=== PATIENT | female | born 1945 | race Caucasian/White ===

== ENCOUNTER 2019-07-17 17:29 | Inpatient (IN) | payer MEDICARE, MEDICAID, SELFPAY ==
[2019-07-17 17:30] VITALS: BP 137/50; PULSE 121; RESP 26; TEMP 37.4; O2SAT 92; BMI 42.9
--- NOTE | 2019-07-17 17:38 | W.ED.NAVMDI ---
Documented by User: Alex Ball DO 07/19/19 06:46 HPI - Nausea/Vomiting/Diarrhea General: Chief complaint: Abdominal Pain Stated complaint: n/v Time Seen by Provider: 07/17/19 17:33 History of Present Illness: HPI Narrative: 74-year-old female presents emergency room with complaints of nausea vomiting had a couple episodes of diarrhea yesterday denies hematochezia melena hematemesis or coffee-ground emesis. She has had recurrent UTIs in the past. She reports a low-grade fever and feeling very dry. MD elicited complaint: nausea, vomiting, diarrhea and abdominal pain (Mild diffuse) Onset (ago): day(s) (2-3) Associated nausea: Yes Associated symtoms: Reports anxiety, fatigue, malaise and nausea; Denies bloating, chest pain or dysuria Review of Systems Const: Reports: fever, chills, body aches, change in appetite, fatigue and malaise ENMT: Denies: throat pain, ear pain, nasal discharge or nasal congestion Card: Reports: shortness of breath on exertion (Chronic); Denies: chest pain, edema or shortness of breath when lying down Resp: Denies: shortness of breath, productive cough or non-productive cough GI: Reports: abdominal pain (Diffuse mild), nausea, vomiting and diarrhea (1-2 episodes yesterday); Denies: vomiting blood, coffee grounds in vomit, constipation, bloating, blood in stool or black tarry stool : Denies: flank pain, difficulty urinating, painful urination, urinary frequency or urinary urgency Musc: Reports: back pain (Chronic) Skin/Breast: Denies: rash or itching Psych: Reports: anxiety Ramsey/Lymph: Reports: easy bruising PFSH ED PFSH: Statuses (acute, chronic, etc) shown below reflect problem list status as previously entered and may not be historically accurate Medical History (Updated 07/19/19 @ 06:45 by Alex Ball DO) C. difficile colitis (Acute) Chronic atrial fibrillation (Acute) COPD (chronic obstructive pulmonary disease) (Acute) Coronary artery disease (Acute) Diabetes mellitus (Acute) Gastroesophageal reflux disease (Acute) History of ESBL E. coli infection (Acute) History of MRSA infection (Acute) History of small bowel obstruction (Acute) Medically managed to date HTN (hypertension), malignant (Acute) Hyperlipidemia (Acute) Morbid obesity (Acute) Surgical History History of appendectomy (Acute) History of bladder suspension procedure (Acute) History of cholecystectomy (Acute) History of orthopedic surgery (Acute) Wrist and left leg History of tubal ligation (Acute) Family History Other CAD (coronary artery disease) Cancer Social History Smoking and tobacco status: former smoker Alcohol intake: never Substance/Drug Use: never Caregiver/support person: Yes (Son as well as some home health) Physical Exam Const: COMMON NORMALS: no apparent distress GENERAL APPEARANCE: cooperative and comfortable ORIENTATION/CONSCIOUSNESS: Yes awake, Yes oriented to person, Yes oriented to place and Yes oriented to time HENMT: COMMON NORMALS: normocephalic, head/scalp atraumatic, hearing grossly normal bilaterally, external ears normal, EAC's normal, TM's normal bilaterally, nasal mucous membranes and turbinates normal, moist oral mucous membranes and oropharynx normal HEAD & SCALP: normocephalic and atraumatic NOSE: nasal mucous membranes and turbinates normal EXTERNAL EAR: Yes external ears normal EXTERNAL AUDITORY CANAL: EAC's normal TYMPANIC MEMBRANE: TM's normal bilaterally Eye: COMMON NORMALS: PERRL, EOMs intact bilaterally, conjunctivae normal and no scleral icterus CONJUNCTIVA: Yes conjunctivae normal PUPIL: Yes PERRL Neck/C-Spine: COMMON NORMALS: full ROM, no lymphadenopathy, supple and no JVD Lymph: LYMPHATIC: no lymphadenopathy noted and no lymphedema noted Resp: COMMON NORMALS: normal respiratory effort, no retractions, no use of accessory muscles and clear to auscultation bilaterally AUSCULTATION: clear to auscultation bilaterally Cardio: COMMON NORMALS: no JVD, regular rate, regular rhythm and no murmurs RATE: regular rate RHYTHM: regular rhythm GI: COMMON NORMALS: soft to palpation AUSCULTATION: Yes normoactive bowel sounds PALPATION: Yes soft, Yes tender (Mild diffuse), No guarding and No rigid Extremity: COMMON NORMALS: normal to inspection, normal capillary refill, no clubbing, cyanosis or edema, no calf tenderness and no pedal edema Neuro: SENSORIUM/ORIENTATION: Yes oriented to person, Yes oriented to place and Yes oriented to time Skin: COMMON NORMALS: no rashes or lesions noted GENERAL SKIN EXAM: no rashes or lesions noted Course ED course: Patient initially seen by myself and chart chart signed off to Dr. Nielsen. I had examined patient and ordered initial labs. Vital Signs: Vital signs: Vital Signs Temperature 98.7 F 07/19/19 03:26 Pulse Rate 91 07/19/19 06:00 Respiratory Rate 22 H 07/19/19 06:00 Blood Pressure 105/69 07/19/19 06:00 Pulse Oximetry 97 07/19/19 06:00 MDM - Nausea/Vomiting/Diarrhea Lab Data: Labs: Lab Results 07/17/19 07/17/19 07/17/19 Range/Units 17:58 17:58 17:58 WBC 22.9 H (4.0-10.0) 10^3/ uL RBC 5.35 H (4.1-5.3) 10^6/u L Hgb 15.4 H (11.5-15.3) g/dL Hct 49.3 H (37.0-47.0) % MCV 92.1 (81-99) fL MCH 28.8 (28.0-34.0) pg MCHC 31.2 (30.0-36.0) g/dL RDW 14.2 (12.1-15.1) % Plt Count 253 (130-400) 10^3/c mm MPV 12.4 H (7.4-10.4) fL Neut % (Auto) 85.3 % Lymph % (Auto) 3.8 % [place] % (Auto) 9.8 % Eos % (Auto) 0.0 % Baso % (Auto) 0.4 % Neut # (Auto) 19.6 H (1.8-7.7) 10^3/u L Lymph # (Auto) 0.9 (0.8-4.8) 10^3/u L [place] # (Auto) 2.2 H (0.2-0.9) 10^3/u L Eos # (Auto) 0.0 (0.0-0.8) 10^3/u L Baso # (Auto) 0.1 (0.0-0.1) 10^3/u L Nucleated RBC % (a uto) 0 % Nucleated RBCs # 0.0 /100WBC PT (10.5-13.3) SECO NDS INR (0.8-1.2) Sodium 129 L (136-145) mmol/L Potassium 3.8 (3.5-5.1) mmol/L Chloride 84 L (98-107) mmol/L Carbon Dioxide 30 H (22-29) mmol/L Anion Gap 18.8 (5-19) BUN 30 H (8-23) mg/dL Creatinine 1.1 H (0.5-0.9) mg/dL Glucose 605 H* (74-106) mg/dL Lactic Acid (0.5-2.2) mmol/L Lactate 2.9 H (0.5-2.2) mmol/L Calcium 10.1 (8.8-10.2) mg/Dl Total Bilirubin 0.5 (0.15-1.2) mg/dL AST 15 (0-32) U/L ALT 18 (0-33) U/L Alkaline Phosphata se 158 H (35-105) IU/L Total Protein 7.1 (6.6-8.7) g/dL Albumin 3.6 (3.5-5.2) g/dL Globulin 3.5 (1.3-4.6) g/dL 07/17/19 07/17/19 Range/Units 17:58 21:44 WBC (4.0-10.0) 10^3/ uL RBC (4.1-5.3) 10^6/u L Hgb (11.5-15.3) g/dL Hct (37.0-47.0) % MCV (81-99) fL MCH (28.0-34.0) pg MCHC (30.0-36.0) g/dL RDW (12.1-15.1) % Plt Count (130-400) 10^3/c mm MPV (7.4-10.4) fL Neut % (Auto) % Lymph % (Auto) % [place] % (Auto) % Eos % (Auto) % Baso % (Auto) % Neut # (Auto) (1.8-7.7) 10^3/u L Lymph # (Auto) (0.8-4.8) 10^3/u L [place] # (Auto) (0.2-0.9) 10^3/u L Eos # (Auto) (0.0-0.8) 10^3/u L Baso # (Auto) (0.0-0.1) 10^3/u L Nucleated RBC % (a uto) % Nucleated RBCs # /100WBC PT 15.50 H (10.5-13.3) SECO NDS INR 1.19 (0.8-1.2) Sodium (136-145) mmol/L Potassium (3.5-5.1) mmol/L Chloride (98-107) mmol/L Carbon Dioxide (22-29) mmol/L Anion Gap (5-19) BUN (8-23) mg/dL Creatinine (0.5-0.9) mg/dL Glucose (74-106) mg/dL Lactic Acid 4.6 H* (0.5-2.2) mmol/L Lactate (0.5-2.2) mmol/L Calcium (8.8-10.2) mg/Dl Total Bilirubin (0.15-1.2) mg/dL AST (0-32) U/L ALT (0-33) U/L Alkaline Phosphata se (35-105) IU/L Total Protein (6.6-8.7) g/dL Albumin (3.5-5.2) g/dL Globulin (1.3-4.6) g/dL Discharge Plan Discharge Patient Disposition: Admitted As Inpatient Admit Provider: Kerry Cruz Clinical Impression: Small bowel obstruction, Diabetes mellitus, Acute kidney injury, Chronic atrial fibrillation, Dehydration, Severe sepsis Condition: Stable Interventions: ED Discharge Assessment Last Done: 07/18/19 00:14 Discharge Date/Time: 07/18/19 00:16 Coding Level of Care Code ED Applications Engineer for [place] Fwd Exam Problem Focused Documented by User: Luna Nielsen MD 07/18/19 00:05 HPI - Nausea/Vomiting/Diarrhea General: Chief complaint: Abdominal Pain Stated complaint: n/v Time Seen by Provider: 07/17/19 17:33 PFSH ED PFSH: Statuses (acute, chronic, etc) shown below reflect problem list status as previously entered and may not be historically accurate Medical History (Updated 07/19/19 @ 06:45 by Alex Ball DO) C. difficile colitis (Acute) Chronic atrial fibrillation (Acute) COPD (chronic obstructive pulmonary disease) (Acute) Coronary artery disease (Acute) Diabetes mellitus (Acute) Gastroesophageal reflux disease (Acute) History of ESBL E. coli infection (Acute) History of MRSA infection (Acute) History of small bowel obstruction (Acute) Medically managed to date HTN (hypertension), malignant (Acute) Hyperlipidemia (Acute) Morbid obesity (Acute) Surgical History History of appendectomy (Acute) History of bladder suspension procedure (Acute) History of cholecystectomy (Acute) History of orthopedic surgery (Acute) Wrist and left leg History of tubal ligation (Acute) Family History Other CAD (coronary artery disease) Cancer Social History Smoking and tobacco status: former smoker Alcohol intake: never Substance/Drug Use: never Caregiver/support person: Yes (Son as well as some home health) Course Vital Signs: Vital signs: Vital Signs Temperature 98.7 F 07/19/19 03:26 Pulse Rate 91 07/19/19 06:00 Respiratory Rate 22 H 07/19/19 06:00 Blood Pressure 105/69 07/19/19 06:00 Pulse Oximetry 97 07/19/19 06:00 MDM - Nausea/Vomiting/Diarrhea MDM Narrative: Medical decision making narrative: Patient presents here with fever does have a white count and slightly elevated lactic acid. Patient likely has a UTI also has a small bowel obstruction likely causing her vomiting. Patient given IV antibiotics here and fluids and I spoke to hospitalist and will admit to the ICU. Patient has been stable while here with a normal blood pressure. Lab Data: Labs: Lab Results 07/17/19 07/17/19 07/17/19 Range/Units 17:58 17:58 17:58 WBC 22.9 H (4.0-10.0) 10^3/ uL RBC 5.35 H (4.1-5.3) 10^6/u L Hgb 15.4 H (11.5-15.3) g/dL Hct 49.3 H (37.0-47.0) % MCV 92.1 (81-99) fL MCH 28.8 (28.0-34.0) pg MCHC 31.2 (30.0-36.0) g/dL RDW 14.2 (12.1-15.1) % Plt Count 253 (130-400) 10^3/c mm MPV 12.4 H (7.4-10.4) fL Neut % (Auto) 85.3 % Lymph % (Auto) 3.8 % [place] % (Auto) 9.8 % Eos % (Auto) 0.0 % Baso % (Auto) 0.4 % Neut # (Auto) 19.6 H (1.8-7.7) 10^3/u L Lymph # (Auto) 0.9 (0.8-4.8) 10^3/u L [place] # (Auto) 2.2 H (0.2-0.9) 10^3/u L Eos # (Auto) 0.0 (0.0-0.8) 10^3/u L Baso # (Auto) 0.1 (0.0-0.1) 10^3/u L Nucleated RBC % (a uto) 0 % Nucleated RBCs # 0.0 /100WBC PT (10.5-13.3) SECO NDS INR (0.8-1.2) Sodium 129 L (136-145) mmol/L Potassium 3.8 (3.5-5.1) mmol/L Chloride 84 L (98-107) mmol/L Carbon Dioxide 30 H (22-29) mmol/L Anion Gap 18.8 (5-19) BUN 30 H (8-23) mg/dL Creatinine 1.1 H (0.5-0.9) mg/dL Glucose 605 H* (74-106) mg/dL Lactic Acid (0.5-2.2) mmol/L Lactate 2.9 H (0.5-2.2) mmol/L Calcium 10.1 (8.8-10.2) mg/Dl Total Bilirubin 0.5 (0.15-1.2) mg/dL AST 15 (0-32) U/L ALT 18 (0-33) U/L Alkaline Phosphata se 158 H (35-105) IU/L Total Protein 7.1 (6.6-8.7) g/dL Albumin 3.6 (3.5-5.2) g/dL Globulin 3.5 (1.3-4.6) g/dL 07/17/19 07/17/19 Range/Units 17:58 21:44 WBC (4.0-10.0) 10^3/ uL RBC (4.1-5.3) 10^6/u L Hgb (11.5-15.3) g/dL Hct (37.0-47.0) % MCV (81-99) fL MCH (28.0-34.0) pg MCHC (30.0-36.0) g/dL RDW (12.1-15.1) % Plt Count (130-400) 10^3/c mm MPV (7.4-10.4) fL Neut % (Auto) % Lymph % (Auto) % [place] % (Auto) % Eos % (Auto) % Baso % (Auto) % Neut # (Auto) (1.8-7.7) 10^3/u L Lymph # (Auto) (0.8-4.8) 10^3/u L [place] # (Auto) (0.2-0.9) 10^3/u L Eos # (Auto) (0.0-0.8) 10^3/u L Baso # (Auto) (0.0-0.1) 10^3/u L Nucleated RBC % (a uto) % Nucleated RBCs # /100WBC PT 15.50 H (10.5-13.3) SECO NDS INR 1.19 (0.8-1.2) Sodium (136-145) mmol/L Potassium (3.5-5.1) mmol/L Chloride (98-107) mmol/L Carbon Dioxide (22-29) mmol/L Anion Gap (5-19) BUN (8-23) mg/dL Creatinine (0.5-0.9) mg/dL Glucose (74-106) mg/dL Lactic Acid 4.6 H* (0.5-2.2) mmol/L Lactate (0.5-2.2) mmol/L Calcium (8.8-10.2) mg/Dl Total Bilirubin (0.15-1.2) mg/dL AST (0-32) U/L ALT (0-33) U/L Alkaline Phosphata se (35-105) IU/L Total Protein (6.6-8.7) g/dL Albumin (3.5-5.2) g/dL Globulin (1.3-4.6) g/dL Imaging Data^: CXR: My impression: no acute abnormality Discharge Plan Discharge Patient Disposition: Admitted As Inpatient Admit Provider: Kerry Cruz Clinical Impression: Small bowel obstruction, Diabetes mellitus, Acute kidney injury, Chronic atrial fibrillation, Dehydration, Severe sepsis Condition: Stable Interventions: ED Discharge Assessment Last Done: 07/18/19 00:14 Discharge Date/Time: 07/18/19 00:16 Coding Level of Care Code ED Applications Engineer for [place] Fwd Exam Problem Focused
--- NOTE | 2019-07-17 17:43 | XR_ITS ---
WS: [id number] Portable AP upright chest, 07/17/2019, 1755 hours Clinical Data: Dyspnea Comparison: Portable chest, 05/20/2019. Findings: No nodules, masses or effusions are seen. The heart is normal. The pulmonary vascularity is not increased. No pneumonia or pneumothorax is seen. There is atelectasis and/or effusion at the lef t costophrenic angle. The aortic arch and descending aorta show calcification and tortuosity. There i s a slight dextroscoliosis. XR/XR chest 1V portable [id number] Impression: 1. Minimal atelectasis and/or effusion at left costophrenic angle. 2. Atherosclerosis.
[2019-07-17 18:04] LABS: Basophils # 0.1 10^3/uL (0.0-0.1); Basophils % 0.4 %; Hematocrit 49.3 % (37.0-47.0); Hemoglobin 15.4 g/dL (11.5-15.3); Lymphocytes # 0.9 10^3/uL (0.8-4.8); Lymphocytes % 3.8 %; Mean Corpuscular HGB Conc 31.2 g/dL (30.0-36.0); Mean Corpuscular Hemoglobin 28.8 pg (28.0-34.0); Mean Corpuscular Volume 92.1 fL (81-99); Mean Platelet Volume 12.4 fL (7.4-10.4); Monocytes # 2.2 10^3/uL (0.2-0.9); Monocytes % 9.8 %; Neutrophils # 19.6 10^3/uL (1.8-7.7); Neutrophils % 85.3 %; Nucleated Red Blood Cells % 0 %; Platelet Count 253 10^3/cmm (130-400); Red Blood Count 5.35 10^6/uL (4.1-5.3); Red Cell Distribution Width 14.2 % (12.1-15.1); White Blood Count 22.9 10^3/uL (4.0-10.0)
--- NOTE | 2019-07-17 18:16 | CTR_ITS ---
PROCEDURE INFORMATION: Exam: CT Abdomen And Pelvis With Contrast Exam date and time: 07/17/2019 6:32 PM Age: 74 years old Clinical indication: Nausea and vomiting; Abdominal pain; Prior surgery; Surgery type: Left femur, hyst, gb, appy; Additional info: Abd pain TECHNIQUE: Imaging protocol: Computed tomography of the abdomen and pelvis with intravenous contrast. Total DLP: 1810.75 mGy-cm Radiation optimization: All CT scans at this facility use at least one of these dose optimization techniques: automated exposure control; mA and/or kV adjustment per patient size (includes targeted exams where dose is matched to clinical indication); or iterative reconstruction. Contrast material: VISI 320; Contrast volume: 95 ml; Contrast route: IV; COMPARISON: CT abdomen pelvis w con* [id number] 02/01/2018 3:00 PM FINDINGS: Liver: There is no focal abnormality within the liver. Gallbladder and bile ducts: There has been a cholecystectomy. Pancreas: The pancreas is normal. Spleen: The spleen is normal. Adrenals: The adrenal glands are normal. Kidneys and ureters: Normal. No hydronephrosis. Stomach and bowel: Mild diverticulosis is present in the distal colon. There is no evidence of colitis/diverticulitis. There are dilated proximal small bowel loops and nondilated distal small bowel loops and colon. There is point of transition in the mid pelvis, likely representing adhesions. Appendix: Not identified Intraperitoneal space: Unremarkable. No free air. No significant fluid collection. Vasculature: The aorta demonstrates moderate atherosclerotic calcification. Lymph nodes: Unremarkable. No enlarged lymph nodes. Bladder: Unremarkable as visualized. Reproductive: There has been a hysterectomy. Bones/joints: Degenerative changes in the thoracic and lumbar spine are stable including severe compression deformity of L1. Soft tissues: Small periumbilical hernia containing fat is again identified. CT/CT abdomen pelvis w con* [id number] IMPRESSION: Small bowel obstruction Radiation Dose CTDIVOL = (mGy): DLP = 1810.75 (mGy-cm)
[2019-07-17 18:23] LABS: Alanine Aminotransferase 18 U/L (0-33); Albumin Level 3.6 g/dL (3.5-5.2); Alkaline Phosphatase 158 IU/L (35-105); Anion Gap 18.8 (5-19); Aspartate Amino Transferase 15 U/L (0-32); Blood Urea Nitrogen 30 mg/dL (8-23); Calcium 10.1 mg/Dl (8.8-10.2); Carbon Dioxide 30 mmol/L (22-29); Chloride 84 mmol/L (98-107); Globulin 3.5 g/dL (1.3-4.6); Potassium 3.8 mmol/L (3.5-5.1); Sodium 129 mmol/L (136-145); Total Bilirubin 0.5 mg/dL (0.15-1.2); Total Protein 7.1 g/dL (6.6-8.7)
[2019-07-17 18:30] LABS: Glucose 605 mg/dL (74-106)
[2019-07-17 18:32] LABS: Lactate (Lactic Acid level) 2.9 mmol/L (0.5-2.2)
[2019-07-17 18:37] VITALS: PULSE 119; RESP 17; O2SAT 91
--- NOTE | 2019-07-17 19:55 | PC.NURSE ---
linen change and hygiene clean completed. pt tolerated well. pt placed in gown and given blanket. pt placed on vital sign monitor, no further needs stated at this time.
[2019-07-17 19:56] VITALS: BP 91/68; O2SAT 97
--- NOTE | 2019-07-17 19:56 | PC.NURSE ---
RN and ED physician notified of blood pressure.
[2019-07-17] MEDS: insulin regular-human 100 units/1 mL 10 UNIT IVP (20:05)
[2019-07-17] MEDS: iodixanol 320 mg/mL 100mL Btl 95 ML IV (20:13)
[2019-07-17] MEDS: sodium chloride 0.9% 1,000 ML 999 ML IV ×2 (20:21→23:08)
[2019-07-17 20:22] VITALS: BP 100/81; PULSE 131; RESP 22; O2SAT 92
--- NOTE | 2019-07-17 20:54 | PC.NURSE ---
This nurse attempted multiple times to place moses catheter, patient's diana area excoriated, with patches of white clumpy discharge. After multiple attempts, MD was notified concerning failed attempts. Provider instructed that urine sample was needed and to place her on a bedpan to obtain sample.
[2019-07-17] MEDS: acetaminophen 325 mg Tablet 650 MG PO (20:56)
--- NOTE | 2019-07-17 21:45 | ECG_ITS ---
Measurements Intervals [place] Rate: 112 P: VT: 0 QRS: -7 QRSD: 73 T: 20 QT: 298 QTc: 408 Sinus tachycardia with significant baseline artifact LOW QRS VOLTAGE IN PRECORDIAL LEADS [QRS DEFLECTION < 1.0 mV IN CHEST LEADS] POSSIBLE ANTERIOR MYOCARDIAL INFARCTION [30 ms Q WAVE IN V3/V4, OR R < 0.2 mV IN V4], PROBABLY OLD POSSIBLE INFERIOR MYOCARDIAL INFARCTION [30 ms Q WAVE IN II/aVF], PROBABLY OLD ABNORMAL RHYTHM ECG Compared to ECG 05/20/2019 14:30:22 Myocardial infarct finding still present Electronically Signed On 07-18-2019 14:43:51 ARCHITECTURAL EXAMINER by Emerson Mcdermott M.D. [email or web address]
[2019-07-17] MEDS: aztreonam 2,000 MG in sodium chloride 0.9% (plus) 100 ML 200 MG IV (21:52)
[2019-07-17 22:21] LABS: Lactic Acid 4.6 mmol/L (0.5-2.2)
[2019-07-17 22:22] LABS: INR 1.19 (0.8-1.2)
[2019-07-17 22:34] LABS: ABG PCO2 44.3 mmHg (35-45); ABG PH Result 7.44 (7.35-7.45); Base Excess ABG 4.7 mmol/L (-2.0-2.0); Blood Gas Allen Test Pos; Blood Gas Sample Site Radial, right; Blood Gas Sample Type Arterial; HCO3 ABG 29.7 mmol/L (22-26); PO2 ABG 60.4 mmHg (80.0-100.0)
[2019-07-17 22:42] VITALS: BP 138/89; PULSE 115; RESP 26; O2SAT 91
[2019-07-17 23:00] VITALS: BP 111/85; PULSE 120; RESP 23; O2SAT 96
--- NOTE | 2019-07-17 23:10 | XR_ITS ---
WS: [id number] Portable AP upright chest, 07/17/2019, 2349 hours. Clinical Data: post NG tube Comparison: Portable chest, yesterday, 1755 hours. Findings: There is a nasogastric tube which appears to end in the stomach. The minimal atelectasis an d/or small effusion in the left costophrenic angle remains unchanged. No nodules, masses or effusions are seen. No pneumonia or pneumothorax is present. The aortic arch and descending aorta show minimal calcification and tortuosity. There is a minimal dextroscoliosis. XR/XR chest 1V portable [id number] Impression: 1. Nasogastric tube in good position. 2. No change in atelectasis and/or small left pleural effusion.
[2019-07-17 23:36] LABS: Glucose Point of Care 470 mg/dL (70-110)
[2019-07-18] VITALS (23 sets, daily range): BP systolic 80–169; BP diastolic 47–88; PULSE 87–120; RESP 12–26; TEMP 36.6–37.6; O2SAT 90–99; BMI 37.8
--- NOTE | 2019-07-18 00:12 | P.HP_ITS ---
Providers/Chief Complaint Admitting Physician: Kerry Cruz MD Primary Care Provider: Elaine Topete Chief Complaint: n/v History of Present Illness Purvi Sparks is a 74 year old female who presented to the emergency room with nausea and vomiting today. She had some loose bowel movements 2 days ago but has not had a bowel movement since then. She is had some mild abdominal discomfort primarily in the lower and central quadrant area. Emesis has been bilious in nature with no blood noted. There have been reports of some low- grade fevers. She has had some incontinence of urine but denies any other urinary changes. She has had a little bit of a cough and some shortness of breath but denied any chest pain. Escalation in her symptoms led to the ED visit today. In the emergency room a CT of the abdomen was done and showed evidence of dilated proximal small bowel with a transition point consistent with small bowel obstruction. NG tube was placed. She is being admitted for further evaluation and treatment. She has multiple laboratory study abnormalities. She has not been hypotensive but has been quite tachycardic. Thus far she is received 2 L of fluid. She also received some vancomycin and Azactam in the ER. Blood cultures have been collected. Her sugars were greater than 600 and she received some regular insulin. Review of Systems Const: Reports: fever, chills, body aches, fatigue, malaise and daytime sleepiness Eyes: Reports: change in vision ENMT: Reports: dry mouth and nasal congestion Card: Reports: chest pain and lightheadedness; Denies: edema Resp: Reports: shortness of breath, productive cough and non-productive cough GI: Reports: abdominal pain, nausea, vomiting, diarrhea, cramping and change in bowel habits; Denies: vomiting blood, belching, excessive passing of gas, blood in stool or black tarry stool : Reports: urinary incontinence; Denies: blood in urine Musc: Reports: extremity pain, muscle cramps and muscle weakness Skin/Breast: Reports: rash (groin, recently given some nystatin powder) Neuro: Reports: weakness in extremities (general) and difficulty walking Psych: Reports: anxiety and sleeping more Medications/Allergies Home Medications Medication Instructions Recorded Confirmed Last Taken Type apixaban [Eliquis] 5 mg PO BID 07/18/19 07/18/19 Unknown History diltiazem HCl 60 mg PO TID 07/18/19 07/18/19 Unknown History fluoxetine [Prozac] 20 mg PO DAILY 07/18/19 07/18/19 Unknown History furosemide [Lasix] 40 mg PO DAILY 07/18/19 07/18/19 Unknown History hydrocodone-acetaminophen [[place]] 1 tab PO Q6H PRN 07/18/19 07/18/19 Unknown History lisinopril 5 mg PO DAILY 07/18/19 07/18/19 Unknown History ondansetron HCl [Zofran] 4 mg PO Q6H PRN 07/18/19 07/18/19 Unknown History oxybutynin chloride 5 mg PO BID 07/18/19 07/18/19 Unknown History ropinirole 1 mg PO DAILY 07/18/19 07/18/19 Unknown History rosuvastatin 10 mg PO DAILY 07/18/19 07/18/19 Unknown History Allergies Allergy/AdvReac Type Severity Reaction Status Date / Time morphine Allergy ALGY-Rash Verified 07/17/19 17:47 quinine Allergy ALGY-Rash Verified 07/17/19 17:47 Sulfa (Sulfonamide Allergy ALGY-Rash Verified 07/17/19 17:47 Antibiotics) Penicillins AdvReac ALGY-Rash Verified 07/17/19 17:47 PFSH Acute PFSH: Statuses (acute, chronic, etc) shown below reflect problem list status as previously entered and may not be historically accurate Medical History Chronic atrial fibrillation (Acute) COPD (chronic obstructive pulmonary disease) (Acute) Coronary artery disease (Acute) Diabetes mellitus (Acute) Gastroesophageal reflux disease (Acute) History of ESBL E. coli infection (Acute) History of MRSA infection (Acute) History of small bowel obstruction (Acute) Medically managed to date HTN (hypertension), malignant (Acute) Hyperlipidemia (Acute) Morbid obesity (Acute) Surgical History History of appendectomy (Acute) History of bladder suspension procedure (Acute) History of cholecystectomy (Acute) History of orthopedic surgery (Acute) Wrist and left leg History of tubal ligation (Acute) Family History Other CAD (coronary artery disease) Cancer Social History Smoking and tobacco status: former smoker Alcohol intake: never Substance/Drug Use: never Caregiver/support person: Yes (Son as well as some home health) Vitals/I&O/Wt Last Vital Signs Temp 99.4 F 07/17/19 17:30 Pulse 120 H 07/17/19 23:00 Resp 23 H 07/17/19 23:00 BP 111/85 07/17/19 23:00 Pulse Ox 96 07/17/19 23:00 07/17/19 07/17/19 07/18/19 14:59 22:59 06:59 Intake Total 1100 / 1100 Balance 1100 / 1100 Weight last 48 hrs Weight 113.398 kg Physical Exam Const: COMMON NORMALS: alert GENERAL APPEARANCE: frail appearing and other (ill appearing) NUTRITIONAL APPEARANCE: obese HENMT: COMMON NORMALS: normocephalic MOUTH: other (dry) Eye: COMMON NORMALS: EOMs intact bilaterally and no scleral icterus Neck/C-Spine: COMMON NORMALS: supple and no meningeal signs Resp: COMMON NORMALS: no retractions and clear to auscultation bilaterally EFFORT & INSPECTION: Yes tachypneic AUSCULTATION: diminished lung sounds bilateral in the lower lung guadalupe Cardio: COMMON NORMALS: peripheral pulses 2+ throughout RATE: tachycardic RHYTHM: regular rhythm PERIPHERAL PULSES: other (brisk cap refill) GI: COMMON NORMALS: soft to palpation AUSCULTATION: Yes hypoactive bowel sounds PALPATION: No firm, Yes tender Details: LLQ (mild, no rebound or gaurding), No guarding, No rigid and No rebound tenderness present : BLADDER/KIDNEY EXAM: Yes catheter in place Catheter type (Female): urethral Extremity: COMMON NORMALS: no pedal edema NARRATIVE EXTREMITY EXAM: some deformity left foot with dorsiflexion Skin: GENERAL SKIN EXAM: dry skin, no mottling and turgor decreased RASHES: rashes noted (erythema, some sores groin area, odorous) Urinary Catheter Management^: Curry: Cath Placed During This Visit: no Urethral Indwelling: Yes Reason for Continuing Indwelling Catheter: Accurate Measurement of Urinary Output in Critically Ill Patients Sepsis: Is patient septic: Yes Focused sepsis exam performed: Yes Date exam was performed: 07/17/19 Time exam was performed: 10:15 Data Micro: Micro: Microbiology 07/17/19 20:00 Blood Culture - Pr eliminary Blood SPE[facility]IMEN [facility] 07/17/19 17:58 Blood Culture - Pr eliminary Blood SPECIMEN [facility] Other Data: Other data: 07/17/19 Range/Units 17:58 Sodium 129 L (136-145) mmol/L Potassium 3.8 (3.5-5.1) mmol/L Chloride 84 L (98-107) mmol/L Carbon Dioxide 30 H (22-29) mmol/L BUN 30 H (8-23) mg/dL Creatinine 1.1 H (0.5-0.9) mg/dL Glucose 605 H* (74-106) mg/dL Calcium 10.1 (8.8-10.2) mg/Dl AST 15 (0-32) U/L ALT 18 (0-33) U/L Alkaline Phosphata se 158 H (35-105) IU/L Total Protein 7.1 (6.6-8.7) g/dL Albumin 3.6 (3.5-5.2) g/dL 07/17/19 07/17/19 07/17/19 Range/Units 17:58 17:58 17:58 WBC 22.9 H (4.0-10.0) 10^3/ uL Hgb 15.4 H (11.5-15.3) g/dL Hct 49.3 H (37.0-47.0) % Plt Count 253 (130-400) 10^3/c mm PT 15.50 H (10.5-13.3) SECO NDS INR 1.19 (0.8-1.2) Lactic Acid (0.5-2.2) mmol/L Lactate 2.9 H (0.5-2.2) mmol/L 07/17/19 Range/Units 21:44 WBC (4.0-10.0) 10^3/ uL Hgb (11.5-15.3) g/dL Hct (37.0-47.0) % Plt Count (130-400) 10^3/c mm PT (10.5-13.3) SECO NDS INR (0.8-1.2) Lactic Acid 4.6 H* (0.5-2.2) mmol/L Lactate (0.5-2.2) mmol/L A&P Assessment and plan (1) Small bowel obstruction: Last bowel movement was a couple of days ago and was liquid in nature. She has had previous bowel obstructions that have been medically managed. Transition point is noted. Case has been discussed with Dr. Marina to make him aware of the situation but not demonstrating clinical findings of surgical abdomen at the moment. Status: Acute Code(s): K56.609 - Unspecified intestinal obstruction, unspecified as to partial versus complete obstruction (2) Severe sepsis: As evidenced by leukocytosis, tachycardia, suspected infection, acute kidney injury, lactic acidosis. Specific foci is not fully clear at this point in time. Abdomen is certainly a possibility however her physical exam does not go along with this being the source of such a significant infection. I still do not have any urine. No obvious pneumonia. She has some skin findings in the groin. Thus far her blood pressure is remaining stable fortunately. Status: Acute Code(s): A41.9 - Sepsis, unspecified organism; R65.20 - Severe sepsis without septic shock (3) Acute kidney injury: In May BUN and creatinine were 14/0.6 Status: Acute Code(s): N17.9 - Acute kidney failure, unspecified (4) Diabetes mellitus: Not controlled at all currently. I suspect some degree of chronic hyperglycemia exacerbated by the acute issues. 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 Marina, I have discussed with him Hold Eliquis secondary to potential need for surgical intervention SCDs for DVT prophylaxis presently Reattempt Curry catheter placement and get urinalysis, need to be able to watch urine output closely Subcutaneous insulin, monitor for need to initiate insulin drip Medications will be held presently Monitor closely for clinical decline Supportive care otherwise Full code I had an opportunity discussed with patient and son as well as with her earlier and get both an opportunity to ask questions. Attestations Medical Necessity Statement*: Anticipated stay greater than 2 midnights in a patient with small bowel obstruction and evidence of sepsis. Going to the ICU for critical care management. Other issues as noted. Coding Level of Care Code Acute Law Firm Partner for [facility] Fwd Diagnoses Small bowel obstruction K56.609 Severe sepsis A41.9; R65.20 Acute kidney injury N17.9 Diabetes mellitus E11.65; Z79.4 Diabetes mellitus type: type 2 Diabetes mellitus long term care pharmacist insulin use: with long term care pharmacist use Diabetes mellitus complication status: with hyperglycemia On apixaban therapy Z79.01 Chronic atrial fibrillation I48.20
--- NOTE | 2019-07-18 00:24 | XR_ITS ---
WS: [id number] Portable AP upright chest, 07/18/2019, 0300 hours. Clinical Data: cough Comparison: Portable chest, 07/17/2019, 2349 hours. Findings: The nasogastric tube remains in good position. There is minimal blunting of the left costop hrenic angle unchanged. The heart remains the same. The pulmonary vascularity is not increased. No pn eumonia or pneumothorax is seen. No nodules, masses or large effusions are seen. The aortic arch and descending aorta show calcification and tortuosity. There is a dextroscoliosis. Monitor leads are on the chest wall. XR/XR chest 1V portable [id number] Impression: 1. No change in nasogastric tube in minimal atelectasis and/or effusion in left costophrenic angle. 2. Negative for acute cardiovascular abnormalities.
[2019-07-18 00:29] LABS: Protein Urine Neg (Negative); Urine Appearance Cloudy (CLEAR); Urine Color Dark Yellow (Yellow); pH Urine 5 (5-7)
[2019-07-18 00:30] LABS: Add Urine Microscopic? YES; Bilirubin Urine 1+ (NEGATIVE); Blood Urine Neg (Negative); Glucose Urine UA 4+ (Normal); Ketones Urine Negative (Negative); Leukocyte Esterase Urine 1+ (Negative); Nitrate Urine Negative (Negative); Urobilinogen Urine Norm (Negative)
[2019-07-18 00:35] LABS: Add Urine Culture? No; Bacteria Urine 2+; RBC Urine 0-4 /hpf (0-2); Squamous Epithelial Cell Urine 15-25 (0-5)
--- NOTE | 2019-07-18 01:15 | PC.PHAR ---
Creatinine clearance is 77.6. Vancomycin is dosed at 2000mg IVPB every 24 hours to produce a predicted trough level of 18.74 (population based pharmacokinetic analysis). A trough level has been ordered from the lab to be obtained before the third dose to confirm and adjust if needed.
[2019-07-18] MEDS: metroNIDAZOLE IV 500 MG/100 ML PREMIX 100 MG IV ×2 (01:33→09:31)
[2019-07-18] MEDS: sodium chloride 0.9% 1,000 ML 150 ML IV ×2 (01:33→09:32)
[2019-07-18] MEDS: sodium chloride 0.9% 1,000 ML 999 ML IV (01:33)
[2019-07-18 01:52] LABS: Glucose Point of Care 456 mg/dL (70-110)
--- NOTE | 2019-07-18 01:53 | PC.NURSE ---
DR SHAWN ABDULLAHI WANTED NURSE TO CHECK BLOOD SUGAR. IT WAS 456. GAVE ORDER FOR 15 UNITS OF NOVOLOG.
[2019-07-18 03:07] LABS: Alanine Aminotransferase 17 U/L (0-33); Albumin Level 3.2 g/dL (3.5-5.2); Alkaline Phosphatase 119 IU/L (35-105); Anion Gap 13.7 (5-19); Aspartate Amino Transferase 17 U/L (0-32); Blood Urea Nitrogen 31 mg/dL (8-23); Calcium 9.1 mg/Dl (8.8-10.2); Carbon Dioxide 30 mmol/L (22-29); Chloride 89 mmol/L (98-107); Globulin 2.6 g/dL (1.3-4.6); Glucose 496 mg/dL (74-106); Magnesium 1.7 mg/dL (1.7-2.3); Phosphorus 2.6 mg/dL (2.5-4.5); Potassium 3.7 mmol/L (3.5-5.1); Sodium 129 mmol/L (136-145); Total Bilirubin 0.6 mg/dL (0.15-1.2); Total Protein 5.8 g/dL (6.6-8.7)
[2019-07-18 03:24] LABS: Basophils # 0.1 10^3/uL (0.0-0.1); Basophils % 0.6 %; Eosinophils % 0.1 %; Hematocrit 43.6 % (37.0-47.0); Hemoglobin 13.9 g/dL (11.5-15.3); Lymphocytes # 1.1 10^3/uL (0.8-4.8); Lymphocytes % 7.1 %; Mean Corpuscular HGB Conc 31.9 g/dL (30.0-36.0); Mean Corpuscular Volume 90.8 fL (81-99); Monocytes # 1.7 10^3/uL (0.2-0.9); Monocytes % 11.3 %; Neutrophils % 80.4 %; Nucleated Red Blood Cells % 0 %; Platelet Count 206 10^3/cmm (130-400); Red Cell Distribution Width 14.3 % (12.1-15.1); White Blood Count 14.9 10^3/uL (4.0-10.0)
[2019-07-18] MEDS: ondansetron 2 mg/ML SDV 2 mL 4 MG IVP (05:05)
--- NOTE | 2019-07-18 06:28 | PC.NURSE ---
SHIFT SUMMARY PT HAS BEEN ALERT AND SEEMS ORIENTATED. PT HAS BEEN TURNED Q2H. NO BREAKDOWN NOTED, SOME REDNESS UNDER BELLY FOLDS. NYSTATIN ORDERED. BOTTOM IS BLANCHING. PT IV REMAINS PATENT. PT STATES SHE DOES NOT WALK AT ALL. PT LUNGS REMAIN CLEAR, A FEW WHEEZES HAVE BEEN HEARD AT TIMES. NG TUBE IS ON LIS PER DR ABDULLAHI. SCDS APPLIED. PT COMPLAINED OF NAUSEA ONCE AND WAS GIVEN ZOFRAN TO PT.
[2019-07-18 07:01] LABS: Lactic Acid 2.5 mmol/L (0.5-2.2)
--- NOTE | 2019-07-18 07:37 | P.CONIM_ITS ---
Providers/Reason For Consult Consulting Physican/Specialty*: Reason for Consult*: Small bowel obstruction Attending Physician: Kerry Cruz MD Primary Care Provider: Elaine Topete History of Present Illness History of Present Illness Chief complaint : Nausea and vomiting HPI Purvi Sparks is a pleasant 74 year old female , presented to the emergency department with history of nausea and vomiting, patient has been having concomitant loose stools for the past couple of days or so but that after she did not have a bowel movement, yet she passed gas yesterday, recalls that she has some abdominal pain mostly in the lower part of the abdomen in addition patient does have some cough and shortness of breath, she presented to the emergency department a CT scan of the abdomen and pelvis showed small bowel obstruction, general surgery was consulted for further evaluation and potential management. NG tube was inserted in the ER not much came out Review of Systems Const: Reports: fever, chills, malaise, daytime sleepiness and other (Fatigue); Denies: body aches Eyes: Reports: change in vision ENMT: Reports: dry mouth Card: Reports: chest pain and lightheadedness Resp: Reports: shortness of breath GI: Reports: abdominal pain, nausea, vomiting and diarrhea; Denies: difficulty swallowing, constipation or blood in stool : Reports: urinary incontinence Neuro: Denies: headache Psych: Denies: anxiety or depression Meds/Allergies Home Medications and Allergies Home Medications Medication Instructions Recorded Confirmed Type apixaban [Eliquis] 5 mg PO BID 07/18/19 07/18/19 History diltiazem HCl 60 mg PO TID 07/18/19 07/18/19 History fluoxetine [Prozac] 20 mg PO DAILY 07/18/19 07/18/19 History furosemide [Lasix] 40 mg PO DAILY 07/18/19 07/18/19 History hydrocodone-acetaminophen [[place]] 1 tab PO Q6H PRN 07/18/19 07/18/19 History lisinopril 5 mg PO DAILY 07/18/19 07/18/19 History ondansetron HCl [Zofran] 4 mg PO Q6H PRN 07/18/19 07/18/19 History oxybutynin chloride 5 mg PO BID 07/18/19 07/18/19 History ropinirole 1 mg PO DAILY 07/18/19 07/18/19 History rosuvastatin 10 mg PO DAILY 07/18/19 07/18/19 History Allergies Allergy/AdvReac Type Severity Reaction Status Date / Time morphine Allergy ALGY-Rash Verified 07/17/19 17:47 quinine Allergy ALGY-Rash Verified 07/17/19 17:47 Sulfa (Sulfonamide Allergy ALGY-Rash Verified 07/17/19 17:47 Antibiotics) Penicillins AdvReac ALGY-Rash Verified 07/17/19 17:47 Current Medications Current Medications Generic Name Dose Route Start Last Admin Trade Name Freq PRN Reason Stop Dose Admin Sodium Chloride 1,000 mls @ 150 mls/hr 07/18/19 00:24 07/18/19 01:33 Sodium Chloride 0.9% IV 150 mls/hr .Q6H40M LATRICIA Administration Metronidazole 500 mg in 100 mls @ 100 mls/hr 07/18/19 00:24 07/18/19 02:35 Flagyl Iv IV Infused Q8H LATRICIA Infusion Protocol Ondansetron HCl 4 mg 07/18/19 00:24 07/18/19 05:05 Zofran IVP 4 mg Q8H PRN Administration vomiting, or N/V if npo PFSH Acute PFSH: Statuses (acute, chronic, etc) shown below reflect problem list status as previously entered and may not be historically accurate Medical History Chronic atrial fibrillation (Acute) COPD (chronic obstructive pulmonary disease) (Acute) Coronary artery disease (Acute) Diabetes mellitus (Acute) Gastroesophageal reflux disease (Acute) History of ESBL E. coli infection (Acute) History of MRSA infection (Acute) History of small bowel obstruction (Acute) Medically managed to date HTN (hypertension), malignant (Acute) Hyperlipidemia (Acute) Morbid obesity (Acute) Surgical History History of appendectomy (Acute) History of bladder suspension procedure (Acute) History of cholecystectomy (Acute) History of orthopedic surgery (Acute) Wrist and left leg History of tubal ligation (Acute) Family History Other CAD (coronary artery disease) Cancer Social History Smoking and tobacco status: former smoker Alcohol intake: never Substance/Drug Use: never Caregiver/support person: Yes (Son as well as some home health) Vitals/I&O/Wt Last Vital Signs Temp 97.9 F 07/18/19 06:14 Pulse 100 07/18/19 06:14 Resp 18 07/18/19 06:14 BP 99/55 07/18/19 06:39 Pulse Ox 96 07/18/19 06:14 07/17/19 07/18/19 07/18/19 22:59 06:59 14:59 Intake Total 1100 / 1100 100 / 1200 Output Total 1050 / 1050 Balance 1100 / 1100 -950 / 150 Weight last 48 hrs Weight 220 lb 9 oz Weight 250 lb Physical Exam Const: COMMON NORMALS: no apparent distress and oriented x3 GENERAL APPEARANCE: cooperative ORIENTATION/CONSCIOUSNESS: Yes awake, Yes oriented to person, Yes oriented to place and Yes oriented to time HENMT: COMMON NORMALS: normocephalic HEAD & SCALP: normocephalic Eye: COMMON NORMALS: PERRL and no scleral icterus PUPIL: Yes PERRL Neck/C-Spine: GENERAL: Yes other (NG in place) Lymph: LYMPHATIC: no lymphadenopathy noted Chest: COMMONS NORMALS: inspection of chest normal Resp: COMMON NORMALS: normal respiratory effort and clear to auscultation bilaterally AUSCULTATION: clear to auscultation bilaterally Cardio: COMMON NORMALS: S1 normal heart sound and S2 normal heart sound; negative for no murmurs HEART SOUNDS: S1 normal and S2 normal GI: COMMON NORMALS: soft to palpation; negative for no hepatosplenomegaly INSPECTION: Yes normal to inspection PALPATION: Yes soft, No firm, No tender, No guarding, No rigid, No no hepatosplenomegaly and Yes other (Right subcostal scar as well as lower midline scar from previous surgeries/obese) Neuro: COMMON NORMALS: oriented x3 SENSORIUM/ORIENTATION: Yes oriented to person, Yes oriented to place and Yes oriented to time Psych: COMMON NORMALS: mental status grossly normal Skin: COMMON NORMALS: no rashes or lesions noted GENERAL SKIN EXAM: no rashes or lesions noted Urinary Catheter Management^: Curry: Cath Placed During This Visit: no Data Micro: Micro: Microbiology 07/17/19 20:00 Blood Culture - Pr eliminary Blood SPECIMEN [facility] 07/17/19 17:58 Blood Culture - Pr eliminary Blood SPECIMEN [facility] A&P Assessment and plan (1) Severe sepsis: After thorough history physical examination and reviewing the chart and images with my personal interpretation, I do believe that the patient's picture likely due to underlying UTI and an incidental finding of bowel obstruction on images, yet the patient last time passed gas yesterday and she had a loose bowel movements couple of days ago, from surgical standpoint of view there is no acute surgical intervention with that regard I would highly recommend to continue NG to low intermittent wall suction. Pharmacologic DVT prophylaxis PPI therapy Repeated physical examination Treatment of UTI per hospitalist service Strict I's and O's We will follow on a.m. 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
[2019-07-18 08:10] LABS: Glucose Point of Care 171 mg/dL (70-110)
[2019-07-18] MEDS: nystatin powder 15 gm Btl 1 APPLIC TOPICAL ×2 (09:30→18:41)
[2019-07-18 11:26] LABS: Glucose Point of Care 160 mg/dL (70-110)
[2019-07-18] MEDS: aztreonam 1,000 MG in sodium chloride 0.9% (plus) 50 ML 100 MG IV ×2 (11:27→21:51)
[2019-07-18 14:22] LABS: Alanine Aminotransferase 16 U/L (0-33); Albumin Level 2.7 g/dL (3.5-5.2); Alkaline Phosphatase 93 IU/L (35-105); Aspartate Amino Transferase 17 U/L (0-32); Blood Urea Nitrogen 23 mg/dL (8-23); Calcium 8.5 mg/Dl (8.8-10.2); Carbon Dioxide 30 mmol/L (22-29); Chloride 101 mmol/L (98-107); Globulin 2.3 g/dL (1.3-4.6); Glucose 158 mg/dL (74-106); Sodium 139 mmol/L (136-145); Total Bilirubin 0.3 mg/dL (0.15-1.2)
[2019-07-18 15:19] LABS: Oxygen Device NC
[2019-07-18] MEDS: acetaminophen 325 mg Tablet 650 MG PO ×2 (15:43→21:52)
--- NOTE | 2019-07-18 16:02 | PM.PN ---
Subjective Subjective: Interval history: Admitted overnight. H&P and labs noted. Patient admitted and possible severe sepsis. As per the patient and her son bedside patient has been having multiple episodes of diarrhea for last 5 days and took 5 tablets of Imodium 2 days ago after which she has not been having any bowel movements and since then started to have nausea and vomiting. On review of home medications for months ago patient was given p.o. vancomycin by her PCP for C. difficile. Patient overnight found to have SBO on CT scan and was started on NG tube placement and surgery were consulted. At present patient states that she has been having some flatus but denies of having any bowel movements. Denies of having abdominal pain. NG tube continues to remain on intermittent suction. Patient has remained hemodynamically stable, afebrile. Medications: Reviewed: Yes Medication Review Details: Patient was on p.o. vancomycin last 4 months for C. difficile. Vitals/I&O/Wt Last Vital Signs Temp 97.9 F 07/18/19 08:00 Pulse 105 H 07/18/19 12:00 Resp 22 H 07/18/19 12:00 BP 103/47 07/18/19 12:00 Pulse Ox 96 07/18/19 12:00 07/18/19 07/18/19 07/18/19 06:59 14:59 22:59 Intake Total 100 / 1200 1150 / 1150 Output Total 1050 / 1050 400 / 400 Balance -950 / 150 750 / 750 Weight last 48 hrs Weight 100.045 kg Weight 113.398 kg Physical Exam Narrative: EXAM NARRATIVE: General: AO x3, lethargic, no acute distress, dehydrated HEENT: PERRLA, pupils bilaterally equal and reactive Chest: Normal vesicular breath sounds, no added sounds, equal good air entry bilaterally CVS: S1-S2 regular, heart rate more than 100, no murmurs, no tachycardia, no gallops, no rubs Abdomen: Soft, nontender, no organomegaly, bowel sounds sluggish, obese Neuro: No focal deficits, no facial deformity, AO x3, power 5/5 in all limbs Urinary Catheter Management^: Curry: Cath Placed During This Visit: no Data Micro: Micro: Microbiology 07/17/19 20:00 Blood Culture - Pr eliminary Blood SPECIMEN [facility] 07/17/19 17:58 Blood Culture - Pr eliminary Blood SPECIMEN [facility] A&P Assessment and plan (1) Severe sepsis: Status: Acute Code(s): A41.9 - Sepsis, unspecified organism; R65.20 - Severe sepsis without septic shock (2) Dehydration: Status: Acute Code(s): E86.0 - Dehydration (3) Uncontrolled blood glucose: Status: Acute Code(s): R73.09 - Other abnormal glucose (4) Acute kidney injury: Status: Acute Code(s): N17.9 - Acute kidney failure, unspecified (5) Diabetes mellitus: Status: Acute Qualifiers: Diabetes mellitus type: type 2 Diabetes mellitus assisted insulin use: with buttermaker continuous churn use Diabetes mellitus complication status: with hyperglycemia Qualified Code(s): E11.65 - Type 2 diabetes mellitus with hyperglycemia; Z79.4 - residential (current) use of insulin Code(s): E11.9 - Type 2 diabetes mellitus without complications (6) Small bowel obstruction: Status: Acute Code(s): K56.609 - Unspecified intestinal obstruction, unspecified as to partial versus complete obstruction (7) Hyponatremia: Status: Acute Code(s): E87.1 - Hypo-osmolality and hyponatremia (8) Chronic atrial fibrillation: Status: Acute Code(s): I48.20 - Chronic atrial fibrillation, unspecified (9) On apixaban therapy: Status: Acute Code(s): Z79.01 - residential (current) use of anticoagulants Additional A&P Information Additional A&P Information: Severe sepsis on admission: Positive for leukocytosis, tachycardia, lactic acidosis and acute kidney injury. No infiltrate on chest x-ray. Urinalysis positive for leuk esterase but negative for nitrite with squamous epithelial cell so most likely a contaminated sample. We will repeat a UA. No evidence of colitis on CT scan. Patient has remained afebrile. Patient does have history of C. difficile in the past 4 months. Patient had multiple episodes of diarrhea before she took Imodium and last 1 week. Patient already started on broad-spectrum antibiotic with vancomycin and aztreonam. We will continue antibiotics for next 24 hours. Patient remains afebrile we will start de-escalating. Follow-up blood culture already sent from admission. MRSA swab. Flu swab. Recheck UA. Uncontrolled blood sugars: Diabetes mellitus. Check HbA1c. Most likely patient on presentation had HHS. No osmolality on admission so difficult to confirm. This morning blood sugars a lot better controlled. Continue with IV hydration. Continue with insulin sliding scale every 6 hours as patient is n.p.o. Hyponatremia: Most likely pseudo-hyponatremia because of elevated blood sugars. Last BMP done at 1 AM. Recheck BMP stat. If patient continues to have hyponatremia we will check urine lites, urine osmolality and serum osmolality on sample from admission. For now continue on normal saline at 100 cc/h. Small bowel obstruction: Surgical recommendations appreciated. Continue n.p.o. Continue with NG tube and intermittent suction as per surgical recommendations. Most likely due to uncontrolled blood sugars and hyponatremia. On CT scan no evidence of colitis. Acute kidney injury: Most likely from elevated blood sugars and dehydration in setting of EDGAR inhibitor's and diuretics. Check BMP stat. Continue IV hydration. Medical reconciliation done for nephrotoxic drugs. Atrial fibrillation: At home patient is on Cardizem and Eliquis. We will start patient on IV Lopressor 5 mg every 6 hours as needed for heart rate more than 110 with systolic blood pressure more than 120 mmHg. We will start patient on full dose Lovenox as cannot give Eliquis because of n.p.o. status. SBO to be treated conservatively as per surgical recommendations. Monitor for fluid overload. Full code N.p.o. because of SBO. Lovenox for DVT prophylaxis Attestations Medical Necessity Statement*: Needs continued hospitalization for management of severe sepsis, acute kidney injury, hyponatremia, uncontrolled blood sugars and SBO. Time Spent in Patient Care: Greater than 35 minutes Coding Level of Care Code Acute Laundry Aid for [facility] Diagnoses Severe sepsis A41.9; R65.20 Dehydration E86.0 Uncontrolled blood glucose R73.09 Acute kidney injury N17.9 Diabetes mellitus E11.65; Z79.4 Diabetes mellitus type: type 2 Diabetes mellitus assisted insulin use: with buttermaker continuous churn use Diabetes mellitus complication status: with hyperglycemia Small bowel obstruction K56.609 Hyponatremia E87.1 Chronic atrial fibrillation I48.20 On apixaban therapy Z79.01
[2019-07-18 16:59] LABS: Procalcitonin 0.76 ng/mL (0-0.8)
[2019-07-18 17:20] LABS: Add Urine Microscopic? YES; Bilirubin Urine Neg (NEGATIVE); Blood Urine 2+ (Negative); Glucose Urine UA Norm (Normal); Ketones Urine Negative (Negative); Leukocyte Esterase Urine Trace (Negative); Nitrate Urine Negative (Negative); Protein Urine Neg (Negative); Specific Gravity, Urine 1.015 (1.005-1.030); Urine Appearance Clear (CLEAR); Urine Color Yellow (Yellow); Urobilinogen Urine Norm (Negative); pH Urine 5 (5-7)
[2019-07-18 17:22] LABS: Bacteria Urine 1+; Mucus Urine TRACE; Transitional Epi Cells Urine 0-4 /hpf; WBC Urine 15-25 /hpf (0-5)
[2019-07-18 17:23] LABS: Add Urine Culture? Yes; Coarse Granular Casts Urine 0-4 /lpf; Hyaline Casts Urine 0-4
[2019-07-18 17:28] LABS: Glucose Point of Care 178 mg/dL (70-110)
[2019-07-18] MEDS: enoxaparin 100 mg/mL Syringe SUBCUT (18:41)
[2019-07-18 21:25] LABS: Hemoglobin 13.3 g/dL (11.5-15.3)
[2019-07-18 22:02] LABS: Glucose Point of Care 166 mg/dL (70-110)
[2019-07-18 22:40] LABS: Amphetamines Screen Urine Negative (Negative); Barbiturates Screen Urine Negative (Negative); Benzodiazepines Screen Urine Negative (Negative); Cocaine Screen Urine Negative (Negative); Opiate Screen Urine Negative (Negative); PCP Screen Urine Negative (Negative); THC Screen Urine Negative (Negative)
[2019-07-18 23:26] LABS: Influenza A by IFA Negative (Negative); Influenza B by IFA Negative (Negative)
[2019-07-19] VITALS (11 sets, daily range): BP systolic 92–118; BP diastolic 54–87; PULSE 75–91; RESP 16–22; TEMP 36.5–37.1; O2SAT 94–100
[2019-07-19] MEDS: enoxaparin 100 mg/mL Syringe SUBCUT ×2 (05:22→17:19)
[2019-07-19 05:33] LABS: Glucose Point of Care 163 mg/dL (70-110)
--- NOTE | 2019-07-19 06:38 | PC.NURSE ---
SHIFT SUMMARY PT HAS BEEN ALERT AND ORIENTATED. PT HAS BEEN TURNED PERIODICALLY. PT HAS HAD ADEQUATE URINE OUTPUT. NG TUBE REMAINS IN AND DRAINING. PT IVS REMAIN PATENT. PT COMPLAINED OF HEADACHE AND TYLENOL WAS GIVEN.
--- NOTE | 2019-07-19 09:06 | P.PN_ITS ---
Subjective Subjective: Interval history: Patient overall feels better and continues to pass gas Vitals/I&O/Wt Last Vital Signs Temp 98.7 F 07/19/19 03:26 Pulse 80 07/19/19 07:59 Resp 22 H 07/19/19 06:00 BP 105/69 07/19/19 06:00 Pulse Ox 100 07/19/19 07:59 07/18/19 07/19/19 07/19/19 22:59 06:59 14:59 Intake Total 1100 / 2250 1240 / 3490 Output Total 350 / 750 780 / 1530 Balance 750 / 1500 460 / 1960 Weight last 48 hrs Weight 222 lb 9.6 oz Weight 220 lb 9 oz Weight 250 lb Physical Exam Const: COMMON NORMALS: no apparent distress and oriented x3 GENERAL APPEARANCE: cooperative ORIENTATION/CONSCIOUSNESS: Yes awake, Yes oriented to person, Yes oriented to place and Yes oriented to time HENMT: COMMON NORMALS: normocephalic HEAD & SCALP: normocephalic Eye: COMMON NORMALS: PERRL and no scleral icterus PUPIL: Yes PERRL Neck/C-Spine: GENERAL: Yes other (NGt in place) Lymph: LYMPHATIC: no lymphadenopathy noted Chest: COMMONS NORMALS: inspection of chest normal Resp: COMMON NORMALS: normal respiratory effort Cardio: COMMON NORMALS: no murmurs GI: COMMON NORMALS: soft to palpation; negative for no hepatosplenomegaly INSPECTION: Yes normal to inspection PALPATION: Yes soft, No firm, No tender, No guarding, No rigid and No no hepatosplenomegaly Neuro: COMMON NORMALS: oriented x3 SENSORIUM/ORIENTATION: Yes oriented to person, Yes oriented to place and Yes oriented to time Psych: COMMON NORMALS: mental status grossly normal Skin: COMMON NORMALS: no rashes or lesions noted GENERAL SKIN EXAM: no r ashes or lesions noted Urinary Catheter Management^: Curry: Cath Placed During This Visit: no Data 2 Micro: Micro: Microbiology 07/17/19 20:00 Blood Culture - Pr eliminary Blood Gram positive c occi 07/17/19 17:58 Blood Culture - Pr eliminary Blood NEGATIVE TO BLAISE E A&P Assessment and plan (1) Small bowel obstruction: From surgical standpoint of view as patient continues to pass gas, we will plan to clamp NG tube for 2-hour and then will check residuals if less than 200 and and will plan to DC NG tube. Patient can go to the floor form surgical stand point of view. Thank you for consulting general surgery to participate taking care Status: Acute Code(s): K56.609 - Unspecified intestinal obstruction, unspecified as to partial versus complete obstruction Attestations Medical Necessity Statement*: Medical necessity care is expected to cross 2 midnights Time Spent in Patient Care: less than 15 minutes Coding Level of Care Code Acute Varnish Cooker for Chg Fwd Exam Problem Focused Diagnoses Small bowel obstruction K56.609
[2019-07-19 10:44] LABS: Basophils # 0.1 10^3/uL (0.0-0.1); Basophils % 0.6 %; Eosinophils # 0.1 10^3/uL (0.0-0.8); Hematocrit 40.4 % (37.0-47.0); Hemoglobin 12.5 g/dL (11.5-15.3); Lymphocytes # 2.4 10^3/uL (0.8-4.8); Lymphocytes % 24.7 %; Mean Corpuscular HGB Conc 30.9 g/dL (30.0-36.0); Mean Corpuscular Hemoglobin 30.1 pg (28.0-34.0); Mean Corpuscular Volume 97.3 fL (81-99); Mean Platelet Volume 12.4 fL (7.4-10.4); Monocytes # 0.9 10^3/uL (0.2-0.9); Monocytes % 9.6 %; Neutrophils # 6.1 10^3/uL (1.8-7.7); Neutrophils % 63.6 %; Nucleated Red Blood Cells % 0 %; Platelet Count 156 10^3/cmm (130-400); Red Blood Count 4.15 10^6/uL (4.1-5.3); Red Cell Distribution Width 14.1 % (12.1-15.1); White Blood Count 9.7 10^3/uL (4.0-10.0)
[2019-07-19 10:54] LABS: Alanine Aminotransferase 12 U/L (0-33); Albumin Level 2.5 g/dL (3.5-5.2); Alkaline Phosphatase 82 IU/L (35-105); Aspartate Amino Transferase 13 U/L (0-32); Blood Urea Nitrogen 11 mg/dL (8-23); Calcium 8.7 mg/Dl (8.8-10.2); Carbon Dioxide 26 mmol/L (22-29); Chloride 100 mmol/L (98-107); Globulin 2.1 g/dL (1.3-4.6); Glucose 165 mg/dL (74-106); Sodium 136 mmol/L (136-145); Total Bilirubin 0.3 mg/dL (0.15-1.2); Total Protein 4.6 g/dL (6.6-8.7)
--- NOTE | 2019-07-19 11:00 | PC.NURSE ---
3 mL residual out of NG tube. NG tube removed per doctor's orders. NG tube intact, patient tolerated procedure well. Curry catheter removed per doctor's orders. 7 mL removed from balloon. Curry catheter intact. Patient tolerated procedure well.
[2019-07-19 11:20] LABS: Estmated Average Glucose 372; Hemoglobin A1C 14.6 % (4.0-6.0)
[2019-07-19 13:09] LABS: Glucose Point of Care 186 mg/dL (70-110)
[2019-07-19] MEDS: famotidine 20 mg/2 mL INJ IVP (13:11)
[2019-07-19] MEDS: aztreonam 1,000 MG in sodium chloride 0.9% (plus) 50 ML 100 MG IV (13:11)
--- NOTE | 2019-07-19 15:34 | PM.PN ---
Subjective Subjective: Interval history: No acute events overnight. This morning on evaluation patient is lying comfortably in bed. She states she is passing flatus but has not had a bowel movement. Denies of having any abdominal pain, nausea, headache, dizziness. She states she is feeling a lot better, hungry and states probably she should be out of ICU now. Medications: Reviewed: Yes Vitals/I&O/Wt Last Vital Signs Temp 97.7 F 07/19/19 13:24 Pulse 75 07/19/19 13:24 Resp 17 07/19/19 13:24 BP 110/57 07/19/19 13:24 Pulse Ox 99 07/19/19 13:24 07/19/19 07/19/19 07/19/19 06:59 14:59 22:59 Intake Total 1240 / 3490 1000 / 1000 Output Total 780 / 1530 300 / 300 Balance 460 / 1960 -300 / -300 1000 / 700 Weight last 48 hrs Weight 100.97 kg Weight 100.045 kg Weight 113.398 kg Physical Exam Narrative: EXAM NARRATIVE: General: No acute distress, AO x3, dehydrated HEENT: PERRLA, pupils bilaterally equal and reactive Chest: Normal vesicular breath sounds, no added sounds, equal good air entry bilaterally CVS: S1-S2 regular, no murmurs, no tachycardia, no gallops, no rubs Abdomen: Soft, nontender, no organomegaly, bowel sounds sluggish, obese, mild tenderness in right lower quadrant, NG tube to suction present Neuro: No focal deficits, no facial deformity, AO x3, power 5/5 in all limbs Urinary Catheter Management^: Curry: Cath Placed During This Visit: Yes. Data Micro: Micro: Microbiology 07/18/19 20:15 MRSA Culture - Fin al Nose 07/17/19 20:00 Blood Culture - Pr eliminary Blood Gram positive c occi 07/17/19 17:58 Blood Culture - Pr eliminary Blood NEGATIVE TO BLAISE E A&P Assessment and plan (1) Severe sepsis: Status: Acute Code(s): A41.9 - Sepsis, unspecified organism; R65.20 - Severe sepsis without septic shock (2) Dehydration: Status: Acute Code(s): E86.0 - Dehydration (3) Acute kidney injury: Status: Acute Code(s): N17.9 - Acute kidney failure, unspecified (4) Small bowel obstruction: Status: Acute Code(s): K56.609 - Unspecified intestinal obstruction, unspecified as to partial versus complete obstruction (5) Uncontrolled blood glucose: Status: Acute Code(s): R73.09 - Other abnormal glucose (6) Chronic atrial fibrillation: Status: Acute Code(s): I48.20 - Chronic atrial fibrillation, unspecified (7) On apixaban therapy: Status: Acute Code(s): 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 No infiltrate on chest x-ray. Urinalysis positive for leukesterase but negative for nitrite. No evidence of colitis on CT scan. Patient has remained afebrile. Patient does have history of C. difficile in the past 4 months. Patient had multiple episodes of diarrhea before she took Imodium and last 1 week. Patient already started on broad-spectrum antibiotic with vancomycin and aztreonam. Follow-up blood culture already sent from admission shows 1 out of 4 bottles positive for GPC. We will send stat blood cultures. We will have to continue antibiotics till have blood cultures negative for now. Follow-up urine culture. If negative can discontinue aztreonam. MRSA swab negative. Flu swab negative. Uncontrolled blood sugars: Diabetes mellitus. Check HbA1c. Most likely patient on presentation had HHS. No osmolality on admission so difficult to confirm. Blood sugars better controlled. Continue with IV hydration. Check blood sugars every 6 hourly. Patient is n.p.o. Hyponatremia: Most likely pseudo-hyponatremia because of elevated blood sugars. Sodium this morning 136. Fluid was changed to half NS yesterday afternoon after repeat sodium level was 139 after normal blood sugar. Small bowel obstruction: Resolving Surgical recommendations appreciated. Continue n.p.o. Plan to clamp the NG tube for 2 hours and then look for residuals. If residuals less than 200 and no nausea will discontinue NG tube and advance patient on clear liquid diet. Most likely due to uncontrolled blood sugars and hyponatremia. On CT scan no evidence of colitis. Acute kidney injury: Resolved. Most likely from elevated blood sugars and dehydration in setting of EDGAR inhibitor's and diuretics. Check BMP stat. Continue IV hydration. Medical reconciliation done for nephrotoxic drugs. Atrial fibrillation: At home patient is on Cardizem and Eliquis. We will start patient on IV Lopressor 5 mg every 6 hours as needed for heart rate more than 110 with systolic blood pressure more than 120 mmHg. We will start patient on full dose Lovenox as cannot give Eliquis because of n.p.o. status. SBO to be treated conservatively as per surgical recommendations. Monitor for fluid overload. After switching the diet to liquid diet will wait for 24 more hours before changing the medications orally. Transfer to floors. Full code N.p.o. because of SBO. NG clamping trial for now. 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
[2019-07-19 17:03] LABS: Glucose Point of Care 150 mg/dL (70-110)
[2019-07-19] MEDS: nystatin powder 15 gm Btl 1 APPLIC TOPICAL (17:18)
[2019-07-19 19:37] LABS: Glucose Point of Care 276 mg/dL (70-110)
[2019-07-19] MEDS: acetaminophen 325 mg Tablet 650 MG PO (22:50)
[2019-07-20 00:55] LABS: Glucose Point of Care 201 mg/dL (70-110)
[2019-07-20 01:00] VITALS: BP 102/68; PULSE 84; RESP 18; TEMP 36.9; O2SAT 93
[2019-07-20] MEDS: aztreonam 1,000 MG in sodium chloride 0.9% (plus) 50 ML 50 MG IV ×2 (01:09→12:17)
[2019-07-20] MEDS: famotidine 20 mg/2 mL INJ IVP ×2 (01:09→12:17)
[2019-07-20 05:00] VITALS: BP 108/72; PULSE 85; RESP 18; TEMP 37; O2SAT 94
[2019-07-20 06:21] LABS: Glucose Point of Care 221 mg/dL (70-110)
[2019-07-20 06:25] LABS: Basophils # 0.1 10^3/uL (0.0-0.1); Basophils % 0.7 %; Eosinophils # 0.1 10^3/uL (0.0-0.8); Eosinophils % 0.7 %; Hematocrit 38.8 % (37.0-47.0); Lymphocytes # 2.3 10^3/uL (0.8-4.8); Lymphocytes % 31.1 %; Mean Corpuscular HGB Conc 30.9 g/dL (30.0-36.0); Mean Corpuscular Volume 93.7 fL (81-99); Mean Platelet Volume 12.5 fL (7.4-10.4); Monocytes # 0.7 10^3/uL (0.2-0.9); Neutrophils # 4.2 10^3/uL (1.8-7.7); Neutrophils % 56.8 %; Nucleated Red Blood Cells % 0 %; Platelet Count 144 10^3/cmm (130-400); Red Blood Count 4.14 10^6/uL (4.1-5.3); Red Cell Distribution Width 13.6 % (12.1-15.1); White Blood Count 7.4 10^3/uL (4.0-10.0)
[2019-07-20] MEDS: enoxaparin 100 mg/mL Syringe SUBCUT ×2 (06:29→17:54)
[2019-07-20 06:56] LABS: Alanine Aminotransferase 12 U/L (0-33); Albumin Level 2.7 g/dL (3.5-5.2); Alkaline Phosphatase 90 IU/L (35-105); Anion Gap 11.9 (5-19); Aspartate Amino Transferase 11 U/L (0-32); Blood Urea Nitrogen 6 mg/dL (8-23); Calcium 8.8 mg/Dl (8.8-10.2); Carbon Dioxide 27 mmol/L (22-29); Chloride 98 mmol/L (98-107); Globulin 2.2 g/dL (1.3-4.6); Glucose 235 mg/dL (74-106); Potassium 2.9 mmol/L (3.5-5.1); Sodium 134 mmol/L (136-145); Total Bilirubin 0.3 mg/dL (0.15-1.2); Total Protein 4.9 g/dL (6.6-8.7)
--- NOTE | 2019-07-20 08:15 | PM.PN ---
Subjective Subjective: Interval history: Patient overall feels better and continues to pass gas and having bowel movement, tolerating well p.o. intake Medications: Reviewed: Yes Medication Review Details: Patient was on p.o. vancomycin last 4 months for C. difficile. Vitals/I&O/Wt Last Vital Signs Temp 98.6 F 07/20/19 05:00 Pulse 85 07/20/19 05:00 Resp 18 07/20/19 05:00 BP 108/72 07/20/19 05:00 Pulse Ox 94 07/20/19 05:00 07/19/19 07/20/19 07/20/19 22:59 06:59 14:59 Intake Total 1360 / 1360 50 / 1410 260 / 260 Balance 1360 / 1060 50 / 1110 260 / 260 Weight last 48 hrs Weight 223 lb 11.2 oz Weight 222 lb 9.6 oz Physical Exam Const: COMMON NORMALS: no apparent distress and oriented x3 GENERAL APPEARANCE: cooperative ORIENTATION/CONSCIOUSNESS: Yes awake, Yes oriented to person, Yes oriented to place and Yes oriented to time HENMT: COMMON NORMALS: normocephalic HEAD & SCALP: normocephalic Eye: COMMON NORMALS: PERRL and no scleral icterus PUPIL: Yes PERRL Neck/C-Spine: GENERAL: Yes other (NGt in place) Lymph: LYMPHATIC: no lymphadenopathy noted Chest: COMMONS NORMALS: inspection of chest normal Resp: COMMON NORMALS: normal respiratory effort Cardio: COMMON NORMALS: no murmurs GI: COMMON NORMALS: soft to palpation; negative for no hepatosplenomegaly INSPECTION: Yes normal to inspection PALPATION: Yes soft, No firm, No tender, No guarding, No rigid, No no hepatosplenomegaly and Yes other (Right subcostal scar as well as lower midline scar from previous surgeries/obese) Neuro: COMMON NORMALS: oriented x3 SENSORIUM/ORIENTATION: Yes oriented to person, Yes oriented to place and Yes oriented to time Psych: COMMON NORMALS: mental status grossly normal Skin: COMMON NORMALS: no rashes or lesions noted GENERAL SKIN EXAM: no rashes or lesions noted Urinary Catheter Management^: Curry: Cath Placed During This Visit: no Data Micro: Micro: Microbiology 07/19/19 16:35 Blood Culture - Pr eliminary Blood SPECIMEN [facility] 07/19/19 16:20 Blood Culture - Pr eliminary Blood SPECIMEN [facility] 07/18/19 20:15 MRSA Culture - Fin al Nose A&P Assessment and plan (1) Small bowel obstruction: Advance to soft GI diet Once patient tolerates well she can be discharged from surgical standpoint of view Will defer to hospitalist service for further medical management Thank you for consulting general surgery to participate taking care Status: Acute Code(s): K56.609 - Unspecified intestinal obstruction, unspecified as to partial versus complete obstruction Attestations Medical Necessity Statement*: Per hospitalist's service Time Spent in Patient Care: less than 15 minutes Coding Level of Care Code Acute Youth Corrections Officer for Chg Fwd Exam Problem Focused Diagnoses Small bowel obstruction K56.609
[2019-07-20 08:52] VITALS: BP 128/73; PULSE 75; RESP 18; TEMP 36.6; O2SAT 97
[2019-07-20] MEDS: nystatin powder 15 gm Btl 1 APPLIC TOPICAL ×2 (09:05→17:54)
[2019-07-20] MEDS: potassium chloride premix 40 MEQ/100 ML PREMIX 25 MEQ IV ×2 (10:53→14:28)
[2019-07-20] MEDS: lidocaine 1% INJ 20 mL 5 ML IV ×2 (10:53→14:28)
[2019-07-20 11:07] LABS: Glucose Point of Care 248 mg/dL (70-110)
[2019-07-20 13:00] VITALS: BP 136/85; PULSE 89; RESP 18; TEMP 37
--- NOTE | 2019-07-20 13:59 | PC.SOCIAL ---
Pg 2 of IMM was explained and signed by patient, copy was provided, and form placed in chart. She verbalized understanding and had no questions.
[2019-07-20] MEDS: HYDROcodone-acetaminophen 10-325 mg Tablet 1 TAB PO ×2 (14:33→22:41)
--- NOTE | 2019-07-20 15:07 | PM.PN ---
Subjective Subjective: Interval history: No acute events overnight. Transferred to floors yesterday. Today morning diet advanced to soft as per Sx recs. Had mild nausea but no voiting after eating. States she did well with food but had trouble with milk. This morning on evaluation patient is lying comfortably in bed. She states she is passing flatus but has not had a bowel movement. Denies of having any abdominal pain, nausea, headache, dizziness. Medications: Reviewed: Yes Medication Review Details: Patient was on p.o. vancomycin last 4 months for C. difficile. Vitals/I&O/Wt Last Vital Signs Temp 97.9 F 07/20/19 08:52 Pulse 75 07/20/19 08:52 Resp 18 07/20/19 08:52 BP 128/73 07/20/19 08:52 Pulse Ox 97 07/20/19 08:52 07/20/19 07/20/19 07/20/19 06:59 14:59 22:59 Intake Total 100 / 1460 949.583 / 949.583 Balance 100 / 1160 949.583 / 949.583 Weight last 48 hrs Weight 101.469 kg Weight 100.97 kg Physical Exam Narrative: EXAM NARRATIVE: General: No acute distress, AO x3, dehydrated HEENT: PERRLA, pupils bilaterally equal and reactive Chest: Normal vesicular breath sounds, no added sounds, equal good air entry bilaterally CVS: S1-S2 regular, no murmurs, no tachycardia, no gallops, no rubs Abdomen: Soft, nontender, no organomegaly, bowel sounds sluggish but better, obese. Neuro: No focal deficits, no facial deformity, AO x3, power 5/5 in all limbs Urinary Catheter Management^: Curry: Cath Placed During This Visit: no Data Micro: Micro: Microbiology 07/17/19 20:00 Blood Culture - Pr eliminary Blood Coagulase negat iv staphylococc 07/18/19 14:05 Urine Culture - Pr eliminary Urine,Clean Catch Yeast species 07/19/19 16:35 Blood Culture - Pr eliminary Blood SPECIMEN [facility] 07/19/19 16:20 Blood Culture - Pr eliminary Blood SPECIMEN [facility] 07/18/19 20:15 MRSA Culture - Fin al Nose A&P Assessment and plan (1) Severe sepsis: Status: Acute Code(s): A41.9 - Sepsis, unspecified organism; R65.20 - Severe sepsis without septic shock (2) Dehydration: Status: Acute Code(s): E86.0 - Dehydration (3) Acute kidney injury: In May BUN and creatinine were 14/0.6 Status: Acute Code(s): N17.9 - Acute kidney failure, unspecified (4) Small bowel obstruction: Status: Acute Code(s): K56.609 - Unspecified intestinal obstruction, unspecified as to partial versus complete obstruction (5) Uncontrolled blood glucose: Status: Acute Code(s): R73.09 - Other abnormal glucose (6) Chronic atrial fibrillation: Status: Acute Code(s): I48.20 - Chronic atrial fibrillation, unspecified (7) On apixaban therapy: Near as I can tell it is due to Status: Acute Code(s): Z79.01 - long-term (current) use of anticoagulants Additional A&P Information Additional A&P Information: Severe sepsis on admission: Positive for leukocytosis, tachycardia, lactic acidosis and acute kidney injury. No infiltrate on chest x-ray. Urinalysis positive for leukesterase but negative for nitrite. No evidence of colitis on CT scan. Patient has remained afebrile. Patient does have history of C. difficile in the past 4 months. Patient had multiple episodes of diarrhea before she took Imodium and last 1 week. No more diarrhea now. Patient already started on broad-spectrum antibiotic with vancomycin and aztreonam. Follow-up blood culture already sent from admission shows 1 out of 4 bottles positive for GPC. Will follow Bcx. As per conversation with micro lab most likely contaminant as coag negative staph and only in 1 out of 3 bottles. Ucx only has yeast. Most likely contaminant from fungal groin infection. Will d/c Aztreonam. Day 3 today. MRSA swab negative. Flu swab negative. Uncontrolled blood sugars: Diabetes mellitus. Check HbA1c. Most likely patient on presentation had HHS. No osmolality on admission so difficult to confirm. Blood sugars better controlled. Euvoluemic now. D/c fluids. Will not start home dose of lasix for now. Check blood sugars every 6 hourly. Advancing diet right now. Hyponatremia: Most likely pseudo-hyponatremia because of elevated blood sugars. Sodium this morning stable. Hypokalemia: Potassium 2.9 today. Will give supplementation. Recheck in evening around 5 pm. Small bowel obstruction: Resolving. Most likely due to uncontrolled blood sugars and hyponatremia. Surgical recommendations appreciated. Diet advanced to GI soft. Had mild nausea. Most likely due to fast consumption. Explained patient to eat slowly in small meals.Will retry in lunch if not tolerating will cut back to full liquid. On CT scan no evidence of colitis. Acute kidney injury: Resolved. Most likely from elevated blood sugars and dehydration in setting of EDGAR inhibitor's and diuretics. Check BMP stat. Continue IV hydration. Medical reconciliation done for nephrotoxic drugs. Atrial fibrillation: At home patient is on Cardizem and Eliquis. We will start patient on IV Lopressor 5 mg every 6 hours as needed for heart rate more than 110 with systolic blood pressure more than 120 mmHg. We will start patient on full dose Lovenox as cannot give Eliquis because of advancing diet status. SBO to be treated conservatively as per surgical recommendations. Monitor for fluid overload. Switch orally tomorrow if tolerating well. If continues to do well can d/c tomorrow with home services already arranged. Full code Diet advancement slowly. Lovenox for therapeutic dose Attestations Medical Necessity Statement*: management of SBO. Time Spent in Patient Care: Greater than 35 minutes Coding Level of Care Code Acute Adult Protective Caseworker for jeniffer Hatfield Diagnoses Severe sepsis A41.9; R65.20 Dehydration E86.0 Acute kidney injury N17.9 Small bowel obstruction K56.609 Uncontrolled blood glucose R73.09 Chronic atrial fibrillation I48.20 On apixaban therapy Z79.01
[2019-07-20 15:43] VITALS: BP 136/85; PULSE 89; RESP 18; TEMP 37; O2SAT 93
[2019-07-20 17:01] LABS: Glucose Point of Care 293 mg/dL (70-110)
[2019-07-20 21:00] VITALS: BP 134/65; PULSE 88; RESP 20; TEMP 36.7; O2SAT 97
[2019-07-20 21:22] LABS: Glucose Point of Care 267 mg/dL (70-110)
[2019-07-21] MEDS: famotidine 20 mg/2 mL INJ IVP (00:01)
[2019-07-21] MEDS: aztreonam 1,000 MG in sodium chloride 0.9% (plus) 50 ML 100 MG IV (00:03)
[2019-07-21 01:00] VITALS: BP 119/75; PULSE 70; RESP 18; TEMP 36.7; O2SAT 97
[2019-07-21 01:17] LABS: Glucose Point of Care 239 mg/dL (70-110)
[2019-07-21 05:00] VITALS: BP 115/68; PULSE 72; RESP 18; TEMP 36.4; O2SAT 97
[2019-07-21] MEDS: enoxaparin 100 mg/mL Syringe SUBCUT (05:01)
[2019-07-21 06:19] LABS: Basophils % 0.8 %; Eosinophils # 0.1 10^3/uL (0.0-0.8); Eosinophils % 1.2 %; Hematocrit 39.9 % (37.0-47.0); Hemoglobin 12.2 g/dL (11.5-15.3); Mean Corpuscular HGB Conc 30.6 g/dL (30.0-36.0); Mean Corpuscular Hemoglobin 29.1 pg (28.0-34.0); Mean Corpuscular Volume 95.2 fL (81-99); Mean Platelet Volume 12.7 fL (7.4-10.4); Monocytes # 0.6 10^3/uL (0.2-0.9); Monocytes % 11.4 %; Neutrophils # 2.3 10^3/uL (1.8-7.7); Nucleated Red Blood Cells % 0 %; Platelet Count 143 10^3/cmm (130-400); Red Blood Count 4.19 10^6/uL (4.1-5.3); Red Cell Distribution Width 13.7 % (12.1-15.1)
[2019-07-21 06:33] LABS: Glucose Point of Care 244 mg/dL (70-110)
[2019-07-21 06:41] LABS: Alanine Aminotransferase 20 U/L (0-33); Albumin Level 2.6 g/dL (3.5-5.2); Alkaline Phosphatase 126 IU/L (35-105); Anion Gap 13.6 (5-19); Aspartate Amino Transferase 39 U/L (0-32); Blood Urea Nitrogen 6 mg/dL (8-23); Calcium 8.9 mg/Dl (8.8-10.2); Carbon Dioxide 27 mmol/L (22-29); Chloride 101 mmol/L (98-107); Globulin 2.3 g/dL (1.3-4.6); Glucose 210 mg/dL (74-106); Potassium 3.6 mmol/L (3.5-5.1); Sodium 138 mmol/L (136-145); Total Bilirubin 0.3 mg/dL (0.15-1.2); Total Protein 4.9 g/dL (6.6-8.7)
[2019-07-21 08:01] VITALS: BP 104/70; PULSE 90; RESP 18; TEMP 37.1; O2SAT 97
[2019-07-21 11:03] VITALS: BP 110/60; PULSE 82; RESP 18; TEMP 37.1; O2SAT 93
[2019-07-21] MEDS: nystatin powder 15 gm Btl 1 APPLIC TOPICAL (11:27)
--- NOTE | 2019-07-21 11:52 | P.DS_ITS ---
Discharge Providers Date of Admission: 07/17/19 21:56 Date of Discharge: 07/31/19 Attending Provider at Admission: Kerry Cruz MD Attending Provider at Discharge: Javy Saba MD Primary Care Provider: Elaine Topete Diagnoses at Discharge Discharge Diagnosis (1) Severe sepsis: Status: Acute (2) Dehydration: Status: Acute (3) Acute kidney injury: Status: Acute (4) Small bowel obstruction: Status: Acute (5) Uncontrolled blood glucose: Status: Acute (6) Chronic atrial fibrillation: Status: Acute (7) On apixaban therapy: Status: Acute Reason for Visit Reason for Visit: Reason For Visit: n/v Hospital Course Discharge Summary: 74-year-old female with past medical history of chronic A. fib on Eliquis, COPD, CAD, diabetes mellitus with uncontrolled blood sugars on insulin, GERD, history of ESBL and MRSA infections, recently been on p.o. vancomycin for C. difficile infection 4 months ago presented to the ER on July 18 after having nausea and vomiting for 1 day. Patient on admission was also having low-grade fevers. On admission patient's CT abdomen was suggestive of early SBO and was mildly somnolent with blood sugars more than 600 with pseudohyponatremia, elevated lactate so was admitted to the ICU and was started on empiric broad-spectrum IV antibiotics and was pancultured. Patient on admission was severely dehydrated so was started on IV fluids, was kept n.p.o. because of SBO and was started on NG tube. While being on IV fluids patient's dyselectrolimia, elevated blood sugars and mentation improved. Once the mentation had improved on interview patient stated that patient had diarrhea for 5 days because of it she was feeling sick little weak so she took 4 tablets of Imodium before her constipation started. Patient's SBO was most likely due to elevated blood sugars, hyponatremia, Imodium tablets. Patient eventually had bowel functions so NG tube was removed and was advanced slowly to GI soft which patient has been tolerating well for last 24 hours. Patient during the whole admission remained hemodynamically stable, afebrile with normal white counts. Her blood cultures from admission had 1 out of 4 bottles positive for coagulase- negative staph which was deemed a contaminant. Repeat set of blood cultures was also sent which has been negative up to date. Patient is been discharged in hemodynamically stable condition off antibiotics, back to her baseline mentation and oxygen requirements and has been consulted and educated about diabetic diet, insulin regimen and has been taught how to give insulin to self properly. Patient prior to the admission had in-home and home health services which have been continued. Physical Exam Narrative: EXAM NARRATIVE: General: No acute distress, AO x3, HEENT: PERRLA, pupils bilaterally equal and reactive Chest: Normal vesicular breath sounds, no added sounds, equal good air entry bilaterally CVS: S1-S2 regular, no murmurs, no tachycardia, no gallops, no rubs Abdomen: Soft, nontender, no organomegaly, bowel sounds sluggish but better, obese. Neuro: No focal deficits, no facial deformity, AO x3, power 5/5 in all limbs Urinary Catheter Management^: Curry: Cath Placed During This Visit: no Discharge Data Data Completed and Pending: Completed Studies During Hospitalization Category Date Time Status CT abdomen pelvis w con* [id number] Urge nt Cat Scan 07/17/19 18:16 Completed XR chest 1V jennifer ble [id number] Routine Exams 07/17/19 23:10 Completed XR chest 1V jennifer ble [id number] Routine Exams 07/18/19 00:24 Completed XR chest 1V jennifer ble [id number] Urgent Exams 07/17/19 17:43 Completed Pending at discharge Category Date Time Status Blood Culture Sta t Lab 07/17/19 20:00 Results Blood Culture Sta t Lab 07/19/19 16:35 Results Urine Culture Rou valerie Lab 07/18/19 14:05 Results Labs from last 24 hours 07/21/19 07/21/19 07/21/19 06:26 05:21 05:21 WBC 5.0 RBC 4.19 Hgb 12.2 Hct 39.9 MCV 95.2 MCH 29.1 MCHC 30.6 RDW 13.7 Plt Count 143 MPV 12.7 H Neut % (Auto) 46.0 Lymph % (Auto) 40.0 [place] % (Auto) 11.4 Eos % (Auto) 1.2 Baso % (Auto) 0.8 Neut # (Auto) 2.3 Lymph # (Auto) 2.0 [place] # (Auto) 0.6 Eos # (Auto) 0.1 Baso # (Auto) 0.0 Nucleated RBC % (a uto) 0 Nucleated RBCs # 0.0 Sodium 138 Potassium 3.6 Chloride 101 Carbon Dioxide 27 Anion Gap 13.6 BUN 6 L Creatinine 0.5 Glucose 210 H POC Glucose 244 Calcium 8.9 Total Bilirubin 0.3 AST 39 H ALT 20 Alkaline Phosphata se 126 H Total Protein 4.9 L Albumin 2.6 L Globulin 2.3 07/21/19 07/20/19 07/20/19 01:04 21:14 16:56 WBC RBC Hgb Hct MCV MCH MCHC RDW Plt Count MPV Neut % (Auto) Lymph % (Auto) [place] % (Auto) Eos % (Auto) Baso % (Auto) Neut # (Auto) Lymph # (Auto) [place] # (Auto) Eos # (Auto) Baso # (Auto) Nucleated RBC % (a uto) Nucleated RBCs # Sodium Potassium Chloride Carbon Dioxide Anion Gap BUN Creatinine Glucose POC Glucose 239 267 293 Calcium Total Bilirubin AST ALT Alkaline Phosphata se Total Protein Albumin Globulin Vitals: Last Vital Signs Temp 98.8 F 07/21/19 11:03 Pulse 82 07/21/19 11:03 Resp 18 07/21/19 11:03 BP 110/60 07/21/19 11:03 Pulse Ox 93 07/21/19 11:03 Discharge Plan Discharge Patient Disposition: Home Health Service Condition: Stable Prescriptions: [facility] 100,000 unit/gram Powder 1 applic topical BID 14 Days Qty: 50 RF: 0 Cardizem CD 120 mg capsule,extended release 24hr 120 mg PO DAILY Qty: 60 RF: 0 Lasix 20 mg tablet 20 mg PO DAILY Qty: 30 RF: 0 Continued ropinirole 1 mg Tablet 1 mg PO DAILY RF: 0 Zofran 4 mg Tablet 4 mg PO Q6H PRN (Reason: Nausea) RF: 0 lisinopril 5 mg Tablet 5 mg PO DAILY RF: 0 oxybutynin chloride 5 mg Tablet 5 mg PO BID RF: 0 Prozac 20 mg Capsule 20 mg PO DAILY RF: 0 rosuvastatin 10 mg Tablet 10 mg PO DAILY RF: 0 Eliquis 5 mg Tablet 5 mg PO BID RF: 0 Changed [place] 10-325 mg tablet 1 tab PO Q8H PRN (Reason: Pain) Qty: 0 RF: 0 Discontinued furosemide [Lasix] 40 mg Tablet 40 mg PO DAILY RF: 0 diltiazem HCl 60 mg Tablet 60 mg PO TID RF: 0 Discharge Orders: Discharge Order (Routine); Ordered 07/21/19 Ordered By: Javy Saba Referrals: Stephen Garcia MD [Physician] - 08/20/19 1:30 pm (PLEASE FOLLOW UP WITH DR. GARCIA ON AUGUST 20 2019 AT 1:30PM) Elaine Topete PA [Primary Care Provider] - 07/30/19 11:00 am Patient Instructions: Atrial Fibrillation, Diltiazem (By mouth), Furosemide (By mouth), Nystatin (On the skin), Hyponatremia (GEN), Chronic Obstructive Pulmonary Disease (GEN), COPD Stoplight Activity Restrictions/Additional Instructions: Patient was instructed and taught how to give insulin properly. Patient at present is on GI soft and has been advised to advance to regular diet eventually within next 2 weeks. Patient is advised to follow-up with Dr. Garcia for possible colonoscopy as an outpatient in next 1 month. Discharge Date/Time: 07/21/19 16:00 Discharge Attestations Time Spent in Discharge Care*: greater than 30 min Specific Discharge Activities: Specific discharge activities: educating patient and evaluating patient/reviewing data Status at Discharge: Cognitive status at discharge: cognitively intact , Behavioral status at discharge: cooperative , Functional status at discharge: wheelchair bound Overall status at discharge: patient is back to baseline Quality Metrics Clinical Quality Measures During this hospital stay, did patient experience: None Coding Level of Care Code Acute Jewel Hole Finish Opener for Chg Fwd Diagnoses Severe sepsis A41.9; R65.20 Dehydration E86.0 Acute kidney injury N17.9 Small bowel obstruction K56.609 Uncontrolled blood glucose R73.09 Chronic atrial fibrillation I48.20 On apixaban therapy Z79.01
[2019-07-21 12:19] VITALS: BP 169/80; PULSE 80; RESP 18; TEMP 37.1; O2SAT 93
[2019-07-21 12:32] LABS: Glucose Point of Care 324 mg/dL (70-110)
[2019-07-21 16:13] VITALS: BP 169/80; PULSE 80; RESP 18; TEMP 37.1; O2SAT 93
== END 2019-07-21 16:00 | disposition home health service (06) | DRG 872 ==
LOC: ER 18:58 → ICU 22:14 → MEDSURG 07-19 14:58
PROVIDERS: Family Medicine; Admitting Provider Hospitalist; Emergency Provider Emergency Medicine; PCP Physician Assistant; Visit Provider Student in an Organized Health Care Education/Training Program
DX: A41.9 Sepsis, unspecified organism (principal); K56.609 Unspecified intestinal obstruction, unspecified as to partial versus complete obstruction; N17.9 Acute kidney failure, unspecified; I48.20 Chronic atrial fibrillation, unspecified; R65.20 Severe sepsis without septic shock; I25.10 Atherosclerotic heart disease of native coronary artery without angina pectoris; F17.210 Nicotine dependence, cigarettes, uncomplicated; K21.9 Gastro-esophageal reflux disease without esophagitis; Z86.14 Personal history of Methicillin resistant Staphylococcus aureus infection; E78.5 Hyperlipidemia, unspecified; I10 Essential (primary) hypertension; G25.81 Restless legs syndrome; E66.01 Morbid (severe) obesity due to excess calories; Z68.38 Body mass index [BMI] 38.0-38.9, adult; E86.0 Dehydration; Z79.891 Long term (current) use of opiate analgesic; Z79.01 Long term (current) use of anticoagulants; J44.9 Chronic obstructive pulmonary disease, unspecified; E11.65 Type 2 diabetes mellitus with hyperglycemia; Z79.4 Long term (current) use of insulin
CPT/HCPCS: 12345; 36415; 36416; 36600; 51702; 71045; 74177; 80053; 80307; 81003; 82803; 82962; 83036; 83605; 83735; 83930; 84100; 84145; 85014; 85018; 85025; 85610; 87040; 87086; 87106; 87205; 87641; 87804; 93005; 96360; 96365; 96372; 96374; 96375; 99283; J1650; J1815; J2001; J2405; J3370; J3480; J3490; J7030; J7040; J7050; Q9967; S0030

== ENCOUNTER → 2019-08-05 09:59 | Outpatient (BNVA) | payer MEDICARE, MEDICAID, SELFPAY | PROVIDERS: PCP Physician Assistant; Visit Provider Anesthesiology | DX: M48.061 Spinal stenosis, lumbar region without neurogenic claudication (principal); G25.81 Restless legs syndrome; F17.210 Nicotine dependence, cigarettes, uncomplicated; Z79.891 Long term (current) use of opiate analgesic | CPT/HCPCS: 99214 ==

== ENCOUNTER → 2019-10-01 08:20 | Outpatient (BNVA) | payer MEDICARE, MEDICAID, SELFPAY | PROVIDERS: PCP Physician Assistant; Visit Provider Nurse Practitioner | DX: Z76.89 Persons encountering health services in other specified circumstances (principal) | CPT/HCPCS: 99212 ==

== ENCOUNTER 2020-01-06 13:03 | Emergency (ER) | payer MEDICARE, MEDICAID, SELFPAY ==
[2020-01-06 13:04] VITALS: BP 147/86; PULSE 89; RESP 20; TEMP 36.4; O2SAT 97; BMI 42.0
--- NOTE | 2020-01-06 13:58 | CTR_ITS ---
PROCEDURE INFORMATION: Exam: CT Abdomen And Pelvis With Contrast Exam date and time: 01/06/2020 2:50 PM Age: 74 years old Clinical indication: Abdominal pain; Prior surgery; Surgery type: Appy. Gb. ; Patient HX: Epigastric pain TECHNIQUE: Imaging protocol: Computed tomography of the abdomen and pelvis with intravenous contrast. Radiation optimization: All CT scans at this facility use at least one of these dose optimization techniques: automated exposure control; mA and/or kV adjustment per patient size (includes targeted exams where dose is matched to clinical indication); or iterative reconstruction. Contrast material: OMNI 300; Contrast volume: 95 ml; Contrast route: INTRAVENOUS (IV); COMPARISON: CT abdomen pelvis w con* [id number] 07/17/2019 8:25 PM RADIATION DOSE METRICS: Total DLP (mGy-cm): 1745.12 FINDINGS: Liver: No mass. Gallbladder and bile ducts: Cholecystectomy. Pancreas: No acute findings. No ductal dilation. Spleen: Normal. No splenomegaly. Adrenals: Normal. No mass. Kidneys and ureters: Normal. No hydronephrosis. Stomach and bowel: No acute findings. No obstruction. No mucosal thickening. Colonic diverticulosis. Appendix: Appendectomy. Intraperitoneal space: Unremarkable. No free air. No significant fluid collection. Vasculature: No abdominal aortic aneurysm. Lymph nodes: No significant adenopathy. Bladder: Unremarkable as visualized. Reproductive: Unremarkable as visualized. Bones/joints: Scoliosis, degenerative change. Old lumbar compression fracture. Thoracic hyperostosis. Left femoral internal fixation device partially seen. Soft tissues: No acute findings. CT/CT abdomen pelvis w con* [id number] IMPRESSION: No acute findings. Radiation Dose CTDIVOL = (mGy): DLP = 1745.12 (mGy-cm)
--- NOTE | 2020-01-06 13:58 | XRR_ITS ---
PROCEDURE INFORMATION: Exam: XR Chest, 1 View Exam date and time: 01/06/2020 2:19 PM Age: 74 years old Clinical indication: Type not specified; Patient HX: Lower chest pain for one week TECHNIQUE: Imaging protocol: XR of the chest Views: 1 view. COMPARISON: CR XR chest 1V portable [id number] 07/18/2019 2:59 AM FINDINGS: Lungs: No consolidation. Suboptimal evaluation of the left lung base, limited by rotation. Pleural space: No pleural effusion. No pneumothorax. Heart/Mediastinum: Unremarkable. No cardiomegaly. Bones/joints: No acute findings. XR/XR chest 1V portable [id number] IMPRESSION: No acute findings. A follow up PA and lateral examination is recommended for more complete evaluation when clinically feasible.
--- NOTE | 2020-01-06 14:00 | ECG_ITS ---
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 Measurements Intervals [place] Rate: 84 P: 85 HI: 221 QRS: 17 QRSD: 69 T: 29 QT: 348 QTc: 412 Interpretive Statements SINUS RHYTHM WITH FIRST DEGREE AV BLOCK LOW QRS VOLTAGE IN PRECORDIAL LEADS [QRS DEFLECTION < 1.0 mV IN CHEST LEADS] Compared to ECG 07/17/2019 21:54:32 First degree AV block now present Sinus tachycardia no longer present Myocardial infarct finding no longer present Electronically Signed On 01-06-2020 19:33:29 CDT by Jacob Taylor M.D. [email or web address]
[2020-01-06] MEDS: fentaNYL 50 mcg/mL INJ 2mL IVP (14:14)
[2020-01-06 14:15] LABS: Basophils # 0.1 10^3/uL (0.0-0.1); Basophils % 1.3 %; Eosinophils % 0.5 %; Hematocrit 45.2 % (37.0-47.0); Hemoglobin 13.6 g/dL (11.5-15.3); Lymphocytes # 2.1 10^3/uL (0.8-4.8); Lymphocytes % 24.9 %; Mean Corpuscular HGB Conc 30.1 g/dL (30.0-36.0); Mean Corpuscular Hemoglobin 28.9 pg (28.0-34.0); Mean Corpuscular Volume 96.2 fL (81-99); Monocytes # 0.8 10^3/uL (0.2-0.9); Monocytes % 9.6 %; Neutrophils # 5.4 10^3/uL (1.8-7.7); Neutrophils % 63.1 %; Nucleated Red Blood Cells % 0 %; Platelet Count 208 10^3/cmm (130-400); Red Cell Distribution Width 14.9 % (12.1-15.1); White Blood Count 8.6 10^3/uL (4.0-10.0)
[2020-01-06 14:36] LABS: Alanine Aminotransferase 32 U/L (0-33); Albumin Level 3.3 g/dL (3.5-5.2); Alkaline Phosphatase 139 IU/L (35-105); Aspartate Amino Transferase 23 U/L (0-32); Blood Urea Nitrogen 9 mg/dL (8-23); C Reactive Protein 8.2 mg/L (0.0-4.9); Calcium 9.3 mg/dL (8.5-10.5); Carbon Dioxide 31 mmol/L (22-29); Chloride 97 mmol/L (98-107); Globulin 3.5 g/dL (1.3-4.6); Glucose 241 mg/dL (65-115); Lactate (Lactic Acid level) 1.4 mmol/L (0.5-2.2); Lipase 10 U/L (13-60); Osmolality Calculated 292 mOsm/kg (285-295); Sodium 139 mmol/L (136-145); Total Bilirubin 0.3 mg/dL (0.15-1.2); Total Protein 6.8 g/dL (6.6-8.7)
[2020-01-06 14:37] LABS: Troponin(5th) Baseline 14 ng/L (0-10)
[2020-01-06 15:02] LABS: Add Urine Microscopic? YES; Bilirubin Urine Neg (NEGATIVE); Blood Urine Neg (Negative); Glucose Urine UA 2+ (Normal); Ketones Urine Negative (Negative); Leukocyte Esterase Urine 2+ (Negative); Nitrate Urine Positive (Negative); Protein Urine Neg (Negative); Specific Gravity, Urine 1.015 (1.005-1.030); Urine Appearance Cloudy (CLEAR); Urine Color Yellow (Yellow); Urobilinogen Urine 1 mg/dL (Negative); pH Urine 7 (5-7)
[2020-01-06 15:03] LABS: Add Urine Culture? Yes; Bacteria Urine 4+; Squamous Epithelial Cell Urine 0-4 (0-5); WBC Urine 25-40 /hpf (0-5)
[2020-01-06] MEDS: iohexol 300 mg/mL 100 mL Btl IV (15:15)
[2020-01-06] MEDS: levofloxacin-dextrose 5 % 750 MG/150 ML PREMIX 100 MG IV (15:43)
--- NOTE | 2020-01-06 16:00 | ECG_ITS ---
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 Measurements Intervals [place] Rate: 89 P: 71 IL: 234 QRS: 20 QRSD: 68 T: 26 QT: 350 QTc: 428 Interpretive Statements SINUS RHYTHM WITH FIRST DEGREE AV BLOCK LOW QRS VOLTAGE IN PRECORDIAL LEADS [QRS DEFLECTION < 1.0 mV IN CHEST LEADS] Compared to ECG 01/06/2020 14:38:04 No significant changes Electronically Signed On 01-06-2020 19:34:16 CDT by Jacob Taylor M.D. [email or web address]
[2020-01-06 16:35] LABS: Troponin 5 2HR 15.38 ng/L (0-10); Troponin 5 2HR Delta 1.38 ABS# (0-10)
--- NOTE | 2020-01-06 16:59 | W.ED.ABDPA2 ---
HPI - Abdominal Pain General: Chief Complaint: Abdominal Pain Stated Complaint: epigastric pain Time Seen by Provider: 01/06/20 13:16 Source: patient Mode of arrival: ambulatory Limitations: no limitations History of Present Illness: HPI narrative: 74-year-old female patient presents with epigastric pain that has been home for about a week. The pain radiates to her chest. She denies nausea or vomiting. Denies constipation or diarrhea. Has had a cholecystectomy. No known aggravating or relieving factors. She denies fever. She denies urinary symptoms. MD elicited complaint: abdominal pain Pertinent past history: none Associated Symptoms: Denies chills, dysuria, fever(s), nausea and vomiting Review of Systems General: Reports: 10 or more systems reviewed and unremarkable except in HPI and below Const: Denies: fever(s), chills or body aches Eyes: Denies: change in vision or blurry vision ENMT: Denies: throat pain, enlarged tonsils, odynophagia, hoarseness, mouth pain or swelling of lips/tongue Card: Reports: chest pain; Denies: palpitations, irregular heart rhythm, edema or swelling of feet/ankles Resp: Denies: dyspnea, productive cough or non-productive cough GI: Reports: abdominal pain; Denies: nausea or vomiting : Denies: flank pain, difficulty voiding, dysuria, urinary frequency, urinary urgency or urinary hesitancy Musc: Denies: neck pain, back pain or extremity swelling Skin/Breast: Denies: rash, pruritus or erythema Neuro: Denies: headache(s), numbness in extremities or weakness in extremities Endo: Denies: polyuria, polydipsia or tired all the time FOR[facility] ED PFSH: Medical History C. difficile colitis Chronic atrial fibrillation COPD (chronic obstructive pulmonary disease) Coronary artery disease Current every day smoker Degenerative lumbar spinal stenosis Diabetes mellitus Gastroesophageal reflux disease History of ESBL E. coli infection History of MRSA infection History of small bowel obstruction Medically managed to date HTN (hypertension), malignant Hyperlipidemia Morbid obesity Opioid contract exists Restless leg syndrome Surgical History History of appendectomy History of bladder suspension procedure History of cholecystectomy History of colonoscopy (~2013) History of orthopedic surgery Wrist and left leg History of tubal ligation Family History Other CAD (coronary artery disease) Cancer Social History Smoking and tobacco status: current every day smoker cigarettes Packs smoked per day: 0.5 Alcohol intake: never Caregiver/support person: Yes (Son as well as some home health) Physical Exam Const: COMMON NORMALS: no acute distress, average body habitus, patient oriented x3, no limitations, healthy appearing, alert and well nourished HENMT: COMMON NORMALS: normocephalic, atraumatic and moist oral mucous membranes HEAD & SCALP: normocephalic and atraumatic Eye: COMMON NORMALS: Equal, round and reactive pupils present, EOMs intact bilaterally, conjunctivae normal and no scleral icterus CONJUNCTIVA: Yes conjunctivae normal PUPIL: Yes Equal, round and reactive pupils present Neck/C-Spine: COMMON NORMALS: full ROM, supple, no meningeal signs, no JVD and No carotid bruits Chest: COMMONS NORMALS: normal inspection of the chest and normal palpation of entire chest wall Resp: COMMON NORMALS: normal respiratory effort, No retractions, No use of accessory muscles, clear to auscultation bilaterally and percussion normal AUSCULTATION: clear to auscultation bilaterally PERCUSSION: percussion normal Cardio: COMMON NORMALS: no JVD, regular rate, regular rhythm, S1 normal heart sound present, S2 normal heart sound present, No gallops present (Cardio), No clicks present (Cardio), No murmurs present (Cardio), No rub (Cardio) and Peripheral pulses 2+ throughout RATE: regular rate RHYTHM: regular rhythm HEART SOUNDS: S1 normal heart sound present and S2 normal heart sound present PERIPHERAL PULSES: Peripheral pulses 2+ throughout GI: COMMON NORMALS: Normal to inspection, nondistended, normoactive bowel sounds present, Soft to palpation, non-tender, No hepatosplenomegaly present, no masses and no bruits PALPATION: Yes Soft to palpation and Yes No hepatosplenomegaly present : COMMON NORMALS: Yes no CVA tenderness BLADDER/KIDNEY EXAM: Yes no CVA tenderness Back/Pelvis: COMMON NORMALS: no CVA tenderness Extremity: COMMON NORMALS: normal to inspection, full ROM, capillary refill normal, no calf tenderness and no pedal edema Neuro: COMMON NORMALS: patient oriented x3 SENSORIUM/ORIENTATION: Yes alert MENINGEAL SIGNS: Yes no meningeal signs Skin: COMMON NORMALS: no rashes or lesions noted, no wounds, turgor normal, no jaundice, no petechiae and no mottling GENERAL SKIN EXAM: no rashes or lesions noted and turgor normal Course Reevaluation(s): Reevaluation #1: Discussed her lab and imaging findings with her. Imaging findings negative for acute findings. Labs unremarkable other than UA suggestive of UTI. We will discharge her home on oral antibiotics. She voiced understanding and is in agreement with the plan. Time: 16:59 Vital Signs: Vital signs: Vital Signs Temperature 97.5 F L 01/06/20 13:04 Pulse Rate 72 01/06/20 18:13 Respiratory Rate 18 01/06/20 18:13 Blood Pressure 139/81 01/06/20 18:13 Pulse Oximetry 93 01/06/20 18:13 MDM - Abdominal Pain MDM Narrative: Medical decision making narrative: 74-year-old female patient who presents with abdominal pain. Pain radiates into her chest. Evaluation in the ED was unremarkable other than likely UTI. 2-hour troponin delta was flat. She is discharged home to follow-up with her primary care provider. She is discharged home on oral antibiotics. Medical Records: Attestation: I reviewed the patient's medical records. Lab Data: Attestation: I reviewed the patient's lab results. Labs: Lab Results 01/06/20 01/06/20 01/06/20 Range/Units 14:09 14:09 14:09 WBC 8.6 (4.0-10.0) 10^3/ uL RBC 4.70 (4.1-5.3) 10^6/u L Hgb 13.6 (11.5-15.3) g/dL Hct 45.2 (37.0-47.0) % MCV 96.2 (81-99) fL MCH 28.9 (28.0-34.0) pg MCHC 30.1 (30.0-36.0) g/dL RDW 14.9 (12.1-15.1) % Plt Count 208 (130-400) 10^3/c mm MPV 12.0 H (7.4-10.4) fL Neut % (Auto) 63.1 % Lymph % (Auto) 24.9 % Hendricks % (Auto) 9.6 % Eos % (Auto) 0.5 % Baso % (Auto) 1.3 % Neut # (Auto) 5.4 (1.8-7.7) 10^3/u L Lymph # (Auto) 2.1 (0.8-4.8) 10^3/u L Hendricks # (Auto) 0.8 (0.2-0.9) 10^3/u L Eos # (Auto) 0.0 (0.0-0.8) 10^3/u L Baso # (Auto) 0.1 (0.0-0.1) 10^3/u L Nucleated RBC % (a uto) 0 % Nucleated RBCs # 0.0 /100WBC Sodium 139 (136-145) mmol/L Potassium 4.0 (3.5-5.1) mmol/L Chloride 97 L (98-107) mmol/L Carbon Dioxide 31 H (22-29) mmol/L Anion Gap 15.0 (5-19) BUN 9 (8-23) mg/dL Creatinine 0.4 L (0.5-0.9) mg/dL Glucose 241 H (65-115) mg/dL Calculated Osmolal ity 292 (285-295) mOsm/k g Lactate 1.4 (0.5-2.2) mmol/L Calcium 9.3 (8.5-10.5) mg/dL Total Bilirubin 0.3 (0.15-1.2) mg/dL AST 23 (0-32) U/L ALT 32 (0-33) U/L Alkaline Phosphata se 139 H (35-105) IU/L Troponin T Baselin e (0-10) ng/L Troponin T 120 Min cap[place] (0-10) ng/L Delta Troponin T (0-10) ABS# C-Reactive Protein 8.2 H (0.0-4.9) mg/L Total Protein 6.8 (6.6-8.7) g/dL Albumin 3.3 L (3.5-5.2) g/dL Globulin 3.5 (1.3-4.6) g/dL Lipase 10 L (13-60) U/L Urine Color (Yellow) Urine Appearance (CLEAR) Urine pH (5-7) Ur Specific Gravit y (1.005-1.030) Urine Protein (Negative) Urine Glucose (UA) (Normal) Urine Ketones (Negative) Urine Blood (Negative) Urine Nitrate (Negative) Urine Bilirubin (NEGATIVE) Urine Urobilinogen (Negative) mg/dL Ur Leukocyte Dora ase (Negative) Urine RBC (0-2) /hpf Urine WBC (0-5) /hpf Ur Squamous Epith Cells (0-5) Amorphous Sediment Urine Bacteria (NONE) 01/06/20 01/06/20 01/06/20 Range/Units 14:09 14:38 16:07 WBC (4.0-10.0) 10^3/ uL RBC (4.1-5.3) 10^6/u L Hgb (11.5-15.3) g/dL Hct (37.0-47.0) % MCV (81-99) fL MCH (28.0-34.0) pg MCHC (30.0-36.0) g/dL RDW (12.1-15.1) % Plt Count (130-400) 10^3/c mm MPV (7.4-10.4) fL Neut % (Auto) % Lymph % (Auto) % Hendricks % (Auto) % Eos % (Auto) % Baso % (Auto) % Neut # (Auto) (1.8-7.7) 10^3/u L Lymph # (Auto) (0.8-4.8) 10^3/u L Hendricks # (Auto) (0.2-0.9) 10^3/u L Eos # (Auto) (0.0-0.8) 10^3/u L Baso # (Auto) (0.0-0.1) 10^3/u L Nucleated RBC % (a uto) % Nucleated RBCs # /100WBC Sodium (136-145) mmol/L Potassium (3.5-5.1) mmol/L Chloride (98-107) mmol/L Carbon Dioxide (22-29) mmol/L Anion Gap (5-19) BUN (8-23) mg/dL Creatinine (0.5-0.9) mg/dL Glucose (65-115) mg/dL Calculated Osmolal ity (285-295) mOsm/k g Lactate (0.5-2.2) mmol/L Calcium (8.5-10.5) mg/dL Total Bilirubin (0.15-1.2) mg/dL AST (0-32) U/L ALT (0-33) U/L Alkaline Phosphata se (35-105) IU/L Troponin T Baselin e 14 H (0-10) ng/L Troponin T 120 Min cap[place] 15.38 H (0-10) ng/L Delta Troponin T 1.38 (0-10) ABS# C-Reactive Protein (0.0-4.9) mg/L Total Protein (6.6-8.7) g/dL Albumin (3.5-5.2) g/dL Globulin (1.3-4.6) g/dL Lipase (13-60) U/L Urine Color Yellow (Yellow) Urine Appearance Cloudy (CLEAR) Urine pH 7 (5-7) Ur Specific Gravit y 1.015 (1.005-1.030) Urine Protein Neg (Negative) Urine Glucose (UA) 2+ (Normal) Urine Ketones Negative (Negative) Urine Blood Neg (Negative) Urine Nitrate Positive H (Negative) Urine Bilirubin Neg (NEGATIVE) Urine Urobilinogen 1 H (Negative) mg/dL Ur Leukocyte Dora ase 2+ H (Negative) Urine RBC None (0-2) /hpf Urine WBC 25-40 H (0-5) /hpf Ur Squamous Epith Cells 0-4 H (0-5) Amorphous Sediment Not Reportable Urine Bacteria 4+ H (NONE) Imaging Data ^: CXR: Radiologist's impression: [address] [address] XRay Report Signed Patient: Purvi Sparks #: [id number] : 3Acct#:[id number] Age/Sex: 74 / FADM Date: 01/06/20 Loc: ERRoom/Bed: Attending Dr: Ordering Provider/Ordering MD: Jov[place] [facility] [place] Service: 01/06/20 Procedure(s): XR chest 1V portable [id number] Accession Number(s): [id number] Report Number: [id number] PROCEDURE INFORMATION: Exam: XR Chest, 1 View Exam date and time: 01/06/2020 2:19 PM Age: 74 years old Clinical indication: Type not specified; Patient HX: Lower chest pain for one week TECHNIQUE: Imaging protocol: XR of the chest Views: 1 view. COMPARISON: CR XR chest 1V portable [id number] 07/18/2019 2:59 AM FINDINGS: Lungs: No consolidation. Suboptimal evaluation of the left lung base, limited by rotation. Pleural space: No pleural effusion. No pneumothorax. Heart/Mediastinum: Unremarkable. No cardiomegaly. Bones/joints: No acute findings. XR/XR chest 1V portable [id number] IMPRESSION: No acute findings. A follow up PA and lateral examination is recommended for more complete evaluation when clinically feasible. Dictated By:Fletcher Mckeon MD Signed By:Fletcher Mckeon MDSigned Date/Time:01/06/20 144 DD/ 144 CT Abd/Pel: Radiologist's impression: [place] [address] CT Scan Report Signed Patient: Purvi Sparks #: [id number] : 3Acct#:[id number] Age/Sex: 74 / FADM Date: 01/06/20 Loc: ERRoom/Bed: Attending Dr: Ordering Provider/Ordering MD: Jovita Mcgrath [place], [facility] [place] of Service: 01/06/20 Procedure(s): CT abdomen pelvis w con* [id number] Accession Number(s): [id number] Report Number: [id number] PROCEDURE INFORMATION: Exam: CT Abdomen And Pelvis With Contrast Exam date and time: 01/06/2020 2:50 PM Age: 74 years old Clinical indication: Abdominal pain; Prior surgery; Surgery type: Appy. Gb. ; Patient HX: Epigastric pain TECHNIQUE: Imaging protocol: Computed tomography of the abdomen and pelvis with intravenous contrast. Radiation optimization: All CT scans at this facility use at least one of these dose optimization techniques: automated exposure control; mA and/or kV adjustment per patient size (includes targeted exams where dose is matched to clinical indication); or iterative reconstruction. Contrast material: OMNI 300; Contrast volume: 95 ml; Contrast route: INTRAVENOUS (IV); COMPARISON: CT abdomen pelvis w con* [id number] 07/17/2019 8:25 PM RADIATION DOSE METRICS: Total DLP (mGy-cm): 1745.12 FINDINGS: Liver: No mass. Gallbladder and bile ducts: Cholecystectomy. Pancreas: No acute findings. No ductal dilation. Spleen: Normal. No splenomegaly. Adrenals: Normal. No mass. Kidneys and ureters: Normal. No hydronephrosis. Stomach and bowel: No acute findings. No obstruction. No mucosal thickening. Colonic diverticulosis. Appendix: Appendectomy. Intraperitoneal space: Unremarkable. No free air. No significant fluid collection. Vasculature: No abdominal aortic aneurysm. Lymph nodes: No significant adenopathy. Bladder: Unremarkable as visualized. Reproductive: Unremarkable as visualized. Bones/joints: Scoliosis, degenerative change. Old lumbar compression fracture. Thoracic hyperostosis. Left femoral internal fixation device partially seen. Soft tissues: No acute findings. CT/CT abdomen pelvis w con* [id number] IMPRESSION: No acute findings. Radiation Dose CTDIVOL = (mGy): DLP = 1745.12 (mGy-cm) Dictated By:Fletchre Mckeon MD Signed By:Fletcher Mckeonigned Date/Time:01/06/201528 DD/ EKG Data ^: EKG 1: Attestation: I personally reviewed and interpreted this EKG as follows: EKG interpretation date: 01/06/20 EKG interpretation time: 14:38 Prior EKG tracings: not available for review Interpretation: Normal sinus rhythm with a first-degree AV block. Heart rate [address] changes. Normal axis. EKG 2: Attestation: I personally reviewed and interpreted this EKG as follows: EKG interpretation date: 01/06/20 EKG interpretation time: 15:52 Prior EKG tracings: available for review Interpretation: Sinus rhythm with first-degree AV block. Heart rate [address] changes. Normal axis. Unchanged from earlier today. Discharge Plan Discharge Patient Disposition: Home, Self-Care Clinical Impression: Acute cystitis Qualifiers: Hematuria presence: without hematuria Qualified Code(s): N30.00 - Acute cystitis without hematuria Condition: Stable Prescriptions: New nitrofurantoin macrocrystal 100 mg capsule 100 mg PO BID 7 Days Qty: 14 RF: 0 Continued diltiazem HCl [Cartia XT] 120 mg capsule,extended release 24hr 120 mg PO QDAY RF: 0 hydrocodone-acetaminophen 10-325 mg tablet 1 tab PO TID PRN (Reason: pain) 30 Days Qty: 90 RF: 0 Hold Instructions: Home Medication placed on hold at Doctor's office ropinirole 1 mg Tablet 1 mg PO DAILY RF: 0 ondansetron HCl [Zofran] 4 mg Tablet 4 mg PO Q6H PRN (Reason: Nausea) RF: 0 lisinopril 5 mg Tablet 5 mg PO DAILY RF: 0 oxybutynin chloride 5 mg Tablet 5 mg PO BID RF: 0 fluoxetine [Prozac] 20 mg Capsule 20 mg PO DAILY RF: 0 rosuvastatin 10 mg Tablet 10 mg PO DAILY RF: 0 Eliquis 5 mg Tablet 5 mg PO BID RF: 0 furosemide [Lasix] 20 mg tablet 20 mg PO DAILY Qty: 30 RF: 0 acetaminophen 500 mg Tablet 500 mg PO Q6H PRN (Reason: Pain) RF: 0 potassium chloride 20 mEq tablet,ER particles/crystals 20 meq PO BID RF: 0 nystatin 100,000 unit/gram cream See Rx Instructions .ROUTE .COMPLEX RF: 0 Stool Softener 100 mg Tablet 100 mg PO DAILY RF: 0 Humalog KwikPen Insulin 100 unit/mL insulin pen See Rx Instructions .ROUTE .COMPLEX RF: 0 Symbicort 160-4.5 mcg/actuation HFA aerosol inhaler See Rx Instructions .ROUTE .COMPLEX RF: 0 Tresiba FlexTouch U-200 200 unit/mL (3 mL) insulin pen See Rx Instructions .ROUTE .COMPLEX RF: 0 Discharge Orders: Discharge Order (Routine); Ordered 01/06/20 Ordered By: Jovita Mcgrath Referrals: Elaine Topete PA [Primary Care Provider] - 4-7 days Patient Instructions: Urinary Tract Infection - Women Activity Restrictions/Additional Instructions: Return for any new or worsening symptoms. Follow-up with your primary care provider within 1 week. Take the medication as prescribed. Discharge Date/Time: 01/06/20 19:26 Coding Level of Care Code ED Mechanical Engineering Advisor for Gema Hatfield
[2020-01-06 18:13] VITALS: BP 139/81; PULSE 72; RESP 18; O2SAT 93
--- NOTE | 2020-01-09 18:39 | PC.NURSE ---
Pt called and notified of urine culture results being positive for E.Coli ESBL. Pt requested prescription called into [facility] pharmacy. Prescription for Bactrim 1 tab PO BID for 10 days was called into [facility]. Pt called and notified and instructed to have BMP drawn in 5 days by PCP.
== END 2020-01-06 19:26 | disposition home or self-care (01) ==
PROVIDERS: Emergency Provider Family Medicine; PCP Physician Assistant
DX: N30.00 Acute cystitis without hematuria (principal); Z79.01 Long term (current) use of anticoagulants; Z79.4 Long term (current) use of insulin; I48.20 Chronic atrial fibrillation, unspecified; J44.9 Chronic obstructive pulmonary disease, unspecified; I25.10 Atherosclerotic heart disease of native coronary artery without angina pectoris; E11.9 Type 2 diabetes mellitus without complications; I10 Essential (primary) hypertension; E78.5 Hyperlipidemia, unspecified; F17.210 Nicotine dependence, cigarettes, uncomplicated
CPT/HCPCS: 12345; 36415; 71045; 74177; 80053; 81001; 83605; 83690; 84484; 85025; 86140; 87077; 87086; 87186; 93005; 96365; 96375; 99282; 99284; J1956; J3010; Q9967

== ENCOUNTER → 2020-01-13 10:46 | Outpatient (BNVA) | payer MEDICARE, MEDICAID, SELFPAY | PROVIDERS: PCP Physician Assistant; Visit Provider Anesthesiology | DX: M48.061 Spinal stenosis, lumbar region without neurogenic claudication (principal); G25.81 Restless legs syndrome; F17.210 Nicotine dependence, cigarettes, uncomplicated; Z79.891 Long term (current) use of opiate analgesic; Z71.6 Tobacco abuse counseling | CPT/HCPCS: 99214 ==

== ENCOUNTER → 2020-04-29 10:18 | Outpatient (BNVA) | payer MEDICARE, MEDICAID, SELFPAY | PROVIDERS: PCP Physician Assistant; Visit Provider Anesthesiology | DX: M48.061 Spinal stenosis, lumbar region without neurogenic claudication (principal); F17.210 Nicotine dependence, cigarettes, uncomplicated; Z79.891 Long term (current) use of opiate analgesic; Z71.6 Tobacco abuse counseling | CPT/HCPCS: 99213; 99214 ==

== ENCOUNTER → 2020-06-22 10:00 | Outpatient (BNVA) | payer MEDICARE, MEDICAID, SELFPAY | PROVIDERS: PCP Physician Assistant; Visit Provider Nurse Practitioner | DX: M54.5 Low back pain (principal); M48.061 Spinal stenosis, lumbar region without neurogenic claudication; F17.210 Nicotine dependence, cigarettes, uncomplicated; Z79.891 Long term (current) use of opiate analgesic | CPT/HCPCS: 99213 ==

== ENCOUNTER 2020-07-20 17:08 | Emergency (ER) | payer MEDICARE, MEDICAID, SELFPAY ==
[2020-07-20 17:14] VITALS: BP 103/70; PULSE 111; RESP 16; TEMP 36.4; O2SAT 99; BMI 42.9
--- NOTE | 2020-07-20 17:31 | PC.NURSE ---
Read and agree with triage assessment.
--- NOTE | 2020-07-20 17:35 | ECG_ITS ---
[facility] Test Date: 2020-07-20 Pat Name: Purvi Sparks Department: Room: Gender: Female Haul Driver: : 1945 Requested By: Alex Trinidad Order Number: [id number] Nia MD: Leonel Rodriguez M.D. Measurements Intervals [place] Rate: 110 P: 5 OR: 187 QRS: 22 QRSD: 76 T: 41 QT: 318 QTc: 431 Interpretive Statements SINUS TACHYCARDIA LOW QRS VOLTAGE IN PRECORDIAL LEADS [QRS DEFLECTION < 1.0 mV IN CHEST LEADS] ABNORMAL RHYTHM ECG Compared to ECG 01/06/2020 15:52:29 Sinus rhythm no longer present First degree AV block no longer present Electronically Signed On 07-20-2020 21:38:36 ARCHEOLOGY FACULTY MEMBER by Leonel Rodriguez M.D. [id number]
--- NOTE | 2020-07-20 17:35 | XR_ITS ---
WS: [id number] Portable AP upright chest, 07/20/2020 Clinical Data: chest pain Comparison: Portable chest, 01/06/2020. Findings: No nodules, masses or effusions are seen. The heart is normal. The pulmonary vascularity is not increased. No pneumonia or pneumothorax is seen. The aortic arch and descending aorta show minim al calcification and tortuosity. XR/XR chest 1V portable [id number] Impression: Atherosclerosis.
--- NOTE | 2020-07-20 17:46 | W.ED.CHESTPA ---
Documented by User: Alex Ball DO 07/21/20 09:31 HPI - Chest Pain General: Chief Complaint: Chest Pain Stated Complaint: CHEST PAIN Time Seen by Provider: 07/20/20 17:09 History of Present Illness: HPI narrative: 75-year-old female presents emergency room complaining of chest pain that began earlier today while she was at rest. She lives at home she is pretty much sedentary when she does get up and get around it is always in a wheelchair with the assist for transfers. She is morbidly obese but actually has lost August the last few months. Chest pain has resolved surgery did not her left shoulder earlier. MD complaint: chest pain Onset (ago): hour(s) Timing of current episode: episodic Prior episodes: Yes Onset: during rest Pain location: left chest Pain radiation: left shoulder Severity: mild Quality: tightness and heaviness Relieving factors: nothing Exacerbating factors: nothing Associated symptoms: Deny abdominal pain, diaphoresis, dyspnea, fever(s), leg edema, nausea, palpitations, sense of impending doom, syncope or vomiting Treatment prior to arrival: none Review of Systems Const: Denies: fever(s) or diaphoresis ENMT: Denies: throat pain, ear or mastoid pain, nasal discharge or nasal congestion Card: Denies: palpitations or syncope Resp: Denies: dyspnea GI: Denies: abdominal pain, nausea or vomiting : Denies: flank pain, difficulty voiding, dysuria, urinary frequency or urinary urgency Skin/Breast: Denies: rash or pruritus PFSH ED PFSH: Medical History C. difficile colitis Chronic atrial fibrillation COPD (chronic obstructive pulmonary disease) Coronary artery disease Current every day smoker Degenerative lumbar spinal stenosis Diabetes mellitus Gastroesophageal reflux disease History of ESBL E. coli infection History of MRSA infection History of small bowel obstruction Medically managed to date HTN (hypertension), malignant Hyperlipidemia Morbid obesity Opioid contract exists Restless leg syndrome Surgical History History of appendectomy History of bladder suspension procedure History of cholecystectomy History of colonoscopy (~2013) History of orthopedic surgery Wrist and left leg History of tubal ligation Family History Other CAD (coronary artery disease) Cancer Social History Smoking and tobacco status: current every day smoker cigarettes Packs smoked per day: 0.5 Alcohol intake: never Caregiver/support person: Yes (Son as well as some home health) History of recent travel: No Physical Exam Const: COMMON NORMALS: no acute distress GENERAL APPEARANCE: cooperative and comfortable ORIENTATION/CONSCIOUSNESS: Yes awake, Yes oriented to person, Yes oriented to place and Yes oriented to time HENMT: COMMON NORMALS: normocephalic, atraumatic and hearing grossly normal bilaterally HEAD & SCALP: normocephalic and atraumatic Neck/C-Spine: COMMON NORMALS: no JVD Resp: COMMON NORMALS: normal respiratory effort, No retractions, No use of accessory muscles and clear to auscultation bilaterally AUSCULTATION: clear to auscultation bilaterally Cardio: COMMON NORMALS: no JVD, regular rate, regular rhythm and No murmurs present (Cardio) RATE: regular rate RHYTHM: regular rhythm GI: COMMON NORMALS: Soft to palpation and No hepatosplenomegaly present AUSCULTATION: Yes normoactive bowel sounds PALPATION: Yes Soft to palpation, No Tenderness to palpation present (GI), No Guarding due to palpation present (GI) and Yes No hepatosplenomegaly present Extremity: COMMON NORMALS: normal to inspection, capillary refill normal, no clubbing, cyanosis or edema, no calf tenderness and no pedal edema Neuro: SENSORIUM/ORIENTATION: Yes oriented to person, Yes oriented to place and Yes oriented to time Skin: COMMON NORMALS: no rashes or lesions noted GENERAL SKIN EXAM: no rashes or lesions noted Course Vital Signs: Vital signs: Vital Signs Temperature 97.6 F 07/20/20 17:14 Pulse Rate 78 07/20/20 20:14 Respiratory Rate 16 07/20/20 22:55 Blood Pressure 137/62 07/20/20 22:55 Pulse Oximetry 99 07/20/20 22:55 MDM - Chest Pain MDM Narrative: Medical decision making narrative: Care turned over to Dr. Nielsen at change of shift, see his notes for diagnosis and disposition. Lab Data: Labs: Lab Results 07/20/20 07/20/20 07/20/20 Range/Units 16:53 16:53 16:53 WBC 14.9 H (4.0-10.0) 10^3/ uL RBC 4.62 (4.1-5.3) 10^6/u L Hgb 14.5 (11.5-15.3) g/dL Hct 45.2 (37.0-47.0) % MCV 97.8 (81-99) fL MCH 31.4 (28.0-34.0) pg MCHC 32.1 (30.0-36.0) g/dL RDW 12.9 (12.1-15.1) % Plt Count 249 (130-400) 10^3/c mm MPV 13.1 H (7.4-10.4) fL Neut % (Auto) 63.7 % Lymph % (Auto) 26.4 % [place] % (Auto) 7.9 % Eos % (Auto) 0.3 % Baso % (Auto) 0.8 % Neut # (Auto) 9.46 H (1.8-7.7) 10^3/u L Lymph # (Auto) 3.9 (0.8-4.8) 10^3/u L [place] # (Auto) 1.2 H (0.2-0.9) 10^3/u L Eos # (Auto) 0.1 (0.0-0.8) 10^3/u L Baso # (Auto) 0.1 (0.0-0.1) 10^3/u L Nucleated RBC % (a uto) 0 % Nucleated RBCs # 0.0 /100WBC D-Dimer 0.40 (0-0.59) ug/mIFE U Sodium 128 L (136-145) mmol/L Potassium 4.9 (3.5-5.1) mmol/L Chloride 89 L (98-107) mmol/L Carbon Dioxide 29 (22-29) mmol/L Anion Gap 14.9 (5-19) BUN 17 (8-23) mg/dL Creatinine 0.6 (0.5-0.9) mg/dL GFR Calculation Not Reportable Glucose 492 H (65-115) mg/dL Calculated Osmolal ity 289 (285-295) mOsm/k g Lactate (0.5-2.2) mmol/L Calcium 9.9 (8.5-10.5) mg/dL Total Bilirubin 0.4 (0.15-1.2) mg/dL AST 14 (0-32) U/L ALT 14 (0-33) U/L Alkaline Phosphata se 164 H (35-105) IU/L Troponin T Baselin e (0-10) ng/L Troponin T 120 Min [place] (0-10) ng/L Delta Troponin T (0-10) ABS# Total Protein 6.9 (6.6-8.7) g/dL Albumin 3.8 (3.5-5.2) g/dL Globulin 3.1 (1.3-4.6) g/dL 07/20/20 07/20/20 07/20/20 Range/Units 16:53 19:16 19:16 WBC (4.0-10.0) 10^3/ uL RBC (4.1-5.3) 10^6/u L Hgb (11.5-15.3) g/dL Hct (37.0-47.0) % MCV (81-99) fL MCH (28.0-34.0) pg MCHC (30.0-36.0) g/dL RDW (12.1-15.1) % Plt Count (130-400) 10^3/c mm MPV (7.4-10.4) fL Neut % (Auto) % Lymph % (Auto) % [place] % (Auto) % Eos % (Auto) % Baso % (Auto) % Neut # (Auto) (1.8-7.7) 10^3/u L Lymph # (Auto) (0.8-4.8) 10^3/u L [place] # (Auto) (0.2-0.9) 10^3/u L Eos # (Auto) (0.0-0.8) 10^3/u L Baso # (Auto) (0.0-0.1) 10^3/u L Nucleated RBC % (a uto) % Nucleated RBCs # /100WBC D-Dimer (0-0.59) ug/mIFE U Sodium (136-145) mmol/L Potassium (3.5-5.1) mmol/L Chloride (98-107) mmol/L Carbon Dioxide (22-29) mmol/L Anion Gap (5-19) BUN (8-23) mg/dL Creatinine (0.5-0.9) mg/dL GFR Calculation Glucose (65-115) mg/dL Calculated Osmolal ity (285-295) mOsm/k g Lactate 2.4 H (0.5-2.2) mmol/L Calcium (8.5-10.5) mg/dL Total Bilirubin (0.15-1.2) mg/dL AST (0-32) U/L ALT (0-33) U/L Alkaline Phosphata se (35-105) IU/L Troponin T Baselin e 22 H (0-10) ng/L Troponin T 120 Min [place] 20.72 H (0-10) ng/L Delta Troponin T -1.28 L (0-10) ABS# Total Protein (6.6-8.7) g/dL Albumin (3.5-5.2) g/dL Globulin (1.3-4.6) g/dL Discharge Plan Discharge Patient Disposition: Home Clinical Impression: Chest pain Qualifiers: Chest pain type: unspecified Qualified Code(s): R07.9 - Chest pain, unspecified Condition: Stable Prescriptions: No Action diltiazem HCl [Cartia XT] 120 mg capsule,extended release 24hr 120 mg PO DAILY RF: 0 hydrocodone-acetaminophen 10-325 mg tablet 1 tab PO TID PRN (Reason: pain) 30 Days Qty: 90 RF: 0 Hold Instructions: Home Medication placed on hold at Doctor's office ropinirole 1 mg Tablet 1 mg PO DAILY RF: 0 ondansetron HCl [Zofran] 4 mg Tablet 4 mg PO Q6H PRN (Reason: Nausea) RF: 0 lisinopril 5 mg Tablet 5 mg PO DAILY RF: 0 oxybutynin chloride 5 mg Tablet 5 mg PO BID RF: 0 fluoxetine [Prozac] 20 mg Capsule 20 mg PO DAILY RF: 0 rosuvastatin 10 mg Tablet 10 mg PO DAILY RF: 0 Eliquis 5 mg Tablet 5 mg PO BID RF: 0 furosemide [Lasix] 20 mg tablet 20 mg PO DAILY Qty: 30 RF: 0 acetaminophen 500 mg Tablet 500 mg PO Q6H PRN (Reason: Pain) RF: 0 potassium chloride 20 mEq tablet,ER particles/crystals 20 meq PO BID RF: 0 nystatin 100,000 unit/gram cream See Rx Instructions .ROUTE .COMPLEX RF: 0 docusate sodium [Stool Softener] 100 mg Tablet 100 mg PO DAILY RF: 0 insulin lispro [Humalog KwikPen Insulin] 100 unit/mL insulin pen See Rx Instructions .ROUTE .COMPLEX RF: 0 budesonide-formoterol [Symbicort] 160-4.5 mcg/actuation HFA aerosol inhaler See Rx Instructions .ROUTE .COMPLEX RF: 0 Tresiba FlexTouch U-200 200 unit/mL (3 mL) insulin pen See Rx Instructions .ROUTE .COMPLEX RF: 0 Discharge Orders: Discharge ED (Routine); Ordered 07/20/20 Ordered By: Luna Nielsen Referrals: Elaine Topete PA [Primary Care Provider] - Discharge Diet: Advance as tolerated Discharge Activity: Resume usual activity Patient Instructions: Chest Pain (ED) Coding Level of Care Code ED Bulb Packer for Chg Fwd Exam Comprehensive Documented by User: Luna Nielsen MD 07/20/20 22:02 HPI - Chest Pain General: Chief Complaint: Chest Pain Stated Complaint: CHEST PAIN Time Seen by Provider: 07/20/20 17:09 [facility] ED PFSH: Medical History C. difficile colitis Chronic atrial fibrillation COPD (chronic obstructive pulmonary disease) Coronary artery disease Current every day smoker Degenerative lumbar spinal stenosis Diabetes mellitus Gastroesophageal reflux disease History of ESBL E. coli infection History of MRSA infection History of small bowel obstruction Medically managed to date HTN (hypertension), malignant Hyperlipidemia Morbid obesity Opioid contract exists Restless leg syndrome Surgical History History of appendectomy History of bladder suspension procedure History of cholecystectomy History of colonoscopy (~2013) History of orthopedic surgery Wrist and left leg History of tubal ligation Family History Other CAD (coronary artery disease) Cancer Social History Smoking and tobacco status: current every day smoker cigarettes Packs smoked per day: 0.5 Alcohol intake: never Caregiver/support person: Yes (Son as well as some home health) History of recent travel: No Course Vital Signs: Vital signs: Vital Signs Temperature 97.6 F 07/20/20 17:14 Pulse Rate 78 07/20/20 20:14 Respiratory Rate 16 07/20/20 22:55 Blood Pressure 137/62 07/20/20 22:55 Pulse Oximetry 99 07/20/20 22:55 MDM - Chest Pain MDM Narrative: Medical decision making narrative: Patient presents here with chest pain that is atypical in nature. Patient's D-dimer and second troponin here negative. She is requesting discharge she states she feels much improved would like to go home. Patient is well-appearing here and is stable for discharge. She is to follow-up with PCP in 2 to 4 days return to the ER if worsening. Lab Data: Labs: Lab Results 07/20/20 07/20/20 07/20/20 Range/Units 16:53 16:53 16:53 WBC 14.9 H (4.0-10.0) 10^3/ uL RBC 4.62 (4.1-5.3) 10^6/u L Hgb 14.5 (11.5-15.3) g/dL Hct 45.2 (37.0-47.0) % MCV 97.8 (81-99) fL MCH 31.4 (28.0-34.0) pg MCHC 32.1 (30.0-36.0) g/dL RDW 12.9 (12.1-15.1) % Plt Count 249 (130-400) 10^3/c mm MPV 13.1 H (7.4-10.4) fL Neut % (Auto) 63.7 % Lymph % (Auto) 26.4 % [place] % (Auto) 7.9 % Eos % (Auto) 0.3 % Baso % (Auto) 0.8 % Neut # (Auto) 9.46 H (1.8-7.7) 10^3/u L Lymph # (Auto) 3.9 (0.8-4.8) 10^3/u L [place] # (Auto) 1.2 H (0.2-0.9) 10^3/u L Eos # (Auto) 0.1 (0.0-0.8) 10^3/u L Baso # (Auto) 0.1 (0.0-0.1) 10^3/u L Nucleated RBC % (a uto) 0 % Nucleated RBCs # 0.0 /100WBC D-Dimer 0.40 (0-0.59) ug/mIFE U Sodium 128 L (136-145) mmol/L Potassium 4.9 (3.5-5.1) mmol/L Chloride 89 L (98-107) mmol/L Carbon Dioxide 29 (22-29) mmol/L Anion Gap 14.9 (5-19) BUN 17 (8-23) mg/dL Creatinine 0.6 (0.5-0.9) mg/dL GFR Calculation Not Reportable Glucose 492 H (65-115) mg/dL Calculated Osmolal ity 289 (285-295) mOsm/k g Lactate (0.5-2.2) mmol/L Calcium 9.9 (8.5-10.5) mg/dL Total Bilirubin 0.4 (0.15-1.2) mg/dL AST 14 (0-32) U/L ALT 14 (0-33) U/L Alkaline Phosphata se 164 H (35-105) IU/L Troponin T Baselin e (0-10) ng/L Troponin T 120 Min [place] (0-10) ng/L Delta Troponin T (0-10) ABS# Total Protein 6.9 (6.6-8.7) g/dL Albumin 3.8 (3.5-5.2) g/dL Globulin 3.1 (1.3-4.6) g/dL 07/20/20 07/20/20 07/20/20 Range/Units 16:53 19:16 19:16 WBC (4.0-10.0) 10^3/ uL RBC (4.1-5.3) 10^6/u L Hgb (11.5-15.3) g/dL Hct (37.0-47.0) % MCV (81-99) fL MCH (28.0-34.0) pg MCHC (30.0-36.0) g/dL RDW (12.1-15.1) % Plt Count (130-400) 10^3/c mm MPV (7.4-10.4) fL Neut % (Auto) % Lymph % (Auto) % [place] % (Auto) % Eos % (Auto) % Baso % (Auto) % Neut # (Auto) (1.8-7.7) 10^3/u L Lymph # (Auto) (0.8-4.8) 10^3/u L [place] # (Auto) (0.2-0.9) 10^3/u L Eos # (Auto) (0.0-0.8) 10^3/u L Baso # (Auto) (0.0-0.1) 10^3/u L Nucleated RBC % (a uto) % Nucleated RBCs # /100WBC D-Dimer (0-0.59) ug/mIFE U Sodium (136-145) mmol/L Potassium (3.5-5.1) mmol/L Chloride (98-107) mmol/L Carbon Dioxide (22-29) mmol/L Anion Gap (5-19) BUN (8-23) mg/dL Creatinine (0.5-0.9) mg/dL GFR Calculation Glucose (65-115) mg/dL Calculated Osmolal ity (285-295) mOsm/k g Lactate 2.4 H (0.5-2.2) mmol/L Calcium (8.5-10.5) mg/dL Total Bilirubin (0.15-1.2) mg/dL AST (0-32) U/L ALT (0-33) U/L Alkaline Phosphata se (35-105) IU/L Troponin T Baselin e 22 H (0-10) ng/L Troponin T 120 Min [place] 20.72 H (0-10) ng/L Delta Troponin T -1.28 L (0-10) ABS# Total Protein (6.6-8.7) g/dL Albumin (3.5-5.2) g/dL Globulin (1.3-4.6) g/dL EKG Data^: EKG 1: Attestation: I personally reviewed and interpreted this EKG as follows: EKG interpretation date: 07/20/20 EKG interpretation time: 18:29 Interpretation: sinus tach hr [address] or t wave abnormalities qrs 78 qtc 391 Discharge Plan Discharge Patient Disposition: Home Clinical Impression: Chest pain Qualifiers: Chest pain type: unspecified Qualified Code(s): R07.9 - Chest pain, unspecified Condition: Stable Prescriptions: No Action diltiazem HCl [Cartia XT] 120 mg capsule,extended release 24hr 120 mg PO DAILY RF: 0 hydrocodone-acetaminophen 10-325 mg tablet 1 tab PO TID PRN (Reason: pain) 30 Days Qty: 90 RF: 0 Hold Instructions: Home Medication placed on hold at Doctor's office ropinirole 1 mg Tablet 1 mg PO DAILY RF: 0 ondansetron HCl [Zofran] 4 mg Tablet 4 mg PO Q6H PRN (Reason: Nausea) RF: 0 lisinopril 5 mg Tablet 5 mg PO DAILY RF: 0 oxybutynin chloride 5 mg Tablet 5 mg PO BID RF: 0 fluoxetine [Prozac] 20 mg Capsule 20 mg PO DAILY RF: 0 rosuvastatin 10 mg Tablet 10 mg PO DAILY RF: 0 Eliquis 5 mg Tablet 5 mg PO BID RF: 0 furosemide [Lasix] 20 mg tablet 20 mg PO DAILY Qty: 30 RF: 0 acetaminophen 500 mg Tablet 500 mg PO Q6H PRN (Reason: Pain) RF: 0 potassium chloride 20 mEq tablet,ER particles/crystals 20 meq PO BID RF: 0 nystatin 100,000 unit/gram cream See Rx Instructions .ROUTE .COMPLEX RF: 0 docusate sodium [Stool Softener] 100 mg Tablet 100 mg PO DAILY RF: 0 insulin lispro [Humalog KwikPen Insulin] 100 unit/mL insulin pen See Rx Instructions .ROUTE .COMPLEX RF: 0 budesonide-formoterol [Symbicort] 160-4.5 mcg/actuation HFA aerosol inhaler See Rx Instructions .ROUTE .COMPLEX RF: 0 Tresiba FlexTouch U-200 200 unit/mL (3 mL) insulin pen See Rx Instructions .ROUTE .COMPLEX RF: 0 Discharge Orders: Discharge ED (Routine); Ordered 07/20/20 Ordered By: Luna Nielsen Referrals: Elaine Topete PA [Primary Care Provider] - Discharge Diet: Advance as tolerated Discharge Activity: Resume usual activity Patient Instructions: Chest Pain (ED) Coding Level of Care Code ED Bulb Packer for Chg Fwd Exam Comprehensive
--- NOTE | 2020-07-20 17:51 | PC.NURSE ---
Read and agree with assessment
--- NOTE | 2020-07-20 17:54 | PC.PHAR ---
PT STATES SHE HAS A NURSE THAT MANAGES HER MEDICATIONS BUT IS UNSURE OF THE NURSES NAME OR WHAT COMPANY NURSE WORKS FOR. PT FILLS MEDICATIONS AT [email or web address]. OBTAINED MED LIST FROM PHARMACY.
[2020-07-20 18:15] LABS: Basophils # 0.1 10^3/uL (0.0-0.1); Basophils % 0.8 %; Eosinophils # 0.1 10^3/uL (0.0-0.8); Eosinophils % 0.3 %; Hematocrit 45.2 % (37.0-47.0); Hemoglobin 14.5 g/dL (11.5-15.3); Lymphocytes # 3.9 10^3/uL (0.8-4.8); Lymphocytes % 26.4 %; Mean Corpuscular HGB Conc 32.1 g/dL (30.0-36.0); Mean Corpuscular Hemoglobin 31.4 pg (28.0-34.0); Mean Corpuscular Volume 97.8 fL (81-99); Mean Platelet Volume 13.1 fL (7.4-10.4); Monocytes # 1.2 10^3/uL (0.2-0.9); Monocytes % 7.9 %; Neutrophils # 9.46 10^3/uL (1.8-7.7); Neutrophils % 63.7 %; Nucleated Red Blood Cells % 0 %; Platelet Count 249 10^3/cmm (130-400); Red Blood Count 4.62 10^6/uL (4.1-5.3); Red Cell Distribution Width 12.9 % (12.1-15.1); White Blood Count 14.9 10^3/uL (4.0-10.0)
[2020-07-20 18:27] LABS: Alanine Aminotransferase 14 U/L (0-33); Albumin Level 3.8 g/dL (3.5-5.2); Alkaline Phosphatase 164 IU/L (35-105); Blood Urea Nitrogen 17 mg/dL (8-23); Calcium 9.9 mg/dL (8.5-10.5); Carbon Dioxide 29 mmol/L (22-29); Chloride 89 mmol/L (98-107); Creatinine Clr Calc Pharmacy 72.6822; Globulin 3.1 g/dL (1.3-4.6); Glucose 492 mg/dL (65-115); Osmolality Calculated 289 mOsm/kg (285-295); Sodium 128 mmol/L (136-145); Total Bilirubin 0.4 mg/dL (0.15-1.2); Total Protein 6.9 g/dL (6.6-8.7)
[2020-07-20 18:29] LABS: Troponin(5th) Baseline 22 ng/L (0-10)
[2020-07-20 18:40] LABS: Anion Gap 14.9 (5-19); Aspartate Amino Transferase 14 U/L (0-32); Potassium 4.9 mmol/L (3.5-5.1)
[2020-07-20] MEDS: sodium chloride 0.9% 500 ML 999 ML IV (18:48)
[2020-07-20 18:59] VITALS: BP 188/125; PULSE 104; RESP 18; O2SAT 100
[2020-07-20 19:01] LABS: Slide Review Slide Review Perform
[2020-07-20 19:16] VITALS: RESP 18; O2SAT 97
[2020-07-20] MEDS: HYDROmorphone 1 mg/mL INJ 1 mL 0.5 MG IVP (19:16)
--- NOTE | 2020-07-20 19:35 | ECG_ITS ---
[facility] Test Date: 2020-07-20 Pat Name: Purvi Sparks Department: Room: Gender: Female Brand Manager: : [id number] Requested By: Alex Trinidad Order Number: [id number] Nia MD: Leonel Rodriguez M.D. Measurements Intervals [place] Rate: 109 P: 12 NV: 204 QRS: 2 QRSD: 78 T: 38 QT: 327 QTc: 442 Interpretive Statements SINUS TACHYCARDIA WITH OCCASIONAL SUPRAVENTRICULAR PREMATURE COMPLEXES LOW QRS VOLTAGE IN PRECORDIAL LEADS [QRS DEFLECTION < 1.0 mV IN CHEST LEADS] POSSIBLE INFERIOR MYOCARDIAL INFARCTION , PROBABLY OLD [30 ms Q WAVE IN II/aVF] ABNORMAL RHYTHM ECG Compared to ECG 07/20/2020 17:17:08 Myocardial infarct finding now present Electronically Signed On 07-20-2020 21:50:47 EPIC BEACON ANALYST by Leonel Rodriguez M.D. [id number]
[2020-07-20 19:45] LABS: Lactate (Lactic Acid level) 2.4 mmol/L (0.5-2.2)
[2020-07-20 19:47] LABS: Troponin 5 2HR 20.72 ng/L (0-10)
[2020-07-20 19:48] LABS: Troponin 5 2HR Delta -1.28 ABS# (0-10)
[2020-07-20 20:14] VITALS: BP 117/59; PULSE 78; RESP 16; O2SAT 98
[2020-07-20 22:55] VITALS: BP 137/62; RESP 16; O2SAT 99
== END 2020-07-20 22:57 | disposition home or self-care (01) ==
PROVIDERS: Family Medicine; Emergency Provider Emergency Medicine; PCP Physician Assistant
DX: R07.9 Chest pain, unspecified (principal); Z79.01 Long term (current) use of anticoagulants; Z79.4 Long term (current) use of insulin; I48.20 Chronic atrial fibrillation, unspecified; J44.9 Chronic obstructive pulmonary disease, unspecified; I25.10 Atherosclerotic heart disease of native coronary artery without angina pectoris; E11.9 Type 2 diabetes mellitus without complications; I10 Essential (primary) hypertension; E78.5 Hyperlipidemia, unspecified; F17.210 Nicotine dependence, cigarettes, uncomplicated
CPT/HCPCS: 12345; 36415; 71045; 80053; 83605; 84484; 85025; 85378; 93005; 96374; 99283; 99284; J1170; J7040

== ENCOUNTER 2020-08-11 01:58 | Observation (INO) | payer MEDICARE, MEDICAID, SELFPAY ==
[2020-08-11] VITALS (12 sets, daily range): BP systolic 100–122; BP diastolic 59–81; PULSE 75–108; RESP 17–20; TEMP 36.4–36.9; O2SAT 89–99; BMI 38.2
--- NOTE | 2020-08-11 01:58 | CTR_ITS ---
PROCEDURE INFORMATION: Exam: CT Angiography Head With Contrast Exam date and time: 08/11/2020 2:09 AM Age: 75 years old Clinical indication: Speech disturbance; Dysphasia; Patient HX: Sudden onset of garbled speech. Last known well time @ approx. 2345. ; Additional info: CVA TECHNIQUE: Imaging protocol: Computed tomography angiography of the head with intravenous contrast. 3D rendering (Not supervised by radiologist): MIP and/or 3D reconstructed images were created by the technologist. Radiation optimization: All CT scans at this facility use at least one of these dose optimization techniques: automated exposure control; mA and/or kV adjustment per patient size (includes targeted exams where dose is matched to clinical indication); or iterative reconstruction. Contrast material: VISI 320; Contrast volume: 95 ml; Contrast route: INTRAVENOUS (IV); COMPARISON: CT head wo con* [id number] 08/11/2020 1:47 AM RADIATION DOSE METRICS: Total DLP (mGy-cm): 1546.76 FINDINGS: ANTERIOR CIRCULATION: Right internal carotid artery: Mild atheromatous change right internal carotid artery. Right middle cerebral artery: Unremarkable. No occlusion or significant stenosis. No aneurysm. Right anterior cerebral artery: Unremarkable. No occlusion or significant stenosis. No aneurysm. Left internal carotid artery: Mild atheromatous change left internal carotid artery. Left middle cerebral artery: Unremarkable. No occlusion or significant stenosis. No aneurysm. Left anterior cerebral artery: Unremarkable. No occlusion or significant stenosis. No aneurysm. POSTERIOR CIRCULATION: Right vertebral artery: Unremarkable. No occlusion or significant stenosis. No aneurysm. Left vertebral artery: Unremarkable. No occlusion or significant stenosis. No aneurysm. Basilar artery: Unremarkable. No occlusion or significant stenosis. No aneurysm. Right posterior cerebral artery: Unremarkable. No occlusion or significant stenosis. No aneurysm. Left posterior cerebral artery: Unremarkable. No occlusion or significant stenosis. No aneurysm. Brain: No definite mass, mass effect, or midline shift. Cerebral ventricles: No ventriculomegaly. Bones/joints: No acute findings. Soft tissues: Unremarkable. IMPRESSION: No large vessel stenosis or occlusion. PROCEDURE INFORMATION: Exam: CT Angiography Neck With Contrast Exam date and time: 08/11/2020 2:09 AM Age: 75 years old Clinical indication: Speech disturbance; Dysphasia; Patient HX: Sudden onset of garbled speech. Last known well time @ approx. 0198. ; Additional info: CVA TECHNIQUE: Imaging protocol: Computed tomography angiography of the neck with intravenous contrast. 3D rendering (Not supervised by radiologist): MIP and/or 3D reconstructed images were created by the technologist. Radiation optimization: All CT scans at this facility use at least one of these dose optimization techniques: automated exposure control; mA and/or kV adjustment per patient size (includes targeted exams where dose is matched to clinical indication); or iterative reconstruction. Contrast material: VISI 320; Contrast volume: 95 ml; Contrast route: INTRAVENOUS (IV); COMPARISON: CT head wo con* [id number] 08/11/2020 1:47 AM RADIATION DOSE METRICS: Total DLP (mGy-cm): 1546.76 FINDINGS: Right common carotid artery: No stenosis. No dissection or occlusion. Right internal carotid artery: Mild atheromatous change proximal right internal carotid artery. Right external carotid artery: Mild atheromatous change proximal right external carotid artery. Right vertebral artery: No stenosis. No dissection or occlusion. Left common carotid artery: No stenosis. No dissection or occlusion. Left internal carotid artery: Mild atheromatous change proximal left internal carotid artery. Left external carotid artery: Mild atheromatous change proximal left external carotid artery. Left vertebral artery: No stenosis. No dissection or occlusion. Paranasal sinuses: Retention cyst left maxillary sinus. Bones/joints: No acute fracture. Soft tissues: Normal. No significant soft tissue swelling. CT/CT angio headneck* [id number] IMPRESSION: No stenosis or occlusion. REFERENCES: NASCET CRITERIA. The degree of internal carotid artery stenosis is based on NASCET criteria. Normal is no stenosis. Mild is less than 50% stenosis. Moderate is 50-69% stenosis. Severe is 70% to 99% stenosis. Total occlusion is no detectable patent lumen. Radiation Dose CTDIVOL = (mGy): DLP = 1546.76~1546.76 (mGy-cm)
--- NOTE | 2020-08-11 01:59 | ECG_ITS ---
[facility] Test Date: 2020-08-11 Pat Name: Purvi Sparks Department: Room: 258 Gender: Female Rn Emergency Room: : 1945 Requested By: Luna Nielsen Order Number: [id number] Nia MD: Leonel Rodriguez M.D. Measurements Intervals [place] Rate: 91 P: WI: QRS: 4 QRSD: 78 T: 37 QT: 327 QTc: 404 Interpretive Statements Sinus rhythm with a borderline first-degree AV block LOW QRS VOLTAGE IN PRECORDIAL LEADS [QRS DEFLECTION < 1.0 mV IN CHEST LEADS] POSSIBLE INFERIOR MYOCARDIAL INFARCTION , PROBABLY OLD [30 ms Q WAVE IN II/aVF] ABNORMAL RHYTHM ECG Compared to ECG 07/20/2020 18:29:52 Supraventricular rhythm now present Sinus tachycardia no longer present Myocardial infarct finding still present Electronically Signed On 08-11-2020 20:02:38 BOTTOM LINER by Leonel Rodriguez M.D. [id number]
--- NOTE | 2020-08-11 01:59 | CTR_ITS ---
PROCEDURE INFORMATION: Exam: CT Head Without Contrast Exam date and time: 08/11/2020 2:09 AM Age: 75 years old Clinical indication: Speech disturbance; Dysphasia; Patient HX: Sudden onset of garbled speech. Last known well time @ approx. 2345. ; Additional info: Symptoms of acute stroke TECHNIQUE: Imaging protocol: Computed tomography of the head without contrast. Radiation optimization: All CT scans at this facility use at least one of these dose optimization techniques: automated exposure control; mA and/or kV adjustment per patient size (includes targeted exams where dose is matched to clinical indication); or iterative reconstruction. Other technique: STROKE PROTOCOL was implemented. 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 No findings of intracranial hemorrhage. Cerebral ventricles: No ventriculomegaly. Bones/joints: No acute findings. Paranasal sinuses: Mild ethmoid air cell mucosal thickening. Mastoid air cells: Visualized mastoid air cells are well aerated. Soft tissues: Unremarkable. Nasal cavity: Pneumatized left middle nasal turbinate. CT/CT head wo con* [id number] IMPRESSION: No acute intracranial abnormality. ASSESSMENT: ASPECTS ([place] Stroke Program Early CT Score) is 10. Radiation Dose CTDIVOL = (mGy): DLP = 690.97 (mGy-cm)
[2020-08-11] MEDS: iodixanol 320 mg/mL 100mL Btl IV (02:10)
--- NOTE | 2020-08-11 02:30 | ECG_ITS ---
[facility] Test Date: 2020-08-11 Pat Name: Purvi Sparks Department: Room: 258 Gender: Female Mill Laborer: : 1945 Requested By: Luna Nielsen Order Number: [id number] Nia MD: Leonel Rodriguez M.D. Measurements Intervals [place] Rate: 96 P: 11 TX: 214 QRS: 15 QRSD: 95 T: 44 QT: 335 QTc: 424 Interpretive Statements SINUS RHYTHM WITH FIRST DEGREE AV BLOCK LOW QRS VOLTAGE IN PRECORDIAL LEADS [QRS DEFLECTION < 1.0 mV IN CHEST LEADS] PROBABLE INFERIOR MYOCARDIAL INFARCTION , PROBABLY OLD [35 ms Q WAVE IN II/aVF] Compared to ECG 07/20/2020 18:29:52 First degree AV block now present Sinus tachycardia no longer present Myocardial infarct finding still present Electronically Signed On 08-11-2020 20:17:29 PHOTO FINISHER by Leonel Rodriguez M.D. [id number]
--- NOTE | 2020-08-11 02:31 | W.ED.NEUROSD ---
HPI - Neuro Symptoms/Deficit General: Chief Complaint: Neuro Symptoms/Deficit Stated Complaint: STROKE Time Seen by Provider: 08/11/20 01:58 Source: patient and EMS Mode of arrival: EMS Limitations: no limitations History of Present Illness: HPI Narrative: 75-year-old female is brought in by EMS for slurred speech. Patient's family last saw her normal 1135 when to check on her 1 and states that she was severely slurring her words. Patient states she has had a sore throat and took NyQuil. Patient's symptoms have improved but she still does have some slurred speech each but not near as severe her family. I am able to understand her.. She denies any other symptoms. She had no weakness. Patient is on Eliquis. Denies any fevers. Associated symptoms: Deny chest pain, headache(s), nausea or vomiting Review of Systems Const: Denies: fever(s), chills, body aches or change in appetite Eyes: Denies: blurry vision or eye discomfort ENMT: Denies: throat pain or dental pain Card: Denies: chest pain Resp: Denies: dyspnea GI: Denies: abdominal pain, nausea, vomiting or diarrhea : Denies: dysuria Musc: Denies: neck pain or back pain Skin/Breast: Denies: rash Neuro: Reports: Slurred speech present; Denies: headache(s) Psych: Denies: depression Ramsey/Lymph: Denies: easy bruising All/Imm: Denies: urticaria PFSH ED PFSH: Medical History (Updated 08/11/20 @ 03:54 by Luna Nielsen MD) C. difficile colitis Chronic atrial fibrillation COPD (chronic obstructive pulmonary disease) Coronary artery disease Current every day smoker Degenerative lumbar spinal stenosis Diabetes mellitus Gastroesophageal reflux disease History of ESBL E. coli infection History of MRSA infection History of small bowel obstruction Medically managed to date HTN (hypertension), malignant Hyperlipidemia Morbid obesity Opioid contract exists Restless leg syndrome Surgical History History of appendectomy History of bladder suspension procedure History of cholecystectomy History of colonoscopy (~2013) History of orthopedic surgery Wrist and left leg History of tubal ligation Family History Other CAD (coronary artery disease) Cancer Social History Smoking and tobacco status: current every day smoker cigarettes Packs smoked per day: 0.5 Alcohol intake: never Caregiver/support person: Yes (Son as well as some home health) History of recent travel: No NIH stroke score NIHSS: Level Of Consciousness - 1a: 0 Level Of Consciousness Questions - 1b: Both Correct Level Of Consciousness Commands - 1c: Both Correct Best Gaze - 2: Normal Visual Rea - 3: No Visual Loss Facial Palsy - 4: Normal Motor Arm Right - 5: No Drift Motor Arm Left - 5: No Drift Motor Leg Right - 6: No Drift Motor Leg Left - 6: No Drift Limb Ataxia - 7: Absent Sensory - 8: Normal Best Language - 9: Mild/Moderate Aphasia Dysarthia - 10: Mild/Moderate Dysarthia Extinction And Inattention - 11: 0 Score: Total Score: 2 Physical Exam Const: COMMON NORMALS: no acute distress, patient oriented x3 and healthy appearing HENMT: COMMON NORMALS: normocephalic and atraumatic HEAD & SCALP: normocephalic and atraumatic Eye: COMMON NORMALS: Equal, round and reactive pupils present and EOMs intact bilaterally PUPIL: Yes Equal, round and reactive pupils present Neck/C-Spine: COMMON NORMALS: full ROM and supple Chest: COMMONS NORMALS: normal inspection of the chest and normal palpation of entire chest wall Resp: COMMON NORMALS: normal respiratory effort, No retractions, No use of accessory muscles and clear to auscultation bilaterally AUSCULTATION: clear to auscultation bilaterally Cardio: COMMON NORMALS: regular rate, regular rhythm and No murmurs present (Cardio) RATE: regular rate RHYTHM: regular rhythm GI: COMMON NORMALS: Normal to inspection, nondistended, normoactive bowel sounds present, Soft to palpation, non-tender and no masses PALPATION: Yes Soft to palpation Extremity: COMMON NORMALS: normal to inspection and full ROM Neuro: COMMON NORMALS: patient oriented x3, moves all extremities and no focal motor deficits CRANIAL NERVES: Yes CN normal except as noted COORDINATION/BALANCE: kflchr-lz-[id number] test normal SPEECH: abnormal speech (slightly slurred) GAIT: Yes Unable to assess gait (bed bound) MOTOR EXAM: Pronator motor function not present COORDINATION: giofrq-fj-qrdu test normal Psych: COMMON NORMALS: mental status grossly normal, Normal thought process present and cooperative THOUGHT PROCESS: Normal thought process present Skin: COMMON NORMALS: no rashes or lesions noted and no wounds GENERAL SKIN EXAM: no rashes or lesions noted Course Vital Signs: Vital signs: Vital Signs Temperature 97.5 F L 08/11/20 02:00 Pulse Rate 94 08/11/20 04:15 Respiratory Rate 18 08/11/20 04:08 Blood Pressure 100/59 08/11/20 03:36 Pulse Oximetry 94 08/11/20 04:08 MDM - Neuro Symptoms/Deficit MDM Narrative: Medical decision making narrative: Patient presents here with a possible CVA. Patient slurred speech here is improved and she is not a TPA candidate as she is on Eliquis. Her CT here is normal. I spoke to hospitalist and will admit. Patient is been stable while in the ER. Lab Data: Labs: Lab Results 08/11/20 08/11/20 08/11/20 Range/Units 02:20 02:34 02:34 WBC 11.8 H (4.0-10.0) 10^3/ uL RBC 4.57 (4.1-5.3) 10^6/u L Hgb 14.5 (11.5-15.3) g/dL Hct 44.5 (37.0-47.0) % MCV 97.4 (81-99) fL MCH 31.7 (28.0-34.0) pg MCHC 32.6 (30.0-36.0) g/dL RDW 13.3 (12.1-15.1) % Plt Count 219 (130-400) 10^3/c mm MPV 12.8 H (7.4-10.4) fL Neut % (Auto) 54.7 % Lymph % (Auto) 31.6 % [place] % (Auto) 10.7 % Eos % (Auto) 0.5 % Baso % (Auto) 0.8 % Neut # (Auto) 6.46 (1.8-7.7) 10^3/u L Lymph # (Auto) 3.7 (0.8-4.8) 10^3/u L [place] # (Auto) 1.3 H (0.2-0.9) 10^3/u L Eos # (Auto) 0.1 (0.0-0.8) 10^3/u L Baso # (Auto) 0.1 (0.0-0.1) 10^3/u L Nucleated RBC % (a uto) 0 % Nucleated RBCs # 0.0 /100WBC PT 16.00 H (12.1-14.9) SECO NDS INR 1.24 H (0.8-1.2) APTT 32.7 (23.9-36.7) SECO NDS Sodium (136-145) mmol/L Potassium (3.5-5.1) mmol/L Chloride (98-107) mmol/L Carbon Dioxide (22-29) mmol/L Anion Gap (5-19) BUN (8-23) mg/dL Creatinine (0.5-0.9) mg/dL GFR Calculation Glucose (65-115) mg/dL POC Glucose 355 H (70-110) mg/dL Calculated Osmolal ity (285-295) mOsm/k g Calcium (8.5-10.5) mg/dL Total Bilirubin (0.15-1.2) mg/dL AST (0-32) U/L ALT (0-33) U/L Alkaline Phosphata se (35-105) IU/L Total Protein (6.6-8.7) g/dL Albumin (3.5-5.2) g/dL Globulin (1.3-4.6) g/dL 02// Range/Units 02:34 WBC (4.0-10.0) 10^3/ uL RBC (4.1-5.3) 10^6/u L Hgb (11.5-15.3) g/dL Hct (37.0-47.0) % MCV (81-99) fL MCH (28.0-34.0) pg MCHC (30.0-36.0) g/dL RDW (12.1-15.1) % Plt Count (130-400) 10^3/c mm MPV (7.4-10.4) fL Neut % (Auto) % Lymph % (Auto) % [place] % (Auto) % Eos % (Auto) % Baso % (Auto) % Neut # (Auto) (1.8-7.7) 10^3/u L Lymph # (Auto) (0.8-4.8) 10^3/u L [place] # (Auto) (0.2-0.9) 10^3/u L Eos # (Auto) (0.0-0.8) 10^3/u L Baso # (Auto) (0.0-0.1) 10^3/u L Nucleated RBC % (a uto) % Nucleated RBCs # /100WBC PT (12.1-14.9) SECO NDS INR (0.8-1.2) APTT (23.9-36.7) SECO NDS Sodium 127 L (136-145) mmol/L Potassium 5.3 H (3.5-5.1) mmol/L Chloride 89 L (98-107) mmol/L Carbon Dioxide 26 (22-29) mmol/L Anion Gap 17.3 (5-19) BUN 31 H (8-23) mg/dL Creatinine 0.7 (0.5-0.9) mg/dL GFR Calculation Not Reportable Glucose 342 H (65-115) mg/dL POC Glucose (70-110) mg/dL Calculated Osmolal ity 284 L (285-295) mOsm/k g Calcium 10.0 (8.5-10.5) mg/dL Total Bilirubin 0.2 (0.15-1.2) mg/dL AST 16 (0-32) U/L ALT 15 (0-33) U/L Alkaline Phosphata se 177 H (35-105) IU/L Total Protein 7.1 (6.6-8.7) g/dL Albumin 3.5 (3.5-5.2) g/dL Globulin 3.6 (1.3-4.6) g/dL Imaging Data^: CT Head: My impression: [facility] [address] [place] [address] CT Scan Report Signed Patient: Purvi Sparks Unit #: [id number] : 1945 Age/Sex: 75 / F ADM Date: 08/11/20 Loc: ER Room/Bed: Attending Dr: Ordering Provider/Ordering MD: Luna Nielsen MD Date of Service: 08/11/20 Procedure(s): CT head wo con* [id number] Accession Number(s): [id number] Report Number: [id number] PROCEDURE INFORMATION: Exam: CT Head Without Contrast Exam date and time: 08/11/2020 2:09 AM Age: 75 years old Clinical indication: Speech disturbance; Dysphasia; Patient HX: Sudden onset of garbled speech. Last known well time @ approx. 2345. ; Additional info: Symptoms of acute stroke TECHNIQUE: Imaging protocol: Computed tomography of the head without contrast. Radiation optimization: All CT scans at this facility use at least one of these dose optimization techniques: automated exposure control; mA and/or kV adjustment per patient size (includes targeted exams where dose is matched to clinical indication); or iterative reconstruction. Other technique: STROKE PROTOCOL was implemented. COMPARISON: CT head wo con* [id number] 12/15/2017 1:36 PM RADIATION DOSE METRICS: Total DLP (mGy-cm): 690.97 FINDINGS: Brain: White matter encephalomalacia again noted at deep left frontal region. No findings of intracranial hemorrhage. Cerebral ventricles: No ventriculomegaly. Bones/joints: No acute findings. Paranasal sinuses: Mild ethmoid air cell mucosal thickening. Mastoid air cells: Visualized mastoid air cells are well aerated. Soft tissues: Unremarkable. Nasal cavity: Pneumatized left middle nasal turbinate. CT/CT head wo con* [id number] IMPRESSION: No acute intracranial abnormality. Other CT: Radiologist's impression: [place] [address] CT Scan Report Signed Patient: Purvi Sparks Unit #: [id number] : 1945 Age/Sex: 75 / F ADM Date: 08/11/20 Loc: ER Room/Bed: Attending Dr: Ordering Provider/Ordering MD: Luna Nielsen MD Date of Service: 08/11/20 Procedure(s): CT angio headneck* [id number] Accession Number(s): [id number] Report Number: [id number] PROCEDURE INFORMATION: Exam: CT Angiography Head With Contrast Exam date and time: 08/11/2020 2:09 AM Age: 75 years old Clinical indication: Speech disturbance; Dysphasia; Patient HX: Sudden onset of garbled speech. Last known well time @ approx. 2345. ; Additional info: CVA TECHNIQUE: Imaging protocol: Computed tomography angiography of the head with intravenous contrast. 3D rendering (Not supervised by radiologist): MIP and/or 3D reconstructed images were created by the technologist. Radiation optimization: All CT scans at this facility use at least one of these dose optimization techniques: automated exposure control; mA and/or kV adjustment per patient size (includes targeted exams where dose is matched to clinical indication); or iterative reconstruction. Contrast material: VISI 320; Contrast volume: 95 ml; Contrast route: INTRAVENOUS (IV); COMPARISON: CT head wo con* [id number] 08/11/2020 1:47 AM RADIATION DOSE METRICS: Total DLP (mGy-cm): 1546.76 FINDINGS: ANTERIOR CIRCULATION: Right internal carotid artery: Mild atheromatous change right internal carotid artery. Right middle cerebral artery: Unremarkable. No occlusion or significant stenosis. No aneurysm. Right anterior cerebral artery: Unremarkable. No occlusion or significant stenosis. No aneurysm. Left internal carotid artery: Mild atheromatous change left internal carotid artery. Left middle cerebral artery: Unremarkable. No occlusion or significant stenosis. No aneurysm. Left anterior cerebral artery: Unremarkable. No occlusion or significant stenosis. No aneurysm. POSTERIOR CIRCULATION: Right vertebral artery: Unremarkable. No occlusion or significant stenosis. No aneurysm. Left vertebral artery: Unremarkable. No occlusion or significant stenosis. No aneurysm. Basilar artery: Unremarkable. No occlusion or significant stenosis. No aneurysm. Right posterior cerebral artery: Unremarkable. No occlusion or significant stenosis. No aneurysm. Left posterior cerebral artery: Unremarkable. No occlusion or significant stenosis. No aneurysm. Brain: No definite mass, mass effect, or midline shift. Cerebral ventricles: No ventriculomegaly. Bones/joints: No acute findings. Soft tissues: Unremarkable. IMPRESSION: No large vessel stenosis or occlusion. PROCEDURE INFORMATION: Exam: CT Angiography Neck With Contrast Exam date and time: 08/11/2020 2:09 AM Age: 75 years old Clinical indication: Speech disturbance; Dysphasia; Patient HX: Sudden onset of garbled speech. Last known well time @ approx. 2345. ; Additional info: CVA TECHNIQUE: Imaging protocol: Computed tomography angiography of the neck with intravenous contrast. 3D rendering (Not supervised by radiologist): MIP and/or 3D reconstructed images were created by the technologist. Radiation optimization: All CT scans at this facility use at least one of these dose optimization techniques: automated exposure control; mA and/or kV adjustment per patient size (includes targeted exams where dose is matched to clinical indication); or iterative reconstruction. Contrast material: VISI 320; Contrast volume: 95 ml; Contrast route: INTRAVENOUS (IV); COMPARISON: CT head wo con* [id number] 08/11/2020 1:47 AM RADIATION DOSE METRICS: Total DLP (mGy-cm): 1546.76 FINDINGS: Right common carotid artery: No stenosis. No dissection or occlusion. Right internal carotid artery: Mild atheromatous change proximal right internal carotid artery. Right external carotid artery: Mild atheromatous change proximal right external carotid artery. Right vertebral artery: No stenosis. No dissection or occlusion. Left common carotid artery: No stenosis. No dissection or occlusion. Left internal carotid artery: Mild atheromatous change proximal left internal carotid artery. Left external carotid artery: Mild atheromatous change proximal left external carotid artery. Left vertebral artery: No stenosis. No dissection or occlusion. Paranasal sinuses: Retention cyst left maxillary sinus. Bones/joints: No acute fracture. Soft tissues: Normal. No significant soft tissue swelling. CT/CT angio headneck* [id number] IMPRESSION: No stenosis or occlusion. REFERENCES: NASCET CRITERIA. The degree of internal carotid artery stenosis is based on NASCET criteria. Normal is no stenosis. Mild is less than 50% stenosis. Moderate is 50-69% stenosis. Severe is 70% to 99% stenosis. Total occlusion is no detectable patent lumen. CXR: Attestation: I personally reviewed and interpreted this imaging study as follows: My impression: no acute abnormalities EKG Data^: EKG 1: Attestation: I personally reviewed and interpreted this EKG as follows: EKG interpretation date: 08/11/20 EKG interpretation time: 02:26 Interpretation: nsr hr [address] or t wave abnormalities qrs 95 qtc 389 Discharge Plan Discharge Patient Disposition: Placed in Observation Admit Provider: Jacoby Angeles Clinical Impression: Hyperglycemia Cerebrovascular accident Qualifiers: CVA mechanism: unspecified Qualified Code(s): I63.9 - Cerebral infarction, unspecified Coding Level of Care Code ED Traffic Monitor Specialist for Chg Fwd Exam Comprehensive
--- NOTE | 2020-08-11 02:35 | XR_ITS ---
WS: [id number] Portable AP upright chest, 08/11/2020 Clinical Data: cough Comparison: Portable chest, 07/20/2020. Findings: No nodules, masses or effusions are seen. The heart is normal. The pulmonary vascularity is not increased. No pneumonia or pneumothorax is seen. The aortic arch and descending aorta show minim al calcification and tortuosity. The left diaphragm is mildly elevated. XR/XR chest 1V portable [id number] Impression: Atherosclerosis.
[2020-08-11 02:42] LABS: Glucose Point of Care 355 mg/dL (70-110)
[2020-08-11 03:03] LABS: Basophils # 0.1 10^3/uL (0.0-0.1); Basophils % 0.8 %; Eosinophils # 0.1 10^3/uL (0.0-0.8); Eosinophils % 0.5 %; Hematocrit 44.5 % (37.0-47.0); Hemoglobin 14.5 g/dL (11.5-15.3); Lymphocytes # 3.7 10^3/uL (0.8-4.8); Lymphocytes % 31.6 %; Mean Corpuscular HGB Conc 32.6 g/dL (30.0-36.0); Mean Corpuscular Hemoglobin 31.7 pg (28.0-34.0); Mean Corpuscular Volume 97.4 fL (81-99); Mean Platelet Volume 12.8 fL (7.4-10.4); Monocytes # 1.3 10^3/uL (0.2-0.9); Monocytes % 10.7 %; Neutrophils # 6.46 10^3/uL (1.8-7.7); Neutrophils % 54.7 %; Nucleated Red Blood Cells % 0 %; Platelet Count 219 10^3/cmm (130-400); Red Blood Count 4.57 10^6/uL (4.1-5.3); Red Cell Distribution Width 13.3 % (12.1-15.1); White Blood Count 11.8 10^3/uL (4.0-10.0)
[2020-08-11 03:15] LABS: INR 1.24 (0.8-1.2)
[2020-08-11 03:17] LABS: Partial Thromboplastin Time 32.7 SECONDS (23.9-36.7)
[2020-08-11 03:26] LABS: Alanine Aminotransferase 15 U/L (0-33); Albumin Level 3.5 g/dL (3.5-5.2); Alkaline Phosphatase 177 IU/L (35-105); Anion Gap 17.3 (5-19); Aspartate Amino Transferase 16 U/L (0-32); Blood Urea Nitrogen 31 mg/dL (8-23); Carbon Dioxide 26 mmol/L (22-29); Chloride 89 mmol/L (98-107); Globulin 3.6 g/dL (1.3-4.6); Glucose 342 mg/dL (65-115); Osmolality Calculated 284 mOsm/kg (285-295); Potassium 5.3 mmol/L (3.5-5.1); Sodium 127 mmol/L (136-145); Total Bilirubin 0.2 mg/dL (0.15-1.2); Total Protein 7.1 g/dL (6.6-8.7)
[2020-08-11] MEDS: sodium chloride 0.9% 1,000 ML 999 ML IV (03:36)
--- NOTE | 2020-08-11 05:30 | PM.HP ---
Providers/Chief Complaint Admitting Physician: Jacoby Angeles Primary Care Provider: Elaine Topete Chief Complaint: STROKE History of Present Illness Purvi Sparks is a 75 year old female with a history of COPD, coronary artery disease, hypertension was brought to the emergency department because family noted patient was having difficulty finding words and her speech was slurred. Patient is on Eliquis for chronic atrial fibrillation and considered not a candidate for TPA administration. CT head done in the emergency department did not show any acute infarct or hemorrhage. EKG unremarkable. Patient's speech improved while in the ED. She still has some slurred speech and mild left facial droop. Patient is hospitalized for further evaluation and management. Review of Systems Narrative: She denied any headache, she denied any cough or shortness of breath, she denied any fever, she denied any abdominal pain, she denied any dysuria or urinary frequency. Except as documented, all other systems reviewed and negative. Medications/Allergies Home Medications Medication Instructions Recorded Confirmed Last Taken Type Eliquis 5 mg PO BID 07/18/19 07/20/20 01/06/20 History fluoxetine [Prozac] 20 mg PO DAILY 07/18/19 07/20/20 Unknown History lisinopril 5 mg PO DAILY 07/18/19 07/20/20 Unknown History ondansetron HCl [Zofran] 4 mg PO Q6H PRN 07/18/19 07/20/20 Unknown History oxybutynin chloride 5 mg PO BID 07/18/19 07/20/20 01/06/20 History ropinirole 1 mg PO DAILY 07/18/19 07/20/20 01/06/20 History rosuvastatin 10 mg PO DAILY 07/18/19 07/20/20 01/06/20 History furosemide [Lasix] 20 mg PO DAILY #30 tab 07/21/19 07/20/20 Unknown Rx diltiazem HCl 120 mg 120 mg PO DAILY 08/05/19 07/20/20 01/06/20 History capsule,extended release 24 hr Tresiba FlexTouch U-200 See Rx Instructions .ROUTE .COMPLEX 01/06/20 07/20/20 01/06/20 History acetaminophen 500 mg PO Q6H PRN 01/06/20 07/20/20 Unknown History budesonide-formoterol [Symbicort] See Rx Instructions .ROUTE .COMPLEX 01/06/20 07/20/20 01/06/20 History docusate sodium [Stool Softener] 100 mg PO DAILY 01/06/20 07/20/20 01/06/20 History insulin lispro [Humalog KwikPen See Rx Instructions .ROUTE .COMPLEX 01/06/20 07/20/20 01/06/20 History Insulin] nystatin See Rx Instructions .ROUTE .COMPLEX 01/06/20 07/20/20 Unknown History potassium chloride 20 meq PO BID 01/06/20 07/20/20 01/06/20 History hydrocodone 10 mg-acetaminophen 1 tab PO TID PRN 30 Days #90 tab 04/29/20 07/20/20 Unknown Rx 325 mg tablet Allergies Allergy/AdvReac Type Severity Reaction Status Date / Time morphine Allergy ALGY-Rash Verified 08/11/20 02:42 quinine Allergy ALGY-Rash Verified 08/11/20 02:42 Sulfa (Sulfonamide Allergy ALGY-Rash Verified 08/11/20 02:42 Antibiotics) Penicillins AdvReac ALGY-Rash Verified 08/11/20 02:42 PFSH Acute PFSH: Medical History (Updated 08/11/20 @ 03:54 by Luna Nielsen MD) C. difficile colitis Chronic atrial fibrillation COPD (chronic obstructive pulmonary disease) Coronary artery disease Current every day smoker Degenerative lumbar spinal stenosis Diabetes mellitus Gastroesophageal reflux disease History of ESBL E. coli infection History of MRSA infection History of small bowel obstruction Medically managed to date HTN (hypertension), malignant Hyperlipidemia Morbid obesity Opioid contract exists Restless leg syndrome Surgical History History of appendectomy History of bladder suspension procedure History of cholecystectomy History of colonoscopy (~2013) History of orthopedic surgery Wrist and left leg History of tubal ligation Family History Other CAD (coronary artery disease) Cancer Social History Smoking and tobacco status: current every day smoker cigarettes Packs smoked per day: 0.5 Alcohol intake: never Caregiver/support person: Yes (Son as well as some home health) History of recent travel: No Vitals/I&O/Wt Last Vital Signs Temp 97.5 F L 08/11/20 02:00 Pulse 101 H 08/11/20 04:33 Resp 18 08/11/20 04:33 BP 109/60 08/11/20 04:33 Pulse Ox 96 08/11/20 04:33 Weight last 48 hrs Weight 100.97 kg Physical Exam Const: COMMON NORMALS: no acute distress and patient oriented x3 NUTRITIONAL APPEARANCE: obese HENMT: COMMON NORMALS: normocephalic and atraumatic FACE & SINUS: Flattened naso-labial fold present Left MOUTH: Normal oral and palatal mucosa present and tongue normal Eye: COMMON NORMALS: Equal, round and reactive pupils present, EOMs intact bilaterally, conjunctivae normal and no scleral icterus Neck/C-Spine: COMMON NORMALS: full ROM, no lymphadenopathy and no JVD Lymph: LYMPHATIC: no lymphadenopathy noted Resp: COMMON NORMALS: normal respiratory effort, No use of accessory muscles and clear to auscultation bilaterally Cardio: COMMON NORMALS: no JVD RHYTHM: abnormal rhythm irregularly irregular HEART SOUNDS: S1 normal heart sound present and S2 normal heart sound present GI: COMMON NORMALS: Normal to inspection, nondistended, normoactive bowel sounds present, Soft to palpation, non-tender, No hepatosplenomegaly present and no masses : COMMON NORMALS: Yes no CVA tenderness Back/Pelvis: COMMON NORMALS: thoraco-lumbar ROM normal Extremity: COMMON NORMALS: normal to inspection, full ROM, no clubbing, cyanosis or edema and no pedal edema Neuro: COMMON NORMALS: patient oriented x3 and no focal motor deficits (Mild left facial droop) SPEECH: abnormal speech Details: slurred Psych: COMMON NORMALS: mental status grossly normal, Normal thought process present, cooperative and normal affect Skin: GENERAL SKIN EXAM: no rashes or lesions noted and turgor normal Data : 08/11/20 02:34 08/11/20 02:34 A&P Assessment and plan (1) Cerebrovascular accident: Status: Acute Qualifiers: CVA mechanism: unspecified Qualified Code(s): I63.9 - Cerebral infarction, unspecified (2) Low back pain of over 3 months duration: Status: Acute (3) Chronic atrial fibrillation: Status: Acute (4) On apixaban therapy: Status: Acute (5) Diabetes mellitus: Status: Acute (6) Hyperlipidemia: Status: Acute Qualifiers: Hyperlipidemia type: mixed hyperlipidemia Qualified Code(s): E78.2 - Mixed hyperlipidemia (7) HTN (hypertension), malignant: Status: Acute (8) Morbid obesity: Status: Acute (9) Long-term current use of opiate analgesic: Status: Acute Additional A&P Information Place patient under observation. Neurochecks. Permissive hypertension Speech and swallow evaluation Obtain MRI of the brain, carotid Doppler and echocardiogram as part of CVA work-up. Check lipid profile Patient started on Lipitor, aspirin 162 mg daily. Continue Eliquis. Continue A. fib with controlled medications. Insulin sliding scale for glucose management. PT to evaluate Screen for COVID-19 given complaint of sore throat. Attestations Medical Necessity Statement*: Patient presenting with slurred speech and difficulty finding words. She will need to be hospitalized for further evaluation for acute CVA. She is expected to spend less than 2 midnights. Time Spent in Patient Care: Time spent: 66 minutes Coding Level of Care Code Acute Stores Despatch Hand for [facility] Fwd Exam Comprehensive Diagnoses Cerebrovascular accident I63.9 CVA mechanism: unspecified Low back pain of over 3 months duration M54.5 Chronic atrial fibrillation I48.20 On apixaban therapy Z79.01 Diabetes mellitus E11.9 Hyperlipidemia E78.2 Hyperlipidemia type: mixed hyperlipidemia HTN (hypertension), malignant I10 Morbid obesity E66.01 Long-term current use of opiate analgesic Z79.891
[2020-08-11] MEDS: enoxaparin 40 mg/0.4 mL Syringe SUBCUT (06:11)
[2020-08-11 06:29] LABS: Glucose Point of Care 247 mg/dL (70-110)
[2020-08-11 07:20] LABS: SARS Covid-2 Antigen Negative (Negative)
[2020-08-11] MEDS: aspirin 81 mg EC Tablet 162 MG PO (08:10)
--- NOTE | 2020-08-11 09:16 | MR_ITS ---
WS: [id number] MRI BRAIN WITHOUT CONTRAST HISTORY: cva COMPARISON: 08/11/2020 TECHNIQUE: Diffusion imaging, multiplanar T1, T2 and FLAIR imaging obtained. No evidence for acute infarct or hemorrhage. Villarreal-white matter differentiation is normal. Moderate atrophy and moderate chronic microvascular ischemic changes in the white matter. Slightly gr eater on the LEFT than the RIGHT ischemic changes. No prior infarct. Ventricles and extra-axial spaces are normal. No inferior displacement of cerebellar tonsils. The sella turcica and pituitary gland are unremarkabl e. Posterior fossa is also unremarkable. Dural venous sinuses and [place] demonstrate no abnormality on this unenhanced studies. Paranasal sinuses: Mucous retention cyst in the floor the LEFT maxillary sinus. No air-fluid levels. Mastoid air cells: Normal. Calvarium and scalp: Intact. MR/MR head wo con* [id number] IMPRESSION: 1. No acute infarct or midline shift. 2. Moderate chronic microvascular ischemic changes, slightly greater on the LE FT than the RIGHT. 3. Moderate cerebral atrophy.
--- NOTE | 2020-08-11 09:32 | PC.CHAP ---
Pastoral Care Encounter/Spiritual Assessment Type of Contact [] Declined welding tester visit [] Patient/Family/Request visit [] Outpatient visit [] Follow-up visit [] Physician referral [] Code/Alert [x] Routine visit [] Staff referral [] Actively dying [] Patient sleeping [] Family support [] [] Out of room [] Palliative care [] [] Receiving care in room [] Pre-surgical visit [] Trauma [] Long length of stay [] ICU visit [] Other: Relational/Emotional Strength [x] Patient feels connected with others/family/visitors/staff [] Distress [] Loneliness/isolation [] Abandonment Spirituality of Patient [x] Person of Chiqui [] Attends Sabianism of their Chiqui [] Believes in Prayer [] Reads Bible or Hoahaoism materials [] There are Spiritual issues to be addressed [employer] Mechanic Interventions [x] Prayer [x] Active listening [] Non-anxious presence [] Spiritual/emotional support [] Crisis/trauma care [] Spiritual counseling [] Bereavement support [] Provided bereavement packet [] Provided Bible/devotional materials [] Provided toy/stuffed animal, coloring book to patient or family member [] Provided Communion [] Anointing/[place] [] Salvation [x] Completed spiritual assessment [] Other: Impact on Illness or Injury [] Angry [] Fearful [] Anxious [] Often cries [] Exhaustion [] Unable to work [] Unable to attend jew [] Unable to walk/stand [] Unable to read [] Unable to drive [] Unable to eat/drink [] Unable to sleep [] Unable to be with family [] Patient intubated [] Other: Summary patient feeling better but still waiting to find out what wrong Time spent with patient
--- NOTE | 2020-08-11 09:41 | PC.NURSE ---
No diet order.
--- NOTE | 2020-08-11 11:02 | PC.NURSE ---
pt back from MRI
--- NOTE | 2020-08-11 11:22 | PC.OT ---
OT EVALUATION ORDERS RECEIVED. OT SCREEN COMPLETED. PATIENT REPORTS THAT SHE LIVES WITH HER SON. HAS A HH AIDE 7 DAYS/WEEK. THEY PROVIDE BED BATH AND ASSISTANCE WITH ADLS. BATHING: AIDE DOES ALL; TOTAL ASSISTANCE DRESSING: MODERATE ASSISTANCE LB DRESSING/ SET-UP UB DRESSING TOILETING: DEPENDENT; USES BED BYRD REPORTS A PREVIOUS BROKEN LEG THAT RESULTED IN A LENGTH DISCREPANCY AND SHE IS UNABLE TO WALK. DME: HOSPITAL BED, W/C-MANUAL AND PWC, AVE [facility] USES THIS TO GET PATIENT OOB. PATIENT REPORTS THAT SHE IS AT PLOF. NO FURTHER SKILLED OT REQUIRED AT THIS TIME.
[2020-08-11 11:38] LABS: Glucose Point of Care 189 mg/dL (70-110)
--- NOTE | 2020-08-11 13:09 | P.DS_ITS ---
Discharge Providers Date of Admission: 08/11/20 03:48 Date of Discharge: August 11, 2020 Attending Provider at Admission: Jacoby Angeles Attending Provider at Discharge: Morris Bolivar Primary Care Provider: Elaine Topete Diagnoses at Discharge Discharge Diagnosis (1) Cerebrovascular accident: Status: Acute Permanent problem details: TIA Qualifiers: CVA mechanism: unspecified Qualified Code(s): I63.9 - Cerebral infarction, unspecified (2) Low back pain of over 3 months duration: Status: Acute (3) Chronic atrial fibrillation: Status: Acute (4) On apixaban therapy: Status: Acute (5) Diabetes mellitus: Status: Acute (6) Hyperlipidemia: Status: Acute Qualifiers: Hyperlipidemia type: mixed hyperlipidemia Qualified Code(s): E78.2 - Mixed hyperlipidemia (7) HTN (hypertension), malignant: Status: Acute (8) Morbid obesity: Status: Acute (9) Long-term current use of opiate analgesic: Status: Acute (10) Hyperkalemia: Status: Acute (11) Hyponatremia: Status: Acute Reason for Visit Reason for Visit: STROKE Hospital Course Hospital Course Pleasant 75-year-old lady with history of COPD, on chronic 4 L of oxygen by nasal cannula, CAD, HTN, diabetes, atrial fibrillation on chronic anticoagulation with Eliquis, chronic nonambulatory status, chronic back pain, was admitted versus management of strokelike symptoms with word finding difficulty and slurred speech, mild left facial droop. CT of the head showed no hemorrhage. There was no hypoglycemia. She was not a candidate for TPA. Her symptoms resolved shortly after presentation. She underwent MRI brain which did not show new CVA, showed chronic microvascular changes, atrophy. CTA head and neck did not reveal any significant stenosis. She was continued on Eliquis for atrial fibrillation. She was started on aspirin. She is already on statin, but on discharge dose is increased to high intensity at 20 mg rosuvastatin. 81 mg aspirin was also added to Eliquis after discussion of increased risk of bleeding with her and her son. We also extensively discussed her symptoms and additional risk factors for TIA or CVA recurrence of which she is at risk going forward. She understands that she needs to quit smoking and states that she will be attempting to do so. She also has history of poorly controlled diabetes, A1c was 14 last year. A1c is requested during this hospitalization as well, and the results are still pending. Please follow-up. Her blood pressures remained at target during the hospitalization, although value as high as 180/125 was noted in the past, and episodic hypertension may be also contributing factor. She is instructed to continue to monitor her blood pressures. Due to noted mild hyperkalemia 5.3 for now potassium supplements are discontinued, and she is instructed to hold lisinopril. She is instead started for now on amlodipine. Please reassess blood pressures, potassium level, and resume lisinopril when safe. She is noted to have mild-moderate hyponatremia 127. She is asked not to restrict sodium in her diet. Lasix for now is changed to as needed. Please follow-up level. She is feeling much better today. She is somewhat bothered by chronic back pain, but otherwise denies any additional neurologic symptoms. Has been no recurrence of word finding difficulty, she has no slurred speech. No new focal neurological release noted today. She is referred also for follow-up with neurology in office. Please see full results of work-up, and notes from hospitalization for details. Do not hesitate to reach out with questions. Physical Exam Const: COMMON NORMALS: no acute distress, patient oriented x3 and alert GENERAL APPEARANCE: cooperative NUTRITIONAL APPEARANCE: obese ORIENTATION/CONSCIOUSNESS: Yes awake HENMT: COMMON NORMALS: oropharynx normal Neck/C-Spine: COMMON NORMALS: no meningeal signs and no JVD Resp: COMMON NORMALS: normal respiratory effort and clear to auscultation bilaterally AUSCULTATION: clear to auscultation bilaterally Cardio: COMMON NORMALS: no JVD, regular rhythm, S1 normal heart sound present, S2 normal heart sound present and No murmurs present (Cardio) RHYTHM: regular rhythm HEART SOUNDS: S1 normal heart sound present and S2 normal heart sound present GI: COMMON NORMALS: Normal to inspection, nondistended, normoactive bowel sounds present, Soft to palpation and non-tender PALPATION: Yes Soft to palpation Extremity: COMMON NORMALS: no joint enlargement and no pedal edema Neuro: COMMON NORMALS: patient oriented x3 and moves all extremities SENSORIUM/ORIENTATION: Yes alert MENINGEAL SIGNS: Yes no meningeal signs COORDINATION/BALANCE: [id number] test normal SPEECH: speech normal SENSORY EXAM: Yes Abnormal double simultaneous stimulation for sensation; No sensory level loss detected MOTOR EXAM: Other motor observations present (3+-4/5 power throughout) COORDINATION: [id number] test normal OTHER: Tracking well. No nystagmus. Visual guadalupe full to confrontation. No facial droop. Skin: COMMON NORMALS: no rashes or lesions noted GENERAL SKIN EXAM: no rashes or lesions noted Discharge Data Data Completed and Pending: Completed Studies During Hospitalization Category Date Time Status CT angio headneck * [id number] Stat Cat Scan 08/11/20 01:[address] head wo con* [id number] Stat Cat Scan 08/11/20 01:59 Completed XR chest 1V jennifer ble [id number] Stat Exams 08/11/20 02:35 Completed MR head wo con* [id number] Routine MRI 08/11/20 09:16 Completed Pending at discharge Category Date Time Status Hemoglobin A1C AM LABS Lab 08/12/20 04:00 Ordered Hemoglobin A1C Ro utine Lab 08/11/20 02:34 Received Lipid Panel AM LA BS Lab 08/12/20 04:00 Ordered CV carotid duplex BI* [id number] Routine Ultrasound 08/12/20 06:00 Ordered CV echo complete* [id number] Routine Ultrasound 08/12/20 06:00 Ordered Labs from last 24 hours 08/11/20 08/11/20 08/11/20 11:34 06:19 06:15 WBC RBC Hgb Hct MCV MCH MCHC RDW Plt Count MPV Neut % (Auto) Lymph % (Auto) [place] % (Auto) Eos % (Auto) Baso % (Auto) Neut # (Auto) Lymph # (Auto) [place] # (Auto) Eos # (Auto) Baso # (Auto) Nucleated RBC % (a uto) Nucleated RBCs # PT INR APTT Sodium Potassium Chloride Carbon Dioxide Anion Gap BUN Creatinine GFR Calculation Glucose POC Glucose 189 H 247 H Estimat Average Gl ucose Hemoglobin A1c Calculated Osmolal ity Calcium Total Bilirubin AST ALT Alkaline Phosphata se Total Protein Albumin Globulin SARS-CoV-2 Ag (Rap id) Negative 08/11/20 08/11/20 08/11/20 02:34 02:34 02:34 WBC RBC Hgb Hct MCV MCH MCHC RDW Plt Count MPV Neut % (Auto) Lymph % (Auto) [place] % (Auto) Eos % (Auto) Baso % (Auto) Neut # (Auto) Lymph # (Auto) [place] # (Auto) Eos # (Auto) Baso # (Auto) Nucleated RBC % (a uto) Nucleated RBCs # PT 16.00 H INR 1.24 H APTT 32.7 Sodium 127 L Potassium 5.3 H Chloride 89 L Carbon Dioxide 26 Anion Gap 17.3 BUN 31 H Creatinine 0.7 GFR Calculation Not Reportable Glucose 342 H POC Glucose Estimat Average Gl ucose Pending Hemoglobin A1c Pending Calculated Osmolal ity 284 L Calcium 10.0 Total Bilirubin 0.2 AST 16 ALT 15 Alkaline Phosphata se 177 H Total Protein 7.1 Albumin 3.5 Globulin 3.6 SARS-CoV-2 Ag (Rap id) 08/11/20 08/11/20 02:34 02:20 WBC 11.8 H RBC 4.57 Hgb 14.5 Hct 44.5 MCV 97.4 MCH 31.7 MCHC 32.6 RDW 13.3 Plt Count 219 MPV 12.8 H Neut % (Auto) 54.7 Lymph % (Auto) 31.6 [place] % (Auto) 10.7 Eos % (Auto) 0.5 Baso % (Auto) 0.8 Neut # (Auto) 6.46 Lymph # (Auto) 3.7 [place] # (Auto) 1.3 H Eos # (Auto) 0.1 Baso # (Auto) 0.1 Nucleated RBC % (a uto) 0 Nucleated RBCs # 0.0 PT INR APTT Sodium Potassium Chloride Carbon Dioxide Anion Gap BUN Creatinine GFR Calculation Glucose POC Glucose 355 H Estimat Average Gl ucose Hemoglobin A1c Calculated Osmolal ity Calcium Total Bilirubin AST ALT Alkaline Phosphata se Total Protein Albumin Globulin SARS-CoV-2 Ag (Rap id) Vitals: Last Vital Signs Temp 98.4 F 08/11/20 12:07 Pulse 75 08/11/20 12:07 Resp 19 H 08/11/20 12:07 BP 112/81 08/11/20 12:07 Pulse Ox 97 08/11/20 12:07 Discharge Plan Discharge Patient Disposition: Home Condition: Stable Prescriptions: New Adult Aspirin Regimen 81 mg tablet,delayed release (DR/EC) 81 mg PO DAILY Qty: 30 RF: 0 amlodipine 2.5 mg tablet 2.5 mg PO DAILY Qty: 7 RF: 0 Continued diltiazem HCl [Cartia XT] 120 mg capsule,extended release 24hr 120 mg PO DAILY RF: 0 hydrocodone-acetaminophen 10-325 mg tablet 1 tab PO TID PRN (Reason: pain) 30 Days Qty: 90 RF: 0 Hold Instructions: Home Medication placed on hold at Doctor's office ropinirole 1 mg Tablet 1 mg PO DAILY RF: 0 ondansetron HCl [Zofran] 4 mg Tablet 4 mg PO Q6H PRN (Reason: Nausea) RF: 0 oxybutynin chloride 5 mg Tablet 5 mg PO BID RF: 0 fluoxetine [Prozac] 20 mg Capsule 20 mg PO DAILY RF: 0 Eliquis 5 mg Tablet 5 mg PO BID RF: 0 acetaminophen 500 mg Tablet 500 mg PO Q6H PRN (Reason: Pain) RF: 0 nystatin 100,000 unit/gram cream See Rx Instructions .ROUTE .COMPLEX RF: 0 docusate sodium [Stool Softener] 100 mg Tablet 100 mg PO DAILY RF: 0 insulin lispro [Humalog KwikPen Insulin] 100 unit/mL insulin pen See Rx Instructions .ROUTE .COMPLEX RF: 0 budesonide-formoterol [Symbicort] 160-4.5 mcg/actuation HFA aerosol inhaler See Rx Instructions .ROUTE .COMPLEX RF: 0 Tresiba FlexTouch U-200 200 unit/mL (3 mL) insulin pen See Rx Instructions .ROUTE .COMPLEX RF: 0 Changed Lasix 20 mg tablet 20 mg PO DAILY PRN (Reason: Edema) Qty: 30 RF: 0 rosuvastatin 10 mg Tablet 20 mg PO DAILY Qty: 0 RF: 0 Held lisinopril 5 mg Tablet 5 mg PO DAILY RF: 0 Hold Instructions: Resume on 08/18/20. Discontinued potassium chloride 20 mEq tablet,ER particles/crystals 20 meq PO BID RF: 0 Discharge Orders: Discharge Order (Routine); Ordered 08/11/20 Ordered By: Morris Bolivar Referrals: Rosalba Kerr MD [Physician] - 1 week (TIA) Elaine Topete PA [Primary Care Provider] - 08/17/20 1:30 pm Discharge Diet: As Directed Discharge Activity: Increase activity as tolerated and Oxygen as instructed Patient Instructions: Diabetes and Diet, Aspirin (By mouth), Rosuvastatin (By mouth), Apixaban (By mouth), How to Stop Smoking (GEN), Hyponatremia (GEN), Cigarette Smoking and Your Health (GEN), Diabetes Mellitus Type 2 in Adults (GEN), Basic Carbohydrate Counting (GEN), Hyperkalemia (GEN), Quitting Smoking, TIA Activity Restrictions/Additional Instructions: Please stop smoking to reduce risk of stroke, and other risks that may be associated with it. Please continue to work with your primary care doctor to optimize control of diabetes as well as any other risk factors for stroke, please monitor your blood pressure 3 times daily and write down values. There is concern for possible short episodes of very elevated blood pressure that may be contributing to your symptoms. In addition to your blood thinner Eliquis, you are also started on a small dose of aspirin to reduce risk of stroke. Please be aware of increased risk of bleeding, and exercise caution to avoid any injury. Please maintain low potassium diet. Your potassium level was found mildly elevated at 5.3. Due to this potassium supplements for now are discontinued. Please hold lisinopril also until you see your primary care doctor in office. Please have them recheck your potassium level, renal function, and sodium level in office to make sure they are normalizing. Do not limit intake of sodium on purpose. 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
[2020-08-11 13:21] LABS: Estmated Average Glucose 344; Hemoglobin A1C 13.6 % (4.0-6.0)
--- NOTE | 2020-08-11 15:43 | PC.NURSE ---
pt ivs taken out and intact. pt discharge instructions explained and questions answered.
--- NOTE | 2020-08-11 17:01 | PC.RESP ---
Smoking Cessation and Pulmonary Rehab information sent to patient.
== END 2020-08-11 15:46 | disposition home or self-care (01) ==
LOC: ER 03:54 → MEDSURG 04:04
PROVIDERS: Admitting Provider Internal Medicine; Emergency Provider Emergency Medicine; PCP Physician Assistant; Visit Provider Internal Medicine
DX: I63.9 Cerebral infarction, unspecified (principal); M54.5 Low back pain; I48.20 Chronic atrial fibrillation, unspecified; Z79.01 Long term (current) use of anticoagulants; E11.9 Type 2 diabetes mellitus without complications; E78.2 Mixed hyperlipidemia; I10 Essential (primary) hypertension; E66.01 Morbid (severe) obesity due to excess calories; Z68.38 Body mass index [BMI] 38.0-38.9, adult; Z79.891 Long term (current) use of opiate analgesic; E87.1 Hypo-osmolality and hyponatremia; E87.5 Hyperkalemia; Z79.4 Long term (current) use of insulin; I25.10 Atherosclerotic heart disease of native coronary artery without angina pectoris; F17.210 Nicotine dependence, cigarettes, uncomplicated; K21.9 Gastro-esophageal reflux disease without esophagitis
CPT/HCPCS: 12345; 36416; 70450; 70496; 70498; 70551; 71045; 80053; 82962; 83036; 85025; 85610; 85730; 87426; 92523; 92610; 93005; 96360; 96361; 96372; 99283; 99285; G0378; J1650; J1815; J7030; Q9967

== ENCOUNTER → 2020-09-15 09:50 | Outpatient (BNVA) | payer MEDICARE, MEDICAID, SELFPAY | PROVIDERS: PCP Physician Assistant; Referring Provider Internal Medicine; Visit Provider Nurse Practitioner | DX: I99.8 Other disorder of circulatory system (principal); F17.210 Nicotine dependence, cigarettes, uncomplicated | CPT/HCPCS: 99204 ==

== ENCOUNTER 2023-01-23 23:41 | Inpatient (IN) | payer MEDICARE, MEDICAID, SELFPAY ==
--- NOTE | 2023-01-23 23:44 | XRR_ITS ---
PROCEDURE INFORMATION: Exam: XR Chest Exam date and time: 01/24/2023 12:48 AM Age: 77 years old Clinical indication: Other: AMS TECHNIQUE: Imaging protocol: Radiologic exam of the chest. Views: 1 view. COMPARISON: CR XR chest 1V portable [id number] 08/11/2020 2:35 AM FINDINGS: Lungs: No CHF/pulmonary edema. Mild to moderate left lower lung opacities, suspicious for pneumonia. Please correlate clinically. There are some limitations in evaluation due to patient rotation. Visible lungs otherwise appear essentially clear. Pleural spaces: No visible pneumothorax. No definite pleural fluid. Heart/Mediastinum: Heart size appears upper normal. Bones/joints: No significant acute finding. XR/XR chest 1V portable [id number] IMPRESSION: 1. Left lower lung opacities, see above discussion. 2. Other findings discussed above.
--- NOTE | 2023-01-23 23:44 | CTR_ITS ---
PROCEDURE INFORMATION: Exam: CT Head Without Contrast Exam date and time: 01/24/2023 12:43 AM Age: 77 years old Clinical indication: Altered mental status/memory loss; Age related cognitive decline; Additional info: AMS TECHNIQUE: Imaging protocol: Computed tomography of the head without contrast. Radiation optimization: All CT scans at this facility use at least one of these dose optimization techniques: automated exposure control; mA and/or kV adjustment per patient size (includes targeted exams where dose is matched to clinical indication); or iterative reconstruction. REPORTING DATA: Count of CT and Cardiac NM exams in prior 12 months: This patient has received 0 known CTs and 0 known cardiac nuclear medicine studies in the 12 months prior to the current study. COMPARISON: CT head wo con 08/11/2020 1:47 AM RADIATION DOSE METRICS: Total DLP (mGy-cm): 1060.18 FINDINGS: Brain: No acute intracranial hemorrhage or mass effect. There is decreased attenuation in the periventricular white matter, likely from microvascular disease. Old white matter infarct in the left frontal/parietal region, similar to the prior exam. No definite acute infarct by CT. MRI would be more sensitive/specific for detection, as clinically directed. Cerebral ventricles: Ventricle size is normal for age. Paranasal sinuses: 12 mm retention cyst or polyp in the inferior left maxillary sinus. Included paranasal sinuses otherwise appear essentially clear. Mastoid air cells: No significant acute finding. Bones/joints: No definite acute skull fracture. Soft tissues: No significant acute finding. Vasculature: Vascular calcifications in the internal carotid and vertebral basilar systems. CT/CT head wo con* [id number] IMPRESSION: 1. No acute intracranial hemorrhage or mass effect. 2. 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 3. No definite acute infarct by CT, see above. 4. Other findings discussed above.
--- NOTE | 2023-01-23 23:45 | ECG_ITS ---
[facility] Test Date: 2023-01-24 Pat Name: Purvi Sparks Department: Room: Gender: Female High Tension Tester: : 1945 Requested By: Luna Nielsen Order Number: [id number] Reading MD: Measurements Intervals [place] Rate: 108 P: 0 AK: 0 QRS: 12 QRSD: 73 T: 58 QT: 392 QTc: 528 Interpretive Statements SUPRAVENTRICULAR TACHYCARDIA LOW QRS VOLTAGE IN PRECORDIAL LEADS [QRS DEFLECTION < 1.0 mV IN CHEST LEADS] ABNORMAL RHYTHM ECG Compared to ECG 08/11/2020 04:03:12 Myocardial infarct finding no longer present [email or web address]
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
[2023-01-24] VITALS (9 sets, daily range): BP systolic 106–163; BP diastolic 56–106; PULSE 91–111; RESP 14–20; TEMP 36.3–37.1; O2SAT 14–100
[2023-01-24 00:31] LABS: Arterial Blood Gas Hematocrit 35.7 % (37-47); Base Excess ABG 11.4 mmol/L (-2.0-2.0); Blood Gas Operator Identificat Anonymous
[2023-01-24 00:40] LABS: ABG PCO2 55.6 mmHg (35-45); ABG PH Result 7.43 (7.35-7.45); HCO3 ABG 35.7 mmol/L (22-26); PO2 ABG 65.3 mmHg (80.0-100.0)
[2023-01-24 00:40] LABS: Basophils # 0.1 10^3/uL (0.0-0.1); Basophils % 0.6 %; Eosinophils # 0.1 10^3/uL (0.0-0.8); Eosinophils % 0.8 %; Hematocrit 40.5 % (37.0-47.0); Hemoglobin 11.9 g/dL (11.5-15.3); Lymphocytes # 3.6 10^3/uL (0.8-4.8); Lymphocytes % 28.3 %; Mean Corpuscular HGB Conc 29.4 g/dL (30.0-36.0); Mean Corpuscular Hemoglobin 29.9 pg (28.0-34.0); Mean Corpuscular Volume 101.8 fl (81-99); Mean Platelet Volume 11.2 fL (7.4-10.4); Monocytes # 1.2 10^3/uL (0.2-0.9); Monocytes % 9.7 %; Neutrophils # 7.57 10^3/uL (1.8-7.7); Neutrophils % 59.5 %; Nucleated Red Blood Cells % 0 %; Platelet Count 281 10^3/cmm (130-400); Red Blood Count 3.98 10^6/uL (4.1-5.3); Red Cell Distribution Width 16.2 % (12.1-15.1); White Blood Count 12.7 10^3/uL (4.0-10.0)
[2023-01-24 00:41] LABS: Blood Gas LPM 3.5 %
[2023-01-24 00:42] LABS: Blood Gas Sample Type ARTERIAL; Oxygen Device NC
[2023-01-24 00:43] LABS: Blood Gas Sample Site LEFT BRACHIAL
[2023-01-24 00:43] LABS: Glucose Point of Care 245 mg/dL (70-110)
[2023-01-24 01:45] LABS: INR 1.18 (0.8-1.2)
[2023-01-24 01:48] LABS: Ammonia 37 umol/L (11-51)
[2023-01-24 01:49] LABS: Alanine Aminotransferase 20 U/L (0-33); Albumin Level 3.3 g/dL (3.5-5.2); Alkaline Phosphatase 93 U/L (35-105); Anion Gap 12.3 (5-19); Aspartate Amino Transferase 19 U/L (0-32); Blood Urea Nitrogen 4 mg/dL (8-23); Calcium 8.4 mg/dL (8.5-10.5); Carbon Dioxide 36 mmol/L (22-29); Chloride 92 mmol/L (98-107); Creatine Phosphokinase 38 U/L (26-192); Globulin 3.6 g/dL (1.3-4.6); Glucose 208 mg/dL (65-115); Magnesium 1.3 mg/dL (1.7-2.3); Osmolality Calculated 287 mOsm/kg (285-295); Potassium 3.3 mmol/L (3.5-5.1); Sodium 137 mmol/L (136-145); Total Bilirubin 0.4 mg/dL (0.15-1.2); Total Protein 6.9 g/dL (6.6-8.7)
[2023-01-24 01:55] LABS: NT Pro B Type Natriuretic Pept 469 pg/mL (0-450)
[2023-01-24] MEDS: sodium chloride 0.9% 1,000 ML 999 ML IV (02:17)
[2023-01-24] MEDS: magnesium sulfate premix 2 GM/50 ML PIGGYBACK IV (02:31)
[2023-01-24 02:33] LABS: Thyroid Stimulating Hormone 2.14 uIU/mL (0.27-4.20); Vitamin B12 924 pg/mL (232-1245)
[2023-01-24 02:35] LABS: Folate Level 6.1 ng/mL (4.8-37.3)
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
[2023-01-24] MEDS: potassium chloride ER 20 mEq Tablet 40 MEQ PO (04:23)
[2023-01-24] MEDS: cefTRIAXone 1,000 MG in sodium chloride 0.9% (plus) 50 ML 100 MG IV (04:24)
[2023-01-24] MEDS: azithromycin 500 MG in sodium chloride 0.9% 250 ML 250 MG IV (04:49)
[2023-01-24 05:52] LABS: Adenovirus Not Detected (NOT DETECT); Chlamydia Pneumoniae Not Detected (NOT DETECT); Coronavirus 229E,HKU1,NL63,OC4 Not Detected (NOT DETECT); Human Metapneumovirus Not Detected (NOT DETECT); Human Rhinovirus/Enterovirus Not Detected (NOT DETECT); Influenza A Not Detected (NOT DETECT); Influenza A H1 Not Detected (NOT DETECT); Influenza A H1-2009 Not Detected (NOT DETECT); Influenza A H3 Not Detected (NOT DETECT); Influenza B Not Detected (NOT DETECT); Mycoplasma Pneumoniae Not Detected (NOT DETECT); Parainfluenza Virus Type 1 Not Detected (NOT DETECT); Parainfluenza Virus Type 2 Not Detected (NOT DETECT); Parainfluenza Virus Type 3 Not Detected (NOT DETECT); Parainfluenza Virus Type 4 Not Detected (NOT DETECT); Respiratory Syncytial Virus A Not Detected (NOT DETECT); Respiratory Syncytial Virus B Not Detected (NOT DETECT); SARS-COV-2 Not Detected (NOT DETECT)
[2023-01-24 06:45] LABS: Glucose Point of Care 200 mg/dL (70-110)
[2023-01-24] MEDS: ipratropium-albuterol 3 mL Neb INHALATION ×2 (09:08→20:05)
[2023-01-24] MEDS: budesonide 0.5 mg/2 mL Neb INHALATION ×2 (09:08→20:05)
[2023-01-24] MEDS: atorvastatin 40 mg Tablet 80 MG PO (09:33)
[2023-01-24] MEDS: apixaban 5 mg Tablet PO ×2 (09:33→17:41)
[2023-01-24] MEDS: lisinopril 5 mg Tablet PO (09:33)
[2023-01-24] MEDS: fluoxetine 20 mg Capsule PO (09:33)
[2023-01-24] MEDS: aspirin 81 mg EC Tablet PO (09:33)
[2023-01-24] MEDS: dilTIAZem ER (24HR) 120 mg Capsule PO (09:33)
[2023-01-24 10:51] LABS: Glucose Point of Care 298 mg/dL (70-110)
--- NOTE | 2023-01-24 10:53 | PC.PHAR ---
PT UNABLE TO VERIFY DUE TO AMS. PT STATES SON TAKES CARE OF MEDICATIONS. HAVE ATTEMPTED TO CALL SON MULTIPLE TIME WITH NO RESPONSE. DAUGHTER STATES PT TAKES CARE OF OWN MEDS. UNABLE TO COPLETE MED REC. AT THIS TIME. ATTEMPTING TO OBTAIN MORE INFORMATION FROM PHARMACIES AND PATIENT'S SON.
--- NOTE | 2023-01-24 15:10 | P.PN_ITS ---
Subjective Subjective: She does tell me that she is in the hospital. Tells me the year, her, beyond that cannot tell me anything about her medical conditions or why she is in the hospital. Starts crying, I want to go home . At home she states she lives with her son Aron, thanks for second but does not name anyone else. States she has no concerns regarding her current living at home. Vitals/I&O/Wt Last Vital Signs Temp 97.4 F L 01/24/23 11:18 Pulse 101 H 01/24/23 11:18 Resp 19 H 01/24/23 11:18 BP 109/68 01/24/23 11:18 Pulse Ox 93 01/24/23 11:18 O2 Del Method Nasal Cannula 01/24/23 11:18 O2 Flow Rate 5 01/24/23 03:00 01/24/23 01/24/23 01/24/23 06:59 14:59 22:59 Intake Total 1470 / 1470 240 / 240 Balance 1470 / 1470 240 / 240 Physical Exam Const: GENERAL APPEARANCE: cooperative and disheveled ORIENTATION/CONSCIOUSNESS: Yes awake OTHER: Labile affect. Intermittently starts crying I want to go home, I want to go home . HENMT: COMMON NORMALS: oropharynx normal Neck/C-Spine: COMMON NORMALS: no JVD Resp: COMMON NORMALS: clear to auscultation bilaterally AUSCULTATION: clear to auscultation bilaterally OTHER: NC Cardio: COMMON NORMALS: no JVD, regular rhythm, S1 normal heart sound present, S2 normal heart sound present and No murmurs present (Cardio) RHYTHM: regular rhythm HEART SOUNDS: S1 normal heart sound present and S2 normal heart sound present GI: COMMON NORMALS: Normal to inspection, nondistended, normoactive bowel sounds present, Soft to palpation and non-tender PALPATION: Yes Soft to palpation Extremity: COMMON NORMALS: no joint enlargement and no pedal edema Neuro: COMMON NORMALS: moves all extremities Skin: OTHER: Irregularly-shaped wound on upper abdomen with eschar. No surrounding erythema or drainage. Small irregularly shaped wound on the lower abdomen, unclear if pressure ulcer from a belt buckle or other. Diffuse area of erythematous moisture injury on the buttocks, upper thighs Data 01/24/23 00:34 01/24/23 00:34 Micro: Microbiology 01/24/23 02:36 Blood Culture - Preliminary Blood SPECIMEN COLLECTED 01/24/23 02:30 Blood Culture - Preliminary Blood SPECIMEN COLLECTED A&P Assessment and plan (1) Acute metabolic encephalopathy: The confusion does not appear to be significantly better. She is oriented to being going into media, however, with rather labile affect, starts crying, saying she wants to go home. Cannot tell me why she is here or anything about her medical conditions. Takes her little time to recall that she lives with her son. Continue treatment of pneumonia. COVID-19 noted negative. Urine sample so far not available. Received magnesium supplementation. We will recheck magnesium. TSH noted WNL. B12 and folate levels normal. Noted hyperglycemia, glucose up t o 298. Did not eat lunch. Refused insulin. Sodium 137. (2) Pneumonia: Continue ceftriaxone, azithromycin. Nasal cannula oxygen support. Blood culture noted no Gram stain available yet (3) Hypoxia: Continue oxygen support. Wean down as tolerated. Patient requiring more oxygen than typical. This appears to be secondary to pneumonia Wean oxygen as tolerated DuoNeb every 6 hours, budesonide twice daily (4) Diarrhea: So far no stool. C. difficile is requested, not collected. Family gives recent history of diarrhea Patient has past history of C. difficile (5) Hypomagnesemia: Repeat magnesium level. (6) Hypokalemia: Received replacement. Follow-up chemistry. (7) Tobacco dependency: Encourage abstinence Nicotine patch. Lozenges as needed. (8) Chronic atrial fibrillation: Continue Eliquis, home medications for rate control consisting of diltiazem Cardiac monitoring (9) Macrocytosis: Follow-up CBC. Noted normal TSH, B12 and folate Plan Diabetes mellitus. Insulin sliding scale. Consistent carbohydrate diet. Moisture damage on buttocks, upper thighs, lower vaginal candidiasis. Zinc oxide moisture barrier. Nystatin to skin folds, labia. We will give a dose of Diflucan. Wounds on the abdomen: Triple antibiotic ointment. Multiple other medical problems as outlined in past medical history Concern of poor social environment. Discussed with discharge planning. Hotlined in ER. Eliquis will suffice for DVT prophylaxis Full code currently Attestations Medical Necessity Statement*: Continue admission for assessment management of acute encephalopathy, pneumonia, electrolyte deficiency Diagnoses Acute metabolic encephalopathy G93.41 Pneumonia J18.9 Hypoxia R09.02 Diarrhea R19.7 Hypomagnesemia E83.42 Hypokalemia E87.6 Tobacco dependency F17.200 Chronic atrial fibrillation I48.20 Macrocytosis D75.89
[2023-01-24 16:49] LABS: Glucose Point of Care 249 mg/dL (70-110)
[2023-01-24] MEDS: nicotine 21 mg Patch 1 PATCH TRANSDERMA (17:39)
[2023-01-24] MEDS: fluconazole 100 mg Tablet 150 MG PO (17:40)
[2023-01-24] MEDS: neomycin-poly-bacitracin oint 28 gm 1 APPLIC TOPICAL (20:10)
[2023-01-24] MEDS: nystatin cream 30 gm 1 APPLIC TOPICAL (20:10)
[2023-01-24] MEDS: zinc oxide oint 30 gm 1 APPLIC TOPICAL (20:10)
[2023-01-25] VITALS (9 sets, daily range): BP systolic 113–173; BP diastolic 65–103; PULSE 74–103; RESP 13–18; TEMP 36.3–37.1; O2SAT 92–100
[2023-01-25] MEDS: ipratropium-albuterol 3 mL Neb INHALATION ×3 (02:33→20:26)
[2023-01-25] MEDS: cefTRIAXone 1,000 MG in sodium chloride 0.9% (plus) 50 ML 100 MG IV (04:31)
[2023-01-25] MEDS: azithromycin 500 MG in sodium chloride 0.9% 250 ML 250 MG IV (05:01)
[2023-01-25 05:35] LABS: Basophils % 0.4 %; Eosinophils # 0.1 10^3/uL (0.0-0.8); Eosinophils % 1.3 %; Hematocrit 33.6 % (37.0-47.0); Hemoglobin 10.5 g/dL (11.5-15.3); Lymphocytes # 2.9 10^3/uL (0.8-4.8); Lymphocytes % 31.3 %; Mean Corpuscular HGB Conc 31.3 g/dL (30.0-36.0); Mean Corpuscular Hemoglobin 31.8 pg (28.0-34.0); Mean Corpuscular Volume 101.8 fl (81-99); Mean Platelet Volume 13.2 fL (7.4-10.4); Monocytes # 0.8 10^3/uL (0.2-0.9); Monocytes % 8.5 %; Neutrophils # 5.25 10^3/uL (1.8-7.7); Neutrophils % 57.5 %; Nucleated Red Blood Cells % 0 %; Platelet Count 400 10^3/cmm (130-400); Red Cell Distribution Width 16.5 % (12.1-15.1); White Blood Count 9.1 10^3/uL (4.0-10.0)
[2023-01-25 06:57] LABS: Glucose Point of Care 192 mg/dL (70-110)
[2023-01-25 06:57] LABS: Glucose Point of Care 239 mg/dL (70-110)
[2023-01-25 07:21] LABS: Add Urine Microscopic? YES; Bilirubin Urine Neg (Negative); Blood Urine Neg (Negative); Glucose Urine UA Norm (Normal); Ketones Urine Negative (Negative); Leukocyte Esterase Urine 2+ (Negative); Nitrate Urine Negative (Negative); Protein Urine Neg (Negative); Specific Gravity, Urine 1.015 (1.005-1.030); Urine Appearance Cloudy (CLEAR); Urine Color Yellow (Yellow); Urobilinogen Urine Norm (Negative); pH Urine 7 (5-7)
[2023-01-25 07:45] LABS: RBC Urine 0-4 /hpf (0-2); WBC Urine 15-25 /hpf (0-5)
[2023-01-25 07:46] LABS: Add Urine Culture? Yes; Bacteria Urine 2+ /hpf; Hyaline Casts Urine RARE /lpf; Mucus Urine 1+ /hpf; Squamous Epithelial Cell Urine 0-4 /hpf (0-5)
[2023-01-25 09:09] LABS: Alanine Aminotransferase 17 U/L (0-33); Albumin Level 2.2 g/dL (3.5-5.2); Alkaline Phosphatase 66 U/L (35-105); Blood Urea Nitrogen 4 mg/dL (8-23); Calcium 7.8 mg/dL (8.5-10.5); Carbon Dioxide 31 mmol/L (22-29); Chloride 97 mmol/L (98-107); Globulin 3.3 g/dL (1.3-4.6); Glucose 191 mg/dL (65-115); Magnesium 1.4 mg/dL (1.7-2.3); Osmolality Calculated 286 mOsm/kg (285-295); Sodium 137 mmol/L (136-145); Total Bilirubin 0.4 mg/dL (0.15-1.2); Total Protein 5.5 g/dL (6.6-8.7)
[2023-01-25 09:11] LABS: Anion Gap 13.2 (5-19); Aspartate Amino Transferase 15 U/L (0-32); Potassium 4.2 mmol/L (3.5-5.1)
--- NOTE | 2023-01-25 09:15 | PC.PHAR ---
UNABLE TO VERIFY 01/24/23. MEDICATION BOTTLES IN ROOM TODAY. VERIFIED WITH [facility] TO MATCH PATIENTS CURRENT MED LIST 01/25/23. NO INSULINS, PROZAC, AMLODIPINE, ASA, TYLENOL, INHALERS, OR LASIX
[2023-01-25] MEDS: neomycin-poly-bacitracin oint 28 gm 1 APPLIC TOPICAL ×2 (09:43→17:41)
[2023-01-25] MEDS: apixaban 5 mg Tablet PO ×2 (09:44→17:38)
[2023-01-25] MEDS: dilTIAZem ER (24HR) 120 mg Capsule PO (09:44)
[2023-01-25] MEDS: atorvastatin 40 mg Tablet 80 MG PO (09:44)
[2023-01-25] MEDS: lisinopril 5 mg Tablet PO (09:44)
[2023-01-25] MEDS: insulin lispro 100 unit/1 mL SUBCUT ×4 (09:44→21:11)
[2023-01-25] MEDS: aspirin 81 mg EC Tablet PO (09:44)
[2023-01-25] MEDS: zinc oxide oint 30 gm 1 APPLIC TOPICAL ×2 (09:44→17:40)
[2023-01-25] MEDS: nystatin cream 30 gm 1 APPLIC TOPICAL ×2 (09:44→17:40)
[2023-01-25] MEDS: fluoxetine 20 mg Capsule PO (09:44)
[2023-01-25] MEDS: nicotine 21 mg Patch 1 PATCH TRANSDERMA (09:45)
--- NOTE | 2023-01-25 10:12 | PC.CHAP ---
Pastoral Care Encounter/Spiritual Assessment Type of Contact [] Declined cell biology scientist visit [] Patient/Family/Request visit [] Outpatient visit [x] Follow-up visit [] Physician referral [] Code/Alert [] Routine visit [] Staff referral [] Actively dying [] Patient sleeping [] Family support [] [] Out of room [] Palliative care [] [] Receiving care in room [] Pre-surgical visit [] Trauma [] Long length of stay [] ICU visit [] Other: Relational/Emotional Strength [] Patient feels connected with others/family/visitors/staff [] Distress [] Loneliness/isolation [] Abandonment Spirituality of Patient [] Person of Chiqui [] Attends Church of their Chiqui [] Believes in Prayer [] Reads Bible or Episcopal materials [] There are Spiritual issues to be addressed Window Trimmer Interventions [] Prayer [] Active listening [] Non-anxious presence [] Spiritual/emotional support [] Crisis/trauma care [] Spiritual counseling [] Bereavement support [] Provided bereavement packet [] Provided Bible/devotional materials [] Provided toy/stuffed animal, coloring book to patient or family member [] Provided Communion [] Anointing/[place] [] Salvation [] Completed spiritual assessment [] Other: Impact on Illness or Injury [] Angry [] Fearful [] Anxious [] Often cries [] Exhaustion [] Unable to work [] Unable to attend rastafarian [] Unable to walk/stand [] Unable to read [] Unable to drive [] Unable to eat/drink [] Unable to sleep [] Unable to be with family [] Patient intubated [] Other: Summary Follow-up visit Time spent with patient 5 mins
[2023-01-25 11:01] LABS: Glucose Point of Care 201 mg/dL (70-110)
[2023-01-25 17:15] LABS: Glucose Point of Care 247 mg/dL (70-110)
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
[2023-01-25] MEDS: budesonide 0.5 mg/2 mL Neb INHALATION (20:26)
[2023-01-25 21:03] LABS: Glucose Point of Care 209 mg/dL (70-110)
[2023-01-25] MEDS: magnesium sulfate premix 4 GM/100 ML PREMIX IV (21:12)
[2023-01-26] VITALS (11 sets, daily range): BP systolic 116–154; BP diastolic 60–86; PULSE 69–98; RESP 15–19; TEMP 36.6–37; O2SAT 91–97
[2023-01-26] MEDS: cefTRIAXone 1,000 MG in sodium chloride 0.9% (plus) 50 ML 100 MG IV (04:15)
[2023-01-26] MEDS: azithromycin 500 MG in sodium chloride 0.9% 250 ML 250 MG IV (05:04)
--- NOTE | 2023-01-26 06:00 | XR_ITS ---
WS: [id number] Exam: XR chest 1V portable [id number] Date/Time of Exam: 01/26/2023 6:00 AM Reason For Exam: Hypoxia Comparison 01/24/2023. There is infiltrate in the left lower lobe showing little change. Remaining lung guadalupe are clear. No pneumothorax. Heart size is normal. The mediastinum is normal in contour. There is rotation of the c hest. Degenerative changes of both shoulders. XR/XR chest 1V portable [id number] IMPRESSION: 1. Left lower lobe infiltrate unchanged. No new significant finding.
[2023-01-26 06:54] LABS: Glucose Point of Care 196 mg/dL (70-110)
[2023-01-26 07:25] LABS: Basophils # 0.1 10^3/uL (0.0-0.1); Basophils % 0.5 %; Eosinophils # 0.1 10^3/uL (0.0-0.8); Eosinophils % 1.4 %; Hematocrit 34.3 % (37.0-47.0); Hemoglobin 10.1 g/dL (11.5-15.3); Lymphocytes # 2.5 10^3/uL (0.8-4.8); Lymphocytes % 24.9 %; Mean Corpuscular HGB Conc 29.4 g/dL (30.0-36.0); Mean Corpuscular Hemoglobin 29.7 pg (28.0-34.0); Mean Corpuscular Volume 100.9 fl (81-99); Mean Platelet Volume 11.3 fL (7.4-10.4); Monocytes # 1.1 10^3/uL (0.2-0.9); Monocytes % 10.6 %; Neutrophils # 6.12 10^3/uL (1.8-7.7); Neutrophils % 61.9 %; Nucleated Red Blood Cells % 0 %; Platelet Count 227 10^3/cmm (130-400); Red Cell Distribution Width 15.9 % (12.1-15.1); White Blood Count 9.9 10^3/uL (4.0-10.0)
[2023-01-26 08:01] LABS: Alanine Aminotransferase 14 U/L (0-33); Albumin Level 2.6 g/dL (3.5-5.2); Alkaline Phosphatase 72 U/L (35-105); Anion Gap 9.9 (5-19); Aspartate Amino Transferase 11 U/L (0-32); Blood Urea Nitrogen 5 mg/dL (8-23); Calcium 8.3 mg/dL (8.5-10.5); Carbon Dioxide 36 mmol/L (22-29); Chloride 97 mmol/L (98-107); Globulin 2.7 g/dL (1.3-4.6); Glucose 179 mg/dL (65-115); Magnesium 1.8 mg/dL (1.7-2.3); Osmolality Calculated 290 mOsm/kg (285-295); Potassium 3.9 mmol/L (3.5-5.1); Sodium 139 mmol/L (136-145); Total Bilirubin 0.4 mg/dL (0.15-1.2); Total Protein 5.3 g/dL (6.6-8.7)
[2023-01-26] MEDS: ipratropium-albuterol 3 mL Neb INHALATION ×3 (09:19→20:38)
[2023-01-26] MEDS: dilTIAZem ER (24HR) 120 mg Capsule PO (10:19)
[2023-01-26] MEDS: nicotine 21 mg Patch 1 PATCH TRANSDERMA (10:19)
[2023-01-26] MEDS: atorvastatin 40 mg Tablet 80 MG PO (10:19)
[2023-01-26] MEDS: apixaban 5 mg Tablet PO ×2 (10:20→18:01)
[2023-01-26] MEDS: aspirin 81 mg EC Tablet PO (10:20)
[2023-01-26] MEDS: fluoxetine 20 mg Capsule PO (10:20)
[2023-01-26] MEDS: lisinopril 5 mg Tablet PO (10:20)
[2023-01-26 11:32] LABS: Glucose Point of Care 233 mg/dL (70-110)
[2023-01-26] MEDS: meropenem 1,000 MG in sodium chloride 0.9% (plus) 50 ML 100 MG IV (12:10)
[2023-01-26] MEDS: insulin lispro 100 unit/1 mL SUBCUT ×3 (12:11→21:57)
[2023-01-26] MEDS: zinc oxide oint 30 gm 1 APPLIC TOPICAL ×2 (16:31→21:59)
[2023-01-26] MEDS: neomycin-poly-bacitracin oint 28 gm 1 APPLIC TOPICAL ×2 (16:31→21:58)
[2023-01-26] MEDS: nystatin cream 30 gm 1 APPLIC TOPICAL ×2 (16:31→21:58)
[2023-01-26 17:10] LABS: Glucose Point of Care 276 mg/dL (70-110)
--- NOTE | 2023-01-26 19:56 | P.PN_ITS ---
Subjective Subjective: She knows she is in the hospital. She can tell me the year, does not remember the month. Cannot tell me any of her underlying illnesses (spreads her arms) nor why she had come into the hospital. Does not remember about having wounds on her abdomen. Starts crying stating she wants to go home. Unable to discuss concerns regarding her illness. Later during second visit daughter at bedside, daughter states that her mother may frequently have episodes where she cries to try to get her way. Daughter discusses with her to need to stay in the hospital and continue treatment. States that mother otherwise is still confused. Vitals/I&O/Wt Last Vital Signs Temp 98.5 F 01/26/23 19:24 Pulse 91 01/26/23 19:24 Resp 15 01/26/23 19:24 BP 117/70 01/26/23 19:24 Pulse Ox 92 01/26/23 19:24 O2 Del Method Nasal Cannula 01/26/23 19:24 O2 Flow Rate 5 01/26/23 19:24 01/26/23 01/26/23 01/26/23 06:59 14:59 22:59 Intake Total 400 / 880 410 / 410 240 / 650 Balance 400 / 880 410 / 410 240 / 650 Physical Exam Const: GENERAL APPEARANCE: cooperative and disheveled ORIENTATION/CONSCIOUSNESS: Yes awake OTHER: After initial assessment states that she is ready to go home . When discussing her conditions and need for further treatment, starts inconsolably repeating I want to go home I want to go home . Unable to tell me any of her medical conditions or medical problems treated here in the hospital despite discussing them yesterday. HENMT: COMMON NORMALS: oropharynx normal Neck/C-Spine: COMMON NORMALS: no JVD Resp: COMMON NORMALS: normal respiratory effort and clear to auscultation bilaterally AUSCULTATION: clear to auscultation bilaterally OTHER: NC Cardio: COMMON NORMALS: no JVD, regular rhythm, S1 normal heart sound present, S2 normal heart sound present and No murmurs present (Cardio) RHYTHM: regular rhythm HEART SOUNDS: S1 normal heart sound present and S2 normal heart sound present GI: COMMON NORMALS: Normal to inspection, nondistended, normoactive bowel sounds present, Soft to palpation and non-tender PALPATION: Yes Soft to palpation Extremity: COMMON NORMALS: no joint enlargement and no pedal edema Neuro: COMMON NORMALS: moves all extremities Skin: COMMON NORMALS: no rashes or lesions noted GENERAL SKIN EXAM: no rashes or lesions noted OTHER: Irregularly-shaped wound on upper abdomen with eschar. No surrounding erythema or drainage. Small irregularly shaped wound on the lower abdomen, unclear if pressure ulcer from a belt buckle or other. Diffuse area of erythematous moisture injury on the buttocks, upper thighs Data 01/26/23 07:16 01/26/23 07:16 Micro: Microbiology 01/25/23 06:50 Urine Culture - Preliminary Urine,Clean Catch Gram Negative Rods A&P Assessment and plan (1) Acute metabolic encephalopathy: Persistent encephalopathy, poor safety awareness, no understanding of her condition. Daughter confirms persistent encephalopathy. Continue treatment of urinary tract infection. Discussed with her daughter prior ESBL organism UTI. Antibiotic changed to meropenem. Currently gram- negative mile on Gram stain and urine. Continue treatment of pneumonia. Follow-up urine culture. Blood culture preliminary negative to date. COVID-19 noted negative. Additional magnesium given with noted 1.8. Recheck magnesium. TSH noted WNL. B12 and folate levels normal. Sodium WNL Discussed with case management. (2) Pneumonia: Still requiring oxygen requirement. Left lower lobe infiltrate unchanged. Antibiotic changed to Primaxin, continue azithromycin. Nasal cannula oxygen support. Wean down as tolerating. Noted afebrile. Leukocytosis resolved. Sputum culture requested, uncollected. Blood culture noted negative to date (3) Hypoxia: As above. Continue oxygen support. Wean down as tolerated. Patient requiring more oxygen than typical. This appears to be secondary to pneumonia DuoNeb every 6 hours, budesonide twice daily (4) Diarrhea: Resolved. So far no stool. C. difficile is requested, not collected. No abdominal pain. No vomiting. Family gives recent history of diarrhea Patient has past history of C. difficile (5) Hypomagnesemia: Magnesium 1.8, additional magnesium given. Follow-up level. (6) Hypokalemia: Noted replaced. Follow-up chemistry. (7) Tobacco dependency: Encourage abstinence Nicotine patch. Lozenges as needed. (8) Chronic atrial fibrillation: Continue Eliquis, home medications for rate control consisting of diltiazem Cardiac monitoring (9) Macrocytosis: Follow-up CBC. normal TSH, B12 and folate Plan Diabetes mellitus. Insulin sliding scale. Consistent carbohydrate diet. Moisture damage on buttocks, upper thighs, lower vaginal candidiasis. Zinc oxide moisture barrier. Nystatin to skin folds, labia. We will give a dose of Diflucan. Wounds on the abdomen: Triple antibiotic ointment. Multiple other medical problems as outlined in past medical history Concern of poor social environment. Discussed with discharge planning. Ho tlined in ER. Eliquis will suffice for DVT prophylaxis Full code currently Attestations Medical Necessity Statement*: Continue admission for assessment management of acute encephalopathy IV replacement of persistent magnesium deficiency, treatment of pneumonia, suspected complicated UTI with MDRO. Diagnoses Acute metabolic encephalopathy G93.41 Pneumonia J18.9 Hypoxia R09.02 Diarrhea R19.7 Hypomagnesemia E83.42 Hypokalemia E87.6 Tobacco dependency F17.200 Chronic atrial fibrillation I48.20 Macrocytosis D75.89
[2023-01-26] MEDS: budesonide 0.5 mg/2 mL Neb INHALATION (20:37)
[2023-01-26 21:21] LABS: Glucose Point of Care 230 mg/dL (70-110)
[2023-01-27] VITALS (11 sets, daily range): BP systolic 98–144; BP diastolic 54–85; PULSE 89–118; RESP 16–18; TEMP 36.6–36.9; O2SAT 91–100
[2023-01-27] MEDS: azithromycin 500 MG in sodium chloride 0.9% 250 ML 250 MG IV (03:52)
[2023-01-27 04:50] LABS: Basophils # 0.1 10^3/uL (0.0-0.1); Basophils % 0.5 %; Eosinophils # 0.2 10^3/uL (0.0-0.8); Eosinophils % 2.2 %; Hematocrit 34.7 % (37.0-47.0); Hemoglobin 10.3 g/dL (11.5-15.3); Lymphocytes # 2.5 10^3/uL (0.8-4.8); Mean Corpuscular HGB Conc 29.7 g/dL (30.0-36.0); Mean Corpuscular Volume 101.2 fl (81-99); Mean Platelet Volume 11.5 fL (7.4-10.4); Monocytes # 0.9 10^3/uL (0.2-0.9); Monocytes % 9.5 %; Neutrophils # 5.58 10^3/uL (1.8-7.7); Neutrophils % 59.7 %; Nucleated Red Blood Cells % 0 %; Platelet Count 237 10^3/cmm (130-400); Red Blood Count 3.43 10^6/uL (4.1-5.3); Red Cell Distribution Width 15.7 % (12.1-15.1); White Blood Count 9.4 10^3/uL (4.0-10.0)
[2023-01-27 05:07] LABS: Alanine Aminotransferase 14 U/L (0-33); Albumin Level 2.6 g/dL (3.5-5.2); Alkaline Phosphatase 67 U/L (35-105); Anion Gap 9.3 (5-19); Aspartate Amino Transferase 10 U/L (0-32); Blood Urea Nitrogen 4 mg/dL (8-23); Calcium 8.6 mg/dL (8.5-10.5); Carbon Dioxide 36 mmol/L (22-29); Chloride 92 mmol/L (98-107); Globulin 3.3 g/dL (1.3-4.6); Glucose 159 mg/dL (65-115); Osmolality Calculated 276 mOsm/kg (285-295); Potassium 4.3 mmol/L (3.5-5.1); Sodium 133 mmol/L (136-145); Total Bilirubin 0.5 mg/dL (0.15-1.2); Total Protein 5.9 g/dL (6.6-8.7)
[2023-01-27 05:20] LABS: Magnesium 1.4 mg/dL (1.7-2.3)
[2023-01-27 07:03] LABS: Glucose Point of Care 167 mg/dL (70-110)
[2023-01-27] MEDS: budesonide 0.5 mg/2 mL Neb INHALATION ×2 (09:33→20:08)
[2023-01-27] MEDS: ipratropium-albuterol 3 mL Neb INHALATION ×3 (09:34→20:08)
[2023-01-27 11:23] LABS: Glucose Point of Care 222 mg/dL (70-110)
--- NOTE | 2023-01-27 11:57 | PC.SOCIAL ---
Imm update Imm updated with patient daughter, Belen, as patient was unable to provide her name. Copy of page 2 provided, Belen verbalized understanding. Copy in chart initialed, dated and timed.
[2023-01-27] MEDS: magnesium sulfate premix 4 GM/100 ML PREMIX IV (12:55)
[2023-01-27] MEDS: meropenem 1,000 MG in sodium chloride 0.9% (plus) 50 ML 100 MG IV (12:55)
[2023-01-27 16:57] LABS: Glucose Point of Care 284 mg/dL (70-110)
[2023-01-27] MEDS: apixaban 5 mg Tablet PO (17:02)
[2023-01-27] MEDS: insulin lispro 100 unit/1 mL SUBCUT ×2 (17:02→22:34)
[2023-01-27] MEDS: neomycin-poly-bacitracin oint 28 gm 1 APPLIC TOPICAL (17:03)
[2023-01-27] MEDS: zinc oxide oint 30 gm 1 APPLIC TOPICAL (17:03)
[2023-01-27] MEDS: nystatin cream 30 gm 1 APPLIC TOPICAL (17:03)
--- NOTE | 2023-01-27 20:25 | PM.PN ---
Subjective Subjective: This morning initially she seems more alert, more appropriate responses, knows she is in the hospital, cannot tell me the year and the month correctly. Does not remember any of her medical conditions. Discussed with her again regarding pneumonia, urinary tract infection, wounds on her skin, which she states does not remember how she may have sustained them either. Vitals/I&O/Wt Last Vital Signs Temp 98 F 01/27/23 16:00 Pulse 97 01/27/23 20:08 Resp 16 01/27/23 20:08 BP 104/54 01/27/23 16:00 Pulse Ox 95 01/27/23 20:08 O2 Del Method Nasal Cannula 01/27/23 20:08 O2 Flow Rate 4 01/27/23 20:08 01/27/23 01/27/23 01/27/23 06:59 14:59 22:59 Intake Total 490 / 1380 360 / 360 390 / 750 Balance 490 / 1380 360 / 360 390 / 750 Physical Exam Const: GENERAL APPEARANCE: cooperative and disheveled ORIENTATION/CONSCIOUSNESS: Yes awake HENMT: COMMON NORMALS: oropharynx normal Neck/C-Spine: COMMON NORMALS: no JVD Resp: COMMON NORMALS: normal respiratory effort and clear to auscultation bilaterally AUSCULTATION: clear to auscultation bilaterally OTHER: NC Cardio: COMMON NORMALS: no JVD, regular rhythm, S1 normal heart sound present, S2 normal heart sound present and No murmurs present (Cardio) RHYTHM: regular rhythm HEART SOUNDS: S1 normal heart sound present and S2 normal heart sound present GI: COMMON NORMALS: Normal to inspection, nondistended, normoactive bowel sounds present, Soft to palpation and non-tender PALPATION: Yes Soft to palpation Extremity: COMMON NORMALS: no joint enlargement and no pedal edema Neuro: COMMON NORMALS: moves all extremities Data 01/27/23 04:38 01/27/23 04:38 Micro: Microbiology 01/25/23 06:50 Urine Culture - Final Urine,Clean Catch Escherichia coli esbl A&P Assessment and plan (1) Acute metabolic encephalopathy: Today appears slightly more appropriate, better oriented history is able to tell me where she is as well as the year and the month. Still does not able to tell me any of her medical problems. Appears may be showing some mild improvement. Persistent encephalopathy, poor safety awareness, no understanding of her condition. Daughter confirms persistent encephalopathy. Continue treatment of urinary tract infection. Prior ESBL organism UTI. Antibiotic changed to meropenem. Currently gram-negative mile on Gram stain and urine. Continue treatment of pneumonia. Follow-up urine culture. Blood culture preliminary negative to date. COVID-19 noted negative. Again hypomagnesemia, 1.4. Given 4 g magnesium. Recheck magnesium. TSH noted WNL. B12 and folate levels normal. Sodium mildly low 133 Discussed with case management in rounds. They are working with her daughter who is power of deputy attorney general with regards to post discharge planning and consideration of SNF. (2) Pneumonia: Still requiring oxygen. Left lower lobe infiltrate unchanged. Nasal cannula oxygen support. Wean down as tolerating. Continue Primaxin and azithromycin. Noted afebrile. Leukocytosis resolved. Sputum culture requested, uncollected. Blood culture noted negative to date (3) Hypoxia: As above. Continue oxygen support. Wean down as tolerated. Patient requiring more oxygen than typical. This appears to be secondary to pneumonia DuoNeb every 6 hours, budesonide twice daily (4) Diarrhea: Resolved. So far no stool. C. difficile is requested, not collected. No abdominal pain. No vomiting. Family gives recent history of diarrhea Patient has past history of C. difficile (5) Hypomagnesemia: Magnesium 1.4, additional magnesium given. Follow-up level. (6) Hypokalemia: Potassium 4.3. Follow-up chemistry. (7) Tobacco dependency: Encourage abstinence Nicotine patch. Lozenges as needed. (8) Chronic atrial fibrillation: Continue Eliquis, home medications for rate control consisting of diltiazem Cardiac monitoring (9) Macrocytosis: Hemoglobin staying around 10. Follow-up CBC. normal TSH, B12 and folate Plan Diabetes mellitus. Insulin sliding scale. Consistent carbohydrate diet. Moisture damage on buttocks, upper thighs, lower vaginal candidiasis. Zinc oxide moisture barrier. Nystatin to skin folds, labia. Given dose of Diflucan. Wounds on the abdomen: Triple antibiotic ointment. Irregularly-shaped wound on upper left abdomen with eschar appears to be healing. No surrounding erythema or drainage. Small irregularly shaped wound on the lower abdomen, unclear if pressure ulcer from a belt buckle or other. Diffuse area of erythematous moisture injury on the buttocks, upper thighs Multiple other medical problems as outlined in past medical history Eliquis will suffice for DVT prophylaxis Full code currently Attestations Medical Necessity Statement*: Continue admission for assessment of acute encephalopathy, complicated/MDRO UTI, pneumonia, post discharge planning and arrangements. Diagnoses Acute metabolic encephalopathy G93.41 Pneumonia J18.9 Hypoxia R09.02 Diarrhea R19.7 Hypomagnesemia E83.42 Hypokalemia E87.6 Tobacco dependency F17.200 Chronic atrial fibrillation I48.20 Macrocytosis D75.89
[2023-01-27 21:40] LABS: Glucose Point of Care 206 mg/dL (70-110)
[2023-01-28] VITALS (11 sets, daily range): BP systolic 125–152; BP diastolic 65–91; PULSE 74–102; RESP 16–20; TEMP 36.3–37.7; O2SAT 92–98
[2023-01-28 04:10] LABS: Basophils # 0.1 10^3/uL (0.0-0.1); Basophils % 0.9 %; Eosinophils # 0.2 10^3/uL (0.0-0.8); Eosinophils % 2.8 %; Hematocrit 34.5 % (37.0-47.0); Hemoglobin 10.2 g/dL (11.5-15.3); Lymphocytes # 2.5 10^3/uL (0.8-4.8); Lymphocytes % 30.9 %; Mean Corpuscular HGB Conc 29.6 g/dL (30.0-36.0); Mean Corpuscular Hemoglobin 29.7 pg (28.0-34.0); Mean Corpuscular Volume 100.3 fl (81-99); Monocytes # 0.8 10^3/uL (0.2-0.9); Monocytes % 9.9 %; Neutrophils # 4.35 10^3/uL (1.8-7.7); Neutrophils % 54.6 %; Nucleated Red Blood Cells % 0 %; Platelet Count 223 10^3/cmm (130-400); Red Blood Count 3.44 10^6/uL (4.1-5.3); Red Cell Distribution Width 15.5 % (12.1-15.1)
[2023-01-28] MEDS: azithromycin 500 MG in sodium chloride 0.9% 250 ML 250 MG IV (04:14)
[2023-01-28 04:37] LABS: Magnesium 1.7 mg/dL (1.7-2.3)
[2023-01-28 04:40] LABS: Alanine Aminotransferase 13 U/L (0-33); Albumin Level 2.9 g/dL (3.5-5.2); Alkaline Phosphatase 76 U/L (35-105); Anion Gap 11.9 (5-19); Aspartate Amino Transferase 10 U/L (0-32); Blood Urea Nitrogen 6 mg/dL (8-23); Calcium 8.6 mg/dL (8.5-10.5); Carbon Dioxide 35 mmol/L (22-29); Chloride 95 mmol/L (98-107); Globulin 2.6 g/dL (1.3-4.6); Glucose 180 mg/dL (65-115); Osmolality Calculated 286 mOsm/kg (285-295); Potassium 4.9 mmol/L (3.5-5.1); Sodium 137 mmol/L (136-145); Total Bilirubin 0.3 mg/dL (0.15-1.2); Total Protein 5.5 g/dL (6.6-8.7)
[2023-01-28 06:44] LABS: Glucose Point of Care 176 mg/dL (70-110)
[2023-01-28] MEDS: nicotine 21 mg Patch 1 PATCH TRANSDERMA (08:27)
[2023-01-28] MEDS: dilTIAZem ER (24HR) 120 mg Capsule PO (08:27)
[2023-01-28] MEDS: fluoxetine 20 mg Capsule PO (08:27)
[2023-01-28] MEDS: apixaban 5 mg Tablet PO ×2 (08:27→18:07)
[2023-01-28] MEDS: aspirin 81 mg EC Tablet PO (08:27)
[2023-01-28] MEDS: lisinopril 5 mg Tablet PO (08:27)
[2023-01-28] MEDS: atorvastatin 40 mg Tablet 80 MG PO (08:27)
[2023-01-28] MEDS: insulin lispro 100 unit/1 mL SUBCUT ×4 (08:28→21:37)
[2023-01-28] MEDS: budesonide 0.5 mg/2 mL Neb INHALATION ×2 (08:54→19:45)
[2023-01-28] MEDS: ipratropium-albuterol 3 mL Neb INHALATION ×3 (08:54→19:45)
[2023-01-28] MEDS: nystatin cream 30 gm 1 APPLIC TOPICAL ×2 (11:27→18:08)
[2023-01-28] MEDS: neomycin-poly-bacitracin oint 28 gm 1 APPLIC TOPICAL ×2 (11:28→18:08)
[2023-01-28 11:56] LABS: Glucose Point of Care 221 mg/dL (70-110)
[2023-01-28] MEDS: meropenem 1,000 MG in sodium chloride 0.9% (plus) 50 ML 100 MG IV (12:40)
[2023-01-28 17:13] LABS: Glucose Point of Care 247 mg/dL (70-110)
[2023-01-28 20:44] LABS: Glucose Point of Care 175 mg/dL (70-110)
--- NOTE | 2023-01-28 21:05 | PM.PN ---
Subjective Subjective: Daughter at bedside. She remembers being in the hospital, can tell me the year and month. Cannot tell me what brought her to the hospital. Cannot tell me any of her medical problems. Adamantly declines that she will go anywhere but home. Vitals/I&O/Wt Last Vital Signs Temp 97.9 F 01/28/23 19:19 Pulse 89 01/28/23 19:45 Resp 18 01/28/23 19:45 BP 125/65 01/28/23 19:19 Pulse Ox 94 01/28/23 19:45 O2 Del Method Nasal Cannula 01/28/23 19:45 O2 Flow Rate 4 01/28/23 19:45 01/28/23 01/28/23 01/28/23 06:59 14:59 22:59 Intake Total 370 / 1120 890 / 890 240 / 1130 Balance 370 / 1120 890 / 890 240 / 1130 Physical Exam Const: GENERAL APPEARANCE: cooperative and disheveled ORIENTATION/CONSCIOUSNESS: Yes awake HENMT: COMMON NORMALS: oropharynx normal Neck/C-Spine: COMMON NORMALS: no JVD Resp: COMMON NORMALS: normal respiratory effort and clear to auscultation bilaterally AUSCULTATION: clear to auscultation bilaterally OTHER: NC Cardio: COMMON NORMALS: no JVD, regular rhythm, S1 normal heart sound present, S2 normal heart sound present and No murmurs present (Cardio) RHYTHM: regular rhythm HEART SOUNDS: S1 normal heart sound present and S2 normal heart sound present GI: COMMON NORMALS: Normal to inspection, nondistended, normoactive bowel sounds present, Soft to palpation and non-tender PALPATION: Yes Soft to palpation Extremity: COMMON NORMALS: no joint enlargement and no pedal edema Neuro: COMMON NORMALS: moves all extremities Skin: COMMON NORMALS: no rashes or lesions noted GENERAL SKIN EXAM: no rashes or lesions noted OTHER: Irregularly-shaped wound on upper abdomen with eschar. No surrounding erythema or drainage. Small irregularly shaped wound on the lower abdomen, unclear if pressure ulcer from a belt buckle or other. Diffuse area of erythematous moisture injury on the buttocks, upper thighs Data 01/28/23 02:55 01/28/23 02:55 A&P Assessment and plan (1) Acute metabolic encephalopathy: Persistent encephalopathy. Continue treatment of ESBL E. coli UTI with meropenem, today is day 3. Continue to reassess mental status. Continue discharge planning. Discussed discharge planning with her daughter earlier in the day. Later tonight on discussion with case management I am told nursing facility placement plans are being canceled. Noted ESBL E. coli in urine. Continue treatment of pneumonia. Blood culture preliminary negative to date. COVID-19 noted negative. Again hypomagnesemia, 1.7. Given 1 g magnesium. Recheck magnesium. TSH noted WNL. B12 and folate levels normal. Sodium back to normal Discussed with case management in rounds. They are working with her daughter who is power of state's attorney with regards to post discharge planning and consideration of SNF. (2) Pneumonia: Still requiring oxygen. However, appears to reach her baseline oxygenation. Left lower lobe infiltrate unchanged. Nasal cannula oxygen support. Wean down as tolerating. Continue Primaxin and azithromycin. Noted afebrile. Leukocytosis resolved. Sputum culture requested, uncollected. Blood culture noted negative to date (3) Hypoxia: As above. Continue oxygen support. Wean down as tolerated. Patient requiring more oxygen than typical. This appears to be secondary to pneumonia DuoNeb every 6 hours, budesonide twice daily (4) Diarrhea: Resolved. So far no stool. C. difficile is requested, not collected. Not likely C. difficile. No abdominal pain. No vomiting. Family gives recent history of diarrhea, but none here Patient has past history of C. difficile (5) Hypomagnesemia: Noted again lower magnesium. Given additional replacement. Follow-up level. (6) Hypokalemia: Potassium 4.9. Follow-up chemistry. (7) Tobacco dependency: Encourage abstinence Nicotine patch. Lozenges as needed. (8) Chronic atrial fibrillation: Continue Eliquis, home medications for rate control consisting of diltiazem Cardiac monitoring (9) Macrocytosis: Hemoglobin staying around 10. Follow-up CBC. normal TSH, B12 and folate Plan Diabetes mellitus. Insulin sliding scale. Consistent carbohydrate diet. Moisture damage on buttocks, upper thighs, lower vaginal candidiasis. Zinc oxide moisture barrier. Nystatin to skin folds, labia. Given dose of Diflucan. Wounds on the abdomen: Triple antibiotic ointment. Irregularly-shaped wound on upper left abdomen with eschar appears to be healing. No surrounding erythema or drainage. Small irregularly shaped wound on the lower abdomen, unclear if pressure ulcer from a belt buckle or other. Diffuse area of erythematous moisture injury on the buttocks, upper thighs Multiple other medical problems as outlined in past medical history Eliquis will suffice for DVT prophylaxis Full code currently Attestations Medical Necessity Statement*: Continue admission for assessment of acute encephalopathy, complicated/MDRO UTI, pneumonia, post discharge planning and arrangements. Diagnoses Acute metabolic encephalopathy G93.41 Pneumonia J18.9 Hypoxia R09.02 Diarrhea R19.7 Hypomagnesemia E83.42 Hypokalemia E87.6 Tobacco dependency F17.200 Chronic atrial fibrillation I48.20 Macrocytosis D75.89
[2023-01-29] VITALS (12 sets, daily range): BP systolic 110–133; BP diastolic 68–88; PULSE 91–111; RESP 17–20; TEMP 36.1–36.7; O2SAT 90–97
[2023-01-29] MEDS: ipratropium-albuterol 3 mL Neb INHALATION ×3 (03:08→13:28)
[2023-01-29] MEDS: azithromycin 500 MG in sodium chloride 0.9% 250 ML 250 MG IV (04:12)
[2023-01-29 06:17] LABS: Basophils # 0.1 10^3/uL (0.0-0.1); Basophils % 1.3 %; Eosinophils # 0.3 10^3/uL (0.0-0.8); Eosinophils % 2.9 %; Hematocrit 36.6 % (37.0-47.0); Hemoglobin 10.8 g/dL (11.5-15.3); Lymphocytes # 3.1 10^3/uL (0.8-4.8); Lymphocytes % 35.7 %; Mean Corpuscular HGB Conc 29.5 g/dL (30.0-36.0); Mean Corpuscular Hemoglobin 29.8 pg (28.0-34.0); Mean Corpuscular Volume 101.1 fl (81-99); Mean Platelet Volume 11.8 fL (7.4-10.4); Monocytes % 10.9 %; Neutrophils % 48.3 %; Nucleated Red Blood Cells % 0 %; Platelet Count 220 10^3/cmm (130-400); Red Blood Count 3.62 10^6/uL (4.1-5.3); Red Cell Distribution Width 15.3 % (12.1-15.1); White Blood Count 8.7 10^3/uL (4.0-10.0)
[2023-01-29 06:50] LABS: Glucose Point of Care 166 mg/dL (70-110)
[2023-01-29 06:54] LABS: Alanine Aminotransferase 13 U/L (0-33); Albumin Level 3.1 g/dL (3.5-5.2); Alkaline Phosphatase 72 U/L (35-105); Aspartate Amino Transferase 13 U/L (0-32); Blood Urea Nitrogen 7 mg/dL (8-23); Carbon Dioxide 32 mmol/L (22-29); Chloride 94 mmol/L (98-107); Globulin 2.8 g/dL (1.3-4.6); Glucose 159 mg/dL (65-115); Magnesium 1.6 mg/dL (1.7-2.3); Osmolality Calculated 279 mOsm/kg (285-295); Sodium 134 mmol/L (136-145); Total Bilirubin 0.5 mg/dL (0.15-1.2); Total Protein 5.9 g/dL (6.6-8.7)
[2023-01-29] MEDS: lisinopril 5 mg Tablet PO (08:20)
[2023-01-29] MEDS: nicotine 21 mg Patch 1 PATCH TRANSDERMA (08:20)
[2023-01-29] MEDS: aspirin 81 mg EC Tablet PO (08:21)
[2023-01-29] MEDS: atorvastatin 40 mg Tablet 80 MG PO (08:21)
[2023-01-29] MEDS: fluoxetine 20 mg Capsule PO (08:21)
[2023-01-29] MEDS: apixaban 5 mg Tablet PO ×2 (08:25→17:06)
[2023-01-29] MEDS: dilTIAZem ER (24HR) 120 mg Capsule PO (08:25)
[2023-01-29] MEDS: neomycin-poly-bacitracin oint 28 gm 1 APPLIC TOPICAL ×2 (08:26→17:07)
[2023-01-29] MEDS: zinc oxide oint 30 gm 1 APPLIC TOPICAL ×2 (08:26→17:07)
[2023-01-29] MEDS: nystatin cream 30 gm 1 APPLIC TOPICAL ×2 (08:26→17:06)
[2023-01-29] MEDS: insulin lispro 100 unit/1 mL SUBCUT ×4 (08:27→22:05)
[2023-01-29] MEDS: budesonide 0.5 mg/2 mL Neb INHALATION (08:28)
[2023-01-29] MEDS: meropenem 1,000 MG in sodium chloride 0.9% (plus) 50 ML 100 MG IV (11:06)
[2023-01-29 11:36] LABS: Glucose Point of Care 183 mg/dL (70-110)
--- NOTE | 2023-01-29 12:38 | PM.PN ---
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 Patient does not want to go to any rehab She is adamant that she would like to go home Vitals/I&O/Wt Last Vital Signs Temp 97.1 F L 01/29/23 11:46 Pulse 96 01/29/23 11:46 Resp 18 01/29/23 11:46 BP 130/78 01/29/23 11:46 Pulse Ox 96 01/29/23 11:46 O2 Del Method Nasal Cannula 01/29/23 11:46 O2 Flow Rate 4 01/29/23 08:29 01/28/23 01/29/23 01/29/23 22:59 06:59 14:59 Intake Total 292 / 1182 420 / 420 Balance 292 / 1182 420 / 420 Physical Exam Narrative: She is laying supine Currently on room air Awake and alert GCS 15 Nonfocal neuro exam No audible stridor or wheezing S1, S2 Hemodynamically stable Data 01/29/23 04:50 01/29/23 04:50 Micro: Microbiology 01/24/23 02:36 Blood Culture - Final Blood NO GROWTH AFTER 5 DAYS 01/24/23 02:30 Blood Culture - Final Blood NO GROWTH AFTER 5 DAYS A&P Assessment and plan (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 coli ESBL we will request ertapenem 1 g daily for next 10 days she has already received 5 days of IV antibiotics in the hospital Patient does not want to go to rehab She is adamant that she would like to go home, as per the MDR home health/in-home services in place Repeat labs tomorrow I am hoping to discharge her by tomorrow after getting midline placed today Cultures negative, afebrile She is full code Replenish magnesium No active diarrhea today Attestations Medical Necessity Statement*: Discharge tomorrow Diagnoses ESBL E. coli carrier Z22.39 Urinary tract infection due to ESBL Klebsiella N39.0; B96.89 Macrocytosis D75.89 Chronic atrial fibrillation I48.20 Diarrhea R19.7 Acute metabolic encephalopathy G93.41 Pneumonia J18.9 Hypoxia R09.02
--- NOTE | 2023-01-29 13:18 | PC.SOCIAL ---
IMM Updated Updated pt' s family on IMM. No questions voiced. Provided pt a copy. Initialed, dated, & timed copy in chart.
--- NOTE | 2023-01-29 13:30 | PC.NURSE ---
Midline placed to right basilic vein. Pt able to state name and date of . Verbalized understanding of need for midline for 10 days of antibiotics. Informed consent obtained and risks and benefits discussed with patient. Right basilic vein assessed, noted to be 4.5 mm, straight, and apparent best choice for placement. Using MST and sterile technique, basilic vein accessed, but guide wire did not thread. Second attempt made with guide wire advancing successfully. Mid-arm circumference measured 10 cm from right AC 41 cm. Trimmed cath length 10 cm with 0 cm external length noted. Stat-lock used to secure line. Insertion site covered with Biopatch and TSM. Report given to bedside nurse, Tamara. Pt daughter arrived following procedure. Procedure explained along with risks and benefits. Daughter verbalized understanding.
[2023-01-29 16:48] LABS: Glucose Point of Care 209 mg/dL (70-110)
[2023-01-29] MEDS: magnesium oxide 400 mg tablet PO (17:06)
[2023-01-29 21:43] LABS: Glucose Point of Care 195 mg/dL (70-110)
[2023-01-30] VITALS (9 sets, daily range): BP systolic 107–120; BP diastolic 67–79; PULSE 92–107; RESP 16–20; TEMP 36.5–36.8; O2SAT 91–99
[2023-01-30] MEDS: ipratropium-albuterol 3 mL Neb INHALATION ×3 (01:58→13:46)
[2023-01-30 05:29] LABS: Basophils # 0.1 10^3/uL (0.0-0.1); Basophils % 1.6 %; Eosinophils # 0.3 10^3/uL (0.0-0.8); Hematocrit 34.2 % (37.0-47.0); Hemoglobin 10.3 g/dL (11.5-15.3); Lymphocytes # 3.3 10^3/uL (0.8-4.8); Mean Corpuscular HGB Conc 30.1 g/dL (30.0-36.0); Mean Corpuscular Hemoglobin 30.7 pg (28.0-34.0); Mean Corpuscular Volume 102.1 fl (81-99); Mean Platelet Volume 11.9 fL (7.4-10.4); Monocytes # 1.2 10^3/uL (0.2-0.9); Neutrophils # 3.29 10^3/uL (1.8-7.7); Neutrophils % 40.2 %; Nucleated Red Blood Cells % 0 %; Platelet Count 199 10^3/cmm (130-400); Red Blood Count 3.35 10^6/uL (4.1-5.3); Red Cell Distribution Width 15.4 % (12.1-15.1); White Blood Count 8.2 10^3/uL (4.0-10.0)
[2023-01-30 05:59] LABS: Alanine Aminotransferase 11 U/L (0-33); Albumin Level 2.9 g/dL (3.5-5.2); Alkaline Phosphatase 64 U/L (35-105); Anion Gap 13.5 (5-19); Aspartate Amino Transferase 12 U/L (0-32); Blood Urea Nitrogen 6 mg/dL (8-23); Calcium 8.8 mg/dL (8.5-10.5); Carbon Dioxide 30 mmol/L (22-29); Chloride 97 mmol/L (98-107); Globulin 2.5 g/dL (1.3-4.6); Glucose 155 mg/dL (65-115); Osmolality Calculated 283 mOsm/kg (285-295); Potassium 4.5 mmol/L (3.5-5.1); Sodium 136 mmol/L (136-145); Total Bilirubin 0.4 mg/dL (0.15-1.2); Total Protein 5.4 g/dL (6.6-8.7)
[2023-01-30 06:29] LABS: Glucose Point of Care 170 mg/dL (70-110)
[2023-01-30] MEDS: budesonide 0.5 mg/2 mL Neb INHALATION (08:24)
[2023-01-30] MEDS: insulin lispro 100 unit/1 mL SUBCUT ×4 (08:41→22:20)
[2023-01-30] MEDS: nicotine 21 mg Patch 1 PATCH TRANSDERMA (08:42)
[2023-01-30] MEDS: lisinopril 5 mg Tablet PO (08:43)
[2023-01-30] MEDS: dilTIAZem ER (24HR) 120 mg Capsule PO (08:43)
[2023-01-30] MEDS: atorvastatin 40 mg Tablet 80 MG PO (08:43)
[2023-01-30] MEDS: fluoxetine 20 mg Capsule PO (08:43)
[2023-01-30] MEDS: aspirin 81 mg EC Tablet PO (08:43)
[2023-01-30] MEDS: apixaban 5 mg Tablet PO ×2 (08:43→18:08)
[2023-01-30] MEDS: magnesium oxide 400 mg tablet PO ×2 (08:43→18:08)
[2023-01-30] MEDS: zinc oxide oint 30 gm 1 APPLIC TOPICAL ×2 (08:44→18:08)
[2023-01-30] MEDS: neomycin-poly-bacitracin oint 28 gm 1 APPLIC TOPICAL ×2 (08:44→18:09)
[2023-01-30] MEDS: nystatin cream 30 gm 1 APPLIC TOPICAL ×2 (08:44→18:09)
[2023-01-30 11:34] LABS: Glucose Point of Care 150 mg/dL (70-110)
[2023-01-30] MEDS: meropenem 1,000 MG in sodium chloride 0.9% (plus) 50 ML 100 MG IV (12:31)
--- NOTE | 2023-01-30 12:52 | P.PN_ITS ---
Subjective Subjective: PICC line has been placed in right arm on 01/29 Patient will qualify for alf Family is agreeable, I was told by the patient case coordinator that we are looking into alf placement now stridor prior Auth today She is afebrile with no leukocytosis Vitals/I&O/Wt Last Vital Signs Temp 98 F 01/30/23 11:01 Pulse 107 H 01/30/23 11:01 Resp 18 01/30/23 11:01 BP 107/74 01/30/23 11:01 Pulse Ox 93 01/30/23 11:01 O2 Del Method Room Air 01/30/23 11:01 O2 Flow Rate 4 01/30/23 08:24 01/29/23 01/30/23 01/30/23 22:59 06:59 14:59 Intake Total 360 / 1260 480 / 480 Balance 360 / 1260 480 / 480 Physical Exam Narrative: Patient was slightly confused when she woke up this morning However able to answer simple questions Nonfocal neuro exam Fatigued and lethargic Currently on room air Hemodynamically stable Abdomen soft Lower extremity nonpitting edema Data 01/30/23 04:55 01/30/23 04:55 A&P Assessment and plan (1) ESBL E. coli carrier: (2) Macrocytosis: (3) Chronic atrial fibrillation: (4) Hypokalemia: (5) Hypomagnesemia: (6) Acute metabolic encephalopathy: (7) Wound, open, abdominal wall, lateral: Plan Metabolic encephalopathy related to UTI: Resolving ESBL E. coli will require 9 more days of IV antibiotics Will require SNF placement Midline Placed 01/29 Electrolyte imbalance: Resolved Started patient on p.o. magnesium tablet Abdominal wound: No acute exacerbation Continue topical antibiotics Type 2 diabetes continue sliding scale, euglycemic Nicotine dependence, nicotine patch to help with the cravings Full code For DVT prophylaxis continue Eliquis that is her home dose for anticoagulating agent considering history of A-fib Attestations Medical Necessity Statement*: Continue medical management Diagnoses ESBL E. coli carrier Z22.39 Macrocytosis D75.89 Chronic atrial fibrillation I48.20 Hypokalemia E87.6 Hypomagnesemia E83.42 Acute metabolic encephalopathy G93.41 Wound, open, abdominal wall, lateral S31.109A
[2023-01-30 17:07] LABS: Glucose Point of Care 198 mg/dL (70-110)
[2023-01-30 20:56] LABS: Glucose Point of Care 190 mg/dL (70-110)
[2023-01-31] VITALS (7 sets, daily range): BP systolic 104–151; BP diastolic 63–84; PULSE 84–101; RESP 16–18; TEMP 36.4–36.8; O2SAT 93–98
[2023-01-31 05:13] LABS: Basophils # 0.2 10^3/uL (0.0-0.1); Basophils % 1.4 %; Eosinophils # 0.2 10^3/uL (0.0-0.8); Eosinophils % 2.1 %; Hematocrit 34.8 % (37.0-47.0); Hemoglobin 10.6 g/dL (11.5-15.3); Lymphocytes # 3.4 10^3/uL (0.8-4.8); Lymphocytes % 30.5 %; Mean Corpuscular HGB Conc 30.5 g/dL (30.0-36.0); Mean Corpuscular Hemoglobin 30.4 pg (28.0-34.0); Mean Corpuscular Volume 99.7 fl (81-99); Mean Platelet Volume 11.7 fL (7.4-10.4); Monocytes # 1.3 10^3/uL (0.2-0.9); Monocytes % 11.9 %; Neutrophils % 53.1 %; Nucleated Red Blood Cells % 0 %; Platelet Count 198 10^3/cmm (130-400); Red Blood Count 3.49 10^6/uL (4.1-5.3); Red Cell Distribution Width 15.3 % (12.1-15.1); White Blood Count 11.1 10^3/uL (4.0-10.0)
[2023-01-31 05:40] LABS: Alanine Aminotransferase 12 U/L (0-33); Alkaline Phosphatase 72 U/L (35-105); Anion Gap 12.6 (5-19); Aspartate Amino Transferase 16 U/L (0-32); Blood Urea Nitrogen 8 mg/dL (8-23); Calcium 9.1 mg/dL (8.5-10.5); Carbon Dioxide 33 mmol/L (22-29); Chloride 94 mmol/L (98-107); Globulin 2.8 g/dL (1.3-4.6); Glucose 149 mg/dL (65-115); Osmolality Calculated 281 mOsm/kg (285-295); Potassium 4.6 mmol/L (3.5-5.1); Sodium 135 mmol/L (136-145); Total Bilirubin 0.4 mg/dL (0.15-1.2); Total Protein 5.8 g/dL (6.6-8.7)
[2023-01-31 06:29] LABS: Glucose Point of Care 148 mg/dL (70-110)
[2023-01-31 07:27] LABS: Glucose Point of Care 164 mg/dL (70-110)
[2023-01-31] MEDS: insulin lispro 100 unit/1 mL SUBCUT ×4 (07:36→21:36)
[2023-01-31] MEDS: dilTIAZem ER (24HR) 120 mg Capsule PO (09:09)
[2023-01-31] MEDS: apixaban 5 mg Tablet PO ×2 (09:12→17:56)
[2023-01-31] MEDS: fluoxetine 20 mg Capsule PO (09:13)
[2023-01-31] MEDS: atorvastatin 40 mg Tablet 80 MG PO (09:13)
[2023-01-31] MEDS: magnesium oxide 400 mg tablet PO ×2 (09:13→17:56)
[2023-01-31] MEDS: zinc oxide oint 30 gm 1 APPLIC TOPICAL ×2 (09:14→17:57)
[2023-01-31] MEDS: nicotine 21 mg Patch 1 PATCH TRANSDERMA (09:14)
[2023-01-31] MEDS: nystatin cream 30 gm 1 APPLIC TOPICAL ×2 (09:16→17:57)
[2023-01-31] MEDS: neomycin-poly-bacitracin oint 28 gm 1 APPLIC TOPICAL ×2 (09:17→17:57)
[2023-01-31] MEDS: lisinopril 5 mg Tablet PO (09:18)
[2023-01-31] MEDS: meropenem 1,000 MG in sodium chloride 0.9% (plus) 50 ML 100 MG IV (10:44)
--- NOTE | 2023-01-31 11:09 | PM.PN ---
Subjective Subjective: Patient is awaiting placement No fever Leukocytosis 11,000 No overnight events Patient does not endorse new complaints She is getting skin care by the nursing staff Vitals/I&O/Wt Last Vital Signs Temp 98.1 F 01/31/23 07:42 Pulse 97 01/31/23 07:42 Resp 18 01/31/23 07:42 BP 104/63 01/31/23 07:42 Pulse Ox 94 01/31/23 07:42 O2 Del Method Room Air 01/31/23 07:42 O2 Flow Rate 4 01/31/23 04:00 01/30/23 01/31/23 01/31/23 22:59 06:59 14:59 Intake Total 530 / 1490 240 / 240 Balance 530 / 1490 240 / 240 Physical Exam Narrative: She is laying supine Currently on room air Abdominal wound seems to be healing Sacral area and upper medial thigh area ulcer covered with zinc oxide and barrier cream Nonpitting edema of legs Abdomen soft Nonfocal neuro exam S1, S2 Data 01/31/23 04:34 01/31/23 04:34 A&P Assessment and plan (1) Wound, open, abdominal wall, lateral: (2) ESBL E. coli carrier: (3) Macrocytosis: (4) Chronic atrial fibrillation: (5) Tobacco dependency: (6) Pneumonia: (7) Hypoxia: (8) Skin rash: (9) Diarrhea: (10) Hypomagnesemia: (11) Hypokalemia: Plan Left lower lobe pneumonia: Improving Hypoxia: Patient is stating that she uses 3 to 4 L of oxygen at home but at this point she is on room air doing well Diarrhea: Resolved C. difficile panel pending Afebrile E. coli ESBL patient will get prolonged IV antibiotics Plan is to send her to skilled nursing Full code Skin rash continue zinc with barrier cream Abdominal wound seems to be healing Nicotine dependence Noncompliant Consistent carb diet Continue Eliquis Attestations Medical Necessity Statement*: Awaiting placement Diagnoses Wound, open, abdominal wall, lateral S31.109A ESBL E. coli carrier Z22.39 Macrocytosis D75.89 Chronic atrial fibrillation I48.20 Tobacco dependency F17.200 Pneumonia J18.9 Hypoxia R09.02 Skin rash R21 Diarrhea R19.7 Hypomagnesemia E83.42 Hypokalemia E87.6
[2023-01-31 11:12] LABS: Glucose Point of Care 306 mg/dL (70-110)
[2023-01-31] MEDS: acetaminophen 325 mg Tablet 650 MG PO (11:19)
--- NOTE | 2023-01-31 14:19 | PC.SOCIAL ---
IMM Updated Updated pt & pt' s family on IMM. No questions voiced. Provided pt a copy. Initialed, dated, & timed copy in chart.
[2023-01-31] MEDS: ipratropium-albuterol 3 mL Neb INHALATION (14:52)
[2023-01-31 16:57] LABS: Glucose Point of Care 187 mg/dL (70-110)
[2023-01-31 21:00] LABS: Glucose Point of Care 213 mg/dL (70-110)
[2023-02-01] VITALS (11 sets, daily range): BP systolic 99–135; BP diastolic 66–81; PULSE 86–105; RESP 16–19; TEMP 35.9–37.1; O2SAT 91–96
[2023-02-01] MEDS: acetaminophen 325 mg Tablet 650 MG PO (03:47)
[2023-02-01 07:03] LABS: Glucose Point of Care 172 mg/dL (70-110)
[2023-02-01] MEDS: ipratropium-albuterol 3 mL Neb INHALATION ×3 (07:45→20:20)
[2023-02-01] MEDS: budesonide 0.5 mg/2 mL Neb INHALATION ×2 (07:45→20:20)
[2023-02-01] MEDS: magnesium oxide 400 mg tablet PO ×2 (08:26→18:08)
[2023-02-01] MEDS: insulin lispro 100 unit/1 mL SUBCUT ×4 (08:26→21:46)
[2023-02-01] MEDS: dilTIAZem ER (24HR) 120 mg Capsule PO (08:27)
[2023-02-01] MEDS: fluoxetine 20 mg Capsule PO (08:27)
[2023-02-01] MEDS: nicotine 21 mg Patch 1 PATCH TRANSDERMA (08:27)
[2023-02-01] MEDS: lisinopril 5 mg Tablet PO (08:27)
[2023-02-01] MEDS: atorvastatin 40 mg Tablet 80 MG PO (08:27)
[2023-02-01] MEDS: apixaban 5 mg Tablet PO ×2 (08:27→18:08)
[2023-02-01] MEDS: nystatin cream 30 gm 1 APPLIC TOPICAL ×2 (08:28→18:11)
[2023-02-01] MEDS: neomycin-poly-bacitracin oint 28 gm 1 APPLIC TOPICAL ×2 (08:28→18:11)
[2023-02-01] MEDS: zinc oxide oint 30 gm 1 APPLIC TOPICAL ×2 (08:28→18:11)
--- NOTE | 2023-02-01 11:03 | P.PN_ITS ---
Subjective Subjective: C. difficile negative Patient is agreeable to go to [facility] Son is at the bedside No new complaints Patient does look fatigued Able to tell me her name name of her son she does suffer from word finding difficulty history of stroke in the past, vascular dementia? Vitals/I&O/Wt Last Vital Signs Temp 98.7 F 02/01/23 08:00 Pulse 99 02/01/23 08:00 Resp 16 02/01/23 08:00 BP 129/72 02/01/23 08:00 Pulse Ox 93 02/01/23 08:00 O2 Del Method Nasal Cannula 02/01/23 07:45 O2 Flow Rate 3 02/01/23 07:45 01/31/23 02/01/23 02/01/23 22:59 06:59 14:59 Intake Total 50 / 530 360 / 360 Balance 50 / 530 360 / 360 Physical Exam Narrative: Patient laying supine Rash seems to be getting better abdominal umbilical area and medial thigh and back area covered with zinc oxide, macerated skin seems to be getting better S1, S2 Currently on 3 L nasal cannula Son at the bedside No new focal deficit Word finding difficulty Patient is awake and alert oriented to time place and person Abdomen soft Data 01/31/23 04:34 01/31/23 04:34 Micro: Microbiology 01/31/23 02:24 C.difficile Toxin B Gene (PCR) - Final Stool A&P Assessment and plan (1) Skin rash: (2) Wound, open, abdominal wall, lateral: (3) ESBL E. coli carrier: (4) Macrocytosis: (5) Chronic atrial fibrillation: (6) Tobacco dependency: (7) Hypokalemia: (8) Hypomagnesemia: (9) Diarrhea: (10) Hypoxia: (11) Pneumonia: (12) Acute metabolic encephalopathy: Plan Left lower lobe pneumonia Patient at baseline oxygen requirement of 3 L which not worsened Hypoxia has not worsened Diarrhea resolved C. difficile ruled out Patient is afebrile Patient will need 7 more days of IV antibiotics at the [facility] Son is at the bedside Concern for vascular dementia, patient does have word finding difficulty I do not appreciate any focal deficit Awake alert oriented x3 GCS 15 Skin rash: Continue zinc oxide and barrier cream with antibiotics Consistent carb diet Continue Eliquis which she takes for A-fib Full code Attestations Medical Necessity Statement*: Awaiting placement Diagnoses Skin rash R21 Wound, open, abdominal wall, lateral S31.109A ESBL E. coli carrier Z22.39 Macrocytosis D75.89 Chronic atrial fibrillation I48.20 Tobacco dependency F17.200 Hypokalemia E87.6 Hypomagnesemia E83.42 Diarrhea R19.7 Hypoxia R09.02 Pneumonia J18.9 Acute metabolic encephalopathy G93.41
[2023-02-01 12:09] LABS: Glucose Point of Care 245 mg/dL (70-110)
[2023-02-01] MEDS: meropenem 1,000 MG in sodium chloride 0.9% (plus) 50 ML 100 MG IV ×2 (16:18→21:45)
[2023-02-01 18:02] LABS: Glucose Point of Care 325 mg/dL (70-110)
[2023-02-01 21:12] LABS: Glucose Point of Care 209 mg/dL (70-110)
[2023-02-01] MEDS: insulin glargine 100 units/1 mL 20 UNIT SUBCUT (21:46)
[2023-02-02] VITALS (10 sets, daily range): BP systolic 97–115; BP diastolic 54–63; PULSE 68–110; RESP 14–18; TEMP 36.3–36.9; O2SAT 92–96
[2023-02-02] MEDS: ipratropium-albuterol 3 mL Neb INHALATION ×3 (02:39→13:37)
[2023-02-02] MEDS: acetaminophen 325 mg Tablet 650 MG PO ×2 (03:06→13:31)
[2023-02-02] MEDS: meropenem 1,000 MG in sodium chloride 0.9% (plus) 50 ML 100 MG IV ×2 (04:22→13:28)
[2023-02-02 06:44] LABS: Glucose Point of Care 142 mg/dL (70-110)
[2023-02-02] MEDS: budesonide 0.5 mg/2 mL Neb INHALATION (08:26)
[2023-02-02] MEDS: fluoxetine 20 mg Capsule PO (09:30)
[2023-02-02] MEDS: magnesium oxide 400 mg tablet PO ×2 (09:30→17:04)
[2023-02-02] MEDS: apixaban 5 mg Tablet PO ×2 (09:30→17:04)
[2023-02-02] MEDS: lisinopril 5 mg Tablet PO (09:30)
[2023-02-02] MEDS: atorvastatin 40 mg Tablet 80 MG PO (09:30)
[2023-02-02] MEDS: dilTIAZem ER (24HR) 120 mg Capsule PO (09:30)
[2023-02-02] MEDS: nicotine 21 mg Patch 1 PATCH TRANSDERMA (09:31)
[2023-02-02] MEDS: insulin lispro 100 unit/1 mL SUBCUT ×3 (09:31→17:04)
[2023-02-02] MEDS: nystatin cream 30 gm 1 APPLIC TOPICAL ×2 (09:32→17:06)
[2023-02-02] MEDS: zinc oxide oint 30 gm 1 APPLIC TOPICAL ×2 (09:37→17:06)
[2023-02-02] MEDS: neomycin-poly-bacitracin oint 28 gm 1 APPLIC TOPICAL ×2 (09:37→17:05)
--- NOTE | 2023-02-02 10:57 | PM.DCS ---
Discharge Providers Date of Admission: 01/24/23 01:50 Date of Discharge: February 02, 2023 Attending Provider at Admission: Trent Gustafson MD Attending Provider at Discharge: Jacob Garza MD Primary Care Provider: Elaine Topete Diagnoses at Discharge Discharge Diagnosis (1) Skin rash: Status: Acute (2) Wound, open, abdominal wall, lateral: Status: Acute (3) ESBL E. coli carrier: Status: Acute (4) Macrocytosis: Status: Acute (5) Chronic atrial fibrillation: Status: Acute (6) Tobacco dependency: Status: Acute (7) Hypokalemia: Status: Acute (8) Hypomagnesemia: Status: Acute (9) Diarrhea: Status: Acute (10) Hypoxia: Status: Acute (11) Pneumonia: Status: Acute (12) Acute metabolic encephalopathy: Status: Acute Reason for Visit Reason for Visit: [facility] Hospital Course Hospital Course Purvi Sparks is a 77 year old female with diabetes, atrial fibrillation, hypertension, history of TIA whose family called EMS secondary to confusion. Patient was diagnosed with acute metabolic encephalopathy related to UTI, cultures positive for ESBL, patient was put on meropenem in the hospital and to finish 14 days of IV carbapenem she was given ertapenem at the time of discharge, midline was placed in her right arm Patient seems to be very withdrawn, initially was refusing to go to SNF/rehab however with placement of midline she agreed to go to the rehab/SNF for the duration of antibiotic She remained afebrile no significant leukocytosis, she has macrocytosis with normal B12 folate and TSH. She has chronic A-fib for which she takes Eliquis, electrolytes were replenished, C. difficile was ruled out. At baseline she uses 3 to 4 L of oxygen. She was given antibiotics for left lower lobe pneumonia as well She seems to be suffering from vascular dementia with word finding difficulty however no new focal deficit noted during hospitalization CODE STATUS: Full code Physical Exam Narrative: Patient is awake and alert Withdrawn Son is at the bedside No new focal deficit Word finding difficulty Sacral medial thigh area rash seems to be getting better Umbilical site wound healing Currently on 3 L Discharge Data Studies Completed and Pending Completed Studies During Hospitalization Category Date Time Status CT head wo con* [id number] Stat Cat Scan 01/23/23 23:44 Completed XR chest 1V portable [id number] Routine Exams 01/26/23 06:00 Completed XR chest 1V portable [id number] Stat Exams 01/23/23 23:44 Completed Pending at discharge Category Date Time Status Sputum Culture and Gram Stain Routine Lab 01/24/23 01:56 Uncollected Radiology Impressions Head CT 01/23/23 23:44 IMPRESSION: 1. No acute intracranial hemorrhage or mass effect. 2. 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 3. No definite acute infarct by CT, see above. 4. Other findings discussed above. Chest X-Ray 01/26/23 06:00 IMPRESSION: 1. Left lower lobe infiltrate unchanged. No new significant finding. Laboratory Results WBC 11.1 10^3/uL (4.0-10.0) H 01/31/23 04:34 RBC 3.49 10^6/uL (4.1-5.3) L 01/31/23 04:34 Hgb 10.6 g/dL (11.5-15.3) L 01/31/23 04:34 Hct 34.8 % (37.0-47.0) L 01/31/23 04:34 MCV 99.7 fl (81-99) H 01/31/23 04:34 MCH 30.4 pg (28.0-34.0) 01/31/23 04:34 MCHC 30.5 g/dL (30.0-36.0) 01/31/23 04:34 RDW 15.3 % (12.1-15.1) H 01/31/23 04:34 Plt Count 198 10^3/cmm (130-400) 01/31/23 04:34 MPV 11.7 fL (7.4-10.4) H 01/31/23 04:34 Neut % (Auto) 53.1 % 01/31/23 04:34 Lymph % (Auto) 30.5 % 01/31/23 04:34 [place] % (Auto) 11.9 % 01/31/23 04:34 Eos % (Auto) 2.1 % 01/31/23 04:34 Baso % (Auto) 1.4 % 01/31/23 04:34 Neut # (Auto) 5.90 10^3/uL (1.8-7.7) 01/31/23 04:34 Lymph # (Auto) 3.4 10^3/uL (0.8-4.8) 01/31/23 04:34 [place] # (Auto) 1.3 10^3/uL (0.2-0.9) H 01/31/23 04:34 Eos # (Auto) 0.2 10^3/uL (0.0-0.8) 01/31/23 04:34 Baso # (Auto) 0.2 10^3/uL (0.0-0.1) H 01/31/23 04:34 Nucleated RBC % (auto) 0 % 01/31/23 04:34 Nucleated RBCs # 0.0 /100WBC 01/31/23 04:34 PT 15.40 SECONDS (12.1-14.9) H 01/24/23 00:34 INR 1.18 (0.8-1.2) 01/24/23 00:34 Specimen Type Arterial 01/23/23 00:30 Sample Site Left brachial 01/23/23 00:30 O2 Sat Pulse Oximetry 92.4 % 01/23/23 00:30 ABG pH 7.43 (7.35-7.45) 01/23/23 00:30 ABG pCO2 55.6 mmHg (35-45) H 01/23/23 00:30 ABG pO2 65.3 mmHg (80.0-100.0) L 01/23/23 00:30 ABG HCO3 35.7 mmol/L (22-26) H 01/23/23 00:30 ABG Base Excess 11.4 mmol/L (-2.0-2.0) H 01/23/23 00:30 Monico Test Na 01/23/23 00:30 Hematocrit 35.7 % (37-47) L 01/23/23 00:30 O2 Delivery Device Nc 01/23/23 00:30 O2 Liters/Min 3.5 % 01/23/23 00:30 Specimen Drawn By [email or web address] 01/23/23 00:30 [employer] ID Anonymous 01/23/23 00:30 Sodium 135 mmol/L (136-145) L 01/31/23 04:34 Potassium 4.6 mmol/L (3.5-5.1) 01/31/23 04:34 Chloride 94 mmol/L (98-107) L 01/31/23 04:34 Carbon Dioxide 33 mmol/L (22-29) H 01/31/23 04:34 Anion Gap 12.6 (5-19) 01/31/23 04:34 BUN 8 mg/dL (8-23) 01/31/23 04:34 Creatinine 0.3 mg/dL (0.5-0.9) L 01/31/23 04:34 GFR Calculation Not Reportable 01/31/23 04:34 Glucose 149 mg/dL (65-115) H 01/31/23 04:34 POC Glucose 142 mg/dL (70-110) H 02/02/23 06:34 Calculated Osmolality 281 mOsm/kg (285-295) L 01/31/23 04:34 Calcium 9.1 mg/dL (8.5-10.5) 01/31/23 04:34 Magnesium 1.6 mg/dL (1.7-2.3) L 01/29/23 04:50 Total Bilirubin 0.4 mg/dL (0.15-1.2) 01/31/23 04:34 AST 16 U/L (0-32) 01/31/23 04:34 ALT 12 U/L (0-33) 01/31/23 04:34 Alkaline Phosphatase 72 U/L (35-105) 01/31/23 04:34 Ammonia 37 umol/L (11-51) 01/24/23 00:34 Creatine Kinase 38 U/L (26-192) 01/24/23 00:34 NT-Pro-B Natriuret Pep 469 pg/mL (0-450) H 01/24/23 00:34 Total Protein 5.8 g/dL (6.6-8.7) L 01/31/23 04:34 Albumin 3.0 g/dL (3.5-5.2) L 01/31/23 04:34 Globulin 2.8 g/dL (1.3-4.6) 01/31/23 04:34 Vitamin B12 924 pg/mL (232-1245) 01/24/23 00:34 Folate 6.1 ng/mL (4.8-37.3) 01/24/23 00:34 TSH 2.14 uIU/mL (0.27-4.20) 01/24/23 00:34 Urine Color Yellow (Yellow) 01/25/23 06:50 Urine Appearance Cloudy (CLEAR) A 01/25/23 06:50 Urine pH 7 (5-7) 01/25/23 06:50 Ur Specific Roy 1.015 (1.005-1.030) 01/25/23 06:50 Urine Protein Neg (Negative) 01/25/23 06:50 Urine Glucose (UA) Norm (Normal) 01/25/23 06:50 Urine Ketones Negative (Negative) 01/25/23 06:50 Urine Blood Neg (Negative) 01/25/23 06:50 Urine Nitrate Negative (Negative) 01/25/23 06:50 Urine Bilirubin Neg (Negative) 01/25/23 06:50 Prot Sulfosalicylic Acd Cancelled 01/24/23 00:30 Urine Urobilinogen Norm mg/dL (Negative) 01/25/23 06:50 Ur Leukocyte Esterase 2+ (Negative) H 01/25/23 06:50 Urine RBC 0-4 /hpf (0-2) H 01/25/23 06:50 Urine WBC 15-25 /hpf (0-5) H 01/25/23 06:50 Ur Squamous Epith Cells 0-4 /hpf (0-5) H 01/25/23 06:50 Amorphous Sediment Not Reportable 01/25/23 06:50 Urine Bacteria 2+ /hpf (NONE) H 01/25/23 06:50 Hyaline Casts Rare /lpf 01/25/23 06:50 Urine Mucus 1+ /hpf 01/25/23 06:50 Coronavirus 229E (PCR) Not detected (NOT DETECT) 01/24/23 04:02 SARS-CoV-2 (PCR) Not detected (NOT DETECT) 01/24/23 04:02 Vitals Last Vital Signs Temp 98 F 02/02/23 07:04 Pulse 96 02/02/23 08:38 Resp 18 02/02/23 08:00 BP 110/55 02/02/23 07:04 Pulse Ox 96 02/02/23 08:00 O2 Del Method Nasal Cannula 02/02/23 08:00 O2 Flow Rate 3 02/02/23 08:00 Discharge Plan Discharge Patient Disposition: Xfer SNF Condition: Stable Prescriptions: New lisinopril 5 mg Tablet 5 mg PO DAILY Qty: 30 0RF Triple Antibiotic 3.5mg-400 unit- 5,000 unit/gram Ointment 1 applic topical BID Qty: 14 0RF magnesium oxide 400 mg (241.3 mg magnesium) Tablet 400 mg PO BID Qty: 6 0RF ertapenem 1 gram recon soln 1 g IV DAILY 7 Days Qty: 10 0RF Trelegy Ellipta 100-62.5-25 mcg blister with device 1 inh inhalation DAILY Qty: 60 0RF zinc oxide 20 % Ointment 1 applic topical BID Qty: 28 0RF Continued diltiazem HCl [Cartia XT] 120 mg capsule,extended release 24hr 120 mg PO DAILY ropinirole 1 mg Tablet 1 mg PO DAILY Eliquis 5 mg Tablet 5 mg PO BID docusate sodium [Stool Softener] 100 mg Tablet 100 mg PO DAILY rosuvastatin 10 mg Tablet 20 mg PO DAILY Qty: 0 0RF ondansetron HCl 4 mg Tablet 4 mg PO Q6H PRN (Reason: Nausea) Discontinued lisinopril 20 mg Tablet 20 mg PO DAILY Discharge Orders: Discharge Order (Routine); Ordered 02/02/23 Ordered By: Jacob Garza Referrals: [facility] [place] [Outside] Elaine Topete PA [Primary Care Provider] - Patient Instructions: Hyponatremia (ED), Benzodiazepine Use Disorder (ED), Dementia (ED), Non-diabetic Hypoglycemia (ED), Hypoglycemia in a Person with Diabetes (ED), Concussion (ED), Alcohol Intoxication (ED), Subarachnoid Hemorrhage (GEN), Altered Mental Status (ED), Opioid Safety Discharge Attestations Time Spent in Discharge Care*: greater than 30 min Status at Discharge: Cognitive status at discharge: cognitively intact, Behavioral status at discharge: cooperative, Quality Metrics Clinical Quality Measures [ No reported AMI, CVA or VTE this stay] Coding Level of Care Code Acute Code for Chg Fwd Diagnoses Skin rash R21 Wound, open, abdominal wall, lateral S31.109A ESBL E. coli carrier Z22.39 Macrocytosis D75.89 Chronic atrial fibrillation I48.20 Tobacco dependency F17.200 Hypokalemia E87.6 Hypomagnesemia E83.42 Diarrhea R19.7 Hypoxia R09.02 Pneumonia J18.9 Acute metabolic encephalopathy G93.41
--- NOTE | 2023-02-02 11:03 | PM.PN ---
Subjective Subjective: Awaiting placement No overnight events Son at the bedside Sacral medial thigh and umbilical site wounds healing Patient was examined in front of a nurse Vitals/I&O/Wt Last Vital Signs Temp 98 F 02/02/23 07:04 Pulse 96 02/02/23 08:38 Resp 18 02/02/23 08:00 BP 110/55 02/02/23 07:04 Pulse Ox 96 02/02/23 08:00 O2 Del Method Nasal Cannula 02/02/23 08:00 O2 Flow Rate 3 02/02/23 08:00 02/01/23 02/02/23 02/02/23 22:59 06:59 14:59 Intake Total 290 / 890 100 / 990 360 / 360 Balance 290 / 890 100 / 990 360 / 360 Physical Exam Narrative: Awake and alert GCS 15 Nonfocal neuro exam Abdomen soft Sacral medial thigh area ulcer seem to be well-healing Abdominal wound healing as well Abdomen soft No new focal deficit Currently on 3 L No acute respiratory distress S1, S2 variable Data 01/31/23 04:34 01/31/23 04:34 A&P Assessment and plan (1) Skin rash: (2) Wound, open, abdominal wall, lateral: (3) ESBL E. coli carrier: (4) Macrocytosis: (5) Chronic atrial fibrillation: (6) Tobacco dependency: (7) Hypokalemia: (8) Hypomagnesemia: (9) Diarrhea: (10) Hypoxia: (11) Pneumonia: (12) Acute metabolic encephalopathy: Plan Medically cleared to be discharged once accepted She will get IV ertapenem dose at the correction She does have word finding difficulty considered related to her dementia No new stroke related changes She has a right arm midline Chronic hypoxia 3 L no acute worsening No need to repeat lab, blood cultures negative Her wounds are healing well continue zinc oxide, no active signs of infection Attestations Medical Necessity Statement*: Awaiting placement Diagnoses Skin rash R21 Wound, open, abdominal wall, lateral S31.109A ESBL E. coli carrier Z22.39 Macrocytosis D75.89 Chronic atrial fibrillation I48.20 Tobacco dependency F17.200 Hypokalemia E87.6 Hypomagnesemia E83.42 Diarrhea R19.7 Hypoxia R09.02 Pneumonia J18.9 Acute metabolic encephalopathy G93.41
--- NOTE | 2023-02-02 11:25 | PC.SOCIAL ---
IMM Update pg 2 of IMM updated and reviewed w/ patient and her son. Copy provided and copy dated, initialed and placed in chart.
[2023-02-02 11:34] LABS: Glucose Point of Care 178 mg/dL (70-110)
[2023-02-02 14:18] LABS: SARS Covid-2 Antigen negative (Negative)
[2023-02-02 16:45] LABS: Glucose Point of Care 146 mg/dL (70-110)
== END 2023-02-02 17:30 | disposition skilled nursing facility (03) | DRG 190 ==
LOC: ER 23:56 → MEDSURG 01-24 02:28
PROVIDERS: Internal Medicine; Admitting Provider Internal Medicine; Emergency Provider Emergency Medicine; PCP Physician Assistant; Visit Provider Internal Medicine
DX: J44.0 Chronic obstructive pulmonary disease with (acute) lower respiratory infection (principal); G93.41 Metabolic encephalopathy; J18.9 Pneumonia, unspecified organism; I48.20 Chronic atrial fibrillation, unspecified; Z16.12 Extended spectrum beta lactamase (ESBL) resistance; N39.0 Urinary tract infection, site not specified; Z75.1 Person awaiting admission to adequate facility elsewhere; E87.6 Hypokalemia; E83.42 Hypomagnesemia; E11.9 Type 2 diabetes mellitus without complications; I10 Essential (primary) hypertension; Z86.73 Personal history of transient ischemic attack (TIA), and cerebral infarction without residual deficits; B96.20 Unspecified Escherichia coli [E. coli] as the cause of diseases classified elsewhere; D75.89 Other specified diseases of blood and blood-forming organs; Z99.81 Dependence on supplemental oxygen; F01.50 Vascular dementia, unspecified severity, without behavioral disturbance, psychotic disturbance, mood disturbance, and anxiety; Z79.01 Long term (current) use of anticoagulants; B37.31 Acute candidiasis of vulva and vagina; R19.7 Diarrhea, unspecified; G25.81 Restless legs syndrome; E66.01 Morbid (severe) obesity due to excess calories; Z86.14 Personal history of Methicillin resistant Staphylococcus aureus infection; K21.9 Gastro-esophageal reflux disease without esophagitis; M48.061 Spinal stenosis, lumbar region without neurogenic claudication; F17.210 Nicotine dependence, cigarettes, uncomplicated; I25.10 Atherosclerotic heart disease of native coronary artery without angina pectoris; Z87.440 Personal history of urinary (tract) infections; T21.22XA Burn of second degree of abdominal wall, initial encounter; X08.8XXA Exposure to other specified smoke, fire and flames, initial encounter
CPT/HCPCS: 36415; 36416; 36573; 36600; 51702; 70450; 71045; 80053; 81001; 82140; 82550; 82607; 82746; 82803; 82962; 83735; 83880; 84443; 85025; 85610; 87040; 87077; 87086; 87186; 87426; 87493; 87635; 93005; 94640; 96365; 96372; 97161; 97165; 97530; 99285; C1751; J0456; J0696; J1815; J2185; J3475; J7030; J7050; J7626

== ENCOUNTER 2023-08-03 14:37 | Outpatient (CLI) | payer MEDICARE, MEDICAID, SELFPAY ==
--- NOTE | 2023-08-03 14:47 | CT_ITS ---
WS: [id number] NONCONTRAST CT RIGHT LOWER EXTREMITY. TECHNIQUE: Noncontrast CT RIGHT lower extremity with coronal and sagittal reformatted images. CLINICAL INFORMATION: ?TIBIAL FX COMPARISON: None. DLP: 1311.[address] scans at [facility] use at least one of these dose optimization techniques: automated e xposure control; mA and/or kV adjustment per patient size (includes targeted exams where dose is matc hed to clinical indication); or iterative reconstruction. FINDINGS: No prior comparisons. Marked osteopenia. Dense vascular calcification. Advanced tricompartmental arthritis RIGHT knee with hypertrophic changes along the joint line. Joint space narrowing worse in the medial joint compartmen t with [id number] articulation. Chronic appearing fracture involving the distal femur with extensiv e surrounding callus formation. Impaction with slight anterior angulation of the femoral shaft in rel ation to the distal fragment. Persistent lucency and widening at the fracture site. Additional superi mposed oblique fracture involving the distal femoral diametaphysis appears acute. No displacement in this area. Chronic healed fracture of the proximal fibula shaft with callus formation. No definite visualized ti bial plateau fractures. Hypertrophic patella. Small suprapatellar effusion. Chronic well-corticated a vulsion fracture about the medial malleolus. Dorsal and plantar calcaneal spurring. Advanced joint ar thritis involving the ankle mortise. Talar dome appears intact. Advanced demineralization involving t he foot. Limited evaluation of the foot. Soft tissue edema lower leg and dorsal foot soft tissues. IMPRESSION: 1. Advanced osteoporosis limits sensitivity for fracture detection. 2. Chronic appearing ununited fracture involving the distal femoral shaft with abundant surrounding callus formation with persistent lucency at the fracture site. 3. Additional superimposed hairline oblique fracture involving the RIGHT femoral diametaphysis which has a more recent acute appearance. 4. Small suprapatellar effusion. 5. Chronic appearing fracture about the proximal fibula shaft with callus formation. 6. No definite visualized tibia fractures. 7. Limited evaluation of the foot due to positioning and [id number]. This could be further evalua bhaskar with dedicated foot CT if specific concern
== END 2023-08-03 14:38 | disposition home or self-care (01) ==
LOC: RAD 14:40
PROVIDERS: PCP Physician Assistant; Visit Provider Family Medicine
DX: M80.051K Age-related osteoporosis with current pathological fracture, right femur, subsequent encounter for fracture with nonunion (principal); M80.051A Age-related osteoporosis with current pathological fracture, right femur, initial encounter for fracture; M25.461 Effusion, right knee; Z87.310 Personal history of (healed) osteoporosis fracture
CPT/HCPCS: 73700

== ENCOUNTER 2023-08-14 15:54 | Inpatient (IN) | payer MEDICARE, MEDICAID, SELFPAY ==
[2023-08-14] VITALS (18 sets, daily range): BP systolic 114–168; BP diastolic 59–107; PULSE 96–115; RESP 16–19; TEMP 35.7–36.9; O2SAT 94–100; BMI 42.9
--- NOTE | 2023-08-14 16:09 | ED_ITS ---
HPI - Recheck/Abnormal Lab/Rx 2 General: Chief Complaint: ER Hold Stated Complaint: Low HGB Time Seen by Provider: 08/14/23 15:55 Source: patient Mode of arrival: EMS History of Present Illness: 78-year-old female who presents to the e mergency room with complaints of abnormal labs. Patient states she is feeling fine they told her labs were abnormal liver done earlier in the day and she was brought to the emergency room she denies chest pain or abdominal pain. She is morbidly obese is a history of COPD CHF chronic atrial fibrillation for which she is on oral anticoagulation. She denies recent fever sweats chills nausea vomiting diarrhea no hematochezia melena hematemesis or coffee-ground emesis. 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 difficile colitis Gastroesophageal reflux disease Hyperlipidemia On apixaban therapy History of ESBL E. coli infection History of MRSA infection History of small bowel obstruction Medically managed to date Diabetes mellitus Coronary artery disease HTN (hypertension), malignant COPD (chronic obstructive pulmonary disease) Morbid obesity Surgical History History of colonoscopy (~2013) History of bladder suspension procedure History of orthopedic surgery Wrist and left leg History of cholecystectomy History of tubal ligation History of appendectomy Family History Other CAD (coronary artery disease) Cancer Social History (Reviewed 08/16/23 @ 06:30 by ROSA Ardon Smoking and tobacco/nicotine status: current every day tobacco/nicotine user cigarettes Packs smoked per day: 0.5 Alcohol intake: never Substance/Drug Use: unknown Caregiver/support person: Yes (Son as well as some home health) Housing: Snf Physical Exam 2 Const: GENERAL APPEARANCE: cooperative and comfortable NUTRITIONAL APPEARANCE: obese morbidly obese ORIENTATION/CONSCIOUSNESS: Yes awake, Yes oriented to person, Yes oriented to place and Yes oriented to time HENMT: COMMON NORMALS: normocephalic, atraumatic and hearing grossly normal bilaterally HEAD & SCALP: normocephalic and atraumatic Resp: COMMON NORMALS: normal respiratory effort, No retractions, No use of accessory muscles and clear to auscultation bilaterally AUSCULTATION: clear to auscultation bilaterally Cardio: COMMON NORMALS: regular rate and No murmurs present (Cardio) RATE: regular rate RHYTHM: abnormal rhythm irregularly irregular GI: COMMON NORMALS: Soft to palpation and No hepatosplenomegaly present A USCULTATION: Yes normoactive bowel sounds PALPATION: Yes Soft to palpation, No Tenderness to palpation present (GI), No Guarding due to palpation present (GI) and Yes No hepatosplenomegaly present Extremity: COMMON NORMALS: normal to inspection, capillary refill normal, no clubbing, cyanosis or edema, no calf tenderness and no pedal edema Neuro: SENSORIUM/ORIENTATION: Yes oriented to person, Yes oriented to place and Yes oriented to time Skin: COMMON NORMALS: no rashes or lesions noted GENERAL SKIN EXAM: no rashes or lesions noted Course 2 Vital Signs: Vital signs: Vital Signs Temperature 98.6 F 08/16/23 04:34 Pulse Rate 100 08/16/23 04:34 Respiratory Rate 18 08/16/23 04:34 Blood Pressure 122/75 08/16/23 04:34 Pulse Oximetry 94 08/16/23 04:34 Oxygen Delivery Me thod Nasal Cannula 08/15/23 16:00 Oxygen Flow Rate 3 08/15/23 20:00 MDM - Recheck/Abnormal Lab/Rx Medical Decision Making Patient anemic with mild hyponatremia and hyperkalemia. She is mildly fluid overloaded given her overall health she will probably need to be monitored for blood transfusion. May also require little bit of diuresis discussed with hospitalist and family place patient in observation Medical Records I reviewed the patient's medical records. Lab Data I reviewed the patient's lab results. 08/16/23 04:23 08/16/23 04:23 Laboratory Results WBC 16.99 10^3/uL (3.29-11.43) H 08/14/23 16:14 RBC 3.63 10^6/uL (3.85-5.65) L 08/14/23 16:14 Hgb 7.10 g/dL (11.27-16.99) L 08/14/23 16:14 Hct 26.3 % (36-47) L 08/14/23 16:14 MCV 72.5 fl (85-98) L 08/14/23 16:14 MCH 19.6 pg (27-33) L 08/14/23 16:14 MCHC 27.0 g/dL (30-55) L 08/14/23 16:14 RDW 18.6 % (12.1-15.1) H 08/14/23 16:14 Plt Count 418 10^3/cmm (157-399) H 08/14/23 16:14 MPV 9.7 fL (7.4-10.4) 08/14/23 16:14 Neut % (Auto) 62.2 % 08/14/23 16:14 Lymph % (Auto) 21.7 % 08/14/23 16:14 [place] % (Auto) 10.2 % 08/14/23 16:14 Eos % (Auto) 1.2 % 08/14/23 16:14 Baso % (Auto) 1.0 % 08/14/23 16:14 Reticulocyte % (Auto) 3.1 % (0.5-2.0) H 08/14/23 16:14 Neut # (Auto) 10.55 10^3/uL (1.8-7.7) H 08/14/23 16:14 Lymph # (Auto) 3.7 10^3/uL (0.8-4.8) 08/14/23 16:14 [place] # (Auto) 1.7 10^3/uL (0.2-0.9) H 08/14/23 16:14 Eos # (Auto) 0.2 10^3/uL (0.0-0.8) 08/14/23 16:14 Baso # (Auto) 0.2 10^3/uL (0.0-0.1) H 08/14/23 16:14 Nucleated RBC % (auto) 0.5 % 08/14/23 16:14 Nucleated RBCs # 0.1 /100WBC 08/14/23 16:14 PT 16.40 SECONDS (12.1-14.9) H 08/14/23 16:14 INR 1.28 (0.8-1.2) H 08/14/23 16:14 APTT 32.7 SECONDS (23.9-36.7) 08/14/23 16:14 Sodium 129 mmol/L (136-145) L 08/14/23 16:14 Potassium 5.1 mmol/L (3.5-5.1) 08/14/23 16:14 Chloride 94 mmol/L (98-107) L 08/14/23 16:14 Carbon Dioxide 27 mmol/L (22-29) 08/14/23 16:14 Anion Gap 13.1 (5-19) 08/14/23 16:14 BUN 14 mg/dL (8-23) 08/14/23 16:14 Creatinine 0.8 mg/dL (0.5-0.9) 08/14/23 16:14 GFR Calculation Not Reportable 08/14/23 16:14 Glucose 296 mg/dL (65-115) H 08/14/23 16:14 Calculated Osmolality 279 mOsm/kg (285-295) L 08/14/23 16:14 Calcium 8.5 mg/dL (8.5-10.5) 08/14/23 16:14 Iron 14 ug/dL (37-145) L 08/14/23 16:14 TIBC 382 mcg/dl 08/14/23 16:14 % Saturation 3.6 % (20-50) L 08/14/23 16:14 Unsat Iron Binding 368 ug/dL (112-347) H 08/14/23 16:14 Total Bilirubin 0.2 mg/dL (0.15-1.2) 08/14/23 16:14 AST 10 U/L (0-32) 08/14/23 16:14 ALT 8 U/L (0-33) 08/14/23 16:14 Alkaline Phosphatase 202 U/L (35-105) H 08/14/23 16:14 Lactate Dehydrogenase 240 U/L (135-214) H 08/14/23 16:14 NT-Pro-B Natriuret Pep 1577 pg/mL (0-450) H 08/14/23 16:14 Total Protein 6.8 g/dL (6.6-8.7) 08/14/23 16:14 Albumin 3.3 g/dL (3.5-5.2) L 08/14/23 16:14 Globulin 3.5 g/dL (1.3-4.6) 08/14/23 16:14 Vitamin B12 399 pg/mL (232-1245) 08/14/23 16:14 TSH 1.44 uIU/mL (0.27-4.20) 08/14/23 16:14 Blood Type O Positive 08/14/23 16:14 Rho(D) Type Rh positive 08/14/23 16:14 Antibody Screen Negative 08/14/23 16:14 Crossmatch See Detail 08/14/23 16:14 All radiology interpretation(s) finalized by discharge Discharge Plan Discharge Patient Disposition: Admitted As Inpatient Admit Provider: Javy Saba Clinical Impression: Anemia, Leukocytosis, Hyperkalemia, Hyponatremia, Chronic atrial fibrillation, On apixaban therapy, Fluid overload Condition: Stable Coding Level of Care Code ED Switch Cleaner for Gema Hatfield
[2023-08-14 16:27] LABS: Basophils # 0.2 10^3/uL (0.0-0.1); Eosinophils # 0.2 10^3/uL (0.0-0.8); Eosinophils % 1.2 %; Hematocrit 26.3 % (36-47); Lymphocytes # 3.7 10^3/uL (0.8-4.8); Lymphocytes % 21.7 %; Mean Corpuscular Hemoglobin 19.6 pg (27-33); Mean Corpuscular Volume 72.5 fl (85-98); Mean Platelet Volume 9.7 fL (7.4-10.4); Monocytes # 1.7 10^3/uL (0.2-0.9); Monocytes % 10.2 %; Neutrophils # 10.55 10^3/uL (1.8-7.7); Neutrophils % 62.2 %; Nucleated Red Blood Cells # 0.1 /100WBC; Nucleated Red Blood Cells % 0.5 %; Platelet Count 418 10^3/cmm (157-399); Red Blood Count 3.63 10^6/uL (3.85-5.65); Red Cell Distribution Width 18.6 % (12.1-15.1); White Blood Count 16.99 10^3/uL (3.29-11.43)
[2023-08-14 16:49] LABS: INR 1.28 (0.8-1.2)
[2023-08-14 16:50] LABS: Partial Thromboplastin Time 32.7 SECONDS (23.9-36.7)
[2023-08-14 16:54] LABS: Alanine Aminotransferase 8 U/L (0-33); Albumin Level 3.3 g/dL (3.5-5.2); Alkaline Phosphatase 202 U/L (35-105); Anion Gap 13.1 (5-19); Aspartate Amino Transferase 10 U/L (0-32); Blood Urea Nitrogen 14 mg/dL (8-23); Calcium 8.5 mg/dL (8.5-10.5); Carbon Dioxide 27 mmol/L (22-29); Chloride 94 mmol/L (98-107); Globulin 3.5 g/dL (1.3-4.6); Glucose 296 mg/dL (65-115); Osmolality Calculated 279 mOsm/kg (285-295); Potassium 5.1 mmol/L (3.5-5.1); Sodium 129 mmol/L (136-145); Total Bilirubin 0.2 mg/dL (0.15-1.2); Total Protein 6.8 g/dL (6.6-8.7)
--- NOTE | 2023-08-14 17:22 | PC.NURSE ---
attempted to get in and out cath urine x2 unsuccessfully. notified. daughter at bedside reports pt hasnt been able to have any type of cath due to a possible stricture from chronic cath placement in the past.
--- NOTE | 2023-08-14 17:45 | PM.HP ---
Providers/Chief Complaint Primary Care Provider: Elaine Topete Chief Complaint: Low HGB History of Present Illness Purvi Sparks is a 78 year old female who is a [facility] resident with past history of A-fib, multiple stroke in the past on chronic Eliquis, COPD, hypertension, morbidly obese when she was found to have significant anemia on her regular labs. Hemoglobin was found to be 6.8 at the [facility]. Patient herself denies any nausea vomiting, headache, abdominal pain, difficulty in breathing, chest pain, diarrhea. Seen with daughter at bedside. Patient is awake and alert and wants to go back to [facility] as soon as possible and is reluctant to stay which is making her distressed though was agreeable to stay after speaking with the daughter. As per the patient and daughter she did have a colonoscopy a few years ago which was reported normal. Declines of having any endoscopy in the past. Review of Systems General: Reports: 10 or more systems reviewed and unremarkable except in HPI and below Const: Denies: fever(s), chills, body aches, change in appetite, change in weight, malaise, night sweats, diaphoresis, change in sleep pattern, daytime sleepiness or snoring Eyes: Denies: change in vision, blurry vision, photophobia, eye discomfort or eye discharge ENMT: Denies: throat pain, enlarged tonsils, hoarseness, mouth pain, oral sores, dry mouth, tinnitus, nasal congestion or post nasal drip Card: Denies: chest pain, palpitations, irregular heart rhythm, edema, swelling of feet/ankles, lightheadedness, syncope, pre-syncope, dyspnea on exertion, orthopnea, leg pain with exertion or acrocyanosis Resp: Denies: dyspnea, productive cough, non-productive cough, wheezing, stridor, pain on inspiration, change in phlegm color, hemoptysis or chest congestion GI: Denies: abdominal pain, nausea, vomiting, hematemesis, coffee ground emesis, dysphagia, heartburn, diarrhea, constipation, bloating, GI cramping, change in bowel habits, pain on defecation, hematochezia or melena : Denies: flank pain, dysuria, urinary frequency, urinary urgency, urinary hesitancy, nocturia or hematuria Musc: Denies: neck pain, back pain, extremity pain, joint pain, joint swelling, joint redness, joint stiffness or limited range of motion Neuro: Denies: headache(s), numbness in extremities, weakness in extremities, sensory changes, lack of coordination, difficulty walking, frequent falls, dizziness, vertigo, confusion, Slurred speech present, difficulty communicating thoughts or seizure-like activity Psych: Denies: anxiety, depression, mood swings, panic attacks, hopelessness or irritability Endo: Denies: polyuria, polydipsia, tired all the time, cold intolerance, excessive sweating, flushing or heat intolerance Ramsey/Lymph: Denies: easy bruising or easy bleeding All/Imm: Denies: tongue swelling, facial swelling or acute wheezing Medications/Allergies Home Medications Medication Instructions Recorded Confirmed Last Taken Type apixaban 5 mg tablet (Eliquis) 5 mg PO BID 07/18/19 01/25/23 01/06/20 History ropinirole 1 mg tablet 1 mg PO DAILY 07/18/19 01/25/23 01/06/20 History diltiazem HCl 120 mg 120 mg PO DAILY 08/05/19 01/25/23 01/06/20 History capsule,extended release 24 hr (Cartia XT) docusate sodium 100 mg tablet 100 mg PO DAILY 01/06/20 01/25/23 01/06/20 History (Stool Softener) rosuvastatin 10 mg tablet 20 mg (2 x 10 mg) PO DAILY #0 tabs 08/11/20 01/25/23 01/06/20 Rx ondansetron HCl 4 mg tablet 4 mg PO Q6H PRN Nausea 01/25/23 01/25/23 Unknown History albuterol sulfate 90 mcg/actuation 1 inh inhalation Q6H PRN shortness 02/02/23 Unknown Rx aerosol inhaler of breath or wheezing #8.5 grams fluticasone fur. 100 mcg-umeclid 1 inh inhalation DAILY #60 ea 02/02/23 Unknown Rx 62.5 mcg-vilant 25 mcg inhalat.powder (Trelegy Ellipta) lisinopril 5 mg tablet 5 mg PO DAILY #30 tabs 02/02/23 Unknown Rx magnesium oxide 400 mg (241.3 mg 400 mg PO BID #6 tabs 02/02/23 Unknown Rx magnesium) tablet neomycin-bacitracn Zn-polymyx 3.5 1 applic topical BID #14 grams 02/02/23 Unknown Rx mg-400 unit-5,000 unit/gram top oint (Triple Antibiotic) zinc oxide 20 % topical ointment 1 applic topical BID #28 grams 02/02/23 Unknown Rx Allergies Allergy/AdvReac Type Severity Reaction Status Date / Time morphine Allergy ALGY-Rash Verified 01/24/23 00:09 quinine Allergy ALGY-Rash Verified 01/24/23 00:09 Sulfa (Sulfonamide Allergy ALGY-Rash Verified 01/24/23 00:09 Antibiotics) Penicillins AdvReac ALGY-Rash Verified 01/24/23 00:09 PFSH Acute PFSH: Medical History (Updated 08/14/23 @ 21:08 by Javy Saba MD) Cerebrovascular accident TIA Chronic atrial fibrillation Skin rash Wound, open, abdominal wall, lateral ESBL 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 difficile colitis Gastroesophageal reflux disease Hyperlipidemia On apixaban therapy History of ESBL E. coli infection History of MRSA infection History of small bowel obstruction Medically managed to date Diabetes mellitus Coronary artery disease HTN (hypertension), malignant COPD (chronic obstructive pulmonary disease) Morbid obesity Surgical History History of colonoscopy (~2013) History of bladder suspension procedure History of orthopedic surgery Wrist and left leg History of cholecystectomy History of tubal ligation History of appendectomy Family History Other CAD (coronary artery disease) Cancer Social History (Updated 08/14/23 @ 21:06 by Javy Saba MD) Smoking and tobacco/nicotine status: current every day tobacco/nicotine user cigarettes Packs smoked per day: 0.5 Alcohol intake: never Substance/Drug Use: unknown Caregiver/support person: Yes (Son as well as some home health) Housing: Group Home Vitals/I&O/Wt Last Vital Signs Temp 98.2 F 08/14/23 15:57 Pulse 101 H 08/14/23 17:41 Resp 17 08/14/23 17:41 BP 145/65 08/14/23 17:41 Pulse Ox 98 08/14/23 17:41 O2 Del Method Nasal Cannula 08/14/23 15:57 O2 Flow Rate 2 08/14/23 15:57 Weight last 48 hrs Weight 113.398 kg Physical Exam Narrative: General: No acute distress, AO x3, morbidly obese, pallor present, distressed and occasionally crying on the thought of staying in hospital HEENT: PERRLA, pupils bilaterally equal and reactive Chest: Normal vesicular breath sounds, no added sounds, equal good air entry bilaterally CVS: S1-S2 irregularly irregular, no murmurs, no tachycardia, no gallops, no rubs Abdomen: Soft, nontender, no organomegaly, bowel sounds present Neuro: No focal deficits, no facial deformity, AO x3, Data 08/14/23 16:14 08/14/23 16:14 A&P Assessment and plan (1) Anemia: Most likely in setting of chronic slow bleed but cannot rule out in setting of chronic disease anemia. Check iron panel, vitamin B12, folate level, reticulocyte count, LDH. Transfused 2 unit of PRBC with target of more than 8. Check stool for occult blood. Protonix 40 mg IV twice daily along with Carafate ACHS. Discussed with patient and daughter regarding further treatment options with need for being off Eliquis for next few weeks. We did discuss being off Eliquis she will be at higher risk of stroke. Daughter verbalized understanding and is agreeable to hold Eliquis for now. Plan will be to hold Eliquis for next 2 weeks and restart afterwards. Recheck hemoglobin in a week after his restarting Eliquis. Meanwhile she will be on Protonix twice daily along with Carafate ACHS. (2) Hyponatremia: Most likely in setting of mild fluid overload. IV Lasix 40 mg one-time along with repeat dose between 2 units. Monitor BMP daily. Check urine lites, urine creatinine. Check lipid panel, A1c. (3) Diabetes mellitus: Past history of uncontrolled hyperglycemia. Insulin sliding scale at mild dose protocol. (4) Fluid overload: Most likely in setting of diastolic heart failure though no echocardiogram present in the system. Check proBNP. Strict input output charting. Lasix as above. (5) Chronic atrial fibrillation: Rate controlled Continue with home dose of Cardizem. Hold Eliquis. (6) Coronary artery disease: (7) On apixaban therapy: (8) Leukocytosis: Unknown etiology. No active signs of infection though patient has history of MRSA infection in the past, ESBL E. coli UTI, C. difficile. Check blood culture, urinalysis, urine culture, procalcitonin. Hold off on antibiotics for now. Plan CODE STATUS: Discussed in detail with patient and daughter at bedside. Daughter will be DPOA. Full code. N.p.o. except ice chips and medications Protonix for PUD prophylaxis SCDs for DVT prophylaxis. Attestations Medical Necessity Statement*: Admission for more than 2 midnights for further evaluation and management of acute anemia in a patient on chronic Eliquis, hyponatremia Diagnoses Anemia D64.9 Hyponatremia E87.1 Type 2 diabetes mellitus with hyperglycemia, with long-term current use of insulin E11.9 Fluid overload E87.70 Chronic atrial fibrillation I48.20 Coronary artery disease I25.10 On apixaban therapy Z79.01 Leukocytosis D72.829
[2023-08-14] MEDS: FUROsemide 10 mg/mL SDV 4mL 40 MG IVP ×2 (18:36→22:15)
[2023-08-14] MEDS: pantoprazole 40 mg SDV IVP (18:36)
[2023-08-14 20:25] LABS: Iron 14 ug/dL (37-145); Percent Saturation 3.6 % (20-50); Thyroid Stimulating Hormone 1.44 uIU/mL (0.27-4.20); Total Iron Binding Capacity 382 mcg/dl; Unsaturated Iron Binding 368 ug/dL (112-347); Vitamin B12 399 pg/mL (232-1245)
[2023-08-14] MEDS: sucralfate 1 gm/10 mL Oral Liq UDC PO (21:29)
[2023-08-14 22:20] LABS: Glucose Point of Care 235 mg/dL (70-110)
[2023-08-14] MEDS: insulin lispro 100 unit/1 mL SUBCUT (22:24)
[2023-08-14 22:36] LABS: Reticulocyte % 3.1 % (0.5-2.0)
[2023-08-14 23:06] LABS: Lactate Dehydrogenase 240 U/L (135-214); NT Pro B Type Natriuretic Pept 1577 pg/mL (0-450)
[2023-08-14] MEDS: acetaminophen 325 mg Tablet 650 MG PO (23:38)
[2023-08-15] VITALS (9 sets, daily range): BP systolic 111–128; BP diastolic 65–91; PULSE 88–106; RESP 16–21; TEMP 36.4–37; O2SAT 94–97
[2023-08-15] MEDS: diphenhydrAMINE 25 mg Capsule PO (00:58)
[2023-08-15 01:37] LABS: Basophils # 0.2 10^3/uL (0.0-0.1); Eosinophils # 0.2 10^3/uL (0.0-0.8); Eosinophils % 1.3 %; Hematocrit 35.1 % (36-47); Lymphocytes # 2.7 10^3/uL (0.8-4.8); Lymphocytes % 15.5 %; Mean Corpuscular HGB Conc 28.8 g/dL (30-55); Mean Corpuscular Hemoglobin 21.4 pg (27-33); Mean Corpuscular Volume 74.4 fl (85-98); Mean Platelet Volume 9.4 fL (7.4-10.4); Monocytes # 1.8 10^3/uL (0.2-0.9); Neutrophils # 11.93 10^3/uL (1.8-7.7); Neutrophils % 68.5 %; Nucleated Red Blood Cells # 0.1 /100WBC; Nucleated Red Blood Cells % 0.6 %; Platelet Count 386 10^3/cmm (157-399); Red Blood Count 4.72 10^6/uL (3.85-5.65); Red Cell Distribution Width 19.5 % (12.1-15.1); White Blood Count 17.43 10^3/uL (3.29-11.43)
[2023-08-15 01:57] LABS: Estmated Average Glucose 169; Hemoglobin A1C 7.5 % (4.0-6.0)
[2023-08-15 02:00] LABS: Chol HDL Ratio 1.96 mg/dL (0.0-4.40); Cholesterol 110 mg/dL (0-200); HDL Cholesterol 56 mg/dL (60-100); LDL Cholesterol Calculated 35 mg/dL (50-129); LDL HDL Ratio 0.63 RATIO (0.00-3.22); Triglycerides 94 mg/dL (0-150)
[2023-08-15 02:14] LABS: Folate Level 6.6 ng/mL (4.8-37.3)
[2023-08-15 03:22] LABS: Alanine Aminotransferase 8 U/L (0-33); Albumin Level 3.4 g/dL (3.5-5.2); Alkaline Phosphatase 186 U/L (35-105); Anion Gap 15.7 (5-19); Aspartate Amino Transferase 9 U/L (0-32); Blood Urea Nitrogen 16 mg/dL (8-23); Calcium 8.8 mg/dL (8.5-10.5); Carbon Dioxide 27 mmol/L (22-29); Chloride 91 mmol/L (98-107); Globulin 3.9 g/dL (1.3-4.6); Glucose 172 mg/dL (65-115); Magnesium 1.8 mg/dL (1.7-2.3); Osmolality Calculated 273 mOsm/kg (285-295); Potassium 4.7 mmol/L (3.5-5.1); Sodium 129 mmol/L (136-145); Total Bilirubin 0.5 mg/dL (0.15-1.2); Total Protein 7.3 g/dL (6.6-8.7)
[2023-08-15 03:58] LABS: Glucose Point of Care 185 mg/dL (70-110)
[2023-08-15] MEDS: insulin lispro 100 unit/1 mL SUBCUT ×3 (04:00→22:06)
[2023-08-15] MEDS: pantoprazole 40 mg SDV IVP ×2 (05:47→17:33)
[2023-08-15] MEDS: duloxetine 60 mg Capsule PO (08:48)
[2023-08-15] MEDS: dilTIAZem ER (24HR) 120 mg Capsule PO (08:48)
[2023-08-15] MEDS: atorvastatin 40 mg Tablet 80 MG PO (08:48)
[2023-08-15] MEDS: ropinirole 1 mg Tablet PO (08:48)
[2023-08-15] MEDS: sucralfate 1 gm/10 mL Oral Liq UDC PO ×3 (08:48→21:22)
[2023-08-15] MEDS: FUROsemide 10 mg/mL SDV 4mL 40 MG IVP (08:49)
[2023-08-15 10:09] LABS: Glucose Point of Care 183 mg/dL (70-110)
--- NOTE | 2023-08-15 11:45 | PC.NURSE ---
Patient arrived to the floor at this time.
--- NOTE | 2023-08-15 11:57 | PC.NURSE ---
Patient states that she did have a bowel movement in the emergency room.
[2023-08-15 12:26] LABS: Glucose Point of Care 156 mg/dL (70-110)
--- NOTE | 2023-08-15 14:12 | P.PN_ITS ---
Subjective 2 Subjective: No acute events overnight. Patient has remained in the ER overnight as she was awaiting bed. Seen with daughter at bedside. Did receive blood transfusion overnight. Patient herself denies any new complaints. Still asking when she can go back home. Denies any nausea, vomiting, headache. Denies any abdominal pain. Has remained hemodynamically stable and afebrile though slightly tachycardic. Vitals/I&O/Wt Last Vital Signs Temp 97.5 F L 08/14/23 22:20 Pulse 103 H 08/15/23 11:04 Resp 21 H 08/15/23 11:04 BP 124/65 08/15/23 08:54 Pulse Ox 96 08/15/23 11:04 O2 Del Method Nasal Cannula 08/15/23 08:54 O2 Flow Rate 2 08/15/23 08:54 08/14/23 08/15/23 08/15/23 22:59 06:59 14:59 Intake Total 800 / 800 350 / 1150 Balance 800 / 800 350 / 1150 Weight last 48 hrs Weight 113.398 kg Physical Exam 2 Narrative: General: No acute distress, AO x3, morbidly obese, pallor present, distressed and occasionally crying on the thought of staying in hospital HEENT: PERRLA, pupils bilaterally equal and reactive Chest: Normal vesicular breath sounds, no added sounds, equal good air entry bilaterally CVS: S1-S2 irregularly irregular, no murmurs, no tachycardia, no gallops, no rubs Abdomen: Soft, nontender, no organomegaly, bowel sounds present Neuro: No focal deficits, no facial deformity, AO x3, Data 08/15/23 01:25 08/15/23 01:25 Micro: Microbiology 08/14/23 01:28 Blood Culture - Preliminary Blood SPECIMEN COLLECTED 08/14/23 01:25 Blood Culture - Preliminary Blood SPECIMEN COLLECTED A&P Assessment and plan (1) Anemia: Most likely in setting of chronic slow bleed but cannot rule out in setting of chronic disease anemia. Appreciate iron panel, vitamin B12, folate level, reticulocyte count, LDH. Will start patient on oral iron supplementation. Post 2 unit of PRBC with target of more than 8. Check stool for occult blood. Still pending. Continue with Protonix 40 mg IV twice daily along with Carafate ACHS. Discussed with patient and daughter regarding further treatment options with need for being off Eliquis for next few weeks. We did discuss being off Eliquis she will be at higher risk of stroke. Daughter verbalized understanding and is agreeable to hold Eliquis for now. Plan will be to hold Eliquis for next 2 weeks and restart afterwards. Recheck hemoglobin in a week after his restarting Eliquis. Meanwhile she will be on Protonix twice daily along with Carafate ACHS. (2) Hyponatremia: Most likely in setting of mild fluid overload. Repeat IV Lasix 40 mg. Remember remains in 129. Still not able to get a urine sample given history of urinary stricture. Hopefully we will get urine sample for urinalysis, urine lites and creatinine. Appreciate A1c and lipid panel. A1c seems to be improving down to 7.5. Repeat sodium level in evening. If needed will start patient on oral salt supplements. (3) Diabetes mellitus: Past history of uncontrolled hyperglycemia. A1c down to 7.5 now. Insulin sliding scale at mild dose protocol. Restart Lantus at 30 units twice daily for now. Patient takes 45 units twice daily and 10 units of Humalog 3 times daily. (4) Fluid overload: Fluid restriction of up to 1800 cc. (5) Chronic atrial fibrillation: Close mild tachycardia. For now continue with home dose of Cardizem. Will plan to increase Cardizem to 180 mg on discharge. Hold Eliquis. (6) Coronary artery disease: (7) On apixaban therapy: (8) Leukocytosis: Unknown etiology. Could be in setting of acute anemia. No active signs of infection though patient has history of MRSA infection in the past, ESBL E. coli UTI, C. difficile. Check blood culture, urinalysis, urine culture, procalcitonin. Hold off on antibiotics for now. Plan CODE STATUS: Discussed in detail with patient and daughter at bedside. Daughter will be DPOA. Full code. Start on full liquid diet carb consistent. Protonix for PUD prophylaxis SCDs for DVT prophylaxis. Discharge plan: Plan to discharge back to SNF if hemoglobin remained stable and sodium level shows improvement in the next 24 hours Attestations 2 Medical Necessity Statement*: Requires further hospitalization for management of acute anemia with concerns for slow GI bleed, hyponatremia in setting of fluid overload in a patient who is on chronic Eliquis, alf resident Diagnoses Anemia D64.9 Hyponatremia E87.1 Type 2 diabetes mellitus with hyperglycemia, with long-term current use of insulin E11.9 Fluid overload E87.70 Chronic atrial fibrillation I48.20 Coronary artery disease I25.10 On apixaban therapy Z79.01 Leukocytosis D72.829
[2023-08-15 16:46] LABS: Glucose Point of Care 171 mg/dL (70-110)
[2023-08-15] MEDS: insulin glargine 100 units/1 mL 30 UNIT SUBCUT (17:33)
[2023-08-15 19:21] LABS: Bacillus cereus group Not Detected (NOT DETECT); Bacillus subtillis group Not Detected (NOT DETECT); Corynebacterium Not Detected (NOT DETECT); Cutibacterium acnes (P.acnes) Not Detected (NOT DETECT); Enterococcus Not Detected (NOT DETECT); Enterococcus faecalis Not Detected (NOT DETECT); Enterococcus faecium Not Detected (NOT DETECT); Lactobacillus species Not Detected (NOT DETECT); Listeria Not Detected (NOT DETECT); Listeria monocytogenes Not Detected (NOT DETECT); Micrococcus Not Detected (NOT DETECT); Pan Candida Not Detected (NOT DETECT); Pan Gram-Negative Not Detected (NOT DETECT); Staphylococcus epidermidis Not Detected (NOT DETECT); Staphylococcus lugdunensis Not Detected (NOT DETECT); Staphylococcus species Detected (NOT DETECT); Streptococcus agalactiae Not Detected (NOT DETECT); Streptococcus anginosus group Not Detected (NOT DETECT); Streptococcus pneumoniae Not Detected (NOT DETECT); Streptococcus pyogenes Not Detected (NOT DETECT); Streptococcus species Not Detected (NOT DETECT); mecA Detected (NOT DETECT); mecC Not Detected (NOT DETECT)
[2023-08-15 19:45] LABS: Anion Gap 14.3 (5-19); Blood Urea Nitrogen 15 mg/dL (8-23); Calcium 8.6 mg/dL (8.5-10.5); Carbon Dioxide 27 mmol/L (22-29); Chloride 90 mmol/L (98-107); Glucose 179 mg/dL (65-115); Osmolality Calculated 269 mOsm/kg (285-295); Potassium 4.3 mmol/L (3.5-5.1); Sodium 127 mmol/L (136-145)
[2023-08-15 21:53] LABS: Glucose Point of Care 185 mg/dL (70-110)
[2023-08-15 21:59] LABS: Procalcitonin 0.08 ng/mL (0-0.5)
[2023-08-15] MEDS: meropenem 1,000 MG in sodium chloride 0.9% (plus) 50 ML 100 MG IV (22:06)
[2023-08-15] MEDS: vancomycin 1,250 MG/250 ML PIGGYBACK 250 MG IV (22:39)
--- NOTE | 2023-08-15 22:54 | PC.NURSE ---
pt was incontinent of urine and was unable to measure her urine output
[2023-08-15 23:44] LABS: Bilirubin Urine Neg (Negative); Blood Urine Neg (Negative); Glucose Urine UA Norm (Normal); Ketones Urine Negative (Negative); Nitrate Urine Negative (Negative); Protein Urine Neg (Negative); Specific Gravity, Urine 1.005 (1.005-1.030); Urine Appearance Hazy (CLEAR); Urine Color Light yellow (Yellow); Urobilinogen Urine Norm (Negative); pH Urine 7 (5-7)
[2023-08-15 23:45] LABS: Add Urine Culture? Yes; Add Urine Microscopic? YES; Bacteria Urine 1+ /hpf; Leukocyte Esterase Urine 2+ (Negative); RBC Urine 0-4 /hpf (0-2); Squamous Epithelial Cell Urine 0-4 /hpf (0-5); WBC Urine 55-80 /hpf (0-5)
[2023-08-15 23:52] LABS: Potassium, Radom Urine 15 mmol/L; Urine Creatinine 15 mg/dL (28-217); Urine Random Chloride 20 mmol/L; Urine Random Sodium 38 mmol/L
[2023-08-16 04:34] VITALS: BP 122/75; PULSE 100; RESP 18; TEMP 37; O2SAT 94
[2023-08-16 04:48] LABS: Glucose Point of Care 127 mg/dL (70-110)
[2023-08-16 05:05] LABS: Basophils # 0.2 10^3/uL (0.0-0.1); Eosinophils # 0.4 10^3/uL (0.0-0.8); Eosinophils % 2.3 %; Hematocrit 32.5 % (36-47); Lymphocytes # 2.8 10^3/uL (0.8-4.8); Lymphocytes % 18.3 %; Mean Corpuscular HGB Conc 28.9 g/dL (30-55); Mean Corpuscular Hemoglobin 21.6 pg (27-33); Mean Corpuscular Volume 74.7 fl (85-98); Mean Platelet Volume 9.9 fL (7.4-10.4); Monocytes # 1.6 10^3/uL (0.2-0.9); Monocytes % 10.6 %; Neutrophils # 10.09 10^3/uL (1.8-7.7); Neutrophils % 64.9 %; Nucleated Red Blood Cells % 0.2 %; Platelet Count 381 10^3/cmm (157-399); Red Blood Count 4.35 10^6/uL (3.85-5.65); Red Cell Distribution Width 20.5 % (12.1-15.1); White Blood Count 15.52 10^3/uL (3.29-11.43)
[2023-08-16 05:33] LABS: Alanine Aminotransferase 8 U/L (0-33); Albumin Level 3.2 g/dL (3.5-5.2); Alkaline Phosphatase 165 U/L (35-105); Anion Gap 15.4 (5-19); Aspartate Amino Transferase 10 U/L (0-32); Blood Urea Nitrogen 13 mg/dL (8-23); Calcium 8.4 mg/dL (8.5-10.5); Carbon Dioxide 28 mmol/L (22-29); Chloride 97 mmol/L (98-107); Creatinine Clr Calc Pharmacy 68.0967; Globulin 3.4 g/dL (1.3-4.6); Glucose 124 mg/dL (65-115); Osmolality Calculated 284 mOsm/kg (285-295); Potassium 4.4 mmol/L (3.5-5.1); Sodium 136 mmol/L (136-145); Total Bilirubin 0.4 mg/dL (0.15-1.2); Total Protein 6.6 g/dL (6.6-8.7)
[2023-08-16] MEDS: sucralfate 1 gm/10 mL Oral Liq UDC PO ×4 (06:04→21:51)
[2023-08-16] MEDS: pantoprazole 40 mg SDV IVP ×2 (06:04→18:10)
[2023-08-16] MEDS: meropenem 1,000 MG in sodium chloride 0.9% (plus) 50 ML 100 MG IV ×3 (06:05→21:51)
[2023-08-16 07:31] VITALS: BP 136/79; PULSE 107; RESP 15; TEMP 36.8; O2SAT 94
--- NOTE | 2023-08-16 08:52 | P.DS_ITS ---
Discharge Providers Date of Admission: 08/14/23 20:51 Date of Discharge: August 16, 2023 Attending Provider at Admission: Javy Saba MD Attending Provider at Discharge: Javy Saba MD Primary Care Provider: Elaine Topete Diagnoses at Discharge Discharge Diagnosis (1) Anemia: Status: Acute (2) Hyponatremia: Status: Acute (3) Diabetes mellitus: Status: Acute (4) Fluid overload: Status: Acute (5) Chronic atrial fibrillation: Status: Acute (6) Coronary artery disease: Status: Acute (7) On apixaban therapy: Status: Acute (8) Leukocytosis: Status: Acute Reason for Visit Reason for Visit: Low HGB Discharge Data Studies Completed and Pending Pending at discharge Category Date Time Status Bacterial Antigen Routine Lab 08/15/23 23:25 Received Blood Culture Stat Lab 08/14/23 01:28 Results Blood Culture Stat Lab 08/15/23 21:49 Results Immunochemical Fecal OCB Stat Lab 08/14/23 16:32 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] Routine Lab 08/15/23 23:25 Received Urine Culture Stat Lab 08/15/23 23:25 Received Laboratory Results WBC 15.52 10^3/uL (3.29-11.43) H 08/16/23 04:23 RBC 4.35 10^6/uL (3.85-5.65) 08/16/23 04:23 Hgb 9.40 g/dL (11.27-16.99) L 08/16/23 04:23 Hct 32.5 % (36-47) L 08/16/23 04:23 MCV 74.7 fl (85-98) L 08/16/23 04:23 MCH 21.6 pg (27-33) L 08/16/23 04:23 MCHC 28.9 g/dL (30-55) L 08/16/23 04:23 RDW 20.5 % (12.1-15.1) H 08/16/23 04:23 Plt Count 381 10^3/cmm (157-399) 08/16/23 04:23 MPV 9.9 fL (7.4-10.4) 08/16/23 04:23 Neut % (Auto) 64.9 % 08/16/23 04:23 Lymph % (Auto) 18.3 % 08/16/23 04:23 [place]inkler % (Auto) 10.6 % 08/16/23 04:23 Eos % (Auto) 2.3 % 08/16/23 04:23 Baso % (Auto) 1.0 % 08/16/23 04:23 Reticulocyte % (Auto) 3.1 % (0.5-2.0) H 08/14/23 16:14 Neut # (Auto) 10.09 10^3/uL (1.8-7.7) H 08/16/23 04:23 Lymph # (Auto) 2.8 10^3/uL (0.8-4.8) 08/16/23 04:23 [place]inkler # (Auto) 1.6 10^3/uL (0.2-0.9) H 08/16/23 04:23 Eos # (Auto) 0.4 10^3/uL (0.0-0.8) 08/16/23 04:23 Baso # (Auto) 0.2 10^3/uL (0.0-0.1) H 08/16/23 04:23 Nucleated RBC % (auto) 0.2 % 08/16/23 04:23 Nucleated RBCs # 0.0 /100WBC 08/16/23 04:23 PT 16.40 SECONDS (12.1-14.9) H 08/14/23 16:14 INR 1.28 (0.8-1.2) H 08/14/23 16:14 APTT 32.7 SECONDS (23.9-36.7) 08/14/23 16:14 Sodium 136 mmol/L (136-145) 08/16/23 04:23 Potassium 4.4 mmol/L (3.5-5.1) 08/16/23 04:23 Chloride 97 mmol/L (98-107) L 08/16/23 04:23 Carbon Dioxide 28 mmol/L (22-29) 08/16/23 04:23 Anion Gap 15.4 (5-19) 08/16/23 04:23 BUN 13 mg/dL (8-23) 08/16/23 04:23 Creatinine 0.5 mg/dL (0.5-0.9) 08/16/23 04:23 GFR Calculation Not Reportable 08/16/23 04:23 Glucose 124 mg/dL (65-115) H 08/16/23 04:23 POC Glucose 127 mg/dL (70-110) H 08/16/23 03:59 Estimat Average Glucose 169 08/15/23 01:25 Hemoglobin A1c 7.5 % (4.0-6.0) H 08/15/23 01:25 Calculated Osmolality 284 mOsm/kg (285-295) L 08/16/23 04:23 Calcium 8.4 mg/dL (8.5-10.5) L 08/16/23 04:23 Phosphorus 3.0 mg/dL (2.5-4.5) 08/15/23 01:25 Magnesium 1.8 mg/dL (1.7-2.3) 08/15/23 01:25 Iron 14 ug/dL (37-145) L 08/14/23 16:14 TIBC 382 mcg/dl 08/14/23 16:14 % Saturation 3.6 % (20-50) L 08/14/23 16:14 Unsat Iron Binding 368 ug/dL (112-347) H 08/14/23 16:14 Total Bilirubin 0.4 mg/dL (0.15-1.2) 08/16/23 04:23 AST 10 U/L (0-32) 08/16/23 04:23 ALT 8 U/L (0-33) 08/16/23 04:23 Alkaline Phosphatase 165 U/L (35-105) H 08/16/23 04:23 Lactate Dehydrogenase 240 U/L (135-214) H 08/14/23 16:14 NT-Pro-B Natriuret Pep 1577 pg/mL (0-450) H 08/14/23 16:14 Total Protein 6.6 g/dL (6.6-8.7) 08/16/23 04:23 Albumin 3.2 g/dL (3.5-5.2) L 08/16/23 04:23 Globulin 3.4 g/dL (1.3-4.6) 08/16/23 04:23 Triglycerides 94 mg/dL (0-150) 08/15/23 01:25 Cholesterol 110 mg/dL (0-200) 08/15/23 01:25 LDL Cholesterol, Calc 35 mg/dL (50-129) L 08/15/23 01:25 HDL Cholesterol 56 mg/dL (60-100) L 08/15/23 01:25 LDL/HDL Ratio 0.63 RATIO (0.00-3.22) 08/15/23 01: Cholesterol/HDL Ratio 1.96 mg/dL (0.0-4.40) 08/15/23 01:25 Vitamin B12 399 pg/mL (232-1245) 08/14/23 16:14 Folate 6.6 ng/mL (4.8-37.3) 08/15/23 01:25 Procalcitonin 0.08 ng/mL (0-0.5) 08/15/23 19:07 TSH 1.44 uIU/mL (0.27-4.20) 08/14/23 16:14 Urine Color Light yellow (Yellow) 08/15/23 23:25 Urine Appearance Hazy (CLEAR) A 08/15/23 23: Urine pH 7 (5-7) 08/15/23 23:25 Ur Specific [place] 1.005 (1.005-1.030) 08/15/23 23:25 Urine Protein Neg (Negative) 08/15/23 23:25 Urine Glucose (UA) Norm (Normal) 08/15/23 23:25 Urine Ketones Negative (Negative) 08/15/23 23:25 Urine Blood Neg (Negative) 08/15/23 23:25 Urine Nitrate Negative (Negative) 08/15/23 23:25 Urine Bilirubin Neg (Negative) 08/15/23 23:25 Urine Urobilinogen Norm mg/dL (Negative) 08/15/23 23:25 Ur Leukocyte Esterase 2+ (Negative) H 08/15/23 23:25 Urine RBC 0-4 /hpf (0-2) H 08/15/23 23:25 Urine WBC 55-80 /hpf (0-5) H 08/15/23 23:25 Ur Squamous Epith Cells 0-4 /hpf (0-5) H 08/15/23 23:25 Amorphous Sediment Not Reportable 08/15/23 23:25 Urine Bacteria 1+ /hpf (NONE) H 08/15/23 23:25 Ur Random Sodium 38 mmol/L 08/15/23 23:25 Ur Random Potassium 15 mmol/L 08/15/23 23:25 Ur Random Chloride 20 mmol/L 08/15/23 23:25 Urine Creatinine 15 mg/dL (28-217) L 08/15/23 23:25 Blood Type O Positive 08/14/23 16:14 Rho(D) Type Rh positive 08/14/23 16:14 Antibody Screen Negative 08/14/23 16:14 Crossmatch See Detail 08/14/23 16:14 Vitals Last Vital Signs Temp 98.3 F 08/16/23 07:31 Pulse 107 H 08/16/23 07:31 Resp 15 08/16/23 07:31 BP 136/79 08/16/23 07:31 Pulse Ox 94 08/16/23 07:31 O2 Del Method Nasal Cannula 08/16/23 07:31 O2 Flow Rate 3 08/15/23 20:00 Discharge Plan Discharge Patient Disposition: Home Condition: Stable Prescriptions: New sucralfate 100 mg/mL Suspension 1 g PO AC&BEDTIME 30 Days Qty: 1000 0RF diltiazem HCl [Cardizem CD] 180 mg capsule,extended release 24hr 180 mg PO DAILY Qty: 30 0RF furosemide [Lasix] 20 mg tablet 20 mg PO QAM Qty: 30 0RF pantoprazole [Protonix] 40 mg tablet,delayed release (DR/EC) 40 mg PO BID 30 Days Qty: 60 0RF Rx Instructions: Twice daily for next 1 month after that once daily Continued ropinirole 1 mg Tablet 1 mg PO DAILY docusate sodium [Stool Softener] 100 mg Tablet 100 mg PO BID ondansetron HCl 4 mg Tablet 4 mg PO Q6H PRN (Reason: Nausea) magnesium oxide 400 mg (241.3 mg magnesium) Tablet 400 mg PO BID Qty: 6 0RF Trelegy Ellipta 100-62.5-25 mcg blister with device 1 inh inhalation DAILY Qty: 60 0RF albuterol sulfate 90 mcg/actuation HFA aerosol inhaler 1 inh inhalation Q6H PRN (Reason: shortness of breath or wheezing) Qty: 8.5 0RF acetaminophen 325 mg Tablet 650 mg PO Q4H PRN (Reason: Pain) hydrocodone-acetaminophen 5-325 mg tablet 1 tab PO Q4H PRN (Reason: Pain) alprazolam 0.25 mg tablet See Rx Instructions .ROUTE .COMPLEX Rx Instructions: Take 1 tablet by mouth every 24 hours as needed for anxiety for 3 months. Milk of Magnesia 400 mg/5 mL Suspension 30 ml PO DAILY PRN (Reason: Constipation) Dulcolax (bisacodyl) 10 mg Suppository 10 mg OR DAILY PRN (Reason: Constipation) Fleet Enema 19-7 gram/118 mL Enema 118 ml OR DAILY PRN (Reason: Constipation) rosuvastatin 20 mg tablet 20 mg PO DAILY duloxetine 60 mg capsule,delayed release(DR/EC) 60 mg PO DAILY Artificial Tears (cmc) 1 % Drops 1 drp OPHTHALMIC (EYE) PRN Humalog KwikPen Insulin 100 unit/mL insulin pen 10 unit SUBCUT TID Rx Instructions: Take 10 units by subcutaneous injection 3 times daily plus sliding scale: bs 150-200=0 units, 201-250=2 units, 251-300=4 units, 301-350-6 units, 351- 400=8 units. Lantus Solostar U-100 Insulin 100 unit/mL (3 mL) insulin pen 45 unit SUBCUT BID Held Eliquis 5 mg Tablet 5 mg PO BID Hold Instructions: Resume on 08/30/23. Discontinued diltiazem HCl [Cartia XT] 120 mg capsule,extended release 24hr 120 mg PO DAILY lisinopril 5 mg Tablet 5 mg PO DAILY Qty: 30 0RF Discharge Orders: Discharge Order (Routine); Ordered 08/16/23 Ordered By: Javy Saba Referrals: Elaine Topete PA [Primary Care Provider] - Discharge Diet: Cardiac Discharge Activity: Resume usual activity and Increase activity as tolerated Patient Instructions: Opioid Safety Activity Restrictions/Additional Instructions: Restrict fluid intake to less than 1500. Dose of Cardizem has been increased to 180 mg daily. Take Lasix 20 mg daily. Do not take Eliquis for next 2 weeks. Take Protonix twice daily for next 1 month followed by once daily. Take Carafate 3 times a day for next 1 month. After initiating Eliquis in 2 weeks you should check your hemoglobin in a week. If hemoglobin is trending down you should follow-up with surgery for endoscopy and colonoscopy. Discharge Attestations Status at Discharge: Cognitive status at discharge: cognitively intact , Behavioral status at discharge: cooperative , Coding Level of Care Code Acute Code for [facility] Fwd Diagnoses Anemia D64.9 Hyponatremia E87.1 Type 2 diabetes mellitus with hyperglycemia, with long-term current use of insulin E11.9 Fluid overload E87.70 Chronic atrial fibrillation I48.20 Coronary artery disease I25.10 On apixaban therapy Z79.01 Leukocytosis D72.829
[2023-08-16] MEDS: duloxetine 60 mg Capsule PO (08:57)
[2023-08-16] MEDS: ropinirole 1 mg Tablet PO (08:57)
[2023-08-16] MEDS: dilTIAZem ER (24HR) 120 mg Capsule PO (08:57)
[2023-08-16] MEDS: atorvastatin 40 mg Tablet 80 MG PO (08:57)
[2023-08-16] MEDS: insulin glargine 100 units/1 mL 30 UNIT SUBCUT ×2 (08:57→18:10)
[2023-08-16 09:02] VITALS: PULSE 107; RESP 16; O2SAT 94
--- NOTE | 2023-08-16 09:39 | CTR_ITS ---
PROCEDURE INFORMATION: Exam: CT Thoracic Spine With Contrast Exam date and time: 08/16/2023 3:45 PM Age: 78 years old Clinical indication: Other: Discitis, staph bacteremia TECHNIQUE: Imaging protocol: Computed tomography of the thoracic spine with contrast. Radiation optimization: All CT scans at this facility use at least one of these dose optimization techniques: automated exposure control; mA and/or kV adjustment per patient size (includes targeted exams where dose is matched to clinical indication); or iterative reconstruction. Contrast material: OMNI 350; Contrast volume: 100 ml; Contrast route: INTRAVENOUS (IV); COMPARISON: CT abdomen pelvis wo con [id number] 08/16/2023 3:45 PM RADIATION DOSE METRICS: Total DLP (mGy-cm): 987 FINDINGS: Bones/joints: Diffuse degenerative disc disease with bulky bridging osteophytes throughout lower thoracic and upper lumbar region consistent with DISH. No bony canal stenosis. No evidence for acute fracture. No bony destructive lesion. Soft tissues: Unremarkable. Lungs: No definite infiltrate. Heart: Mild cardiomegaly. Pulmonary venous hypertension. CT/CT thoracic spine w con [id number] IMPRESSION: No acute bony abnormality. If there is clinical concern for disc space or vertebral infection, MRI with and without contrast would be the appropriate examination.
--- NOTE | 2023-08-16 09:39 | CTR_ITS ---
PROCEDURE INFORMATION: Exam: CT Abdomen And Pelvis Without Contrast Exam date and time: 08/16/2023 3:45 PM Age: 78 years old Clinical indication: Other: Marc, collection TECHNIQUE: Imaging protocol: Computed tomography of the abdomen and pelvis without contrast. Radiation optimization: All CT scans at this facility use at least one of these dose optimization techniques: automated exposure control; mA and/or kV adjustment per patient size (includes targeted exams where dose is matched to clinical indication); or iterative reconstruction. COMPARISON: CT abdomen pelvis w con* [id number] 01/06/2020 2:58 PM RADIATION DOSE METRICS: Total DLP (mGy-cm): 1209 FINDINGS: Lungs: Minor subsegmental atelectasis in the left base. Liver: Normal. No mass. Gallbladder and bile ducts: Normal. No calcified stones. No ductal dilation. Pancreas: Normal. No ductal dilation. Spleen: Calcified granulomata in the spleen. Adrenal glands: Normal. No mass. Kidneys and ureters: Mild bilateral perinephric stranding. No evidence for renal obstruction or calcification. Stomach and bowel: Unremarkable. No obstruction. No mucosal thickening. Appendix: No evidence of appendicitis. Intraperitoneal space: Unremarkable. No free air. No significant fluid collection. Vasculature: Unremarkable. No abdominal aortic aneurysm. Lymph nodes: Unremarkable. No enlarged lymph nodes. Urinary bladder: Unremarkable as visualized. Reproductive: Unremarkable as visualized. Bones/joints: IM mile in left femur. Unchanged diffuse degenerative disc disease and facet arthropathy in the lower thoracic and throughout lumbar spine. Soft tissues: Focal soft tissue thickening in right gluteal/lateral thigh region. CT/CT abdomen pelvis wo con [id number] IMPRESSION: No acute intra-abdominal process. Focal soft tissue thickening in right gluteal/lateral thigh region. The appearance is nonspecific but could indicate hematoma, focal edema, or soft tissue infection.
--- NOTE | 2023-08-16 09:39 | CTR_ITS ---
PROCEDURE INFORMATION: Exam: CT Lumbar Spine With Contrast Exam date and time: 08/16/2023 3:45 PM Age: 78 years old Clinical indication: Low back pain; Patient HX: Marc, discitis, staph bacteremia TECHNIQUE: Imaging protocol: Computed tomography of the lumbar spine with contrast. Radiation optimization: All CT scans at this facility use at least one of these dose optimization techniques: automated exposure control; mA and/or kV adjustment per patient size (includes targeted exams where dose is matched to clinical indication); or iterative reconstruction. Contrast material: OMNI 350; Contrast volume: 50 ml; Contrast route: INTRAVENOUS (IV); COMPARISON: MR lumbar spine wo con* [id number] 03/02/2017 11:21 AM RADIATION DOSE METRICS: Total DLP (mGy-cm): 3211.31 FINDINGS: Bones/joints: There is transitional anatomy with sacralization of L5. Severe compression fracture L1 which is a longstanding finding. Slight anterolisthesis T12-L1, unchanged. Diffuse bony demineralization. Diffuse facet arthropathy. Canal stenosis at L2-L3, L3-L4, L4-L5. No fracture or bony destructive lesion. Bilateral SI joint degenerative change. Mild apex leftward mid lumbar curvature. Soft tissues: Unremarkable. CT/CT lumbar spine w con [id number] IMPRESSION: No acute findings. If there is clinical suspicion for disc space or bony infection, MRI with and without contrast is recommended.
--- NOTE | 2023-08-16 09:39 | USCV_ITS ---
Purvi Sparks Age: 78 Gender: F : 1945 Exam Date: 08/16/2023 18:12 Ordering Phys: Javy Saba MD Technologist: PAM Exam Location: [facility] [place] Indication: possible infective endocarditis history of COPD, CHF, chronic atrial fibrillation. No history of cardiac intervention per patient. BP: 141 / 81 HR: 95 Rhythm: Sinus Technical Quality: Adequate MEASUREMENTS (Male / Female) Normal Values 2D ECHO LV Diastolic Diameter PLAX 4.8 cm 4.2 - 5.9 / 3.9 - 5.3 cm LV Systolic Diameter PLAX 3.1 cm IVS Diastolic Thickness 0.9 cm 0.6 - 1.0 / 0.6 - 0.9 cm IVS Systolic Thickness 1.3 cm LVPW Diastolic Thickness 0.9 cm 0.6 - 1.0 / 0.6 - 0.9 cm LVPW Systolic Thickness 1.4 cm LVOT Diameter 1.7 cm LV Ejection Fraction 2D Teich 66.0 % LV Ejection Fraction MOD 2C 61.2 % LV Ejection Fraction 2C AL 60.5 % LA Diameter 4.5 cm LA Width 3.5 cm LA Height 5.0 cm RA Width 2.6 cm RA Height 3.8 cm Aorta at Sinotubular Diameter 2.8 cm IVC Diameter 0.9 cm M-MODE Aortic Annulus Diameter 3.1 cm LA Ao Ratio MM 1.6 MV E Point Septal Separation 0.3 cm DOPPLER AV Peak Velocity 181.0 cm/s LVOT Peak Velocity 116.0 cm/s AV Area Cont Eq vti 1.6 cm squared AV Area Cont Eq pk 1.5 cm squared MV Peak Velocity 158.0 cm/s MV Area PHT 3.9 cm squared Mitral E to A Ratio 0.8 MV E' Velocity 70.5 cm/s Mitral E to MV E' Ratio 14.4 Mitral E to LV E' Lateral Ratio 12.6 Mitral E to LV E' Septal Ratio 16.9 TV Peak E Velocity 50.0 cm/s PV Peak Velocity 124.0 cm/s RV Acceleration Time 0.0 s RV Ejection Time 0.3 s RV AcT/ET 0.2 FINDINGS Left Ventricle Technically limited quality echocardiogram because of poor ultrasonic windows. LV systolic function is grossly normal. Regional wall motion abnormalities cannot accurately be assessed because of limited visualization. Grade 1 diastolic dysfunction. Right Ventricle Normal in size and function Right Atrium Normal in size Left Atrium Dilated Mitral Valve Grossly normal. Mild mitral regurgitation. Aortic Valve Aortic valve is thickened. No significant stenosis or regurgitation. Tricuspid Valve Mild tricuspid regurgitation. Insufficient TR jet to collect RVSP. Pulmonic Valve Not well visualized Pericardium Normal Aorta Normal in size IVC Normal in size CONCLUSIONS Technically limited quality echocardiogram because of poor ultrasonic windows. LV systolic function is grossly normal. Grade 1 diastolic dysfunction Left atrial dilation Mild mitral regurgitation Mild tricuspid regurgitation No comparison studies are available. López Romero MD (Electronically Signed) Final Date: 17 August 2023 12:33 S
[2023-08-16] MEDS: vancomycin 1,250 MG/250 ML PIGGYBACK 250 MG IV ×2 (09:55→22:27)
--- NOTE | 2023-08-16 10:17 | P.PN_ITS ---
Subjective 2 Subjective: No acute events overnight. Patient has remained hemodynamically stable and afebrile. Seen with daughter at bedside. Patient states she is doing better. Plan was for discharge today but blood cultures came back positive for Staph aureus. Vitals/I&O/Wt Last Vital Signs Temp 98.3 F 08/16/23 07:31 Pulse 107 H 08/16/23 09:02 Resp 16 08/16/23 09:02 BP 136/79 08/16/23 07:31 Pulse Ox 94 08/16/23 09:02 O2 Del Method Nasal Cannula 08/16/23 09:02 O2 Flow Rate 4 08/16/23 09:02 08/15/23 08/16/23 08/16/23 22:59 06:59 14:59 Intake Total 410 / 410 250 / 660 50 / 50 Output Total 100 / 100 Balance 410 / 410 150 / 560 50 / 50 Weight last 48 hrs Weight 110.223 kg Weight 113.398 kg Physical Exam 2 Narrative: General: No acute distress, AO x3, morbidly obese, pallor present, distressed and occasionally crying on the thought of staying in hospital HEENT: PERRLA, pupils bilaterally equal and reactive Chest: Normal vesicular breath sounds, no added sounds, equal good air entry bilaterally CVS: S1-S2 irregularly irregular, no murmurs, no tachycardia, no gallops, no rubs Abdomen: Soft, nontender, no organomegaly, bowel sounds present Neuro: No focal deficits, no facial deformity, AO x3, Skin: OTHER: Data 08/16/23 04:23 08/16/23 04:23 Micro: Microbiology 08/14/23 01:25 Blood Culture - Preliminary Blood Staphylococcus aureus 08/14/23 01:28 Blood Culture - Preliminary Blood NEGATIVE TO DATE 08/15/23 21:49 Blood Culture - Preliminary Blood SPECIMEN COLLECTED 08/15/23 21:49 Blood Culture - Preliminary Blood SPECIMEN COLLECTED A&P Assessment and plan (1) Staphylococcus aureus bacteremia: Blood cultures from admission 2 bottles positive for Staph aureus with concerns for MRSA. No active source of infection. Patient does have a small skin tear on the right hip as above. Denies back pain. Denies any hardware. For now we will do further workup. Check CT thoracolumbar with and without contrast to rule out discitis, echocardiogram to rule out infective endocarditis, CT abdomen pelvis. Repeat blood cultures sent on 08/15 though might have been too soon because patient received first dose of IV antibiotics also on 08/15. For now continue with IV vancomycin and meropenem. Patient is allergic to penicillin. Will plan for PICC line placement once blood cultures are negative. Patient will most likely need 4 weeks of IV antibiotics as an outpatient. (2) Anemia: Hemoglobin stable. Post 2 unit of blood transfusion. Appreciate iron panel. Start on IV iron supplementation. Appreciate vitamin B12, folate and reticulocyte count. Continue with Protonix 40 mg IV twice daily along with Carafate ACHS. Discussed with patient and daughter regarding further treatment options with need for being off Eliquis for next few weeks. We did discuss being off Eliquis she will be at higher risk of stroke. Daughter verbalized understanding and is agreeable to hold Eliquis for now. Plan will be to hold Eliquis for next 2 weeks and restart afterwards. Recheck hemoglobin in a week after his restarting Eliquis. Meanwhile she will be on Protonix twice daily along with Carafate ACHS. (3) Hyponatremia: Most likely in setting of mild fluid overload. Currently resolved. Up to 136 today. Monitor BMP daily for now. Continue with fluid restriction up to 1500 cc. Will redose Lasix as needed. Patient would benefit to discharge on oral Lasix 20 mg daily at home. If needed will start on oral salt supplementation. (4) Diabetes mellitus: Past history of uncontrolled hyperglycemia. A1c down to 7.5 now. Insulin sliding scale at mild dose protocol. Continue with Lantus at 30 units twice daily for now. Patient takes 45 units twice daily and 10 units of Humalog 3 times daily. (5) Fluid overload: Fluid restriction of up to 1500 cc. (6) Chronic atrial fibrillation: Close mild tachycardia. Increase dose of Cardizem to 180 mg daily. Hold Eliquis as above. (7) Coronary artery disease: (8) On apixaban therapy: (9) Leukocytosis: Unknown etiology. Blood cultures positive as above. Further workup as above. Will continue to monitor. Plan CODE STATUS: Discussed in detail with patient and daughter at bedside. Daughter will be DPOA. Full code. Start on full liquid diet carb consistent. Protonix for PUD prophylaxis SCDs for DVT prophylaxis. Discharge plan: Plan to discharge back to SNF on IV antibiotics for overall 4 weeks after first negative blood cultures and PICC line placement. Attestations 2 Medical Necessity Statement*: Requires further hospitalization for management of Staphylococcus bacteremia while further workup and repeat negative blood cultures are awaited Diagnoses Staphylococcus aureus bacteremia R78.81; B95.61 Anemia D64.9 Hyponatremia E87.1 Type 2 diabetes mellitus with hyperglycemia, with long-term current use of insulin E11.9 Fluid overload E87.70 Chronic atrial fibrillation I48.20 Coronary artery disease I25.10 On apixaban therapy Z79.01 Leukocytosis D72.829
[2023-08-16 11:16] LABS: Glucose Point of Care 155 mg/dL (70-110)
[2023-08-16 11:24] VITALS: BP 117/69; PULSE 106; RESP 15; TEMP 36.7; O2SAT 93
[2023-08-16] MEDS: iohexol 350 mg/mL 500 mL Btl (per mL) IV (15:47)
[2023-08-16 16:00] VITALS: BP 141/81; PULSE 107; RESP 16; TEMP 36.4; O2SAT 94
[2023-08-16] MEDS: iron sucrose 200 MG in sodium chloride 0.9% (100 ml) 100 ML 220 MG IV (16:13)
[2023-08-16 16:56] LABS: Glucose Point of Care 165 mg/dL (70-110)
[2023-08-16] MEDS: insulin lispro 100 unit/1 mL SUBCUT ×2 (18:11→22:26)
[2023-08-16 20:00] VITALS: BP 119/77; PULSE 99; RESP 18; TEMP 36.8; O2SAT 94
[2023-08-16 21:45] LABS: Glucose Point of Care 141 mg/dL (70-110)
[2023-08-17] VITALS (7 sets, daily range): BP systolic 106–148; BP diastolic 68–80; PULSE 86–108; RESP 15–22; TEMP 36.3–36.8; O2SAT 92–98; BMI 41.1
[2023-08-17 04:37] LABS: Basophils # 0.2 10^3/uL (0.0-0.1); Basophils % 1.1 %; Eosinophils # 0.4 10^3/uL (0.0-0.8); Eosinophils % 2.4 %; Hematocrit 32.1 % (36-47); Lymphocytes # 2.4 10^3/uL (0.8-4.8); Lymphocytes % 15.5 %; Mean Corpuscular HGB Conc 28.3 g/dL (30-55); Mean Corpuscular Hemoglobin 21.8 pg (27-33); Mean Corpuscular Volume 76.8 fl (85-98); Mean Platelet Volume 9.9 fL (7.4-10.4); Monocytes # 1.7 10^3/uL (0.2-0.9); Monocytes % 10.8 %; Neutrophils # 10.51 10^3/uL (1.8-7.7); Neutrophils % 67.8 %; Nucleated Red Blood Cells % 0.1 %; Platelet Count 360 10^3/cmm (157-399); Red Blood Count 4.18 10^6/uL (3.85-5.65); Red Cell Distribution Width 21.6 % (12.1-15.1); White Blood Count 15.52 10^3/uL (3.29-11.43)
[2023-08-17 04:59] LABS: Alanine Aminotransferase 8 U/L (0-33); Albumin Level 3.1 g/dL (3.5-5.2); Alkaline Phosphatase 170 U/L (35-105); Anion Gap 13.2 (5-19); Aspartate Amino Transferase 9 U/L (0-32); Blood Urea Nitrogen 17 mg/dL (8-23); Calcium 8.1 mg/dL (8.5-10.5); Carbon Dioxide 27 mmol/L (22-29); Chloride 98 mmol/L (98-107); Globulin 3.3 g/dL (1.3-4.6); Glucose 142 mg/dL (65-115); Osmolality Calculated 282 mOsm/kg (285-295); Potassium 4.2 mmol/L (3.5-5.1); Sodium 134 mmol/L (136-145); Total Bilirubin 0.3 mg/dL (0.15-1.2); Total Protein 6.4 g/dL (6.6-8.7)
[2023-08-17] MEDS: meropenem 1,000 MG in sodium chloride 0.9% (plus) 50 ML 100 MG IV ×3 (06:20→20:32)
[2023-08-17] MEDS: sucralfate 1 gm/10 mL Oral Liq UDC PO ×4 (06:20→20:32)
[2023-08-17] MEDS: pantoprazole 40 mg SDV IVP ×2 (06:20→17:20)
[2023-08-17 07:27] LABS: Glucose Point of Care 154 mg/dL (70-110)
[2023-08-17] MEDS: duloxetine 60 mg Capsule PO (08:35)
[2023-08-17] MEDS: dilTIAZem ER (24HR) 180 mg Capsule PO (08:35)
[2023-08-17] MEDS: ropinirole 1 mg Tablet PO (08:35)
[2023-08-17] MEDS: insulin lispro 100 unit/1 mL SUBCUT ×4 (08:35→21:05)
[2023-08-17] MEDS: atorvastatin 40 mg Tablet 80 MG PO (08:35)
[2023-08-17] MEDS: insulin glargine 100 units/1 mL 30 UNIT SUBCUT ×2 (08:36→17:21)
[2023-08-17 10:46] LABS: Vancomycin Trough 18.4 ug/mL (10-15)
[2023-08-17] MEDS: HYDROcodone-acetaminophen 5-325 mg Tablet 1 TAB PO (11:16)
[2023-08-17] MEDS: vancomycin 1,250 MG/250 ML PIGGYBACK 250 MG IV ×2 (11:16→21:06)
--- NOTE | 2023-08-17 11:22 | PC.SOCIAL ---
IMM Update pg 2 of IMM updated and reviewed w/ patients daughter Belen who is @ bedside. Copy provided and copy dated, initialed and placed in chart.
[2023-08-17 11:30] LABS: Glucose Point of Care 174 mg/dL (70-110)
[2023-08-17 12:28] LABS: Methicillin-Resist S.aureu PCR DETECTED (NOT DETECTED)
--- NOTE | 2023-08-17 13:18 | P.PN_ITS ---
Subjective 2 Subjective: No acute events overnight. Seen with daughter at bedside. IV line being replaced. Complaining of mild headache. Denies any nausea, vomiting, headache. Has remained hemodynamically stable and afebrile. Vitals/I&O/Wt Last Vital Signs Temp 97.6 F 08/17/23 11:35 Pulse 91 08/17/23 11:35 Resp 16 08/17/23 11:35 BP 120/73 08/17/23 11:35 Pulse Ox 96 08/17/23 11:35 O2 Del Method Nasal Cannula 08/17/23 11:35 O2 Flow Rate 3 08/17/23 10:18 08/16/23 08/17/23 08/17/23 22:59 06:59 14:59 Intake Total 210 / 510 1150 / 1660 240 / 240 Balance 210 / 510 1150 / 1660 240 / 240 Weight last 48 hrs Weight 108.59 kg Weight 101.877 kg Weight 110.223 kg Physical Exam 2 Narrative: General: No acute distress, AO x3, morbidly obese, pallor present, distressed and occasionally crying on the thought of staying in hospital HEENT: PERRLA, pupils bilaterally equal and reactive Chest: Normal vesicular breath sounds, no added sounds, equal good air entry bilaterally CVS: S1-S2 irregularly irregular, no murmurs, no tachycardia, no gallops, no rubs Abdomen: Soft, nontender, no organomegaly, bowel sounds present Neuro: No focal deficits, no facial deformity, AO x3, Skin: OTHER: Data 08/17/23 04:20 08/17/23 04:20 Micro: Microbiology 08/15/23 21:49 Blood Culture - Preliminary Blood NEGATIVE TO DATE 08/15/23 21:49 Blood Culture - Preliminary Blood NEGATIVE TO DATE 08/16/23 13:11 Occult Blood (FIT) - Final Stool - Stool Aspirate 08/14/23 01:25 Blood Culture - Preliminary Blood Staphylococcus aureus 08/15/23 23:25 Bacterial Antigens - Final Urine,Clean Catch A&P Assessment and plan (1) Staphylococcus aureus bacteremia: Blood cultures from admission 3 bottles positive for Staph aureus with concerns for MRSA. No active source of infection. Patient does have a small skin tear on the right hip as above. Denies back pain. Denies any hardware. Appreciate CT thoracolumbar and CT abdomen pelvis without any active source of infection. Echocardiogram results appreciated for a poor echo windows with normal p.o. systolic function, grade 1 diastolic dysfunction with mild LA dilatation and mild MR. Repeat blood cultures so far negative. Will continue to monitor. For now continue with IV vancomycin and meropenem. Patient is allergic to penicillin. Will plan for PICC line placement once blood cultures are negative. Patient will most likely need 6 weeks of IV antibiotics as an outpatient. Patient does have a poor IV access. If needed will plan for midline placement first till we have a negative blood culture. (2) Anemia: Hemoglobin stable. Post 2 unit of blood transfusion. Appreciate iron panel. Continue on IV iron supplementation. Will finish overall 1 g of dose. Appreciate vitamin B12, folate and reticulocyte count. Continue with Protonix 40 mg IV twice daily along with Carafate ACHS. Discussed with patient and daughter regarding further treatment options with need for being off Eliquis for next few weeks. We did discuss being off Eliquis she will be at higher risk of stroke. Daughter verbalized understanding and is agreeable to hold Eliquis for now. Plan will be to hold Eliquis for next 2 weeks and restart afterwards. Recheck hemoglobin in a week after his restarting Eliquis. Meanwhile she will be on Protonix twice daily along with Carafate ACHS. (3) Hyponatremia: Most likely in setting of mild fluid overload. Currently resolved. Monitor BMP daily for now. Continue with fluid restriction up to 1500 cc. Will redose Lasix as needed. Patient would benefit to discharge on oral Lasix 20 mg daily at home. If needed will start on oral salt supplementation. (4) Diabetes mellitus: Past history of uncontrolled hyperglycemia. A1c down to 7.5 now. Insulin sliding scale at mild dose protocol. Continue with Lantus at 30 units twice daily for now. Patient takes 45 units twice daily and 10 units of Humalog 3 times daily. (5) Fluid overload: Fluid restriction of up to 1500 cc. (6) Chronic atrial fibrillation: Close mild tachycardia. Increase dose of Cardizem to 180 mg daily. Hold Eliquis as above. (7) Coronary artery disease: (8) On apixaban therapy: (9) Leukocytosis: Unknown etiology. Blood cultures positive as above. Further workup as above. Will continue to monitor. Plan CODE STATUS: Discussed in detail with patient and daughter at bedside. Daughter will be DPOA. Full code. Start on full liquid diet carb consistent. Protonix for PUD prophylaxis SCDs for DVT prophylaxis. Discharge plan: Plan to discharge back to SNF on IV antibiotics for overall 4 weeks after first negative blood cultures and PICC line placement. Care discussed in detail with patient's daughter at bedside. All the questions were answered. Attestations 2 Medical Necessity Statement*: Requires further hospitalization for management of MRSA bacteremia with unknown source while negative blood cultures are awaited in patient admitted for acute anemia and hyponatremia Diagnoses Staphylococcus aureus bacteremia R78.81; B95.61 Anemia D64.9 Hyponatremia E87.1 Type 2 diabetes mellitus with hyperglycemia, with long-term current use of insulin E11.9 Fluid overload E87.70 Chronic atrial fibrillation I48.20 Coronary artery disease I25.10 On apixaban therapy Z79.01 Leukocytosis D72.829
[2023-08-17] MEDS: iron sucrose 200 MG in sodium chloride 0.9% (100 ml) 100 ML 220 MG IV (15:06)
[2023-08-17 17:05] LABS: Glucose Point of Care 165 mg/dL (70-110)
--- NOTE | 2023-08-17 18:54 | PC.NURSE ---
Patient was ready for discharge awhile ago but his daughter for got his oxygen that he gets from the [facility] He lives in [place]. Daughter went home to get his oxygen and will be back to pick him up as soon as she can.
[2023-08-17 20:44] LABS: Glucose Point of Care 211 mg/dL (70-110)
[2023-08-18] VITALS (8 sets, daily range): BP systolic 94–133; BP diastolic 58–77; PULSE 86–99; RESP 18–19; TEMP 36.1–37; O2SAT 90–95; BMI 41.9
[2023-08-18 04:24] LABS: Basophils # 0.1 10^3/uL (0.0-0.1); Basophils % 1.2 %; Eosinophils # 0.4 10^3/uL (0.0-0.8); Lymphocytes # 1.9 10^3/uL (0.8-4.8); Lymphocytes % 15.7 %; Mean Corpuscular HGB Conc 27.3 g/dL (30-55); Mean Corpuscular Hemoglobin 21.7 pg (27-33); Mean Corpuscular Volume 79.5 fl (85-98); Mean Platelet Volume 10.6 fL (7.4-10.4); Monocytes # 1.3 10^3/uL (0.2-0.9); Monocytes % 10.5 %; Neutrophils # 8.21 10^3/uL (1.8-7.7); Neutrophils % 67.4 %; Nucleated Red Blood Cells % 0.2 %; Platelet Count 362 10^3/cmm (157-399); Red Blood Count 4.15 10^6/uL (3.85-5.65); Red Cell Distribution Width 22.5 % (12.1-15.1); White Blood Count 12.17 10^3/uL (3.29-11.43)
[2023-08-18 04:49] LABS: Alanine Aminotransferase 9 U/L (0-33); Albumin Level 3.1 g/dL (3.5-5.2); Alkaline Phosphatase 169 U/L (35-105); Anion Gap 14.9 (5-19); Aspartate Amino Transferase 10 U/L (0-32); Blood Urea Nitrogen 14 mg/dL (8-23); Calcium 8.7 mg/dL (8.5-10.5); Carbon Dioxide 26 mmol/L (22-29); Chloride 100 mmol/L (98-107); Globulin 3.6 g/dL (1.3-4.6); Glucose 154 mg/dL (65-115); Osmolality Calculated 286 mOsm/kg (285-295); Potassium 4.9 mmol/L (3.5-5.1); Sodium 136 mmol/L (136-145); Total Bilirubin 0.2 mg/dL (0.15-1.2); Total Protein 6.7 g/dL (6.6-8.7)
[2023-08-18] MEDS: pantoprazole 40 mg SDV IVP ×2 (05:58→18:24)
[2023-08-18] MEDS: meropenem 1,000 MG in sodium chloride 0.9% (plus) 50 ML 100 MG IV ×2 (05:58→13:45)
[2023-08-18] MEDS: HYDROcodone-acetaminophen 5-325 mg Tablet 1 TAB PO ×3 (05:59→20:22)
[2023-08-18] MEDS: sucralfate 1 gm/10 mL Oral Liq UDC PO ×4 (05:59→20:23)
[2023-08-18 06:26] LABS: Glucose Point of Care 161 mg/dL (70-110)
[2023-08-18] MEDS: insulin glargine 100 units/1 mL 30 UNIT SUBCUT ×2 (08:27→18:25)
[2023-08-18] MEDS: atorvastatin 40 mg Tablet 80 MG PO (08:27)
[2023-08-18] MEDS: ropinirole 1 mg Tablet PO (08:27)
[2023-08-18] MEDS: insulin lispro 100 unit/1 mL SUBCUT ×4 (08:27→22:28)
[2023-08-18] MEDS: duloxetine 60 mg Capsule PO (08:27)
[2023-08-18] MEDS: dilTIAZem ER (24HR) 180 mg Capsule PO (08:27)
[2023-08-18] MEDS: vancomycin 1,250 MG/250 ML PIGGYBACK 250 MG IV (10:50)
[2023-08-18 11:34] LABS: Glucose Point of Care 200 mg/dL (70-110)
[2023-08-18] MEDS: iron sucrose 200 MG in sodium chloride 0.9% (100 ml) 100 ML 220 MG IV (14:35)
--- NOTE | 2023-08-18 15:48 | P.PN_ITS ---
Subjective 2 Subjective: No acute events overnight. Today morning patient seen laying comfortably in bed. States she has no new complaints. Seen with family at bedside. Denies nausea, vomiting, headache. Vitals/I&O/Wt Last Vital Signs Temp 97.9 F 08/18/23 12:15 Pulse 91 08/18/23 12:15 Resp 18 08/18/23 08:52 BP 94/58 08/18/23 07:51 Pulse Ox 92 08/18/23 08:54 O2 Del Method Nasal Cannula 08/18/23 08:54 O2 Flow Rate 3 08/18/23 08:54 08/18/23 08/18/23 08/18/23 06:59 14:59 22:59 Intake Total 50 / 1600 250 / 250 Balance 50 / 1600 250 / 250 Weight last 48 hrs Weight 110.767 kg Weight 108.59 kg Physical Exam 2 Narrative: General: No acute distress, AO x3, morbidly obese, pallor present, distressed and occasionally crying on the thought of staying in hospital HEENT: PERRLA, pupils bilaterally equal and reactive Chest: Normal vesicular breath sounds, no added sounds, equal good air entry bilaterally CVS: S1-S2 irregularly irregular, no murmurs, no tachycardia, no gallops, no rubs Abdomen: Soft, nontender, no organomegaly, bowel sounds present Neuro: No focal deficits, no facial deformity, AO x3, Skin: OTHER: Data 08/18/23 03:04 08/18/23 03:04 Micro: Microbiology 08/15/23 23:25 Urine Culture - Final Urine,Clean Catch 08/14/23 01:25 Blood Culture - Preliminary Blood Methicillin Resis Staph Aureus A&P Assessment and plan (1) Staphylococcus aureus bacteremia: Blood cultures from admission 3 bottles positive for Staph aureus with concerns for MRSA. No active source of infection. Patient does have a small skin tear on the right hip as above. Denies back pain. Denies any hardware. Appreciate CT thoracolumbar and CT abdomen pelvis without any active source of infection. Echocardiogram results appreciated for a poor echo windows with normal p.o. systolic function, grade 1 diastolic dysfunction with mild LA dilatation and mild MR. Repeat blood cultures so far negative. Will continue to monitor. For now continue with IV vancomycin and meropenem. Patient is allergic to penicillin. Will plan for PICC line placement once blood cultures are negative. Patient will most likely need 6 weeks of IV antibiotics as an outpatient. Patient does have a poor IV access. If needed will plan for midline placement first till we have a negative blood culture. (2) Anemia: Hemoglobin stable. Post 2 unit of blood transfusion. Appreciate iron panel. Continue on IV iron supplementation. Will finish overall 1 g of dose. Appreciate vitamin B12, folate and reticulocyte count. Continue with Protonix 40 mg IV twice daily along with Carafate ACHS. Discussed with patient and daughter regarding further treatment options with need for being off Eliquis for next few weeks. We did discuss being off Eliquis she will be at higher risk of stroke. Daughter verbalized understanding and is agreeable to hold Eliquis for now. Plan will be to hold Eliquis for next 2 weeks and restart afterwards. Recheck hemoglobin in a week after his restarting Eliquis. Meanwhile she will be on Protonix twice daily along with Carafate ACHS. (3) Hyponatremia: Most likely in setting of mild fluid overload. Currently resolved. Monitor BMP daily for now. Continue with fluid restriction up to 1500 cc. Will redose Lasix as needed. Patient would benefit to discharge on oral Lasix 20 mg daily at home. If needed will start on oral salt supplementation. (4) Diabetes mellitus: Past history of uncontrolled hyperglycemia. A1c down to 7.5 now. Insulin sliding scale at mild dose protocol. Continue with Lantus at 30 units twice daily for now. Patient takes 45 units twice daily and 10 units of Humalog 3 times daily. (5) Fluid overload: Fluid restriction of up to 1500 cc. (6) Chronic atrial fibrillation: Close mild tachycardia. Increase dose of Cardizem to 180 mg daily. Hold Eliquis as above. (7) Coronary artery disease: (8) On apixaban therapy: (9) Leukocytosis: Unknown etiology. Blood cultures positive as above. Further workup as above. Will continue to monitor. Plan CODE STATUS: Discussed in detail with patient and daughter at bedside. Daughter will be DPOA. Full code. Start on full liquid diet carb consistent. Protonix for PUD prophylaxis SCDs for DVT prophylaxis. Discharge plan: Plan to discharge back to SNF on IV antibiotics for overall 4 weeks after first negative blood cultures and PICC line placement. Plan for the day: Leukocytosis resolving. Hemoglobin has remained stable. Sodium levels are normal now. Follow-up blood cultures. For now repeat blood cultures sent from 08/15 negative. Blood cultures from 08/14 3 out of 4 bottles shows MRSA. Appreciate vancomycin trough levels. Continue vancomycin 1.25 mg every 12 hourly. Discontinue meropenem. Continue with IV iron supplementation to finish a 5-day course. Last dose on 08/20. Heart rate better controlled. Continue with increased dose of Cardizem at 180 mg oral daily. Attestations 2 Medical Necessity Statement*: Requires further hospitalization for management of MRSA bacteremia while negative blood cultures are awaited, outpatient antibiotics are set up Diagnoses Staphylococcus aureus bacteremia R78.81; B95.61 Anemia D64.9 Hyponatremia E87.1 Type 2 diabetes mellitus with hyperglycemia, with long-term current use of insulin E11.9 Fluid overload E87.70 Chronic atrial fibrillation I48.20 Coronary artery disease I25.10 On apixaban therapy Z79.01 Leukocytosis D72.829
[2023-08-18 16:37] LABS: Glucose Point of Care 214 mg/dL (70-110)
[2023-08-18 21:22] LABS: Vancomycin Trough 22.3 ug/mL (10-15)
[2023-08-18 21:32] LABS: Glucose Point of Care 287 mg/dL (70-110)
[2023-08-19] VITALS (9 sets, daily range): BP systolic 98–130; BP diastolic 54–78; PULSE 80–93; RESP 17–20; TEMP 36.4–36.7; O2SAT 91–95; BMI 42.9
[2023-08-19] MEDS: HYDROcodone-acetaminophen 5-325 mg Tablet 1 TAB PO ×4 (01:24→21:57)
[2023-08-19] MEDS: vancomycin 1,000 MG in sodium chloride 0.9% 250 ML 250 MG IV ×2 (01:25→14:45)
[2023-08-19 03:55] LABS: Basophils # 0.1 10^3/uL (0.0-0.1); Basophils % 1.1 %; Eosinophils # 0.3 10^3/uL (0.0-0.8); Eosinophils % 2.5 %; Hematocrit 34.3 % (36-47); Lymphocytes # 3.2 10^3/uL (0.8-4.8); Lymphocytes % 23.8 %; Mean Corpuscular HGB Conc 27.4 g/dL (30-55); Mean Corpuscular Hemoglobin 21.5 pg (27-33); Mean Corpuscular Volume 78.3 fl (85-98); Mean Platelet Volume 10.1 fL (7.4-10.4); Monocytes # 1.6 10^3/uL (0.2-0.9); Neutrophils % 58.6 %; Nucleated Red Blood Cells % 0 %; Platelet Count 376 10^3/cmm (157-399); Red Blood Count 4.38 10^6/uL (3.85-5.65); Red Cell Distribution Width 22.6 % (12.1-15.1)
[2023-08-19 04:17] LABS: Alanine Aminotransferase 8 U/L (0-33); Albumin Level 3.2 g/dL (3.5-5.2); Alkaline Phosphatase 173 U/L (35-105); Blood Urea Nitrogen 13 mg/dL (8-23); Calcium 8.5 mg/dL (8.5-10.5); Carbon Dioxide 27 mmol/L (22-29); Chloride 99 mmol/L (98-107); Globulin 3.5 g/dL (1.3-4.6); Glucose 65 mg/dL (65-115); Osmolality Calculated 278 mOsm/kg (285-295); Sodium 135 mmol/L (136-145); Total Bilirubin 0.2 mg/dL (0.15-1.2); Total Protein 6.7 g/dL (6.6-8.7)
[2023-08-19 04:18] LABS: Anion Gap 13.3 (5-19); Aspartate Amino Transferase 13 U/L (0-32); Potassium 4.3 mmol/L (3.5-5.1)
[2023-08-19] MEDS: pantoprazole 40 mg SDV IVP ×2 (06:31→17:00)
[2023-08-19] MEDS: sucralfate 1 gm/10 mL Oral Liq UDC PO ×4 (06:31→21:57)
[2023-08-19 06:49] LABS: Glucose Point of Care 91 mg/dL (70-110)
[2023-08-19] MEDS: insulin glargine 100 units/1 mL 30 UNIT SUBCUT ×2 (08:25→17:00)
[2023-08-19] MEDS: dilTIAZem ER (24HR) 180 mg Capsule PO (08:25)
[2023-08-19] MEDS: duloxetine 60 mg Capsule PO (08:25)
[2023-08-19] MEDS: atorvastatin 40 mg Tablet 80 MG PO (08:25)
[2023-08-19] MEDS: ropinirole 1 mg Tablet PO (08:25)
[2023-08-19 11:47] LABS: Glucose Point of Care 167 mg/dL (70-110)
[2023-08-19] MEDS: insulin lispro 100 unit/1 mL SUBCUT ×2 (12:04→17:06)
--- NOTE | 2023-08-19 13:12 | P.PN_ITS ---
Subjective 2 Subjective: No acute vents overnight. Patient has been hemodynamically stable and afebrile. Resting comfortably in bed today. Denies any nausea, vomiting, headache. Blood glucose level elevated morning found to be 65. Vitals/I&O/Wt Last Vital Signs Temp 97.5 F L 08/19/23 11:49 Pulse 93 08/19/23 11:49 Resp 20 H 08/19/23 11:49 BP 121/78 08/19/23 11:49 Pulse Ox 91 08/19/23 11:49 O2 Del Method Nasal Cannula 08/19/23 11:49 O2 Flow Rate 3 08/19/23 07:39 08/18/23 08/19/23 08/19/23 22:59 06:59 14:59 Intake Total 160 / 410 250 / 660 Balance 160 / 410 250 / 660 Weight last 48 hrs Weight 113.489 kg Weight 110.767 kg Physical Exam 2 Narrative: General: No acute distress, AO x3, morbidly obese, pallor present, distressed and occasionally crying on the thought of staying in hospital HEENT: PERRLA, pupils bilaterally equal and reactive Chest: Normal vesicular breath sounds, no added sounds, equal good air entry bilaterally CVS: S1-S2 irregularly irregular, no murmurs, no tachycardia, no gallops, no rubs Abdomen: Soft, nontender, no organomegaly, bowel sounds present Neuro: No focal deficits, no facial deformity, AO x3, Skin: OTHER: Data 08/19/23 03:00 08/19/23 03:00 Micro: Microbiology 08/15/23 23:25 Urine Culture - Final Urine,Clean Catch A&P Assessment and plan (1) Staphylococcus aureus bacteremia: Blood cultures from admission 3 bottles positive for Staph aureus with concerns for MRSA. No active source of infection. Patient does have a small skin tear on the right hip as above. Denies back pain. Denies any hardware. Appreciate CT thoracolumbar and CT abdomen pelvis without any active source of infection. Echocardiogram results appreciated for a poor echo windows with normal p.o. systolic function, grade 1 diastolic dysfunction with mild LA dilatation and mild MR. Repeat blood cultures so far negative. Will continue to monitor. For now continue with IV vancomycin and meropenem. Patient is allergic to penicillin. Will plan for PICC line placement once blood cultures are negative. Patient will most likely need 6 weeks of IV antibiotics as an outpatient. Patient does have a poor IV access. If needed will plan for midline placement first till we have a negative blood culture. (2) Anemia: Hemoglobin stable. Post 2 unit of blood transfusion. Appreciate iron panel. Continue on IV iron supplementation. Will finish overall 1 g of dose. Appreciate vitamin B12, folate and reticulocyte count. Continue with Protonix 40 mg IV twice daily along with Carafate ACHS. Discussed with patient and daughter regarding further treatment options with need for being off Eliquis for next few weeks. We did discuss being off Eliquis she will be at higher risk of stroke. Daughter verbalized understanding and is agreeable to hold Eliquis for now. Plan will be to hold Eliquis for next 2 weeks and restart afterwards. Recheck hemoglobin in a week after his restarting Eliquis. Meanwhile she will be on Protonix twice daily along with Carafate ACHS. (3) Hyponatremia: Most likely in setting of mild fluid overload. Currently resolved. Monitor BMP daily for now. Continue with fluid restriction up to 1500 cc. Will redose Lasix as needed. Patient would benefit to discharge on oral Lasix 20 mg daily at home. If needed will start on oral salt supplementation. (4) Diabetes mellitus: Past history of uncontrolled hyperglycemia. A1c down to 7.5 now. Insulin sliding scale at mild dose protocol. Continue with Lantus at 30 units twice daily for now. Patient takes 45 units twice daily and 10 units of Humalog 3 times daily. (5) Fluid overload: Fluid restriction of up to 1500 cc. (6) Chronic atrial fibrillation: Close mild tachycardia. Increase dose of Cardizem to 180 mg daily. Hold Eliquis as above. (7) Coronary artery disease: (8) On apixaban therapy: (9) Leukocytosis: Unknown etiology. Blood cultures positive as above. Further workup as above. Will continue to monitor. Plan CODE STATUS: Discussed in detail with patient and daughter at bedside. Daughter will be DPOA. Full code. Start on full liquid diet carb consistent. Protonix for PUD prophylaxis SCDs for DVT prophylaxis. Discharge plan: Plan to discharge back to SNF on IV antibiotics for overall 4 weeks after first negative blood cultures and PICC line placement. Plan for the day: Hemoglobin and sodium levels have remained stable. Pearson trough level sufficient. Continue with vancomycin 1.25 mg every 12 hourly. Blood cultures taken from 08/15 so far not updated after 08/16. So we will hold off on PICC line for now. ID consultation for further recommendations and management. Continue with IV iron supplementation. Continue with Cardizem 180 mg oral daily. Blood glucose level earlier today morning 65. First time blood sugars have been low. Hypoglycemia protocol. Continue with current management of 30 units of Lantus twice daily and sliding scale before meals and at bedtime at low-dose protocol. Attestations 2 Medical Necessity Statement*: Requires further hospitalization for management of MRSA bacteremia while outpatient antibiotics and repeat negative blood cultures are awaited in a patient was admitted for acute anemia and hyponatremia Diagnoses Staphylococcus aureus bacteremia R78.81; B95.61 Anemia D64.9 Hyponatremia E87.1 Type 2 diabetes mellitus with hyperglycemia, with long-term current use of insulin E11.9 Fluid overload E87.70 Chronic atrial fibrillation I48.20 Coronary artery disease I25.10 On apixaban therapy Z79.01 Leukocytosis D72.829
--- NOTE | 2023-08-19 13:42 | XRR_ITS ---
PROCEDURE INFORMATION: Exam: XR Chest Exam date and time: 08/19/2023 2:27 PM Age: 78 years old Clinical indication: Device placement; Patient HX: Picc placement; Additional info: Post picc insertion, lydia placing on ms room 254. Will call when ready TECHNIQUE: Imaging protocol: Radiologic exam of the chest. Views: 1 view. Total images: [id number] COMPARISON: CR XR chest 1V portable [id number] 01/26/2023 7:00 AM FINDINGS: Tubes, catheters and devices: Right PICC line is noted with the tip at the caval atrial junction. Lungs: Nonspecific mild left lung base opacity favors atelectasis or pneumonia. Pleural spaces: Unremarkable. No pleural effusion. No pneumothorax. Heart/Mediastinum: Mild cardiomegaly stable. Bones/joints: Osseous structures are unchanged from the prior exam. XR/XR chest 1V portable [id number] IMPRESSION: 1. Right PICC line is noted with the tip at the caval atrial junction. 2. Mild cardiomegaly stable. 3. Nonspecific mild left lung base opacity favors atelectasis or pneumonia.
--- NOTE | 2023-08-19 14:20 | PC.NURSE ---
Single lumen PICC placed to right basilic vein. Referred to vascular access nurse for PICC placement for 6 weeks IV antibiotics. Risks and benefits discussed and informed consent obtained from patient. Right arm assessed with right basilic vein measuring 6.0 mm, straight, and apparent best choice for placement. Using sterile technique and MST, right basilc vein accessed x 1 stick. Mid-arm circumference measured 10 cm from right AC 48 cm. Trimmed cath 42 cm with 1 cm external length noted. CXR appears to show tip in distal SVC, awaiting radiologist to read report. Line secured with stat-lock. Insertion site covered with Biopatch and TSM. Report given to bedside nurseNikki.
[2023-08-19 16:50] LABS: Glucose Point of Care 186 mg/dL (70-110)
[2023-08-19] MEDS: iron sucrose 200 MG in sodium chloride 0.9% (100 ml) 100 ML 220 MG IV (16:52)
[2023-08-19 21:19] LABS: Glucose Point of Care 129 mg/dL (70-110)
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
[2023-08-20] VITALS (10 sets, daily range): BP systolic 103–139; BP diastolic 65–82; PULSE 84–96; RESP 18–19; TEMP 36.4–36.8; O2SAT 90–98; BMI 41.5
[2023-08-20] MEDS: vancomycin 1,000 MG in sodium chloride 0.9% 250 ML 250 MG IV ×2 (01:07→18:23)
[2023-08-20 03:02] LABS: Basophils # 0.1 10^3/uL (0.0-0.1); Basophils % 1.2 %; Eosinophils # 0.4 10^3/uL (0.0-0.8); Eosinophils % 3.2 %; Hematocrit 29.8 % (36-47); Lymphocytes # 2.2 10^3/uL (0.8-4.8); Lymphocytes % 20.3 %; Mean Corpuscular HGB Conc 27.9 g/dL (30-55); Mean Corpuscular Volume 78.8 fl (85-98); Monocytes # 1.3 10^3/uL (0.2-0.9); Monocytes % 11.7 %; Neutrophils # 6.75 10^3/uL (1.8-7.7); Neutrophils % 62.1 %; Nucleated Red Blood Cells % 0 %; Platelet Count 290 10^3/cmm (157-399); Red Blood Count 3.78 10^6/uL (3.85-5.65); White Blood Count 10.86 10^3/uL (3.29-11.43)
[2023-08-20 03:24] LABS: Alanine Aminotransferase 9 U/L (0-33); Albumin Level 2.8 g/dL (3.5-5.2); Alkaline Phosphatase 159 U/L (35-105); Aspartate Amino Transferase 14 U/L (0-32); Blood Urea Nitrogen 12 mg/dL (8-23); Calcium 8.3 mg/dL (8.5-10.5); Carbon Dioxide 29 mmol/L (22-29); Chloride 101 mmol/L (98-107); Globulin 3.2 g/dL (1.3-4.6); Glucose 115 mg/dL (65-115); Osmolality Calculated 279 mOsm/kg (285-295); Sodium 134 mmol/L (136-145); Total Bilirubin 0.2 mg/dL (0.15-1.2)
[2023-08-20 03:27] LABS: Anion Gap 7.9 (5-19); Potassium 3.9 mmol/L (3.5-5.1)
[2023-08-20 07:00] LABS: Glucose Point of Care 89 mg/dL (70-110)
[2023-08-20] MEDS: sucralfate 1 gm/10 mL Oral Liq UDC PO ×4 (07:29→20:27)
[2023-08-20] MEDS: pantoprazole 40 mg SDV IVP ×2 (07:30→17:13)
[2023-08-20] MEDS: ropinirole 1 mg Tablet PO (08:23)
[2023-08-20] MEDS: insulin glargine 100 units/1 mL 30 UNIT SUBCUT ×2 (08:23→17:13)
[2023-08-20] MEDS: atorvastatin 40 mg Tablet 80 MG PO (08:23)
[2023-08-20] MEDS: duloxetine 60 mg Capsule PO (08:23)
[2023-08-20] MEDS: dilTIAZem ER (24HR) 180 mg Capsule PO (08:23)
[2023-08-20 11:02] LABS: Glucose Point of Care 182 mg/dL (70-110)
[2023-08-20] MEDS: insulin lispro 100 unit/1 mL SUBCUT ×2 (11:22→20:28)
[2023-08-20 12:19] LABS: Vancomycin Trough 26.5 ug/mL (10-15)
--- NOTE | 2023-08-20 12:27 | PC.PHAR ---
Vancomycin Pharmacy to Dose for high trough of 26.5 Changed from 1 gm q12h to 1 gm q18h Use this page to adjust dose, Tinf, or tau when only a TROUGH is taken. VANCOMYCIN or AMINOGLYCOSIDE: VANCO mg/kg Last Name Sparks Dose(mg) 1000 13.04 First Name Purvi Tinf (hrs) 1 hrs : 43 Tau=freq (hrs) 12 hrs Location: 254-2 Cmax (calculated) 43.0 mcg/ml Cpeak (calculated) 41.2 mcg/ml Sex (M/F) F Cmin (trough): 26.5 mcg/ml AGE (yrs) 78 Calculated Vd: 57.5 liters Ht (inches) 64.0 Calculated Ke: 0.042 hrs-1 ABW (Kg) 109.6 Calculated T1/2: 16.48 hrs IBW (Kg) 54.7 mg/kg DW (Kg) 76.7 NEW Dose (mg) 1000 13.04 NEW Tinf (hrs) 1 NEW Tau (hrs) 18 VANCO GENT TARGETS Expected Cmax: 32.1 Targets Standard Dosing High Dose Expected Cpeak: 30.8 25 to 40 6 - 12 mcg/ml 20 - 24 mcg/ml Expected Cmin: 15.7 10 to 20 0.5 - 2 mcg/ml < 1 mcg/ml WHEN DO I GIVE THE NEXT DOSE? When will the Blood Conc. Be Equal to my New Expected Cmin? If Dose was HELD If Dose was GIVEN Give Next Dose In: (From time trough drawn) 12 hrs 24 hrs [address] will the Conc. Be if I wait : 12.4 mcg/ml 20.6 mcg/ml 18 hrs
--- NOTE | 2023-08-20 13:46 | PC.OT ---
OT EVALUATION ATTEMPTED THIS P.M. PATIENT IS SLEEPING SOUNDLY AND UNABLE TO AWAKEN TO VOICE WHEN NAME CALLED TWICE. WILL ATTEMPT AGAIN TOMORROW.
--- NOTE | 2023-08-20 15:18 | P.PN_ITS ---
Subjective 2 Subjective: Seen this morning. No acute events overnight. Patient afebrile. Blood cultures pending. Hemoglobin 8.30/stable. Vanco trough 26.5. Vitals/I&O/Wt Last Vital Signs Temp 97.5 F L 08/20/23 12:18 Pulse 94 08/20/23 14:00 Resp 18 08/20/23 12:18 BP 133/81 08/20/23 12:18 Pulse Ox 94 08/20/23 12:18 O2 Del Method Nasal Cannula 08/20/23 12:18 O2 Flow Rate 3 08/20/23 08:16 08/20/23 08/20/23 08/20/23 06:59 14:59 22:59 Intake Total 250 / 1610 840 / 840 Balance 250 / 1610 840 / 840 Weight last 48 hrs Weight 109.633 kg Weight 109.633 kg Weight 109.633 kg Weight 113.489 kg Physical Exam 2 Narrative: General: No acute distress, AO x3 HEENT: PERRLA, pupils bilaterally equal and reactive, pallors not present Chest: Normal vesicular breath sounds, no added sounds, equal good air entry bilaterally CVS: S1-S2 regular, no murmurs, no tachycardia, no gallops, no rubs Abdomen: Soft, nontender, no organomegaly, bowel sounds present Neuro: No focal deficits, no facial deformity, AO x3, Data 08/20/23 02:32 08/20/23 02:32 Micro: Microbiology 08/19/23 19:10 Blood Culture - Preliminary Blood SPECIMEN COLLECTED 08/19/23 19:05 Blood Culture - Preliminary Blood SPECIMEN COLLECTED 08/14/23 01:28 Blood Culture - Final Blood Methicillin Resis Staph Aureus 08/14/23 01:25 Blood Culture - Final Blood Methicillin Resis Staph Aureus A&P Assessment and plan (1) Staphylococcus aureus bacteremia: Blood cultures from admission 3 bottles positive for Staph aureus with concerns for MRSA. No active source of infection. Patient does have a small skin tear on the right hip as above. Denies back pain. Denies any hardware. Appreciate CT thoracolumbar and CT abdomen pelvis without any active source of infection. Echocardiogram results appreciated for a poor echo windows with normal p.o. systolic function, grade 1 diastolic dysfunction with mild LA dilatation and mild MR. Repeat blood cultures so far negative. Will continue to monitor. For now continue with IV vancomycin and meropenem. Patient is allergic to penicillin. Will plan for PICC line placement once blood cultures are negative. Patient will most likely need 6 weeks of IV antibiotics as an outpatient. Patient does have a poor IV access. If needed will plan for midline placement first till we have a negative blood culture. (2) Anemia: Hemoglobin stable. Post 2 unit of blood transfusion. Appreciate iron panel. Continue on IV iron supplementation. Will finish overall 1 g of dose. Appreciate vitamin B12, folate and reticulocyte count. Continue with Protonix 40 mg IV twice daily along with Carafate ACHS. Discussed with patient and daughter regarding further treatment options with need for being off Eliquis for next few weeks. We did discuss being off Eliquis she will be at higher risk of stroke. Daughter verbalized understanding and is agreeable to hold Eliquis for now. Plan will be to hold Eliquis for next 2 weeks and restart afterwards. Recheck hemoglobin in a week after his restarting Eliquis. Meanwhile she will be on Protonix twice daily along with Carafate ACHS. (3) Hyponatremia: Most likely in setting of mild fluid overload. Currently resolved. Monitor BMP daily for now. Continue with fluid restriction up to 1500 cc. Will redose Lasix as needed. Patient would benefit to discharge on oral Lasix 20 mg daily at home. If needed will start on oral salt supplementation. (4) Diabetes mellitus: Past history of uncontrolled hyperglycemia. A1c down to 7.5 now. Insulin sliding scale at mild dose protocol. Continue with Lantus at 30 units twice daily for now. Patient takes 45 units twice daily and 10 units of Humalog 3 times daily. (5) Fluid overload: Fluid restriction of up to 1500 cc. (6) Chronic atrial fibrillation: Close mild tachycardia. Increase dose of Cardizem to 180 mg daily. Hold Eliquis as above. (7) Coronary artery disease: (8) On apixaban therapy: (9) Leukocytosis: Unknown etiology. Blood cultures positive as above. Further workup as above. Will continue to monitor. Plan CODE STATUS: Discussed in detail with patient and daughter at bedside. Daughter will be DPOA. Full code. Start on full liquid diet carb consistent. Protonix for PUD prophylaxis SCDs for DVT prophylaxis. Discharge plan: Plan to discharge back to SNF on IV antibiotics for overall 4 weeks after first negative blood cultures and PICC line placement. Plan for the day: Hemoglobin and sodium levels have remained stable. Pearson trough level 26.5. Continue with vancomycin 1.25 mg every 12 hourly. Will adjust dose per pharmacy. Blood cultures taken from 08/15 so far not updated after 08/16. ID consultation for further recommendations and management. Continue with IV iron supplementation. Continue with Cardizem 180 mg oral daily. Continue with Lantus 30 units of Lantus twice daily and sliding scale before meals and at bedtime at low-dose protocol. Do not have a fasting glucose today. Blood glucose level at 2:30 AM was 115. Attestations 2 Medical Necessity Statement*: Await finalization of blood culture. Plan to discharge with 6 weeks of IV antibiotics. Awaiting completion of ID consult. Diagnoses Staphylococcus aureus bacteremia R78.81; B95.61 Anemia D64.9 Hyponatremia E87.1 Type 2 diabetes mellitus with hyperglycemia, with long-term current use of insulin E11.9 Fluid overload E87.70 Chronic atrial fibrillation I48.20 Coronary artery disease I25.10 On apixaban therapy Z79.01 Leukocytosis D72.829
[2023-08-20 16:12] LABS: Glucose Point of Care 130 mg/dL (70-110)
[2023-08-20] MEDS: iron sucrose 200 MG in sodium chloride 0.9% (100 ml) 100 ML 220 MG IV (17:33)
[2023-08-20] MEDS: HYDROcodone-acetaminophen 5-325 mg Tablet 1 TAB PO (18:23)
[2023-08-20 20:22] LABS: Glucose Point of Care 149 mg/dL (70-110)
[2023-08-21] VITALS (8 sets, daily range): BP systolic 119–134; BP diastolic 72–84; PULSE 85–96; RESP 16–18; TEMP 36.4–36.9; O2SAT 92–96
[2023-08-21] MEDS: HYDROcodone-acetaminophen 5-325 mg Tablet 1 TAB PO ×2 (04:06→12:08)
[2023-08-21 04:28] LABS: Basophils # 0.1 10^3/uL (0.0-0.1); Basophils % 1.1 %; Eosinophils # 0.4 10^3/uL (0.0-0.8); Eosinophils % 3.3 %; Hematocrit 31.6 % (36-47); Lymphocytes # 2.1 10^3/uL (0.8-4.8); Lymphocytes % 20.1 %; Mean Corpuscular HGB Conc 27.8 g/dL (30-55); Mean Corpuscular Hemoglobin 21.9 pg (27-33); Mean Corpuscular Volume 78.8 fl (85-98); Mean Platelet Volume 10.4 fL (7.4-10.4); Monocytes # 1.1 10^3/uL (0.2-0.9); Monocytes % 10.5 %; Neutrophils # 6.82 10^3/uL (1.8-7.7); Neutrophils % 64.2 %; Nucleated Red Blood Cells % 0 %; Platelet Count 314 10^3/cmm (157-399); Red Blood Count 4.01 10^6/uL (3.85-5.65); Red Cell Distribution Width 23.7 % (12.1-15.1); White Blood Count 10.64 10^3/uL (3.29-11.43)
[2023-08-21 04:43] LABS: Anion Gap 9.7 (5-19); Blood Urea Nitrogen 11 mg/dL (8-23); Calcium 8.4 mg/dL (8.5-10.5); Carbon Dioxide 31 mmol/L (22-29); Chloride 101 mmol/L (98-107); Glucose 109 mg/dL (65-115); Magnesium 1.4 mg/dL (1.7-2.3); Osmolality Calculated 286 mOsm/kg (285-295); Potassium 3.7 mmol/L (3.5-5.1); Sodium 138 mmol/L (136-145)
[2023-08-21] MEDS: sucralfate 1 gm/10 mL Oral Liq UDC PO ×4 (06:16→21:25)
[2023-08-21] MEDS: pantoprazole 40 mg SDV IVP ×2 (06:17→17:15)
[2023-08-21 06:29] LABS: Glucose Point of Care 92 mg/dL (70-110)
[2023-08-21] MEDS: dilTIAZem ER (24HR) 180 mg Capsule PO (08:03)
[2023-08-21] MEDS: ropinirole 1 mg Tablet PO (08:03)
[2023-08-21] MEDS: duloxetine 60 mg Capsule PO (08:04)
[2023-08-21] MEDS: atorvastatin 40 mg Tablet 80 MG PO (08:04)
[2023-08-21] MEDS: insulin glargine 100 units/1 mL 30 UNIT SUBCUT (08:04)
[2023-08-21] MEDS: magnesium sulfate premix 4 GM/100 ML PREMIX IV (09:27)
[2023-08-21 11:28] LABS: Glucose Point of Care 145 mg/dL (70-110)
[2023-08-21] MEDS: insulin lispro 100 unit/1 mL SUBCUT (11:41)
--- NOTE | 2023-08-21 13:41 | P.PN_ITS ---
Subjective 2 Subjective: Seen this morning. No acute events overnight. ID chart reviewed. Patient awaiting insurance authorization Vitals/I&O/Wt Last Vital Signs Temp 98.4 F 08/21/23 11:24 Pulse 94 08/21/23 11:24 Resp 16 08/21/23 09:20 BP 133/80 08/21/23 11:24 Pulse Ox 94 08/21/23 11:24 O2 Del Method Nasal Cannula 08/21/23 11:24 O2 Flow Rate 3 08/21/23 10:59 08/20/23 08/21/23 08/21/23 22:59 06:59 14:59 Intake Total 840 / 1680 580 / 580 Balance 840 / 1680 580 / 580 Weight last 48 hrs Weight 113.126 kg Weight 109.633 kg Weight 109.633 kg Weight 109.633 kg Physical Exam 2 Narrative: General: No acute distress, AO x3 HEENT: PERRLA, pupils bilaterally equal and reactive, pallors not present Chest: Normal vesicular breath sounds, no added sounds, equal good air entry bilaterally CVS: S1-S2 regular, no murmurs, no tachycardia, no gallops, no rubs Abdomen: Soft, nontender, no organomegaly, bowel sounds present Neuro: No focal deficits, no facial deformity, AO x3, Data 08/21/23 04:15 08/21/23 04:15 Micro: Microbiology 08/15/23 21:49 Blood Culture - Final Blood NO GROWTH AFTER 5 DAYS 08/15/23 21:49 Blood Culture - Final Blood NO GROWTH AFTER 5 DAYS 08/19/23 19:10 Blood Culture - Preliminary Blood NEGATIVE TO DATE 08/19/23 19:05 Blood Culture - Preliminary Blood NEGATIVE TO DATE A&P Assessment and plan (1) Staphylococcus aureus bacteremia: Blood cultures from admission 3 bottles positive for Staph aureus with concerns for MRSA. No active source of infection. Patient does have a small skin tear on the right hip as above. Denies back pain. Denies any hardware. Appreciate CT thoracolumbar and CT abdomen pelvis without any active source of infection. Echocardiogram results appreciated for a poor echo windows with normal p.o. systolic function, grade 1 diastolic dysfunction with mild LA dilatation and mild MR. Repeat blood cultures so far negative. Will continue to monitor. For now continue with IV vancomycin and meropenem. Patient is allergic to penicillin. Will plan for PICC line placement once blood cultures are negative. Patient will most likely need 6 weeks of IV antibiotics as an outpatient. Patient does have a poor IV access. If needed will plan for midline placement first till we have a negative blood culture. (2) Anemia: Hemoglobin stable. Post 2 unit of blood transfusion. Appreciate iron panel. Continue on IV iron supplementation. Will finish overall 1 g of dose. Appreciate vitamin B12, folate and reticulocyte count. Continue with Protonix 40 mg IV twice daily along with Carafate ACHS. Discussed with patient and daughter regarding further treatment options with need for being off Eliquis for next few weeks. We did discuss being off Eliquis she will be at higher risk of stroke. Daughter verbalized understanding and is agreeable to hold Eliquis for now. Plan will be to hold Eliquis for next 2 weeks and restart afterwards. Recheck hemoglobin in a week after his restarting Eliquis. Meanwhile she will be on Protonix twice daily along with Carafate ACHS. (3) Hyponatremia: Most likely in setting of mild fluid overload. Currently resolved. Monitor BMP daily for now. Continue with fluid restriction up to 1500 cc. Will redose Lasix as needed. Patient would benefit to discharge on oral Lasix 20 mg daily at home. If needed will start on oral salt supplementation. (4) Diabetes mellitus: Past history of uncontrolled hyperglycemia. A1c down to 7.5 now. Insulin sliding scale at mild dose protocol. Continue with Lantus at 30 units twice daily for now. Patient takes 45 units twice daily and 10 units of Humalog 3 times daily. (5) Fluid overload: Fluid restriction of up to 1500 cc. (6) Chronic atrial fibrillation: Close mild tachycardia. Increase dose of Cardizem to 180 mg daily. Hold Eliquis as above. (7) Coronary artery disease: (8) On apixaban therapy: (9) Leukocytosis: Unknown etiology. Blood cultures positive as above. Further workup as above. Will continue to monitor. Plan CODE STATUS: Discussed in detail with patient and daughter at bedside. Daughter will be DPOA. Full code. Start on full liquid diet carb consistent. Protonix for PUD prophylaxis SCDs for DVT prophylaxis. Discharge plan: Plan to discharge back to SNF on IV antibiotics for overall 4 weeks after first negative blood cultures and PICC line placement. Plan for the day: Hemoglobin and sodium levels have remained stable. Pearson trough level 26.5 08/20. Continue with vancomycin 1.25 mg every 12 hourly. Will adjust dose per pharmacy. Blood cultures taken from 08/15 so far not updated after 08/16. ID consultation for further recommendations and management. Continue with IV iron supplementation. Continue with Cardizem 180 mg oral daily. Continue with Lantus 25 units of Lantus twice daily and sliding scale before meals and at bedtime at low-dose protocol. Make above adjustments. Pt awaiting insurance authorization. Attestations 2 Medical Necessity Statement*: awaiting insurance authorization to go to [place] Diagnoses Staphylococcus aureus bacteremia R78.81; B95.61 Anemia D64.9 Hyponatremia E87.1 Type 2 diabetes mellitus with hyperglycemia, with long-term current use of insulin E11.9 Fluid overload E87.70 Chronic atrial fibrillation I48.20 Coronary artery disease I25.10 On apixaban therapy Z79.01 Leukocytosis D72.829
[2023-08-21] MEDS: vancomycin 1,000 MG in sodium chloride 0.9% 250 ML 250 MG IV (14:20)
[2023-08-21 16:32] LABS: Glucose Point of Care 93 mg/dL (70-110)
[2023-08-21] MEDS: insulin glargine 100 units/1 mL 25 UNIT SUBCUT (17:16)
[2023-08-21 21:17] LABS: Glucose Point of Care 96 mg/dL (70-110)
[2023-08-22] VITALS (7 sets, daily range): BP systolic 104–142; BP diastolic 62–82; PULSE 83–91; RESP 14–18; TEMP 36.4–36.8; O2SAT 93–95
[2023-08-22] MEDS: pantoprazole 40 mg SDV IVP ×2 (06:03→17:08)
[2023-08-22] MEDS: sucralfate 1 gm/10 mL Oral Liq UDC PO ×4 (06:04→21:19)
[2023-08-22 06:38] LABS: Glucose Point of Care 89 mg/dL (70-110)
[2023-08-22] MEDS: vancomycin 1,000 MG in sodium chloride 0.9% 250 ML 250 MG IV (09:02)
[2023-08-22] MEDS: ropinirole 1 mg Tablet PO (09:03)
[2023-08-22] MEDS: dilTIAZem ER (24HR) 180 mg Capsule PO (09:03)
[2023-08-22] MEDS: duloxetine 60 mg Capsule PO (09:04)
[2023-08-22] MEDS: atorvastatin 40 mg Tablet 80 MG PO (09:04)
[2023-08-22] MEDS: insulin glargine 100 units/1 mL 25 UNIT SUBCUT (09:26)
[2023-08-22] MEDS: insulin lispro 100 unit/1 mL SUBCUT ×2 (11:23→21:19)
[2023-08-22 11:30] LABS: Glucose Point of Care 166 mg/dL (70-110)
--- NOTE | 2023-08-22 12:23 | P.DS_ITS ---
Discharge Providers Date of Admission: 08/14/23 20:51 Date of Discharge: August 22, 2023 Attending Provider at Admission: Javy Saba MD Attending Provider at Discharge: Latoya Vega MD Primary Care Provider: Elaine Topete Diagnoses at Discharge Discharge Diagnosis (1) Staphylococcus aureus bacteremia: Status: Acute (2) Anemia: Status: Acute (3) Hyponatremia: Status: Acute (4) Diabetes mellitus: Status: Acute (5) Fluid overload: Status: Resolved (6) Chronic atrial fibrillation: Status: Acute (7) Coronary artery disease: Status: Acute (8) On apixaban therapy: Status: Acute (9) Leukocytosis: Status: Acute Reason for Visit Reason for Visit: Low HGB Hospital Course Hospital Course 78-year-old chronic prison resident with history of A-fib, stroke in past on chronic Eliquis was sent for concerns of low hemoglobin and hyponatremia. Eliquis was held and patient required 2 units of blood transfusion after which her hemoglobin has remained stable around 9. Sodium level also improved with fluid restriction. Patient found to have significant leukocytosis without active signs of infection therefore blood cultures were obtained and there were found to be positive for MRSA. No known source. It was decided to send patient with PICC line for 6 weeks of IV antibiotics. Eliquis to stay off for next few weeks. Patient send on Protonix, Carafate. Hemoglobin did remain stable. [facility]. Curry was removed prior to discharge. Patient to go on IV vancomycin with last date 09/25. She is to have weekly labs done. Updated patient's son over the phone at bedside. Discharge Data Studies Completed and Pending Completed Studies During Hospitalization Category Date Time Status CT abdomen pelvis wo con [id number] Routine Cat Scan 08/16/23 09:[address] lumbar spine w con [id number] Routine Cat Scan 08/16/23 09:[address] thoracic spine w con [id number] Routine Cat Scan 08/16/23 09:39 Completed CXRP [XR chest 1V portable [id number]] Routine Exams 08/19/23 13:42 Completed CV. echo complete* [id number] Routine Ultrasound 08/16/23 09:39 Completed Pending at discharge Category Date Time Status Blood Culture Stat Lab 08/19/23 19:10 Results Vancomycin Trough Timed Lab 08/23/23 01:00 Ordered Radiology Impressions Abdomen/Pelvis CT 08/16/23 09:39 IMPRESSION: No acute intra-abdominal process. Focal soft tissue thickening in right gluteal/lateral thigh region. The appearance is nonspecific but could indicate hematoma, focal edema, or soft tissue infection. Lumbar Spine CT 08/16/23 09:39 IMPRESSION: No acute findings. If there is clinical suspicion for disc space or bony infection, MRI with and without contrast is recommended. Thoracic Spine CT 08/16/23 09:39 IMPRESSION: No acute bony abnormality. If there is clinical concern for disc space or vertebral infection, MRI with and without contrast would be the appropriate examination. Chest X-Ray 08/19/23 13:42 IMPRESSION: 1. Right PICC line is noted with the tip at the caval atrial junction. 2. Mild cardiomegaly stable. 3. Nonspecific mild left lung base opacity favors atelectasis or pneumonia. Laboratory Results WBC 10.64 10^3/uL (3.29-11.43) 08/21/23 04:15 RBC 4.01 10^6/uL (3.85-5.65) 08/21/23 04:15 Hgb 8.80 g/dL (11.27-16.99) L 08/21/23 04:15 Hct 31.6 % (36-47) L 08/21/23 04:15 MCV 78.8 fl (85-98) L 08/21/23 04:15 MCH 21.9 pg (27-33) L 08/21/23 04:15 MCHC 27.8 g/dL (30-55) L 08/21/23 04:15 RDW 23.7 % (12.1-15.1) H 08/21/23 04:15 Plt Count 314 10^3/cmm (157-399) 08/21/23 04:15 MPV 10.4 fL (7.4-10.4) 08/21/23 04:15 Neut % (Auto) 64.2 % 08/21/23 04:15 Lymph % (Auto) 20.1 % 08/21/23 04:15 Thayer % (Auto) 10.5 % 08/21/23 04:15 Eos % (Auto) 3.3 % 08/21/23 04:15 Baso % (Auto) 1.1 % 08/21/23 04:15 Reticulocyte % (Auto) 3.1 % (0.5-2.0) H 08/14/23 16:14 Neut # (Auto) 6.82 10^3/uL (1.8-7.7) 08/21/23 04:15 Lymph # (Auto) 2.1 10^3/uL (0.8-4.8) 08/21/23 04:15 Thayer # (Auto) 1.1 10^3/uL (0.2-0.9) H 08/21/23 04:15 Eos # (Auto) 0.4 10^3/uL (0.0-0.8) 08/21/23 04:15 Baso # (Auto) 0.1 10^3/uL (0.0-0.1) 08/21/23 04:15 Nucleated RBC % (auto) 0 % 08/21/23 04:15 Nucleated RBCs # 0.0 /100WBC 08/21/23 04:15 PT 16.40 SECONDS (12.1-14.9) H 08/14/23 16:14 INR 1.28 (0.8-1.2) H 08/14/23 16:14 APTT 32.7 SECONDS (23.9-36.7) 08/14/23 16:14 Sodium 138 mmol/L (136-145) 08/21/23 04:15 Potassium 3.7 mmol/L (3.5-5.1) 08/21/23 04:15 Chloride 101 mmol/L (98-107) 08/21/23 04:15 Carbon Dioxide 31 mmol/L (22-29) H 08/21/23 04:15 Anion Gap 9.7 (5-19) 08/21/23 04:15 BUN 11 mg/dL (8-23) 08/21/23 04:15 Creatinine 0.5 mg/dL (0.5-0.9) 08/21/23 04:15 GFR Calculation Not Reportable 08/21/23 04:15 Glucose 109 mg/dL (65-115) 08/21/23 04:15 POC Glucose 166 mg/dL (70-110) H 08/22/23 11:10 Estimat Average Glucose 169 08/15/23 01:25 Hemoglobin A1c 7.5 % (4.0-6.0) H 08/15/23 01:25 Calculated Osmolality 286 mOsm/kg (285-295) 08/21/23 04:15 Calcium 8.4 mg/dL (8.5-10.5) L 08/21/23 04:15 Phosphorus 3.0 mg/dL (2.5-4.5) 08/15/23 01:25 Magnesium 1.4 mg/dL (1.7-2.3) L 08/21/23 04:15 Iron 14 ug/dL (37-145) L 08/14/23 16:14 TIBC 382 mcg/dl 08/14/23 16:14 % Saturation 3.6 % (20-50) L 08/14/23 16:14 Unsat Iron Binding 368 ug/dL (112-347) H 08/14/23 16:14 Total Bilirubin 0.2 mg/dL (0.15-1.2) 08/20/23 02:32 AST 14 U/L (0-32) 08/20/23 02:32 ALT 9 U/L (0-33) 08/20/23 02:32 Alkaline Phosphatase 159 U/L (35-105) H 08/20/23 02:32 Lactate Dehydrogenase 240 U/L (135-214) H 08/14/23 16:14 NT-Pro-B Natriuret Pep 1577 pg/mL (0-450) H 08/14/23 16:14 Total Protein 6.0 g/dL (6.6-8.7) L 08/20/23 02:32 Albumin 2.8 g/dL (3.5-5.2) L 08/20/23 02:32 Globulin 3.2 g/dL (1.3-4.6) 08/20/23 02:32 Triglycerides 94 mg/dL (0-150) 08/15/23 01:25 Cholesterol 110 mg/dL (0-200) 08/15/23 01:25 LDL Cholesterol, Calc 35 mg/dL (50-129) L 08/15/23 01:25 HDL Cholesterol 56 mg/dL (60-100) L 08/15/23 01:25 LDL/HDL Ratio 0.63 RATIO (0.00-3.22) 08/15/23 01:25 Cholesterol/HDL Ratio 1.96 mg/dL (0.0-4.40) 08/15/23 01:25 Vitamin B12 399 pg/mL (232-1245) 08/14/23 16:14 Folate 6.6 ng/mL (4.8-37.3) 08/15/23 01:25 Procalcitonin 0.08 ng/mL (0-0.5) 08/15/23 19:07 TSH 1.44 uIU/mL (0.27-4.20) 08/14/23 16:14 Urine Color Light yellow (Yellow) 08/15/23 23:25 Urine Appearance Hazy (CLEAR) A 08/15/23 23:25 Urine pH 7 (5-7) 08/15/23 23:25 Ur Specific [place] 1.005 (1.005-1.030) 08/15/23 23:25 Urine Protein Neg (Negative) 08/15/23 23:25 Urine Glucose (UA) Norm (Normal) 08/15/23 23:25 Urine Ketones Negative (Negative) 08/15/23 23:25 Urine Blood Neg (Negative) 08/15/23 23:25 Urine Nitrate Negative (Negative) 08/15/23 23:25 Urine Bilirubin Neg (Negative) 08/15/23 23:25 Urine Urobilinogen Norm mg/dL (Negative) 08/15/23 23:25 Ur Leukocyte Esterase 2+ (Negative) H 08/15/23 23:25 Urine RBC 0-4 /hpf (0-2) H 08/15/23 23:25 Urine WBC 55-80 /hpf (0-5) H 08/15/23 23:25 Ur Squamous Epith Cells 0-4 /hpf (0-5) H 08/15/23 23:25 Amorphous Sediment Not Reportable 08/15/23 23:25 Urine Bacteria 1+ /hpf (NONE) H 08/15/23 23:25 Ur Random Sodium 38 mmol/L 08/15/23 23:25 Ur Random Potassium 15 mmol/L 08/15/23 23:25 Ur Random Chloride 20 mmol/L 08/15/23 23:25 Urine Creatinine 15 mg/dL (28-217) L 08/15/23 23:25 Vancomycin Trough 26.5 ug/mL (10-15) H* 08/20/23 11:46 MRSA (PCR) Detected (NOT DETECTED) A 08/15/23 23:25 Blood Type O Positive 08/14/23 16:14 Rho(D) Type Rh positive 08/14/23 16:14 Antibody Screen Negative 08/14/23 16:14 Crossmatch See Detail 08/14/23 16:14 Vitals Last Vital Signs Temp 98.3 F 08/22/23 11:53 Pulse 91 08/22/23 11:53 Resp 14 08/22/23 11:53 BP 142/82 08/22/23 11:53 Pulse Ox 94 08/22/23 11:53 O2 Del Method Nasal Cannula 08/22/23 11:53 O2 Flow Rate 3 08/22/23 11:53 Discharge Plan Discharge Patient Disposition: Xfer SNF Condition: Stable Prescriptions: New sucralfate 100 mg/mL Suspension 1 g PO AC&BEDTIME 30 Days Qty: 1000 0RF Cardizem CD 180 mg capsule,extended release 24hr 180 mg PO DAILY Qty: 30 0RF Protonix 40 mg tablet,delayed release (DR/EC) 40 mg PO BID 30 Days Qty: 60 0RF Rx Instructions: Twice daily for next 1 month after that once daily Lasix 20 mg tablet 20 mg PO QAM Qty: 30 0RF Continued ropinirole 1 mg Tablet 1 mg PO DAILY docusate sodium [Stool Softener] 100 mg Tablet 100 mg PO BID ondansetron HCl 4 mg Tablet 4 mg PO Q6H PRN (Reason: Nausea) magnesium oxide 400 mg (241.3 mg magnesium) Tablet 400 mg PO BID Qty: 6 0RF Trelegy Ellipta 100-62.5-25 mcg blister with device 1 inh inhalation DAILY Qty: 60 0RF albuterol sulfate 90 mcg/actuation HFA aerosol inhaler 1 inh inhalation Q6H PRN (Reason: shortness of breath or wheezing) Qty: 8.5 0RF acetaminophen 325 mg Tablet 650 mg PO Q4H PRN (Reason: Pain) hydrocodone-acetaminophen 5-325 mg tablet 1 tab PO Q4H PRN (Reason: Pain) alprazolam 0.25 mg tablet See Rx Instructions .ROUTE .COMPLEX Rx Instructions: Take 1 tablet by mouth every 24 hours as needed for anxiety for 3 months. Milk of Magnesia 400 mg/5 mL Suspension 30 ml PO DAILY PRN (Reason: Constipation) Dulcolax (bisacodyl) 10 mg Suppository 10 mg IA DAILY PRN (Reason: Constipation) Fleet Enema 19-7 gram/118 mL Enema 118 ml IA DAILY PRN (Reason: Constipation) rosuvastatin 20 mg tablet 20 mg PO DAILY duloxetine 60 mg capsule,delayed release(DR/EC) 60 mg PO DAILY Artificial Tears (cmc) 1 % Drops 1 drp OPHTHALMIC (EYE) PRN Humalog KwikPen Insulin 100 unit/mL insulin pen 10 unit SUBCUT TID Rx Instructions: Take 10 units by subcutaneous injection 3 times daily plus sliding scale: bs 150-200=0 units, 201-250=2 units, 251-300=4 units, 301-350-6 units, 351- 400=8 units. Lantus Solostar U-100 Insulin 100 unit/mL (3 mL) insulin pen 45 unit SUBCUT BID Held Eliquis 5 mg Tablet 5 mg PO BID Hold Instructions: Resume on 08/30/23. Discontinued diltiazem HCl [Cartia XT] 120 mg capsule,extended release 24hr 120 mg PO DAILY lisinopril 5 mg Tablet 5 mg PO DAILY Qty: 30 0RF Discharge Orders: Discharge Order (Routine); Ordered 08/22/23 Ordered By: Latoya Vega Other Ambulatory Orders: Complete Blood Count w/Auto (Q7D) Timeframe: 20231004 Location: Determined by Patient Ordered By: Latoya Silvia Complete Blood Count w/Auto (Q7D) Timeframe: 20230830 Location: Determined by Patient Ordered By: Latoya Silvia Comprehensive Metabolic Panel (Q7D) Timeframe: 20230830 Facility: [facility] - Location: Lab - Main Lab Ordered By: Latoya Silvia Comprehensive Metabolic Panel (Q7D) Timeframe: 20230906 Facility: [facility] - Location: Lab - Main Lab Ordered By: Latoya Silvia Comprehensive Metabolic Panel (Q7D) Timeframe: 20230913 Facility: [facility] - Location: Lab - Main Lab Ordered By: Latoya Silvia Comprehensive Metabolic Panel (Q7D) Timeframe: 20230920 Facility: [facility] - Location: Lab - Main Lab Ordered By: Latoya Silvia Comprehensive Metabolic Panel (Q7D) Timeframe: 20230927 Facility: [facility] - Location: Lab - Main Lab Ordered By: Latoya Silvia Comprehensive Metabolic Panel (Q7D) Timeframe: 20231004 Facility: [facility] - Location: Lab - Main Lab Ordered By: Latoya Vega Referrals: [facility] [Provider Group] - 09/18/23 10:00 am [facility] [Outside] Elaine Topete PA [Primary Care Provider] - Discharge Diet: Cardiac Discharge Activity: Resume usual activity and Increase activity as tolerated Patient Instructions: Diltiazem (By mouth), Furosemide (By mouth), Sucralfate (By mouth), Pantoprazole (By mouth), Opioid Safety Activity Restrictions/Additional Instructions: Restrict fluid intake to less than 1500. Dose of Cardizem has been increased to 180 mg daily. Take Lasix 20 mg daily. Do not take Eliquis for next 2 weeks. Take Protonix twice daily for next 1 month followed by once daily. Take Carafate 3 times a day for next 1 month. After initiating Eliquis in 2 weeks you should check your hemoglobin in a week. If hemoglobin is trending down you should follow-up with surgery for endoscopy and colonoscopy. Discharge Attestations Time Spent in Discharge Care*: less than 30 min Status at Discharge: Cognitive status at discharge: cognitively intact , Behavioral status at discharge: cooperative , Quality Metrics Clinical Quality Measures [ No reported AMI, CVA or VTE this stay] Coding Level of Care Code Acute Code for Chg Fwd Diagnoses Staphylococcus aureus bacteremia R78.81; B95.61 Anemia D64.9 Hyponatremia E87.1 Type 2 diabetes mellitus with hyperglycemia, with long-term current use of insulin E11.9 Fluid overload E87.70 Chronic atrial fibrillation I48.20 Coronary artery disease I25.10 On apixaban therapy Z79.01 Leukocytosis D72.829
[2023-08-22] MEDS: HYDROcodone-acetaminophen 5-325 mg Tablet 1 TAB PO (12:46)
[2023-08-22 13:02] LABS: SARS Covid-2 Antigen negative (Negative)
[2023-08-22 16:50] LABS: Glucose Point of Care 114 mg/dL (70-110)
[2023-08-22 21:14] LABS: Glucose Point of Care 187 mg/dL (70-110)
--- NOTE | 2023-08-22 22:12 | PC.NURSE ---
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
== END 2023-08-22 22:15 | disposition skilled nursing facility (03) | DRG 641 ==
LOC: ER 17:48 → ER IP 20:57 → MEDSURG 08-16 06:29
PROVIDERS: Internal Medicine; Admitting Provider Student in an Organized Health Care Education/Training Program; Emergency Provider Family Medicine; PCP Physician Assistant; Visit Provider Internal Medicine
DX: E87.1 Hypo-osmolality and hyponatremia (principal); R78.81 Bacteremia; Z68.41 Body mass index [BMI] 40.0-44.9, adult; I48.20 Chronic atrial fibrillation, unspecified; D64.9 Anemia, unspecified; E87.5 Hyperkalemia; Z88.0 Allergy status to penicillin; F17.210 Nicotine dependence, cigarettes, uncomplicated; B95.62 Methicillin resistant Staphylococcus aureus infection as the cause of diseases classified elsewhere; E66.01 Morbid (severe) obesity due to excess calories; I25.10 Atherosclerotic heart disease of native coronary artery without angina pectoris; Z86.14 Personal history of Methicillin resistant Staphylococcus aureus infection; E78.5 Hyperlipidemia, unspecified; K21.9 Gastro-esophageal reflux disease without esophagitis; G25.81 Restless legs syndrome; Z86.73 Personal history of transient ischemic attack (TIA), and cerebral infarction without residual deficits; Z79.01 Long term (current) use of anticoagulants; J44.9 Chronic obstructive pulmonary disease, unspecified
CPT/HCPCS: 36415; 36416; 36573; 51702; 71045; 72129; 72132; 74176; 80048; 80053; 80061; 80202; 81001; 82274; 82436; 82570; 82607; 82746; 82962; 83036; 83540; 83550; 83615; 83735; 83880; 84100; 84133; 84145; 84300; 84443; 85025; 85045; 85610; 85730; 86403; 86850; 86900; 86920; 87040; 87077; 87086; 87150; 87186; 87205; 87426; 87641; 93306; 94664; 96372; 96374; 96375; 97165; 99285; C9113; J1756; J1815; J1940; J2185; J3370; J3475; J7050; P9016; Q9967

== ENCOUNTER 2023-09-05 23:16 | Emergency (ER) | payer MEDICARE, MEDICAID, SELFPAY ==
[2023-09-05 23:17] VITALS: BP 154/86; PULSE 102; RESP 18; TEMP 36.4; O2SAT 95; BMI 41.7
--- NOTE | 2023-09-05 23:26 | ED_ITS ---
HPI - General Adult 2 General: Chief complaint: Recheck/Abnormal Lab/Rx Stated complaint: high potassium Time Seen by Provider: 09/05/23 23:18 History of Present Illness: 78-year-old female resident of the [facility]. Comes in today for evaluation of elevated potassium. Labs done earlier today came back with elevated potassium of 6.9. Patient has a history of atrial fibrillation, nicotine dependence, morbid obesity, hypomagnesia, hypokalemia, constipation, GERD, diabetes mellitus, hypertension, ASHD, and multiple other diagnoses. Patient is on vancomycin at this time for MRSA infection. Patient has a intellectual disability and poor historian. 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 difficile colitis Gastroesophageal reflux disease Hyperlipidemia On apixaban therapy History of ESBL E. coli infection History of MRSA infection History of small bowel obstruction Medically managed to date Diabetes mellitus Coronary artery disease HTN (hypertension), malignant COPD (chronic obstructive pulmonary disease) Morbid obesity Surgical History History of colonoscopy (~2013) History of bladder suspension procedure History of orthopedic surgery Wrist and left leg History of cholecystectomy History of tubal ligation History of appendectomy Family History Other CAD (coronary artery disease) Cancer Social History Smoking and tobacco/nicotine status: current every day tobacco/nicotine user cigarettes Packs smoked per day: 0.5 Alcohol intake: never Substance/Drug Use: unknown Caregiver/support person: Yes (Son as well as some home health) Housing: Care Home Physical Exam 2 Const: COMMON NORMALS: alert HENMT: COMMON NORMALS: normocephalic HEAD & SCALP: normocephalic Neck/C-Spine: COMMON NORMALS: full ROM Resp: COMMON NORMALS: normal respiratory effort Cardio: COMMON NORMALS: regular rate RATE: regular rate GI: COMMON NORMALS: non-tender Back/Pelvis: COMMON NORMALS: thoracic and lumbar spine normal to inspection Extremity: OTHER: Knee immobilizer to the right lower leg. Neuro: SENSORIUM/ORIENTATION: Yes alert Skin: COMMON NORMALS: turgor normal GENERAL SKIN EXAM: turgor normal Course 2 Vital Signs: Vital signs: Vital Signs Temperature 97.6 F 09/05/23 23:17 Pulse Rate 99 09/06/23 00:00 Respiratory Rate 18 09/06/23 00:00 Blood Pressure 154/86 09/06/23 00:00 Pulse Oximetry 93 09/06/23 00:00 Oxygen Delivery Me thod Nasal Cannula 09/06/23 00:00 Oxygen Flow Rate 2.5 09/06/23 00:00 MDM - General Adult Medical Decision Making Patient was brought over from the [facility] for concerns of a abnormal lab value of a potassium at 6.9. Patient appears nontoxic. Patient appears in no acute distress. Respirations are even lungs are clear to auscultation. Differential diagnosis includes not limited to hemolyzed blood draw, hyperkalemia, dehydration. CBC continues to have some leukocytosis. CMP noted a potassium of 3.9 and a glucose of 391. Patient was given 8 units of subcu insulin due to elevated glucose. Patient was discharged back to the [facility] with recommendations of continuation of care as potassium was within normal limits. Lab Data 09/05/23 23:36 09/06/23 00:10 Laboratory Results WBC 15.17 10^3/uL (3.29-11.43) H 09/05/23 23:36 RBC 4.20 10^6/uL (3.85-5.65) 09/05/23 23:36 Hgb 10.10 g/dL (11.27-16.99) L 09/05/23 23:36 Hct 36.7 % (36-47) 09/05/23 23:36 MCV 87.4 fl (85-98) 09/05/23 23:36 MCH 24.0 pg (27-33) L 09/05/23 23:36 MCHC 27.5 g/dL (30-55) L 09/05/23 23:36 RDW 28.6 % (12.1-15.1) H 09/05/23 23:36 Plt Count 290 10^3/cmm (157-399) 09/05/23 23:36 MPV 10.4 fL (7.4-10.4) 09/05/23 23:36 Neut % (Auto) 69.6 % 09/05/23 23:36 Lymph % (Auto) 16.5 % 09/05/23 23:36 [place] % (Auto) 9.1 % 09/05/23 23:36 Eos % (Auto) 2.3 % 09/05/23 23:36 Baso % (Auto) 0.1 % 09/05/23 23:36 Neut # (Auto) 10.57 10^3/uL (1.8-7.7) H 09/05/23 23:36 Lymph # (Auto) 2.5 10^3/uL (0.8-4.8) 09/05/23 23:36 [place] # (Auto) 1.4 10^3/uL (0.2-0.9) H 09/05/23 23:36 Eos # (Auto) 0.4 10^3/uL (0.0-0.8) 09/05/23 23:36 Baso # (Auto) 0.0 10^3/uL (0.0-0.1) 09/05/23 23:36 Nucleated RBC % (auto) 0.2 % 09/05/23 23:36 Nucleated RBCs # 0.0 /100WBC 09/05/23 23:36 Sodium 134 mmol/L (136-145) L 09/06/23 00:10 Potassium 4.9 mmol/L (3.5-5.1) 09/06/23 00:10 Chloride 95 mmol/L (98-107) L 09/06/23 00:10 Carbon Dioxide 30 mmol/L (22-29) H 09/06/23 00:10 Anion Gap 13.9 (5-19) 09/06/23 00:10 BUN 18 mg/dL (8-23) 09/06/23 00:10 Creatinine 0.6 mg/dL (0.5-0.9) 09/06/23 00:10 GFR Calculation Not Reportable 09/06/23 00:10 Glucose 391 mg/dL (65-115) H 09/06/23 00:10 Calculated Osmolality 296 mOsm/kg (285-295) H 09/06/23 00:10 Calcium 8.3 mg/dL (8.5-10.5) L 09/06/23 00:10 Magnesium 1.8 mg/dL (1.7-2.3) 09/06/23 00:10 Total Bilirubin 0.3 mg/dL (0.15-1.2) 09/06/23 00:10 AST 15 U/L (0-32) 09/06/23 00:10 ALT 10 U/L (0-33) 09/06/23 00:10 Alkaline Phosphatase 211 U/L (35-105) H 09/06/23 00:10 Total Protein 6.8 g/dL (6.6-8.7) 09/06/23 00:10 Albumin 2.9 g/dL (3.5-5.2) L 09/06/23 00:10 Globulin 3.9 g/dL (1.3-4.6) 09/06/23 00:10 No radiology studies performed this visit Discharge Plan Discharge Patient Disposition: Home Clinical Impression: Abnormal laboratory test Condition: Stable Prescriptions: No Action ropinirole 1 mg Tablet 1 mg PO DAILY Eliquis 5 mg Tablet 5 mg PO BID Hold Instructions: Resume on 08/30/23. docusate sodium [Stool Softener] 100 mg Tablet 100 mg PO BID ondansetron HCl 4 mg Tablet 4 mg PO Q6H PRN (Reason: Nausea) magnesium oxide 400 mg (241.3 mg magnesium) Tablet 400 mg PO BID Qty: 6 0RF Trelegy Ellipta 100-62.5-25 mcg blister with device 1 inh inhalation DAILY Qty: 60 0RF albuterol sulfate 90 mcg/actuation HFA aerosol inhaler 1 inh inhalation Q6H PRN (Reason: shortness of breath or wheezing) Qty: 8.5 0RF acetaminophen 325 mg Tablet 650 mg PO Q4H PRN (Reason: Pain) hydrocodone-acetaminophen 5-325 mg tablet 1 tab PO Q4H PRN (Reason: Pain) alprazolam 0.25 mg tablet See Rx Instructions .ROUTE .COMPLEX Rx Instructions: Take 1 tablet by mouth every 24 hours as needed for anxiety for 3 months. Milk of Magnesia 400 mg/5 mL Suspension 30 ml PO DAILY PRN (Reason: Constipation) Dulcolax (bisacodyl) 10 mg Suppository [address] DAILY PRN (Reason: Constipation) Fleet Enema 19-7 gram/118 mL Enema [address] DAILY PRN (Reason: Constipation) rosuvastatin 20 mg tablet 20 mg PO DAILY duloxetine 60 mg capsule,delayed release(DR/EC) 60 mg PO DAILY Artificial Tears (cmc) 1 % Drops 1 drp OPHTHALMIC (EYE) PRN Humalog KwikPen Insulin 100 unit/mL insulin pen 10 unit SUBCUT TID Rx Instructions: Take 10 units by subcutaneous injection 3 times daily plus sliding scale: bs 150-200=0 units, 201-250=2 units, 251-300=4 units, 301-350-6 units, 351- 400=8 units. Lantus Solostar U-100 Insulin 100 unit/mL (3 mL) insulin pen 45 unit SUBCUT BID sucralfate 100 mg/mL Suspension 1 g PO AC&BEDTIME 30 Days Qty: 1000 0RF Cardizem CD 180 mg capsule,extended release 24hr 180 mg PO DAILY Qty: 30 0RF Protonix 40 mg tablet,delayed release (DR/EC) 40 mg PO BID 30 Days Qty: 60 0RF Rx Instructions: Twice daily for next 1 month after that once daily Lasix 20 mg tablet 20 mg PO QAM Qty: 30 0RF Discharge Orders: Discharge ED (Routine); Ordered 09/06/23 Ordered By: John Lagos Referrals: Elaine Topete PA [Primary Care Provider] - Activity Restrictions/Additional Instructions: Continue with routine care Coding Level of Care Code ED Videotape Sales Representative for Chg Liu
--- NOTE | 2023-09-05 23:36 | PC.NURSE ---
lctab. a-fib on monitor. heart sounds s1s2. no leg swelling. abd soft/nontender. bowel sounds present. denies pain.
[2023-09-05 23:43] LABS: Basophils % 0.1 %; Eosinophils # 0.4 10^3/uL (0.0-0.8); Eosinophils % 2.3 %; Hematocrit 36.7 % (36-47); Lymphocytes # 2.5 10^3/uL (0.8-4.8); Lymphocytes % 16.5 %; Mean Corpuscular HGB Conc 27.5 g/dL (30-55); Mean Corpuscular Volume 87.4 fl (85-98); Mean Platelet Volume 10.4 fL (7.4-10.4); Monocytes # 1.4 10^3/uL (0.2-0.9); Monocytes % 9.1 %; Neutrophils # 10.57 10^3/uL (1.8-7.7); Neutrophils % 69.6 %; Nucleated Red Blood Cells % 0.2 %; Platelet Count 290 10^3/cmm (157-399); Red Cell Distribution Width 28.6 % (12.1-15.1); White Blood Count 15.17 10^3/uL (3.29-11.43)
--- NOTE | 2023-09-05 23:59 | PC.NURSE ---
in and out cath ua attempted by myself and yari camarena rn. sample not enough per lab. jaqueline sage made aware.
[2023-09-06] VITALS: BP 154/86; PULSE 99; RESP 18; O2SAT 93
[2023-09-06 00:03] LABS: Slide Review Slide Review Perform
[2023-09-06 00:41] LABS: Alanine Aminotransferase 10 U/L (0-33); Albumin Level 2.9 g/dL (3.5-5.2); Alkaline Phosphatase 211 U/L (35-105); Blood Urea Nitrogen 18 mg/dL (8-23); Calcium 8.3 mg/dL (8.5-10.5); Carbon Dioxide 30 mmol/L (22-29); Chloride 95 mmol/L (98-107); Creatinine Clr Calc Pharmacy 68.0967; Globulin 3.9 g/dL (1.3-4.6); Glucose 391 mg/dL (65-115); Magnesium 1.8 mg/dL (1.7-2.3); Osmolality Calculated 296 mOsm/kg (285-295); Sodium 134 mmol/L (136-145); Total Bilirubin 0.3 mg/dL (0.15-1.2); Total Protein 6.8 g/dL (6.6-8.7)
[2023-09-06 00:42] LABS: Anion Gap 13.9 (5-19); Aspartate Amino Transferase 15 U/L (0-32); Potassium 4.9 mmol/L (3.5-5.1)
[2023-09-06 01:03] LABS: Glucose Point of Care 361 mg/dL (70-110)
[2023-09-06] MEDS: insulin regular-human 100 units/1 mL 8 UNIT SUBCUT (01:06)
[2023-09-06 01:40] VITALS: BP 150/97; PULSE 99; RESP 17; O2SAT 97
[2023-09-06 02:04] LABS: Glucose Point of Care 329 mg/dL (70-110)
== END 2023-09-06 02:10 | disposition home or self-care (01) ==
PROVIDERS: Emergency Provider Nurse Practitioner Family; PCP Physician Assistant
DX: Z00.00 Encounter for general adult medical examination without abnormal findings (principal); Z79.01 Long term (current) use of anticoagulants; Z79.4 Long term (current) use of insulin; F17.210 Nicotine dependence, cigarettes, uncomplicated; Z86.73 Personal history of transient ischemic attack (TIA), and cerebral infarction without residual deficits; E78.5 Hyperlipidemia, unspecified; E11.9 Type 2 diabetes mellitus without complications; I25.10 Atherosclerotic heart disease of native coronary artery without angina pectoris; I10 Essential (primary) hypertension; J44.9 Chronic obstructive pulmonary disease, unspecified
CPT/HCPCS: 36416; 80053; 82962; 83735; 85025; 96372; 99284; J1815

== ENCOUNTER 2023-09-26 13:41 | Outpatient (CLI) | payer MEDICARE, MEDICAID, SELFPAY ==
--- NOTE | 2023-09-26 13:46 | XR_ITS ---
WS: [id number] SCREENING DEXA SCAN [employer] CLINICAL INFORMATION: POST MENOPAUSAL COMPARISON: None. FINDINGS: The L1-L4 bone mineral density measures 1.206 g/cm2. This corresponds to a T score score of 0.2 and Z score of 0.9. Right femoral neck bone mineral density measures 0.478. This corresponds to a T score of -4.2 and Z s core of -3.0. IMPRESSION: Normal bone mineralization lumbar spine. Osteoporosis RIGHT femoral neck. Patient's FRAX calculated 10 year probability for major osteoporotic fracture is 45.0% and osteoporot ic hip fracture is 22.9%.
== END 2023-09-26 13:42 | disposition home or self-care (01) ==
LOC: RAD 13:42
PROVIDERS: PCP Physician Assistant; Visit Provider Physician Assistant
DX: M81.0 Age-related osteoporosis without current pathological fracture (principal)
CPT/HCPCS: 77080

== ENCOUNTER → 2023-10-16 11:14 | Outpatient (BNVA) | payer MEDICARE, MEDICAID, SELFPAY | PROVIDERS: PCP Physician Assistant; Visit Provider Student in an Organized Health Care Education/Training Program | DX: R78.81 Bacteremia (principal); B95.61 Methicillin susceptible Staphylococcus aureus infection as the cause of diseases classified elsewhere | CPT/HCPCS: 99203 ==

== ENCOUNTER 2024-01-15 09:19 | Inpatient (IN) | payer MEDICARE, MEDICAID, SELFPAY ==
[2024-01-15] VITALS (10 sets, daily range): BP systolic 112–155; BP diastolic 59–95; PULSE 94–104; RESP 13–20; TEMP 36.7–36.8; O2SAT 90–100; BMI 46.3; BMI 46.7
--- NOTE | 2024-01-15 09:25 | XRR_ITS ---
PROCEDURE INFORMATION: Exam: XR Chest Exam date and time: 01/15/2024 9:34 AM Age: 78 years old Clinical indication: Cough and dyspnea; Patient HX: Low o2; Additional info: Dyspnea/cough TECHNIQUE: Imaging protocol: Radiologic exam of the chest. Views: 1 view. COMPARISON: CR XR chest 1V portable [id number] 08/19/2023 2:27 PM FINDINGS: Lungs: Unremarkable. No consolidation. Pleural spaces: Unremarkable. No pleural effusion. No pneumothorax. Heart/Mediastinum: Unremarkable. No cardiomegaly. Bones/joints: Unremarkable. XR/XR chest 1V portable [id number] IMPRESSION: No acute findings.
--- NOTE | 2024-01-15 09:34 | W.ED.SOB ---
HPI - SOB/Dyspnea General: Chief Complaint: Shortness of Breath/Dyspnea Stated Complaint: Resp Distress Time Seen by Provider: 01/15/24 09:23 Source: patient Mode of arrival: EMS History of Present Illness: HPI Narrative: 78-year-old female presents emergency room complaining of shortness of breath normally she wears 4 L she has a history of COPD diabetes and congestive heart failure. She has noticed increasing orthopnea and just generally not feeling well nonproductive cough. Chronic urinary tract symptoms as well. No chest pain or tightness. 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 difficile colitis Gastroesophageal reflux disease Hyperlipidemia On apixaban therapy History of ESBL E. coli infection History of MRSA infection History of small bowel obstruction Medically managed to date Diabetes mellitus Coronary artery disease HTN (hypertension), malignant COPD (chronic obstructive pulmonary disease) Morbid obesity Surgical History History of colonoscopy (~2013) History of bladder suspension procedure History of orthopedic surgery Wrist and left leg History of cholecystectomy History of tubal ligation History of appendectomy Family History Other CAD (coronary artery disease) Cancer Social History (Updated 01/15/24 @ 14:38 by Kerry Cruz MD) Smoking and tobacco/nicotine status: former use of tobacco/nicotine Quit status (tobacco/nicotine): has quit using Alcohol intake: never Substance/Drug Use: never Caregiver/support person: Yes (Son ) Housing: Long Term Course Vital Signs: Vital signs: Vital Signs Temperature 98.1 F 01/15/24 09:20 Pulse Rate 95 01/15/24 14:00 Respiratory Rate 13 01/15/24 13:00 Blood Pressure 136/95 01/15/24 14:00 Pulse Oximetry 94 01/15/24 14:00 Oxygen Delivery Me thod Nasal Cannula 01/15/24 12:16 Oxygen Flow Rate 4 01/15/24 09:20 MDM - SOB/Dyspnea Medical Decision Making Acute exacerbation CHF. Cystitis possible underlying pneumonia. Patient has a leukocytosis slightly elevated lactic acid blood pressure has been fine. Cultures done started on ceftriaxone and Zithromax. Discussed with hospitalist orders written Medical Records I reviewed the patient's medical records. Lab Data I reviewed the patient's lab results. 01/15/24 09:14 01/15/24 10:14 Labs/Radiology: Radiology Impressions Chest X-Ray 01/15/24 09:25 IMPRESSION: No acute findings. Laboratory Results WBC 16.34 10^3/uL (3.29-11.43) H 01/15/24 09:14 RBC 3.87 10^6/uL (3.85-5.65) 01/15/24 09:14 Hgb 10.90 g/dL (11.27-16.99) L 01/15/24 09:14 Hct 37.4 % (36-47) 01/15/24 09:14 MCV 96.6 fl (85-98) 01/15/24 09:14 MCH 28.2 pg (27-33) 01/15/24 09:14 MCHC 29.1 g/dL (30-55) L 01/15/24 09:14 RDW 15.9 % (12.1-15.1) H 01/15/24 09:14 Plt Count 305 10^3/cmm (157-399) 01/15/24 09:14 MPV 11.6 fL (7.4-10.4) H 01/15/24 09:14 Neut % (Auto) 67.9 % 01/15/24 09:14 Lymph % (Auto) 20.8 % 01/15/24 09:14 [place] % (Auto) 7.2 % 01/15/24 09:14 Eos % (Auto) 1.5 % 01/15/24 09:14 Baso % (Auto) 0.9 % 01/15/24 09:14 Neut # (Auto) 11.11 10^3/uL (1.8-7.7) H 01/15/24 09:14 Lymph # (Auto) 3.4 10^3/uL (0.8-4.8) 01/15/24 09:14 [place] # (Auto) 1.2 10^3/uL (0.2-0.9) H 01/15/24 09:14 Eos # (Auto) 0.2 10^3/uL (0.0-0.8) 01/15/24 09:14 Baso # (Auto) 0.1 10^3/uL (0.0-0.1) 01/15/24 09:14 Nucleated RBC % (auto) 0.4 % 01/15/24 09:14 Nucleated RBCs # 0.1 /100WBC 01/15/24 09:14 Specimen Type Arterial 01/15/24 09:29 Sample Site Radial, right 01/15/24 09:29 ABG pH 7.44 (7.35-7.45) 01/15/24 09:29 ABG pCO2 51.2 mmHg (35-45) H 01/15/24 09:29 ABG pO2 57.7 mmHg (80.0-100.0) L 01/15/24 09:29 ABG HCO3 34.8 mmol/L (22-26) H 01/15/24 09:29 ABG O2 Saturation 89.2 01/15/24 09:29 ABG Base Excess 9.4 mmol/L (-2.0-2.0) H 01/15/24 09:29 [place] Test Pos 01/15/24 09:29 A-a O2 Gradient 3.7 mmHg (5-10) L 01/15/24 09:29 Hematocrit 31.1 % (37-47) L 01/15/24 09:29 Hgb O2 Saturation 87.6 % (95-100) L 01/15/24 09:29 Carboxyhemoglobin 1.8 %THgb (0.4-20.1) 01/15/24 09:29 Methemoglobin 0.1 % (0.4-1.5) L 01/15/24 09:29 Total Hemoglobin 10.1 g/dL (12-16) L 01/15/24 09:29 Sodium 137.0 mmol/L (131-143) 01/15/24 09:29 Potassium 4.2 mmol/L (3.5-5.0) 01/15/24 09:29 Glucose 177.0 mg/dL (70-115) H 01/15/24 09:29 Ionized Calcium 1.2 mmol/L (1.1-1.4) 01/15/24 09:29 O2 Delivery Device Nc 01/15/24 09:29 O2 Liters/Min 4.0 % 01/15/24 09:29 Cigarette Making Machine Catcher ID [place] 01/15/24 09:29 Sodium 137 mmol/L (136-145) 01/15/24 10:14 Potassium 4.3 mmol/L (3.5-5.1) 01/15/24 10:14 Chloride 94 mmol/L (98-107) L 01/15/24 10:14 Carbon Dioxide 31 mmol/L (22-29) H 01/15/24 10:14 Anion Gap 16.3 (5-19) 01/15/24 10:14 BUN 21 mg/dL (8-23) 01/15/24 10:14 Creatinine 0.8 mg/dL (0.5-0.9) 01/15/24 10:14 GFR Calculation Not Reportable 01/15/24 10:14 Glucose 194 mg/dL (65-115) H 01/15/24 10:14 Calculated Osmolality 292 mOsm/kg (285-295) 01/15/24 10:14 Lactic Acid (Sepsis) 1.9 mmol/L (0.5-2.2) 01/15/24 13:21 Lactate 2.5 mmol/L (0.5-2.2) H 01/15/24 10:14 Calcium 9.2 mg/dL (8.5-10.5) 01/15/24 10:14 Total Bilirubin 0.2 mg/dL (0.15-1.2) 01/15/24 10:14 AST 23 U/L (0-32) 01/15/24 10:14 ALT 20 U/L (0-33) 01/15/24 10:14 Alkaline Phosphatase 119 U/L (35-105) H 01/15/24 10:14 Troponin T Baseline 39 ng/L (0-10) H 01/15/24 10:14 Troponin T 120 Minute 40.66 ng/L (0-10) H 01/15/24 12:39 Delta Troponin T 1.66 ABS# (0-10) 01/15/24 12:39 NT-Pro-B Natriuret Pep 1107 pg/mL (0-450) H 01/15/24 10:14 Total Protein 6.8 g/dL (6.6-8.7) 01/15/24 10:14 Albumin 3.3 g/dL (3.5-5.2) L 01/15/24 10:14 Globulin 3.5 g/dL (1.3-4.6) 01/15/24 10:14 Urine Color Yellow (Yellow) 01/15/24 11:03 Urine Appearance Slightly cloudy (CLEAR) 01/15/24 11:03 Urine pH 8 (5-7) H 01/15/24 11:03 Ur Specific [place] 1.010 (1.005-1.030) 01/15/24 11:03 Urine Protein Trace (Negative) 01/15/24 11:03 Urine Glucose (UA) Norm (Normal) 01/15/24 11:03 Urine Ketones 1+ (Negative) H 01/15/24 11:03 Urine Blood 2+ (Negative) H 01/15/24 11:03 Urine Nitrate Negative (Negative) 01/15/24 11:03 Urine Bilirubin Neg (Negative) 01/15/24 11:03 Urine Urobilinogen Norm mg/dL (Negative) 01/15/24 11:03 Ur Leukocyte Esterase 2+ (Negative) H 01/15/24 11:03 Urine RBC None /hpf (0-2) 01/15/24 11:03 Urine WBC 15-25 /hpf (0-5) H 01/15/24 11:03 Ur Squamous Epith Cells 0-4 /hpf (0-5) H 01/15/24 11:03 Amorphous Sediment Not Reportable 01/15/24 11:03 Urine Bacteria 3+ /hpf (NONE) H 01/15/24 11:03 Urine Mucus None /hpf 01/15/24 11:03 All radiology interpretation(s) finalized by discharge Discharge Plan Discharge Patient Disposition: Admitted As Inpatient Clinical Impression: CHF (congestive heart failure), On apixaban therapy, Chronic atrial fibrillation, ESBL E. coli carrier, Coronary artery disease, Diabetes mellitus, Cystitis Condition: Stable Coding Level of Care Code ED Reed Cleaner for Gema Hatfield
[2024-01-15 09:37] LABS: Basophils # 0.1 10^3/uL (0.0-0.1); Basophils % 0.9 %; Eosinophils # 0.2 10^3/uL (0.0-0.8); Eosinophils % 1.5 %; Hematocrit 37.4 % (36-47); Lymphocytes # 3.4 10^3/uL (0.8-4.8); Lymphocytes % 20.8 %; Mean Corpuscular HGB Conc 29.1 g/dL (30-55); Mean Corpuscular Hemoglobin 28.2 pg (27-33); Mean Corpuscular Volume 96.6 fl (85-98); Mean Platelet Volume 11.6 fL (7.4-10.4); Monocytes # 1.2 10^3/uL (0.2-0.9); Monocytes % 7.2 %; Neutrophils # 11.11 10^3/uL (1.8-7.7); Neutrophils % 67.9 %; Nucleated Red Blood Cells # 0.1 /100WBC; Nucleated Red Blood Cells % 0.4 %; Platelet Count 305 10^3/cmm (157-399); Red Blood Count 3.87 10^6/uL (3.85-5.65); Red Cell Distribution Width 15.9 % (12.1-15.1); White Blood Count 16.34 10^3/uL (3.29-11.43)
[2024-01-15 09:40] LABS: ABG PCO2 51.2 mmHg (35-45); ABG PH Result 7.44 (7.35-7.45); Alveolar-Arterial Oxygen Gradi 3.7 mmHg (5-10); Arterial Blood Gas Hematocrit 31.1 % (37-47); Base Excess ABG 9.4 mmol/L (-2.0-2.0); Blood Gas Allen Test Pos; Blood Gas Operator Identificat WALCI; Blood Gas Sample Site Radial, right; Blood Gas Sample Type Arterial; Carboxyhemoglobin 1.8 %THgb (0.4-20.1); HCO3 ABG 34.8 mmol/L (22-26); HGB O2 Sat 87.6 % (95-100); Ionized Calcium Level - ABG 1.2 mmol/L (1.1-1.4); Methemoglobin 0.1 % (0.4-1.5); Oxygen Device NC; Oxygen Saturation ABG 89.2; PO2 ABG 57.7 mmHg (80.0-100.0); Potassium Level - ABG 4.2 mmol/L (3.5-5.0); Total Hemoglobin 10.1 g/dL (12-16)
[2024-01-15 10:42] LABS: Lactate (Lactic Acid level) 2.5 mmol/L (0.5-2.2)
[2024-01-15 10:44] LABS: Troponin(5th) Baseline 39 ng/L (0-10)
[2024-01-15 10:51] LABS: Alanine Aminotransferase 20 U/L (0-33); Albumin Level 3.3 g/dL (3.5-5.2); Alkaline Phosphatase 119 U/L (35-105); Anion Gap 16.3 (5-19); Aspartate Amino Transferase 23 U/L (0-32); Blood Urea Nitrogen 21 mg/dL (8-23); Calcium 9.2 mg/dL (8.5-10.5); Carbon Dioxide 31 mmol/L (22-29); Chloride 94 mmol/L (98-107); Creatinine Clr Calc Pharmacy 72.4342; Globulin 3.5 g/dL (1.3-4.6); Glucose 194 mg/dL (65-115); NT Pro B Type Natriuretic Pept 1107 pg/mL (0-450); Osmolality Calculated 292 mOsm/kg (285-295); Potassium 4.3 mmol/L (3.5-5.1); Sodium 137 mmol/L (136-145); Total Bilirubin 0.2 mg/dL (0.15-1.2); Total Protein 6.8 g/dL (6.6-8.7)
--- NOTE | 2024-01-15 11:09 | PC.PHAR ---
PT IS FROM [facility] [place]
[2024-01-15] MEDS: cefTRIAXone 1,000 MG in sodium chloride 0.9% (plus) 50 ML 100 MG IV (11:20)
--- NOTE | 2024-01-15 11:25 | ECG_ITS ---
[facility] Test Date: 2024-01-15 Pat Name: Purvi Sparks Department: Room: Gender: Female Fitness/Wellness Director: : 1945 Requested By: Alex Trinidad Order Number: [id number] Nia MD: Leonel Rodriguez M.D. Measurements Intervals [place] Rate: 99 P: -61 CA: 196 QRS: -29 QRSD: 72 T: 74 QT: 332 QTc: 426 Interpretive Statements SINUS RHYTHM LOW QRS VOLTAGE IN PRECORDIAL LEADS [QRS DEFLECTION < 1.0 mV IN CHEST LEADS] POSSIBLE ANTERIOR MYOCARDIAL INFARCTION , PROBABLY OLD [30 ms Q WAVE IN V3/V4, OR R < 0.2 mV IN V4] Compared to ECG 01/15/2024 09:30:53 Sinus tachycardia no longer present Myocardial infarct finding still present Electronically Signed On 01-15-2024 23:45:43 CDT by Leonel Rodriguez M.D. [email or web address]
[2024-01-15 11:28] LABS: Add Urine Microscopic? YES; Bilirubin Urine Neg (Negative); Blood Urine 2+ (Negative); Glucose Urine UA Norm (Normal); Ketones Urine 1+ (Negative); Leukocyte Esterase Urine 2+ (Negative); Nitrate Urine Negative (Negative); Protein Urine Trace (Negative); Urine Appearance Slightly Cloudy (CLEAR); Urine Color Yellow (Yellow); Urobilinogen Urine Norm (Negative); pH Urine 8 (5-7)
[2024-01-15 11:42] LABS: Bacteria Urine 3+ /hpf; Squamous Epithelial Cell Urine 0-4 /hpf (0-5)
[2024-01-15 11:43] LABS: Add Urine Culture? Yes; WBC Urine 15-25 /hpf (0-5)
[2024-01-15] MEDS: azithromycin 500 MG in sodium chloride 0.9% 250 ML 250 MG IV (12:06)
[2024-01-15 12:08] LABS: Reflex Lactate Order REFLEX LACTIC ORDERD
--- NOTE | 2024-01-15 12:54 | P.HP_ITS ---
Providers/Chief Complaint 2 Admitting Physician: Kerry Cruz MD Primary Care Provider: Elaine Topete Chief Complaint: Resp Distress History of Present Illness Purvi Sparks is a 78 year old female who presented to the emergency room with chief complaint of difficulty breathing. She resides at [facility]. Per EMS oxygen saturations were 74% on 7 L by nasal cannula when they arrived. She was given a DuoNeb and route and on arrival here her oxygen saturations were in the low 90s. ABG showed 7.44/51/57 on her usual 4 L by nasal cannula short time later. She has known COPD related to former tobacco use. BMI is 46. Additionally she has a history of heart failure with preserved ejection fraction. No recent changes in medications that she or her son are aware of. She does take diuretics. She indicates that it just became more difficult to get in a good deep breath. No specific complaints of runny nose, cough, sore throat or chest congestion. Her increased difficulty breathing started last night. She does not really recall specific wheezes or cough. She has had some edema in her feet but not really worse than her baseline. She is essentially bedridden, requiring assistance with all activities of daily living. Her last admissions to the hospital were in August of this year when she had significant anemia requiring transfusion and MRSA bacteremia of unclear source. Last May and June she had 2 admissions with volume overload related to CHF. In talking with her she has not had any nausea, vomiting or abdominal pain. She has had generalized aches and pains all over and is currently uncomfortable in the ER bed. Previous wounds are almost completely healed including those in her sacral area. No recent issues with diarrhea or focused complaints about urination. No reports of any chest pain. She was covered empirically in the emergency room with Rocephin and azithromycin for potential pulmonary infection. Chest x-ray did not show any infiltrates or definitive pulmonary edema. She was found however to have elevated white count, initial elevation and lactic acid along with initial elevation in heart rate. Urinalysis was found to be abnormal as were some other labs and request was made for admission. History is obtained from patient and supplemented by her son. Her hurting all over is in part because she has not had her usual pain medication today. Review of Systems 2 General: Reports: Other (ROS as per HPI or as otherwise noted here) Medications/Allergies Home Medications Medication Instructions Recorded Confirmed Last Taken Type apixaban 5 mg tablet (Eliquis) 5 mg PO BID 07/18/19 01/15/24 01/15/24 History ropinirole 1 mg tablet 1 mg PO DAILY 07/18/19 01/15/24 01/14/24 History docusate sodium 100 mg tablet 100 mg PO BID 01/06/20 01/15/24 01/15/24 History (Stool Softener) ondansetron HCl 4 mg tablet 4 mg PO Q6H PRN Nausea 01/25/23 01/15/24 Unknown History albuterol sulfate 90 mcg/actuation 1 inh inhalation Q6H PRN shortness 02/02/23 01/15/24 01/14/24 Rx aerosol inhaler of breath or wheezing #8.5 grams fluticasone fur. 100 mcg-umeclid 1 inh inhalation DAILY #60 ea 02/02/23 01/15/24 01/15/24 Rx 62.5 mcg-vilant 25 mcg inhalat.powder (Trelegy Ellipta) magnesium oxide 400 mg (241.3 mg 400 mg PO BID #6 tabs 02/02/23 01/15/24 01/15/24 Rx magnesium) tablet acetaminophen 325 mg tablet 650 mg PO Q4H PRN Pain OR FEVER 08/15/23 01/15/24 01/11/24 History bisacodyl 10 mg rectal suppository 10 mg MA DAILY PRN Constipation 08/15/23 01/15/24 Unknown History (Dulcolax (bisacodyl)) carboxymethylcellulose sodium 1 % 1 drp ophthalmic (eye) PRN DRY EYES 08/15/23 01/15/24 Unknown History eye drops (Artificial Tears (carboxymethylcellulose)) duloxetine 60 mg capsule,delayed 60 mg PO DAILY 08/15/23 01/15/24 01/15/24 History release hydrocodone 5 mg-acetaminophen 325 1 tab PO Q4H PRN Pain 08/15/23 01/15/24 01/11/24 History mg tablet insulin glargine 100 unit/mL (3 70 unit SUBCUT BID 08/15/23 01/15/24 01/15/24 History mL) subcutaneous pen (Lantus Solostar U-100 Insulin) magnesium hydroxide 400 mg/5 mL 30 ml PO DAILY PRN Constipation 08/15/23 01/15/24 Unknown History oral suspension (Milk of Magnesia) rosuvastatin 20 mg tablet 20 mg PO DAILY 08/15/23 01/15/24 01/14/24 History sodium phosphates 19 gram-7 118 ml MA DAILY PRN Constipation 08/15/23 01/15/24 Unknown History gram/118 mL enema (Fleet Enema) diltiazem HCl 180 mg 180 mg PO DAILY #30 caps 08/16/23 01/15/24 01/15/24 Rx capsule,extended release 24 hr (Cardizem CD) furosemide 20 mg tablet (Lasix) 20 mg PO QAM #30 tabs 08/16/23 01/15/24 01/15/24 Rx chlorhexidine gluconate 4 % See Rx Instructions .Route .COMPLEX 01/15/24 01/15/24 01/10/24 History topical liquid (Hibiclens) cholecalciferol (vitamin D3) 1,250 1 mcg PO Q7D 01/15/24 01/15/24 01/10/24 History mcg (50,000 unit) capsule diclofenac sodium 1 % topical gel See Rx Instructions .Route .COMPLEX 01/15/24 01/15/24 Unknown History ferrous sulfate 325 mg (65 mg 325 mg PO DAILY 01/15/24 01/15/24 01/15/24 History iron) tablet insulin lispro 100 unit/mL See Rx Instructions .Route .COMPLEX 01/15/24 01/15/24 01/15/24 History subcutaneous pen (Humalog KwikPen (U-100) Insulin) mupirocin 2 % topical ointment 1 applic topical BID 01/15/24 01/15/24 Unknown History nystatin 100,000 unit/gram topical 1 applic topical BID PRN SKIN 01/15/24 01/15/24 Unknown History powder REDNESS pantoprazole 40 mg tablet,delayed 40 mg PO DAILY 01/15/24 01/15/24 01/15/24 History release Allergies Allergy/AdvReac Type Severity Reaction Status Date / Time morphine Allergy ALGY-Rash Verified 01/15/24 09:30 quinine Allergy ALGY-Rash Verified 01/15/24 09:30 Sulfa (Sulfonamide Allergy ALGY-Rash Verified 01/15/24 09:30 Antibiotics) Penicillins AdvReac ALGY-Rash Verified 01/15/24 09:30 PFSH Acute 2 PFSH: Medical History (Updated 01/15/24 @ 15:13 by Kerry Cruz MD) Heart failure with preserved left ventricular function History of echocardiogram 08/2023 technically difficult study due to poor ultrasonic windows, grossly normal LV systolic function, grade 1 diastolic dysfunction, mild MR, mild TR, left atrial dilitation Osteoporosis DEXA 09/2023 Right femoral neck T score -4.2 and Z score -0.3; L spine T score 0.2, Z score 0.9, fracture risk 10 yr probability 45%, hip fracture 22.9% ESBL 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 difficile colitis Gastroesophageal reflux disease Hyperlipidemia On apixaban therapy History of ESBL E. coli infection History of MRSA infection History of small bowel obstruction Medically managed to date Diabetes mellitus Coronary artery disease HTN (hypertension), malignant COPD (chronic obstructive pulmonary disease) Morbid obesity Surgical History History of colonoscopy (~2013) History of bladder suspension procedure History of orthopedic surgery Wrist and left leg History of cholecystectomy History of tubal ligation History of appendectomy Family History Other CAD (coronary artery disease) Cancer Social History (Updated 01/15/24 @ 14:38 by Kerry Cruz MD) Smoking and tobacco/nicotine status: former use of tobacco/nicotine Quit status (tobacco/nicotine): has quit using Alcohol intake: never Substance/Drug Use: never Caregiver/support person: Yes (Son ) Housing: Retirement Vitals/I&O/Wt Last Vital Signs Temp 98.1 F 01/15/24 09:20 Pulse 95 01/15/24 12:16 Resp 13 01/15/24 12:16 BP 139/73 01/15/24 12:16 Pulse Ox 97 01/15/24 12:16 O2 Del Method Nasal Cannula 01/15/24 12:16 O2 Flow Rate 4 01/15/24 09:20 Weight last 48 hrs Weight 122.47 kg Physical Exam 2 Narrative: Patient is awake and alert. Able to provide her own history. Looks both acutely and chronically ill. Normocephalic. Extraocular movements are intact. Mucosal membranes are dry. Neck is supple. Lungs are remarkable for 1 area of wheezing in the right apices that subsequently cleared. Pursed lip breathing. No rhonchi. Breath sounds are decreased at both bases. Cardiovascular exam reveals a regular rhythm though heart sounds are distant. Abdomen is soft, nontender. There is some erythema under the pannus left side more so than right. In the groin region normal external genitalia with erythema most notable in the left groin and to a lesser extent in the right groin. No current catheter. Lower extremities are puffy but not really demonstrating pitting edema right now. No calf tenderness. Capillary refill is brisk at the toes. Attempts to evaluate sacral area deferred at this time due to patient's complaints of pain since she has not had her usual pain medication dosing. Per nursing staff hide approximately centimeter area of erythema in the sacral area that appeared to be healing, at least stage I, may be stage II with 1 small broken area. Patient moves all extremities and has clear speech but is generally weak. Data 01/15/24 09:14 01/15/24 10:14 Other Labs: Radiology Impressions Chest X-Ray 01/15/24 09:25 IMPRESSION: No acute findings. Laboratory Results WBC 16.34 10^3/uL (3.29-11.43) H 01/15/24 09:14 RBC 3.87 10^6/uL (3.85-5.65) 01/15/24 09:14 Hgb 10.90 g/dL (11.27-16.99) L 01/15/24 09:14 Hct 37.4 % (36-47) 01/15/24 09:14 MCV 96.6 fl (85-98) 01/15/24 09:14 MCH 28.2 pg (27-33) 01/15/24 09:14 MCHC 29.1 g/dL (30-55) L 01/15/24 09:14 RDW 15.9 % (12.1-15.1) H 01/15/24 09:14 Plt Count 305 10^3/cmm (157-399) 01/15/24 09:14 MPV 11.6 fL (7.4-10.4) H 01/15/24 09:14 Neut % (Auto) 67.9 % 01/15/24 09:14 Lymph % (Auto) 20.8 % 01/15/24 09:14 [place] % (Auto) 7.2 % 01/15/24 09:14 Eos % (Auto) 1.5 % 01/15/24 09:14 Baso % (Auto) 0.9 % 01/15/24 09:14 Neut # (Auto) 11.11 10^3/uL (1.8-7.7) H 01/15/24 09:14 Lymph # (Auto) 3.4 10^3/uL (0.8-4.8) 01/15/24 09:14 [place] # (Auto) 1.2 10^3/uL (0.2-0.9) H 01/15/24 09:14 Eos # (Auto) 0.2 10^3/uL (0.0-0.8) 01/15/24 09:14 Baso # (Auto) 0.1 10^3/uL (0.0-0.1) 01/15/24 09:14 Nucleated RBC % (auto) 0.4 % 01/15/24 09:14 Nucleated RBCs # 0.1 /100WBC 01/15/24 09:14 Specimen Type Arterial 01/15/24 09:29 Sample Site Radial, right 01/15/24 09:29 ABG pH 7.44 (7.35-7.45) 01/15/24 09:29 ABG pCO2 51.2 mmHg (35-45) H 01/15/24 09:29 ABG pO2 57.7 mmHg (80.0-100.0) L 01/15/24 09:29 ABG HCO3 34.8 mmol/L (22-26) H 01/15/24 09:29 ABG O2 Saturation 89.2 01/15/24 09:29 ABG Base Excess 9.4 mmol/L (-2.0-2.0) H 01/15/24 09:29 [place] Test Pos 01/15/24 09:29 A-a O2 Gradient 3.7 mmHg (5-10) L 01/15/24 09:29 Hematocrit 31.1 % (37-47) L 01/15/24 09:29 Hgb O2 Saturation 87.6 % (95-100) L 01/15/24 09:29 Carboxyhemoglobin 1.8 %THgb (0.4-20.1) 01/15/24 09:29 Methemoglobin 0.1 % (0.4-1.5) L 01/15/24 09:29 Total Hemoglobin 10.1 g/dL (12-16) L 01/15/24 09:29 Sodium 137.0 mmol/L (131-143) 01/15/24 09:29 Potassium 4.2 mmol/L (3.5-5.0) 01/15/24 09:29 Glucose 177.0 mg/dL (70-115) H 01/15/24 09:29 Ionized Calcium 1.2 mmol/L (1.1-1.4) 01/15/24 09:29 O2 Delivery Device Nc 01/15/24 09:29 O2 Liters/Min 4.0 % 01/15/24 09:29 Dry Paste Supervisor ID [place] 01/15/24 09:29 Sodium 137 mmol/L (136-145) 01/15/24 10:14 Potassium 4.3 mmol/L (3.5-5.1) 01/15/24 10:14 Chloride 94 mmol/L (98-107) L 01/15/24 10:14 Carbon Dioxide 31 mmol/L (22-29) H 01/15/24 10:14 Anion Gap 16.3 (5-19) 01/15/24 10:14 BUN 21 mg/dL (8-23) 01/15/24 10:14 Creatinine 0.8 mg/dL (0.5-0.9) 01/15/24 10:14 GFR Calculation Not Reportable 01/15/24 10:14 Glucose 194 mg/dL (65-115) H 01/15/24 10:14 Calculated Osmolality 292 mOsm/kg (285-295) 01/15/24 10:14 Lactate 2.5 mmol/L (0.5-2.2) H 01/15/24 10:14 Calcium 9.2 mg/dL (8.5-10.5) 01/15/24 10:14 Total Bilirubin 0.2 mg/dL (0.15-1.2) 01/15/24 10:14 AST 23 U/L (0-32) 01/15/24 10:14 ALT 20 U/L (0-33) 01/15/24 10:14 Alkaline Phosphatase 119 U/L (35-105) H 01/15/24 10:14 Troponin T Baseline 39 ng/L (0-10) H 01/15/24 10:14 NT-Pro-B Natriuret Pep 1107 pg/mL (0-450) H 01/15/24 10:14 Total Protein 6.8 g/dL (6.6-8.7) 01/15/24 10:14 Albumin 3.3 g/dL (3.5-5.2) L 01/15/24 10:14 Globulin 3.5 g/dL (1.3-4.6) 01/15/24 10:14 Urine Color Yellow (Yellow) 01/15/24 11:03 Urine Appearance Slightly cloudy (CLEAR) 01/15/24 11:03 Urine pH 8 (5-7) H 01/15/24 11:03 Ur Specific [place] 1.010 (1.005-1.030) 01/15/24 11:03 Urine Protein Trace (Negative) 01/15/24 11:03 Urine Glucose (UA) Norm (Normal) 01/15/24 11:03 Urine Ketones 1+ (Negative) H 01/15/24 11:03 Urine Blood 2+ (Negative) H 01/15/24 11:03 Urine Nitrate Negative (Negative) 01/15/24 11:03 Urine Bilirubin Neg (Negative) 01/15/24 11:03 Urine Urobilinogen Norm mg/dL (Negative) 01/15/24 11:03 Ur Leukocyte Esterase 2+ (Negative) H 01/15/24 11:03 Urine RBC None /hpf (0-2) 01/15/24 11:03 Urine WBC 15-25 /hpf (0-5) H 01/15/24 11:03 Ur Squamous Epith Cells 0-4 /hpf (0-5) H 01/15/24 11:03 Amorphous Sediment Not Reportable 01/15/24 11:03 Urine Bacteria 3+ /hpf (NONE) H 01/15/24 11:03 Urine Mucus None /hpf 01/15/24 11:03 Micro: Microbiology 01/15/24 10:14 Blood Culture - Preliminary Blood SPECIMEN COLLECTED 01/15/24 10:16 Blood Culture - Preliminary Blood SPECIMEN COLLECTED A&P Assessment and plan (1) Shortness of breath: Presenting complaint for EMS cough. Oxygen saturations were reported at 74% on 7 L by nasal cannula. Chronically on 4 L by nasal cannula. Received a breathing treatment with DuoNeb and route and was improved once here. ABG at presentation showed 7.44/51/57. No described URI symptoms. Has not had notable wheezing. No pleuritic chest pain. Is on chronic anticoagulation with Eliquis. Has not been experiencing increased edema that she can recall. Initial heart rates in the low 100s which could suggest A-fib with RVR but not unexpected in the setting of EMS transport and hypoxemia. Differential primarily includes acute on chronic COPD exacerbation versus acute on chronic heart failure with preserved ejection fraction plus or minus a component of obesity hypoventilation. Acute viral infection also within differential though not describing classical presentation of such presently. Dyspnea could also be secondary to infection elsewhere. (2) COPD (chronic obstructive pulmonary disease): Chronic COPD, with acute exacerbation. Audible wheezing not present at the time of my examination nor by patient description, however she clinically improved however with DuoNeb administered and route to the ER with decrease in oxygen need to baseline levels and improved heart rate. Former smoker who quit once she started residing in the skilled facility regularly. Chronically on Trelegy Ellipta and albuterol as needed. She has chronic hypoxic and hypercapnic respiratory failure. (3) Obesity hypoventilation syndrome: Suspect contribution to presentation particularly with limited physical activity/exercise/movement tolerance (4) UTI (urinary tract infection): Acute cystitis without hematuria present on admission in a patient with a history of longstanding issues with recurrent UTIs. In the past has had a Curry catheter but developed significant urethral dilatation and no longer has a chronic indwelling catheter. Does not describe acute urinary symptoms but has leukocytosis with a bit of a left shift, mild tachycardia at presentation and slight elevation in inital lactic acid. At this time patient meets criteria for systemic inflammatory response syndrome with elevation in white blood count; not meeting severe sepsis criteria. Clinically feel the mild tachycardia and lactic acid elevation are secondary to acute dyspnea and hypoxemia present prior to presentation in ED. Reported sats at outside facility 74% on 7L bnc per EMS, improved after breathing treatment in route to ED. Does not report any recent antibiotic treatment at skilled facility for UTI symptoms. (5) History of ESBL E. 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 Gets chlorhexidine gluconate baths for 6 days once a month along with mupirocin nasal for 6 days once a month with plan for 6 months of management. (7) Heart failure with preserved left ventricular function: Echocardiogram in August 2023 showed grossly normal left ventricular systolic function with grade 1 diastolic dysfunction. Was a technically difficult study due to poor ultrasonic windows. She is chronically on low-dose Lasix. BNP is elevated but lower than values prior stay. Chest x-ray and clinical exam without obvious pulmonary edema. Presently appears to be chronic, not acute though acute on chronic CHF remains in the differential for presentation. (8) Chronic atrial fibrillation: Initially with transient A-fib with RVR, now rate controlled. Chronically on diltiazem. (9) On apixaban therapy: Chronic anticoagulation secondary to history of chronic atrial fibrillation. (10) Hypertension: Has a history of malignant hypertension in the past. Currently appears better controlled, essential hypertension with furosemide and diltiazem. (11) Hyperlipidemia: Chronically on rosuvastatin (12) Diabetes mellitus: Type II, insulin requiring, with hyperglycemia. Managed with twice daily long- acting insulin and sliding scale. (13) Sacral pressure sore: Stage I-II, present on admission. Unable to personally visualize but per nursing staff looks to be a healing wound which is consistent with prior documentation. She does not walk and has limited functional status. (14) Anemia: History of iron deficiency anemia. Earlier this year she had significant anemia with a hemoglobin of 6.8. She is on iron replacement and Eliquis was ultimately resumed and she has been tolerating it. Hemoglobin currently stable. (15) Gastroesophageal reflux disease: Chronically on PPI (16) Restless leg syndrome: Chronically on ropinirole (17) Long-term current use of opiate analgesic: Chronically on hydrocodone as needed (18) History of Clostridioides difficile colitis: Plan Tinea corporis involving groin and pannus worse on the left side in both areas then on the right, present on admission Chronically on vitamin D replacement Chronically on duloxetine Inpatient admission Received Rocephin and azithromycin in the emergency room for empiric pulmonary coverage Given abnormal urinalysis and history of both ESBL E. coli UTIs frequently in the past along with MRSA bacteremia this year of unclear source, will change antibiotics to vancomycin and meropenem Patient has a known penicillin allergy but she tolerated meropenem earlier this year; reviewed this with patient in the presence of her son, agreeable to management plan Follow-up pending blood and urine cultures DuoNebs, monitor need to add additional coverage for COPD; have not instituted steroids secondary to significant hyperglycemia noted in the past and this known diabetic though we may have to consider Continue home dosing of Lasix Monitor strict I's and O's and daily weights Has a 1500 mL fluid restriction outpatient, I have ordered for 2 L fluid restriction here presently Continue home diltiazem Continue home apixaban Monitor hemoglobin periodically as well as for signs of bleeding Monitor blood pressures for need to adjust management Continue statin therapy Continue long-acting insulin at a slightly lower dose along with sliding scale Frequent turn and wound management as needed Continue home iron Continue home PPI Continue home ropinirole Continue home hydrocodone dosing Home Voltaren currently held as nonformulary Continue home nystatin powder Continue home duloxetine Continuing home magnesium, holding home vitamin D Have continued scheduled docusate and 1 as needed constipation medication; other PRNs presently held VTE prophylaxis: Chronically on Eliquis GI Prophylaxis: PPI Antibiotics: Received 1 dose of Rocephin and azithromycin in the ED on 01/14; vancomycin and meropenem started on 01/14 due to history of ESBL E. 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 Line(s): peripheral IVs Disposition plan: Return to [facility] anticipated, possibly with antibiotic therapy depending on clinical course Code Status: Full Code per facility records Supportive care otherwise Findings, concerns and plans were discussed with patient and they were given an opportunity to ask questions Attestations 2 Medical Necessity Statement*: Anticipated stay greater than two midnights in this 78-year-old presenting with dyspnea and increased oxygen requirement. Clinically COPD exacerbation though there may be a component of CHF as well as a component of obesity hypoventilation. She has chronic respiratory failure but symptoms were more pronounced today. In addition she has and a history of recurrent abnormal urinalysis urine infections with ESBL E. coli. Earlier this year she had MRSA bacteremia of unclear source. With current leukocytosis and systemic inflammatory response signs and symptoms at high risk of progression to sepsis without appropriate management. Currently receiving broad-spectrum IV antibiotics and close monitoring. Coding Level of Care Code 34266 High Time for a total of 75 minutes, includes reviewing past or interval history, examining/interviewing patient, placing orders, updating patient/family/other support and documenting encounter Diagnoses Shortness of breath R06.02 COPD (chronic obstructive pulmonary disease) J44.9 Obesity hypoventilation syndrome E66.2 UTI (urinary tract infection) N39.0 History of ESBL E. coli infection Z86.19 History of MRSA infection Z86.14 Heart failure with preserved left ventricular function I50.30 Chronic atrial fibrillation I48.20 On apixaban therapy Z79.01 Hypertension I10 Hyperlipidemia E78.5 Type 2 diabetes mellitus with hyperglycemia, with long-term current use of insulin E11.9 Sacral pressure sore L89.159 Anemia D64.9 Gastroesophageal reflux disease K21.9 Restless leg syndrome G25.81 Long-term current use of opiate analgesic Z79.891 History of Clostridioides difficile colitis Z86.19
[2024-01-15 13:07] LABS: Troponin 5 2HR 40.66 ng/L (0-10); Troponin 5 2HR Delta 1.66 ABS# (0-10)
[2024-01-15 14:11] LABS: Lactic Acid level (Lactate) 1.9 mmol/L (0.5-2.2)
[2024-01-15] MEDS: HYDROcodone-acetaminophen 5-325 mg Tablet 1 TAB PO (15:05)
[2024-01-15] MEDS: meropenem 1,000 mg SDV 1000 MG IVP ×2 (15:05→22:49)
--- NOTE | 2024-01-15 15:25 | ECG_ITS ---
[facility] Test Date: 2024-01-15 Pat Name: Purvi Sparks Department: Room: Gender: Female Leader Assembler: : 1945 Requested By: Alex Trinidad Order Number: [id number] Nia MD: Leonel Rodriguez M.D. Measurements Intervals [place] Rate: 108 P: -28 PA: 205 QRS: -21 QRSD: 68 T: 72 QT: 309 QTc: 415 Interpretive Statements SINUS TACHYCARDIA, first-degree AV block LOW QRS VOLTAGE IN PRECORDIAL LEADS [QRS DEFLECTION < 1.0 mV IN CHEST LEADS] POSSIBLE ANTERIOR MYOCARDIAL INFARCTION , PROBABLY OLD [30 ms Q WAVE IN V3/V4, OR R < 0.2 mV IN V4] INFERIOR MYOCARDIAL INFARCTION , PROBABLY OLD [40+ ms Q WAVE AND/OR ST/T ABNORMALITY IN II/aVF] Compared to ECG 01/24/2023 00:28:00 Myocardial infarct finding now present Electronically Signed On 01-15-2024 23:45:01 CDT by Leonel Rodriguez M.D. [email or web address]
--- NOTE | 2024-01-15 15:47 | ECG_ITS ---
[facility] Test Date: 2024-01-15 Pat Name: Purvi Sparks Department: Room: Gender: Female [employer]: : 1945 Requested By: Alex Trinidad Order Number: [id number] Nia MD: Leonel Rodriguez M.D. Measurements Intervals [place] Rate: 93 P: 43 HI: 223 QRS: -21 QRSD: 74 T: 69 QT: 348 QTc: 435 Interpretive Statements SINUS RHYTHM WITH FIRST DEGREE AV BLOCK LOW QRS VOLTAGE IN PRECORDIAL LEADS [QRS DEFLECTION < 1.0 mV IN CHEST LEADS] POSSIBLE ANTERIOR MYOCARDIAL INFARCTION , PROBABLY OLD [30 ms Q WAVE IN V3/V4, OR R < 0.2 mV IN V4] Compared to ECG 01/15/2024 11:09:33 First degree AV block now present Myocardial infarct finding still present Electronically Signed On 01-15-2024 23:41:58 CDT by Leonel Rodriguez M.D. [id number]
[2024-01-15] MEDS: vancomycin 1,500 MG/300 ML PIGGYBACK 200 MG IV (16:01)
[2024-01-15 16:02] LABS: Adenovirus Not Detected (NOT DETECT); Chlamydia Pneumoniae Not Detected (NOT DETECT); Coronavirus 229E,HKU1,NL63,OC4 Not Detected (NOT DETECT); Human Metapneumovirus Not Detected (NOT DETECT); Human Rhinovirus/Enterovirus Not Detected (NOT DETECT); Influenza A Not Detected (NOT DETECT); Influenza A H1 Not Detected (NOT DETECT); Influenza A H1-2009 Not Detected (NOT DETECT); Influenza A H3 Not Detected (NOT DETECT); Influenza B Not Detected (NOT DETECT); Mycoplasma Pneumoniae Not Detected (NOT DETECT); Parainfluenza Virus Type 1 Not Detected (NOT DETECT); Parainfluenza Virus Type 2 Not Detected (NOT DETECT); Parainfluenza Virus Type 3 Not Detected (NOT DETECT); Parainfluenza Virus Type 4 Not Detected (NOT DETECT); Respiratory Syncytial Virus A Not Detected (NOT DETECT); Respiratory Syncytial Virus B Not Detected (NOT DETECT); SARS-COV-2 Not Detected (NOT DETECT)
[2024-01-15 16:26] LABS: Troponin 5 6HR 38.59 ng/L (0-10)
[2024-01-15 16:27] LABS: Troponin 5 6HR Delta -0.41 ng/L (0-12)
[2024-01-15] MEDS: mupirocin oint 22 gm 1 APPLIC TOPICAL (17:49)
[2024-01-15] MEDS: nystatin powder 15 gm Btl 1 APPLIC TOPICAL (17:50)
[2024-01-15] MEDS: magnesium oxide 400 mg tablet PO (17:50)
[2024-01-15] MEDS: docusate sodium 100 mg Capsule PO (17:50)
[2024-01-15] MEDS: lactobacillus 1 Tablet 1 TAB PO (17:50)
[2024-01-15 21:00] LABS: Glucose Point of Care 171 mg/dL (70-110)
[2024-01-15] MEDS: insulin glargine 100 units/1 mL 50 UNIT SUBCUT (21:00)
[2024-01-15] MEDS: apixaban 5 mg Tablet PO (21:00)
[2024-01-15] MEDS: insulin lispro 100 unit/1 mL SUBCUT (21:00)
[2024-01-15] MEDS: water for injection-sterile SDV 10 mL 20 ML IVP (22:49)
[2024-01-16] VITALS (9 sets, daily range): BP systolic 111–162; BP diastolic 72–80; PULSE 86–104; RESP 18–20; TEMP 36.3–36.8; O2SAT 92–99; BMI 46.7
[2024-01-16] MEDS: vancomycin 1,500 MG/300 ML PIGGYBACK 200 MG IV ×2 (02:40→21:16)
[2024-01-16 05:03] LABS: Basophils # 0.2 10^3/uL (0.0-0.1); Basophils % 0.9 %; Eosinophils # 0.3 10^3/uL (0.0-0.8); Lymphocytes # 2.9 10^3/uL (0.8-4.8); Lymphocytes % 18.4 %; Mean Corpuscular HGB Conc 28.9 g/dL (30-55); Mean Corpuscular Hemoglobin 28.4 pg (27-33); Mean Corpuscular Volume 98.3 fl (85-98); Mean Platelet Volume 11.4 fL (7.4-10.4); Monocytes # 1.4 10^3/uL (0.2-0.9); Neutrophils # 10.76 10^3/uL (1.8-7.7); Neutrophils % 68.1 %; Nucleated Red Blood Cells % 0.3 %; Platelet Count 281 10^3/cmm (157-399); Red Blood Count 3.56 10^6/uL (3.85-5.65); Red Cell Distribution Width 15.8 % (12.1-15.1); White Blood Count 15.84 10^3/uL (3.29-11.43)
[2024-01-16 05:21] LABS: Anion Gap 16.3 (5-19); Blood Urea Nitrogen 23 mg/dL (8-23); Calcium 9.1 mg/dL (8.5-10.5); Carbon Dioxide 34 mmol/L (22-29); Chloride 95 mmol/L (98-107); Creatinine Clr Calc Pharmacy 72.7554; Glucose 137 mg/dL (65-115); Magnesium 1.9 mg/dL (1.7-2.3); Osmolality Calculated 298 mOsm/kg (285-295); Potassium 4.3 mmol/L (3.5-5.1); Sodium 141 mmol/L (136-145)
[2024-01-16] MEDS: water for injection-sterile SDV 10 mL 20 ML IVP ×2 (05:53→22:57)
[2024-01-16] MEDS: meropenem 1,000 mg SDV 1000 MG IVP ×3 (05:53→22:56)
[2024-01-16] MEDS: FUROsemide 20 mg Tablet PO (05:53)
[2024-01-16 06:09] LABS: Glucose Point of Care 147 mg/dL (70-110)
[2024-01-16] MEDS: ferrous sulfate EC 325 mg Tablet PO (08:07)
[2024-01-16] MEDS: duloxetine 60 mg Capsule PO (08:07)
[2024-01-16] MEDS: insulin lispro 100 unit/1 mL SUBCUT ×4 (08:08→21:16)
[2024-01-16] MEDS: ropinirole 1 mg Tablet PO (08:08)
[2024-01-16] MEDS: lactobacillus 1 Tablet 1 TAB PO ×2 (08:08→16:56)
[2024-01-16] MEDS: docusate sodium 100 mg Capsule PO ×2 (08:08→16:56)
[2024-01-16] MEDS: atorvastatin 40 mg Tablet 80 MG PO (08:08)
[2024-01-16] MEDS: pantoprazole DR 40 mg Tablet PO (08:08)
[2024-01-16] MEDS: magnesium oxide 400 mg tablet PO ×2 (08:08→16:56)
[2024-01-16] MEDS: apixaban 5 mg Tablet PO ×2 (08:08→21:16)
[2024-01-16] MEDS: dilTIAZem ER (24HR) 180 mg Capsule PO (08:08)
[2024-01-16] MEDS: insulin glargine 100 units/1 mL 50 UNIT SUBCUT ×2 (09:07→21:15)
[2024-01-16] MEDS: nystatin powder 15 gm Btl 1 APPLIC TOPICAL ×2 (09:10→16:57)
[2024-01-16] MEDS: mupirocin oint 22 gm 1 APPLIC TOPICAL ×2 (09:10→16:56)
[2024-01-16 11:20] LABS: Glucose Point of Care 272 mg/dL (70-110)
[2024-01-16 14:49] LABS: Vancomycin Trough 20.1 ug/mL (10-15)
[2024-01-16] MEDS: water for injection-sterile 20 ML (15:28)
[2024-01-16 16:01] LABS: Glucose Point of Care 144 mg/dL (70-110)
--- NOTE | 2024-01-16 17:13 | P.PN_ITS ---
Subjective 2 Subjective: Patient was seen this morning, she is alert to person, to place, not to time, she follows commands, does report cough, shortness of breath, she tells me that she uses 4 L at the assisted, currently on 4 L here, I also spoke to her daughter over the phone, while patient was in the room, Vitals/I&O/Wt Last Vital Signs Temp 97.7 F 01/16/24 16:00 Pulse 86 01/16/24 16:00 Resp 20 H 01/16/24 16:00 BP 126/76 01/16/24 16:00 Pulse Ox 93 01/16/24 16:00 O2 Del Method Nasal Cannula 01/16/24 16:00 O2 Flow Rate 4 01/16/24 08:25 01/16/24 01/16/24 01/16/24 06:59 14:59 22:59 Intake Total 540 / 1260 480 / 480 20 / 500 Balance 540 / 1260 480 / 480 20 / 500 Weight last 48 hrs Weight 123.377 kg Weight 123.377 kg Weight 123.604 kg Weight 122.47 kg Physical Exam 2 Const: COMMON NORMALS: no acute distress and patient oriented x3 Resp: COMMON NORMALS: normal respiratory effort, No retractions and No use of accessory muscles Cardio: COMMON NORMALS: regular rate, regular rhythm, S1 normal heart sound present and S2 normal heart sound present RATE: regular rate RHYTHM: r egular rhythm HEART SOUNDS: S1 normal heart sound present and S2 normal heart sound present GI: COMMON NORMALS: Normal to inspection, nondistended, normoactive bowel sounds present and non-tender Extremity: COMMON NORMALS: no calf tenderness NARRATIVE EXTREMITY EXAM: 1 Plus edema Neuro: COMMON NORMALS: patient oriented x3 Psych: COMMON NORMALS: mental status grossly normal Data 01/16/24 04:16 01/16/24 04:16 Micro: Microbiology 01/15/24 10:16 Blood Culture - Preliminary Blood NEGATIVE TO DATE 01/15/24 10:14 Blood Culture - Preliminary Blood NEGATIVE TO DATE A&P Assessment and plan (1) Shortness of breath: -Possible fluid overload, 1 dose IV Lasix today ? Also concerns for possible aspiration, speech therapy eval, continue meropenem (2) COPD (chronic obstructive pulmonary disease): -Does not seem to be in exacerbation monitor. 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 Gets chlorhexidine gluconate baths for 6 days once a month along with mupirocin nasal for 6 days once a month with plan for 6 months of management. (7) Heart failure with preserved left ventricular function: Echocardiogram in August 2023 showed grossly normal left ventricular systolic function with grade 1 diastolic dysfunction. -1 dose IV Lasix (8) Chronic atrial fibrillation: Initially with transient A-fib with RVR, now rate controlled. Chronically on diltiazem. (9) On apixaban therapy: Chronic anticoagulation secondary to history of chronic atrial fibrillation. (10) Hypertension: Has a history of malignant hypertension in the past. Currently appears better controlled, essential hypertension with furosemide and diltiazem. (11) Hyperlipidemia: Chronically on rosuvastatin (12) Diabetes mellitus: Type II, insulin requiring, with hyperglycemia. Managed with twice daily long- acting insulin and sliding scale. (13) Sacral pressure sore: Stage I-II, present on admission. Unable to personally visualize but per nursing staff looks to be a healing wound which is consistent with prior documentation. She does not walk and has limited functional status. (14) Anemia: History of iron deficiency anemia. Earlier this year she had significant anemia with a hemoglobin of 6.8. She is on iron replacement and Eliquis was ultimately resumed and she has been tolerating it. Hemoglobin currently stable. (15) Gastroesophageal reflux disease: Chronically on PPI (16) Restless leg syndrome: Chronically on ropinirole (17) Long-term current use of opiate analgesic: Chronically on hydrocodone as needed (18) History of Clostridioides difficile colitis: Plan VTE prophylaxis: Chronically on Eliquis GI Prophylaxis: PPI Antibiotics: Received 1 dose of Rocephin and azithromycin in the ED on 01/14; vancomycin and meropenem started on 01/14 due to history of ESBL E. 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 Line(s): peripheral IVs Disposition plan: Return to [facility] [place], possibly with antibiotic therapy depending on clinical course Code Status: Full Code per facility records Supportive care otherwise Findings, concerns and plans were discussed with patient and they were given an opportunity to ask questions Plan for today continue vancomycin, meropenem speech therapy eval, aspiration precautions, IV diuresis hold off on steroids Attestations 2 Medical Necessity Statement*: Patient requires hospitalization for fluid overload, acute hypoxia, concerns for aspiration, Diagnoses Shortness of breath R06.02 COPD (chronic obstructive pulmonary disease) J44.9 Obesity hypoventilation syndrome E66.2 UTI (urinary tract infection) N39.0 History of ESBL E. coli infection Z86.19 History of MRSA infection Z86.14 Heart failure with preserved left ventricular function I50.30 Chronic atrial fibrillation I48.20 On apixaban therapy Z79.01 Hypertension I10 Hyperlipidemia E78.5 Type 2 diabetes mellitus with hyperglycemia, with long-term current use of insulin E11.9 Sacral pressure sore L89.159 Anemia D64.9 Gastroesophageal reflux disease K21.9 Restless leg syndrome G25.81 Long-term current use of opiate analgesic Z79.891 History of Clostridioides difficile colitis Z86.19
[2024-01-16] MEDS: FUROsemide 10 mg/mL SDV 4mL 40 MG IVP (18:01)
[2024-01-16 20:30] LABS: Glucose Point of Care 240 mg/dL (70-110)
[2024-01-16] MEDS: HYDROcodone-acetaminophen 5-325 mg Tablet 1 TAB PO (23:27)
--- NOTE | 2024-01-16 23:31 | PC.NURSE ---
pt moses was leaking and pt had to be change x2
[2024-01-17] VITALS (9 sets, daily range): BP systolic 117–147; BP diastolic 68–84; PULSE 68–95; RESP 16–18; TEMP 36.4–36.8; O2SAT 95–98
[2024-01-17 05:27] LABS: Basophils # 0.1 10^3/uL (0.0-0.1); Basophils % 0.9 %; Eosinophils # 0.3 10^3/uL (0.0-0.8); Eosinophils % 2.2 %; Hematocrit 31.8 % (36-47); Lymphocytes # 2.4 10^3/uL (0.8-4.8); Lymphocytes % 18.8 %; Mean Corpuscular HGB Conc 28.6 g/dL (30-55); Mean Corpuscular Hemoglobin 27.5 pg (27-33); Mean Corpuscular Volume 96.1 fl (85-98); Mean Platelet Volume 11.3 fL (7.4-10.4); Monocytes # 1.1 10^3/uL (0.2-0.9); Monocytes % 8.8 %; Neutrophils % 67.9 %; Nucleated Red Blood Cells % 0 %; Platelet Count 262 10^3/cmm (157-399); Red Blood Count 3.31 10^6/uL (3.85-5.65); Red Cell Distribution Width 15.7 % (12.1-15.1)
[2024-01-17] MEDS: water for injection-sterile SDV 10 mL 20 ML IVP ×2 (05:50→22:26)
[2024-01-17] MEDS: meropenem 1,000 mg SDV 1000 MG IVP ×3 (05:50→22:26)
[2024-01-17 05:55] LABS: Anion Gap 12.6 (5-19); Blood Urea Nitrogen 23 mg/dL (8-23); Calcium 8.6 mg/dL (8.5-10.5); Carbon Dioxide 35 mmol/L (22-29); Chloride 96 mmol/L (98-107); Creatinine Clr Calc Pharmacy 73.5586; Glucose 175 mg/dL (65-115); NT Pro B Type Natriuretic Pept 768 pg/mL (0-450); Osmolality Calculated 298 mOsm/kg (285-295); Potassium 3.6 mmol/L (3.5-5.1); Sodium 140 mmol/L (136-145)
[2024-01-17 06:43] LABS: Glucose Point of Care 175 mg/dL (70-110)
[2024-01-17] MEDS: insulin lispro 100 unit/1 mL SUBCUT ×3 (07:47→20:42)
[2024-01-17] MEDS: nystatin powder 15 gm Btl 1 APPLIC TOPICAL ×2 (07:47→17:12)
[2024-01-17] MEDS: insulin glargine 100 units/1 mL 50 UNIT SUBCUT ×2 (07:47→20:42)
[2024-01-17] MEDS: duloxetine 60 mg Capsule PO (07:48)
[2024-01-17] MEDS: dilTIAZem ER (24HR) 180 mg Capsule PO (07:48)
[2024-01-17] MEDS: pantoprazole DR 40 mg Tablet PO (07:48)
[2024-01-17] MEDS: magnesium oxide 400 mg tablet PO ×2 (07:48→17:12)
[2024-01-17] MEDS: ferrous sulfate EC 325 mg Tablet PO (07:48)
[2024-01-17] MEDS: mupirocin oint 22 gm 1 APPLIC TOPICAL ×2 (07:48→17:11)
[2024-01-17] MEDS: atorvastatin 40 mg Tablet 80 MG PO (07:48)
[2024-01-17] MEDS: lactobacillus 1 Tablet 1 TAB PO ×2 (07:48→17:13)
[2024-01-17] MEDS: docusate sodium 100 mg Capsule PO ×2 (07:49→17:13)
[2024-01-17] MEDS: ropinirole 1 mg Tablet PO (07:49)
[2024-01-17] MEDS: apixaban 5 mg Tablet PO ×2 (07:49→20:42)
--- NOTE | 2024-01-17 11:48 | P.PN_ITS ---
Subjective 2 Subjective: Patient was seen this morning, she is alert oriented x 3, following all commands, shortness of breath is improving, she is a bit frustrated about getting pancake syrup with her pancakes, she tells me that she did not like it, Vitals/I&O/Wt Last Vital Signs Temp 97.5 F L 01/17/24 07:19 Pulse 95 01/17/24 09:52 Resp 17 01/17/24 09:52 BP 128/74 01/17/24 07:19 Pulse Ox 98 01/17/24 09:52 O2 Del Method Nasal Cannula 01/17/24 09:52 O2 Flow Rate 4 01/17/24 09:52 01/16/24 01/17/24 01/17/24 22:59 06:59 14:59 Intake Total 260 / 740 420 / 1160 118 / 118 Output Total 800 / 800 Balance 260 / 740 -380 / 360 118 / 118 Weight last 48 hrs Weight 125.645 kg Weight 123.377 kg Weight 123.377 kg Weight 123.604 kg Physical Exam 2 Const: COMMON NORMALS: no acute distress and patient oriented x3 Resp: COMMON NORMALS: normal respiratory effort, No retractions, No use of accessory muscles and clear to auscultation bilaterally AUSCULTATION: clear to auscultation bilaterally Cardio: COMMON NORMALS: regular rate, regular rhythm, S1 normal heart sound present and S2 normal heart sound present RATE: regular rate RHYTHM: r egular rhythm HEART SOUNDS: S1 normal heart sound present and S2 normal heart sound present GI: COMMON NORMALS: Normal to inspection, nondistended, normoactive bowel sounds present and non-tender Extremity: COMMON NORMALS: no pedal edema Neuro: COMMON NORMALS: patient oriented x3 Psych: COMMON NORMALS: mental status grossly normal Urinary Catheter Management: Curry: Cath Placed During This Visit: yes Reason for Continuing Indwelling Catheter: Assist Healing of Perineal & Sacral Wounds- Incontinent Patients Urinary Catheter Date of Insertion: 01/16/24 Urinary Catheter Time of Insertion: 18:28 Data 01/17/24 04:25 01/17/24 04:25 Micro: Microbiology 01/15/24 11:03 Urine Culture - Preliminary Urine,Clean Catch Gram Negative Rods 01/15/24 10:16 Blood Culture - Preliminary Blood NEGATIVE TO DATE 01/15/24 10:14 Blood Culture - Preliminary Blood NEGATIVE TO DATE A&P Assessment and plan (1) Shortness of breath: -Possible fluid overload, 1 dose IV Lasix today ? Also concerns for possible aspiration, speech therapy eval, continue meropenem (2) COPD (chronic obstructive pulmonary disease): -Does not seem to be in exacerbation monitor. 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 Gets chlorhexidine gluconate baths for 6 days once a month along with mupirocin nasal for 6 days once a month with plan for 6 months of management. (7) Heart failure with preserved left ventricular function: Echocardiogram in August 2023 showed grossly normal left ventricular systolic function with grade 1 diastolic dysfunction. -1 dose IV Lasix (8) Chronic atrial fibrillation: Initially with transient A-fib with RVR, now rate controlled. Chronically on diltiazem. (9) On apixaban therapy: Chronic anticoagulation secondary to history of chronic atrial fibrillation. (10) Hypertension: Has a history of malignant hypertension in the past. Currently appears better controlled, essential hypertension with furosemide and diltiazem. (11) Hyperlipidemia: Chronically on rosuvastatin (12) Diabetes mellitus: Type II, insulin requiring, with hyperglycemia. Managed with twice daily long- acting insulin and sliding scale. (13) Sacral pressure sore: Stage I-II, present on admission. Unable to personally visualize but per nursing staff looks to be a healing wound which is consistent with prior documentation. She does not walk and has limited functional status. (14) Anemia: History of iron deficiency anemia. Earlier this year she had significant anemia with a hemoglobin of 6.8. She is on iron replacement and Eliquis was ultimately resumed and she has been tolerating it. Hemoglobin currently stable. (15) Gastroesophageal reflux disease: Chronically on PPI (16) Restless leg syndrome: Chronically on ropinirole (17) Long-term current use of opiate analgesic: Chronically on hydrocodone as needed (18) History of Clostridioides difficile colitis: Plan VTE prophylaxis: Chronically on Eliquis GI Prophylaxis: PPI Antibiotics: Received 1 dose of Rocephin and azithromycin in the ED on 01/14; vancomycin and meropenem started on 01/14 due to history of ESBL E. 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 [place] therapy depending on clinical course Code Status: Full Code per facility records Supportive care otherwise Findings, concerns and plans were discussed with patient and they were given an opportunity to ask questions Plan for today continue vancomycin, meropenem speech therapy eval, aspiration precautions, BNP 768 1 dose IV Lasix Attestations 2 Medical Necessity Statement*: Patient requires hospitalization for fluid overload, requiring IV diuresis, UTI requiring antibiotics, Diagnoses Shortness of breath R06.02 COPD (chronic obstructive pulmonary disease) J44.9 Obesity hypoventilation syndrome E66.2 UTI (urinary tract infection) N39.0 History of ESBL E. coli infection Z86.19 History of MRSA infection Z86.14 Heart failure with preserved left ventricular function I50.30 Chronic atrial fibrillation I48.20 On apixaban therapy Z79.01 Hypertension I10 Hyperlipidemia E78.5 Type 2 diabetes mellitus with hyperglycemia, with long-term current use of insulin E11.9 Sacral pressure sore L89.159 Anemia D64.9 Gastroesophageal reflux disease K21.9 Restless leg syndrome G25.81 Long-term current use of opiate analgesic Z79.891 History of Clostridioides difficile colitis Z86.19
[2024-01-17 12:38] LABS: Glucose Point of Care 180 mg/dL (70-110)
[2024-01-17] MEDS: FUROsemide 10 mg/mL SDV 4mL 40 MG IVP (12:41)
[2024-01-17] MEDS: water for injection-sterile 20 ML (14:52)
[2024-01-17] MEDS: vancomycin 1,500 MG/300 ML PIGGYBACK 200 MG IV (14:53)
[2024-01-17 16:53] LABS: Glucose Point of Care 140 mg/dL (70-110)
[2024-01-17 20:38] LABS: Glucose Point of Care 168 mg/dL (70-110)
[2024-01-18] VITALS (9 sets, daily range): BP systolic 108–141; BP diastolic 65–78; PULSE 79–111; RESP 16–18; TEMP 36.6–37; O2SAT 91–100
[2024-01-18] MEDS: water for injection-sterile SDV 10 mL 20 ML IVP (05:37)
[2024-01-18] MEDS: meropenem 1,000 mg SDV 1000 MG IVP (05:37)
[2024-01-18 06:17] LABS: Basophils # 0.1 10^3/uL (0.0-0.1); Basophils % 0.7 %; Eosinophils # 0.3 10^3/uL (0.0-0.8); Eosinophils % 2.1 %; Hematocrit 32.6 % (36-47); Lymphocytes # 2.3 10^3/uL (0.8-4.8); Lymphocytes % 17.2 %; Mean Corpuscular HGB Conc 28.8 g/dL (30-55); Mean Corpuscular Hemoglobin 27.9 pg (27-33); Mean Corpuscular Volume 96.7 fl (85-98); Mean Platelet Volume 10.9 fL (7.4-10.4); Monocytes # 1.3 10^3/uL (0.2-0.9); Neutrophils # 9.05 10^3/uL (1.8-7.7); Neutrophils % 68.9 %; Nucleated Red Blood Cells % 0 %; Platelet Count 278 10^3/cmm (157-399); Red Blood Count 3.37 10^6/uL (3.85-5.65); Red Cell Distribution Width 15.6 % (12.1-15.1); White Blood Count 13.12 10^3/uL (3.29-11.43)
[2024-01-18 06:39] LABS: Anion Gap 11.7 (5-19); Blood Urea Nitrogen 17 mg/dL (8-23); Calcium 8.4 mg/dL (8.5-10.5); Carbon Dioxide 35 mmol/L (22-29); Chloride 97 mmol/L (98-107); Creatinine Clr Calc Pharmacy 73.4584; Glucose 142 mg/dL (65-115); NT Pro B Type Natriuretic Pept 680 pg/mL (0-450); Osmolality Calculated 294 mOsm/kg (285-295); Potassium 3.7 mmol/L (3.5-5.1); Sodium 140 mmol/L (136-145)
[2024-01-18 06:42] LABS: Glucose Point of Care 140 mg/dL (70-110)
[2024-01-18] MEDS: dilTIAZem ER (24HR) 180 mg Capsule PO (08:34)
[2024-01-18] MEDS: ropinirole 1 mg Tablet PO (08:34)
[2024-01-18] MEDS: atorvastatin 40 mg Tablet 80 MG PO (08:34)
[2024-01-18] MEDS: magnesium oxide 400 mg tablet PO ×2 (08:34→18:13)
[2024-01-18] MEDS: apixaban 5 mg Tablet PO ×2 (08:35→22:04)
[2024-01-18] MEDS: lactobacillus 1 Tablet 1 TAB PO ×2 (08:35→18:13)
[2024-01-18] MEDS: pantoprazole DR 40 mg Tablet PO (08:35)
[2024-01-18] MEDS: ferrous sulfate EC 325 mg Tablet PO (08:35)
[2024-01-18] MEDS: docusate sodium 100 mg Capsule PO (08:35)
[2024-01-18] MEDS: insulin glargine 100 units/1 mL 50 UNIT SUBCUT ×2 (08:35→22:03)
[2024-01-18] MEDS: duloxetine 60 mg Capsule PO (08:35)
[2024-01-18] MEDS: nystatin powder 15 gm Btl 1 APPLIC TOPICAL ×2 (08:36→18:13)
[2024-01-18] MEDS: mupirocin oint 22 gm 1 APPLIC TOPICAL ×2 (08:36→18:13)
[2024-01-18 08:44] LABS: Vancomycin Trough 19.7 ug/mL (10-15)
[2024-01-18] MEDS: vancomycin 1,500 MG/300 ML PIGGYBACK 200 MG IV (08:52)
[2024-01-18] MEDS: FUROsemide 10 mg/mL SDV 4mL 40 MG IVP (09:45)
[2024-01-18 11:10] LABS: Glucose Point of Care 218 mg/dL (70-110)
[2024-01-18] MEDS: insulin lispro 100 unit/1 mL SUBCUT ×2 (12:13→22:03)
--- NOTE | 2024-01-18 13:23 | PM.PN ---
Subjective Subjective: - Patient seen this morning, patient's daughters at bedside, she denies any fevers, chills, cough, she remains on her home oxygen, she had good urine output yesterday, over 3 L of, her shortness of breath has improved, Vitals/I&O/Wt Last Vital Signs Temp 98.6 F 01/18/24 11:50 Pulse 79 01/18/24 11:50 Resp 18 01/18/24 11:50 BP 118/75 01/18/24 11:50 Pulse Ox 100 01/18/24 08:23 O2 Del Method Nasal Cannula 01/18/24 11:50 O2 Flow Rate 4 01/18/24 08:23 01/17/24 01/18/24 01/18/24 22:59 06:59 14:59 Intake Total 438 / 674 1020 / 1020 Output Total 2350 / 2350 200 / 2550 700 / 700 Balance -1912 / -1676 -200 / -1876 320 / 320 Weight last 48 hrs Weight 125.362 kg Weight 125.362 kg Weight 125.645 kg Physical Exam Const: COMMON NORMALS: no acute distress and patient oriented x3 Resp: COMMON NORMALS: normal respiratory effort, No retractions, No use of accessory muscles and clear to auscultation bilaterally AUSCULTATION: clear to auscultation bilaterally Cardio: COMMON NORMALS: regular rate, regular rhythm, S1 normal heart sound present and S2 normal heart sound present RATE: regular rate RHYTHM: regular rhythm HEART SOUNDS: S1 normal heart sound present and S2 normal heart sound present GI: COMMON NORMALS: Normal to inspection, nondistended, normoactive bowel sounds present and non-tender Extremity: NARRATIVE EXTREMITY EXAM: 1+ edema Neuro: COMMON NORMALS: patient oriented x3 Psych: COMMON NORMALS: mental status grossly normal Urinary Catheter Management: Curry: Cath Placed During This Visit: yes Reason for Continuing Indwelling Catheter: Assist Healing of Perineal & Sacral Wounds- Incontinent Patients Urinary Catheter Date of Insertion: 01/16/24 Urinary Catheter Time of Insertion: 18:28 Data 01/18/24 05:10 01/18/24 05:10 Micro: Microbiology 01/15/24 11:03 Urine Culture - Preliminary Urine,Clean Catch Escherichia coli A&P Assessment and plan (1) Shortness of breath: - 1 dose IV Lasix today (2) COPD (chronic obstructive pulmonary disease): -Does not seem to be in exacerbation monitor. 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 Gets chlorhexidine gluconate baths for 6 days once a month along with mupirocin nasal for 6 days once a month with plan for 6 months of management. (7) Heart failure with preserved left ventricular function: Echocardiogram in August 2023 showed grossly normal left ventricular systolic function with grade 1 diastolic dysfunction. -1 dose IV Lasix (8) Chronic atrial fibrillation: Initially with transient A-fib with RVR, now rate controlled. Chronically on diltiazem. (9) On apixaban therapy: Chronic anticoagulation secondary to history of chronic atrial fibrillation. (10) Hypertension: Has a history of malignant hypertension in the past. Currently appears better controlled, essential hypertension with furosemide and diltiazem. (11) Hyperlipidemia: Chronically on rosuvastatin (12) Diabetes mellitus: Type II, insulin requiring, with hyperglycemia. Managed with twice daily long-acting insulin and sliding scale. (13) Sacral pressure sore: Stage I-II, present on admission. Unable to personally visualize but per nursing staff looks to be a healing wound which is consistent with prior documentation. She does not walk and has limited functional status. (14) Anemia: History of iron deficiency anemia. Earlier this year she had significant anemia with a hemoglobin of 6.8. She is on iron replacement and Eliquis was ultimately resumed and she has been tolerating it. Hemoglobin currently stable. (15) Gastroesophageal reflux disease: Chronically on PPI (16) Restless leg syndrome: Chronically on ropinirole (17) Long-term current use of opiate analgesic: Chronically on hydrocodone as needed (18) History of Clostridioides difficile colitis: Plan VTE prophylaxis: Chronically on Eliquis GI Prophylaxis: PPI Antibiotics: Received 1 dose of Rocephin and azithromycin in the ED on 01/14; vancomycin and meropenem started on 7/9 due to history of ESBL E. 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 coli switch to oral ciprofloxacin, 1 dose IV Lasix plan on discharging in the next 24 hours Attestations Medical Necessity Statement*: Patient requires hospitalization today due to shortness of breath, fluid overload requiring Lasix therapy Diagnoses Shortness of breath R06.02 COPD (chronic obstructive pulmonary disease) J44.9 Obesity hypoventilation syndrome E66.2 UTI (urinary tract infection) N39.0 History of ESBL E. coli infection Z86.19 History of MRSA infection Z86.14 Heart failure with preserved left ventricular function I50.30 Chronic atrial fibrillation I48.20 On apixaban therapy Z79.01 Hypertension I10 Hyperlipidemia E78.5 Type 2 diabetes mellitus with hyperglycemia, with long-term current use of insulin E11.9 Sacral pressure sore L89.159 Anemia D64.9 Gastroesophageal reflux disease K21.9 Restless leg syndrome G25.81 Long-term current use of opiate analgesic Z79.891 History of Clostridioides difficile colitis Z86.19
[2024-01-18 16:55] LABS: Glucose Point of Care 137 mg/dL (70-110)
[2024-01-18 21:43] LABS: Glucose Point of Care 262 mg/dL (70-110)
[2024-01-18] MEDS: ciprofloxacin 500 mg Tablet 250 MG PO (22:04)
[2024-01-19] VITALS (11 sets, daily range): BP systolic 104–126; BP diastolic 55–75; PULSE 83–97; RESP 16–19; TEMP 36.5–37.1; O2SAT 91–96
[2024-01-19] MEDS: HYDROcodone-acetaminophen 5-325 mg Tablet 1 TAB PO ×2 (00:27→10:18)
[2024-01-19 04:08] LABS: Basophils # 0.1 10^3/uL (0.0-0.1); Basophils % 0.7 %; Eosinophils # 0.3 10^3/uL (0.0-0.8); Eosinophils % 1.5 %; Hematocrit 32.5 % (36-47); Lymphocytes # 5.1 10^3/uL (0.8-4.8); Lymphocytes % 27.2 %; Mean Corpuscular HGB Conc 28.9 g/dL (30-55); Mean Corpuscular Hemoglobin 27.7 pg (27-33); Mean Corpuscular Volume 95.9 fl (85-98); Mean Platelet Volume 11.2 fL (7.4-10.4); Monocytes % 10.4 %; Neutrophils # 11.18 10^3/uL (1.8-7.7); Neutrophils % 59.3 %; Nucleated Red Blood Cells % 0 %; Platelet Count 302 10^3/cmm (157-399); Red Blood Count 3.39 10^6/uL (3.85-5.65); Red Cell Distribution Width 15.2 % (12.1-15.1); White Blood Count 18.83 10^3/uL (3.29-11.43)
[2024-01-19 04:39] LABS: Anion Gap 10.3 (5-19); Blood Urea Nitrogen 14 mg/dL (8-23); Calcium 8.9 mg/dL (8.5-10.5); Carbon Dioxide 37 mmol/L (22-29); Chloride 96 mmol/L (98-107); Creatinine Clr Calc Pharmacy 72.6552; Glucose 73 mg/dL (65-115); NT Pro B Type Natriuretic Pept 877 pg/mL (0-450); Osmolality Calculated 289 mOsm/kg (285-295); Potassium 3.3 mmol/L (3.5-5.1); Sodium 140 mmol/L (136-145)
[2024-01-19 06:32] LABS: Glucose Point of Care 83 mg/dL (70-110)
[2024-01-19] MEDS: ipratropium-albuterol 3 mL Neb INHALATION (08:42)
[2024-01-19] MEDS: dilTIAZem ER (24HR) 180 mg Capsule PO (09:03)
[2024-01-19] MEDS: atorvastatin 40 mg Tablet 80 MG PO (09:03)
[2024-01-19] MEDS: pantoprazole DR 40 mg Tablet PO (09:03)
[2024-01-19] MEDS: apixaban 5 mg Tablet PO ×2 (09:03→21:44)
[2024-01-19] MEDS: ferrous sulfate EC 325 mg Tablet PO (09:04)
[2024-01-19] MEDS: magnesium oxide 400 mg tablet PO ×2 (09:04→17:05)
[2024-01-19] MEDS: ropinirole 1 mg Tablet PO (09:04)
[2024-01-19] MEDS: lactobacillus 1 Tablet 1 TAB PO ×2 (09:04→17:05)
[2024-01-19] MEDS: ciprofloxacin 500 mg Tablet 250 MG PO ×2 (09:05→21:44)
[2024-01-19] MEDS: docusate sodium 100 mg Capsule PO ×2 (09:05→17:04)
[2024-01-19] MEDS: duloxetine 60 mg Capsule PO (09:05)
[2024-01-19] MEDS: insulin glargine 100 units/1 mL 50 UNIT SUBCUT ×2 (09:06→21:44)
[2024-01-19 09:09] LABS: Procalcitonin 0.12 ng/mL (0-0.5)
[2024-01-19 09:13] LABS: Erythrocyte Sedimentation Rate 56 mm/hr (0-15)
[2024-01-19] MEDS: FUROsemide 10 mg/mL SDV 4mL 40 MG IVP (09:29)
[2024-01-19] MEDS: metOLazone 5 MG Tablet PO (09:29)
[2024-01-19] MEDS: potassium chloride ER 20 mEq Tablet 40 MEQ PO (09:30)
[2024-01-19] MEDS: mupirocin oint 22 gm 1 APPLIC TOPICAL ×2 (09:30→17:05)
[2024-01-19] MEDS: nystatin powder 15 gm Btl 1 APPLIC TOPICAL ×2 (09:30→17:06)
[2024-01-19 09:42] LABS: LAB Peripheral Smear Sent for Review
[2024-01-19 11:04] LABS: Glucose Point of Care 152 mg/dL (70-110)
[2024-01-19] MEDS: insulin lispro 100 unit/1 mL SUBCUT ×3 (11:36→21:45)
--- NOTE | 2024-01-19 14:56 | PM.PN ---
Subjective Subjective: Patient was seen this morning, she alert to person, to place, not to time, she follows all commands, she is upset about being here in the hospital, denies any fevers, no chills, no pain complaints, no abdominal pain no diarrhea, we discussed her persistent leukocytosis, she is afebrile, normotensive, she does have a sacral stage I DTI that could be the source of her leukocytosis, but denies a cough, no trouble swallowing no headache, blurry vision, no neck stiffness, no shortness of breath, we discussed monitoring her hemoglobin, inflammatory markers, following her blood cultures, she is agreeable Vitals/I&O/Wt Last Vital Signs Temp 98.7 F 01/19/24 12:16 Pulse 85 01/19/24 14:00 Resp 17 01/19/24 12:16 BP 110/58 01/19/24 12:16 Pulse Ox 94 01/19/24 12:16 O2 Del Method Nasal Cannula 01/19/24 12:16 O2 Flow Rate 3 01/19/24 08:43 01/18/24 01/19/24 01/19/24 22:59 06:59 14:59 Intake Total 600 / 1620 460 / 460 Output Total 1200 / 1900 100 / 2000 1999 / 1999 Balance -600 / -280 -100 / -380 -1540 / -1540 Weight last 48 hrs Weight 123.094 kg Weight 123.094 kg Weight 125.362 kg Weight 125.362 kg Physical Exam Const: COMMON NORMALS: no acute distress and patient oriented x3 Resp: COMMON NORMALS: normal respiratory effort, No retractions, No use of accessory muscles and clear to auscultation bilaterally AUSCULTATION: clear to auscultation bilaterally Cardio: COMMON NORMALS: regular rate, regular rhythm, S1 normal heart sound present and S2 normal heart sound present RATE: regular rate RHYTHM: regular rhythm HEART SOUNDS: S1 normal heart sound present and S2 normal heart sound present GI: COMMON NORMALS: Normal to inspection, nondistended, normoactive bowel sounds present and non-tender Extremity: NARRATIVE EXTREMITY EXAM: 1+ pitting edema Neuro: COMMON NORMALS: patient oriented x3 Psych: COMMON NORMALS: mental status grossly normal Urinary Catheter Management: Curry: Cath Placed During This Visit: yes Reason for Continuing Indwelling Catheter: Other Urinary Catheter Date of Insertion: 01/16/24 Urinary Catheter Time of Insertion: 18:28 Data 01/19/24 02:40 01/19/24 02:40 Micro: Microbiology 01/15/24 11:03 Urine Culture - Preliminary Urine,Clean Catch Escherichia coli Gram Negative Rods A&P Assessment and plan (1) Shortness of breath: - 1 dose IV Lasix today --2 L (2) COPD (chronic obstructive pulmonary disease): -Does not seem to be in exacerbation monitor. 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 Gets chlorhexidine gluconate baths for 6 days once a month along with mupirocin nasal for 6 days once a month with plan for 6 months of management. (7) Heart failure with preserved left ventricular function: Echocardiogram in August 2023 showed grossly normal left ventricular systolic function with grade 1 diastolic dysfunction. -1 dose IV Lasix (8) Chronic atrial fibrillation: Initially with transient A-fib with RVR, now rate controlled. Chronically on diltiazem. (9) On apixaban therapy: Chronic anticoagulation secondary to history of chronic atrial fibrillation. (10) Hypertension: Has a history of malignant hypertension in the past. Currently appears better controlled, essential hypertension with furosemide and diltiazem. (11) Hyperlipidemia: Chronically on rosuvastatin (12) Diabetes mellitus: Type II, insulin requiring, with hyperglycemia. Managed with twice daily long-acting insulin and sliding scale. (13) Sacral pressure sore: Stage I-II, present on admission. Unable to personally visualize but per nursing staff looks to be a healing wound which is consistent with prior documentation. She does not walk and has limited functional status. (14) Anemia: History of iron deficiency anemia. Earlier this year she had significant anemia with a hemoglobin of 6.8. She is on iron replacement and Eliquis was ultimately resumed and she has been tolerating it. Hemoglobin currently stable. (15) Gastroesophageal reflux disease: Chronically on PPI (16) Restless leg syndrome: Chronically on ropinirole (17) Long-term current use of opiate analgesic: Chronically on hydrocodone as needed (18) History of Clostridioides difficile colitis: Plan Patient has persistent leukocytosis ? Follow blood cultures -Follow urine cultures -CRP, Pro-Jovon, sed rate ? Monitor fevers ? Monitor for diarrhea VTE prophylaxis: Chronically on Eliquis GI Prophylaxis: PPI Antibiotics: Received 1 dose of Rocephin and azithromycin in the ED on 01/14; vancomycin and meropenem started on 01/14 due to history of ESBL E. 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 Line(s): peripheral IVs Disposition plan: [place] [facility] [place], possibly with antibiotic therapy depending on clinical course Code Status: Full Code per facility records Supportive care otherwise Findings, concerns and plans were discussed with patient and they were given an opportunity to ask questions Plan for today -currently on ciprofloxacin 1 dose IV Lasix,follow leukocytosis Attestations Medical Necessity Statement*: Patient requires hospitalization for leukocytosis, fluid overload, UTI Diagnoses Shortness of breath R06.02 COPD (chronic obstructive pulmonary disease) J44.9 Obesity hypoventilation syndrome E66.2 UTI (urinary tract infection) N39.0 History of ESBL E. coli infection Z86.19 History of MRSA infection Z86.14 Heart failure with preserved left ventricular function I50.30 Chronic atrial fibrillation I48.20 On apixaban therapy Z79.01 Hypertension I10 Hyperlipidemia E78.5 Type 2 diabetes mellitus with hyperglycemia, with long-term current use of insulin E11.9 Sacral pressure sore L89.159 Anemia D64.9 Gastroesophageal reflux disease K21.9 Restless leg syndrome G25.81 Long-term current use of opiate analgesic Z79.891 History of Clostridioides difficile colitis Z86.19
[2024-01-19 16:39] LABS: Glucose Point of Care 176 mg/dL (70-110)
[2024-01-19 21:33] LABS: Glucose Point of Care 181 mg/dL (70-110)
[2024-01-20] VITALS (9 sets, daily range): BP systolic 101–118; BP diastolic 51–72; PULSE 84–107; RESP 16–18; TEMP 36.6–36.9; O2SAT 90–96
[2024-01-20 04:09] LABS: Basophils # 0.1 10^3/uL (0.0-0.1); Basophils % 0.7 %; Eosinophils # 0.3 10^3/uL (0.0-0.8); Eosinophils % 1.7 %; Hematocrit 31.8 % (36-47); Lymphocytes # 2.2 10^3/uL (0.8-4.8); Lymphocytes % 15.1 %; Mean Corpuscular HGB Conc 28.6 g/dL (30-55); Mean Corpuscular Hemoglobin 27.7 pg (27-33); Mean Platelet Volume 11.2 fL (7.4-10.4); Monocytes # 1.5 10^3/uL (0.2-0.9); Neutrophils # 10.54 10^3/uL (1.8-7.7); Neutrophils % 71.7 %; Nucleated Red Blood Cells % 0 %; Platelet Count 262 10^3/cmm (157-399); Red Blood Count 3.28 10^6/uL (3.85-5.65); White Blood Count 14.71 10^3/uL (3.29-11.43)
[2024-01-20 04:40] LABS: Procalcitonin 0.14 ng/mL (0-0.5)
[2024-01-20 04:44] LABS: Alanine Aminotransferase 14 U/L (0-33); Albumin Level 3.1 g/dL (3.5-5.2); Alkaline Phosphatase 98 U/L (35-105); Anion Gap 12.6 (5-19); Aspartate Amino Transferase 15 U/L (0-32); Blood Urea Nitrogen 19 mg/dL (8-23); C Reactive Protein 36.9 mg/L (0.0-4.9); Calcium 8.8 mg/dL (8.5-10.5); Carbon Dioxide 37 mmol/L (22-29); Chloride 95 mmol/L (98-107); Creatinine Clr Calc Pharmacy 72.6552; Glucose 113 mg/dL (65-115); Osmolality Calculated 295 mOsm/kg (285-295); Potassium 3.6 mmol/L (3.5-5.1); Sodium 141 mmol/L (136-145); Total Bilirubin 0.2 mg/dL (0.15-1.2); Total Protein 6.1 g/dL (6.6-8.7)
[2024-01-20] MEDS: HYDROcodone-acetaminophen 5-325 mg Tablet 1 TAB PO ×2 (05:59→10:11)
[2024-01-20 06:51] LABS: Glucose Point of Care 114 mg/dL (70-110)
[2024-01-20] MEDS: dilTIAZem ER (24HR) 180 mg Capsule PO (08:52)
[2024-01-20] MEDS: lactobacillus 1 Tablet 1 TAB PO ×2 (08:52→17:27)
[2024-01-20] MEDS: docusate sodium 100 mg Capsule PO ×2 (08:52→17:27)
[2024-01-20] MEDS: magnesium oxide 400 mg tablet PO ×2 (08:52→17:27)
[2024-01-20] MEDS: nystatin powder 15 gm Btl 1 APPLIC TOPICAL ×2 (08:53→17:27)
[2024-01-20] MEDS: duloxetine 60 mg Capsule PO (08:53)
[2024-01-20] MEDS: atorvastatin 40 mg Tablet 80 MG PO (08:53)
[2024-01-20] MEDS: apixaban 5 mg Tablet PO ×2 (08:53→20:27)
[2024-01-20] MEDS: ferrous sulfate EC 325 mg Tablet PO (08:53)
[2024-01-20] MEDS: mupirocin oint 22 gm 1 APPLIC TOPICAL ×2 (08:53→17:27)
[2024-01-20] MEDS: ropinirole 1 mg Tablet PO (08:53)
[2024-01-20] MEDS: pantoprazole DR 40 mg Tablet PO (08:53)
[2024-01-20] MEDS: ciprofloxacin 500 mg Tablet 250 MG PO ×2 (08:53→20:26)
[2024-01-20] MEDS: insulin glargine 100 units/1 mL 50 UNIT SUBCUT ×2 (10:12→20:27)
[2024-01-20 11:10] LABS: Glucose Point of Care 221 mg/dL (70-110)
[2024-01-20] MEDS: insulin lispro 100 unit/1 mL SUBCUT ×2 (12:15→17:27)
--- NOTE | 2024-01-20 15:44 | P.PN_ITS ---
Subjective 2 Subjective: Patient was seen this morning, she denies any fevers, no chills, no cough, no abdominal pain, is complaining of muscle spasms in her right thigh Vitals/I&O/Wt Last Vital Signs Temp 97.9 F 01/20/24 11:19 Pulse 96 01/20/24 11:19 Resp 17 01/20/24 11:19 BP 109/63 01/20/24 11:19 Pulse Ox 95 01/20/24 11:19 O2 Del Method Nasal Cannula 01/20/24 11:19 O2 Flow Rate 3 01/20/24 08:42 01/20/24 01/20/24 01/20/24 06:59 14:59 22:59 Intake Total 360 / 360 Output Total 300 / 3400 Balance -300 / -2720 360 / 360 Weight last 48 hrs Weight 123.576 kg Weight 123.094 kg Weight 123.094 kg Physical Exam 2 Const: COMMON NORMALS: no acute distress and patient oriented x3 Resp: COMMON NORMALS: normal respiratory effort, No retractions, No use of accessory muscles and clear to auscultation bilaterally AUSCULTATION: clear to auscultation bilaterally Cardio: COMMON NORMALS: regular rate, regular rhythm, S1 normal heart sound present and S2 normal heart sound present RATE: regular rate RHYTHM: r egular rhythm HEART SOUNDS: S1 normal heart sound present and S2 normal heart sound present GI: COMMON NORMALS: Normal to inspection, nondistended, normoactive bowel sounds present and non-tender Extremity: COMMON NORMALS: no pedal edema Neuro: COMMON NORMALS: patient oriented x3 Psych: COMMON NORMALS: mental status grossly normal Urinary Catheter Management: Curry: Cath Placed During This Visit: yes Reason for Continuing Indwelling Catheter: Assist Healing of Perineal & Sacral Wounds- Incontinent Patients Urinary Catheter Date of Insertion: 01/16/24 Urinary Catheter Time of Insertion: 18:28 Data 01/20/24 02:25 01/20/24 02:25 Micro: Microbiology 01/15/24 11:03 Urine Culture - Final Urine,Clean Catch Escherichia coli Pseudomonas aeruginosa 01/15/24 10:16 Blood Culture - Final Blood NO GROWTH AFTER 5 DAYS 01/15/24 10:14 Blood Culture - Final Blood NO GROWTH AFTER 5 DAYS A&P Assessment and plan (1) Shortness of breath: - -3 L so far ? Hold off on further Lasix doses (2) COPD (chronic obstructive pulmonary disease): -Does not seem to be in exacerbation monitor. (3) Obesity hypoventilation syndrome: Suspect contribution to presentation particularly with limited physical activity/exercise/movement tolerance (4) UTI (urinary tract infection): Evidence of E. 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 Gets chlorhexidine gluconate baths for 6 days once a month along with mupirocin nasal for 6 days once a month with plan for 6 months of management. (7) Heart failure with preserved left ventricular function: Echocardiogram in August 2023 showed grossly normal left ventricular systolic function with grade 1 diastolic dysfunction. (8) Chronic atrial fibrillation: Initially with transient A-fib with RVR, now rate controlled. Chronically on diltiazem. (9) On apixaban therapy: Chronic anticoagulation secondary to history of chronic atrial fibrillation. (10) Hypertension: Has a history of malignant hypertension in the past. Currently appears better controlled, essential hypertension with furosemide and diltiazem. (11) Hyperlipidemia: Chronically on rosuvastatin (12) Diabetes mellitus: Type II, insulin requiring, with hyperglycemia. Managed with twice daily long- acting insulin and sliding scale. (13) Sacral pressure sore: Stage I-II, present on admission. Unable to personally visualize but per nursing staff looks to be a healing wound which is consistent with prior documentation. She does not walk and has limited functional status. (14) Anemia: History of iron deficiency anemia. Earlier this year she had significant anemia with a hemoglobin of 6.8. She is on iron replacement and Eliquis was ultimately resumed and she has been tolerating it. Hemoglobin currently stable. (15) Gastroesophageal reflux disease: Chronically on PPI (16) Restless leg syndrome: Chronically on ropinirole (17) Long-term current use of opiate analgesic: Chronically on hydrocodone as needed (18) History of Clostridioides difficile colitis: Plan Patient has persistent leukocytosis ? Follow blood cultures -Follow urine cultures -CRP, Pro-Jovon, sed rate ? Monitor fevers ? Monitor for diarrhea Stage I 2 sacral DTI, continue to monitor VTE prophylaxis: Chronically on Eliquis GI Prophylaxis: PPI Antibiotics: Received 1 dose of Rocephin and azithromycin in the ED on 01/14; vancomycin and meropenem started on 01/14 due to history of ESBL E. 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 Line(s): peripheral IVs [place] plan[place] [facility] [place] with [place] therapy depending on clinical course Code Status: Full Code per facility records Supportive care otherwise Findings, concerns and plans were discussed with patient and they were given an opportunity to ask questions Plan for today -currently on ciprofloxacinfollow leukocytosis Attestations 2 Medical Necessity Statement*: Patient requires hospitalization for persistent leukocytosis Diagnoses Shortness of breath R06.02 COPD (chronic obstructive pulmonary disease) J44.9 Obesity hypoventilation syndrome E66.2 UTI (urinary tract infection) N39.0 History of ESBL E. coli infection Z86.19 History of MRSA infection Z86.14 Heart failure with preserved left ventricular function I50.30 Chronic atrial fibrillation I48.20 On apixaban therapy Z79.01 Hypertension I10 Hyperlipidemia E78.5 Type 2 diabetes mellitus with hyperglycemia, with long-term current use of insulin E11.9 Sacral pressure sore L89.159 Anemia D64.9 Gastroesophageal reflux disease K21.9 Restless leg syndrome G25.81 Long-term current use of opiate analgesic Z79.891 History of Clostridioides difficile colitis Z86.19
[2024-01-20 16:18] LABS: Glucose Point of Care 144 mg/dL (70-110)
[2024-01-20 20:34] LABS: Glucose Point of Care 132 mg/dL (70-110)
[2024-01-21] VITALS (7 sets, daily range): BP systolic 138–154; BP diastolic 66–76; PULSE 90–99; RESP 17–20; TEMP 36.7–37.1; O2SAT 91–96
[2024-01-21 05:15] LABS: Basophils # 0.1 10^3/uL (0.0-0.1); Basophils % 0.8 %; Eosinophils # 0.2 10^3/uL (0.0-0.8); Eosinophils % 1.6 %; Hematocrit 30.9 % (36-47); Lymphocytes # 2.5 10^3/uL (0.8-4.8); Lymphocytes % 16.6 %; Mean Corpuscular HGB Conc 28.5 g/dL (30-55); Mean Corpuscular Hemoglobin 27.4 pg (27-33); Mean Corpuscular Volume 96.3 fl (85-98); Mean Platelet Volume 11.2 fL (7.4-10.4); Monocytes # 1.3 10^3/uL (0.2-0.9); Monocytes % 8.7 %; Neutrophils # 10.64 10^3/uL (1.8-7.7); Neutrophils % 71.6 %; Nucleated Red Blood Cells % 0 %; Platelet Count 248 10^3/cmm (157-399); Red Blood Count 3.21 10^6/uL (3.85-5.65); Red Cell Distribution Width 14.8 % (12.1-15.1); White Blood Count 14.85 10^3/uL (3.29-11.43)
[2024-01-21 05:44] LABS: Alanine Aminotransferase 12 U/L (0-33); Albumin Level 3.1 g/dL (3.5-5.2); Alkaline Phosphatase 98 U/L (35-105); Anion Gap 10.5 (5-19); Aspartate Amino Transferase 17 U/L (0-32); Blood Urea Nitrogen 22 mg/dL (8-23); C Reactive Protein 46.7 mg/L (0.0-4.9); Calcium 8.7 mg/dL (8.5-10.5); Carbon Dioxide 38 mmol/L (22-29); Chloride 93 mmol/L (98-107); Creatinine Clr Calc Pharmacy 72.8259; Globulin 3.2 g/dL (1.3-4.6); Glucose 117 mg/dL (65-115); Osmolality Calculated 290 mOsm/kg (285-295); Potassium 3.5 mmol/L (3.5-5.1); Procalcitonin 0.16 ng/mL (0-0.5); Sodium 138 mmol/L (136-145); Total Bilirubin 0.2 mg/dL (0.15-1.2); Total Protein 6.3 g/dL (6.6-8.7)
[2024-01-21 06:29] LABS: Glucose Point of Care 120 mg/dL (70-110)
[2024-01-21] MEDS: insulin glargine 100 units/1 mL 50 UNIT SUBCUT (08:28)
[2024-01-21] MEDS: ferrous sulfate EC 325 mg Tablet PO (08:29)
[2024-01-21] MEDS: duloxetine 60 mg Capsule PO (08:29)
[2024-01-21] MEDS: magnesium oxide 400 mg tablet PO (08:29)
[2024-01-21] MEDS: pantoprazole DR 40 mg Tablet PO (08:29)
[2024-01-21] MEDS: ropinirole 1 mg Tablet PO (08:29)
[2024-01-21] MEDS: atorvastatin 40 mg Tablet 80 MG PO (08:29)
[2024-01-21] MEDS: lactobacillus 1 Tablet 1 TAB PO (08:29)
[2024-01-21] MEDS: dilTIAZem ER (24HR) 180 mg Capsule PO (08:29)
[2024-01-21] MEDS: nystatin powder 15 gm Btl 1 APPLIC TOPICAL (08:30)
[2024-01-21] MEDS: mupirocin oint 22 gm 1 APPLIC TOPICAL (08:30)
[2024-01-21] MEDS: apixaban 5 mg Tablet PO (08:38)
[2024-01-21] MEDS: ciprofloxacin 500 mg Tablet 250 MG PO (08:39)
--- NOTE | 2024-01-21 09:32 | PC.SOCIAL ---
IMM Updated Updated pt on IMM. No questions voiced. Provided pt a copy. Initialed, dated, & timed copy in chart.
--- NOTE | 2024-01-21 09:59 | PC.NURSE ---
pt offered turning and to get into w/c pt refused, educ of risks and benefits of turning and getting to w/c. pt continued to refuse turns and getting out of bed to w/c.
--- NOTE | 2024-01-21 11:34 | P.DS_ITS ---
Discharge Providers Date of Admission: 01/15/24 16:17 Date of Discharge: January 21, 2024 Attending Provider at Admission: Trent Gustafson MD Attending Provider at Discharge: Eliot Moore MD Primary Care Provider: Elaine Topete Diagnoses at Discharge Discharge Diagnosis (1) Shortness of breath: Status: Acute (2) COPD (chronic obstructive pulmonary disease): Status: Chronic (3) Obesity hypoventilation syndrome: Status: Acute (4) UTI (urinary tract infection): Status: Acute (5) History of ESBL E. coli infection: Status: Chronic (6) History of MRSA infection: Status: Chronic (7) Heart failure with preserved left ventricular function: Status: Chronic (8) Chronic atrial fibrillation: Status: Chronic (9) On apixaban therapy: Status: Chronic (10) Hypertension: Status: Chronic (11) Hyperlipidemia: Status: Chronic (12) Diabetes mellitus: Status: Chronic (13) Sacral pressure sore: Status: Acute (14) Anemia: Status: Chronic (15) Gastroesophageal reflux disease: Status: Chronic (16) Restless leg syndrome: Status: Chronic (17) Long-term current use of opiate analgesic: Status: Chronic (18) History of Clostridioides difficile colitis: Status: Chronic Reason for Visit Reason for Visit: Resp Distress Hospital Course Hospital Course Purvi Sparks is a 78 year old female who presented to the emergency room with chief complaint of difficulty breathing. She resides at [facility]. Per EMS oxygen saturations were 74% on 7 L by nasal cannula when they arrived. She was given a DuoNeb and route and on arrival here her oxygen saturations were in the low 90s. ABG showed 7.44/51/57 on her usual 4 L by nasal cannula short time later. She has known COPD related to former tobacco use. BMI is 46. Additionally she has a history of heart failure with preserved ejection fraction. No recent changes in medications that she or her son are aware of. She does take diuretics. She indicates that it just became more difficult to get in a good deep breath. No specific complaints of runny nose, cough, sore throat or chest congestion. Her increased difficulty breathi ng started last night. She does not really recall specific wheezes or cough. She has had some edema in her feet but not really worse than her baseline. She is essentially bedridden, requiring assistance with all activities of daily living. Her last admissions to the hospital were in August of this year when she had significant anemia requiring transfusion and MRSA bacteremia of unclear source. Last May and June she had 2 admissions with volume overload related to CHF. In talking with her she has not had any nausea, vomiting or abdominal pain. She has had generalized aches and pains all over and is currently uncomfortable in the ER bed. Previous wounds are almost completely healed including those in her sacral area. No recent issues with diarrhea or focused complaints about urination. No reports of any chest pain. She was covered empirically in the emergency room with Rocephin and azithromycin for potential pulmonary infection. Chest x-ray did not show any infiltrates or definitive pulmonary edema. She was found however to have elevated white count, initial elevation and lactic acid along with initial elevation in heart rate. Urinalysis was found to be abnormal as were some other labs and request was made for admission. History is obtained from patient and supplemented by her son. Her hurting all over is in part because she has not had her usual pain m edication today. Patient was admitted to [facility] for shortness of breath, secondary to possible aspiration, fluid overload, received broad-spectrum antibiotic therapy, overall clinically proved, received IV diuresis, diuresed 3 L. Overall patient clinically improved, seen by speech therapy discharge on dysphagia level 7 diet, easy to chew, thin liquids.Will be discharged on Lasix 40 mg daily with potassium replacement therapy with to recheck of kidney function in 48 hours Patient was also hospitalized for UTI, urine culture showing E. coli, Pseudomonas, will be discharged on ciprofloxacin During her hospitalization, I had extensive discussion with patient and her daughter about patient's sacral DTI, that stage I-II over her sacrum. I think that this is a source of her persistent leukocytosis and her elevated ESR/CRP/Pro-Jovon. Given her morbid obesity, this will be difficult to control. I have recommended for patient to keep off the sacral DTI, she should be reposition every 2 hours, we should use a cone or a pillow to prop her off her sacral DTI she should lay on her side, she should get up out of bed at least 3 times a day, up into a wheelchair, should be ambulatory, optimize her protein in her diet. Whenever I have had this detailed discussion with patient, she refuses to get up out of bed at times, refuses to be reposition at times, refuses to remain off loading her sacral DTI. I discussed with her the morbidity and mortality associated with sacral deep tissue injuries, the risk of spreading the infection, the risk of Tylenol infection to the bone, risk of including but not limited to abscess, osteomyelitis, sepsis, septic shock requiring surgeries, skin grafts, morbidity mortality associated. I had a detailed discussion with Purvi that if she does not take her sacral DTI seriously if we do not keep her off of it, with instructions as above this sacral DTI will result in significant morbidity and mortality. She voiced understanding, all questions answered. Patient had persistent leukocytosis during hospitalization, likely secondary to sacral DTI as above, monitor closely as outpatient, monitor for skin breakdown, discharged on 5 days of doxycycline Patient [facility], from insurance company, Physical Exam Const: COMMON NORMALS: no acute distress and patient oriented x3 Resp: COMMON NORMALS: normal respiratory effort, No retractions, No use of a ccessory muscles and clear to auscultation bilaterally AUSCULTATION: clear to auscultation bilaterally Cardio: COMMON NORMALS: regular rate, regular rhythm, S1 normal heart sound present and S2 normal heart sound present RATE: regular rate RHYTHM: regular rhythm HEART SOUNDS: S1 normal heart sound present and S2 normal heart sound present GI: COMMON NORMALS: Normal to inspection, nondistended, normoactive bowel sounds present and non-tender Extremity: COMMON NORMALS: no calf tenderness and no pedal edema Neuro: COMMON NORMALS: patient oriented x3 Psych: COMMON NORMALS: mental status grossly normal Urinary Catheter Management: Curry: Cath Placed During This Visit: yes Reason for Continuing Indwelling Catheter: Assist Healing of Perineal & Sacral Wounds- Incontinent Patients Urinary Catheter Date of Insertion: 01/16/24 Urinary Catheter Time of Insertion: 18:28 Discharge Data Studies Completed and Pending Completed Studies During Hospitalization Category Date Time Status XR chest 1V portable [id number] Stat Exams 01/15/24 09:25 Completed Pending at discharge Category Date Time Status C Reactive Protein AM LABS Lab 01/22/24 04:00 Ordered Complete Blood Count w/Auto AM LABS Lab 01/22/24 04:00 Ordered Comprehensive Metabolic Panel AM LABS Lab 01/22/24 04:00 Ordered Procalcitonin AM LABS Lab 01/22/24 04:00 Ordered Radiology Impressions Chest X-Ray 01/15/24 09:25 IMPRESSION: No acute findings. Laboratory Results WBC 14.85 10^3/uL (3.29-11.43) H 01/21/24 04:26 RBC 3.21 10^6/uL (3.85-5.65) L 01/21/24 04:26 Hgb 8.80 g/dL (11.27-16.99) L 01/21/24 04:26 Hct 30.9 % (36-47) L 01/21/24 04:26 MCV 96.3 fl (85-98) 01/21/24 04:26 MCH 27.4 pg (27-33) 01/21/24 04:26 MCHC 28.5 g/dL (30-55) L 01/21/24 04:26 RDW 14.8 % (12.1-15.1) 01/21/24 04:26 Plt Count 248 10^3/cmm (157-399) 01/21/24 04:26 MPV 11.2 fL (7.4-10.4) H 01/21/24 04:26 Neut % (Auto) 71.6 % 01/21/24 04:26 Lymph % (Auto) 16.6 % 01/21/24 04:26 [place] % (Auto) 8.7 % 01/21/24 04:26 Eos % (Auto) 1.6 % 01/21/24 04:26 Baso % (Auto) 0.8 % 01/21/24 04:26 Neut # (Auto) 10.64 10^3/uL (1.8-7.7) H 01/21/24 04:26 Lymph # (Auto) 2.5 10^3/uL (0.8-4.8) 01/21/24 04:26 [place] # (Auto) 1.3 10^3/uL (0.2-0.9) H 01/21/24 04:26 Eos # (Auto) 0.2 10^3/uL (0.0-0.8) 01/21/24 04:26 Baso # (Auto) 0.1 10^3/uL (0.0-0.1) 01/21/24 04:26 Nucleated RBC % (auto) 0 % 01/21/24 04:26 Nucleated RBCs # 0.0 /100WBC 01/21/24 04:26 Peripher Smr Path Cons Sent for review 01/19/24 02:40 ESR 56 mm/hr (0-15) H 01/19/24 02:40 Specimen Type Arterial 01/15/24 09:29 Sample Site Radial, right 01/15/24 09:29 ABG pH 7.44 (7.35-7.45) 01/15/24 09:29 ABG pCO2 51.2 mmHg (35-45) H 01/15/24 09:29 ABG pO2 57.7 mmHg (80.0-100.0) L 01/15/24 09:29 ABG HCO3 34.8 mmol/L (22-26) H 01/15/24 09:29 ABG O2 Saturation 89.2 01/15/24 09:29 ABG Base Excess 9.4 mmol/L (-2.0-2.0) H 01/15/24 09:29 Monico Test Pos 01/15/24 09:29 A-a O2 Gradient 3.7 mmHg (5-10) L 01/15/24 09:29 Hematocrit 31.1 % (37-47) L 01/15/24 09:29 Hgb O2 Saturation 87.6 % (95-100) L 01/15/24 09:29 Carboxyhemoglobin 1.8 %THgb (0.4-20.1) 01/15/24 09:29 Methemoglobin 0.1 % (0.4-1.5) L 01/15/24 09:29 Total Hemoglobin 10.1 g/dL (12-16) L 01/15/24 09:29 Sodium 137.0 mmol/L (131-143) 01/15/24 09:29 Potassium 4.2 mmol/L (3.5-5.0) 01/15/24 09:29 Glucose 177.0 mg/dL (70-115) H 01/15/24 09:29 Ionized Calcium 1.2 mmol/L (1.1-1.4) 01/15/24 09:29 O2 Delivery Device Nc 01/15/24 09:29 O2 Liters/Min 4.0 % 01/15/24 09:29 Payment Manager ID [employer] 01/15/24 09:29 Sodium 138 mmol/L (136-145) 01/21/24 04:26 Potassium 3.5 mmol/L (3.5-5.1) 01/21/24 04:26 Chloride 93 mmol/L (98-107) L 01/21/24 04:26 Carbon Dioxide 38 mmol/L (22-29) H 01/21/24 04:26 Anion Gap 10.5 (5-19) 01/21/24 04:26 BUN 22 mg/dL (8-23) 01/21/24 04:26 Creatinine 0.5 mg/dL (0.5-0.9) 01/21/24 04:26 GFR Calculation Not Reportable 01/21/24 04:26 Glucose 117 mg/dL (65-115) H 01/21/24 04:26 POC Glucose 120 mg/dL (70-110) H 01/21/24 06:18 Calculated Osmolality 290 mOsm/kg (285-295) 01/21/24 04:26 Lactic Acid (Sepsis) 1.9 mmol/L (0.5-2.2) 01/15/24 13:21 Lactate 2.5 mmol/L (0.5-2.2) H 01/15/24 10:14 Calcium 8.7 mg/dL (8.5-10.5) 01/21/24 04:26 Phosphorus 4.0 mg/dL (2.5-4.5) 01/16/24 04:16 Magnesium 1.9 mg/dL (1.7-2.3) 01/16/24 04:16 Total Bilirubin 0.2 mg/dL (0.15-1.2) 01/21/24 04:26 AST 17 U/L (0-32) 01/21/24 04:26 ALT 12 U/L (0-33) 01/21/24 04:26 Alkaline Phosphatase 98 U/L (35-105) 01/21/24 04:26 Troponin T Baseline 39 ng/L (0-10) H 01/15/24 10:14 Troponin T 120 Minute 40.66 ng/L (0-10) H 01/15/24 12:39 Delta Troponin T 1.66 ABS# (0-10) 01/15/24 12:39 Troponin T Hi Sens 6Hr 38.59 ng/L (0-10) H 01/15/24 15:55 Troponin T Hi Sens 6Hr Delta -0.41 ng/L (0-12) L 01/15/24 15:55 C-Reactive Protein 46.7 mg/L (0.0-4.9) H 01/21/24 04:26 C-React Prot High Sens 2.550 mg/dL (0.0-0.3) H 01/19/24 02:40 NT-Pro-B Natriuret Pep 877 pg/mL (0-450) H 01/19/24 02:40 Total Protein 6.3 g/dL (6.6-8.7) L 01/21/24 04:26 Albumin 3.1 g/dL (3.5-5.2) L 01/21/24 04:26 Globulin 3.2 g/dL (1.3-4.6) 01/21/24 04:26 Procalcitonin 0.16 ng/mL (0-0.5) 01/21/24 04:26 Urine Color Yellow (Yellow) 01/15/24 11:03 Urine Appearance Slightly cloudy (CLEAR) 01/15/24 11:03 Urine pH 8 (5-7) H 01/15/24 11:03 Ur Specific [place] 1.010 (1.005-1.030) 01/15/24 11:03 Urine Protein Trace (Negative) 01/15/24 11:03 Urine Glucose (UA) Norm (Normal) 01/15/24 11:03 Urine Ketones 1+ (Negative) H 01/15/24 11:03 Urine Blood 2+ (Negative) H 01/15/24 11:03 Urine Nitrate Negative (Negative) 01/15/24 11:03 Urine Bilirubin Neg (Negative) 01/15/24 11:03 Urine Urobilinogen Norm mg/dL (Negative) 01/15/24 11:03 Ur Leukocyte Esterase 2+ (Negative) H 01/15/24 11:03 Urine RBC None /hpf (0-2) 01/15/24 11:03 Urine WBC 15-25 /hpf (0-5) H 01/15/24 11:03 Ur Squamous Epith Cells 0-4 /hpf (0-5) H 01/15/24 11:03 Amorphous Sediment Not Reportable 01/15/24 11:03 Urine Bacteria 3+ /hpf (NONE) H 01/15/24 11:03 Urine Mucus None /hpf 01/15/24 11:03 Vancomycin Trough 19.7 ug/mL (10-15) H 01/18/24 08:16 Adenovirus (PCR) Not detected (NOT DETECT) 01/15/24 14:11 C. pneumoniae DNA (PCR) Not detected (NOT DETECT) 01/15/24 14:11 Coronavirus 229E (PCR) Not detected (NOT DETECT) 01/15/24 14:11 Human Metapneumovir PCR Not detected (NOT DETECT) 01/15/24 14:11 Influenza A (H1) PCR Not detected (NOT DETECT) 01/15/24 14:11 Influ A (H1/09) PCR Not detected (NOT DETECT) 01/15/24 14:11 Influenza A (H3) PCR Not detected (NOT DETECT) 01/15/24 14:11 Influenza Type A (PCR) Not detected (NOT DETECT) 01/15/24 14:11 Influenza Type B (PCR) Not detected (NOT DETECT) 01/15/24 14:11 M. pneumoniae (PCR) Not detected (NOT DETECT) 01/15/24 14:11 Parainfluenza 1 (PCR) Not detected (NOT DETECT) 01/15/24 14:11 Parainfluenza 2 (PCR) Not detected (NOT DETECT) 01/15/24 14:11 Parainfluenza 3 (PCR) Not detected (NOT DETECT) 01/15/24 14:11 Parainfluenza 4 (PCR) Not detected (NOT DETECT) 01/15/24 14:11 RSV Type A (PCR) Not detected (NOT DETECT) 01/15/24 14:11 RSV Type B (PCR) Not detected (NOT DETECT) 01/15/24 14:11 Entero/Rhino (PCR) Not detected (NOT DETECT) 01/15/24 14:11 SARS-CoV-2 (PCR) Not detected (NOT DETECT) 01/15/24 14:11 Vitals Last Vital Signs Temp 98.7 F 01/21/24 07:36 Pulse 99 01/21/24 08:16 Resp 20 H 01/21/24 08:16 BP 147/73 01/21/24 07:36 Pulse Ox 96 01/21/24 08:16 O2 Del Method Nasal Cannula 01/21/24 08:16 O2 Flow Rate 3 01/21/24 08:16 Discharge Plan Discharge Patient Disposition: Home Condition: Stable Prescriptions: New ciprofloxacin HCl 500 mg Tablet 250 mg PO BID@0900,2100 2 Days Qty: 4 0RF potassium chloride [Klor-Con M20] 20 mEq tablet,ER particles/crystals 20 meq PO DAILY 30 Days Qty: 30 0RF doxycycline hyclate 100 mg tablet 100 mg PO BID 5 Days Qty: 10 0RF Continued ropinirole 1 mg Tablet 1 mg PO DAILY Eliquis 5 mg Tablet 5 mg PO BID Hold Instructions: Resume on 08/30/23. docusate sodium [Stool Softener] 100 mg Tablet 100 mg PO BID ondansetron HCl 4 mg Tablet 4 mg PO Q6H PRN (Reason: Nausea) magnesium oxide 400 mg (241.3 mg magnesium) Tablet 400 mg PO BID Qty: 6 0RF Trelegy Ellipta 100-62.5-25 mcg blister with device 1 inh inhalation DAILY Qty: 60 0RF albuterol sulfate 90 mcg/actuation HFA aerosol inhaler 1 inh inhalation Q6H PRN (Reason: shortness of breath or wheezing) Qty: 8.5 0RF acetaminophen 325 mg Tablet 650 mg PO Q4H PRN (Reason: Pain OR FEVER) hydrocodone-acetaminophen 5-325 mg tablet 1 tab PO Q4H PRN (Reason: Pain) magnesium hydroxide [Milk of Magnesia] 400 mg/5 mL Suspension 30 ml PO DAILY PRN (Reason: Constipation) bisacodyl [Dulcolax (bisacodyl)] 10 mg Suppository 10 mg MS DAILY PRN (Reason: Constipation) Fleet Enema 19-7 gram/118 mL Enema 118 ml MS DAILY PRN (Reason: Constipation) rosuvastatin 20 mg tablet 20 mg PO DAILY duloxetine 60 mg capsule,delayed release(DR/EC) 60 mg PO DAILY Artificial Tears (cmc) 1 % Drops 1 drp OPHTHALMIC (EYE) PRN diltiazem HCl [Cardizem CD] 180 mg capsule,extended release 24hr 180 mg PO DAILY Qty: 30 0RF pantoprazole 40 mg Tablet,Delayed Release (Dr/Ec) 40 mg PO DAILY ferrous sulfate 325 mg (65 mg iron) Tablet 325 mg PO DAILY mupirocin 2 % Ointment 1 applic TOPICAL BID nystatin 100,000 unit/gram Powder 1 applic TOPICAL BID PRN (Reason: SKIN REDNESS) Hibiclens 4 % Liquid See Rx Instructions .ROUTE .COMPLEX Rx Instructions: APPLY TOPICALLY ALL OVER BODY EXCEPT FACE, EVERY 6 DAYS. Humalog KwikPen Insulin 100 unit/mL Insulin Pen See Rx Instructions .ROUTE .COMPLEX Rx Instructions: INJECT 20 UNITS 3 TIMES DAILY PLUS SLIDING SCALE: BS 150-200=0 UNITS, 201- 250=2 UNITS, 251-300=4 UNITS, 301-350=6 UNITS, 351-400=8 UNITS. cholecalciferol (vitamin D3) 1,250 mcg (50,000 unit) Capsule 1 mcg PO Q7D Rx Instructions: ON SUNDAY Voltaren 1 % Gel See Rx Instructions .ROUTE .COMPLEX Rx Instructions: APPLY 4G TOPICALLY TO RIGHT KNEW EVERY 12 HOURS NEEDED FOR PAIN. Changed insulin glargine [Lantus Solostar U-100 Insulin] 100 unit/mL (3 mL) insulin pen 50 unit SUBCUT BID Qty: 15 0RF furosemide [Lasix] 20 mg tablet 40 mg PO QAM 30 Days Qty: 60 0RF Discharge Orders: Discharge Order (Routine); Ordered 01/21/24 Ordered By: Eliot Moore Referrals: Elaine Topete PA [Primary Care Provider] - Discharge Diet: Cardiac Discharge Activity: Resume usual activity Patient Instructions: Opioid Safety Activity Restrictions/Additional Instructions: - For your sacral decubitus ulcer, stage II, continue to keep area clean and dry, keep off of it reposition every 2 hours, consider propping patient up on a pillow to keep of decubitus ulcer, or placing a cone, monitor very closely, high risk of worsening -Recommend patient getting up out of bed into a wheelchair at least 3 times a day -Recommend patient spending time in the chair at least 3 times a day ? For CHF, take Lasix 40 mg daily with potassium replacement therapy with recheck creatinine in 48 hours ? Hemoglobin 8.8, monitor ? Monitor for recurrent UTIs, fluid overload Discharge Attestations Time Spent in Discharge Care*: greater than 30 min Status at Discharge: Cognitive status at discharge: cognitively intact , Behavioral status at discharge: cooperative , Quality Metrics Clinical Quality Measures [ No reported AMI, CVA or VTE this stay] Coding Level of Care Code 03179 Total time (in minutes) for Discharge: 45 Diagnoses Shortness of breath R06.02 COPD (chronic obstructive pulmonary disease) J44.9 Obesity hypoventilation syndrome E66.2 UTI (urinary tract infection) N39.0 History of ESBL E. coli infection Z86.19 History of MRSA infection Z86.14 Heart failure with preserved left ventricular function I50.30 Chronic atrial fibrillation I48.20 On apixaban therapy Z79.01 Hypertension I10 Hyperlipidemia E78.5 Type 2 diabetes mellitus with hyperglycemia, with long-term current use of insulin E11.9 Sacral pressure sore L89.159 Anemia D64.9 Gastroesophageal reflux disease K21.9 Restless leg syndrome G25.81 Long-term current use of opiate analgesic Z79.891 History of Clostridioides difficile colitis Z86.19
[2024-01-21 12:12] LABS: Glucose Point of Care 154 mg/dL (70-110)
[2024-01-21] MEDS: insulin lispro 100 unit/1 mL SUBCUT (12:49)
== END 2024-01-21 13:55 | disposition skilled nursing facility (03) | DRG 641 ==
LOC: ER 14:04 → MEDSURG 16:17
PROVIDERS: Hospitalist; Admitting Provider Internal Medicine; Emergency Provider Family Medicine; PCP Physician Assistant; Visit Provider Family Medicine
DX: E87.70 Fluid overload, unspecified (principal); E66.2 Morbid (severe) obesity with alveolar hypoventilation; Z68.42 Body mass index [BMI] 45.0-49.9, adult; I48.20 Chronic atrial fibrillation, unspecified; I50.32 Chronic diastolic (congestive) heart failure; J44.9 Chronic obstructive pulmonary disease, unspecified; N30.90 Cystitis, unspecified without hematuria; B96.20 Unspecified Escherichia coli [E. coli] as the cause of diseases classified elsewhere; B96.5 Pseudomonas (aeruginosa) (mallei) (pseudomallei) as the cause of diseases classified elsewhere; Z79.01 Long term (current) use of anticoagulants; I11.0 Hypertensive heart disease with heart failure; Z86.14 Personal history of Methicillin resistant Staphylococcus aureus infection; E78.5 Hyperlipidemia, unspecified; E11.9 Type 2 diabetes mellitus without complications; L89.151 Pressure ulcer of sacral region, stage 1; D64.9 Anemia, unspecified; K21.9 Gastro-esophageal reflux disease without esophagitis; G25.81 Restless legs syndrome; Z79.891 Long term (current) use of opiate analgesic; B35.4 Tinea corporis; Z87.891 Personal history of nicotine dependence; Z99.81 Dependence on supplemental oxygen; Z79.4 Long term (current) use of insulin; T17.908A Unspecified foreign body in respiratory tract, part unspecified causing other injury, initial encounter; Y99.9 Unspecified external cause status
CPT/HCPCS: 36415; 36416; 36600; 51702; 71045; 80048; 80051; 80053; 80202; 80503; 81001; 82330; 82805; 82962; 83605; 83735; 83880; 84100; 84145; 84484; 85025; 85651; 86140; 86141; 87040; 87077; 87086; 87186; 87486; 87581; 87633; 92526; 92610; 93005; 94640; 96365; 96367; 96372; 96375; 99285; J0456; J0696; J1815; J1940; J2185; J3370; J7050

== ENCOUNTER 2024-02-11 01:39 | Observation (INO) | payer MEDICARE, MEDICAID, SELFPAY ==
[2024-02-11] VITALS (36 sets, daily range): BP systolic 95–155; BP diastolic 49–81; PULSE 75–106; RESP 16–24; TEMP 36.4–37.1; O2SAT 90–100; BMI 38.6
--- NOTE | 2024-02-11 01:56 | XRR_ITS ---
PROCEDURE INFORMATION: Exam: XR Chest Exam date and time: 02/11/2024 1:59 AM Age: 78 years old Clinical indication: Shortness of breath and wheezing; Prior surgery; Surgery date: 6+ months; Surgery type: Gb; Patient HX: SOB with audible wheezing. History of copd and chf. TECHNIQUE: Imaging protocol: Radiologic exam of the chest. Views: 1 view. COMPARISON: CR XR chest 1V portable [id number] 01/15/2024 9:34 AM FINDINGS: Lungs: There is a background of emphysema pulmonary fibrosis. There is mild prominence and indistinctness of the pulmonary vasculature. There are some hazy and strandy opacities present the lower leyda thoraces bilaterally. These findings could represent pulmonary edema. Strandy opacities in the lung bases could represent atelectasis as well. Pleural spaces: Unremarkable. No pleural effusion. No pneumothorax. Heart/Mediastinum: Unremarkable. No cardiomegaly. Bones/joints: Unremarkable. XR/XR chest 1V portable [id number] IMPRESSION: There is mild prominence and indistinctness of the pulmonary vasculature and hazy and strandy opacity is present in the lower leyda thoraces, findings that may represent pulmonary edema. Strandy opacities in the lung bases could represent atelectasis as well.
--- NOTE | 2024-02-11 02:02 | ED_ITS ---
HPI - SOB/Dyspnea 2 General: Chief Complaint: Shortness of Breath/Dyspnea Stated Complaint: SOB Time Seen by Provider: 02/11/24 01:46 Source: patient and EMS History of Present Illness: HPI Narrative: Patient is a morbidly obese 78-year-old female who resides at a nearby residential has a history of COPD and typically wears 4 L supplemental oxygen at baseline as well as a history of congestive heart failure with preserved ejection fraction and atrial fibrillation who is anticoagulated on Eliquis and presents to the ER today with acute increase shortness of breath and hypoxemia. Her pulse oximetry was in the 70% range per EMS. She was given a DuoNeb treatment and route to the hospital and the dose of terbutaline and IV dexamethasone. Upon arrival here she is on 6 L and maintaining O2 sat of 90%. She states that she hurts all over . PFSH ED 2 PFSH: Medical History Heart failure with preserved left ventricular function History of echocardiogram 08/2023 technically difficult study due to poor ultrasonic windows, grossly normal LV systolic function, grade 1 diastolic dysfunction, mild MR, mild TR, left atrial dilitation Osteoporosis DEXA 09/2023 Right femoral neck T score -4.2 and Z score -0.3; L spine T score 0.2, Z score 0.9, fracture risk 10 yr probability 45%, hip fracture 22.9% ESBL 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 difficile colitis Gastroesophageal reflux disease Hyperlipidemia On apixaban therapy History of ESBL E. coli infection History of MRSA infection History of small bowel obstruction Medically managed to date Diabetes mellitus Coronary artery disease HTN (hypertension), malignant COPD (chronic obstructive pulmonary disease) Morbid obesity Surgical History History of colonoscopy (~2013) History of bladder suspension procedure History of orthopedic surgery Wrist and left leg History of cholecystectomy History of tubal ligation History of appendectomy Family History Other CAD (coronary artery disease) Cancer Social History Smoking and tobacco/nicotine status: former use of tobacco/nicotine Quit status (tobacco/nicotine): has quit using Alcohol intake: never Substance/Drug Use: never Caregiver/support person: Yes (Son ) Housing: [facility]iary Physical Exam 2 Const: COMMON NORMALS: no acute distress, alert and well nourished GENERAL APPEARANCE: cooperative ORIENTATION/CONSCIOUSNESS: Yes awake OTHER: Morbidly obese and hard of hearing 78-year-old female in no acute distress HENMT: COMMON NORMALS: normocephalic and atraumatic HEAD & SCALP: n ormocephalic and atraumatic Eye: COMMON NORMALS: conjunctivae normal CONJUNCTIVA: Yes conjunctivae normal Neck/C-Spine: GENERAL: Yes normal visual inspection Resp: EFFORT & INSPECTION: Yes tachypneic and Yes uses accessory muscles A USCULTATION: wheezes and diminished lung sounds Cardio: COMMON NORMALS: Peripheral pulses 2+ throughout RATE: tachycardic PERIPHERAL PULSES: Peripheral pulses 2+ throughout GI: COMMON NORMALS: Soft to palpation and non-tender PALPATION: Yes Soft to palpation Extremity: COMMON NORMALS: full ROM GENERAL: Yes edema Neuro: COMMON NORMALS: no focal motor deficits SENSORIUM/ORIENTATION: Yes alert Skin: COMMON NORMALS: no rashes or lesions noted GENERAL SKIN EXAM: no rashes or lesions noted Course 2 Vital Signs: Vital signs: Vital Signs Temperature 97.6 F 02/11/24 01:46 Pulse Rate 100 02/11/24 02:56 Respiratory Rate 24 H 02/11/24 02:55 Blood Pressure 110/57 02/11/24 02:55 Pulse Oximetry 100 02/11/24 02:55 Oxygen Delivery Me thod Nasal Cannula 02/11/24 02:55 Oxygen Flow Rate 4 02/11/24 02:55 MDM - SOB/Dyspnea Medical Decision Making Patient is a chronically ill 78-year-old obese female who presents with increasing shortness of breath and hypoxemia. She was given multiple DuoNeb treatments while in the ER and received dexamethasone prior to arrival here. She is anticoagulated. Pulse oximetry has improved with updrafts and she is satting around 91 to 92% on 4 L supplemental oxygen. Chest x-ray is concerning for a right middle lobe and lower lobe pneumonia per my interpretation. Formal read is not back yet. She does have a leukocytosis of 15,000 and elevated lactic acid. COVID test is negative. She was initially given a dose of IV Rocephin and coverage has been broadened to vancomycin and cefepime. She is anemic with a hemoglobin of 6.3. 2 units of typed and crossed blood has been ordered and will be transfused. I spoke with Dr. Nguyen with the hospitalist service who will admit for HCAP and anemia. Lab Data I reviewed the patient's lab results. 02/11/24 02:07 02/11/24 02:07 Labs/Radiology: Laboratory Results WBC 15.78 10^3/uL (3.29-11.43) H 02/11/24 02:07 RBC 2.45 10^6/uL (3.85-5.65) L 02/11/24 02:07 Hgb 6.30 g/dL (11.27-16.99) L* 02/11/24 02:07 Hct 24.2 % (36-47) L 02/11/24 02:07 MCV 98.8 fl (85-98) H 02/11/24 02:07 MCH 25.7 pg (27-33) L 02/11/24 02:07 MCHC 26.0 g/dL (30-55) L 02/11/24 02:07 RDW 15.9 % (12.1-15.1) H 02/11/24 02:07 Plt Count 327 10^3/cmm (157-399) 02/11/24 02:07 MPV 10.7 fL (7.4-10.4) H 02/11/24 02:07 Neut % (Auto) 61.7 % 02/11/24 02:07 Lymph % (Auto) 25.2 % 02/11/24 02:07 Weston % (Auto) 9.1 % 02/11/24 02:07 Eos % (Auto) 1.5 % 02/11/24 02:07 Baso % (Auto) 0.7 % 02/11/24 02:07 Neut # (Auto) 9.73 10^3/uL (1.8-7.7) H 02/11/24 02:07 Lymph # (Auto) 4.0 10^3/uL (0.8-4.8) 02/11/24 02:07 Weston # (Auto) 1.4 10^3/uL (0.2-0.9) H 02/11/24 02:07 Eos # (Auto) 0.2 10^3/uL (0.0-0.8) 02/11/24 02:07 Baso # (Auto) 0.1 10^3/uL (0.0-0.1) 02/11/24 02:07 Nucleated RBC % (auto) 1.6 % 02/11/24 02:07 Nucleated RBCs # 0.3 /100WBC 02/11/24 02:07 PT 19.40 SECONDS (12.1-14.9) H 02/11/24 02:07 INR 1.57 (0.8-1.2) H 02/11/24 02:07 Specimen Type Arterial 02/11/24 02:12 Sample Site Radial, left 02/11/24 02:12 ABG pH 7.38 (7.35-7.45) 02/11/24 02:12 ABG pCO2 58.6 mmHg (35-45) H 02/11/24 02:12 ABG pO2 80.0 mmHg (80.0-100.0) 02/11/24 02:12 ABG HCO3 34.7 mmol/L (22-26) H 02/11/24 02:12 ABG Base Excess 8.7 mmol/L (-2.0-2.0) H 02/11/24 02:12 Monico Test Pos 02/11/24 02:12 Hematocrit 20.2 % (37-47) L 02/11/24 02:12 Hgb O2 Saturation 92.7 % (95-100) L 02/11/24 02:12 Carboxyhemoglobin 3.2 %THgb (0.4-20.1) 02/11/24 02:12 Methemoglobin 1.2 % (0.4-1.5) 02/11/24 02:12 Total Hemoglobin 6.6 g/dL (12-16) L 02/11/24 02:12 O2 Delivery Device Nc 02/11/24 02:12 O2 Liters/Min 4.0 % 02/11/24 02:12 Battery Technician ID [email or web address] 02/11/24 02:12 Sodium 137 mmol/L (136-145) 02/11/24 02:07 Potassium 4.0 mmol/L (3.5-5.1) 02/11/24 02:07 Chloride 94 mmol/L (98-107) L 02/11/24 02:07 Carbon Dioxide 33 mmol/L (22-29) H 02/11/24 02:07 Anion Gap 14.0 (5-19) 02/11/24 02:07 BUN 19 mg/dL (8-23) 02/11/24 02:07 Creatinine 0.7 mg/dL (0.5-0.9) 02/11/24 02:07 GFR Calculation Not Reportable 02/11/24 02:07 Glucose 261 mg/dL (65-115) H 02/11/24 02:07 Calculated Osmolality 295 mOsm/kg (285-295) 02/11/24 02:07 Lactic Acid 2.8 mmol/L (0.5-2.2) H 02/11/24 02:07 Calcium 8.5 mg/dL (8.5-10.5) 02/11/24 02:07 Magnesium 2.0 mg/dL (1.7-2.3) 02/11/24 02:07 Total Bilirubin 0.3 mg/dL (0.15-1.2) 02/11/24 02:07 AST 11 U/L (0-32) 02/11/24 02:07 ALT 10 U/L (0-33) 02/11/24 02:07 Alkaline Phosphatase 136 U/L (35-105) H 02/11/24 02:07 Troponin T Baseline 34 ng/L (0-10) H 02/11/24 02:07 NT-Pro-B Natriuret Pep 808 pg/mL (0-450) H 02/11/24 02:07 Total Protein 6.1 g/dL (6.6-8.7) L 02/11/24 02:07 Albumin 3.4 g/dL (3.5-5.2) L 02/11/24 02:07 Globulin 2.7 g/dL (1.3-4.6) 02/11/24 02:07 SARS-CoV-2 Ag (Rapid) negative (Negative) 02/11/24 02:20 XR interpretation done by ED provider, pending radiology final review ED provider radiology interpretation(s): Concern for right lower lobe and middle lobe consolidation consistent with pneumonia. EKG Data EKG 1: I personally reviewed and interpreted this EKG as follows: EKG Interpretation Date: 02/11/24 EKG interpretation time: 02:10 Interpretation: Sinus rhythm. Significant artifact limits interpretation. No ischemic ST elevation or depressions. Rate of 97 bpm. Normal axis. Discharge Plan Discharge Patient Disposition: Placed in Observation Clinical Impression: On apixaban therapy, Morbid obesity, Pneumonia, Anemia Condition: Stable Prescriptions: No Action ropinirole 1 mg Tablet 1 mg PO DAILY Eliquis 5 mg Tablet 5 mg PO BID Hold Instructions: Resume on 08/30/23. docusate sodium [Stool Softener] 100 mg Tablet 100 mg PO BID ondansetron HCl 4 mg Tablet 4 mg PO Q6H PRN (Reason: Nausea) magnesium oxide 400 mg (241.3 mg magnesium) Tablet 400 mg PO BID Qty: 6 0RF Trelegy Ellipta 100-62.5-25 mcg blister with device 1 inh inhalation DAILY Qty: 60 0RF albuterol sulfate 90 mcg/actuation HFA aerosol inhaler 1 inh inhalation Q6H PRN (Reason: shortness of breath or wheezing) Qty: 8.5 0RF acetaminophen 325 mg Tablet 650 mg PO Q4H PRN (Reason: Pain OR FEVER) hydrocodone-acetaminophen 5-325 mg tablet 1 tab PO Q4H PRN (Reason: Pain) magnesium hydroxide [Milk of Magnesia] 400 mg/5 mL Suspension 30 ml PO DAILY PRN (Reason: Constipation) bisacodyl [Dulcolax (bisacodyl)] 10 mg Suppository 10 mg CA DAILY PRN (Reason: Constipation) Fleet Enema 19-7 gram/118 mL Enema 118 ml CA DAILY PRN (Reason: Constipation) rosuvastatin 20 mg tablet 20 mg PO DAILY duloxetine 60 mg capsule,delayed release(DR/EC) 60 mg PO DAILY Artificial Tears (cmc) 1 % Drops 1 drp OPHTHALMIC (EYE) PRN diltiazem HCl [Cardizem CD] 180 mg capsule,extended release 24hr 180 mg PO DAILY Qty: 30 0RF pantoprazole 40 mg Tablet,Delayed Release (Dr/Ec) 40 mg PO DAILY ferrous sulfate 325 mg (65 mg iron) Tablet 325 mg PO DAILY mupirocin 2 % Ointment 1 applic TOPICAL BID nystatin 100,000 unit/gram Powder 1 applic TOPICAL BID PRN (Reason: SKIN REDNESS) Hibiclens 4 % Liquid See Rx Instructions .ROUTE .COMPLEX Rx Instructions: APPLY TOPICALLY ALL OVER BODY EXCEPT FACE, EVERY 6 DAYS. Humalog KwikPen Insulin 100 unit/mL Insulin Pen See Rx Instructions .ROUTE .COMPLEX Rx Instructions: INJECT 20 UNITS 3 TIMES DAILY PLUS SLIDING SCALE: BS 150-200=0 UNITS, 201- 250=2 UNITS, 251-300=4 UNITS, 301-350=6 UNITS, 351-400=8 UNITS. cholecalciferol (vitamin D3) 1,250 mcg (50,000 unit) Capsule 1 mcg PO Q7D Rx Instructions: ON SUNDAY diclofenac sodium 1 % Gel See Rx Instructions .ROUTE .COMPLEX Rx Instructions: APPLY 4G TOPICALLY TO RIGHT KNEW EVERY 12 HOURS NEEDED FOR PAIN. Lantus Solostar U-100 Insulin 100 unit/mL (3 mL) insulin pen 50 unit SUBCUT BID Qty: 15 0RF Klor-Con M20 20 mEq tablet,ER particles/crystals 20 meq PO DAILY 30 Days Qty: 30 0RF Lasix 20 mg tablet 40 mg PO QAM 30 Days Qty: 60 0RF Referrals: Elaine Topete PA [Primary Care Provider] - Coding Level of Care Code ED Soil Scientist for Gema Hatfield
--- NOTE | 2024-02-11 02:05 | ECG_ITS ---
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 Measurements Intervals [place] Rate: 97 P: 0 [place]: 0 QRS: 13 QRSD: 77 T: 73 QT: 355 QTc: 451 Interpretive Statements Sinus RHYTHM LOW QRS VOLTAGE IN PRECORDIAL LEADS [QRS DEFLECTION < 1.0 mV IN CHEST LEADS] MINIMAL ST DEPRESSION [0.025+ mV ST DEPRESSION] ABNORMAL RHYTHM ECG Compared to ECG 01/15/2024 15:47:26 ST (T wave) deviation now present First degree AV block no longer present Myocardial infarct finding no longer present Electronically Signed On 02-11-2024 14:10:11 CDT by Emerson Mcdermott M.D. [id number]
[2024-02-11] MEDS: ipratropium-albuterol 3 mL Neb INHALATION ×8 (02:06→20:08)
[2024-02-11 02:15] LABS: Basophils # 0.1 10^3/uL (0.0-0.1); Basophils % 0.7 %; Eosinophils # 0.2 10^3/uL (0.0-0.8); Eosinophils % 1.5 %; Hematocrit 24.2 % (36-47); Lymphocytes % 25.2 %; Mean Corpuscular Hemoglobin 25.7 pg (27-33); Mean Corpuscular Volume 98.8 fl (85-98); Mean Platelet Volume 10.7 fL (7.4-10.4); Monocytes # 1.4 10^3/uL (0.2-0.9); Monocytes % 9.1 %; Neutrophils # 9.73 10^3/uL (1.8-7.7); Neutrophils % 61.7 %; Nucleated Red Blood Cells # 0.3 /100WBC; Nucleated Red Blood Cells % 1.6 %; Platelet Count 327 10^3/cmm (157-399); Red Blood Count 2.45 10^6/uL (3.85-5.65); Red Cell Distribution Width 15.9 % (12.1-15.1); White Blood Count 15.78 10^3/uL (3.29-11.43)
[2024-02-11 02:22] LABS: ABG PCO2 58.6 mmHg (35-45); ABG PH Result 7.38 (7.35-7.45); Arterial Blood Gas Hematocrit 20.2 % (37-47); Base Excess ABG 8.7 mmol/L (-2.0-2.0); Blood Gas Allen Test Pos; Blood Gas Sample Site Radial, left; Blood Gas Sample Type Arterial; Carboxyhemoglobin 3.2 %THgb (0.4-20.1); HCO3 ABG 34.7 mmol/L (22-26); HGB O2 Sat 92.7 % (95-100); Methemoglobin 1.2 % (0.4-1.5); Oxygen Device NC; Total Hemoglobin 6.6 g/dL (12-16)
[2024-02-11 02:30] LABS: INR 1.57 (0.8-1.2)
[2024-02-11 02:33] LABS: Troponin(5th) Baseline 34 ng/L (0-10)
[2024-02-11 02:35] LABS: Lactic Sepsis W/Reflex 2.8 mmol/L (0.5-2.2)
[2024-02-11 02:41] LABS: Alanine Aminotransferase 10 U/L (0-33); Albumin Level 3.4 g/dL (3.5-5.2); Alkaline Phosphatase 136 U/L (35-105); Aspartate Amino Transferase 11 U/L (0-32); Blood Urea Nitrogen 19 mg/dL (8-23); Calcium 8.5 mg/dL (8.5-10.5); Carbon Dioxide 33 mmol/L (22-29); Chloride 94 mmol/L (98-107); Creatinine Clr Calc Pharmacy 65.2049; Globulin 2.7 g/dL (1.3-4.6); Glucose 261 mg/dL (65-115); Osmolality Calculated 295 mOsm/kg (285-295); Slide Review Slide Review Perform; Sodium 137 mmol/L (136-145); Total Bilirubin 0.3 mg/dL (0.15-1.2); Total Protein 6.1 g/dL (6.6-8.7)
[2024-02-11 02:44] LABS: SARS Covid-2 Antigen negative (Negative)
[2024-02-11 02:49] LABS: NT Pro B Type Natriuretic Pept 808 pg/mL (0-450)
[2024-02-11] MEDS: cefTRIAXone 2,000 mg SDV 2000 MG IVP (02:52)
--- NOTE | 2024-02-11 03:16 | PM.HP ---
Providers/Chief Complaint Primary Care Provider: Elaine Topete Chief Complaint: SOB History of Present Illness Purvi Sparks is a 78 year old female with a past medical history significant for COPD with chronic hypoxic respiratory failure on 4 L baseline, heart failure with preserved ejection fraction, chronic atrial fibrillation on DOAC, chronic pain on opiates, restless leg syndrome, hyperlipidemia, coronary artery disease, hypertension, morbid obesity, type 2 diabetes mellitus, and multiple prior bacterial infections who presents to the emergency department from nursing facility with shortness of breath. Patient reports onset about 3 to 4 days ago with progressively worsening symptoms. She was reportedly more hypoxic with SpO2 in the 70s on her home oxygen at the facility per EMS report. She endorses associated cough, wheezing, generalized malaise and fatigue. Exertion worsens symptoms. Rest improves. Endorses diffuse pains. Denies other new complaints. Daughter is bedside. She reports a recent COVID-19 outbreak at the facility. Patient's rapid COVID testing is negative in the emergency department. In the ED, patient found to be tachycardic with soft blood pressure. Labs revealed persistent leukocytosis, anemia with hemoglobin of 6.3, and elevated proBNP to 808. ABG consistent with chronic hypercapnia. Review of Systems Narrative: A complete review of systems was obtained and is negative except as stated in HPI. Medications/Allergies Home Medications Medication Instructions Recorded Confirmed Last Taken Type apixaban 5 mg tablet (Eliquis) 5 mg PO BID 07/18/19 01/15/24 01/15/24 History ropinirole 1 mg tablet 1 mg PO DAILY 07/18/19 01/15/24 01/14/24 History docusate sodium 100 mg tablet 100 mg PO BID 01/06/20 01/15/24 01/15/24 History (Stool Softener) ondansetron HCl 4 mg tablet 4 mg PO Q6H PRN Nausea 01/25/23 01/15/24 Unknown History albuterol sulfate 90 mcg/actuation 1 inh inhalation Q6H PRN shortness 02/02/23 01/15/24 01/14/24 Rx aerosol inhaler of breath or wheezing #8.5 grams fluticasone fur. 100 mcg-umeclid 1 inh inhalation DAILY #60 ea 02/02/23 01/15/24 01/15/24 Rx 62.5 mcg-vilant 25 mcg inhalat.powder (Trelegy Ellipta) magnesium oxide 400 mg (241.3 mg 400 mg PO BID #6 tabs 02/02/23 01/15/24 01/15/24 Rx magnesium) tablet acetaminophen 325 mg tablet 650 mg PO Q4H PRN Pain OR FEVER 08/15/23 01/15/24 01/11/24 History bisacodyl 10 mg rectal suppository 10 mg WI DAILY PRN Constipation 08/15/23 01/15/24 Unknown History (Dulcolax (bisacodyl)) carboxymethylcellulose sodium 1 % 1 drp ophthalmic (eye) PRN DRY EYES 08/15/23 01/15/24 Unknown History eye drops (Artificial Tears (carboxymethylcellulose)) duloxetine 60 mg capsule,delayed 60 mg PO DAILY 08/15/23 01/15/24 01/15/24 History release hydrocodone 5 mg-acetaminophen 325 1 tab PO Q4H PRN Pain 08/15/23 01/15/24 01/11/24 History mg tablet magnesium hydroxide 400 mg/5 mL 30 ml PO DAILY PRN Constipation 08/15/23 01/15/24 Unknown History oral suspension (Milk of Magnesia) rosuvastatin 20 mg tablet 20 mg PO DAILY 08/15/23 01/15/24 01/14/24 History sodium phosphates 19 gram-7 118 ml WI DAILY PRN Constipation 08/15/23 01/15/24 Unknown History gram/118 mL enema (Fleet Enema) diltiazem HCl 180 mg 180 mg PO DAILY #30 caps 08/16/23 01/15/24 01/15/24 Rx capsule,extended release 24 hr (Cardizem CD) chlorhexidine gluconate 4 % See Rx Instructions .Route .COMPLEX 01/15/24 01/15/24 01/10/24 History topical liquid (Hibiclens) cholecalciferol (vitamin D3) 1,250 1 mcg PO Q7D 01/15/24 01/15/24 01/10/24 History mcg (50,000 unit) capsule diclofenac sodium 1 % topical gel See Rx Instructions .Route .COMPLEX 01/15/24 01/15/24 Unknown History ferrous sulfate 325 mg (65 mg 325 mg PO DAILY 01/15/24 01/15/24 01/15/24 History iron) tablet insulin lispro 100 unit/mL See Rx Instructions .Route .COMPLEX 01/15/24 01/15/24 01/15/24 History subcutaneous pen (Humalog KwikPen (U-100) Insulin) mupirocin 2 % topical ointment 1 applic topical BID 01/15/24 01/15/24 Unknown History nystatin 100,000 unit/gram topical 1 applic topical BID PRN SKIN 01/15/24 01/15/24 Unknown History powder REDNESS pantoprazole 40 mg tablet,delayed 40 mg PO DAILY 01/15/24 01/15/24 01/15/24 History release furosemide 20 mg tablet (Lasix) 40 mg (2 x 20 mg) PO QAM 30 days 01/21/24 01/15/24 01/15/24 Rx #60 tabs insulin glargine 100 unit/mL (3 50 unit (0.5 mL) SUBCUT BID #15 mL 01/21/24 01/15/24 01/15/24 Rx mL) subcutaneous pen (Lantus Solostar U-100 Insulin) potassium chloride 20 mEq 20 meq PO DAILY 30 days #30 tabs 01/21/24 Unknown Rx tablet,extended release(part/cryst) (Klor-Con M) Allergies Allergy/AdvReac Type Severity Reaction Status Date / Time morphine Allergy ALGY-Rash Verified 01/15/24 09:30 quinine Allergy ALGY-Rash Verified 01/15/24 09:30 Sulfa (Sulfonamide Allergy ALGY-Rash Verified 01/15/24 09:30 Antibiotics) Penicillins AdvReac ALGY-Rash Verified 01/15/24 09:30 PFSH Acute PFSH: Medical History Heart failure with preserved left ventricular function History of echocardiogram 08/2023 technically difficult study due to poor ultrasonic windows, grossly normal LV systolic function, grade 1 diastolic dysfunction, mild MR, mild TR, left atrial dilitation Osteoporosis DEXA 09/2023 Right femoral neck T score -4.2 and Z score -0.3; L spine T score 0.2, Z score 0.9, fracture risk 10 yr probability 45%, hip fracture 22.9% ESBL 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 difficile colitis Gastroesophageal reflux disease Hyperlipidemia On apixaban therapy History of ESBL E. coli infection History of MRSA infection History of small bowel obstruction Medically managed to date Diabetes mellitus Coronary artery disease HTN (hypertension), malignant COPD (chronic obstructive pulmonary disease) Morbid obesity Surgical History History of colonoscopy (~2013) History of bladder suspension procedure History of orthopedic surgery Wrist and left leg History of cholecystectomy History of tubal ligation History of appendectomy Family History Other CAD (coronary artery disease) Cancer Social History Smoking and tobacco/nicotine status: former use of tobacco/nicotine Quit status (tobacco/nicotine): has quit using Alcohol intake: never Substance/Drug Use: never Caregiver/support person: Yes (Son ) Housing: Longterm Vitals/I&O/Wt Last Vital Signs Temp 97.6 F 02/11/24 01:46 Pulse 100 02/11/24 02:56 Resp 24 H 02/11/24 02:55 BP 110/57 02/11/24 02:55 Pulse Ox 100 02/11/24 02:55 O2 Del Method Nasal Cannula 02/11/24 02:55 O2 Flow Rate 4 02/11/24 02:55 Weight last 48 hrs Weight 102.058 kg Physical Exam Narrative: General: Patient is awake. Appears chronically ill. Head: Normocephalic. Atraumatic. EOM intact. Hard of hearing. Neck: JVD difficult to assess due to neck circumference. Cardiovascular: Borderline tachycardic. No gallops. No murmurs. No peripheral edema. Lungs: Breath sounds are distant. Diffuse wheezing throughout bilateral lung guadalupe. Increased work of breathing when speaking. On supplemental oxygen support. Skin: No jaundice. No rashes. Sacral pressure injury only partially visualized. Abdomen: Normal bowel sounds, abdomen soft and nontender. Genito Urinary: Genital exam not performed since complaints not related. Rectal: Rectal exam not performed since no symptoms indicated blood loss. Extremities: No cyanosis or clubbing. Musculoskeletal: No o swollen or erythematous joints. Neurological: Moves all 4 extremities. No myoclonus. Data 02/11/24 02:07 02/11/24 02:07 A&P Assessment and plan (1) COPD (chronic obstructive pulmonary disease): Acute COPD exacerbation with chronic hypoxic respiratory failure Received dexamethasone and route Start systemic steroids with Solu-Medrol Start Pulmicort nebs Scheduled DuoNebs Check procalcitonin Blood cultures Supplemental oxygen support Encourage pulmonary toilet Supportive care (2) Leukocytosis: Patient with persistent leukocytosis Panculture Prior microbiology reviewed, patient is growing multiple organisms this year Chest x-ray reviewed, radiology read pending, possible infiltrates noted on right Start broad-spectrum antibiotics with cefepime and vancomycin (3) Anemia: Hemoglobin 6.3 2 units packed red blood cells ordered by ED Plan for Lasix in between transfusions Monitor for signs and symptoms of bleeding Continue home iron supplement Qualifiers: Anemia type: unspecified type Qualified Code(s): D64.9 - Anemia, unspecified (4) Congestive heart failure: Chronic heart failure with preserved ejection fraction Patient is high risk for exacerbation Monitor fluid status, especially with infusion to packed red blood cells Diuresis in between transfusion as above Continue home Lasix Strict I's and O's Daily weights (5) Sacral pressure sore: Sacral pressure injury present on admission Routine wound care (6) Chronic atrial fibrillation: Continue home apixaban Continue Cardizem for rate control (7) Coronary artery disease: Continue statin (8) Type 2 diabetes mellitus: Continue Lantus, reduced to 40 units twice daily (home dose 50 units twice daily) Continue scheduled lispro 16 units TIDAC (home dose 20 units TIDAC) Start high-dose sliding scale insulin correction Avoid hypoglycemia (9) Morbid obesity: Patient would benefit from weight loss (10) Gastroesophageal reflux disease: Continue formulary PPI (11) Restless leg syndrome: Continue Requip Plan DVT prophylaxis: Apixaban Attestations Medical Necessity Statement*: Patient presents with shortness of breath, found to have acute COPD exacerbation with persistent leukocytosis concerning for underlying infection with expected hospitalization not to cross 2 midnights for steroids, breathing treatments, blood transfusions, surveillance of cultures, antibiotics, and supportive care. Coding Level of Care Code Acute Code for [facility] Diagnoses COPD (chronic obstructive pulmonary disease) J44.9 Leukocytosis D72.829 Anemia D64.9 Anemia type: unspecified type Congestive heart failure I50.9 Sacral pressure sore L89.159 Chronic atrial fibrillation I48.20 Coronary artery disease I25.10 Type 2 diabetes mellitus E11.9 Morbid obesity E66.01 Gastroesophageal reflux disease K21.9 Restless leg syndrome G25.81
[2024-02-11] MEDS: FUROsemide 10 mg/mL SDV 4mL 40 MG IVP (03:58)
[2024-02-11] MEDS: vancomycin 2,000 MG/400 ML PIGGYBACK 200 MG IV (03:59)
[2024-02-11 04:00] LABS: Reflex Lactate Order REFLEX LACTIC ORDERD
[2024-02-11] MEDS: cefepime 2,000 mg SDV 2000 MG IV ×2 (04:47→12:42)
[2024-02-11] MEDS: methylPREDNISolone sod succ 40 mg/mL INJ IVP ×4 (04:48→21:26)
[2024-02-11] MEDS: sodium chloride 0.9% (plus) 50 ML 100 ML (04:48)
--- NOTE | 2024-02-11 04:50 | ECG_ITS ---
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 Measurements Intervals [place] Rate: 95 P: 101 DE: 205 QRS: 9 QRSD: 77 T: 73 QT: 358 QTc: 451 Interpretive Statements SINUS RHYTHM LOW QRS VOLTAGE IN PRECORDIAL LEADS [QRS DEFLECTION < 1.0 mV IN CHEST LEADS] MODERATE ST DEPRESSION [0.05+ mV ST DEPRESSION] Compared to ECG 02/11/2024 02:05:23 Supraventricular rhythm no longer present ST (T wave) deviation still present Electronically Signed On 02-11-2024 14:16:41 CDT by Emerson Mcdermott M.D. [id number]
[2024-02-11] MEDS: diphenhydrAMINE 25 mg Capsule PO (05:12)
[2024-02-11] MEDS: acetaminophen 325 mg Tablet 650 MG PO (05:12)
[2024-02-11 06:30] LABS: Glucose Point of Care 364 mg/dL (70-110)
[2024-02-11] MEDS: insulin lispro 100 unit/1 mL 15 UNIT SUBCUT ×3 (06:31→17:37)
[2024-02-11 06:42] LABS: Procalcitonin 0.26 ng/mL (0-0.5)
[2024-02-11] MEDS: budesonide 0.5 mg/2 mL Neb INHALATION ×2 (07:35→20:09)
--- NOTE | 2024-02-11 07:43 | ECG_ITS ---
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 Measurements Intervals [place] Rate: 89 P: 48 AL: 209 QRS: 15 QRSD: 82 T: 76 QT: 371 QTc: 452 Interpretive Statements SINUS RHYTHM LOW QRS VOLTAGE IN PRECORDIAL LEADS [QRS DEFLECTION < 1.0 mV IN CHEST LEADS] POSSIBLE ANTERIOR MYOCARDIAL INFARCTION , PROBABLY OLD [30 ms Q WAVE IN V3/V4, OR R < 0.2 mV IN V4] Compared to ECG 02/11/2024 04:50:46 Myocardial infarct finding now present ST (T wave) deviation no longer present Electronically Signed On 02-11-2024 14:16:55 CDT by Emerson Mcdermott M.D. [id number]
[2024-02-11 09:44] LABS: Troponin 5 6HR 28.57 ng/L (0-10)
[2024-02-11 09:45] LABS: Troponin 5 6HR Delta -5.43 ng/L (0-12)
[2024-02-11] MEDS: apixaban 5 mg Tablet PO ×2 (09:49→17:38)
[2024-02-11] MEDS: atorvastatin 40 mg Tablet 80 MG PO (09:49)
[2024-02-11] MEDS: dilTIAZem ER (24HR) 180 mg Capsule PO (09:49)
[2024-02-11] MEDS: magnesium oxide 400 mg tablet PO ×2 (09:49→17:37)
[2024-02-11] MEDS: ropinirole 1 mg Tablet PO (09:49)
[2024-02-11] MEDS: ferrous sulfate EC 325 mg Tablet PO (09:49)
[2024-02-11] MEDS: docusate sodium 100 mg Capsule PO ×2 (09:49→17:38)
[2024-02-11] MEDS: duloxetine 60 mg Capsule PO (09:50)
[2024-02-11] MEDS: FUROsemide 20 mg Tablet 40 MG PO (09:50)
[2024-02-11] MEDS: pantoprazole DR 40 mg Tablet PO (09:50)
[2024-02-11] MEDS: insulin lispro 100 unit/1 mL SUBCUT ×4 (10:04→21:26)
[2024-02-11] MEDS: insulin glargine 100 units/1 mL 40 UNIT SUBCUT ×2 (10:05→17:37)
[2024-02-11 11:27] LABS: Glucose Point of Care 389 mg/dL (70-110)
[2024-02-11] MEDS: mupirocin oint 22 gm 1 APPLIC TOPICAL ×2 (11:44→17:38)
[2024-02-11 14:21] LABS: Charge for UA Resulting for Rev
[2024-02-11] MEDS: meropenem 1,000 mg SDV 1000 MG IVP ×2 (15:45→22:58)
[2024-02-11] MEDS: pantoprazole 40 mg SDV IVP (15:45)
[2024-02-11 15:46] LABS: Bilirubin Urine Negative (Negative); Blood Urine Trace (Negative); Glucose Urine UA 1+ (Normal); Ketones Urine Negative (Negative); Leukocyte Esterase Urine Negative (Negative); Nitrate Urine Negative (Negative); Protein Urine Negative (Negative); Specific Gravity, Urine 1.014 (1.005-1.030); Urine Appearance Clear (CLEAR); Urine Color Yellow (Yellow); Urobilinogen Urine 0.2 mg/dL (Negative)
[2024-02-11 15:51] LABS: Bacteria Urine None Seen /hpf; Hyaline Casts Urine 20.67 /lpf; RBC Urine 0-2 /hpf (0-2); Squamous Epithelial Cell Urine 0-5 /hpf (0-5)
[2024-02-11 16:52] LABS: Glucose Point of Care 298 mg/dL (70-110)
[2024-02-11 19:08] LABS: Hematocrit 31.1 % (36-47)
[2024-02-11 21:07] LABS: Glucose Point of Care 333 mg/dL (70-110)
[2024-02-11] MEDS: vancomycin 1,500 MG/300 ML PIGGYBACK 200 MG IV (21:26)
[2024-02-12] VITALS (16 sets, daily range): BP systolic 112–153; BP diastolic 58–71; PULSE 82–104; RESP 17–20; TEMP 36.3–37; O2SAT 92–98
[2024-02-12] MEDS: ondansetron 2 mg/ML SDV 2 mL 4 MG IVP (00:32)
[2024-02-12] MEDS: ipratropium-albuterol 3 mL Neb INHALATION ×6 (00:35→23:58)
[2024-02-12] MEDS: methylPREDNISolone sod succ 40 mg/mL INJ IVP ×3 (03:02→17:07)
[2024-02-12] MEDS: pantoprazole 40 mg SDV IVP ×2 (03:02→15:34)
[2024-02-12 03:03] LABS: Basophils % 0.2 %; Hematocrit 27.7 % (36-47); Lymphocytes # 0.8 10^3/uL (0.8-4.8); Lymphocytes % 6.5 %; Mean Corpuscular HGB Conc 28.5 g/dL (30-55); Mean Corpuscular Hemoglobin 26.8 pg (27-33); Mean Corpuscular Volume 93.9 fl (85-98); Mean Platelet Volume 10.8 fL (7.4-10.4); Monocytes # 0.6 10^3/uL (0.2-0.9); Monocytes % 4.5 %; Neutrophils # 11.21 10^3/uL (1.8-7.7); Neutrophils % 87.1 %; Nucleated Red Blood Cells # 0.1 /100WBC; Nucleated Red Blood Cells % 0.5 %; Platelet Count 281 10^3/cmm (157-399); Red Blood Count 2.95 10^6/uL (3.85-5.65); Red Cell Distribution Width 16.1 % (12.1-15.1); White Blood Count 12.86 10^3/uL (3.29-11.43)
[2024-02-12 03:36] LABS: Magnesium 2.2 mg/dL (1.7-2.3); Phosphorus 2.9 mg/dL (2.5-4.5)
[2024-02-12 03:37] LABS: Alanine Aminotransferase 10 U/L (0-33); Albumin Level 3.3 g/dL (3.5-5.2); Alkaline Phosphatase 104 U/L (35-105); Anion Gap 15.3 (5-19); Aspartate Amino Transferase 11 U/L (0-32); Blood Urea Nitrogen 21 mg/dL (8-23); Calcium 8.3 mg/dL (8.5-10.5); Carbon Dioxide 32 mmol/L (22-29); Chloride 91 mmol/L (98-107); Creatinine Clr Calc Pharmacy 72.1129; Globulin 2.8 g/dL (1.3-4.6); Glucose 267 mg/dL (65-115); Osmolality Calculated 290 mOsm/kg (285-295); Potassium 4.3 mmol/L (3.5-5.1); Sodium 134 mmol/L (136-145); Total Bilirubin 0.3 mg/dL (0.15-1.2); Total Protein 6.1 g/dL (6.6-8.7)
[2024-02-12 06:20] LABS: Glucose Point of Care 287 mg/dL (70-110)
[2024-02-12] MEDS: FUROsemide 20 mg Tablet 40 MG PO (06:21)
[2024-02-12] MEDS: meropenem 1,000 mg SDV 1000 MG IVP (06:21)
[2024-02-12] MEDS: insulin lispro 100 unit/1 mL 15 UNIT SUBCUT ×3 (06:21→17:06)
[2024-02-12] MEDS: budesonide 0.5 mg/2 mL Neb INHALATION ×2 (07:27→20:24)
[2024-02-12] MEDS: ferrous sulfate EC 325 mg Tablet PO ×2 (08:37→17:05)
[2024-02-12] MEDS: dilTIAZem ER (24HR) 180 mg Capsule PO (08:37)
[2024-02-12] MEDS: ropinirole 1 mg Tablet PO (08:37)
[2024-02-12] MEDS: duloxetine 60 mg Capsule PO (08:37)
[2024-02-12] MEDS: atorvastatin 40 mg Tablet 80 MG PO (08:38)
[2024-02-12] MEDS: magnesium oxide 400 mg tablet PO ×2 (08:38→17:05)
[2024-02-12] MEDS: docusate sodium 100 mg Capsule PO ×2 (08:38→17:05)
[2024-02-12] MEDS: insulin lispro 100 unit/1 mL SUBCUT ×4 (08:38→20:20)
[2024-02-12] MEDS: insulin glargine 100 units/1 mL 40 UNIT SUBCUT ×2 (08:38→17:06)
[2024-02-12] MEDS: apixaban 5 mg Tablet PO ×2 (08:38→17:06)
[2024-02-12] MEDS: mupirocin oint 22 gm 1 APPLIC TOPICAL ×2 (08:39→17:07)
--- NOTE | 2024-02-12 09:05 | PC.CHAP ---
Pastoral Care Encounter/Spiritual Assessment Type of Contact [] Declined structures technician visit [] Patient/Family/Request visit [] Outpatient visit [] Follow-up visit [] Physician referral [] Code/Alert [x] Routine visit [] Staff referral [] Actively dying [] Patient sleeping [] Family support [] [] Out of room [] Palliative care [] [] Receiving care in room [] Pre-surgical visit [] Trauma [] Long length of stay [] ICU visit [] Other: Relational/Emotional Strength [x] Patient feels connected with others/family/visitors/staff [] Distress [] Loneliness/isolation [] Abandonment Spirituality of Patient [x] Person of Chiqui [] Attends Anabaptist of their Chiqui [x] Believes in Prayer [] Reads Bible or Jew materials [] There are Spiritual issues to be addressed Slot Operations Manager Interventions [x] Prayer [x] Active listening [] Non-anxious presence [x] Spiritual/emotional support [] Crisis/trauma care [] Spiritual counseling [] Bereavement support [] Provided bereavement packet [] Provided Bible/devotional materials [] Provided toy/stuffed animal, coloring book to patient or family member [] Provided Communion [] Anointing/Elk [] Salvation [x] Completed spiritual assessment [] Other: Impact on Illness or Injury [] Angry [] Fearful [] Anxious [] Often cries [] Exhaustion [] Unable to work [] Unable to attend advent [] Unable to walk/stand [] Unable to read [] Unable to drive [] Unable to eat/drink [] Unable to sleep [] Unable to be with family [] Patient intubated [] Other: Summary Time spent with patient 5 min
[2024-02-12 10:34] LABS: Glucose Point of Care 367 mg/dL (70-110)
[2024-02-12] MEDS: acetaminophen 325 mg Tablet 650 MG PO (12:03)
--- NOTE | 2024-02-12 13:49 | PHA.VACGOAL ---
Vancomycin Goal - Goal Vancomycin Goal:: 15-20 mg/L Vancomycin Indication:: Other - Therapy Current therapy:: Meropenem Day of therpy:: Day 2 Actual body weight (kg): 273 lb 1 oz [place] body weight: 54.7 KG Dosing weight (kg): 82.3 - Data Labs: WBC 12.86 10^3/uL (3.29-11.43) H 02/12/24 02:32 RBC 2.95 10^6/uL (3.85-5.65) L 02/12/24 02:32 Hgb 7.90 g/dL (11.27-16.99) L 02/12/24 02:32 Hct 27.7 % (36-47) L 02/12/24 02:32 MCV 93.9 fl (85-98) 02/12/24 02:32 MCH 26.8 pg (27-33) L 02/12/24 02:32 MCHC 28.5 g/dL (30-55) L D 02/12/24 02:32 RDW 16.1 % (12.1-15.1) H 02/12/24 02:32 Sodium 134 mmol/L (136-145) L 02/12/24 02:32 Potassium 4.3 mmol/L (3.5-5.1) 02/12/24 02:32 Chloride 91 mmol/L (98-107) L 02/12/24 02:32 Carbon Dioxide 32 mmol/L (22-29) H 02/12/24 02:32 Anion Gap 15.3 (5-19) 02/12/24 02:32 BUN 21 mg/dL (8-23) 02/12/24 02:32 Creatinine 0.7 mg/dL (0.5-0.9) 02/12/24 02:32 GFR Calculation Not Reportable 02/12/24 02:32 Last dialysis session:: N/A Treatment plan:: continue Regimen:: INITIAL DOSE 1500 MG Q18H Follow up:: TROUGH TO BE DRAWN PRIOR TO 4TH DOSE
--- NOTE | 2024-02-12 15:33 | PM.PN ---
Subjective Subjective: No acute events overnight. Seen with daughter at bedside. Patient states she is feeling a lot better. Would like to be discharged back to the group home at the earliest. Denies any abdominal pain, difficulty in breathing. Back to baseline oxygen supplementation of 4 L. Denies any diarrhea or bleeding. Vitals/I&O/Wt Last Vital Signs Temp 97.6 F 02/12/24 15:26 Pulse 93 02/12/24 15:26 Resp 20 H 02/12/24 15:26 BP 121/63 02/12/24 15:26 Pulse Ox 92 02/12/24 15:26 O2 Del Method Nasal Cannula 02/12/24 15:26 O2 Flow Rate 4 02/12/24 15:25 02/12/24 02/12/24 02/12/24 06:59 14:59 22:59 Intake Total 300 / 1840 600 / 600 Output Total 500 / 500 1150 / 1150 Balance -200 / 1340 -550 / -550 Weight last 48 hrs Weight 123.859 kg Weight 121.563 kg Weight 102.058 kg Physical Exam Narrative: General: Patient is awake. Appears chronically ill. Head: Normocephalic. Atraumatic. EOM intact. Hard of hearing. Neck: JVD difficult to assess due to neck circumference. Cardiovascular: Borderline tachycardic. No gallops. No murmurs. No peripheral edema. Lungs: Breath sounds are distant. Diffuse wheezing throughout bilateral lung guadalupe. Increased work of breathing when speaking. On supplemental oxygen support. Skin: No jaundice. No rashes. Sacral pressure injury only partially visualized. Abdomen: Normal bowel sounds, abdomen soft and nontender. Genito Urinary: Genital exam not performed since complaints not related. Rectal: Rectal exam not performed since no symptoms indicated blood loss. Extremities: No cyanosis or clubbing. Musculoskeletal: No o swollen or erythematous joints. Neurological: Moves all 4 extremities. No myoclonus. Urinary Catheter Management: Curry: Cath Placed During This Visit: yes Reason for Continuing Indwelling Catheter: Assist Healing of Perineal & Sacral Wounds- Incontinent Patients Urinary Catheter Date of Insertion: 02/11/24 Urinary Catheter Time of Insertion: 13:52 Data 02/12/24 02:32 02/12/24 02:32 Micro: Microbiology 02/11/24 03:12 Blood Culture - Preliminary Blood NEGATIVE TO DATE 02/11/24 03:10 Blood Culture - Preliminary Blood NEGATIVE TO DATE A&P Assessment and plan (1) COPD (chronic obstructive pulmonary disease): Acute COPD exacerbation with chronic hypoxic respiratory failure Received dexamethasone and route Start systemic steroids with Solu-Medrol Start Pulmicort nebs Scheduled DuoNebs Check procalcitonin Blood cultures Supplemental oxygen support Encourage pulmonary toilet Supportive care (2) Leukocytosis: Patient with persistent leukocytosis Panculture Prior microbiology reviewed, patient is growing multiple organisms this year Chest x-ray reviewed, radiology read pending, possible infiltrates noted on right Start broad-spectrum antibiotics with cefepime and vancomycin (3) Anemia: Hemoglobin 6.3 2 units packed red blood cells ordered by ED Plan for Lasix in between transfusions Monitor for signs and symptoms of bleeding Continue home iron supplement Qualifiers: Anemia type: unspecified type Qualified Code(s): D64.9 - Anemia, unspecified (4) Congestive heart failure: Chronic heart failure with preserved ejection fraction Patient is high risk for exacerbation Monitor fluid status, especially with infusion to packed red blood cells Diuresis in between transfusion as above Continue home Lasix Strict I's and O's Daily weights (5) Sacral pressure sore: Sacral pressure injury present on admission Routine wound care (6) Chronic atrial fibrillation: Continue home apixaban Continue Cardizem for rate control (7) Coronary artery disease: Continue statin (8) Type 2 diabetes mellitus: Continue Lantus, reduced to 40 units twice daily (home dose 50 units twice daily) Continue scheduled lispro 16 units TIDAC (home dose 20 units TIDAC) Start high-dose sliding scale insulin correction Avoid hypoglycemia (9) Morbid obesity: Patient would benefit from weight loss (10) Gastroesophageal reflux disease: Continue formulary PPI (11) Restless leg syndrome: Continue Requip Plan DVT prophylaxis: Apixaban Plan for the day: Patient difficulty in breathing on admission was most likely in the setting of acute anemia. Has resolved after 2 unit of blood transfusion. Patient back to baseline oxygen supplementation of 4 L. Stop antibiotics for now. Follow-up cultures. Wean Solu-Medrol to 40 mg every 12 hourly. Continue with home dose of Lasix and nebulization for now. Repeat hemoglobin and hematocrit in the evening. Patient did have stool for occult blood positive back in August. Continue with Protonix twice daily. Add Carafate before meals and at bedtime. Cannot rule out slow GI bleed. Patient is on Eliquis. Family for now would want to continue. Appreciate B12 folate levels done in August. In past patient did have iron deficiency anemia. Will start on oral iron supplementation. Repeat B12 levels. Blood sugars elevated most likely in setting of IV steroids. Continue with current dose of Lantus and ACHS sliding scale. Steroids being weaned down today. Attestations Medical Necessity Statement*: Requires further hospitalization for management of hypoxia in setting of COPD exacerbation, CHF in setting of acute anemia requiring blood transfusion Diagnoses COPD (chronic obstructive pulmonary disease) J44.9 Leukocytosis D72.829 Anemia D64.9 Anemia type: unspecified type Congestive heart failure I50.9 Sacral pressure sore L89.159 Chronic atrial fibrillation I48.20 Coronary artery disease I25.10 Type 2 diabetes mellitus E11.9 Morbid obesity E66.01 Gastroesophageal reflux disease K21.9 Restless leg syndrome G25.81
[2024-02-12 16:32] LABS: Glucose Point of Care 414 mg/dL (70-110)
[2024-02-12] MEDS: sucralfate 1 gm Tablet PO ×2 (17:06→20:21)
[2024-02-12 17:29] LABS: Hematocrit 26.6 % (36-47)
[2024-02-12 18:09] LABS: Vitamin B12 423 pg/mL (232-1245)
[2024-02-12 20:19] LABS: Glucose Point of Care 468 mg/dL (70-110)
[2024-02-12] MEDS: HYDROcodone-acetaminophen 5-325 mg Tablet 1 TAB PO (21:13)
[2024-02-13] VITALS (8 sets, daily range): BP systolic 144–158; BP diastolic 70–80; PULSE 75–94; RESP 16–20; TEMP 36.6; O2SAT 94–100
[2024-02-13] MEDS: pantoprazole 40 mg SDV IVP (02:32)
[2024-02-13] MEDS: ipratropium-albuterol 3 mL Neb INHALATION ×3 (04:27→13:24)
[2024-02-13 05:49] LABS: Hematocrit 26.2 % (36-47); Lymphocytes # 0.9 10^3/uL (0.8-4.8); Lymphocytes % 8.7 %; Mean Corpuscular HGB Conc 28.2 g/dL (30-55); Mean Corpuscular Hemoglobin 26.3 pg (27-33); Mean Corpuscular Volume 93.2 fl (85-98); Mean Platelet Volume 10.3 fL (7.4-10.4); Monocytes # 0.8 10^3/uL (0.2-0.9); Monocytes % 8.4 %; Neutrophils # 8.07 10^3/uL (1.8-7.7); Neutrophils % 81.6 %; Nucleated Red Blood Cells # 0.1 /100WBC; Nucleated Red Blood Cells % 0.6 %; Platelet Count 262 10^3/cmm (157-399); Red Blood Count 2.81 10^6/uL (3.85-5.65); Red Cell Distribution Width 15.3 % (12.1-15.1); White Blood Count 9.89 10^3/uL (3.29-11.43)
[2024-02-13] MEDS: sucralfate 1 gm Tablet PO ×2 (06:03→11:49)
[2024-02-13] MEDS: FUROsemide 20 mg Tablet 40 MG PO (06:03)
[2024-02-13] MEDS: insulin lispro 100 unit/1 mL 15 UNIT SUBCUT ×2 (06:26→11:48)
[2024-02-13 06:27] LABS: SARS Covid-2 Antigen negative (Negative)
[2024-02-13 06:33] LABS: Glucose Point of Care 311 mg/dL (70-110)
[2024-02-13] MEDS: ferrous sulfate EC 325 mg Tablet PO (08:19)
[2024-02-13] MEDS: ropinirole 1 mg Tablet PO (08:19)
[2024-02-13] MEDS: atorvastatin 40 mg Tablet 80 MG PO (08:19)
[2024-02-13] MEDS: duloxetine 60 mg Capsule PO (08:19)
[2024-02-13] MEDS: magnesium oxide 400 mg tablet PO (08:19)
[2024-02-13] MEDS: methylPREDNISolone sod succ 40 mg/mL INJ IVP (08:20)
[2024-02-13] MEDS: apixaban 5 mg Tablet PO (08:20)
[2024-02-13] MEDS: docusate sodium 100 mg Capsule PO (08:20)
[2024-02-13] MEDS: dilTIAZem ER (24HR) 180 mg Capsule PO (08:20)
[2024-02-13] MEDS: insulin glargine 100 units/1 mL 40 UNIT SUBCUT (08:20)
[2024-02-13] MEDS: insulin lispro 100 unit/1 mL SUBCUT ×2 (08:21→11:49)
[2024-02-13] MEDS: mupirocin oint 22 gm 1 APPLIC TOPICAL (08:25)
[2024-02-13] MEDS: budesonide 0.5 mg/2 mL Neb INHALATION (09:07)
--- NOTE | 2024-02-13 11:07 | PM.DCS ---
Discharge Providers Date of Admission: 02/11/24 03:32 Date of Discharge: February 13, 2024 Attending Provider at Admission: Gato Nguyen MD Attending Provider at Discharge: Javy Saba MD Primary Care Provider: Elaine Topete Diagnoses at Discharge Discharge Diagnosis (1) COPD (chronic obstructive pulmonary disease): Status: Chronic (2) Leukocytosis: Status: Acute (3) Anemia: Status: Acute Qualifiers: Anemia type: unspecified type Qualified Code(s): D64.9 - Anemia, unspecified (4) Congestive heart failure: Status: Acute (5) Sacral pressure sore: Status: Acute (6) Chronic atrial fibrillation: Status: Chronic (7) Coronary artery disease: Status: Chronic (8) Type 2 diabetes mellitus: Status: Acute (9) Morbid obesity: Status: Chronic (10) Gastroesophageal reflux disease: Status: Chronic (11) Restless leg syndrome: Status: Chronic Reason for Visit Reason for Visit: SOB Brief History: Purvi Sparks is a 78 year old female with a past medical history significant for COPD with chronic hypoxic respiratory failure on 4 L baseline, heart failure with preserved ejection fraction, chronic atrial fibrillation on DOAC, chronic pain on opiates, restless leg syndrome, hyperlipidemia, coronary artery disease, hypertension, morbid obesity, type 2 diabetes mellitus, and multiple prior bacterial infections who presents to the emergency department from nursing facility with shortness of breath. Patient reports onset about 3 to 4 days ago with progressively worsening symptoms. She was reportedly more hypoxic with SpO2 in the 70s on her home oxygen at the facility per EMS report. She endorses associated cough, wheezing, generalized malaise and fatigue. Exertion worsens symptoms. Rest improves. Endorses diffuse pains. Denies other new complaints. Daughter is bedside. She reports a recent COVID-19 outbreak at the facility. Patient's rapid COVID testing is negative in the emergency department. In the ED, patient found to be tachycardic with soft blood pressure. Labs revealed persistent leukocytosis, anemia with hemoglobin of 6.3, and elevated proBNP to 808. ABG consistent with chronic hypercapnia. Hospital Course Hospital Course Patient was admitted to the hospital for evaluation and management of hypoxia respiratory failure. At first there was concern for COPD exacerbation along with possible pneumonia along with CHF exacerbation in setting of acute anemia. She was started on broad-spectrum antibiotics, nebulization treatment, 2 units of blood transfusion. After blood transfusion patient responded well to the treatment and has been back to her baseline oxygen supplementation for last 24 to 48 hours. Patient was monitored off antibiotics and she remained hemodynamically stable and afebrile. It is believed her symptoms were most likely in setting of CHF exacerbation from acute severe anemia. Patient did not have any bowel movements during hospitalization and her hemoglobin remained stable after 2 units. Concerns for slow GI bleed were discussed in detail with the patient at bedside. It was discussed about merits versus demerits of being on anticoagulation with Eliquis 5 mg twice daily in setting of atrial fibrillation with risk of stroke versus recurrent admissions for acute anemia. Patient verbalized understanding but would want to hold off on making a decision for now before talking to her daughter. Call was placed to daughter as well but unfortunately was not able to get in touch with her so left a message. For now she has been discharged in hemodynamically stable condition on oral iron supplementation along with vitamin B12 supplementation. She is to continue taking all her medications as before. Sucralfate 4 times a day has also been added to her medication list along with Protonix twice daily. Physical Exam Narrative: General: Patient is awake. Appears chronically ill. Head: Normocephalic. Atraumatic. EOM intact. Hard of hearing. Neck: JVD difficult to assess due to neck circumference. Cardiovascular: Borderline tachycardic. No gallops. No murmurs. No peripheral edema. Lungs: Breath sounds are distant. Diffuse wheezing throughout bilateral lung guadalupe. Increased work of breathing when speaking. On supplemental oxygen support. Skin: No jaundice. No rashes. Sacral pressure injury only partially visualized. Abdomen: Normal bowel sounds, abdomen soft and nontender. Genito Urinary: Genital exam not performed since complaints not related. Rectal: Rectal exam not performed since no symptoms indicated blood loss. Extremities: No cyanosis or clubbing. Musculoskeletal: No o swollen or erythematous joints. Neurological: Moves all 4 extremities. No myoclonus. Urinary Catheter Management: Curry: Cath Placed During This Visit: yes Reason for Continuing Indwelling Catheter: Assist Healing of Perineal & Sacral Wounds- Incontinent Patients Urinary Catheter Date of Insertion: 02/11/24 Urinary Catheter Time of Insertion: 13:52 Discharge Data Studies Completed and Pending Completed Studies During Hospitalization Category Date Time Status XR chest 1V portable [id number] Stat Exams 08/05/24 01:56 Completed Pending at discharge Category Date Time Status Blood Culture Stat Lab 02/11/24 03:10 Results Occult Blood Stool [Immunochemical Fecal OCB] Routine Lab 02/11/24 03:07 Uncollected Sputum Culture and Gram Stain Stat Lab 02/11/24 13:49 Uncollected Radiology Impressions Chest X-Ray 02/11/24 01:56 IMPRESSION: There is mild prominence and indistinctness of the pulmonary vasculature and hazy and strandy opacity is present in the lower leyda thoraces, findings that may represent pulmonary edema. Strandy opacities in the lung bases could represent atelectasis as well. Laboratory Results WBC 9.89 10^3/uL (3.29-11.43) 02/13/24 05:25 RBC 2.81 10^6/uL (3.85-5.65) L 02/13/24 05:25 Hgb 7.40 g/dL (11.27-16.99) L 02/13/24 05:25 Hct 26.2 % (36-47) L 02/13/24 05:25 MCV 93.2 fl (85-98) 02/13/24 05:25 MCH 26.3 pg (27-33) L 02/13/24 05:25 MCHC 28.2 g/dL (30-55) L 02/13/24 05:25 RDW 15.3 % (12.1-15.1) H 02/13/24 05:25 Plt Count 262 10^3/cmm (157-399) 02/13/24 05:25 MPV 10.3 fL (7.4-10.4) 02/13/24 05:25 Neut % (Auto) 81.6 % 02/13/24 05:25 Lymph % (Auto) 8.7 % 02/13/24 05:25 [place] % (Auto) 8.4 % 02/13/24 05:25 Eos % (Auto) 0.0 % 02/13/24 05:25 Baso % (Auto) 0.0 % 02/13/24 05:25 Neut # (Auto) 8.07 10^3/uL (1.8-7.7) H 02/13/24 05:25 Lymph # (Auto) 0.9 10^3/uL (0.8-4.8) 02/13/24 05:25 [place] # (Auto) 0.8 10^3/uL (0.2-0.9) 02/13/24 05:25 Eos # (Auto) 0.0 10^3/uL (0.0-0.8) 02/13/24 05:25 Baso # (Auto) 0.0 10^3/uL (0.0-0.1) 02/13/24 05:25 Nucleated RBC % (auto) 0.6 % 02/13/24 05:25 Nucleated RBCs # 0.1 /100WBC 02/13/24 05:25 PT 19.40 SECONDS (12.1-14.9) H 02/11/24 02:07 INR 1.57 (0.8-1.2) H 02/11/24 02:07 Specimen Type Arterial 02/11/24 02:12 Sample Site Radial, left 02/11/24 02:12 ABG pH 7.38 (7.35-7.45) 02/11/24 02:12 ABG pCO2 58.6 mmHg (35-45) H 02/11/24 02:12 ABG pO2 80.0 mmHg (80.0-100.0) 02/11/24 02:12 ABG HCO3 34.7 mmol/L (22-26) H 02/11/24 02:12 ABG Base Excess 8.7 mmol/L (-2.0-2.0) H 02/11/24 02:12 Monico Test Pos 02/11/24 02:12 Hematocrit 20.2 % (37-47) L 02/11/24 02:12 Hgb O2 Saturation 92.7 % (95-100) L 02/11/24 02:12 Carboxyhemoglobin 3.2 %THgb (0.4-20.1) 02/11/24 02:12 Methemoglobin 1.2 % (0.4-1.5) 02/11/24 02:12 Total Hemoglobin 6.6 g/dL (12-16) L 02/11/24 02:12 O2 Delivery Device Nc 02/11/24 02:12 O2 Liters/Min 4.0 % 02/11/24 02:12 Echocardiograph Technician ID [email or web address] 02/11/24 02:12 Sodium 134 mmol/L (136-145) L 02/12/24 02:32 Potassium 4.3 mmol/L (3.5-5.1) 02/12/24 02:32 Chloride 91 mmol/L (98-107) L 02/12/24 02:32 Carbon Dioxide 32 mmol/L (22-29) H 02/12/24 02:32 Anion Gap 15.3 (5-19) 02/12/24 02:32 BUN 21 mg/dL (8-23) 02/12/24 02:32 Creatinine 0.7 mg/dL (0.5-0.9) 02/12/24 02:32 GFR Calculation Not Reportable 02/12/24 02:32 Glucose 267 mg/dL (65-115) H 02/12/24 02:32 POC Glucose 311 mg/dL (70-110) H 02/13/24 06:24 Calculated Osmolality 290 mOsm/kg (285-295) 02/12/24 02:32 Lactic Acid 2.8 mmol/L (0.5-2.2) H 02/11/24 02:07 Lactic Acid (Sepsis) 3.0 mmol/L (0.5-2.2) H 02/11/24 04:46 Calcium 8.3 mg/dL (8.5-10.5) L 02/12/24 02:32 Phosphorus 2.9 mg/dL (2.5-4.5) 02/12/24 02:32 Magnesium 2.2 mg/dL (1.7-2.3) 02/12/24 02:32 Total Bilirubin 0.3 mg/dL (0.15-1.2) 02/12/24 02:32 AST 11 U/L (0-32) 02/12/24 02:32 ALT 10 U/L (0-33) 02/12/24 02:32 Alkaline Phosphatase 104 U/L (35-105) 02/12/24 02:32 Troponin T Baseline 34 ng/L (0-10) H 02/11/24 02:07 Troponin T 120 Minute 33.30 ng/L (0-10) H 02/11/24 04:46 Delta Troponin T -0.70 ABS# (0-10) L 02/11/24 04:46 Troponin T Hi Sens 6Hr 28.57 ng/L (0-10) H 02/11/24 09:05 Troponin T Hi Sens 6Hr Delta -5.43 ng/L (0-12) L 02/11/24 09:05 NT-Pro-B Natriuret Pep 808 pg/mL (0-450) H 02/11/24 02:07 Total Protein 6.1 g/dL (6.6-8.7) L 02/12/24 02:32 Albumin 3.3 g/dL (3.5-5.2) L 02/12/24 02:32 Globulin 2.8 g/dL (1.3-4.6) 02/12/24 02:32 Vitamin B12 423 pg/mL (232-1245) 02/12/24 17:16 Procalcitonin 0.26 ng/mL (0-0.5) 02/11/24 04:46 Urine Color Yellow (Yellow) 02/11/24 13:55 Urine Appearance Clear (CLEAR) 02/11/24 13:55 Urine pH 5.0 (5-7) 02/11/24 13:55 Ur Specific [place] 1.014 (1.005-1.030) 02/11/24 13:55 Urine Protein Negative (Negative) 02/11/24 13:55 Urine Glucose (UA) 1+ (Normal) H 02/11/24 13:55 Urine Ketones Negative (Negative) 02/11/24 13:55 Urine Blood Trace (Negative) A 02/11/24 13:55 Urine Nitrate Negative (Negative) 02/11/24 13:55 Urine Bilirubin Negative (Negative) 02/11/24 13:55 Urine Urobilinogen 0.2 mg/dL (Negative) 02/11/24 13:55 Ur Leukocyte Esterase Negative (Negative) 02/11/24 13:55 Urine RBC 0-2 /hpf (0-2) 02/11/24 13:55 Urine WBC 6-10 /hpf (0-5) 02/11/24 13:55 Ur Squamous Epith Cells 0-5 /hpf (0-5) 02/11/24 13:55 Amorphous Sediment Not Reportable 02/11/24 13:55 Urine Bacteria None seen /hpf (NONE) 02/11/24 13:55 Hyaline Casts 20.67 /lpf 02/11/24 13:55 Fine Granular Casts 5-10 /lpf H 02/11/24 13:55 SARS-CoV-2 Ag (Rapid) negative (Negative) 02/13/24 06:05 Blood Type O Positive 02/11/24 04:46 Rho(D) Type Rh positive 02/11/24 04:46 Antibody Screen Negative 02/11/24 04:46 Crossmatch See Detail 02/11/24 04:46 Vitals Last Vital Signs Temp 97.8 F 02/13/24 07:30 Pulse 94 02/13/24 09:10 Resp 18 02/13/24 09:10 BP 158/80 02/13/24 07:30 Pulse Ox 97 02/13/24 09:10 O2 Del Method Nasal Cannula 02/13/24 09:10 O2 Flow Rate 4 02/13/24 09:10 Discharge Plan Discharge Patient Disposition: Xfer SNF Condition: Stable Prescriptions: New sucralfate 1 gram Tablet 1 g PO AC&BEDTIME Qty: 120 1RF prednisone 10 mg tablet See Taper PO DIRECTED Qty: 42 0RF Taper: predniSONE 60-10 60 mg Daily for 2 Days and 0 Hour 50 mg Daily for 2 Days and 0 Hour 40 mg Daily for 2 Days and 0 Hour 30 mg Daily for 2 Days and 0 Hour 20 mg Daily for 2 Days and 0 Hour 10 mg Daily for 2 Days and 0 Hour Rx Instructions: see taper instructions Continued ropinirole 1 mg Tablet 1 mg PO DAILY Eliquis 5 mg Tablet 5 mg PO BID Hold Instructions: Resume on 08/30/23. docusate sodium [Stool Softener] 100 mg Tablet 100 mg PO BID ondansetron HCl 4 mg Tablet 4 mg PO Q6H PRN (Reason: Nausea) magnesium oxide 400 mg (241.3 mg magnesium) Tablet 400 mg PO BID Qty: 6 0RF Trelegy Ellipta 100-62.5-25 mcg blister with device 1 inh inhalation DAILY Qty: 60 0RF albuterol sulfate 90 mcg/actuation HFA aerosol inhaler 1 inh inhalation Q6H PRN (Reason: shortness of breath or wheezing) Qty: 8.5 0RF acetaminophen 325 mg Tablet 650 mg PO Q4H PRN (Reason: Pain OR FEVER) hydrocodone-acetaminophen 5-325 mg tablet 1 tab PO Q4H PRN (Reason: Pain) magnesium hydroxide [Milk of Magnesia] 400 mg/5 mL Suspension 30 ml PO DAILY PRN (Reason: Constipation) bisacodyl [Dulcolax (bisacodyl)] 10 mg Suppository 10 mg PA DAILY PRN (Reason: Constipation) Fleet Enema 19-7 gram/118 mL Enema 118 ml PA DAILY PRN (Reason: Constipation) rosuvastatin 20 mg tablet 20 mg PO DAILY duloxetine 60 mg capsule,delayed release(DR/EC) 60 mg PO DAILY Artificial Tears (cmc) 1 % Drops 1 drp OPHTHALMIC (EYE) PRN diltiazem HCl [Cardizem CD] 180 mg capsule,extended release 24hr 180 mg PO DAILY Qty: 30 0RF mupirocin 2 % Ointment 1 applic TOPICAL DAILY Rx Instructions: nares, q6d nystatin 100,000 unit/gram Powder 1 applic TOPICAL BID PRN (Reason: SKIN REDNESS) chlorhexidine gluconate [Hibiclens] 4 % Liquid See Rx Instructions .ROUTE .COMPLEX Rx Instructions: APPLY TOPICALLY ALL OVER BODY EXCEPT FACE, EVERY 6 DAYS. insulin lispro [Humalog KwikPen Insulin] 100 unit/mL Insulin Pen See Rx Instructions .ROUTE .COMPLEX Rx Instructions: INJECT 20 UNITS 3 TIMES DAILY PLUS SLIDING SCALE: BS 150-200=0 UNITS, 201-250=2 UNITS, 251-300=4 UNITS, 301-350=6 UNITS, 351-400=8 UNITS. cholecalciferol (vitamin D3) 1,250 mcg (50,000 unit) Capsule 1 mcg PO Q7D Rx Instructions: ON SUNDAY diclofenac sodium 1 % Gel See Rx Instructions .ROUTE .COMPLEX Rx Instructions: APPLY 4G TOPICALLY TO RIGHT KNEW EVERY 12 HOURS NEEDED FOR PAIN. potassium chloride [Klor-Con M20] 20 mEq tablet,ER particles/crystals 20 meq PO DAILY 30 Days Qty: 30 0RF furosemide [Lasix] 20 mg tablet 40 mg PO QAM 30 Days Qty: 60 0RF albuterol sulfate 2.5 mg /3 mL (0.083 %) solution for nebulization 2.5 mg inhalation Q4H PRN (Reason: Shortness Of Breath Or Wheezing) alprazolam 0.25 mg tablet 0.25 mg PO Q12H PRN (Reason: Anxiety) Lantus Solostar U-100 Insulin 100 unit/mL (3 mL) insulin pen 70 unit SUBCUT BID Changed pantoprazole 40 mg Tablet,Delayed Release (Dr/Ec) 40 mg PO BIDWM Qty: 60 0RF ferrous sulfate 325 mg (65 mg iron) Tablet 325 mg PO BIDWM Qty: 60 0RF Discharge Orders: Discharge Order (Routine); Ordered 02/13/24 Ordered By: Javy Saba Referrals: [facility] [place] [Outside] Elaine Topete PA [Primary Care Provider] - 7-10 days Discharge Diet: Cardiac and Diabetic Discharge Activity: Resume usual activity and Increase activity as tolerated Patient Instructions: Opioid Safety Activity Restrictions/Additional Instructions: Please consider stopping Eliquis twice daily given concerns for recurrent episodes of acute anemia. Please note when you are off Eliquis you will be at a higher risk of stroke given baseline atrial fibrillation. For now continue taking Protonix twice daily along with Carafate before meals and at bedtime. Take Carafate before meals and at bedtime for next 4 weeks followed by twice daily. Prednisone taper as above. Follow-up with a primary care provider within next 1 week for repeat CBC. Discharge Attestations Time Spent in Discharge Care*: greater than 30 min Specific Discharge Activities: educating patient, discussing with pcp/other providers, discussing with adult protective caseworker/social workers/dc planners, documenting/other paperwork and evaluating patient/reviewing data Status at Discharge: Cognitive status at discharge: cognitively intact, Behavioral status at discharge: cooperative, Functional status at discharge: bed bound, Overall status at discharge: patient is back to baseline Quality Metrics Clinical Quality Measures [ No reported AMI, CVA or VTE this stay] Coding Level of Care Code 57836 Total time (in minutes) for Discharge: 60 Diagnoses COPD (chronic obstructive pulmonary disease) J44.9 Leukocytosis D72.829 Anemia D64.9 Anemia type: unspecified type Congestive heart failure I50.9 Sacral pressure sore L89.159 Chronic atrial fibrillation I48.20 Coronary artery disease I25.10 Type 2 diabetes mellitus E11.9 Morbid obesity E66.01 Gastroesophageal reflux disease K21.9 Restless leg syndrome G25.81
[2024-02-13 11:46] LABS: Glucose Point of Care 454 mg/dL (70-110)
[2024-02-13] MEDS: FUROsemide 10 mg/mL SDV 2mL 20 MG IVP (11:49)
[2024-02-13] MEDS: acetaminophen 325 mg Tablet 650 MG PO (11:49)
--- NOTE | 2024-02-13 12:31 | PC.NURSE ---
This nurse called report to Lashell at [facility]. Awaiting EMS ride for transport
== END 2024-02-13 13:45 | disposition skilled nursing facility (03) ==
LOC: ER 03:32 → MEDSURG 03:32
PROVIDERS: Admitting Provider Internal Medicine; Emergency Provider Student in an Organized Health Care Education/Training Program; PCP Physician Assistant; Visit Provider Student in an Organized Health Care Education/Training Program
DX: J44.9 Chronic obstructive pulmonary disease, unspecified (principal); J96.11 Chronic respiratory failure with hypoxia; D72.829 Elevated white blood cell count, unspecified; D64.9 Anemia, unspecified; L89.159 Pressure ulcer of sacral region, unspecified stage; I48.20 Chronic atrial fibrillation, unspecified; I25.10 Atherosclerotic heart disease of native coronary artery without angina pectoris; E11.9 Type 2 diabetes mellitus without complications; E66.01 Morbid (severe) obesity due to excess calories; Z68.42 Body mass index [BMI] 45.0-49.9, adult; K21.9 Gastro-esophageal reflux disease without esophagitis; G25.81 Restless legs syndrome; I50.30 Unspecified diastolic (congestive) heart failure; G89.29 Other chronic pain; Z79.01 Long term (current) use of anticoagulants; Z99.81 Dependence on supplemental oxygen; E78.5 Hyperlipidemia, unspecified; Z86.14 Personal history of Methicillin resistant Staphylococcus aureus infection; Z87.891 Personal history of nicotine dependence; Z79.4 Long term (current) use of insulin
CPT/HCPCS: 36415; 36416; 36430; 36600; 51702; 71045; 80053; 81003; 81015; 82607; 82805; 82962; 83605; 83735; 83880; 84100; 84145; 84484; 85014; 85018; 85025; 85610; 86850; 86900; 86920; 87040; 87426; 93005; 94640; 96365; 96366; 96367; 96372; 96375; 96376; 99285; G0378; J0692; J0696; J1815; J1940; J2185; J2405; J2470; J2919; J3370; J3372; J7626; P9016

== ENCOUNTER 2024-02-27 01:45 | Emergency (ER) | payer MEDICARE, MEDICAID, SELFPAY ==
[2024-02-27] VITALS (19 sets, daily range): BP systolic 99–133; BP diastolic 38–92; PULSE 67–91; RESP 15–21; TEMP 36.5; O2SAT 86–100; BMI 56.6
--- NOTE | 2024-02-27 01:51 | XRR_ITS ---
PROCEDURE INFORMATION: Exam: XR Chest Exam date and time: 02/27/2024 2:22 AM Age: 78 years old Clinical indication: Cough; Additional info: AMS TECHNIQUE: Imaging protocol: Radiologic exam of the chest. Views: 1 view. COMPARISON: CR (CHEST, ) 02/11/2024 1:59 AM FINDINGS: Lungs: Ground-glass consolidation in the right lung. Pleural spaces: Right-sided pleural effusion. Heart/Mediastinum: Cardiac silhouette is enlarged, similar to prior exam. Bones/joints: Unremarkable. Other findings: Patient is rotated on the radiograph. XR/XR chest 1V portable [id number] IMPRESSION: 1. Right-sided pleural effusion. 2. Ground-glass consolidation in the right lung.
--- NOTE | 2024-02-27 01:55 | ED_ITS ---
HPI - Altered Mental Status 2 General: Chief Complaint: Altered Mental Status Stated Complaint: AMS Time Seen by Provider: 02/27/24 01:53 History of Present Illness: Patient presents from [facility] with low O2 sat and altered mental status. Patient's last known normal was midnight. Patient was found at approximately 1:00 in an altered state and not responding per her normal. Patient was just recently in the hospital for anemia. Patient normally wears oxygen per nasal cannula at all times. EMS stated that they saw patient moves all 4 extremities. Mildly combative when he tried to transfer her. Related Data Home Medications Medication Instructions Recorded Confirmed apixaban 5 mg tablet (Eliquis) 5 mg PO BID 07/18/19 02/11/24 ropinirole 1 mg tablet 1 mg PO DAILY 07/18/19 02/11/24 docusate sodium 100 mg tablet 100 mg PO BID 01/06/20 02/11/24 (Stool Softener) ondansetron HCl 4 mg tablet 4 mg PO Q6H PRN Nausea 01/25/23 02/11/24 acetaminophen 325 mg tablet 650 mg PO Q4H PRN Pain OR FEVER 08/15/23 02/11/24 bisacodyl 10 mg rectal suppository 10 mg AZ DAILY PRN Constipation 08/15/23 02/11/24 (Dulcolax (bisacodyl)) carboxymethylcellulose sodium 1 % 1 drp ophthalmic (eye) PRN DRY EYES 08/15/23 02/11/24 eye drops (Artificial Tears (carboxymethylcellulose)) duloxetine 60 mg capsule,delayed 60 mg PO DAILY 08/15/23 02/11/24 release hydrocodone 5 mg-acetaminophen 325 1 tab PO Q4H PRN Pain 08/15/23 02/11/24 mg tablet magnesium hydroxide 400 mg/5 mL 30 ml PO DAILY PRN Constipation 08/15/23 02/11/24 oral suspension (Milk of Magnesia) rosuvastatin 20 mg tablet 20 mg PO DAILY 08/15/23 02/11/24 sodium phosphates 19 gram-7 118 ml AZ DAILY PRN Constipation 08/15/23 02/11/24 gram/118 mL enema (Fleet Enema) chlorhexidine gluconate 4 % See Rx Instructions .Route .COMPLEX 01/15/24 02/11/24 topical liquid (Hibiclens) cholecalciferol (vitamin D3) 1,250 1 mcg PO Q7D 01/15/24 02/11/24 mcg (50,000 unit) capsule diclofenac sodium 1 % topical gel See Rx Instructions .Route .COMPLEX 01/15/24 02/11/24 insulin lispro 100 unit/mL See Rx Instructions .Route .COMPLEX 01/15/24 02/11/24 subcutaneous pen (Humalog KwikPen (U-100) Insulin) mupirocin 2 % topical ointment 1 applic topical DAILY 01/15/24 02/11/24 nystatin 100,000 unit/gram topical 1 applic topical BID PRN SKIN 01/15/24 02/11/24 powder REDNESS albuterol sulfate 2.5 mg/3 mL 2.5 mg inhalation Q4H PRN 02/11/24 02/11/24 (0.083 %) solution for nebulization Shortness Of Breath Or Wheezing alprazolam 0.25 mg tablet 0.25 mg PO Q12H PRN Anxiety 02/11/24 02/11/24 insulin glargine 100 unit/mL (3 70 unit SUBCUT BID 02/11/24 02/11/24 mL) subcutaneous pen (Lantus Solostar U-100 Insulin) Previous Rx's Medication Instructions Recorded albuterol sulfate 90 mcg/actuation 1 inh inhalation Q6H PRN shortness 02/02/23 aerosol inhaler of breath or wheezing #8.5 grams fluticasone fur. 100 mcg-umeclid 1 inh inhalation DAILY #60 ea 02/02/23 62.5 mcg-vilant 25 mcg inhalat.powder (Trelegy Ellipta) magnesium oxide 400 mg (241.3 mg 400 mg PO BID #6 tabs 02/02/23 magnesium) tablet diltiazem HCl 180 mg 180 mg PO DAILY #30 caps 08/16/23 capsule,extended release 24 hr (Cardizem CD) furosemide 20 mg tablet (Lasix) 40 mg (2 x 20 mg) PO QAM 30 days 01/21/24 #60 tabs ferrous sulfate 325 mg (65 mg 325 mg PO BIDWM #60 tabs 02/13/24 iron) tablet pantoprazole 40 mg tablet,delayed 40 mg PO BIDWM #60 tabs 02/13/24 release prednisone 10 mg tablet See Taper PO DIRECTED #42 tabs 02/13/24 sucralfate 1 gram tablet 1 g PO AC&BEDTIME #120 tabs 02/13/24 Allergies Allergy/AdvReac Type Severity Reaction Status Date / Time morphine Allergy ALGY-Rash Verified 02/27/24 01:53 quinine Allergy ALGY-Rash Verified 02/27/24 01:53 Sulfa (Sulfonamide Allergy ALGY-Rash Verified 02/27/24 01:53 Antibiotics) Penicillins AdvReac ALGY-Rash Verified 02/27/24 01:53 Review of Systems 2 General: Reports: ROS unobtainable due to mental status PFSH ED 2 PFSH: Medical History Pneumonia Heart failure with preserved left ventricular function History of echocardiogram 08/2023 technically difficult study due to poor ultrasonic windows, grossly normal LV systolic function, grade 1 diastolic dysfunction, mild MR, mild TR, left atrial dilitation Osteoporosis DEXA 09/2023 Right femoral neck T score -4.2 and Z score -0.3; L spine T score 0.2, Z score 0.9, fracture risk 10 yr probability 45%, hip fracture 22.9% ESBL 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 difficile colitis Gastroesophageal reflux disease Hyperlipidemia On apixaban therapy History of ESBL E. coli infection History of MRSA infection History of small bowel obstruction Medically managed to date Diabetes mellitus Coronary artery disease HTN (hypertension), malignant COPD (chronic obstructive pulmonary disease) Morbid obesity Surgical History History of colonoscopy (~2013) History of bladder suspension procedure History of orthopedic surgery Wrist and left leg History of cholecystectomy History of tubal ligation History of appendectomy Family History Other CAD (coronary artery disease) Cancer Social History Smoking and tobacco/nicotine status: former use of tobacco/nicotine Quit status (tobacco/nicotine): has quit using Alcohol intake: never Substance/Drug Use: never Caregiver/support person: Yes (Son ) Housing: Residential Physical Exam 2 Const: COMMON NORMALS: no acute distress, average body habitus, healthy appearing, alert and well nourished HENMT: COMMON NORMALS: normocephalic, atraumatic, hearing grossly normal bilaterally, external ears normal, Normal external nose present, moist oral mucous membranes and oropharynx normal HEAD & SCALP: normocephalic and atraumatic NOSE: Normal external nose present EXTERNAL EAR: Yes external ears normal Eye: COMMON NORMALS: Equal, round and reactive pupils present, EOMs intact bilaterally, conjunctivae normal and no scleral icterus CONJUNCTIVA: Yes conjunctivae normal PUPIL: Yes Equal, round and reactive pupils present Neck/C-Spine: COMMON NORMALS: full ROM, no lymphadenopathy, supple, no meningeal signs, no JVD and Thyroid normal THYROID: Thyroid normal Chest: COMMONS NORMALS: normal inspection of the chest and normal palpation of entire chest wall Resp: COMMON NORMALS: normal respiratory effort, No retractions and No use of accessory muscles; negative for clear to auscultation bilaterally (Mild wheezing right side) A USCULTATION: not clear to auscultation bilaterally (Mild wheezing right side) Cardio: COMMON NORMALS: no JVD, regular rate, regular rhythm, S1 normal heart sound present, S2 normal heart sound present, No gallops present (Cardio), No clicks present (Cardio) and No murmurs present (Cardio) RATE: regular rate RHYTHM: regular rhythm HEART SOUNDS: S1 normal heart sound present and S2 normal heart sound present GI: COMMON NORMALS: Normal to inspection, nondistended, normoactive bowel sounds present, Soft to palpation, non-tender, No hepatosplenomegaly present and no masses PALPATION: Yes Soft to palpation and Yes No hepatosplenomegaly present Neuro: SENSORIUM/ORIENTATION: Yes alert MENINGEAL SIGNS: Yes no meningeal signs OTHER: Pupils equal round responsive to light, patient will move all 4 extremities no localizing neurologic signs. Course 2 Vital Signs: Vital signs: Vital Signs Temperature 97.7 F 02/27/24 01:46 Pulse Rate 86 02/27/24 02:29 Respiratory Rate 20 H 02/27/24 02:29 Blood Pressure 128/73 02/27/24 02:29 Pulse Oximetry 92 02/27/24 02:29 Oxygen Delivery Me thod Nasal Cannula 02/27/24 02:29 Oxygen Flow Rate 3 02/27/24 01:46 MDM - Altered Mental Status Medical Decision Making Nursing stated that the patient was moving all extremities and talking to her and trying to crawl out of bed. I went back to reevaluate the patient this is the case. Lab work was reviewed as well as chest x-ray head CT, discussed these results with the patient and her family. Patient is ready to [facility] back to her [facility]. Patient will be discharged. Lab Data 02/27/24 01:50 02/27/24 01:50 Radiology Impressions Chest X-Ray 02/27/24 01:51 IMPRESSION: 1. Right-sided pleural effusion. 2. Ground-glass consolidation in the right lung. Head CT 02/27/24 02:28 IMPRESSION: 1. No acute intracranial abnormality identified. 2. Moderate chronic microvascular ischemic disease. Laboratory Results WBC 12.85 10^3/uL (3.29-11.43) H 02/27/24 01:50 RBC 2.91 10^6/uL (3.85-5.65) L 02/27/24 01:50 Hgb 7.20 g/dL (11.27-16.99) L 02/27/24 01:50 Hct 27.4 % (36-47) L 02/27/24 01:50 MCV 94.2 fl (85-98) 02/27/24 01:50 MCH 24.7 pg (27-33) L 02/27/24 01:50 MCHC 26.3 g/dL (30-55) L 02/27/24 01:50 RDW 16.2 % (12.1-15.1) H 02/27/24 01:50 Plt Count 313 10^3/cmm (157-399) 02/27/24 01:50 MPV 10.4 fL (7.4-10.4) 02/27/24 01:50 Neut % (Auto) 70.7 % 02/27/24 01:50 Lymph % (Auto) 16.9 % 02/27/24 01:50 Bucks % (Auto) 7.9 % 02/27/24 01:50 Eos % (Auto) 1.3 % 02/27/24 01:50 Baso % (Auto) 0.5 % 02/27/24 01:50 Neut # (Auto) 9.07 10^3/uL (1.8-7.7) H 02/27/24 01:50 Lymph # (Auto) 2.2 10^3/uL (0.8-4.8) 02/27/24 01:50 Bucks # (Auto) 1.0 10^3/uL (0.2-0.9) H 02/27/24 01:50 Eos # (Auto) 0.2 10^3/uL (0.0-0.8) 02/27/24 01:50 Baso # (Auto) 0.1 10^3/uL (0.0-0.1) 02/27/24 01:50 Nucleated RBC % (auto) 0.8 % 02/27/24 01:50 Nucleated RBCs # 0.1 /100WBC 02/27/24 01:50 Specimen Type Arterial 02/27/24 02:06 Sample Site Radial, right 02/27/24 02:06 ABG pH 7.43 (7.35-7.45) 02/27/24 02:06 ABG pCO2 65.5 mmHg (35-45) H* 02/27/24 02:06 ABG pO2 53.4 mmHg (80.0-100.0) L 02/27/24 02:06 ABG HCO3 43.2 mmol/L (22-26) H 02/27/24 02:06 ABG O2 Saturation 88.4 02/27/24 02:06 ABG Base Excess 16.9 mmol/L (-2.0-2.0) H 02/27/24 02:06 Monico Test Pos 02/27/24 02:06 A-a O2 Gradient 2.4 mmHg (5-10) L 02/27/24 02:06 Hematocrit 23.0 % (37-47) L 02/27/24 02:06 Hgb O2 Saturation 84.9 % (95-100) L 02/27/24 02:06 Carboxyhemoglobin 2.7 %THgb (0.4-20.1) 02/27/24 02:06 Methemoglobin 1.2 % (0.4-1.5) 02/27/24 02:06 Total Hemoglobin 7.5 g/dL (12-16) L 02/27/24 02:06 Sodium 140.0 mmol/L (131-143) 02/27/24 02:06 Potassium 3.6 mmol/L (3.5-5.0) 02/27/24 02:06 Glucose 167.0 mg/dL (70-115) H 02/27/24 02:06 Ionized Calcium 1.1 mmol/L (1.1-1.4) 02/27/24 02:06 O2 Delivery Device Nc 02/27/24 02:06 O2 Liters/Min 3.0 % 02/27/24 02:06 Job Counselor ID [email or web address] 02/27/24 02:06 Sodium 139 mmol/L (136-145) 02/27/24 01:50 Potassium 3.8 mmol/L (3.5-5.1) 02/27/24 01:50 Chloride 93 mmol/L (98-107) L 02/27/24 01:50 Carbon Dioxide 40 mmol/L (22-29) H 02/27/24 01:50 Anion Gap 9.8 (5-19) 02/27/24 01:50 BUN 11 mg/dL (8-23) 02/27/24 01:50 Creatinine 0.8 mg/dL (0.5-0.9) 02/27/24 01:50 GFR Calculation Not Reportable 02/27/24 01:50 Glucose 171 mg/dL (65-115) H 02/27/24 01:50 Calculated Osmolality 291 mOsm/kg (285-295) 02/27/24 01:50 Lactic Acid 1.8 mmol/L (0.5-2.2) 02/27/24 02:24 Calcium 8.2 mg/dL (8.5-10.5) L 02/27/24 01:50 Magnesium 1.9 mg/dL (1.7-2.3) 02/27/24 01:50 Total Bilirubin 0.3 mg/dL (0.15-1.2) 02/27/24 01:50 AST 12 U/L (0-32) 02/27/24 01:50 ALT 11 U/L (0-33) 02/27/24 01:50 Alkaline Phosphatase 124 U/L (35-105) H 02/27/24 01:50 Troponin T Baseline 50 ng/L (0-10) H 02/27/24 01:50 Troponin T 120 Minute 45.80 ng/L (0-10) H 02/27/24 03:58 Delta Troponin T -4.20 ABS# (0-10) L 02/27/24 03:58 NT-Pro-B Natriuret Pep 1232 pg/mL (0-450) H 02/27/24 01:50 Total Protein 5.8 g/dL (6.6-8.7) L 02/27/24 01:50 Albumin 3.0 g/dL (3.5-5.2) L 02/27/24 01:50 Globulin 2.8 g/dL (1.3-4.6) 02/27/24 01:50 Procalcitonin 0.31 ng/mL (0-0.5) 02/27/24 01:50 Urine Color Yellow (Yellow) 02/27/24 02:49 Urine Appearance Clear (CLEAR) 02/27/24 02:49 Urine pH 6.0 (5-7) 02/27/24 02:49 Ur Specific [place] 1.010 (1.005-1.030) 02/27/24 02:49 Urine Protein 1+ (Negative) A 02/27/24 02:49 Urine Glucose (UA) Negative (Normal) 02/27/24 02:49 Urine Ketones Negative (Negative) 02/27/24 02:49 Urine Blood Negative (Negative) 02/27/24 02:49 Urine Nitrate Negative (Negative) 02/27/24 02:49 Urine Bilirubin Negative (Negative) 02/27/24 02:49 Urine Urobilinogen 1.0 mg/dL (Negative) 02/27/24 02:49 Ur Leukocyte Esterase Negative (Negative) 02/27/24 02:49 Urine RBC 0-2 /hpf (0-2) 02/27/24 02:49 Urine WBC 0-5 /hpf (0-5) 02/27/24 02:49 Ur Squamous Epith Cells 0-5 /hpf (0-5) 02/27/24 02:49 Amorphous Sediment Not Reportable 02/27/24 02:49 Urine Bacteria None seen /hpf (NONE) 02/27/24 02:49 Hyaline Casts 1.62 /lpf 02/27/24 02:49 All radiology interpretation(s) finalized by discharge Discharge Plan Discharge Patient Disposition: Home Clinical Impression: Anemia Qualifiers: Anemia type: unspecified type Qualified Code(s): D64.9 - Anemia, unspecified COPD (chronic obstructive pulmonary disease) Qualifiers: COPD type: unspecified COPD Qualified Code(s): J44.9 - Chronic obstructive pulmonary disease, unspecified Condition: Stable Prescriptions: No Action ropinirole 1 mg Tablet 1 mg PO DAILY Eliquis 5 mg Tablet 5 mg PO BID Hold Instructions: Resume on 08/30/23. docusate sodium [Stool Softener] 100 mg Tablet 100 mg PO BID ondansetron HCl 4 mg Tablet 4 mg PO Q6H PRN (Reason: Nausea) magnesium oxide 400 mg (241.3 mg magnesium) Tablet 400 mg PO BID Qty: 6 0RF Trelegy Ellipta 100-62.5-25 mcg blister with device 1 inh inhalation DAILY Qty: 60 0RF albuterol sulfate 90 mcg/actuation HFA aerosol inhaler 1 inh inhalation Q6H PRN (Reason: shortness of breath or wheezing) Qty: 8.5 0RF acetaminophen 325 mg Tablet 650 mg PO Q4H PRN (Reason: Pain OR FEVER) hydrocodone-acetaminophen 5-325 mg tablet 1 tab PO Q4H PRN (Reason: Pain) magnesium hydroxide [Milk of Magnesia] 400 mg/5 mL Suspension 30 ml PO DAILY PRN (Reason: Constipation) bisacodyl [Dulcolax (bisacodyl)] 10 mg Suppository 10 mg AZ DAILY PRN (Reason: Constipation) Fleet Enema 19-7 gram/118 mL Enema 118 ml AZ DAILY PRN (Reason: Constipation) rosuvastatin 20 mg tablet 20 mg PO DAILY duloxetine 60 mg capsule,delayed release(DR/EC) 60 mg PO DAILY Artificial Tears (cmc) 1 % Drops 1 drp OPHTHALMIC (EYE) PRN diltiazem HCl [Cardizem CD] 180 mg capsule,extended release 24hr 180 mg PO DAILY Qty: 30 0RF mupirocin 2 % Ointment 1 applic TOPICAL DAILY Rx Instructions: nares, q6d nystatin 100,000 unit/gram Powder 1 applic TOPICAL BID PRN (Reason: SKIN REDNESS) chlorhexidine gluconate [Hibiclens] 4 % Liquid See Rx Instructions .ROUTE .COMPLEX Rx Instructions: APPLY TOPICALLY ALL OVER BODY EXCEPT FACE, EVERY 6 DAYS. insulin lispro [Humalog KwikPen Insulin] 100 unit/mL Insulin Pen See Rx Instructions .ROUTE .COMPLEX Rx Instructions: INJECT 20 UNITS 3 TIMES DAILY PLUS SLIDING SCALE: BS 150-200=0 UNITS, 201- 250=2 UNITS, 251-300=4 UNITS, 301-350=6 UNITS, 351-400=8 UNITS. cholecalciferol (vitamin D3) 1,250 mcg (50,000 unit) Capsule 1 mcg PO Q7D Rx Instructions: ON SUNDAY diclofenac sodium 1 % Gel See Rx Instructions .ROUTE .COMPLEX Rx Instructions: APPLY 4G TOPICALLY TO RIGHT KNEW EVERY 12 HOURS NEEDED FOR PAIN. furosemide [Lasix] 20 mg tablet 40 mg PO QAM 30 Days Qty: 60 0RF albuterol sulfate 2.5 mg /3 mL (0.083 %) solution for nebulization 2.5 mg inhalation Q4H PRN (Reason: Shortness Of Breath Or Wheezing) alprazolam 0.25 mg tablet 0.25 mg PO Q12H PRN (Reason: Anxiety) Lantus Solostar U-100 Insulin 100 unit/mL (3 mL) insulin pen 70 unit SUBCUT BID sucralfate 1 gram Tablet 1 g PO AC&BEDTIME Qty: 120 1RF pantoprazole 40 mg Tablet,Delayed Release (Dr/Ec) 40 mg PO BIDWM Qty: 60 0RF ferrous sulfate 325 mg (65 mg iron) Tablet 325 mg PO BIDWM Qty: 60 0RF prednisone 10 mg tablet See Taper PO DIRECTED Qty: 42 0RF Taper: predniSONE 60-10 60 mg Daily for 2 Days and 0 Hour 50 mg Daily for 2 Days and 0 Hour 40 mg Daily for 2 Days and 0 Hour 30 mg Daily for 2 Days and 0 Hour 20 mg Daily for 2 Days and 0 Hour 10 mg Daily for 2 Days and 0 Hour Rx Instructions: see taper instructions Discharge Orders: Discharge ED (Routine); Ordered 02/27/24 Ordered By: Lyle Villarreal Referrals: Elaine Topete PA [Primary Care Provider] - 1 week Patient Instructions: Altered Mental Status (ED), Anemia, COPD Activity Restrictions/Additional Instructions: Thank you for choosing [facility] for your healthcare needs today. Please realize that you were seen in the emergency department and that we are providing you with an emergency medical screening exam and this may not be a complete and all exclusive of all testing and/or medical workup we may need to determine your element or severity of your illness. It is very important that you follow-up as instructed with your primary care provider or specialist for the additional evaluation and to discuss your medical treatment plan. You may return to the emergency department should you have concerns or if your condition changes or worsens in any way. Coding Level of Care Code ED [employer] for Gema Hatfield
--- NOTE | 2024-02-27 02:01 | ECG_ITS ---
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 Measurements Intervals [place] Rate: 88 P: 0 MI: 0 QRS: 25 QRSD: 78 T: 73 QT: 362 QTc: 438 Interpretive Statements Normal sinus rhythm with a first-degree AV block LOW QRS VOLTAGE IN PRECORDIAL LEADS [QRS DEFLECTION < 1.0 mV IN CHEST LEADS] POSSIBLE ANTERIOR MYOCARDIAL INFARCTION , OF INDETERMINATE AGE [30 ms Q WAVE IN V3/V4, OR R < 0.2 mV IN V4] Compared to ECG 02/11/2024 07:43:17 Supraventricular rhythm now present Sinus rhythm no longer present Myocardial infarct finding still present Electronically Signed On 02-28-2024 0:15:49 CDT by Leonel Rodriguez M.D. [id number]
[2024-02-27 02:04] LABS: Basophils # 0.1 10^3/uL (0.0-0.1); Basophils % 0.5 %; Eosinophils # 0.2 10^3/uL (0.0-0.8); Eosinophils % 1.3 %; Hematocrit 27.4 % (36-47); Lymphocytes # 2.2 10^3/uL (0.8-4.8); Lymphocytes % 16.9 %; Mean Corpuscular HGB Conc 26.3 g/dL (30-55); Mean Corpuscular Hemoglobin 24.7 pg (27-33); Mean Corpuscular Volume 94.2 fl (85-98); Mean Platelet Volume 10.4 fL (7.4-10.4); Monocytes % 7.9 %; Neutrophils # 9.07 10^3/uL (1.8-7.7); Neutrophils % 70.7 %; Nucleated Red Blood Cells # 0.1 /100WBC; Nucleated Red Blood Cells % 0.8 %; Platelet Count 313 10^3/cmm (157-399); Red Blood Count 2.91 10^6/uL (3.85-5.65); Red Cell Distribution Width 16.2 % (12.1-15.1); White Blood Count 12.85 10^3/uL (3.29-11.43)
[2024-02-27 02:17] LABS: ABG PCO2 65.5 mmHg (35-45); ABG PH Result 7.43 (7.35-7.45); Alveolar-Arterial Oxygen Gradi 2.4 mmHg (5-10); Base Excess ABG 16.9 mmol/L (-2.0-2.0); Blood Gas Allen Test Pos; Blood Gas Sample Site Radial, right; Blood Gas Sample Type Arterial; Carboxyhemoglobin 2.7 %THgb (0.4-20.1); HCO3 ABG 43.2 mmol/L (22-26); HGB O2 Sat 84.9 % (95-100); Ionized Calcium Level - ABG 1.1 mmol/L (1.1-1.4); Methemoglobin 1.2 % (0.4-1.5); Oxygen Device NC; Oxygen Saturation ABG 88.4; PO2 ABG 53.4 mmHg (80.0-100.0); Potassium Level - ABG 3.6 mmol/L (3.5-5.0); Total Hemoglobin 7.5 g/dL (12-16)
[2024-02-27 02:24] LABS: Troponin(5th) Baseline 50 ng/L (0-10)
--- NOTE | 2024-02-27 02:28 | CTR_ITS ---
PROCEDURE INFORMATION: Exam: CT Head Without Contrast Exam date and time: 02/27/2024 3:02 AM Age: 78 years old Clinical indication: Altered mental status/memory loss; Additional info: AMS TECHNIQUE: Imaging protocol: Computed tomography of the head without contrast. Radiation optimization: All CT scans at this facility use at least one of these dose optimization techniques: automated exposure control; mA and/or kV adjustment per patient size (includes targeted exams where dose is matched to clinical indication); or iterative reconstruction. COMPARISON: CT head wo con* [id number] 01/24/2023 12:43 AM RADIATION DOSE METRICS: Total DLP (mGy-cm): 1061.7 FINDINGS: Brain: Encephalomalacia in the right parietal lobe again noted. No acute large territorial ischemic infarct. No acute intracranial hemorrhage. Subcortical and periventricular white matter hypoattenuation likely consistent with moderate chronic microvascular ischemic disease. Mild diffuse cerebral atrophy, consistent with patient's age. Cerebral ventricles: The ventricles are within normal limits. Paranasal sinuses: The visualized sinuses are unremarkable. Mastoid air cells: The visualized mastoid air cells are well aerated. Bones: Unremarkable. No acute fracture. Soft tissues: Unremarkable. CT/CT head wo con* [id number] IMPRESSION: 1. No acute intracranial abnormality identified. 2. Moderate chronic microvascular ischemic disease.
[2024-02-27 02:34] LABS: NT Pro B Type Natriuretic Pept 1232 pg/mL (0-450); Procalcitonin 0.31 ng/mL (0-0.5)
[2024-02-27 02:45] LABS: Alanine Aminotransferase 11 U/L (0-33); Alkaline Phosphatase 124 U/L (35-105); Anion Gap 9.8 (5-19); Aspartate Amino Transferase 12 U/L (0-32); Blood Urea Nitrogen 11 mg/dL (8-23); Calcium 8.2 mg/dL (8.5-10.5); Carbon Dioxide 40 mmol/L (22-29); Chloride 93 mmol/L (98-107); Creatinine Clr Calc Pharmacy 82.0728; Globulin 2.8 g/dL (1.3-4.6); Glucose 171 mg/dL (65-115); Magnesium 1.9 mg/dL (1.7-2.3); Osmolality Calculated 291 mOsm/kg (285-295); Potassium 3.8 mmol/L (3.5-5.1); Sodium 139 mmol/L (136-145); Total Bilirubin 0.3 mg/dL (0.15-1.2); Total Protein 5.8 g/dL (6.6-8.7)
[2024-02-27 03:00] LABS: Lactic Sepsis W/Reflex 1.8 mmol/L (0.5-2.2)
[2024-02-27 03:03] LABS: Charge for UA Resulting for Rev
[2024-02-27 03:06] LABS: Bilirubin Urine Negative (Negative); Blood Urine Negative (Negative); Glucose Urine UA Negative (Normal); Ketones Urine Negative (Negative); Leukocyte Esterase Urine Negative (Negative); Nitrate Urine Negative (Negative); Protein Urine 1+ (Negative); Urine Appearance Clear (CLEAR); Urine Color Yellow (Yellow)
[2024-02-27 03:08] LABS: Bacteria Urine None Seen /hpf; Hyaline Casts Urine 1.62 /lpf; RBC Urine 0-2 /hpf (0-2); Squamous Epithelial Cell Urine 0-5 /hpf (0-5); WBC Urine 0-5 /hpf (0-5)
--- NOTE | 2024-02-27 03:52 | ECG_ITS ---
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 Measurements Intervals [place] Rate: 82 P: 21 [place]: 215 QRS: 35 QRSD: 78 T: 87 QT: 373 QTc: 438 Interpretive Statements SINUS RHYTHM WITH FIRST DEGREE AV BLOCK LOW QRS VOLTAGE IN PRECORDIAL LEADS [QRS DEFLECTION < 1.0 mV IN CHEST LEADS] POSSIBLE ANTERIOR MYOCARDIAL INFARCTION , PROBABLY OLD [30 ms Q WAVE IN V3/V4, OR R < 0.2 mV IN V4] Compared to ECG 02/27/2024 02:01:51 First degree AV block now present Supraventricular rhythm no longer present Myocardial infarct finding still present Electronically Signed On 02-28-2024 0:21:49 CDT by Leonel Rodriguez M.D. [id number]
--- NOTE | 2024-02-27 04:26 | PC.NURSE ---
PT REQUESTS BEING REPOSTIONED. PT REPOSITIONED USING AVE PAD TO LEAN TO RIGHT SIDE.
== END 2024-02-27 11:03 | disposition home or self-care (01) ==
PROVIDERS: Emergency Provider Emergency Medicine; PCP Physician Assistant
DX: D64.9 Anemia, unspecified (principal); J44.9 Chronic obstructive pulmonary disease, unspecified; Z79.01 Long term (current) use of anticoagulants; Z79.4 Long term (current) use of insulin; Z87.891 Personal history of nicotine dependence; I50.30 Unspecified diastolic (congestive) heart failure; Z86.73 Personal history of transient ischemic attack (TIA), and cerebral infarction without residual deficits; E78.5 Hyperlipidemia, unspecified; E11.9 Type 2 diabetes mellitus without complications; I25.10 Atherosclerotic heart disease of native coronary artery without angina pectoris
CPT/HCPCS: 36415; 36600; 70450; 71045; 80051; 80053; 81003; 81015; 82330; 82805; 83605; 83735; 83880; 84145; 84484; 85025; 93005; 99285

== ENCOUNTER 2024-03-08 16:02 | Inpatient (IN) | payer MEDICARE, MEDICAID, SELFPAY ==
[2024-03-08] VITALS (15 sets, daily range): BP systolic 102–144; BP diastolic 66–83; PULSE 64–107; RESP 12–27; TEMP 36.8–36.9; O2SAT 90–98
--- NOTE | 2024-03-08 16:27 | XRR_ITS ---
PROCEDURE INFORMATION: Exam: XR Chest Exam date and time: 03/08/2024 5:27 PM Age: 78 years old Clinical indication: Shortness of breath; Patient HX: SOB; Additional info: Difficulty breathing TECHNIQUE: Imaging protocol: Radiologic exam of the chest. Views: 1 view. COMPARISON: CR XR chest 1V portable [id number] 02/27/2024 2:22 AM FINDINGS: Lungs: There is faint patchy infiltrate involving the left lung base. Right lung demonstrates no definite acute infiltrate. Pleural spaces: Unremarkable. No pleural effusion. No pneumothorax. Heart/Mediastinum: Unremarkable. No cardiomegaly. Bones/joints: Unremarkable. XR/XR chest 1V portable [id number] IMPRESSION: Left basilar pneumonia
--- NOTE | 2024-03-08 16:28 | ED_ITS ---
HPI - SOB/Dyspnea 2 General: Chief Complaint: Shortness of Breath/Dyspnea Stated Complaint: SOB Time Seen by Provider: 03/08/24 16:19 History of Present Illness: HPI Narrative: 78-year-old female with a history of [employer] D, congestive heart failure, atrial fibrillation, diabetes and morbid obesity who presents with shortness of breath which started yesterday. Patient states its gradually worsened. She has had symptoms associated chest tightness. Patient is very hard of hearing so history is difficult. She states she has had a productive cough with yellow sputum. She was given a nebulizer treatment at the [facility] and then another by EMS en route and she states she feels somewhat improved. She is chronically on nasal cannula oxygen, her baseline is 3 L. Upon arrival here, she is on 6 L saturating 93%. Patient does also have a history of chronic anemia. Related Data Home Medications Medication Instructions Recorded Confirmed apixaban 5 mg tablet (Eliquis) 5 mg PO BID 07/18/19 02/11/24 ropinirole 1 mg tablet 1 mg PO DAILY 07/18/19 02/11/24 docusate sodium 100 mg tablet 100 mg PO BID 01/06/20 02/11/24 (Stool Softener) ondansetron HCl 4 mg tablet 4 mg PO Q6H PRN Nausea 01/25/23 02/11/24 acetaminophen 325 mg tablet 650 mg PO Q4H PRN Pain OR FEVER 08/15/23 02/11/24 bisacodyl 10 mg rectal suppository 10 mg OR DAILY PRN Constipation 08/15/23 02/11/24 (Dulcolax (bisacodyl)) carboxymethylcellulose sodium 1 % 1 drp ophthalmic (eye) PRN DRY EYES 08/15/23 02/11/24 eye drops (Artificial Tears (carboxymethylcellulose)) duloxetine 60 mg capsule,delayed 60 mg PO DAILY 08/15/23 02/11/24 release hydrocodone 5 mg-acetaminophen 325 1 tab PO Q4H PRN Pain 08/15/23 02/11/24 mg tablet magnesium hydroxide 400 mg/5 mL 30 ml PO DAILY PRN Constipation 08/15/23 02/11/24 oral suspension (Milk of Magnesia) rosuvastatin 20 mg tablet 20 mg PO DAILY 08/15/23 02/11/24 sodium phosphates 19 gram-7 118 ml OR DAILY PRN Constipation 08/15/23 02/11/24 gram/118 mL enema (Fleet Enema) chlorhexidine gluconate 4 % See Rx Instructions .Route .COMPLEX 01/15/24 02/11/24 topical liquid (Hibiclens) cholecalciferol (vitamin D3) 1,250 1 mcg PO Q7D 01/15/24 02/11/24 mcg (50,000 unit) capsule diclofenac sodium 1 % topical gel See Rx Instructions .Route .COMPLEX 01/15/24 02/11/24 insulin lispro 100 unit/mL See Rx Instructions .Route .COMPLEX 01/15/24 02/11/24 subcutaneous pen (Humalog KwikPen (U-100) Insulin) mupirocin 2 % topical ointment 1 applic topical DAILY 01/15/24 02/11/24 nystatin 100,000 unit/gram topical 1 applic topical BID PRN SKIN 01/15/24 02/11/24 powder REDNESS albuterol sulfate 2.5 mg/3 mL 2.5 mg inhalation Q4H PRN 02/11/24 02/11/24 (0.083 %) solution for nebulization Shortness Of Breath Or Wheezing alprazolam 0.25 mg tablet 0.25 mg PO Q12H PRN Anxiety 02/11/24 02/11/24 insulin glargine 100 unit/mL (3 70 unit SUBCUT BID 02/11/24 02/11/24 mL) subcutaneous pen (Lantus Solostar U-100 Insulin) Previous Rx's Medication Instructions Recorded albuterol sulfate 90 mcg/actuation 1 inh inhalation Q6H PRN shortness 02/02/23 aerosol inhaler of breath or wheezing #8.5 grams fluticasone fur. 100 mcg-umeclid 1 inh inhalation DAILY #60 ea 02/02/23 62.5 mcg-vilant 25 mcg inhalat.powder (Trelegy Ellipta) magnesium oxide 400 mg (241.3 mg 400 mg PO BID #6 tabs 02/02/23 magnesium) tablet diltiazem HCl 180 mg 180 mg PO DAILY #30 caps 08/16/23 capsule,extended release 24 hr (Cardizem CD) furosemide 20 mg tablet (Lasix) 40 mg (2 x 20 mg) PO QAM 30 days 01/21/24 #60 tabs ferrous sulfate 325 mg (65 mg 325 mg PO BIDWM #60 tabs 02/13/24 iron) tablet pantoprazole 40 mg tablet,delayed 40 mg PO BIDWM #60 tabs 02/13/24 release prednisone 10 mg tablet See Taper PO DIRECTED #42 tabs 02/13/24 sucralfate 1 gram tablet 1 g PO AC&BEDTIME #120 tabs 02/13/24 cefuroxime axetil 250 mg tablet 250 mg PO BID 7 days #14 tabs 03/08/24 prednisone 50 mg tablet 50 mg PO DAILY 5 days #5 tabs 03/08/24 Allergies Allergy/AdvReac Type Severity Reaction Status Date / Time morphine Allergy ALGY-Rash Verified 02/27/24 01:53 quinine Allergy ALGY-Rash Verified 02/27/24 01:53 Sulfa (Sulfonamide Allergy ALGY-Rash Verified 02/27/24 01:53 Antibiotics) Penicillins AdvReac ALGY-Rash Verified 02/27/24 01:53 Review of Systems 2 General: Reports: 10 or more systems reviewed and unremarkable except in HPI and below PFSH ED 2 PFSH: Medical History Pneumonia Heart failure with preserved left ventricular function History of echocardiogram 08/2023 technically difficult study due to poor ultrasonic windows, grossly normal LV systolic function, grade 1 diastolic dysfunction, mild MR, mild TR, left atrial dilitation Osteoporosis DEXA 09/2023 Right femoral neck T score -4.2 and Z score -0.3; L spine T score 0.2, Z score 0.9, fracture risk 10 yr probability 45%, hip fracture 22.9% ESBL 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 difficile colitis Gastroesophageal reflux disease Hyperlipidemia On apixaban therapy History of ESBL E. coli infection History of MRSA infection History of small bowel obstruction Medically managed to date Diabetes mellitus Coronary artery disease HTN (hypertension), malignant COPD (chronic obstructive pulmonary disease) Morbid obesity Surgical History History of colonoscopy (~2013) History of bladder suspension procedure History of orthopedic surgery Wrist and left leg History of cholecystectomy History of tubal ligation History of appendectomy Family History Other CAD (coronary artery disease) Cancer Social History Smoking and tobacco/nicotine status: former use of tobacco/nicotine Quit status (tobacco/nicotine): has quit using Alcohol intake: never Substance/Drug Use: never Caregiver/support person: Yes (Son ) Housing: Custodial Physical Exam 2 Const: COMMON NORMALS: no acute distress, alert and well nourished GENERAL APPEARANCE: cooperative ORIENTATION/CONSCIOUSNESS: Yes awake OTHER: Morbidly obese and hard of hearing 78-year-old female in no acute distress HENMT: COMMON NORMALS: normocephalic and atraumatic HEAD & SCALP: n ormocephalic and atraumatic Eye: COMMON NORMALS: conjunctivae normal CONJUNCTIVA: Yes conjunctivae normal Neck/C-Spine: GENERAL: Yes normal visual inspection Resp: EFFORT & INSPECTION: Yes tachypneic (Crackles in the lung bases bilaterally) and Yes uses accessory muscles AUSCULTATION: wheezes and diminished lung sounds Cardio: COMMON NORMALS: Peripheral pulses 2+ throughout RATE: tachycardic RHYTHM: other (Irregularly irregular) PERIPHERAL PULSES: Peripheral pulses 2+ throughout GI: COMMON NORMALS: Soft to palpation and non-tender PALPATION: Yes Soft to palpation Extremity: COMMON NORMALS: full ROM GENERAL: Yes edema Neuro: COMMON NORMALS: no focal motor deficits SENSORIUM/ORIENTATION: Yes alert Skin: COMMON NORMALS: no rashes or lesions noted GENERAL SKIN EXAM: no rashes or lesions noted Course 2 ED course: Patient has had an IV placed and labs obtained. She has had serial EKGs performed as well as serial troponin levels. She has been given Lasix 40 mg IV as well as Solu-Medrol 125 mg IV. She was given a DuoNeb nebulizer treatment. Her chest x-ray per my interpretation shows no significant infiltrate or evidence of significant volume overload. Her EKGs, she is in atrial fibrillation, rate controlled, no acute ischemic changes per my interpretation. Laboratory studies, she has stable troponin levels. Her the laboratory studies are stable for the patient. Her hemoglobin is 9.2, increased from 7 from a recent ED visit. Attempted to titrate the patient down to her baseline 3 L of nasal cannula oxygen but she desaturates to 82%. She has been turned back up to 6 L to get her saturations above 92. Will repeat a nebulizer treatment. The patient will likely need admission Reevaluation(s): Time: 20:05 Vital Signs: Vital signs: Vital Signs Temperature 98.4 F 03/08/24 16:05 Pulse Rate 94 03/08/24 20:06 Respiratory Rate 18 03/08/24 20:06 Blood Pressure 107/70 03/08/24 17:45 Pulse Oximetry 93 03/08/24 20:06 Oxygen Delivery Me thod Nasal Cannula 03/08/24 20:06 Oxygen Flow Rate 5 03/08/24 20:06 MDM - SOB/Dyspnea Medical Decision Making 78-year-old female who comes in with a 2-day history of progressively worsening shortness of breath. The patient does have a history of COPD as well as a history of congestive heart failure. She does have crackles in the lung bases as well as wheezing in the upper lobes. Will give her IV Solu-Medrol and another DuoNeb nebulizer treatment. Will also give her IV Lasix. Will obtain a chest x-ray, laboratory studies including troponin and BNP as well as a D-dimer and a COVID test. Chest x-ray does show a left lower lobe infiltrate. Patient is been given IV cefepime and IV vancomycin for healthcare acquired pneumonia given the patient's recent hospitalization. Discussed with the hospitalist because of persistent hypoxia and concern for respiratory failure. Will place the patient in observation admission. Differential Diagnosis Likely acute exacerbation of chronic obstructive airways disease, congestive heart failure, community acquired pneumonia and pulmonary embolism Medical Records Per old charts, the patient was admitted February 10 for anemia and a COPD exacerbation. She was transfused at that time. Discharged home on a steroid taper. Lab Data 03/08/24 16:44 03/08/24 16:44 Labs/Radiology: Radiology Impressions Chest X-Ray 03/08/24 16:27 IMPRESSION: Left basilar pneumonia Laboratory Results WBC 11.24 10^3/uL (3.29-11.43) 03/08/24 16:44 RBC 3.60 10^6/uL (3.85-5.65) L 03/08/24 16:44 Hgb 9.20 g/dL (11.27-16.99) L 03/08/24 16:44 Hct 34.7 % (36-47) L 03/08/24 16:44 MCV 96.4 fl (85-98) 03/08/24 16:44 MCH 25.6 pg (27-33) L 03/08/24 16:44 MCHC 26.5 g/dL (30-55) L 03/08/24 16:44 RDW 19.9 % (12.1-15.1) H 03/08/24 16:44 Plt Count 315 10^3/cmm (157-399) 03/08/24 16:44 MPV 10.8 fL (7.4-10.4) H 03/08/24 16:44 Neut % (Auto) 67.2 % 03/08/24 16:44 Lymph % (Auto) 21.1 % 03/08/24 16:44 Dougherty % (Auto) 8.0 % 03/08/24 16:44 Eos % (Auto) 1.7 % 03/08/24 16:44 Baso % (Auto) 0.8 % 03/08/24 16:44 Neut # (Auto) 7.56 10^3/uL (1.8-7.7) 03/08/24 16:44 Lymph # (Auto) 2.4 10^3/uL (0.8-4.8) 03/08/24 16:44 Dougherty # (Auto) 0.9 10^3/uL (0.2-0.9) 03/08/24 16:44 Eos # (Auto) 0.2 10^3/uL (0.0-0.8) 03/08/24 16:44 Baso # (Auto) 0.1 10^3/uL (0.0-0.1) 03/08/24 16:44 Nucleated RBC % (auto) 0.2 % 03/08/24 16:44 Nucleated RBCs # 0.0 /100WBC 03/08/24 16:44 D-Dimer 0.86 ug/mLFEU (0-0.59) H 03/08/24 16:44 Specimen Type Arterial 03/08/24 16:54 Sample Site Brachial, left 03/08/24 16:54 ABG pH 7.47 (7.35-7.45) H 03/08/24 16:54 ABG pCO2 58.5 mmHg (35-45) H 03/08/24 16:54 ABG pO2 49.3 mmHg (80.0-100.0) L 03/08/24 16:54 ABG PO2/FiO2 Ratio 112 03/08/24 16:54 ABG HCO3 42.4 mmol/L (22-26) H 03/08/24 16:54 ABG Base Excess 16.6 mmol/L (-2.0-2.0) H 03/08/24 16:54 Monico Test N/a 03/08/24 16:54 Hematocrit 27.5 % (37-47) L 03/08/24 16:54 Hgb O2 Saturation 83.9 % (95-100) L 03/08/24 16:54 Carboxyhemoglobin 2.7 %THgb (0.4-20.1) 03/08/24 16:54 Methemoglobin 0.3 % (0.4-1.5) L 03/08/24 16:54 Total Hemoglobin 9.0 g/dL (12-16) L 03/08/24 16:54 O2 Delivery Device Nc 03/08/24 16:54 O2 Liters/Min 5.0 % 03/08/24 16:54 FiO2 44.0 % 03/08/24 16:54 Chain Maker Hand ID Ck 03/08/24 16:54 Sodium 140 mmol/L (136-145) 03/08/24 16:44 Potassium 4.1 mmol/L (3.5-5.1) 03/08/24 16:44 Chloride 92 mmol/L (98-107) L 03/08/24 16:44 Carbon Dioxide 40 mmol/L (22-29) H 03/08/24 16:44 Anion Gap 12.1 (5-19) 03/08/24 16:44 BUN 11 mg/dL (8-23) 03/08/24 16:44 Creatinine 0.8 mg/dL (0.5-0.9) 03/08/24 16:44 GFR Calculation Not Reportable 03/08/24 16:44 Glucose 207 mg/dL (65-115) H 03/08/24 16:44 Calculated Osmolality 295 mOsm/kg (285-295) 03/08/24 16:44 Lactic Acid 3.5 mmol/L (0.5-2.2) H 03/08/24 16:44 Lactic Acid (Sepsis) 2.2 mmol/L (0.5-2.2) 03/08/24 19:49 Calcium 8.7 mg/dL (8.5-10.5) 03/08/24 16:44 Magnesium 1.9 mg/dL (1.7-2.3) 03/08/24 16:44 Total Bilirubin 0.3 mg/dL (0.15-1.2) 03/08/24 16:44 AST 15 U/L (0-32) 03/08/24 16:44 ALT 10 U/L (0-33) 03/08/24 16:44 Alkaline Phosphatase 117 U/L (35-105) H 03/08/24 16:44 Troponin T Baseline 50 ng/L (0-10) H 03/08/24 16:44 Troponin T 120 Minute 47.39 ng/L (0-10) H 03/08/24 18:52 Delta Troponin T -2.61 ABS# (0-10) L 03/08/24 18:52 NT-Pro-B Natriuret Pep 866 pg/mL (0-450) H 03/08/24 16:44 Total Protein 5.8 g/dL (6.6-8.7) L 03/08/24 16:44 Albumin 3.2 g/dL (3.5-5.2) L 03/08/24 16:44 Globulin 2.6 g/dL (1.3-4.6) 03/08/24 16:44 Coronavirus 229E (PCR) Not detected (NOT DETECT) 03/08/24 17:15 SARS-CoV-2 (PCR) Not detected (NOT DETECT) 03/08/24 17:15 All radiology interpretation(s) finalized by discharge ED provider radiology interpretation(s): Chest x-ray per my interpretation, possible left lower lobe infiltrate EKG Data EKG 1: I personally reviewed and interpreted this EKG as follows: EKG Interpretation Date: 03/08/24 EKG interpretation time: 16:34 Interpretation: Atrial fibrillation, nonspecific ST segment changes, nonischemic in nature, old inferior MS Other EKG Comments: Unchanged from previous EKG EKG 2: I personally reviewed and interpreted this EKG as follows: EKG Interpretation Date: 03/08/24 EKG interpretation time: 18:54 Interpretation: Normal sinus rhythm, first-degree AV block, no ST segment elevation or depression, inferior Q waves Critical Care Time 2 Critical Care Time: Critical Care Time: Yes Total Critical Care Time: 45 Attestation: Critical care time includes interviewing the patient as well as the family. Time also includes ordering tests as well as evaluation of the results, reviewing old charts and reexamination of the patient Discharge Plan Discharge Patient Disposition: Placed in Observation Clinical Impression: Acute exacerbation of chronic obstructive airways disease, Congestive heart failure, Anemia, Hypoxia, Pneumonia Condition: Stable Prescriptions: New prednisone 50 mg tablet 50 mg PO DAILY 5 Days Qty: 5 0RF cefuroxime axetil 250 mg tablet 250 mg PO BID 7 Days Qty: 14 0RF No Action ropinirole 1 mg Tablet 1 mg PO DAILY Eliquis 5 mg Tablet 5 mg PO BID Hold Instructions: Resume on 08/30/23. docusate sodium [Stool Softener] 100 mg Tablet 100 mg PO BID ondansetron HCl 4 mg Tablet 4 mg PO Q6H PRN (Reason: Nausea) magnesium oxide 400 mg (241.3 mg magnesium) Tablet 400 mg PO BID Qty: 6 0RF Trelegy Ellipta 100-62.5-25 mcg blister with device 1 inh inhalation DAILY Qty: 60 0RF albuterol sulfate 90 mcg/actuation HFA aerosol inhaler 1 inh inhalation Q6H PRN (Reason: shortness of breath or wheezing) Qty: 8.5 0RF acetaminophen 325 mg Tablet 650 mg PO Q4H PRN (Reason: Pain OR FEVER) hydrocodone-acetaminophen 5-325 mg tablet 1 tab PO Q4H PRN (Reason: Pain) magnesium hydroxide [Milk of Magnesia] 400 mg/5 mL Suspension 30 ml PO DAILY PRN (Reason: Constipation) bisacodyl [Dulcolax (bisacodyl)] 10 mg Suppository 10 mg OR DAILY PRN (Reason: Constipation) Fleet Enema 19-7 gram/118 mL Enema 118 ml OR DAILY PRN (Reason: Constipation) rosuvastatin 20 mg tablet 20 mg PO DAILY duloxetine 60 mg capsule,delayed release(DR/EC) 60 mg PO DAILY Artificial Tears (cmc) 1 % Drops 1 drp OPHTHALMIC (EYE) PRN diltiazem HCl [Cardizem CD] 180 mg capsule,extended release 24hr 180 mg PO DAILY Qty: 30 0RF mupirocin 2 % Ointment 1 applic TOPICAL DAILY Rx Instructions: nares, q6d nystatin 100,000 unit/gram Powder 1 applic TOPICAL BID PRN (Reason: SKIN REDNESS) chlorhexidine gluconate [Hibiclens] 4 % Liquid See Rx Instructions .ROUTE .COMPLEX Rx Instructions: APPLY TOPICALLY ALL OVER BODY EXCEPT FACE, EVERY 6 DAYS. insulin lispro [Humalog KwikPen Insulin] 100 unit/mL Insulin Pen See Rx Instructions .ROUTE .COMPLEX Rx Instructions: INJECT 20 UNITS 3 TIMES DAILY PLUS SLIDING SCALE: BS 150-200=0 UNITS, 201- 250=2 UNITS, 251-300=4 UNITS, 301-350=6 UNITS, 351-400=8 UNITS. cholecalciferol (vitamin D3) 1,250 mcg (50,000 unit) Capsule 1 mcg PO Q7D Rx Instructions: ON SUNDAY diclofenac sodium 1 % Gel See Rx Instructions .ROUTE .COMPLEX Rx Instructions: APPLY 4G TOPICALLY TO RIGHT KNEW EVERY 12 HOURS NEEDED FOR PAIN. furosemide [Lasix] 20 mg tablet 40 mg PO QAM 30 Days Qty: 60 0RF albuterol sulfate 2.5 mg /3 mL (0.083 %) solution for nebulization 2.5 mg inhalation Q4H PRN (Reason: Shortness Of Breath Or Wheezing) alprazolam 0.25 mg tablet 0.25 mg PO Q12H PRN (Reason: Anxiety) Lantus Solostar U-100 Insulin 100 unit/mL (3 mL) insulin pen 70 unit SUBCUT BID sucralfate 1 gram Tablet 1 g PO AC&BEDTIME Qty: 120 1RF pantoprazole 40 mg Tablet,Delayed Release (Dr/Ec) 40 mg PO BIDWM Qty: 60 0RF ferrous sulfate 325 mg (65 mg iron) Tablet 325 mg PO BIDWM Qty: 60 0RF prednisone 10 mg tablet See Taper PO DIRECTED Qty: 42 0RF Taper: predniSONE 60-10 60 mg Daily for 2 Days and 0 Hour 50 mg Daily for 2 Days and 0 Hour 40 mg Daily for 2 Days and 0 Hour 30 mg Daily for 2 Days and 0 Hour 20 mg Daily for 2 Days and 0 Hour 10 mg Daily for 2 Days and 0 Hour Rx Instructions: see taper instructions Discharge Orders: Discharge ED (Routine); Ordered 03/08/24 Ordered By: Radha Johns Referrals: Elaine Topete PA [Primary Care Provider] - Patient Instructions: COPD (Chronic Obstructive Pulmonary Disease) (ED), Opioid Safety, Pain Management Activity Restrictions/Additional Instructions: Take the prednisone daily for the next 5 days. Take the Ceftin twice daily until gone. Use your nebulizer every 4 hours as needed. Continue your other regular medications. Return if your symptoms worsen. Follow-up next week with your primary care provider Coding Level of Care Code ED Medical Instrument Cable Fabricator for Gema Hatfield
--- NOTE | 2024-03-08 16:31 | ECG_ITS ---
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 Measurements Intervals [place] Rate: 104 P: 0 CA: 0 QRS: -13 QRSD: 73 T: 67 QT: 341 QTc: 449 Interpretive Statements SUPRAVENTRICULAR TACHYCARDIA LOW QRS VOLTAGE IN PRECORDIAL LEADS [QRS DEFLECTION < 1.0 mV IN CHEST LEADS] ANTERIOR MYOCARDIAL INFARCTION , OF INDETERMINATE AGE [40+ ms Q WAVE AND/OR ST/T ABNORMALITY IN V3/V4] INFERIOR MYOCARDIAL INFARCTION , PROBABLY OLD [40+ ms Q WAVE AND/OR ST/T ABNORMALITY IN II/aVF] Compared to ECG 02/27/2024 04:01:45 Sinus rhythm no longer present First degree AV block no longer present Myocardial infarct finding still present Electronically Signed On 03-08-2024 21:54:08 CDT by López Romero M.D. [email or web address]
[2024-03-08 16:55] LABS: Basophils # 0.1 10^3/uL (0.0-0.1); Basophils % 0.8 %; Eosinophils # 0.2 10^3/uL (0.0-0.8); Eosinophils % 1.7 %; Hematocrit 34.7 % (36-47); Lymphocytes # 2.4 10^3/uL (0.8-4.8); Lymphocytes % 21.1 %; Mean Corpuscular HGB Conc 26.5 g/dL (30-55); Mean Corpuscular Hemoglobin 25.6 pg (27-33); Mean Corpuscular Volume 96.4 fl (85-98); Mean Platelet Volume 10.8 fL (7.4-10.4); Monocytes # 0.9 10^3/uL (0.2-0.9); Neutrophils # 7.56 10^3/uL (1.8-7.7); Neutrophils % 67.2 %; Nucleated Red Blood Cells % 0.2 %; Platelet Count 315 10^3/cmm (157-399); Red Cell Distribution Width 19.9 % (12.1-15.1); White Blood Count 11.24 10^3/uL (3.29-11.43)
[2024-03-08] MEDS: ipratropium-albuterol 3 mL Neb INHALATION ×3 (16:59→23:57)
[2024-03-08] MEDS: methylPREDNISolone sod succ 125 mg/2 mL INJ IV (17:02)
[2024-03-08] MEDS: FUROsemide 10 mg/mL SDV 4mL 40 MG IVP (17:02)
[2024-03-08 17:04] LABS: ABG PCO2 58.5 mmHg (35-45); ABG PH Result 7.47 (7.35-7.45); Arterial Blood Gas Hematocrit 27.5 % (37-47); Base Excess ABG 16.6 mmol/L (-2.0-2.0); Blood Gas Operator Identificat CK; Blood Gas Sample Site Brachial, left; Blood Gas Sample Type Arterial; Carboxyhemoglobin 2.7 %THgb (0.4-20.1); HCO3 ABG 42.4 mmol/L (22-26); HGB O2 Sat 83.9 % (95-100); Methemoglobin 0.3 % (0.4-1.5); Oxygen Device NC; PO2 ABG 49.3 mmHg (80.0-100.0); PO2 FiO2 Ratio Arterial Blood 112
[2024-03-08 17:11] LABS: D Dimer 0.86 ug/mLFEU (0-0.59)
[2024-03-08 17:14] LABS: Troponin(5th) Baseline 50 ng/L (0-10)
[2024-03-08 17:18] LABS: Lactic Sepsis W/Reflex 3.5 mmol/L (0.5-2.2)
[2024-03-08 17:22] LABS: Alanine Aminotransferase 10 U/L (0-33); Albumin Level 3.2 g/dL (3.5-5.2); Alkaline Phosphatase 117 U/L (35-105); Anion Gap 12.1 (5-19); Aspartate Amino Transferase 15 U/L (0-32); Blood Urea Nitrogen 11 mg/dL (8-23); Calcium 8.7 mg/dL (8.5-10.5); Carbon Dioxide 40 mmol/L (22-29); Chloride 92 mmol/L (98-107); Globulin 2.6 g/dL (1.3-4.6); Glucose 207 mg/dL (65-115); Magnesium 1.9 mg/dL (1.7-2.3); NT Pro B Type Natriuretic Pept 866 pg/mL (0-450); Osmolality Calculated 295 mOsm/kg (285-295); Potassium 4.1 mmol/L (3.5-5.1); Sodium 140 mmol/L (136-145); Total Bilirubin 0.3 mg/dL (0.15-1.2); Total Protein 5.8 g/dL (6.6-8.7)
--- NOTE | 2024-03-08 18:31 | ECG_ITS ---
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 Measurements Intervals [place] Rate: 94 P: 103 IN: 232 QRS: -3 QRSD: 75 T: 73 QT: 353 QTc: 441 Interpretive Statements SINUS RHYTHM WITH FIRST DEGREE AV BLOCK LOW QRS VOLTAGE IN PRECORDIAL LEADS [QRS DEFLECTION < 1.0 mV IN CHEST LEADS] Compared to ECG 03/08/2024 16:34:55 First degree AV block now present Supraventricular tachycardia no longer present Myocardial infarct finding no longer present Electronically Signed On 03-08-2024 21:54:43 CDT by López Romero M.D. [id number]
[2024-03-08 18:38] LABS: Reflex Lactate Order REFLEX LACTIC ORDERD
[2024-03-08 19:17] LABS: Adenovirus Not Detected (NOT DETECT); Chlamydia Pneumoniae Not Detected (NOT DETECT); Coronavirus 229E,HKU1,NL63,OC4 Not Detected (NOT DETECT); Human Metapneumovirus Not Detected (NOT DETECT); Human Rhinovirus/Enterovirus Not Detected (NOT DETECT); Influenza A Not Detected (NOT DETECT); Influenza A H1 Not Detected (NOT DETECT); Influenza A H1-2009 Not Detected (NOT DETECT); Influenza A H3 Not Detected (NOT DETECT); Influenza B Not Detected (NOT DETECT); Mycoplasma Pneumoniae Not Detected (NOT DETECT); Parainfluenza Virus Type 1 Not Detected (NOT DETECT); Parainfluenza Virus Type 2 Not Detected (NOT DETECT); Parainfluenza Virus Type 3 Not Detected (NOT DETECT); Parainfluenza Virus Type 4 Not Detected (NOT DETECT); Respiratory Syncytial Virus A Not Detected (NOT DETECT); Respiratory Syncytial Virus B Not Detected (NOT DETECT); SARS-COV-2 Not Detected (NOT DETECT)
[2024-03-08 19:22] LABS: Troponin 5 2HR 47.39 ng/L (0-10)
[2024-03-08 19:24] LABS: Troponin 5 2HR Delta -2.61 ABS# (0-10)
[2024-03-08 20:09] LABS: Lactic Acid level (Lactate) 2.2 mmol/L (0.5-2.2)
--- NOTE | 2024-03-08 20:55 | P.HP_ITS ---
Providers/Chief Complaint 2 Primary Care Provider: Elaine Topete Chief Complaint: SOB History of Present Illness Purvi Sparks is a 78 year old female with a past medical history seen [facility] again for COPD with chronic hypoxic respiratory failure on 4 L baseline, heart failure with preserved ejection fraction, chronic atrial fibrillation, chronic pain syndrome, restless leg syndrome, type 2 diabetes mellitus, coronary artery disease, hypertension, morbid obesity, and multiple other comorbidities who presents with shortness of breath. Patient reports onset on Wednesday 03/07. She endorses associated chest tightness, wheezing, and pleurisy. She describes her cough as mostly nonproductive with occasional yellow sputum production. Reports exertion worsens her symptoms. Rest improves. Baseline oxygen requirements of 4 L. In the emergency department, patient was found to require increased level of oxygen. She is currently requiring 6 L. Chest x-ray was concerning for left sided pneumonia. She was started on antibiotics. Review of Systems 2 Narrative: A complete review of systems was obtained and is negative except as stated in HPI. Medications/Allergies Home Medications Medication Instructions Recorded Confirmed Last Taken Type apixaban 5 mg tablet (Eliquis) 5 mg PO BID 07/18/19 02/11/24 01/15/24 History ropinirole 1 mg tablet 1 mg PO DAILY 07/18/19 02/11/24 01/14/24 History docusate sodium 100 mg tablet 100 mg PO BID 01/06/20 02/11/24 01/15/24 History (Stool Softener) ondansetron HCl 4 mg tablet 4 mg PO Q6H PRN Nausea 01/25/23 02/11/24 Unknown History albuterol sulfate 90 mcg/actuation 1 inh inhalation Q6H PRN shortness 02/02/23 02/11/24 01/14/24 Rx aerosol inhaler of breath or wheezing #8.5 grams fluticasone fur. 100 mcg-umeclid 1 inh inhalation DAILY #60 ea 02/02/23 02/11/24 01/15/24 Rx 62.5 mcg-vilant 25 mcg inhalat.powder (Trelegy Ellipta) magnesium oxide 400 mg (241.3 mg 400 mg PO BID #6 tabs 02/02/23 02/11/24 01/15/24 Rx magnesium) tablet acetaminophen 325 mg tablet 650 mg PO Q4H PRN Pain OR FEVER 08/15/23 02/11/24 01/11/24 History bisacodyl 10 mg rectal suppository 10 mg TX DAILY PRN Constipation 08/15/23 02/11/24 Unknown History (Dulcolax (bisacodyl)) carboxymethylcellulose sodium 1 % 1 drp ophthalmic (eye) PRN DRY EYES 08/15/23 02/11/24 Unknown History eye drops (Artificial Tears (carboxymethylcellulose)) duloxetine 60 mg capsule,delayed 60 mg PO DAILY 08/15/23 02/11/24 01/15/24 History release hydrocodone 5 mg-acetaminophen 325 1 tab PO Q4H PRN Pain 08/15/23 02/11/24 01/11/24 History mg tablet magnesium hydroxide 400 mg/5 mL 30 ml PO DAILY PRN Constipation 08/15/23 02/11/24 Unknown History oral suspension (Milk of Magnesia) rosuvastatin 20 mg tablet 20 mg PO DAILY 08/15/23 02/11/24 01/14/24 History sodium phosphates 19 gram-7 118 ml TX DAILY PRN Constipation 08/15/23 02/11/24 Unknown History gram/118 mL enema (Fleet Enema) diltiazem HCl 180 mg 180 mg PO DAILY #30 caps 08/16/23 02/11/24 01/15/24 Rx capsule,extended release 24 hr (Cardizem CD) chlorhexidine gluconate 4 % See Rx Instructions .Route .COMPLEX 01/15/24 02/11/24 01/10/24 History topical liquid (Hibiclens) cholecalciferol (vitamin D3) 1,250 1 mcg PO Q7D 01/15/24 02/11/24 01/10/24 History mcg (50,000 unit) capsule diclofenac sodium 1 % topical gel See Rx Instructions .Route .COMPLEX 01/15/24 02/11/24 Unknown History insulin lispro 100 unit/mL See Rx Instructions .Route .COMPLEX 01/15/24 02/11/24 01/15/24 History subcutaneous pen (Humalog KwikPen (U-100) Insulin) mupirocin 2 % topical ointment 1 applic topical DAILY 01/15/24 02/11/24 Unknown History nystatin 100,000 unit/gram topical 1 applic topical BID PRN SKIN 01/15/24 02/11/24 Unknown History powder REDNESS furosemide 20 mg tablet (Lasix) 40 mg (2 x 20 mg) PO QAM 30 days 01/21/24 02/11/24 01/15/24 Rx #60 tabs albuterol sulfate 2.5 mg/3 mL 2.5 mg inhalation Q4H PRN 02/11/24 02/11/24 Unknown History (0.083 %) solution for nebulization Shortness Of Breath Or Wheezing alprazolam 0.25 mg tablet 0.25 mg PO Q12H PRN Anxiety 02/11/24 02/11/24 Unknown History insulin glargine 100 unit/mL (3 70 unit SUBCUT BID 02/11/24 02/11/24 Unknown History mL) subcutaneous pen (Lantus Solostar U-100 Insulin) ferrous sulfate 325 mg (65 mg 325 mg PO BIDWM #60 tabs 02/13/24 02/11/24 01/15/24 Rx iron) tablet pantoprazole 40 mg tablet,delayed 40 mg PO BIDWM #60 tabs 02/13/24 02/11/24 01/15/24 Rx release prednisone 10 mg tablet See Taper PO DIRECTED #42 tabs 02/13/24 Unknown Rx sucralfate 1 gram tablet 1 g PO AC&BEDTIME #120 tabs 02/13/24 Unknown Rx cefuroxime axetil 250 mg tablet 250 mg PO BID 7 days #14 tabs 03/08/24 Unknown Rx prednisone 50 mg tablet 50 mg PO DAILY 5 days #5 tabs 03/08/24 Unknown Rx Allergies Allergy/AdvReac Type Severity Reaction Status Date / Time morphine Allergy ALGY-Rash Verified 02/27/24 01:53 quinine Allergy ALGY-Rash Verified 02/27/24 01:53 Sulfa (Sulfonamide Allergy ALGY-Rash Verified 02/27/24 01:53 Antibiotics) Penicillins AdvReac ALGY-Rash Verified 02/27/24 01:53 PFSH Acute 2 PFSH: Medical History (Updated 03/08/24 @ 21:37 by Gato Nguyen MD) Hypoxia Pneumonia Heart failure with preserved left ventricular function History of echocardiogram 08/2023 technically difficult study due to poor ultrasonic windows, grossly normal LV systolic function, grade 1 diastolic dysfunction, mild MR, mild TR, left atrial dilitation Osteoporosis DEXA 09/2023 Right femoral neck T score -4.2 and Z score -0.3; L spine T score 0.2, Z score 0.9, fracture risk 10 yr probability 45%, hip fracture 22.9% ESBL 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 difficile colitis Gastroesophageal reflux disease Hyperlipidemia On apixaban therapy History of ESBL E. coli infection History of MRSA infection History of small bowel obstruction Medically managed to date Diabetes mellitus Coronary artery disease HTN (hypertension), malignant COPD (chronic obstructive pulmonary disease) Morbid obesity Surgical History History of colonoscopy (~2013) History of bladder suspension procedure History of orthopedic surgery Wrist and left leg History of cholecystectomy History of tubal ligation History of appendectomy Family History Other CAD (coronary artery disease) Cancer Social History Smoking and tobacco/nicotine status: former use of tobacco/nicotine Quit status (tobacco/nicotine): has quit using Alcohol intake: never Substance/Drug Use: never Caregiver/support person: Yes (Son ) Housing: Intermediate Vitals/I&O/Wt Last Vital Signs Temp 98.4 F 03/08/24 16:05 Pulse 93 03/08/24 20:26 Resp 20 H 03/08/24 20:26 BP 121/66 03/08/24 20:26 Pulse Ox 96 03/08/24 20:26 O2 Del Method Nasal Cannula 03/08/24 20:06 O2 Flow Rate 5 03/08/24 20:06 Physical Exam 2 Narrative: General: Patient is awake and alert. Chronically ill-appearing. Head: Normocephalic. Atraumatic. EOM intact. Slightly hard of hearing. Neck: JVD is difficult to assess due to body habitus. Cardiovascular: RRR. No gallops. No murmurs. Nonpitting bilateral lower extremity edema is present. Lungs: Breath sounds are distant. There is faint rhonchi in the left lung. There is faint end expiratory wheezing. Conversational dyspnea is present. Skin: No jaundice. No rashes. Abdomen: Normal bowel sounds, abdomen soft and nontender. Genito Urinary: Genital exam not performed since complaints not related. Rectal: Rectal exam not performed since no symptoms indicated blood loss. Extremities: No cyanosis or clubbing. Musculoskeletal: No swollen or erythematous joints. Neurological: Moves all 4 extremities. No myoclonus. Data 03/08/24 16:44 03/08/24 16:44 A&P Assessment and plan (1) Acute exacerbation of chronic obstructive airways disease: Acute COPD exacerbation Acute on chronic hypoxic respiratory failure secondary to COPD and pneumonia Start Solu-Medrol Pulmicort Scheduled DuoNebs Encourage pulmonary toilet (2) Pneumonia: Left-sided pneumonia on imaging Start cefepime and vancomycin due to recent hospitalizations and IV antibiotic exposure MRSA screen Check procal Sputum culture requested (3) Anemia: Recent admission for anemia requiring transfusion noted Monitor blood counts closely Qualifiers: Anemia type: unspecified type Qualified Code(s): D64.9 - Anemia, unspecified (4) Congestive heart failure: Chronic heart failure with preserved ejection fraction Patient does not appear to be in exacerbation currently Strict I's and O's Daily weights Daily assessment of volume (5) Morbid obesity: Patient would benefit from weight loss (6) Type 2 diabetes mellitus: Continue Lantus at 80% home dose Continue scheduled lispro 80% home dose Sliding-scale insulin correction Monitor for steroid-induced hyperglycemia (7) Hyperlipidemia: Continue statin (8) Gastroesophageal reflux disease: Continue PPI (9) Chronic atrial fibrillation: Continue Cardizem for rate control Continue apixaban for stroke ppx (10) Hypertension: Continue home medications Plan DVT prophylaxis: Apixaban Attestations 2 Medical Necessity Statement*: Patient presents with shortness of breath, found to have COPD exacerbation with acute on chronic hypoxic respiratory failure with pneumonia with expected hospitalization not to cross 2 midnights for IV steroids, IV antibiotics, and supportive care. Coding Level of Care Code Acute Code for [facility] Diagnoses Acute exacerbation of chronic obstructive airways disease J44.1 Pneumonia J18.9 Anemia D64.9 Anemia type: unspecified type Congestive heart failure I50.9 Morbid obesity E66.01 Type 2 diabetes mellitus E11.9 Hyperlipidemia E78.5 Gastroesophageal reflux disease K21.9 Chronic atrial fibrillation I48.20 Hypertension I10
[2024-03-08 22:13] LABS: Glucose Point of Care 289 mg/dL (70-110)
[2024-03-08] MEDS: cefepime 2,000 MG in sodium chloride 0.9% (plus) 50 ML 100 MG IV (22:14)
--- NOTE | 2024-03-08 22:31 | ECG_ITS ---
[facility] Test Date: 2024-03-09 Pat Name: Purvi Sparks Department: Room: 259 Gender: Female Milieu Technician: : 1945 Requested By: Radha Johns Order Number: [id number] Nia MD: López Romero M.D. Measurements Intervals [place] Rate: 92 P: 98 AK: 248 QRS: 29 QRSD: 78 T: 75 QT: 361 QTc: 448 Interpretive Statements SINUS RHYTHM WITH FIRST DEGREE AV BLOCK LOW QRS VOLTAGE IN PRECORDIAL LEADS [QRS DEFLECTION < 1.0 mV IN CHEST LEADS] POSSIBLE ANTERIOR MYOCARDIAL INFARCTION , PROBABLY OLD [30 ms Q WAVE IN V3/V4, OR R < 0.2 mV IN V4] Compared to ECG 03/08/2024 18:54:07 Myocardial infarct finding now present Electronically Signed On 03-09-2024 1:35:45 CDT by López Romero M.D. [id number]
[2024-03-08] MEDS: vancomycin 1,000 MG in sodium chloride 0.9% 250 ML 250 MG IV (22:49)
[2024-03-08 23:32] LABS: Troponin 5 6HR 41.13 ng/L (0-10)
[2024-03-08 23:34] LABS: Troponin 5 6HR Delta -8.87 ng/L (0-12)
[2024-03-09] VITALS (15 sets, daily range): BP systolic 125–159; BP diastolic 70–84; PULSE 87–101; RESP 18–20; TEMP 36.2–36.9; O2SAT 92–99; BMI 45.8
[2024-03-09] MEDS: methylPREDNISolone sod succ 40 mg/mL INJ IVP ×5 (00:10→23:46)
[2024-03-09 00:30] LABS: Procalcitonin 0.24 ng/mL (0-0.5)
[2024-03-09 03:32] LABS: Basophils % 0.5 %; Hematocrit 32.6 % (36-47); Lymphocytes # 0.9 10^3/uL (0.8-4.8); Lymphocytes % 11.2 %; Mean Corpuscular HGB Conc 25.5 g/dL (30-55); Mean Corpuscular Hemoglobin 25.2 pg (27-33); Mean Corpuscular Volume 98.8 fl (85-98); Mean Platelet Volume 11.4 fL (7.4-10.4); Monocytes % 0.5 %; Neutrophils # 7.04 10^3/uL (1.8-7.7); Neutrophils % 86.1 %; Nucleated Red Blood Cells % 0.4 %; Platelet Count 270 10^3/cmm (157-399); Red Cell Distribution Width 19.8 % (12.1-15.1); White Blood Count 8.18 10^3/uL (3.29-11.43)
[2024-03-09 03:53] LABS: Blood Urea Nitrogen 13 mg/dL (8-23); Calcium 8.3 mg/dL (8.5-10.5); Carbon Dioxide 32 mmol/L (22-29); Chloride 92 mmol/L (98-107); Creatinine Clr Calc Pharmacy 72.8358; Glucose 455 mg/dL (65-115); Magnesium 1.9 mg/dL (1.7-2.3); Osmolality Calculated 306 mOsm/kg (285-295); Sodium 138 mmol/L (136-145)
[2024-03-09 03:55] LABS: Anion Gap 18.6 (5-19); Potassium 4.6 mmol/L (3.5-5.1)
[2024-03-09] MEDS: ipratropium-albuterol 3 mL Neb INHALATION ×5 (04:11→19:47)
[2024-03-09] MEDS: mupirocin oint 22 gm 1 APPLIC TOPICAL (05:06)
[2024-03-09] MEDS: FUROsemide 20 mg Tablet 40 MG PO (05:16)
[2024-03-09] MEDS: insulin lispro 100 unit/1 mL SUBCUT ×5 (06:08→17:01)
[2024-03-09] MEDS: sucralfate 1 gm Tablet PO ×4 (06:08→21:08)
[2024-03-09 06:40] LABS: Glucose Point of Care 464 mg/dL (70-110)
[2024-03-09] MEDS: budesonide 0.5 mg/2 mL Neb INHALATION ×2 (07:17→19:47)
[2024-03-09] MEDS: atorvastatin 40 mg Tablet 80 MG PO (08:16)
[2024-03-09] MEDS: duloxetine 60 mg Capsule PO (08:17)
[2024-03-09] MEDS: magnesium oxide 400 mg tablet PO ×2 (08:17→17:00)
[2024-03-09] MEDS: ropinirole 1 mg Tablet PO (08:17)
[2024-03-09] MEDS: ferrous sulfate EC 325 mg Tablet PO ×2 (08:17→17:00)
[2024-03-09] MEDS: vancomycin 2,000 MG/400 ML PIGGYBACK 200 MG IV ×2 (08:17→19:26)
[2024-03-09] MEDS: docusate sodium 100 mg Capsule PO ×2 (08:17→17:00)
[2024-03-09] MEDS: pantoprazole DR 40 mg Tablet PO ×2 (08:17→17:00)
[2024-03-09] MEDS: dilTIAZem ER (24HR) 180 mg Capsule PO (08:17)
[2024-03-09] MEDS: insulin glargine 100 units/1 mL 40 UNIT SUBCUT ×2 (09:24→17:00)
[2024-03-09] MEDS: cefepime 2,000 MG in sodium chloride 0.9% (plus) 50 ML 100 MG IV ×2 (10:32→21:31)
[2024-03-09 11:45] LABS: Glucose Point of Care 519 mg/dL (70-110)
[2024-03-09 11:45] LABS: Glucose Point of Care 510 mg/dL (70-110)
[2024-03-09] MEDS: ALPRAZolam 0.5 mg Tablet 0.25 MG PO (11:46)
[2024-03-09 12:55] LABS: Anion Gap 17.6 (5-19); Blood Urea Nitrogen 15 mg/dL (8-23); Calcium 8.4 mg/dL (8.5-10.5); Carbon Dioxide 33 mmol/L (22-29); Chloride 87 mmol/L (98-107); Creatinine Clr Calc Pharmacy 63.9666; Glucose 498 mg/dL (65-115); Osmolality Calculated 301 mOsm/kg (285-295); Potassium 3.6 mmol/L (3.5-5.1); Sodium 134 mmol/L (136-145)
--- NOTE | 2024-03-09 12:58 | P.PN_ITS ---
Subjective 2 Subjective: seen this morning pt states she would like to be DNR/DNI. She states her daughter has power of insurance attorney over her she thinks however that is not the case. She states she only has ability to make decisions if she is not coherent. She described that she knows if she is DNR/DNI she would and she does not want any heroic measures. Nursing staff in room and witnessed this conversation. Patient does not have a known history of dementia. Vitals/I&O/Wt Last Vital Signs Temp 97.9 F 03/09/24 12:00 Pulse 99 03/09/24 12:00 Resp 19 H 03/09/24 12:00 BP 132/76 03/09/24 12:00 Pulse Ox 93 03/09/24 12:00 O2 Del Method Nasal Cannula 03/09/24 12:00 O2 Flow Rate 4 03/09/24 11:33 03/08/24 03/09/24 03/09/24 22:59 06:59 14:59 Intake Total 50 / 50 1378 / 1428 930 / 930 Balance 50 / 50 1378 / 1428 930 / 930 Weight last 48 hrs Weight 121.138 kg Weight 123.695 kg Weight 123.604 kg Physical Exam 2 Narrative: General: Patient is awake and alert. Chronically ill-appearing. Head: Normocephalic. Atraumatic. EOM intact. Slightly hard of hearing. Neck: JVD is difficult to assess due to body habitus. Cardiovascular: RRR. No gallops. No murmurs. Nonpitting bilateral lower extremity edema is present. Lungs: Breath sounds are distant. There is faint rhonchi in the left lung. There is faint end expiratory wheezing. No conversational dyspnea. Skin: No jaundice. No rashes. Abdomen: Normal bowel sounds, abdomen soft and nontender. Extremities: No cyanosis or clubbing. Musculoskeletal: No swollen or erythematous joints. Neurological: Moves all 4 extremities. No myoclonus. Urinary Catheter Management: Curry: Cath Placed During This Visit: yes Urinary Catheter Date of Insertion: 03/09/24 Urinary Catheter Time of Insertion: 09:55 Data 03/09/24 02:59 03/09/24 12:25 Micro: Microbiology 03/09/24 09:56 Bacterial Antigens - Final Urine,Clean Catch A&P Assessment and plan (1) Acute exacerbation of chronic obstructive airways disease: Acute COPD exacerbation Acute on chronic hypoxic respiratory failure secondary to COPD and pneumonia Start Solu-Medrol Pulmicort Scheduled DuoNebs Encourage pulmonary toilet (2) Pneumonia: Left-sided pneumonia on imaging Start cefepime and vancomycin due to recent hospitalizations and IV antibiotic exposure MRSA screen Check procal Sputum culture requested (3) Anemia: Recent admission for anemia requiring transfusion noted Monitor blood counts closely Qualifiers: Anemia type: unspecified type Qualified Code(s): D64.9 - Anemia, unspecified (4) Congestive heart failure: Chronic heart failure with preserved ejection fraction Patient does not appear to be in exacerbation currently Strict I's and O's Daily weights Daily assessment of volume (5) Morbid obesity: Patient would benefit from weight loss (6) Type 2 diabetes mellitus: Continue Lantus at 80% home dose Continue scheduled lispro 80% home dose Sliding-scale insulin correction Monitor for steroid-induced hyperglycemia (7) Hyperlipidemia: Continue statin (8) Gastroesophageal reflux disease: Continue PPI (9) Chronic atrial fibrillation: Continue Cardizem for rate control Continue apixaban for stroke ppx (10) Hypertension: Continue home medications Plan DVT prophylaxis: Apixaban DNR/DNI. Patient states he would like to change her CODE STATUS and does not want any heroic measures. Patient is incontinent of urine does have a scaly rash on her back with redness present. Will perform hygienic care and place barrier cream. Attestations 2 Medical Necessity Statement*: Continue to treat for COPD exacerbation as listed above. Diagnoses Acute exacerbation of chronic obstructive airways disease J44.1 Pneumonia J18.9 Anemia D64.9 Anemia type: unspecified type Congestive heart failure I50.9 Morbid obesity E66.01 Type 2 diabetes mellitus E11.9 Hyperlipidemia E78.5 Gastroesophageal reflux disease K21.9 Chronic atrial fibrillation I48.20 Hypertension I10
[2024-03-09] MEDS: insulin lispro 100 unit/1 mL 20 UNIT SUBCUT (13:19)
--- NOTE | 2024-03-09 13:25 | PC.NURSE ---
Noon dose of sliding scale insulin non-admin per verbal order from Dr Vega. She wanted to wait for lab results to decide if pt needed to be transferred to receive insulin drip.
--- NOTE | 2024-03-09 13:58 | PHA.VACGOAL ---
Vancomycin Goal - Therapy Day of therpy:: Day []of [] . Actual body weight (kg): 267 lb 1 oz - Data Labs: WBC 8.18 10^3/uL (3.29-11.43) 03/09/24 02:59 RBC 3.30 10^6/uL (3.85-5.65) L 03/09/24 02:59 Hgb 8.30 g/dL (11.27-16.99) L 03/09/24 02:59 Hct 32.6 % (36-47) L 03/09/24 02:59 MCV 98.8 fl (85-98) H 03/09/24 02:59 MCH 25.2 pg (27-33) L 03/09/24 02:59 MCHC 25.5 g/dL (30-55) L 03/09/24 02:59 RDW 19.8 % (12.1-15.1) H 03/09/24 02:59 Sodium 134 mmol/L (136-145) L 03/09/24 12:25 Potassium 3.6 mmol/L (3.5-5.1) 03/09/24 12:25 Chloride 87 mmol/L (98-107) L 03/09/24 12:25 Carbon Dioxide 33 mmol/L (22-29) H 03/09/24 12:25 Anion Gap 17.6 (5-19) 03/09/24 12:25 BUN 15 mg/dL (8-23) 03/09/24 12:25 Creatinine 0.9 mg/dL (0.5-0.9) 03/09/24 12:25 GFR Calculation Not Reportable 03/09/24 12:25 Treatment plan:: continue Additional Comments:: 2000 MG Q12H BY TELEPHARMACY; TROUGH 03/10 @1900
[2024-03-09 16:37] LABS: Glucose Point of Care 458 mg/dL (70-110)
--- NOTE | 2024-03-09 21:03 | PC.NURSE ---
259-2 Purvi Sparks CBG of 499. Per sliding scale it states anything over 400 give 18 units of Humalog. I was wondering if you wanted me to give more then 18 units Sent 20:57 ? Read 20:58 Lets do [address] Gato Nguyen - Hospitalist ? 20:58
[2024-03-09] MEDS: sennosides 8.6 mg Tablet 17.2 MG PO (21:08)
[2024-03-09 21:11] LABS: Glucose Point of Care 499 mg/dL (70-110)
[2024-03-09] MEDS: insulin lispro 100 unit/1 mL 22 UNIT SUBCUT (21:38)
[2024-03-10] VITALS (17 sets, daily range): BP systolic 142–155; BP diastolic 68–76; PULSE 54–99; RESP 18–20; TEMP 36.5–37.4; O2SAT 90–95
[2024-03-10] MEDS: ipratropium-albuterol 3 mL Neb INHALATION ×6 (04:13→23:53)
[2024-03-10] MEDS: methylPREDNISolone sod succ 40 mg/mL INJ IVP ×3 (05:01→21:20)
[2024-03-10] MEDS: FUROsemide 20 mg Tablet 40 MG PO (05:01)
[2024-03-10 05:58] LABS: Basophils % 0.1 %; Hematocrit 29.8 % (36-47); Lymphocytes # 0.9 10^3/uL (0.8-4.8); Lymphocytes % 10.2 %; Mean Corpuscular HGB Conc 27.2 g/dL (30-55); Mean Corpuscular Hemoglobin 25.7 pg (27-33); Mean Corpuscular Volume 94.6 fl (85-98); Mean Platelet Volume 11.4 fL (7.4-10.4); Monocytes # 0.4 10^3/uL (0.2-0.9); Monocytes % 4.4 %; Neutrophils # 7.25 10^3/uL (1.8-7.7); Nucleated Red Blood Cells % 0 %; Platelet Count 286 10^3/cmm (157-399); Red Blood Count 3.15 10^6/uL (3.85-5.65); Red Cell Distribution Width 19.9 % (12.1-15.1); White Blood Count 8.63 10^3/uL (3.29-11.43)
[2024-03-10] MEDS: sucralfate 1 gm Tablet PO ×4 (06:00→21:19)
[2024-03-10 06:24] LABS: Glucose Point of Care 472 mg/dL (70-110)
--- NOTE | 2024-03-10 06:24 | PC.NURSE ---
259-2 Purvi Bridger [facility] [place]. They are supposed to get 5 units of humalog. Want me to give them any more? They have a Sliding scale of Humalog due at 8am and 40 units of Lantus as well at 9AM Sent 06:21 ? Read 06:21 Lets give 14 units instead of [address] Gato Nguyen - Hospitalist ? 06:22
[2024-03-10 06:29] LABS: Anion Gap 15.5 (5-19); Blood Urea Nitrogen 20 mg/dL (8-23); Calcium 8.3 mg/dL (8.5-10.5); Carbon Dioxide 33 mmol/L (22-29); Chloride 92 mmol/L (98-107); Creatinine Clr Calc Pharmacy 57.7385; Glucose 452 mg/dL (65-115); Magnesium 1.8 mg/dL (1.7-2.3); Osmolality Calculated 306 mOsm/kg (285-295); Potassium 3.5 mmol/L (3.5-5.1); Sodium 137 mmol/L (136-145)
[2024-03-10] MEDS: insulin lispro 100 unit/1 mL 14 UNIT SUBCUT (06:32)
[2024-03-10] MEDS: budesonide 0.5 mg/2 mL Neb INHALATION ×2 (07:49→20:02)
[2024-03-10] MEDS: ferrous sulfate EC 325 mg Tablet PO ×2 (07:59→17:11)
[2024-03-10] MEDS: vancomycin 2,000 MG/400 ML PIGGYBACK 200 MG IV (07:59)
[2024-03-10] MEDS: atorvastatin 40 mg Tablet 80 MG PO (08:00)
[2024-03-10] MEDS: insulin lispro 100 unit/1 mL SUBCUT ×6 (08:00→21:20)
[2024-03-10] MEDS: magnesium oxide 400 mg tablet PO ×2 (08:01→17:10)
[2024-03-10] MEDS: ropinirole 1 mg Tablet PO (08:01)
[2024-03-10] MEDS: insulin glargine 100 units/1 mL 40 UNIT SUBCUT ×2 (08:01→17:11)
[2024-03-10] MEDS: docusate sodium 100 mg Capsule PO ×2 (08:01→17:11)
[2024-03-10] MEDS: dilTIAZem ER (24HR) 180 mg Capsule PO (08:01)
[2024-03-10] MEDS: pantoprazole DR 40 mg Tablet PO ×2 (08:01→17:11)
[2024-03-10] MEDS: duloxetine 60 mg Capsule PO (08:01)
--- NOTE | 2024-03-10 08:44 | P.PN_ITS ---
Subjective 2 Subjective: Blood sugar 400 range this morning. Patient states she feels better. Vitals/I&O/Wt Last Vital Signs Temp 98.6 F 03/10/24 07:31 Pulse 95 03/10/24 07:51 Resp 18 03/10/24 07:51 BP 149/68 03/10/24 07:31 Pulse Ox 95 03/10/24 07:51 O2 Del Method Nasal Cannula 03/10/24 07:51 O2 Flow Rate 3 03/10/24 07:51 03/09/24 03/10/24 03/10/24 22:59 06:59 14:59 Intake Total 690 / 1620 Output Total 700 / 700 Balance -0 Weight last 48 hrs Weight 121.733 kg Weight 121.138 kg Weight 123.695 kg Weight 123.604 kg Physical Exam 2 Narrative: General: Patient is awake and alert. Chronically ill-appearing. Head: Normocephalic. Atraumatic. EOM intact. Slightly hard of hearing. Neck: JVD is difficult to assess due to body habitus. Cardiovascular: RRR. No gallops. No murmurs. Nonpitting bilateral lower extremity edema is present. Lungs: Breath sounds are distant. There is faint rhonchi in the left lung. Mild wheezing noted throughout lung guadalupe today. Skin: No jaundice. No rashes. Abdomen: Normal bowel sounds, abdomen soft and nontender. Extremities: No cyanosis or clubbing. Musculoskeletal: No swollen or erythematous joints. Neurological: Moves all 4 extremities. No myoclonus. Urinary Catheter Management: Curry: Cath Placed During This Visit: yes Reason for Continuing Indwelling Catheter: Chronic Indwelling Urinary Catheter on Admission Urinary Catheter Date of Insertion: 03/09/24 Urinary Catheter Time of Insertion: 09:55 Data 03/10/24 05:42 03/10/24 05:42 Micro: Microbiology 03/09/24 09:56 Bacterial Antigens - Final Urine,Clean Catch A&P Assessment and plan (1) Acute exacerbation of chronic obstructive airways disease: Acute COPD exacerbation Acute on chronic hypoxic respiratory failure secondary to COPD and pneumonia Start Solu-Medrol Pulmicort Scheduled DuoNebs Encourage pulmonary toilet (2) Pneumonia: Left-sided pneumonia on imaging Start cefepime and vancomycin due to recent hospitalizations and IV antibiotic exposure MRSA screen Check procal Sputum culture requested (3) Anemia: Recent admission for anemia requiring transfusion noted Monitor blood counts closely Qualifiers: Anemia type: unspecified type Qualified Code(s): D64.9 - Anemia, unspecified (4) Congestive heart failure: Chronic heart failure with preserved ejection fraction Patient does not appear to be in exacerbation currently Strict I's and O's Daily weights Daily assessment of volume (5) Morbid obesity: Patient would benefit from weight loss (6) Type 2 diabetes mellitus: Continue Lantus at 80% home dose Continue scheduled lispro 80% home dose Sliding-scale insulin correction Monitor for steroid-induced hyperglycemia (7) Hyperlipidemia: Continue statin (8) Gastroesophageal reflux disease: Continue PPI (9) Chronic atrial fibrillation: Continue Cardizem for rate control Continue apixaban for stroke ppx (10) Hypertension: Continue home medications Plan DVT prophylaxis: Apixaban DNR/DNI. Patient states he would like to change her CODE STATUS and does not want any heroic measures. Patient is incontinent of urine does have a scaly rash on her back with redness present. Will perform hygienic care and place barrier cream. 03/10 Blood sugar still elevated and 400 range. She is on Solu-Medrol 40 every 6 hours. Reduce Solu-Medrol to 40 every 12 hours Carbohydrate consistent diet Continue high-dose insulin sliding scale. Switch Lantus from 40 twice daily to 50 twice daily patient's home dose. Continue apixaban 5 mg twice daily. Continue cefepime and vancomycin Continue DuoNeb every 6 hours as needed. Patient is at baseline nasal cannula 3 L. Most likely plan for discharge in next 24 to 48 hours pending clinical improvement. Will change CODE STATUS to DNR/DNI as per patient's wishes. Attestations 2 Medical Necessity Statement*: Discharge in next 24 to 48 hours. Patient requires continued hospitalization for elevated blood sugars, pneumonia and COPD exacerbation. Diagnoses Acute exacerbation of chronic obstructive airways disease J44.1 Pneumonia J18.9 Anemia D64.9 Anemia type: unspecified type Congestive heart failure I50.9 Morbid obesity E66.01 Type 2 diabetes mellitus E11.9 Hyperlipidemia E78.5 Gastroesophageal reflux disease K21.9 Chronic atrial fibrillation I48.20 Hypertension I10
[2024-03-10 09:43] LABS: ABG PCO2 53.5 mmHg (35-45); ABG PH Result 7.49 (7.35-7.45); Arterial Blood Gas Hematocrit 25.1 % (37-47); Base Excess ABG 15.5 mmol/L (-2.0-2.0); Blood Gas Allen Test Pos; Blood Gas Operator Identificat CL; Blood Gas Sample Site Radial, right; Blood Gas Sample Type Arterial; Carboxyhemoglobin 2.5 %THgb (0.4-20.1); HCO3 ABG 40.6 mmol/L (22-26); HGB O2 Sat 81.1 % (95-100); Ionized Calcium Level - ABG 1.1 mmol/L (1.1-1.4); Methemoglobin 0.2 % (0.4-1.5); Oxygen Device NC; Oxygen Saturation ABG 83.3; PO2 ABG 45.9 mmHg (80.0-100.0); Potassium Level - ABG 3.2 mmol/L (3.5-5.0); Total Hemoglobin 8.2 g/dL (12-16)
[2024-03-10] MEDS: cefepime 2,000 MG in sodium chloride 0.9% (plus) 50 ML 100 MG IV ×2 (10:15→21:20)
[2024-03-10] MEDS: apixaban 5 mg Tablet PO ×2 (11:14→21:19)
[2024-03-10 11:38] LABS: Glucose Point of Care 391 mg/dL (70-110)
--- NOTE | 2024-03-10 12:23 | PC.SOCIAL ---
IMM update Pg. 2 of IMM updated and reviewed with patient, who verbalized understanding. Copy provided.
[2024-03-10 16:46] LABS: Glucose Point of Care 390 mg/dL (70-110)
[2024-03-10 16:55] LABS: Methicillin-Resist S.aureu PCR DETECTED (NOT DETECTED)
[2024-03-10 20:23] LABS: Vancomycin Trough 36.1 ug/mL (10-15)
[2024-03-10 20:25] LABS: Glucose Point of Care 376 mg/dL (70-110)
[2024-03-10] MEDS: sennosides 8.6 mg Tablet 17.2 MG PO (21:19)
[2024-03-11] VITALS (11 sets, daily range): BP systolic 149–179; BP diastolic 73–81; PULSE 60–106; RESP 18–20; TEMP 36.6–37.1; O2SAT 91–98
[2024-03-11] MEDS: ipratropium-albuterol 3 mL Neb INHALATION ×4 (04:50→15:16)
[2024-03-11 04:53] LABS: Eosinophils % 0.3 %; Hematocrit 28.4 % (36-47); Lymphocytes # 0.8 10^3/uL (0.8-4.8); Lymphocytes % 10.1 %; Mean Corpuscular HGB Conc 27.8 g/dL (30-55); Mean Corpuscular Hemoglobin 26.1 pg (27-33); Mean Corpuscular Volume 93.7 fl (85-98); Mean Platelet Volume 11.2 fL (7.4-10.4); Monocytes # 0.6 10^3/uL (0.2-0.9); Monocytes % 7.8 %; Neutrophils # 6.19 10^3/uL (1.8-7.7); Neutrophils % 80.9 %; Nucleated Red Blood Cells % 0 %; Platelet Count 270 10^3/cmm (157-399); Red Blood Count 3.03 10^6/uL (3.85-5.65); Red Cell Distribution Width 19.2 % (12.1-15.1); White Blood Count 7.65 10^3/uL (3.29-11.43)
[2024-03-11 05:25] LABS: Anion Gap 14.7 (5-19); Blood Urea Nitrogen 20 mg/dL (8-23); Calcium 8.4 mg/dL (8.5-10.5); Carbon Dioxide 34 mmol/L (22-29); Chloride 91 mmol/L (98-107); Creatinine Clr Calc Pharmacy 72.1731; Glucose 341 mg/dL (65-115); Osmolality Calculated 300 mOsm/kg (285-295); Sodium 137 mmol/L (136-145)
[2024-03-11 05:29] LABS: Potassium 2.7 mmol/L (3.5-5.1)
[2024-03-11 06:38] LABS: Glucose Point of Care 366 mg/dL (70-110)
[2024-03-11] MEDS: lidocaine 1% 5 ML in potassium chloride premix 100 ML 50 ML IV (06:42)
[2024-03-11] MEDS: insulin lispro 100 unit/1 mL SUBCUT ×5 (06:44→17:18)
[2024-03-11] MEDS: sucralfate 1 gm Tablet PO ×3 (06:44→17:19)
[2024-03-11] MEDS: potassium chloride ER 20 mEq Tablet 40 MEQ PO ×2 (06:44→10:09)
[2024-03-11] MEDS: budesonide 0.5 mg/2 mL Neb INHALATION (07:51)
[2024-03-11] MEDS: ferrous sulfate EC 325 mg Tablet PO (08:29)
[2024-03-11] MEDS: FUROsemide 20 mg Tablet 40 MG PO (08:29)
[2024-03-11] MEDS: apixaban 5 mg Tablet PO (08:29)
[2024-03-11] MEDS: dilTIAZem ER (24HR) 180 mg Capsule PO (08:29)
[2024-03-11] MEDS: docusate sodium 100 mg Capsule PO (08:29)
[2024-03-11] MEDS: pantoprazole DR 40 mg Tablet PO (08:29)
[2024-03-11] MEDS: atorvastatin 40 mg Tablet 80 MG PO (08:29)
[2024-03-11] MEDS: ropinirole 1 mg Tablet PO (08:29)
[2024-03-11] MEDS: magnesium oxide 400 mg tablet PO (08:29)
[2024-03-11] MEDS: insulin glargine 100 units/1 mL 40 UNIT SUBCUT (08:31)
[2024-03-11] MEDS: duloxetine 60 mg Capsule PO (08:32)
[2024-03-11] MEDS: methylPREDNISolone sod succ 40 mg/mL INJ IVP (08:35)
[2024-03-11] MEDS: cefepime 2,000 MG in sodium chloride 0.9% (plus) 50 ML 100 MG IV (10:09)
[2024-03-11 10:53] LABS: Glucose Point of Care 426 mg/dL (70-110)
--- NOTE | 2024-03-11 11:52 | P.DS_ITS ---
Discharge Providers Date of Admission: 03/09/24 19:24 Date of Discharge: March 11, 2024 Attending Provider at Admission: Gato Nguyen MD Attending Provider at Discharge: Latoya Vega MD Primary Care Provider: Elaine Topete Diagnoses at Discharge Discharge Diagnosis (1) Acute exacerbation of chronic obstructive airways disease: Status: Acute (2) Pneumonia: Status: Acute (3) Anemia: Status: Acute Qualifiers: Anemia type: unspecified type Qualified Code(s): D64.9 - Anemia, unspecified (4) Congestive heart failure: Status: Acute (5) Morbid obesity: Status: Chronic (6) Type 2 diabetes mellitus: Status: Acute (7) Hyperlipidemia: Status: Chronic (8) Gastroesophageal reflux disease: Status: Chronic (9) Chronic atrial fibrillation: Status: Chronic (10) Hypertension: Status: Chronic Reason for Visit Reason for Visit: SOB Hospital Course Hospital Course Patient admitted for COPD exacerbation with questionable left-sided pneumonia. Did have elevated blood sugars which were better controlled once Solu-Medrol was reduced. She will be discharged with antibiotics and prednisone for next 5 days. Physical Exam Narrative: General: Patient is awake and alert. Head: Normocephalic. Atraumatic. EOM intact. Cardiovascular: RRR. No gallops. No murmurs. Nonpitting bilateral lower extremity edema is present. Lungs: Breath sounds are distant. There is faint rhonchi in the left lung. CTA b/l Skin: No jaundice. No rashes. Abdomen: Normal bowel sounds, abdomen soft and nontender. Extremities: No cyanosis or clubbing. Urinary Catheter Management: Curry: Cath Placed During This Visit: yes Reason for Continuing Indwelling Catheter: Assist Healing of Perineal & Sacral Wounds- Incontinent Patients Urinary Catheter Date of Insertion: 03/09/24 Urinary Catheter Time of Insertion: 09:55 Discharge Data Studies Completed and Pending Completed Studies During Hospitalization Category Date Time Status XR chest 1V portable [id number] Stat Exams 03/08/24 16:27 Completed Pending at discharge Category Date Time Status Sputum Culture and Gram Stain Routine Lab 03/09/24 15:10 Results Radiology Impressions Chest X-Ray 03/08/24 16:27 IMPRESSION: Left basilar pneumonia Laboratory Results WBC 7.65 10^3/uL (3.29-11.43) 03/11/24 04:47 RBC 3.03 10^6/uL (3.85-5.65) L 03/11/24 04:47 Hgb 7.90 g/dL (11.27-16.99) L 03/11/24 04:47 Hct 28.4 % (36-47) L 03/11/24 04:47 MCV 93.7 fl (85-98) 03/11/24 04:47 MCH 26.1 pg (27-33) L 03/11/24 04:47 MCHC 27.8 g/dL (30-55) L 03/11/24 04:47 RDW 19.2 % (12.1-15.1) H 03/11/24 04:47 Plt Count 270 10^3/cmm (157-399) 03/11/24 04:47 MPV 11.2 fL (7.4-10.4) H 03/11/24 04:47 Neut % (Auto) 80.9 % 03/11/24 04:47 Lymph % (Auto) 10.1 % 03/11/24 04:47 Seneca % (Auto) 7.8 % 03/11/24 04:47 Eos % (Auto) 0.3 % 03/11/24 04:47 Baso % (Auto) 0.0 % 03/11/24 04:47 Neut # (Auto) 6.19 10^3/uL (1.8-7.7) 03/11/24 04:47 Lymph # (Auto) 0.8 10^3/uL (0.8-4.8) 03/11/24 04:47 Seneca # (Auto) 0.6 10^3/uL (0.2-0.9) 03/11/24 04:47 Eos # (Auto) 0.0 10^3/uL (0.0-0.8) 03/11/24 04:47 Baso # (Auto) 0.0 10^3/uL (0.0-0.1) 03/11/24 04:47 Nucleated RBC % (auto) 0 % 03/11/24 04:47 Nucleated RBCs # 0.0 /100WBC 03/11/24 04:47 D-Dimer 0.86 ug/mLFEU (0-0.59) H 03/08/24 16:44 Specimen Type Arterial 03/10/24 06:50 Sample Site Radial, right 03/10/24 06:50 ABG pH 7.49 (7.35-7.45) H 03/10/24 06:50 ABG pCO2 53.5 mmHg (35-45) H 03/10/24 06:50 ABG pO2 45.9 mmHg (80.0-100.0) L 03/10/24 06:50 ABG PO2/FiO2 Ratio 112 03/08/24 16:54 ABG HCO3 40.6 mmol/L (22-26) H 03/10/24 06:50 ABG O2 Saturation 83.3 03/10/24 06:50 ABG Base Excess 15.5 mmol/L (-2.0-2.0) H 03/10/24 06:50 Monico Test Pos 03/10/24 06:50 A-a O2 Gradient Not Reportable 03/10/24 06:50 Hematocrit 25.1 % (37-47) L 03/10/24 06:50 Hgb O2 Saturation 81.1 % (95-100) L 03/10/24 06:50 Carboxyhemoglobin 2.5 %THgb (0.4-20.1) 03/10/24 06:50 Methemoglobin 0.2 % (0.4-1.5) L 03/10/24 06:50 Total Hemoglobin 8.2 g/dL (12-16) L 03/10/24 06:50 Sodium 137.0 mmol/L (131-143) 03/10/24 06:50 Potassium 3.2 mmol/L (3.5-5.0) L 03/10/24 06:50 Glucose 451.0 mg/dL (70-115) H 03/10/24 06:50 Ionized Calcium 1.1 mmol/L (1.1-1.4) 03/10/24 06:50 O2 Delivery Device Nc 03/10/24 06:50 O2 Liters/Min 3.0 % 03/10/24 06:50 FiO2 0.0 % 03/10/24 06:50 [employer] Professor ID Cl 03/10/24 06:50 Sodium 137 mmol/L (136-145) 03/11/24 04:47 Potassium 2.7 mmol/L (3.5-5.1) L* D 03/11/24 04:47 Chloride 91 mmol/L (98-107) L 03/11/24 04:47 Carbon Dioxide 34 mmol/L (22-29) H 03/11/24 04:47 Anion Gap 14.7 (5-19) 03/11/24 04:47 BUN 20 mg/dL (8-23) 03/11/24 04:47 Creatinine 0.8 mg/dL (0.5-0.9) 03/11/24 04:47 GFR Calculation Not Reportable 03/11/24 04:47 Glucose 341 mg/dL (65-115) H 03/11/24 04:47 POC Glucose 426 mg/dL (70-110) H 03/11/24 10:47 Calculated Osmolality 300 mOsm/kg (285-295) H 03/11/24 04:47 Lactic Acid 3.5 mmol/L (0.5-2.2) H 03/08/24 16:44 Lactic Acid (Sepsis) 2.2 mmol/L (0.5-2.2) 03/08/24 19:49 Calcium 8.4 mg/dL (8.5-10.5) L 03/11/24 04:47 Magnesium 1.8 mg/dL (1.7-2.3) 03/10/24 05:42 Total Bilirubin 0.3 mg/dL (0.15-1.2) 03/08/24 16:44 AST 15 U/L (0-32) 03/08/24 16:44 ALT 10 U/L (0-33) 03/08/24 16:44 Alkaline Phosphatase 117 U/L (35-105) H 03/08/24 16:44 Troponin T Baseline 50 ng/L (0-10) H 03/08/24 16:44 Troponin T 120 Minute 47.39 ng/L (0-10) H 03/08/24 18:52 Delta Troponin T -2.61 ABS# (0-10) L 03/08/24 18:52 Troponin T Hi Sens 6Hr 41.13 ng/L (0-10) H 03/08/24 23:03 Troponin T Hi Sens 6Hr Delta -8.87 ng/L (0-12) L 03/08/24 23:03 NT-Pro-B Natriuret Pep 866 pg/mL (0-450) H 03/08/24 16:44 Total Protein 5.8 g/dL (6.6-8.7) L 03/08/24 16:44 Albumin 3.2 g/dL (3.5-5.2) L 03/08/24 16:44 Globulin 2.6 g/dL (1.3-4.6) 03/08/24 16:44 Procalcitonin 0.24 ng/mL (0-0.5) 03/08/24 23:03 Vancomycin Trough 36.1 ug/mL (10-15) H* 03/10/24 19:32 Coronavirus 229E (PCR) Not detected (NOT DETECT) 03/08/24 17:15 SARS-CoV-2 (PCR) Not detected (NOT DETECT) 03/08/24 17:15 MRSA (PCR) Detected (NOT DETECTED) A 03/09/24 00:15 Vitals Last Vital Signs Temp 98.2 F 03/11/24 10:53 Pulse 89 03/11/24 11:48 Resp 18 03/11/24 11:48 BP 157/74 03/11/24 10:53 Pulse Ox 94 03/11/24 11:48 O2 Del Method Nasal Cannula 03/11/24 11:48 O2 Flow Rate 2 03/11/24 11:48 Discharge Plan Discharge Patient Disposition: er [facility] Condition: Stable Prescriptions: Continued ropinirole 1 mg Tablet 1 mg PO DAILY docusate sodium [Stool Softener] 100 mg Tablet 100 mg PO BID ondansetron HCl 4 mg Tablet 4 mg PO Q6H PRN (Reason: Nausea) magnesium oxide 400 mg (241.3 mg magnesium) Tablet 400 mg PO BID Qty: 6 0RF Trelegy Ellipta 100-62.5-25 mcg blister with device 1 inh inhalation DAILY Qty: 60 0RF albuterol sulfate 90 mcg/actuation HFA aerosol inhaler 1 inh inhalation Q6H PRN (Reason: shortness of breath or wheezing) Qty: 8.5 0RF acetaminophen 325 mg Tablet 650 mg PO Q4H PRN (Reason: Pain OR FEVER) hydrocodone-acetaminophen 5-325 mg tablet 1 tab PO Q4H PRN (Reason: Pain) magnesium hydroxide [Milk of Magnesia] 400 mg/5 mL Suspension 30 ml PO DAILY PRN (Reason: Constipation) bisacodyl [Dulcolax (bisacodyl)] 10 mg Suppository 10 mg IA DAILY PRN (Reason: Constipation) Fleet Enema 19-7 gram/118 mL Enema 118 ml IA DAILY PRN (Reason: Constipation) rosuvastatin 20 mg tablet 20 mg PO DAILY duloxetine 60 mg capsule,delayed release(DR/EC) 60 mg PO DAILY Artificial Tears (cmc) 1 % Drops 1 drp OPHTHALMIC (EYE) PRN diltiazem HCl [Cardizem CD] 180 mg capsule,extended release 24hr 180 mg PO DAILY Qty: 30 0RF mupirocin 2 % Ointment 1 applic TOPICAL Q6D Rx Instructions: apply to axillary folds, groin folds nystatin 100,000 unit/gram Powder 1 applic TOPICAL BID PRN (Reason: SKIN REDNESS) chlorhexidine gluconate [Hibiclens] 4 % Liquid See Rx Instructions .ROUTE .COMPLEX Rx Instructions: APPLY TOPICALLY ALL OVER BODY EXCEPT FACE, EVERY 6 DAYS. insulin lispro [Humalog KwikPen Insulin] 100 unit/mL Insulin Pen See Rx Instructions .ROUTE .COMPLEX Rx Instructions: INJECT 15 UNITS 3 TIMES DAILY PLUS SLIDING SCALE: BS 150-200=0 UNITS, 201- 250=2 UNITS, 251-300=4 UNITS, 301-350=6 UNITS, 351-400=8 UNITS. cholecalciferol (vitamin D3) 1,250 mcg (50,000 unit) Capsule 1 mcg PO Q7D Rx Instructions: ON SUNDAY diclofenac sodium 1 % Gel See Rx Instructions .ROUTE .COMPLEX Rx Instructions: APPLY 4G TOPICALLY TO RIGHT KNEW EVERY 12 HOURS NEEDED FOR PAIN. furosemide [Lasix] 20 mg tablet 40 mg PO QAM 30 Days Qty: 60 0RF cyanocobalamin (vitamin B-12) 1,000 mcg/mL Kit 100 mcg IM DAILY Rx Instructions: one time daily every 7 days for vitamin deficiency for 4 weeks insulin glargine 100 unit/mL Solution 50 unit SUBCUT BID Rx Instructions: hold if blood glucose is less than 100 Klor-Con M20 20 mEq Tablet,Er Particles/Crystals 20 meq PO DAILY zinc oxide 10 % Cream 1 applic TOPICAL DAILY albuterol sulfate 2.5 mg /3 mL (0.083 %) solution for nebulization 2.5 mg inhalation TID PRN (Reason: copd) alprazolam 0.25 mg tablet 0.25 mg PO Q12H PRN (Reason: Anxiety) sucralfate 1 gram Tablet 1 g PO AC&BEDTIME Qty: 120 1RF pantoprazole 40 mg Tablet,Delayed Release (Dr/Ec) 40 mg PO BIDWM Qty: 60 0RF ferrous sulfate 325 mg (65 mg iron) Tablet 325 mg PO BIDWM Qty: 60 0RF Discharge Orders: Discharge Order (Routine); Ordered 03/11/24 Ordered By: Latoya Vega Other Ambulatory Orders: Complete Blood Count w/Auto (Routine) Timeframe: 3 Days Location: Determined by Patient Ordered By: Latoya Vega Referrals: [facility] [Outside] Elaine Topete PA [Primary Care Provider] - 1-3 days Discharge Diet: Cardiac and Diabetic Discharge Activity: Resume usual activity Patient Instructions: Prednisone (By mouth), Levofloxacin (By mouth) (Levaquin, Levaquin Leva-savannah), COPD (Chronic Obstructive Pulmonary Disease) (ED), Opioid Safety, Pain Management, Pneumonia Stoplight Discharge Attestations Time Spent in Discharge Care*: less than 30 min Status at Discharge: Cognitive status at discharge: cognitively intact , Behavioral status at discharge: cooperative , Quality Metrics Clinical Quality Measures [ No reported AMI, CVA or VTE this stay] Coding Level of Care Code Acute Code for [facility] Fwd Diagnoses Acute exacerbation of chronic obstructive airways disease J44.1 Pneumonia J18.9 Anemia D64.9 Anemia type: unspecified type Congestive heart failure I50.9 Morbid obesity E66.01 Type 2 diabetes mellitus E11.9 Hyperlipidemia E78.5 Gastroesophageal reflux disease K21.9 Chronic atrial fibrillation I48.20 Hypertension I10
== END 2024-03-11 17:45 | disposition skilled nursing facility (03) | DRG 190 ==
LOC: ER 20:41 → MEDSURG 21:10
PROVIDERS: Admitting Provider Internal Medicine; Emergency Provider Emergency Medicine; PCP Physician Assistant; Visit Provider Internal Medicine
DX: J44.1 Chronic obstructive pulmonary disease with (acute) exacerbation (principal); J18.9 Pneumonia, unspecified organism; J96.21 Acute and chronic respiratory failure with hypoxia; I50.32 Chronic diastolic (congestive) heart failure; I48.20 Chronic atrial fibrillation, unspecified; Z68.42 Body mass index [BMI] 45.0-49.9, adult; J44.0 Chronic obstructive pulmonary disease with (acute) lower respiratory infection; I11.0 Hypertensive heart disease with heart failure; G89.4 Chronic pain syndrome; G25.81 Restless legs syndrome; E11.9 Type 2 diabetes mellitus without complications; I25.10 Atherosclerotic heart disease of native coronary artery without angina pectoris; E66.01 Morbid (severe) obesity due to excess calories; M81.0 Age-related osteoporosis without current pathological fracture; D64.9 Anemia, unspecified; E78.5 Hyperlipidemia, unspecified; Z99.81 Dependence on supplemental oxygen; Z79.01 Long term (current) use of anticoagulants; Z79.51 Long term (current) use of inhaled steroids; Z79.4 Long term (current) use of insulin; Z86.73 Personal history of transient ischemic attack (TIA), and cerebral infarction without residual deficits; Z86.14 Personal history of Methicillin resistant Staphylococcus aureus infection; Z87.440 Personal history of urinary (tract) infections; Z87.891 Personal history of nicotine dependence; K21.9 Gastro-esophageal reflux disease without esophagitis; Z66 Do not resuscitate; Z88.0 Allergy status to penicillin; Z88.2 Allergy status to sulfonamides
CPT/HCPCS: 36415; 36416; 36600; 51702; 71045; 80048; 80051; 80053; 80202; 82330; 82805; 82962; 83605; 83735; 83880; 84145; 84484; 85025; 85378; 86403; 87070; 87077; 87186; 87205; 87635; 87641; 93005; 94640; 96365; 96367; 96372; 96375; 99285; G0378; J0692; J1815; J1940; J2919; J3370; J3372; J3480; J7050; J7626

== ENCOUNTER 2024-03-29 13:00 | Emergency (ER) | payer MEDICARE, MEDICAID, SELFPAY ==
[2024-03-29 13:00] VITALS: BP 95/35; PULSE 95; RESP 20; TEMP 36.4; O2SAT 99; BMI 42.7
--- NOTE | 2024-03-29 13:17 | W.ED.GIBLEED ---
HPI - GI Bleed General: Chief complaint: GI Bleed Stated complaint: GI bleed Time Seen by Provider: 03/29/24 13:05 Source: patient and EMS Mode of arrival: EMS Limitations: no limitations History of Present Illness: This patient was transported from [facility] where she is domiciled. Apparently the patient had a stool and there was concern about possible blood in manage apparently a guaiac test were done in the [facility] which is positive and therefore she was referred here. There EMS report states that she complained of abdominal pain but she currently states she has had no abdominal pain and is unclear why she is in the emergency department. She denies any symptoms of lightheadedness nausea vomiting diarrhea blood in her stools etc. She denies chest pain shortness of breath etc. Her [facility] record reveals that she takes a proton pump inhibitor as well as [place] Carafate as well as iron. Exacerbating factors: none Associated symptoms: Denies abdominal pain, chills, easy bruising, fever(s), headache(s), nausea, rash, syncope or vomiting Related Data Home Medications Medication Instructions Recorded Confirmed ropinirole 1 mg tablet 1 mg PO DAILY 07/18/19 03/08/24 docusate sodium 100 mg tablet 100 mg PO BID 01/06/20 03/08/24 (Stool Softener) ondansetron HCl 4 mg tablet 4 mg PO Q6H PRN Nausea 01/25/23 03/08/24 acetaminophen 325 mg tablet 650 mg PO Q4H PRN Pain OR FEVER 08/15/23 03/08/24 bisacodyl 10 mg rectal suppository 10 mg NM DAILY PRN Constipation 08/15/23 03/08/24 (Dulcolax (bisacodyl)) carboxymethylcellulose sodium 1 % 1 drp ophthalmic (eye) PRN DRY EYES 08/15/23 03/08/24 eye drops (Artificial Tears (carboxymethylcellulose)) duloxetine 60 mg capsule,delayed 60 mg PO DAILY 08/15/23 03/08/24 release hydrocodone 5 mg-acetaminophen 325 1 tab PO Q4H PRN Pain 08/15/23 03/08/24 mg tablet magnesium hydroxide 400 mg/5 mL 30 ml PO DAILY PRN Constipation 08/15/23 03/08/24 oral suspension (Milk of Magnesia) rosuvastatin 20 mg tablet 20 mg PO DAILY 08/15/23 03/08/24 sodium phosphates 19 gram-7 118 ml NM DAILY PRN Constipation 08/15/23 03/08/24 gram/118 mL enema (Fleet Enema) chlorhexidine gluconate 4 % See Rx Instructions .Route .COMPLEX 01/15/24 03/08/24 topical liquid (Hibiclens) cholecalciferol (vitamin D3) 1,250 1 mcg PO Q7D 01/15/24 03/08/24 mcg (50,000 unit) capsule diclofenac sodium 1 % topical gel See Rx Instructions .Route .COMPLEX 01/15/24 03/08/24 insulin lispro 100 unit/mL See Rx Instructions .Route .COMPLEX 01/15/24 03/08/24 subcutaneous pen (Humalog KwikPen (U-100) Insulin) mupirocin 2 % topical ointment 1 applic topical Q6D 01/15/24 03/08/24 nystatin 100,000 unit/gram topical 1 applic topical BID PRN SKIN 01/15/24 03/08/24 powder REDNESS albuterol sulfate 2.5 mg/3 mL 2.5 mg inhalation TID PRN copd 02/11/24 03/08/24 (0.083 %) solution for nebulization alprazolam 0.25 mg tablet 0.25 mg PO Q12H PRN Anxiety 02/11/24 03/08/24 cyanocobalamin (vitamin B-12) 100 mcg IM DAILY 03/08/24 03/08/24 1,000 mcg/mL injection kit insulin glargine 100 unit/mL 50 unit SUBCUT BID 03/08/24 03/08/24 subcutaneous solution potassium chloride 20 mEq 20 meq PO DAILY 03/08/24 03/08/24 tablet,extended release(part/cryst) (Klor-Con M) zinc oxide 10 % topical cream 1 applic topical DAILY 03/08/24 03/08/24 Previous Rx's Medication Instructions Recorded albuterol sulfate 90 mcg/actuation 1 inh inhalation Q6H PRN shortness 02/02/23 aerosol inhaler of breath or wheezing #8.5 grams fluticasone fur. 100 mcg-umeclid 1 inh inhalation DAILY #60 ea 02/02/23 62.5 mcg-vilant 25 mcg inhalat.powder (Trelegy Ellipta) magnesium oxide 400 mg (241.3 mg 400 mg PO BID #6 tabs 02/02/23 magnesium) tablet diltiazem HCl 180 mg 180 mg PO DAILY #30 caps 08/16/23 capsule,extended release 24 hr (Cardizem CD) furosemide 20 mg tablet (Lasix) 40 mg (2 x 20 mg) PO QAM 30 days 01/21/24 #60 tabs ferrous sulfate 325 mg (65 mg 325 mg PO BIDWM #60 tabs 02/13/24 iron) tablet pantoprazole 40 mg tablet,delayed 40 mg PO BIDWM #60 tabs 02/13/24 release sucralfate 1 gram tablet 1 g PO AC&BEDTIME #120 tabs 02/13/24 Allergies Allergy/AdvReac Type Severity Reaction Status Date / Time morphine Allergy ALGY-Rash Verified 02/27/24 01:53 quinine Allergy ALGY-Rash Verified 02/27/24 01:53 Sulfa (Sulfonamide Allergy ALGY-Rash Verified 02/27/24 01:53 Antibiotics) Penicillins AdvReac ALGY-Rash Verified 02/27/24 01:53 Review of Systems Const: Denies: fever(s) or chills Eyes: Denies: change in vision Card: Denies: chest pain, irregular heart rhythm, lightheadedness, syncope or pre-syncope Resp: Denies: dyspnea, productive cough or non-productive cough GI: Denies: abdominal pain, nausea, vomiting or diarrhea : Denies: flank pain, difficulty voiding or dysuria Musc: Denies: neck pain, back pain, extremity pain or extremity swelling Skin/Breast: Denies: rash Neuro: Denies: headache(s), numbness in extremities or weakness in extremities Ramsey/Lymph: Denies: easy bruising or easy bleeding PFS ED PFSH: Medical History Hypoxia Pneumonia Heart failure with preserved left ventricular function History of echocardiogram 08/2023 technically difficult study due to poor ultrasonic windows, grossly normal LV systolic function, grade 1 diastolic dysfunction, mild MR, mild TR, left atrial dilitation Osteoporosis DEXA 09/2023 Right femoral neck T score -4.2 and Z score -0.3; L spine T score 0.2, Z score 0.9, fracture risk 10 yr probability 45%, hip fracture 22.9% ESBL 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 difficile colitis Gastroesophageal reflux disease Hyperlipidemia On apixaban therapy History of ESBL E. coli infection History of MRSA infection History of small bowel obstruction Medically managed to date Diabetes mellitus Coronary artery disease HTN (hypertension), malignant COPD (chronic obstructive pulmonary disease) Morbid obesity Surgical History History of colonoscopy (~2013) History of bladder suspension procedure History of orthopedic surgery Wrist and left leg History of cholecystectomy History of tubal ligation History of appendectomy Family History Other CAD (coronary artery disease) Cancer Social History Smoking and tobacco/nicotine status: former use of tobacco/nicotine Quit status (tobacco/nicotine): has quit using Alcohol intake: never Substance/Drug Use: never Caregiver/support person: Yes (Son ) Housing: Prison Physical Exam Narrative: EXAM NARRATIVE: Patient appears to be comfortable and in no acute distress. She answers questions appropriately. She denies any complaints and desires to watch the baseball game. Const: COMMON NORMALS: no acute distress and patient oriented x3 GENERAL APPEARANCE: cooperative and comfortable NUTRITIONAL APPEARANCE: obese HENMT: COMMON NORMALS: Normal nasal mucous membranes and turbinates present, moist oral mucous membranes and oropharynx normal NOSE: Normal nasal mucous membranes and turbinates present Eye: COMMON NORMALS: Equal, round and reactive pupils present, EOMs intact bilaterally, conjunctivae normal and no scleral icterus CONJUNCTIVA: Yes conjunctivae normal PUPIL: Yes Equal, round and reactive pupils present Neck/C-Spine: COMMON NORMALS: full ROM, no lymphadenopathy and Thyroid normal THYROID: Thyroid normal Resp: COMMON NORMALS: normal respiratory effort, No retractions, No use of accessory muscles and clear to auscultation bilaterally AUSCULTATION: clear to auscultation bilaterally Cardio: COMMON NORMALS: regular rate, regular rhythm, No murmurs present (Cardio) and Peripheral pulses 2+ throughout RATE: regular rate RHYTHM: regular rhythm PERIPHERAL PULSES: Peripheral pulses 2+ throughout GI: COMMON NORMALS: Soft to palpation and non-tender INSPECTION: Yes central obesity PALPATION: Yes Soft to palpation RECTAL EXAM: heme negative stool : COMMON NORMALS: Yes no CVA tenderness BLADDER/KIDNEY EXAM: Yes no CVA tenderness Back/Pelvis: COMMON NORMALS: no CVA tenderness, thoracic and lumbar spine normal to inspection and no thoracic nor lumbar tenderness Extremity: COMMON NORMALS: normal to inspection, full ROM, no calf tenderness and no pedal edema Neuro: COMMON NORMALS: patient oriented x3, moves all extremities, no focal motor deficits and no sensory deficits noted Skin: NARRATIVE SKIN EXAM: Some erythema of the dermis in the intertriginous areas around the perineum but no skin breakdown satellite lesions etc. No drainage. Course Reevaluation(s): Reevaluation #1: Patient remained clinically stable with reassuring vital signs; no new or focal findings on repeat evaluation Time: 14:00 Vital Signs: Vital signs: Vital Signs Temperature 97.6 F 03/29/24 13:00 Pulse Rate 99 03/29/24 13:24 Respiratory Rate 20 H 03/29/24 13:00 Blood Pressure 95/35 03/29/24 13:24 Pulse Oximetry 97 03/29/24 13:24 Oxygen Delivery Me thod Nasal Cannula 03/29/24 13:24 Oxygen Flow Rate 4 03/29/24 13:24 MDM - GI Bleed Medical Decision Making This patient was transported to the Emergency Department as noted in HPI from the [facility] allegedly because they were concerned about blood in the stools. This patient has a history of chronic anemia and also takes iron per her med list. On presentation the patient denied any abdominal pain she was unaware of any blood or black tarry stools or any other concerns. Clinical examination was reassuring and that her abdominal examination revealed central obesity without any tenderness masses or peritoneal signs noted on her exam. Rectal examination revealed no evidence of melena or bright red blood. And the examining finger was guaiac negative. CBC as well as type and screen were obtained in anticipation of potential significant anemia however her hemoglobin is unchanged from that which we have on file here which varies anywhere from mid 70s to as high as 10. RDW is slightly elevated 19.1 and her platelet count is normal and her BUN is normal. Her vital signs are reassuring and she is clinically stable and there is no evidence at this time to suggest an ongoing active gastrointestinal bleed of significance. No indication for further emergency department evaluation based on current evidence and she is suitable to be discharged back to long-term care facility for follow-up. Lab Data 03/29/24 13:53 03/29/24 13:53 Laboratory Results WBC 10.34 10^3/uL (3.29-11.43) 03/29/24 13:53 RBC 3.04 10^6/uL (3.85-5.65) L 03/29/24 13:53 Hgb 8.00 g/dL (11.27-16.99) L 03/29/24 13:53 Hct 29.2 % (36-47) L 03/29/24 13:53 MCV 96.1 fl (85-98) 03/29/24 13:53 MCH 26.3 pg (27-33) L 03/29/24 13:53 MCHC 27.4 g/dL (30-55) L 03/29/24 13:53 RDW 19.1 % (12.1-15.1) H 03/29/24 13:53 Plt Count 143 10^3/cmm (157-399) L 03/29/24 13:53 MPV 10.4 fL (7.4-10.4) 03/29/24 13:53 Neut % (Auto) 75.3 % 03/29/24 13:53 Lymph % (Auto) 17.6 % 03/29/24 13:53 Nicollet % (Auto) 4.5 % 03/29/24 13:53 Eos % (Auto) 1.2 % 03/29/24 13:53 Baso % (Auto) 1.0 % 03/29/24 13:53 Neut # (Auto) 7.79 10^3/uL (1.8-7.7) H 03/29/24 13:53 Lymph # (Auto) 1.8 10^3/uL (0.8-4.8) 03/29/24 13:53 Nicollet # (Auto) 0.5 10^3/uL (0.2-0.9) 03/29/24 13:53 Eos # (Auto) 0.1 10^3/uL (0.0-0.8) 03/29/24 13:53 Baso # (Auto) 0.1 10^3/uL (0.0-0.1) 03/29/24 13:53 Nucleated RBC % (auto) 0 % 03/29/24 13:53 Nucleated RBCs # 0.0 /100WBC 03/29/24 13:53 Sodium 139 mmol/L (136-145) 03/29/24 13:53 Potassium 4.2 mmol/L (3.5-5.1) 03/29/24 13:53 Chloride 92 mmol/L (98-107) L 03/29/24 13:53 Carbon Dioxide 35 mmol/L (22-29) H 03/29/24 13:53 Anion Gap 16.2 (5-19) 03/29/24 13:53 BUN 16 mg/dL (8-23) 03/29/24 13:53 Creatinine 0.9 mg/dL (0.5-0.9) 03/29/24 13:53 GFR Calculation Not Reportable 03/29/24 13:53 Glucose 117 mg/dL (65-115) H 03/29/24 13:53 Calculated Osmolality 290 mOsm/kg (285-295) 03/29/24 13:53 Calcium 8.7 mg/dL (8.5-10.5) 03/29/24 13:53 Total Bilirubin 0.3 mg/dL (0.15-1.2) 03/29/24 13:53 AST 13 U/L (0-32) 03/29/24 13:53 ALT 11 U/L (0-33) 03/29/24 13:53 Alkaline Phosphatase 92 U/L (35-105) 03/29/24 13:53 Total Protein 5.6 g/dL (6.6-8.7) L 03/29/24 13:53 Albumin 3.0 g/dL (3.5-5.2) L 03/29/24 13:53 Globulin 2.6 g/dL (1.3-4.6) 03/29/24 13:53 No radiology studies performed this visit EKG Data EKG 1: I personally reviewed and interpreted this EKG as follows: Interpretation: EKG reveals a ventricular rate of 96 bpm. Prolonged NM interval consistent with a first-degree AV block. Normal QRS duration, corrected QT interval and normal axis. Q waves are present in 3 and aVF suggestive of possible remote inferior wall CA. Low voltage across the precordium but no acute ST-T wave changes. Essentially unchanged from the most recent tracings within our system Discharge Plan Discharge Patient Disposition: [facility] Clinical Impression: Chronic anemia Condition: Stable Discharge Orders: Discharge ED (Routine); Ordered 03/29/24 Ordered By: Jeff Velez Referrals: Elaine Topete PA [Primary Care Provider] - Discharge Diet: Usual diet Discharge Activity: Resume usual activity Activity Restrictions/Additional Instructions: Baseline emergency for reevaluation there is no evidence of any change in your blood count and testing of did not reveal any evidence of blood in your stool. Based upon your presentation today does not appear that you are having any serious active gastrointestinal bleeding. Your safe to be discharged back to your usual domicile with follow-up by your attending physician. If you develop any new or worsening symptoms you are welcome to return to the emergency department for reevaluation. Coding Level of Care Code ED Configuration Manager for Gema Hatfield
[2024-03-29 13:24] VITALS: BP 95/35; PULSE 99; O2SAT 97
--- NOTE | 2024-03-29 14:00 | ECG_ITS ---
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 Measurements Intervals Randolph Rate: 96 P: -82 WY: 230 QRS: -11 QRSD: 77 T: 60 QT: 348 QTc: 442 Interpretive Statements SINUS RHYTHM WITH FIRST DEGREE AV BLOCK LOW QRS VOLTAGE IN PRECORDIAL LEADS [QRS DEFLECTION < 1.0 mV IN CHEST LEADS] POSSIBLE ANTERIOR MYOCARDIAL INFARCTION , PROBABLY OLD [30 ms Q WAVE IN V3/V4, OR R < 0.2 mV IN V4] INFERIOR MYOCARDIAL INFARCTION , PROBABLY OLD [40+ ms Q WAVE AND/OR ST/T ABNORMALITY IN II/aVF] Compared to ECG 03/09/2024 00:08:17 No significant changes Electronically Signed On 03-29-2024 20:01:35 CDT by Leonel Rodriguez M.D. [id number] f
[2024-03-29 14:03] LABS: Basophils # 0.1 10^3/uL (0.0-0.1); Eosinophils # 0.1 10^3/uL (0.0-0.8); Eosinophils % 1.2 %; Hematocrit 29.2 % (36-47); Lymphocytes # 1.8 10^3/uL (0.8-4.8); Lymphocytes % 17.6 %; Mean Corpuscular HGB Conc 27.4 g/dL (30-55); Mean Corpuscular Hemoglobin 26.3 pg (27-33); Mean Corpuscular Volume 96.1 fl (85-98); Mean Platelet Volume 10.4 fL (7.4-10.4); Monocytes # 0.5 10^3/uL (0.2-0.9); Monocytes % 4.5 %; Neutrophils # 7.79 10^3/uL (1.8-7.7); Neutrophils % 75.3 %; Nucleated Red Blood Cells % 0 %; Platelet Count 143 10^3/cmm (157-399); Red Blood Count 3.04 10^6/uL (3.85-5.65); Red Cell Distribution Width 19.1 % (12.1-15.1); White Blood Count 10.34 10^3/uL (3.29-11.43)
[2024-03-29 14:20] LABS: Alanine Aminotransferase 11 U/L (0-33); Alkaline Phosphatase 92 U/L (35-105); Anion Gap 16.2 (5-19); Aspartate Amino Transferase 13 U/L (0-32); Blood Urea Nitrogen 16 mg/dL (8-23); Calcium 8.7 mg/dL (8.5-10.5); Carbon Dioxide 35 mmol/L (22-29); Chloride 92 mmol/L (98-107); Creatinine Clr Calc Pharmacy 61.3873; Globulin 2.6 g/dL (1.3-4.6); Glucose 117 mg/dL (65-115); Osmolality Calculated 290 mOsm/kg (285-295); Potassium 4.2 mmol/L (3.5-5.1); Sodium 139 mmol/L (136-145); Total Bilirubin 0.3 mg/dL (0.15-1.2); Total Protein 5.6 g/dL (6.6-8.7)
[2024-03-29 15:13] VITALS: BP 131/63; PULSE 97; O2SAT 100
[2024-03-29 16:47] VITALS: BP 144/56; PULSE 91; O2SAT 100
== END 2024-03-29 16:42 ==
PROVIDERS: Emergency Provider Emergency Medicine; PCP Physician Assistant
DX: D64.89 Other specified anemias (principal); I44.0 Atrioventricular block, first degree; Z87.891 Personal history of nicotine dependence; I11.0 Hypertensive heart disease with heart failure; I50.9 Heart failure, unspecified; Z86.73 Personal history of transient ischemic attack (TIA), and cerebral infarction without residual deficits; E78.5 Hyperlipidemia, unspecified; E11.9 Type 2 diabetes mellitus without complications; I25.10 Atherosclerotic heart disease of native coronary artery without angina pectoris; J44.9 Chronic obstructive pulmonary disease, unspecified
CPT/HCPCS: 36415; 80053; 85025; 86850; 86900; 93005; 99284

== ENCOUNTER 2024-04-04 00:06 | Inpatient (IN) | payer MEDICARE, MEDICAID, SELFPAY ==
[2024-04-04] VITALS (24 sets, daily range): BP systolic 100–142; BP diastolic 48–81; PULSE 78–99; RESP 15–24; TEMP 36.2–36.8; O2SAT 90–100; BMI 48.0; BMI 43.0
--- NOTE | 2024-04-04 00:16 | XRR_ITS ---
PROCEDURE INFORMATION: Exam: XR Chest Exam date and time: 04/04/2024 12:31 AM Age: 78 years old Clinical indication: Shortness of breath TECHNIQUE: Imaging protocol: Radiologic exam of the chest. Views: 1 view. COMPARISON: CR (CHEST, ) 03/08/2024 5:27 PM FINDINGS: Lungs: Bibasilar hazy airspace opacities. Pleural spaces: Probable [id number]-powu-right pleural effusions. No distinct pneumothorax. Heart/Mediastinum: Cardiomediastinal silhouette is midline and partially obscured. Vasculature: Calcific disease of the aorta. Bones/joints: No distinct acute osseous findings. XR/XR chest 1V portable [id number] IMPRESSION: 1. Probable zpwp-[id number]-[id number]-right pleural effusions. 2. Bibasilar hazy airspace opacities. This may represent atelectasis, effusion, and/or infiltrate.
[2024-04-04 00:28] LABS: Mean Corpuscular HGB Conc 27.3 g/dL (30-55); Mean Corpuscular Hemoglobin 25.6 pg (27-33); Mean Platelet Volume 10.9 fL (7.4-10.4); Platelet Count 227 10^3/cmm (157-399); Red Blood Count 2.34 10^6/uL (3.85-5.65); Red Cell Distribution Width 18.8 % (12.1-15.1)
--- NOTE | 2024-04-04 00:29 | W.ED.RECABL ---
HPI - Recheck/Abnormal Lab/Rx General: Chief Complaint: Recheck/Abnormal Lab/Rx Stated Complaint: abnormal labs Time Seen by Provider: 04/04/24 00:14 History of Present Illness: 78-year-old female with history of severe morbid obesity, COPD, chronic hypoxemic respiratory failure on 3 L nasal cannula at all times, CVA, A-fib, diabetes, hypertension and coronary artery disease who presents to the emergency room with concern for anemia. Apparently she had labs checked and her hemoglobin is down to 5.5 according to EMS. She was bit less responsive than usual on presentation. This seems to have improved some now. No reports of fevers. No known GI bleeding. She is chronically anemic. Related Data Home Medications Medication Instructions Recorded Confirmed ropinirole 1 mg tablet 1 mg PO DAILY 07/18/19 03/08/24 docusate sodium 100 mg tablet 100 mg PO BID 01/06/20 03/08/24 (Stool Softener) ondansetron HCl 4 mg tablet 4 mg PO Q6H PRN Nausea 01/25/23 03/08/24 acetaminophen 325 mg tablet 650 mg PO Q4H PRN Pain OR FEVER 08/15/23 03/08/24 bisacodyl 10 mg rectal suppository [address] DAILY PRN Constipation 08/15/23 03/08/24 (Dulcolax (bisacodyl)) carboxymethylcellulose sodium 1 % 1 drp ophthalmic (eye) PRN DRY EYES 08/15/23 03/08/24 eye drops (Artificial Tears (carboxymethylcellulose)) duloxetine 60 mg capsule,delayed 60 mg PO DAILY 08/15/23 03/08/24 release hydrocodone 5 mg-acetaminophen 325 1 tab PO Q4H PRN Pain 08/15/23 03/08/24 mg tablet magnesium hydroxide 400 mg/5 mL 30 ml PO DAILY PRN Constipation 08/15/23 03/08/24 oral suspension (Milk of Magnesia) rosuvastatin 20 mg tablet 20 mg PO DAILY 08/15/23 03/08/24 sodium phosphates 19 gram-[address] DAILY PRN Constipation 08/15/23 03/08/24 gram/118 mL enema (Fleet Enema) chlorhexidine gluconate 4 % See Rx Instructions .Route .COMPLEX 01/15/24 03/08/24 topical liquid (Hibiclens) cholecalciferol (vitamin D3) 1,250 1 mcg PO Q7D 01/15/24 03/08/24 mcg (50,000 unit) capsule diclofenac sodium 1 % topical gel See Rx Instructions .Route .COMPLEX 01/15/24 03/08/24 insulin lispro 100 unit/mL See Rx Instructions .Route .COMPLEX 01/15/24 03/08/24 subcutaneous pen (Humalog KwikPen (U-100) Insulin) mupirocin 2 % topical ointment 1 applic topical Q6D 01/15/24 03/08/24 nystatin 100,000 unit/gram topical 1 applic topical BID PRN SKIN 01/15/24 03/08/24 powder REDNESS albuterol sulfate 2.5 mg/3 mL 2.5 mg inhalation TID PRN copd 02/11/24 03/08/24 (0.083 %) solution for nebulization alprazolam 0.25 mg tablet 0.25 mg PO Q12H PRN Anxiety 02/11/24 03/08/24 cyanocobalamin (vitamin B-12) 100 mcg IM DAILY 03/08/24 03/08/24 1,000 mcg/mL injection kit insulin glargine 100 unit/mL 50 unit SUBCUT BID 03/08/24 03/08/24 subcutaneous solution potassium chloride 20 mEq 20 meq PO DAILY 03/08/24 03/08/24 tablet,extended release(part/cryst) (Klor-Con M) zinc oxide 10 % topical cream 1 applic topical DAILY 03/08/24 03/08/24 Previous Rx's Medication Instructions Recorded albuterol sulfate 90 mcg/actuation 1 inh inhalation Q6H PRN shortness 02/02/23 aerosol inhaler of breath or wheezing #8.5 grams fluticasone fur. 100 mcg-umeclid 1 inh inhalation DAILY #60 ea 02/02/23 62.5 mcg-vilant 25 mcg inhalat.powder (Trelegy Ellipta) magnesium oxide 400 mg (241.3 mg 400 mg PO BID #6 tabs 02/02/23 magnesium) tablet diltiazem HCl 180 mg 180 mg PO DAILY #30 caps 08/16/23 capsule,extended release 24 hr (Cardizem CD) furosemide 20 mg tablet (Lasix) 40 mg (2 x 20 mg) PO QAM 30 days 01/21/24 #60 tabs ferrous sulfate 325 mg (65 mg 325 mg PO BIDWM #60 tabs 02/13/24 iron) tablet pantoprazole 40 mg tablet,delayed 40 mg PO BIDWM #60 tabs 02/13/24 release sucralfate 1 gram tablet 1 g PO AC&BEDTIME #120 tabs 02/13/24 Allergies Allergy/AdvReac Type Severity Reaction Status Date / Time morphine Allergy ALGY-Rash Verified 02/27/24 01:53 quinine Allergy ALGY-Rash Verified 02/27/24 01:53 Sulfa (Sulfonamide Allergy ALGY-Rash Verified 02/27/24 01:53 Antibiotics) Penicillins AdvReac ALGY-Rash Verified 02/27/24 01:53 Review of Systems General: Reports: ROS unobtainable due to medical condition and ROS unobtainable due to mental status [facility] PFSH: Medical History Hypoxia Pneumonia Heart failure with preserved left ventricular function History of echocardiogram 08/2023 technically difficult study due to poor ultrasonic windows, grossly normal LV systolic function, grade 1 diastolic dysfunction, mild MR, mild TR, left atrial dilitation Osteoporosis DEXA 09/2023 Right femoral neck T score -4.2 and Z score -0.3; L spine T score 0.2, Z score 0.9, fracture risk 10 yr probability 45%, hip fracture 22.9% ESBL 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 difficile colitis Gastroesophageal reflux disease Hyperlipidemia On apixaban therapy History of ESBL E. coli infection History of MRSA infection History of small bowel obstruction Medically managed to date Diabetes mellitus Coronary artery disease HTN (hypertension), malignant COPD (chronic obstructive pulmonary disease) Morbid obesity Surgical History History of colonoscopy (~2013) History of bladder suspension procedure History of orthopedic surgery Wrist and left leg History of cholecystectomy History of tubal ligation History of appendectomy Family History Other CAD (coronary artery disease) Cancer Social History Smoking and tobacco/nicotine status: former use of tobacco/nicotine Quit status (tobacco/nicotine): has quit using Alcohol intake: never Substance/Drug Use: never Caregiver/support person: Yes (Son ) Housing: [facility] Physical Exam Narrative: EXAM NARRATIVE: General: Alert, no acute distress. Skin: Warm, dry. Head: Normocephalic, atraumatic. Neck: Supple, trachea midline. Eye: Extraocular movements are intact. Ears, nose, mouth and throat: mucosa moist. Cardiovascular: Regular, Normal peripheral perfusion. Respiratory: Coarse, tachypneic, mild increased work of breathing Gastrointestinal: Soft, Nontender, Non distended, Normal bowel sounds. Musculoskeletal: Normal ROM, no deformity. Neurological: Alert but not oriented, No focal neurological deficit observed. Psychiatric: Patient seems confused/agitated. Course Vital Signs: Vital signs: Vital Signs Temperature 97.8 F 04/04/24 02:23 Pulse Rate 85 04/04/24 02:30 Respiratory Rate 16 04/04/24 02:30 Blood Pressure 114/56 04/04/24 02:30 Pulse Oximetry 96 04/04/24 02:30 Oxygen Delivery Me thod Room Air 04/04/24 02:30 Oxygen Flow Rate 6 04/04/24 00:08 Fraction of Inspir ed Oxygen 40 04/04/24 00:40 MDM - Recheck/Abnormal Lab/Rx Medical Decision Making Lab Review: Laboratory results were reviewed and interpreted by myself the emergency room physician. Patient is anemic with a hemoglobin of 6. Looking back she was 8 recently. This may be somewhat delusional and she is in heart failure with some fluid overload. proBNP is elevated at 2500. This is higher than her baseline. Chest x-ray: Congestion, cardiomegaly. No pneumothorax. This was reviewed and interpreted by myself the ER physician. CT of the chest abdomen pelvis. Bilateral pleural effusions. Hepatomegaly. No other significant findings. This was reviewed and interpreted by myself the emergency room physician. I also reviewed the radiology report. Consultation: I spoke with Dr. Bolivar. He recommends CT of chest abdomen pelvis. This is not done. He agrees to admission. Assessment and plan: Anemia Congestive heart failure Acute on chronic hypoxemic respiratory failure Pleural effusion Possible congestive heart failure ?BiPAP?IV Lasix?2 units PRBCs ordered. -I discussed the patient with the hospitalist on-call who is admitting the patient. - Discussed findings and plan with patient. Answered any questions. - All laboratory values were reviewed and interpreted personally by myself, the ER physician - All imaging was reviewed and interpreted personally by myself, the ER physician. - Evaluation and treatment of this problem were appropriate in the emergency setting Lab Data 04/04/24 00:20 04/04/24 00:20 Radiology Impressions Chest X-Ray 04/04/24 00:16 IMPRESSION: 1. Probable pfgm-ayzzwfw-yizj-right pleural effusions. 2. Bibasilar hazy airspace opacities. This may represent atelectasis, effusion, and/or infiltrate. Chest/Abdomen/Pelvis CT 04/04/24 01:28 IMPRESSION: Moderate-sized right and small left pleural effusions. IMPRESSION: 1. Questionable cirrhotic appearance of the liver. 2. No distinct acute pathologic findings. Laboratory Results WBC 10.70 10^3/uL (3.29-11.43) 04/04/24 00:20 RBC 2.34 10^6/uL (3.85-5.65) L 04/04/24 00:20 Hgb 6.00 g/dL (11.27-16.99) L* 04/04/24 00:20 Hct 22.0 % (36-47) L 04/04/24 00:20 MCV 94.0 fl (85-98) 04/04/24 00:20 MCH 25.6 pg (27-33) L 04/04/24 00:20 MCHC 27.3 g/dL (30-55) L 04/04/24 00:20 RDW 18.8 % (12.1-15.1) H 04/04/24 00:20 Plt Count 227 10^3/cmm (157-399) 04/04/24 00:20 MPV 10.9 fL (7.4-10.4) H 04/04/24 00:20 Lymph % (Auto) Not Reportable 04/04/24 00:20 [place] % (Auto) Not Reportable 04/04/24 00:20 Lymph # (Auto) Not Reportable 04/04/24 00:20 [place] # (Auto) Not Reportable 04/04/24 00:20 Total Counted 100 (0-100) 04/04/24 00:20 Atypical Lymphs % Not Reportable 04/04/24 00:20 Absolute Neutrophils 6.6 10^3/cmm (1.4-6.5) H 04/04/24 00:20 Segmented Neutrophils 59 % 04/04/24 00:20 Band Neutrophils 3.0 % 04/04/24 00:20 Lymphocytes (Manual) 25 % 04/04/24 00:20 Monocytes (Manual) 4.0 % 04/04/24 00:20 Absolute Monocytes 0.4 10^3/cmm (0.1-0.6) 04/04/24 00:20 Eosinophils (Manual) 5 % 04/04/24 00:20 Absolute Eosinophils 0.5 10^3/cmm (0.0-0.7) 04/04/24 00:20 Basophils (Manual) 0.0 % 04/04/24 00:20 Absolute Basophils 0.0 10^3/cmm (0.0-0.2) 04/04/24 00:20 Myelocytes 2.0 % 04/04/24 00:20 Promyelocytes 2.0 % 04/04/24 00:20 Platelet Estimate Normal (Normal) 04/04/24 00:20 PT 15.20 SECONDS (12.1-14.9) H 04/04/24 00:20 INR 1.16 (0.8-1.2) 04/04/24 00:20 APTT 34.4 SECONDS (23.9-36.7) 04/04/24 00:20 Specimen Type Arterial 04/04/24 00:21 Sample Site Brachial, right 04/04/24 00:21 ABG pH 7.40 (7.35-7.45) 04/04/24 00:21 ABG pCO2 66.7 mmHg (35-45) H* 04/04/24 00:21 ABG pO2 77.5 mmHg (80.0-100.0) L 04/04/24 00:21 ABG HCO3 41.3 mmol/L (22-26) H 04/04/24 00:21 ABG O2 Saturation 95.8 04/04/24 00:21 ABG Base Excess 15.1 mmol/L (-2.0-2.0) H 04/04/24 00:21 Monico Test N/a 04/04/24 00:21 A-a O2 Gradient 0.0 mmHg (5-10) L 04/04/24 00:21 Hematocrit 18.3 % (37-47) L 04/04/24 00:21 Hgb O2 Saturation 92.3 % (95-100) L 04/04/24 00:21 Carboxyhemoglobin 2.2 %THgb (0.4-20.1) 04/04/24 00:21 Methemoglobin 1.5 % (0.4-1.5) 04/04/24 00:21 Total Hemoglobin 6.0 g/dL (12-16) L 04/04/24 00:21 Sodium 138.0 mmol/L (131-143) 04/04/24 00:21 Potassium 4.0 mmol/L (3.5-5.0) 04/04/24 00:21 Glucose 123.0 mg/dL (70-115) H 04/04/24 00:21 Ionized Calcium 1.2 mmol/L (1.1-1.4) 04/04/24 00:21 O2 Delivery Device Nc 04/04/24 00:21 O2 Liters/Min 6.0 % 04/04/24 00:21 Assistant [employer] Shift Manager ID [email or web address] 04/04/24 00:21 Sodium 137 mmol/L (136-145) 04/04/24 00:20 Potassium 4.6 mmol/L (3.5-5.1) 04/04/24 00:20 Chloride 93 mmol/L (98-107) L 04/04/24 00:20 Carbon Dioxide 39 mmol/L (22-29) H 04/04/24 00:20 Anion Gap 9.6 (5-19) 04/04/24 00:20 BUN 13 mg/dL (8-23) 04/04/24 00:20 Creatinine 0.9 mg/dL (0.5-0.9) 04/04/24 00:20 GFR Calculation Not Reportable 04/04/24 00:20 Glucose 118 mg/dL (65-115) H 04/04/24 00:20 Calculated Osmolality 285 mOsm/kg (285-295) 04/04/24 00:20 Lactic Acid 1.4 mmol/L (0.5-2.2) 04/04/24 00:20 Calcium 8.6 mg/dL (8.5-10.5) 04/04/24 00:20 Total Bilirubin 0.3 mg/dL (0.15-1.2) 04/04/24 00:20 AST 13 U/L (0-32) 04/04/24 00:20 ALT 9 U/L (0-33) 04/04/24 00:20 Alkaline Phosphatase 96 U/L (35-105) 04/04/24 00:20 NT-Pro-B Natriuret Pep 2508 pg/mL (0-450) H 04/04/24 00:20 Total Protein 6.0 g/dL (6.6-8.7) L 04/04/24 00:20 Albumin 3.4 g/dL (3.5-5.2) L 04/04/24 00:20 Globulin 2.6 g/dL (1.3-4.6) 04/04/24 00:20 Blood Type O Positive 04/04/24 00:20 Rho(D) Type Rh positive 04/04/24 00:20 Antibody Screen Negative 04/04/24 00:20 Crossmatch See Detail 04/04/24 00:20 All radiology interpretation(s) finalized by discharge Discharge Plan Discharge Patient Disposition: Admitted As Inpatient Clinical Impression: Acute on chronic hypoxic respiratory failure Anemia Qualifiers: Anemia type: unspecified type Qualified Code(s): D64.9 - Anemia, unspecified Condition: Stable Coding Level of Care Code ED Marketing Project Lead for Gema Hatfield
[2024-04-04 00:32] LABS: ABG PCO2 66.7 mmHg (35-45); Arterial Blood Gas Hematocrit 18.3 % (37-47); Base Excess ABG 15.1 mmol/L (-2.0-2.0); Blood Gas Sample Site Brachial, right; Blood Gas Sample Type Arterial; Carboxyhemoglobin 2.2 %THgb (0.4-20.1); HCO3 ABG 41.3 mmol/L (22-26); HGB O2 Sat 92.3 % (95-100); Ionized Calcium Level - ABG 1.2 mmol/L (1.1-1.4); Methemoglobin 1.5 % (0.4-1.5); Oxygen Device NC; Oxygen Saturation ABG 95.8; PO2 ABG 77.5 mmHg (80.0-100.0)
[2024-04-04 00:40] LABS: INR 1.16 (0.8-1.2)
[2024-04-04] MEDS: albuterol 2.5 mg/3 mL Neb INHALATION (00:40)
[2024-04-04] MEDS: ipratropium-albuterol 3 mL Neb INHALATION (00:40)
[2024-04-04 00:41] LABS: Partial Thromboplastin Time 34.4 SECONDS (23.9-36.7)
[2024-04-04 00:45] LABS: Alanine Aminotransferase 9 U/L (0-33); Albumin Level 3.4 g/dL (3.5-5.2); Alkaline Phosphatase 96 U/L (35-105); Aspartate Amino Transferase 13 U/L (0-32); Blood Urea Nitrogen 13 mg/dL (8-23); Calcium 8.6 mg/dL (8.5-10.5); Carbon Dioxide 39 mmol/L (22-29); Chloride 93 mmol/L (98-107); Creatinine Clr Calc Pharmacy 65.8139; Globulin 2.6 g/dL (1.3-4.6); Glucose 118 mg/dL (65-115); Osmolality Calculated 285 mOsm/kg (285-295); Sodium 137 mmol/L (136-145); Total Bilirubin 0.3 mg/dL (0.15-1.2)
[2024-04-04 00:46] LABS: Lactic Sepsis W/Reflex 1.4 mmol/L (0.5-2.2)
[2024-04-04 00:57] LABS: Anion Gap 9.6 (5-19); Potassium 4.6 mmol/L (3.5-5.1)
[2024-04-04 01:03] LABS: Absolute Eosinophils 0.5 10^3/cmm (0.0-0.7); Absolute Neutrophil 6.6 10^3/cmm (1.4-6.5); Absolute Segmented Neutrophil 6.3 10/cmm (1.6-7.1); Band Neutrophils Absolute 0.3 10^3/cmm (0.0-1.2); Eosinophils 5 %; Lymphocytes 25 %; Monocytes Absolute 0.4 10^3/cmm (0.1-0.6); Platelet Estimate Normal (Normal); Segmented Neutrophils 59 %; Slide Review Slide Review Perform; Total Cells Counted 100 (0-100)
--- NOTE | 2024-04-04 01:28 | CTR_ITS ---
PROCEDURE INFORMATION: Exam: CT Chest Without Contrast; Diagnostic Exam date and time: 04/04/2024 1:46 AM Age: 78 years old Clinical indication: Other: Abd pain, abnormal chest xray, SOB; Shortness of breath; Prior surgery; Surgery date: 6+ months; Surgery type: Tubal, choley, appy; Additional info: Abnormal chest xray, duplicate order TECHNIQUE: Imaging protocol: Diagnostic computed tomography of the chest without contrast. Radiation optimization: All CT scans at this facility use at least one of these dose optimization techniques: automated exposure control; mA and/or kV adjustment per patient size (includes targeted exams where dose is matched to clinical indication); or iterative reconstruction. COMPARISON: CR (CHEST, ) 04/04/2024 12:31 AM RADIATION DOSE METRICS: Total DLP (mGy-cm): 0 FINDINGS: Lungs: Mild bibasilar atelectasis. Pleural spaces: Moderate-sized right and small left pleural effusions. Heart: Heart is normal in size. No pericardial effusion. Coronary arteries: Coronary artery calcifications and/or stents. Lymph nodes: No distinct pathologically enlarged lymphadenopathy. Vasculature: Mild scattered calcific disease of the thoracic aorta. Bones/joints: Multilevel thoracic spondylosis. Multilevel thoracic bridging osteophytosis. Soft tissues: Visualized superficial soft tissues are within normal limits. Other findings: Image quality is suboptimal secondary to technique and beam hardening artifact. Parts of the central abdomen are excluded from the field of view. PROCEDURE INFORMATION: Exam: CT Abdomen And Pelvis Without Contrast Exam date and time: 04/04/2024 1:46 AM Age: 78 years old Clinical indication: Other: Abd pain, abnormal chest xray, SOB; Shortness of breath; Prior surgery; Surgery date: 6+ months; Surgery type: Tubal, choley, appy; Additional info: Abnormal chest xray, duplicate order TECHNIQUE: Imaging protocol: Computed tomography of the abdomen and pelvis without contrast. Radiation optimization: All CT scans at this facility use at least one of these dose optimization techniques: automated exposure control; mA and/or kV adjustment per patient size (includes targeted exams where dose is matched to clinical indication); or iterative reconstruction. COMPARISON: CT abdomen pelvis wo con [id number] 08/16/2023 3:45 PM RADIATION DOSE METRICS: Total DLP (mGy-cm): 1416.54 FINDINGS: Liver: Questionable cirrhotic appearance of the liver. Questionable cirrhotic appearance of the liver. Gallbladder and biliary ducts: Gallbladder is poorly visualized and may be absent. No distinct biliary ductal dilation. Pancreas: Pancreas is partially imaged and poorly visualized without large obvious abnormality. Spleen: The spleen is unremarkable. Adrenal glands: The adrenal glands are unremarkable. Kidneys and ureters: Mild bilateral renal atrophy. Stomach and bowel: Scattered colonic diverticulosis. No distinct focal CT evidence of acute diverticulitis. Nonobstructive bowel-gas pattern. Appendix: No evidence of acute appendicitis. Intraperitoneal space: No significant free fluid in the abdomen or pelvis. Vasculature: Moderate scattered calcific disease of the abdominal aorta and its major branches. No abdominal aortic aneurysm. Lymph nodes: No distinct pathologically enlarged lymphadenopathy. Urinary bladder: Urinary bladder is within normal limits. Reproductive: Uterus is absent. Bones/joints: Partially imaged intramedullary mile fixation of the left femur. Multilevel lumbar spondylosis. Chronic compression deformities of multiple vertebral bodies, most prominent at L2. Soft tissues: Superficial soft tissues demonstrate moderate edema about the bilateral flanks. Small fat containing umbilical hernia. Other findings: Image quality is suboptimal secondary to technique and beam hardening artifact. Parts of the central abdomen are excluded from the field of view. CT/[place] [id number] IMPRESSION: Moderate-sized right and small left pleural effusions. IMPRESSION: 1. Questionable cirrhotic appearance of the liver. 2. No distinct acute pathologic findings.
[2024-04-04 02:14] LABS: NT Pro B Type Natriuretic Pept 2508 pg/mL (0-450)
[2024-04-04] MEDS: FUROsemide 10 mg/mL SDV 10mL 60 MG IVP (02:18)
--- NOTE | 2024-04-04 03:01 | PM.HP ---
Providers/Chief Complaint Primary Care Provider: Elaine Topete Chief Complaint: abnormal labs History of Present Illness 78-year-old lady with history of COPD, chronic CHF, type unknown, poor ultrasonic windows on echocardiogram, history of atrial fibrillation, not on anticoagulation, history of anemia, GERD, former smoker, history of TIA, CAD, DM 2, HTN, HLD, RLS, C. difficile colitis, morbid obesity, hospitalized in the beginning of the month due to COPD and pneumonia at a time treated with a course of steroid, antibiotic, normally on 3 L of oxygen. She was referred to emergency room for assessment due to abnormal labs with finding of hemoglobin of 5.6 reported on outpatient workup. Here hemoglobin is 6. Hemoglobin was 8 about a week back. Platelets normal. On anticoagulation with Eliquis in the past but not currently. In ER she is also noted to require 6 L of nasal cannula oxygen supplementation, slightly more difficult to arouse on presentation. Son states has been out of it the entire day. ABG obtained with finding of hypercapnia 66.7, pH 7.4, baseline CO2 usually low to high 50s. Was started on BiPAP in ER. Noted to have cardiomegaly, NT proBNP elevated 2508. CT chest abdomen pelvis with moderate size right and small left pleural effusions, questionable cirrhotic appearance of the liver. Review of Systems Const: Denies: fever(s), chills, body aches or malaise ENMT: Denies: throat pain Card: Denies: chest pain, edema, pre-syncope or dyspnea on exertion Resp: Denies: dyspnea, productive cough, change in phlegm color or hemoptysis GI: Denies: abdominal pain, nausea, vomiting, diarrhea, constipation, hematochezia or melena : Denies: flank pain, urinary frequency or hematuria Musc: Denies: back pain, joint swelling or joint redness Skin/Breast: Denies: rash or new lesions Neuro: Reports: confusion; Denies: headache(s) or dizziness Medications/Allergies Home Medications Medication Instructions Recorded Confirmed Last Taken Type ropinirole 1 mg tablet 1 mg PO DAILY 07/18/19 03/08/24 03/07/24 17:00 History docusate sodium 100 mg tablet 100 mg PO BID 01/06/20 03/08/24 03/08/24 09:00 History (Stool Softener) ondansetron HCl 4 mg tablet 4 mg PO Q6H PRN Nausea 01/25/23 03/08/24 02/23/24 06:47 History albuterol sulfate 90 mcg/actuation 1 inh inhalation Q6H PRN shortness 02/02/23 03/08/24 03/07/24 14:21 Rx aerosol inhaler of breath or wheezing #8.5 grams fluticasone fur. 100 mcg-umeclid 1 inh inhalation DAILY #60 ea 02/02/23 03/08/24 03/08/24 Rx 62.5 mcg-vilant 25 mcg inhalat.powder (Trelegy Ellipta) magnesium oxide 400 mg (241.3 mg 400 mg PO BID #6 tabs 02/02/23 03/08/24 03/08/24 08:00 Rx magnesium) tablet acetaminophen 325 mg tablet 650 mg PO Q4H PRN Pain OR FEVER 08/15/23 03/08/24 03/02/24 17:07 History bisacodyl 10 mg rectal suppository 10 mg OK DAILY PRN Constipation 08/15/23 03/08/24 Unknown History (Dulcolax (bisacodyl)) carboxymethylcellulose sodium 1 % 1 drp ophthalmic (eye) PRN DRY EYES 08/15/23 03/08/24 Unknown History eye drops (Artificial Tears (carboxymethylcellulose)) duloxetine 60 mg capsule,delayed 60 mg PO DAILY 08/15/23 03/08/24 03/08/24 08:00 History release hydrocodone 5 mg-acetaminophen 325 1 tab PO Q4H PRN Pain 08/15/23 03/08/24 03/06/24 08:03 History mg tablet magnesium hydroxide 400 mg/5 mL 30 ml PO DAILY PRN Constipation 08/15/23 03/08/24 Unknown History oral suspension (Milk of Magnesia) rosuvastatin 20 mg tablet 20 mg PO DAILY 08/15/23 03/08/24 03/07/24 17:00 History sodium phosphates 19 gram-7 118 ml OK DAILY PRN Constipation 08/15/23 03/08/24 Unknown History gram/118 mL enema (Fleet Enema) diltiazem HCl 180 mg 180 mg PO DAILY #30 caps 08/16/23 03/08/24 03/08/24 Rx capsule,extended release 24 hr (Cardizem CD) chlorhexidine gluconate 4 % See Rx Instructions .Route .COMPLEX 01/15/24 03/08/24 03/04/24 History topical liquid (Hibiclens) cholecalciferol (vitamin D3) 1,250 1 mcg PO Q7D 01/15/24 03/08/24 03/06/24 History mcg (50,000 unit) capsule diclofenac sodium 1 % topical gel See Rx Instructions .Route .COMPLEX 01/15/24 03/08/24 Unknown History insulin lispro 100 unit/mL See Rx Instructions .Route .COMPLEX 01/15/24 03/08/24 03/08/24 11:30 History subcutaneous pen (Humalog KwikPen (U-100) Insulin) mupirocin 2 % topical ointment 1 applic topical Q6D 01/15/24 03/08/24 03/04/24 History nystatin 100,000 unit/gram topical 1 applic topical BID PRN SKIN 01/15/24 03/08/24 Unknown History powder REDNESS furosemide 20 mg tablet (Lasix) 40 mg (2 x 20 mg) PO QAM 30 days 01/21/24 03/08/24 03/08/24 Rx #60 tabs albuterol sulfate 2.5 mg/3 mL 2.5 mg inhalation TID PRN copd 02/11/24 03/08/24 03/08/24 History (0.083 %) solution for nebulization alprazolam 0.25 mg tablet 0.25 mg PO Q12H PRN Anxiety 02/11/24 03/08/24 03/08/24 14:13 History ferrous sulfate 325 mg (65 mg 325 mg PO BIDWM #60 tabs 02/13/24 03/08/24 03/08/24 12:00 Rx iron) tablet pantoprazole 40 mg tablet,delayed 40 mg PO BIDWM #60 tabs 02/13/24 03/08/24 03/08/24 12:00 Rx release sucralfate 1 gram tablet 1 g PO AC&BEDTIME #120 tabs 02/13/24 03/08/24 03/08/24 11:00 Rx cyanocobalamin (vitamin B-12) 100 mcg IM DAILY 03/08/24 03/08/24 03/06/24 History 1,000 mcg/mL injection kit insulin glargine 100 unit/mL 50 unit SUBCUT BID 03/08/24 03/08/24 03/08/24 History subcutaneous solution potassium chloride 20 mEq 20 meq PO DAILY 03/08/24 03/08/24 03/08/24 History tablet,extended release(part/cryst) (Klor-Con M) zinc oxide 10 % topical cream 1 applic topical DAILY 03/08/24 03/08/24 03/08/24 History Allergies Allergy/AdvReac Type Severity Reaction Status Date / Time morphine Allergy ALGY-Rash Verified 02/27/24 01:53 quinine Allergy ALGY-Rash Verified 02/27/24 01:53 Sulfa (Sulfonamide Allergy ALGY-Rash Verified 02/27/24 01:53 Antibiotics) Penicillins AdvReac ALGY-Rash Verified 02/27/24 01:53 PFSH Acute PFSH: Medical History Hypoxia Pneumonia Heart failure with preserved left ventricular function History of echocardiogram 08/2023 technically difficult study due to poor ultrasonic windows, grossly normal LV systolic function, grade 1 diastolic dysfunction, mild MR, mild TR, left atrial dilitation Osteoporosis DEXA 09/2023 Right femoral neck T score -4.2 and Z score -0.3; L spine T score 0.2, Z score 0.9, fracture risk 10 yr probability 45%, hip fracture 22.9% ESBL 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 difficile colitis Gastroesophageal reflux disease Hyperlipidemia On apixaban therapy History of ESBL E. coli infection History of MRSA infection History of small bowel obstruction Medically managed to date Diabetes mellitus Coronary artery disease HTN (hypertension), malignant COPD (chronic obstructive pulmonary disease) Morbid obesity Surgical History History of colonoscopy (~2013) History of bladder suspension procedure History of orthopedic surgery Wrist and left leg History of cholecystectomy History of tubal ligation History of appendectomy Family History Other CAD (coronary artery disease) Cancer Social History Smoking and tobacco/nicotine status: former use of tobacco/nicotine Quit status (tobacco/nicotine): has quit using Alcohol intake: never Substance/Drug Use: never Caregiver/support person: Yes (Son ) Housing: Skilled Nursing Vitals/I&O/Wt Last Vital Signs Temp 97.8 F 04/04/24 02:23 Pulse 85 04/04/24 02:30 Resp 16 04/04/24 02:30 BP 114/56 04/04/24 02:30 Pulse Ox 96 04/04/24 02:30 O2 Del Method Room Air 04/04/24 02:30 O2 Flow Rate 6 04/04/24 00:08 FiO2 40 04/04/24 00:40 04/03/24 04/03/24 04/04/24 14:59 22:59 06:59 Intake Total 0 / 0 Balance 0 / 0 Weight last 48 hrs Weight 127.006 kg Physical Exam Narrative: Accompanied by her son Const: GENERAL APPEARANCE: cooperative NUTRITIONAL APPEARANCE: obese morbidly obese ORIENTATION/CONSCIOUSNESS: Yes awake OTHER: Sluggish responses, movements. Appears to have mild confusion. Trouble with recall. Does not remember ever having a colonoscopy. HENMT: COMMON NORMALS: oropharynx normal Neck/C-Spine: COMMON NORMALS: no JVD Resp: AUSCULTATION: diminished lung sounds OTHER: Difficult exam. Cardio: COMMON NORMALS: no JVD, regular rhythm, S1 normal heart sound present, S2 normal heart sound present and No murmurs present (Cardio) RHYTHM: regular rhythm HEART SOUNDS: S1 normal heart sound present and S2 normal heart sound present GI: COMMON NORMALS: Normal to inspection, nondistended, normoactive bowel sounds present, Soft to palpation and non-tender PALPATION: Yes Soft to palpation Extremity: COMMON NORMALS: no joint enlargement and no pedal edema Neuro: COMMON NORMALS: moves all extremities SENSORIUM/ORIENTATION: Yes alert Skin: COMMON NORMALS: no rashes or lesions noted GENERAL SKIN EXAM: no rashes or lesions noted Urinary Catheter Management: Curry: Cath Placed During This Visit: yes Urinary Catheter Date of Insertion: 04/04/24 Urinary Catheter Time of Insertion: 02:42 Data 04/04/24 00:20 04/04/24 00:20 A&P Assessment and plan (1) Acute on chronic hypoxic respiratory failure: Acute hypoxic and hypercapnic respiratory failure noted in ER with acute encephalopathy, sluggish to respond, slowed movements. With hypercapnia on ABG, cardiomegaly on chest imaging, elevated NT proBNP. Reviewed vitals, CBC, INR, ABG, CMP, chest x-ray, CT chest, abdomen pelvis, ED provider note, discussed with ED provider. Appears. On chronic respiratory failure secondary to CHF exacerbation, with underlying COPD, possible obesity hypoventilation syndrome, additionally with likely contribution of acute on chronic anemia, hemoglobin is at 6. Undergoing RBC transfusion. Continue IV Lasix treatment, 40 mg every 12 hours, monitor for risk of electrolyte abnormality, follow-up potassium, museum requested as well, hypovolemia, hypotension, kidney injury with IV diuretics. Monitor intake and output. (2) CHF exacerbation: Moderate to severe CHF exacerbation with acute on chronic hypoxic and hypercapnic respiratory failure. Type unknown but suspect acute diastolic congestive heart failure exacerbation, although he is having cardiomegaly on chest x-ray. NT proBNP higher than usual at 2508, prior 866 back in February 2024. Diuresis as above. Monitor electrolytes, intake and output, renal function. Unfortunately not likely to be able to obtain usable echocardiogram images, prior echo chest in August with poor windows largely uninformative with regards to ejection fraction. Is noted to have grade 1 diastolic dysfunction. Mild MVR, left atrial dilation, mild tricuspid regurg. (3) Acute on chronic anemia: Acute on chronic anemia, hemoglobin 6. Reviewed prior hemoglobin, was 8 on 03/29. Prior to that fluctuating between 7 and 8. 6.3 back in February. Previously on Eliquis for A-fib, currently no onger on any anticoagulation. No grossly melanotic or bloody stool. Anemia is normocytic. CT abdomen pelvis was obtained in ER without retroperitoneal or other obvious bleed. On review of prior Hemoccult, Hemoccult was positive back in August 2023. Suspect may be slow GI bleed. Will obtain hemolysis study, obtain LDH, haptoglobin, reticulocyte, peripheral smear. Repeat Hemoccult. PPI IV twice daily. Hold off any NSAIDs, do not continue diclofenac. Hold duloxetine. Once encephalopathy and CHF improved consider additional endoscopic evaluation due to recurrent anemia. Does appears to have had a visit scheduled for colonoscopy, and previously EGD and colonoscopy noted in 2012, but I am unable to access these records. She does not remember ever having a colonoscopy but also with acute encephalopathy. Her son is not sure. (4) Acute encephalopathy: Per history obtained from her son has been confused all day. Acute metabolic encephalopathy, likely combination with acute hypoxic and hypercapnic respiratory failure, but also requested UA and it is returning suggestive of urinary tract infection with more than 100 WBC. Treat UTI. Treat CHF exacerbation. Transiently on BiPAP in ER with hypercapnia. Avoid hyperoxia, target O2 saturation 88-92%. Reorient. Incidentally noted abnormal liver CT with appearance of possible cirrhosis. Does not drink alcohol, may suspect CLANCY and cardiac related. Check ammonia. Will need follow-up with regards to possible fibrosis at risk of progression to cirrhosis. Hold Xanax, hydrocodone, or any other medications that may be contributing. (5) UTI (urinary tract infection): UA requested, Suggestive of UTI on review. On review of past cultures history of ESBL organism infection. Will start on meropenem. Monitor for risk of seizure. Follow-up urine culture. (6) Abnormal liver CT: Incidentally noted abnormal liver CT with appearance of possible cirrhosis. Does not drink alcohol, may suspect CLANCY and cardiac related. Check ammonia. Will need follow-up with regards to possible fibrosis at risk of progression to cirrhosis. Follow-up with PCP regarding weight loss options. (7) Candidal intertrigo: Nystatin cream. Plan COPD, at baseline on 3 L nasal cannula oxygen Chronic CHF, type unknown, poor ultrasonic windows on echocardiogram. With exacerbation as above. History of atrial fibrillation, not on anticoagulation. Recurrent anemia needs additional workup. History of anemia, Unclear etiology GERD, PPI Former smoker, History of TIA, CAD, DM 2, Continue insulin Lantus, with acute encephalopathy with anticipated may have reduced oral intake, will decrease dose of Lantus for now. POC glucose checks. Sliding scale. Consistent carb diet. HTN, Blood pressure soft currently, hold off antihypertensives, reassess blood pressures. HLD, Continue statin RLS, Continue ropinirole C. difficile colitis, Currently no diarrhea Morbid obesity: Follow-up with PCP regarding weight loss options. Attestations Medical Necessity Statement*: Admission of over 2 midnights anticipated for assessment and management of acute hypoxic and hypercapnic respiratory failure, CHF exacerbation, acute on chronic anemia, acute encephalopathy, UTI in a lady with multiple additional comorbidities of above. Diagnoses Acute on chronic hypoxic respiratory failure J96.21 CHF exacerbation I50.9 Acute on chronic anemia D64.9 Acute encephalopathy G93.40 UTI (urinary tract infection) N39.[address] R93.2 Candidal intertrigo B37.2
[2024-04-04 03:12] LABS: Bilirubin Urine Negative (Negative); Blood Urine 1+ (Negative); Glucose Urine UA Negative (Normal); Ketones Urine Negative (Negative); Leukocyte Esterase Urine 3+ (Negative); Nitrate Urine Negative (Negative); Protein Urine 1+ (Negative); Urine Appearance Turbid (CLEAR); Urine Color Yellow (Yellow); Urobilinogen Urine 0.2 mg/dL (Negative)
[2024-04-04 03:15] LABS: Add Urine Microscopic? YES; Bacteria Urine 4+ /hpf; Hyaline Casts Urine 18.18 /lpf; RBC Urine 0-2 /hpf (0-2); Squamous Epithelial Cell Urine 0-5 /hpf (0-5); WBC Urine >100 /hpf (0-5)
[2024-04-04 03:27] LABS: Add Urine Culture? Yes; UA Slide Review UA Slide Review Perf
[2024-04-04 03:31] LABS: Ammonia 10 umol/L (11-51)
[2024-04-04 04:00] LABS: Hematocrit 22.1 % (36-47); Retic Production Index 0.11; Reticulocyte % 0.2 % (0.5-2.0)
[2024-04-04 04:08] LABS: LAB Peripheral Smear Sent for Review
[2024-04-04 04:19] LABS: Lactate Dehydrogenase 270 U/L (135-214)
[2024-04-04] MEDS: meropenem 500 mg SDV IVP ×3 (04:55→20:39)
[2024-04-04 06:27] LABS: Glucose Point of Care 204 mg/dL (70-110)
[2024-04-04 06:51] LABS: Ferritin 159 ng/mL (15-150); Iron 24 ug/dL (37-145); Percent Saturation 7.7 % (20-50); Total Iron Binding Capacity 310 mcg/dl; Unsaturated Iron Binding 286 ug/dL (112-347)
[2024-04-04] MEDS: FUROsemide 10 mg/mL SDV 4mL 40 MG IVP (06:55)
[2024-04-04] MEDS: linezolid premix 600 MG/300 ML PREMIX 300 MG IV ×2 (06:56→17:45)
--- NOTE | 2024-04-04 07:40 | PC.PHAR ---
mic is faxing over med list for the patient, called at 7:40
--- NOTE | 2024-04-04 10:10 | PC.CHAP ---
Pastoral Care Encounter/Spiritual Assessment Type of Contact [] Declined contract graphic designer visit [] Patient/Family/Request visit [] Outpatient visit [] Follow-up visit [] Physician referral [] Code/Alert [x] Routine visit [] Staff referral [] Actively dying [x] Patient sleeping [] Family support [] [] Out of room [] Palliative care [] [] Receiving care in room [] Pre-surgical visit [] Trauma [] Long length of stay [] ICU visit [] Other: Relational/Emotional Strength [] Patient feels connected with others/family/visitors/staff [] Distress [] Loneliness/isolation [] Abandonment Spirituality of Patient [] Person of Chiqui [] Attends Latter Day of their [place]iqui [] Believes in Prayer [] Reads Bible or Methodist materials [] There are Spiritual issues to be addressed Deck Mechanic Interventions [] Prayer [] Active listening [] Non-anxious presence [] Spiritual/emotional support [] Crisis/trauma care [] Spiritual counseling [] Bereavement support [] Provided bereavement packet [] Provided Bible/devotional materials [] Provided toy/stuffed animal, coloring book to patient or family member [] Provided Communion [] Anointing/[place] [] Salvation [] Completed spiritual assessment [] Other: Impact on Illness or Injury [] Angry [] Fearful [] Anxious [] Often cries [] Exhaustion [] Unable to work [] Unable to attend zoroastrianism [] Unable to walk/stand [] Unable to read [] Unable to drive [] Unable to eat/drink [] Unable to sleep [] Unable to be with family [] Patient intubated [] Other: Summary Time spent with patient
[2024-04-04] MEDS: pantoprazole DR 40 mg Tablet PO ×2 (10:17→17:45)
[2024-04-04] MEDS: ropinirole 1 mg Tablet PO (10:17)
[2024-04-04] MEDS: insulin lispro 100 unit/1 mL SUBCUT ×3 (10:17→20:52)
[2024-04-04] MEDS: insulin glargine 100 units/1 mL 20 UNIT SUBCUT ×2 (10:17→20:52)
[2024-04-04] MEDS: fluconazole premix 400 MG/200 ML PIGGYBACK 100 MG IV (10:18)
--- NOTE | 2024-04-04 10:29 | P.PN_ITS ---
Subjective 2 Subjective: Patient admitted this morning by inspector shells. Refer to H&P for details. This morning, she remains lethargic but arouses some to name. Discussed plan of care. Patient is in agreement. Medications: Reviewed: Yes Vitals/I&O/Wt Last Vital Signs Temp 98.1 F 04/04/24 08:00 Pulse 83 04/04/24 08:31 Resp 18 04/04/24 08:31 BP 101/67 04/04/24 08:00 Pulse Ox 98 04/04/24 08:31 O2 Del Method Nasal Cannula 04/04/24 08:31 O2 Flow Rate 4 04/04/24 08:31 FiO2 40 04/04/24 00:40 04/03/24 04/04/24 04/04/24 22:59 06:59 14:59 Intake Total 250 / 250 300 / 300 Balance 250 / 250 300 / 300 Weight last 48 hrs Weight 113.908 kg Weight 127.006 kg Physical Exam 2 Narrative: General: Patient is lethargic. Head: Normocephalic. Atraumatic. EOM intact. Neck: No JVD. Cardiovascular: RRR. No gallops. No murmurs. Lungs: Breath sounds diminished bilateral bases, no use of accessory muscles, no crackles or wheezes. Skin: No jaundice. No rashes. Abdomen: Normal bowel sounds, abdomen soft and nontender. Extremities: No cyanosis or clubbing. Musculoskeletal: No swollen or erythematous joints. Neurological: Moves all 4 extremities. No myoclonus. Urinary Catheter Management: Curry: Cath Placed During This Visit: yes Reason for Continuing Indwelling Catheter: Acute Urinary Retention or Obstruction Urinary Catheter Date of Insertion: 04/04/24 Urinary Catheter Time of Insertion: 02:42 Data 04/04/24 00:20 04/04/24 00:20 A&P Assessment and plan (1) Acute on chronic hypoxic respiratory failure: Respiratory failure is multifactorial with acute on chronic hypoxia, chronic hypercapnia Continue supplemental oxygen support, wean as tolerated Continue diuresis with IV Lasix (2) CHF exacerbation: Acute on chronic congestive heart failure Known diastolic type, unknown ejection fraction Obtain limited echo to see if we can get better windows than prior echo in system which did not Continue diuresis Strict I's and O's Daily weights (3) Acute on chronic anemia: Acute on chronic anemia Continue PPI Avoid NSAIDs She may benefit from an endoscopy pending clinical course Trend hemoglobin Transfuse as needed (4) Acute encephalopathy: Mentations not at baseline Her pCO2 is compensated Continue respiratory support Treat underlying infection Optimize electrolytes Supportive care (5) UTI (urinary tract infection): Acute complicated urinary tract infection Follow culture Continue Merrem (6) Abnormal liver CT: Suspected CLANCY cirrhosis (7) Candidal intertrigo: Continue nystatin Continue fluconazole Aggressive wound care Plan COPD with chronic hypoxic respiratory failure: Breathing treatments History of atrial fibrillation, not on anticoagulation. Recurrent anemia needs additional workup. GERD, PPI Former smoker, History of TIA CAD Type 2 diabetes mellitus: Continue Lantus at current rate, adjust as needed. Sliding-scale correction Hypertension: Hold antihypertensives due to soft blood pressure reinitiate as blood pressure improves Hyperlipidemia: Continue statin Restless leg syndrome: Continue Requip Morbid obesity: Patient would benefit from weight loss Attestations 2 Medical Necessity Statement*: Patient admitted this morning, refer to H&P. She remains encephalopathic this morning requiring ongoing hospitalization for diuresis, IV antibiotics, and supportive care. Coding Level of Care Code Acute Code for Chg Fwd Diagnoses Acute on chronic hypoxic respiratory failure J96.21 CHF exacerbation I50.9 Acute on chronic anemia D64.9 Acute encephalopathy G93.40 UTI (urinary tract infection) N39.[address] R93.2 Candidal intertrigo B37.2
--- NOTE | 2024-04-04 10:36 | USCV_ITS ---
SparksPurvi Age: 78 Gender: F : 1945 Exam Date: 04/04/2024 11:02 Ordering Phys: Gato Nguyen MD Technologist: CT Exam Location: [facility] – [place] Indication: ef BP: 101 / 67 HR: Rhythm: Sinus Technical Quality: Adequate MEASUREMENTS (Male / Female) Normal Values 2D ECHO LVOT Diameter 2.1 cm LV Ejection Fraction MOD 4C 61.0 % LV Ejection Fraction MOD 2C 54.4 % LV Ejection Fraction 2C AL 55.4 % LA Diameter 5.2 cm RA Systolic Volume 4C AL 53.8 ml RA Systolic Volume 4C MOD 51.1 ml LA Sys Volume AL 62.7 cm cubed LA Sys Volume Index AL 26.7 cm cubed/m squared Aorta at Sinotubular Diameter 2.3 cm FINDINGS Left Ventricle Right Ventricle Right Atrium Left Atrium Mitral Valve Aortic Valve Tricuspid Valve Pulmonic Valve Pericardium Aorta IVC CONCLUSIONS Limited echocardiogram performed to assess LV systolic function LV systolic function is normal with EF of 55-60%. No regional wall motion abnormalities seen Lópze Romero MD (Electronically Signed) Final Date: 04 April 2024 12:13 S
--- NOTE | 2024-04-04 11:42 | PC.NURSE ---
Alert and oriented to self only. Attempted to complete admission assessment to best of ability. Tried to call senior living x1 to complete admission questions; however, there was no answer.
[2024-04-04 12:31] LABS: Hematocrit 28.4 % (36-47)
--- NOTE | 2024-04-04 12:57 | PC.SOCIAL ---
IMM Updated Updated pt on IMM. No questions voiced. Provided pt a copy. Initialed, dated, & timed a copy & placed in chart.
[2024-04-04 17:08] LABS: Glucose Point of Care 104 mg/dL (70-110)
[2024-04-04 20:50] LABS: Glucose Point of Care 141 mg/dL (70-110)
[2024-04-05] VITALS (8 sets, daily range): BP systolic 91–141; BP diastolic 53–75; PULSE 80–86; RESP 8–22; TEMP 36.7–37; O2SAT 93–99
[2024-04-05] MEDS: meropenem 500 mg SDV IVP (03:20)
[2024-04-05 05:17] LABS: Basophils # 0.2 10^3/uL (0.0-0.1); Basophils % 1.6 %; Eosinophils # 0.5 10^3/uL (0.0-0.8); Hematocrit 29.4 % (36-47); Lymphocytes # 2.7 10^3/uL (0.8-4.8); Mean Corpuscular HGB Conc 29.3 g/dL (30-55); Mean Corpuscular Hemoglobin 26.7 pg (27-33); Mean Corpuscular Volume 91.3 fl (85-98); Mean Platelet Volume 10.7 fL (7.4-10.4); Monocytes # 1.2 10^3/uL (0.2-0.9); Monocytes % 10.1 %; Neutrophils % 52.7 %; Nucleated Red Blood Cells # 0.5 /100WBC; Nucleated Red Blood Cells % 3.7 %; Platelet Count 238 10^3/cmm (157-399); Red Blood Count 3.22 10^6/uL (3.85-5.65); Red Cell Distribution Width 17.3 % (12.1-15.1); White Blood Count 12.16 10^3/uL (3.29-11.43)
[2024-04-05 05:36] LABS: Alanine Aminotransferase 9 U/L (0-33); Albumin Level 2.8 g/dL (3.5-5.2); Alkaline Phosphatase 87 U/L (35-105); Anion Gap 6.4 (5-19); Aspartate Amino Transferase 12 U/L (0-32); Blood Urea Nitrogen 9 mg/dL (8-23); Chloride 90 mmol/L (98-107); Creatinine Clr Calc Pharmacy 69.1732; Globulin 2.6 g/dL (1.3-4.6); Glucose 109 mg/dL (65-115); Magnesium 1.7 mg/dL (1.7-2.3); Osmolality Calculated 277 mOsm/kg (285-295); Potassium 3.4 mmol/L (3.5-5.1); Slide Review Slide Review Perform; Sodium 134 mmol/L (136-145); Total Bilirubin 0.5 mg/dL (0.15-1.2); Total Protein 5.4 g/dL (6.6-8.7)
[2024-04-05 05:38] LABS: Carbon Dioxide 41 mmol/L (22-29)
[2024-04-05] MEDS: linezolid premix 600 MG/300 ML PREMIX 300 MG IV (05:49)
[2024-04-05] MEDS: fluconazole premix 400 MG/200 ML PIGGYBACK 100 MG IV (06:32)
[2024-04-05 06:39] LABS: Glucose Point of Care 171 mg/dL (70-110)
[2024-04-05] MEDS: ropinirole 1 mg Tablet PO (09:56)
[2024-04-05] MEDS: pantoprazole DR 40 mg Tablet PO (09:56)
[2024-04-05] MEDS: insulin lispro 100 unit/1 mL SUBCUT (09:56)
[2024-04-05] MEDS: insulin glargine 100 units/1 mL 20 UNIT SUBCUT (09:56)
[2024-04-05] MEDS: potassium chloride ER 20 mEq Tablet 40 MEQ PO (09:58)
--- NOTE | 2024-04-05 10:09 | PM.DCS ---
Discharge Providers Date of Admission: 04/04/24 03:01 Date of Discharge: April 05, 2024 Attending Provider at Admission: Morris Bolivar Attending Provider at Discharge: Gato Nguyen MD Primary Care Provider: Elaine Topete Diagnoses at Discharge Discharge Diagnosis (1) Acute on chronic hypoxic respiratory failure: Status: Acute (2) CHF exacerbation: Status: Acute (3) Acute on chronic anemia: Status: Acute (4) Acute encephalopathy: Status: Acute (5) UTI (urinary tract infection): Status: Resolved (6) Abnormal liver CT: Status: Acute (7) Candidal intertrigo: Status: Acute Reason for Visit Reason for Visit: abnormal labs Hospital Course Hospital Course Purvi Sparks is an 79-year-old female with a past medical history significant for multiple comorbidities who presented from nursing facility with anemia, found to have acute on chronic anemia, acute on chronic hypoxic respiratory failure secondary to anemia/CHF exacerbation, acute on chronic heart failure with preserved ejection fraction exacerbation, acute metabolic encephalopathy, and acute complicated urinary tract infection. She underwent transfusion of packed red blood cells with hemoglobin returning to baseline. She underwent IV diuresis for congestive heart failure exacerbation with oxygen requirements returning to her regular baseline. Limited echo revealed preserved ejection fraction consistent with acute diastolic heart failure exacerbation with preserved ejection fraction. Her acute metabolic encephalopathy resolved with the mentation returning to baseline. Her acute complicated urinary tract infection was treated with IV antibiotics and rotated to oral Levaquin based upon prior cultures at discharge. She was found to have significant candidiasis of skin treated with continuation of nystatin as well as initiation of fluconazole. She was also found to have suspected superimposed cellulitis of bilateral flanks and buttocks treated with linezolid. She was rotated to oral linezolid for an additional week at discharge. Her symptomatology resolved. Patient recovered quicker than expected. Patient requesting to be discharged back to long term by day of discharge. She was therefore rotated to oral equivalents of above as noted on discharge medication reconciliation. Patient discharged back to nursing facility in stable condition. She is to follow-up with provider at facility within 1 week. Physical Exam Narrative: General: Patient is awake. Alert. Conversational. Head: Normocephalic. Atraumatic. EOM intact. Neck: No JVD. Cardiovascular: RRR. No gallops. No murmurs. Lungs: Adequate air movement, no use of accessory muscles, no crackles or wheezes. Skin: No jaundice. Candidiasis in multiple areas. Abdomen: Normal bowel sounds, abdomen soft and nontender. Extremities: No cyanosis or clubbing. Musculoskeletal: No swollen or erythematous joints. Neurological: Moves all 4 extremities. No myoclonus. Urinary Catheter Management: Curry: Cath Placed During This Visit: yes Reason for Continuing Indwelling Catheter: Acute Urinary Retention or Obstruction Urinary Catheter Date of Insertion: 04/04/24 Urinary Catheter Time of Insertion: 02:42 Discharge Data Studies Completed and Pending Completed Studies During Hospitalization Category [place] [id number] Stat Cat Scan 04/04/24 01:28 Completed XR chest 1V portable [id number] Stat Exams 04/04/24 00:16 Completed CV. echo limited [id number] Routine Ultrasound 04/04/24 10:36 Completed Pending at discharge Category Date Time Status Complete Blood Count w/Auto AM LABS Lab 04/06/24 04:00 Ordered Complete Blood Count w/Auto AM LABS Lab 04/07/24 04:00 Ordered Comprehensive Metabolic Panel AM LABS Lab 04/06/24 04:00 Ordered Comprehensive Metabolic Panel AM LABS Lab 04/07/24 04:00 Ordered Urine Culture Stat Lab 04/04/24 03:00 Results Radiology Impressions Chest X-Ray 04/04/24 00:16 IMPRESSION: 1. Probable fqky-[id number]-right pleural effusions. 2. Bibasilar hazy airspace opacities. This may represent atelectasis, effusion, and/or infiltrate. Chest/Abdomen/Pelvis CT 04/04/24 01:28 IMPRESSION: Moderate-sized right and small left pleural effusions. IMPRESSION: 1. Questionable cirrhotic appearance of the liver. 2. No distinct acute pathologic findings. Laboratory Results WBC 12.16 10^3/uL (3.29-11.43) H 04/05/24 05:05 RBC 3.22 10^6/uL (3.85-5.65) L 04/05/24 05:05 Hgb 8.60 g/dL (11.27-16.99) L 04/05/24 05:05 Hct 29.4 % (36-47) L 04/05/24 05:05 MCV 91.3 fl (85-98) 04/05/24 05:05 MCH 26.7 pg (27-33) L 04/05/24 05:05 MCHC 29.3 g/dL (30-55) L D 04/05/24 05:05 RDW 17.3 % (12.1-15.1) H 04/05/24 05:05 Plt Count 238 10^3/cmm (157-399) 04/05/24 05:05 MPV 10.7 fL (7.4-10.4) H 04/05/24 05:05 Neut % (Auto) 52.7 % 04/05/24 05:05 Lymph % (Auto) 22.0 % 04/05/24 05:05 [place] % (Auto) 10.1 % 04/05/24 05:05 Eos % (Auto) 4.0 % 04/05/24 05:05 Baso % (Auto) 1.6 % 04/05/24 05:05 Reticulocyte % (Auto) 0.2 % (0.5-2.0) L 04/04/24 00:20 Neut # (Auto) 6.40 10^3/uL (1.8-7.7) 04/05/24 05:05 Lymph # (Auto) 2.7 10^3/uL (0.8-4.8) 04/05/24 05:05 [place] # (Auto) 1.2 10^3/uL (0.2-0.9) H 04/05/24 05:05 Eos # (Auto) 0.5 10^3/uL (0.0-0.8) 04/05/24 05:05 Baso # (Auto) 0.2 10^3/uL (0.0-0.1) H 04/05/24 05:05 Nucleated RBC % (auto) 3.7 % 04/05/24 05:05 Total Counted 100 (0-100) 04/04/24 00:20 Atypical Lymphs % Not Reportable 04/04/24 00:20 Absolute Neutrophils 6.6 10^3/cmm (1.4-6.5) H 04/04/24 00:20 Segmented Neutrophils 59 % 04/04/24 00:20 Band Neutrophils 3.0 % 04/04/24 00:20 Lymphocytes (Manual) 25 % 04/04/24 00:20 Monocytes (Manual) 4.0 % 04/04/24 00:20 Absolute Monocytes 0.4 10^3/cmm (0.1-0.6) 04/04/24 00:20 Eosinophils (Manual) 5 % 04/04/24 00:20 Absolute Eosinophils 0.5 10^3/cmm (0.0-0.7) 04/04/24 00:20 Basophils (Manual) 0.0 % 04/04/24 00:20 Absolute Basophils 0.0 10^3/cmm (0.0-0.2) 04/04/24 00:20 Myelocytes 2.0 % 04/04/24 00:20 Promyelocytes 2.0 % 04/04/24 00:20 Nucleated RBCs # 0.5 /100WBC 04/05/24 05:05 Platelet Estimate Normal (Normal) 04/04/24 00:20 Peripher Smr Path Cons Sent for review 04/04/24 00:20 Retic Production Index 0.11 04/04/24 00:20 Haptoglobin 158.0 mg/L (30-200) 04/04/24 00:20 PT 15.20 SECONDS (12.1-14.9) H 04/04/24 00:20 INR 1.16 (0.8-1.2) 04/04/24 00:20 APTT 34.4 SECONDS (23.9-36.7) 04/04/24 00:20 Specimen Type Arterial 04/04/24 00:21 Sample Site Brachial, right 04/04/24 00:21 ABG pH 7.40 (7.35-7.45) 04/04/24 00:21 ABG pCO2 66.7 mmHg (35-45) H* 04/04/24 00:21 ABG pO2 77.5 mmHg (80.0-100.0) L 04/04/24 00:21 ABG HCO3 41.3 mmol/L (22-26) H 04/04/24 00:21 ABG O2 Saturation 95.8 04/04/24 00:21 ABG Base Excess 15.1 mmol/L (-2.0-2.0) H 04/04/24 00:21 Monico Test N/a 04/04/24 00:21 A-a O2 Gradient 0.0 mmHg (5-10) L 04/04/24 00:21 Hematocrit 18.3 % (37-47) L 04/04/24 00:21 Hgb O2 Saturation 92.3 % (95-100) L 04/04/24 00:21 Carboxyhemoglobin 2.2 %THgb (0.4-20.1) 04/04/24 00:21 Methemoglobin 1.5 % (0.4-1.5) 04/04/24 00:21 Total Hemoglobin 6.0 g/dL (12-16) L 04/04/24 00:21 Sodium 138.0 mmol/L (131-143) 04/04/24 00:21 Potassium 4.0 mmol/L (3.5-5.0) 04/04/24 00:21 Glucose 123.0 mg/dL (70-115) H 04/04/24 00:21 Ionized Calcium 1.2 mmol/L (1.1-1.4) 04/04/24 00:21 O2 Delivery Device Nc 04/04/24 00:21 O2 Liters/Min 6.0 % 04/04/24 00:21 Honey Processor ID [email or web address] 04/04/24 00:21 Sodium 134 mmol/L (136-145) L 04/05/24 05:05 Potassium 3.4 mmol/L (3.5-5.1) L 04/05/24 05:05 Chloride 90 mmol/L (98-107) L 04/05/24 05:05 Carbon Dioxide 41 mmol/L (22-29) H 04/05/24 05:05 Anion Gap 6.4 (5-19) 04/05/24 05:05 BUN 9 mg/dL (8-23) 04/05/24 05:05 Creatinine 0.8 mg/dL (0.5-0.9) 04/05/24 05:05 GFR Calculation Not Reportable 04/05/24 05:05 Glucose 109 mg/dL (65-115) 04/05/24 05:05 POC Glucose 171 mg/dL (70-110) H 04/05/24 06:35 Calculated Osmolality 277 mOsm/kg (285-295) L 04/05/24 05:05 Lactic Acid 1.4 mmol/L (0.5-2.2) 04/04/24 00:20 Calcium 8.0 mg/dL (8.5-10.5) L 04/05/24 05:05 Magnesium 1.7 mg/dL (1.7-2.3) 04/05/24 05:05 Iron 24 ug/dL (37-145) L 04/04/24 00:20 TIBC 310 mcg/dl 04/04/24 00:20 % Saturation 7.7 % (20-50) L 04/04/24 00:20 Unsat Iron Binding 286 ug/dL (112-347) 04/04/24 00:20 Ferritin 159 ng/mL (15-150) H 04/04/24 00:20 Total Bilirubin 0.5 mg/dL (0.15-1.2) 04/05/24 05:05 AST 12 U/L (0-32) 04/05/24 05:05 ALT 9 U/L (0-33) 04/05/24 05:05 Alkaline Phosphatase 87 U/L (35-105) 04/05/24 05:05 Ammonia 10 umol/L (11-51) L 04/04/24 03:05 Lactate Dehydrogenase 270 U/L (135-214) H 04/04/24 00:20 NT-Pro-B Natriuret Pep 2508 pg/mL (0-450) H 04/04/24 00:20 Total Protein 5.4 g/dL (6.6-8.7) L 04/05/24 05:05 Albumin 2.8 g/dL (3.5-5.2) L 04/05/24 05:05 Globulin 2.6 g/dL (1.3-4.6) 04/05/24 05:05 Urine Color Yellow (Yellow) 04/04/24 03:00 Urine Appearance Turbid (CLEAR) A 04/04/24 03:00 Urine pH 7.0 (5-7) 04/04/24 03:00 Ur Specific [place] 1.010 (1.005-1.030) 04/04/24 03:00 Urine Protein 1+ (Negative) A 04/04/24 03:00 Urine Glucose (UA) Negative (Normal) 04/04/24 03:00 Urine Ketones Negative (Negative) 04/04/24 03:00 Urine Blood 1+ (Negative) A 04/04/24 03:00 Urine Nitrate Negative (Negative) 04/04/24 03:00 Urine Bilirubin Negative (Negative) 04/04/24 03:00 Urine Urobilinogen 0.2 mg/dL (Negative) 04/04/24 03:00 Ur Leukocyte Esterase 3+ (Negative) A 04/04/24 03:00 Urine RBC 0-2 /hpf (0-2) 04/04/24 03:00 Urine WBC >100 /hpf (0-5) H 04/04/24 03:00 Ur Squamous Epith Cells 0-5 /hpf (0-5) 04/04/24 03:00 Amorphous Sediment Not Reportable 04/04/24 03:00 Urine Bacteria 4+ /hpf (NONE) H 04/04/24 03:00 Hyaline Casts 18.18 /lpf 04/04/24 03:00 Blood Type O Positive 04/04/24 00:20 Rho(D) Type Rh positive 04/04/24 00:20 Antibody Screen Negative 04/04/24 00:20 Crossmatch See Detail 04/04/24 00:20 Vitals Last Vital Signs Temp 98.2 F 04/05/24 04:00 Pulse 86 04/05/24 09:02 Resp 22 H 04/05/24 09:02 BP 141/75 04/05/24 04:00 Pulse Ox 93 04/05/24 09:02 O2 Del Method Nasal Cannula 04/05/24 09:02 O2 Flow Rate 4 04/05/24 09:02 FiO2 40 04/05/24 03:59 Discharge Plan Discharge Patient Disposition: Home Condition: Stable Prescriptions: New levofloxacin 500 mg tablet 500 mg PO DAILY 5 Days Qty: 10 0RF fluconazole 200 mg tablet 200 mg PO DAILY 10 Days Qty: 10 0RF linezolid 600 mg tablet 600 mg PO BID 7 Days Qty: 14 0RF Continued ropinirole 1 mg Tablet 1 mg PO DAILY docusate sodium [Stool Softener] 100 mg Tablet 100 mg PO BID ondansetron HCl 4 mg Tablet 4 mg PO Q6H PRN (Reason: Nausea) magnesium oxide 400 mg (241.3 mg magnesium) Tablet 400 mg PO BID Qty: 6 0RF Trelegy Ellipta 100-62.5-25 mcg blister with device 1 inh inhalation DAILY Qty: 60 0RF albuterol sulfate 90 mcg/actuation HFA aerosol inhaler 1 inh inhalation Q6H PRN (Reason: shortness of breath or wheezing) Qty: 8.5 0RF acetaminophen 325 mg Tablet 650 mg PO Q4H PRN (Reason: Pain OR FEVER) hydrocodone-acetaminophen 5-325 mg tablet 1 tab PO Q4H PRN (Reason: Pain) magnesium hydroxide [Milk of Magnesia] 400 mg/5 mL Suspension 30 ml PO DAILY PRN (Reason: Constipation) bisacodyl [Dulcolax (bisacodyl)] 10 mg Suppository 10 mg GA DAILY PRN (Reason: Constipation) Fleet Enema 19-7 gram/118 mL Enema 118 ml GA DAILY PRN (Reason: Constipation) rosuvastatin 20 mg tablet 20 mg PO DAILY Artificial Tears (cmc) 1 % Drops 1 drp OPHTHALMIC (EYE) PRN diltiazem HCl [Cardizem CD] 180 mg capsule,extended release 24hr 180 mg PO DAILY Qty: 30 0RF mupirocin 2 % Ointment 1 applic TOPICAL Q6D Rx Instructions: apply to axillary folds, groin folds nystatin 100,000 unit/gram Powder 1 applic TOPICAL BID PRN (Reason: SKIN REDNESS) chlorhexidine gluconate [Hibiclens] 4 % Liquid See Rx Instructions .ROUTE .COMPLEX Rx Instructions: APPLY TOPICALLY ALL OVER BODY EXCEPT FACE, EVERY 6 DAYS. insulin lispro [Humalog KwikPen Insulin] 100 unit/mL Insulin Pen See Rx Instructions .ROUTE .COMPLEX Rx Instructions: INJECT 15 UNITS 3 TIMES DAILY PLUS SLIDING SCALE: BS 150-200=0 UNITS, 201-250=2 UNITS, 251-300=4 UNITS, 301-350=6 UNITS, 351-400=8 UNITS. cholecalciferol (vitamin D3) 1,250 mcg (50,000 unit) Capsule 1 mcg PO Q7D Rx Instructions: ON SUNDAY diclofenac sodium 1 % Gel See Rx Instructions .ROUTE .COMPLEX Rx Instructions: APPLY 4G TOPICALLY TO RIGHT KNEW EVERY 12 HOURS NEEDED FOR PAIN. cyanocobalamin (vitamin B-12) 1,000 mcg/mL Kit 100 mcg IM DAILY Rx Instructions: one time daily every 7 days for vitamin deficiency for 4 weeks insulin glargine 100 unit/mL Solution 50 unit SUBCUT BID Rx Instructions: hold if blood glucose is less than 100 potassium chloride [Klor-Con M20] 20 mEq Tablet,Er Particles/Crystals 20 meq PO DAILY albuterol sulfate 2.5 mg /3 mL (0.083 %) solution for nebulization 2.5 mg inhalation TID PRN (Reason: copd) alprazolam 0.25 mg tablet 0.25 mg PO Q12H PRN (Reason: Anxiety) sucralfate 1 gram Tablet 1 g PO AC&BEDTIME Qty: 120 1RF pantoprazole 40 mg Tablet,Delayed Release (Dr/Ec) 40 mg PO BIDWM Qty: 60 0RF ferrous sulfate 325 mg (65 mg iron) Tablet 325 mg PO BIDWM Qty: 60 0RF Discharge Orders: Discharge Order (Routine); Ordered 04/05/24 Ordered By: Gato Nguyen Referrals: Elaine Topete PA [Primary Care Provider] - Discharge Diet: Advance as tolerated, Cardiac, Diabetic and Low Salt Discharge Activity: Resume usual activity and Increase activity as tolerated Patient Instructions: Anemia, Fluconazole (By mouth), Levofloxacin (By mouth), Skin Yeast Infection (GEN), Opioid Safety Activity Restrictions/Additional Instructions: 1. Take medications as prescribed. 2. Increase activity as tolerated. 3. Follow-up with provider at facility within 1 week. Discharge Attestations Time Spent in Discharge Care*: greater than 30 min Status at Discharge: Cognitive status at discharge: cognitively intact, Behavioral status at discharge: cooperative, Quality Metrics Clinical Quality Measures [ No reported AMI, CVA or VTE this stay] Coding Level of Care Code Acute Code for Chg Fwd Diagnoses Acute on chronic hypoxic respiratory failure J96.21 CHF exacerbation I50.9 Acute on chronic anemia D64.9 Acute encephalopathy G93.40 UTI (urinary tract infection) N39.[address] R93.2 Candidal intertrigo B37.2
[2024-04-05 11:48] LABS: Glucose Point of Care 140 mg/dL (70-110)
--- NOTE | 2024-04-05 12:10 | PC.NURSE ---
Report called to SHIRA Darby at [facility]. All questions answered.
--- NOTE | 2024-04-05 12:15 | PC.NURSE ---
Notified [facility] dispatch of need for transportation to [place] from [facility]. PCS form completed.
== END 2024-04-05 13:45 | disposition intermediate care facility (04) | DRG 291 ==
LOC: ER 02:47 → MEDSURG 03:02
PROVIDERS: Admitting Provider Internal Medicine; Emergency Provider Emergency Medicine; PCP Physician Assistant; Visit Provider Internal Medicine
DX: I11.0 Hypertensive heart disease with heart failure (principal); G93.41 Metabolic encephalopathy; I50.33 Acute on chronic diastolic (congestive) heart failure; J96.21 Acute and chronic respiratory failure with hypoxia; J96.22 Acute and chronic respiratory failure with hypercapnia; I48.20 Chronic atrial fibrillation, unspecified; Z68.41 Body mass index [BMI] 40.0-44.9, adult; N39.0 Urinary tract infection, site not specified; L03.317 Cellulitis of buttock; L03.312 Cellulitis of back [any part except buttock and flank]; K21.9 Gastro-esophageal reflux disease without esophagitis; I25.10 Atherosclerotic heart disease of native coronary artery without angina pectoris; E78.5 Hyperlipidemia, unspecified; J44.9 Chronic obstructive pulmonary disease, unspecified; Z86.73 Personal history of transient ischemic attack (TIA), and cerebral infarction without residual deficits; E11.9 Type 2 diabetes mellitus without complications; G25.81 Restless legs syndrome; E66.01 Morbid (severe) obesity due to excess calories; Z87.01 Personal history of pneumonia (recurrent); Z99.81 Dependence on supplemental oxygen; Z79.899 Other long term (current) drug therapy; Z79.4 Long term (current) use of insulin; Z88.5 Allergy status to narcotic agent; Z88.0 Allergy status to penicillin; Z88.2 Allergy status to sulfonamides; M81.0 Age-related osteoporosis without current pathological fracture; Z87.440 Personal history of urinary (tract) infections; Z86.14 Personal history of Methicillin resistant Staphylococcus aureus infection; Z90.49 Acquired absence of other specified parts of digestive tract; Z87.891 Personal history of nicotine dependence; D64.9 Anemia, unspecified; B37.2 Candidiasis of skin and nail
CPT/HCPCS: 36415; 36416; 36430; 36600; 51702; 71045; 71250; 74176; 80051; 80053; 80503; 81001; 82140; 82330; 82728; 82805; 82962; 83010; 83540; 83550; 83605; 83615; 83735; 83880; 85007; 85014; 85018; 85025; 85045; 85610; 85730; 86850; 86900; 86920; 87077; 87086; 87186; 93308; 94640; 94660; 94664; 96372; J1450; J1815; J1940; J2020; J2185; J7613; P9016; P9040

== ENCOUNTER 2024-04-28 14:06 | Oncology outpatient (recurring) (ONCR) | payer MEDICARE, MEDICAID, SELFPAY ==
[2024-04-21] MEDS: sodium chloride 0.9% 250 ML 75 ML IV (14:42)
[2024-04-21] MEDS: ferric carboxy (PYXIS) 750 MG in sodium chloride 0.9% (100 ml) 100 ML 345 MG IV (14:43)
[2024-04-21 15:26] VITALS: BP 146/83; PULSE 74; RESP 16; TEMP 36.6; O2SAT 98
[2024-04-28] MEDS: ferric carboxy (PYXIS) 750 MG in sodium chloride 0.9% (100 ml) 100 ML 345 MG IV (14:24)
[2024-04-28 14:27] VITALS: BP 113/63; PULSE 98; RESP 16; TEMP 36.3; O2SAT 94
[2024-04-28 14:51] VITALS: BP 122/67; PULSE 96; O2SAT 98
== END 2024-05-08 23:59 | disposition home or self-care (01) ==
PROVIDERS: PCP Physician Assistant; Visit Provider Physician Assistant
DX: Z53.9 Procedure and treatment not carried out, unspecified reason; Z79.899 Other long term (current) drug therapy; D64.9 Anemia, unspecified
CPT/HCPCS: 96365; J1439; J7050

== ENCOUNTER → 2024-05-13 10:20 | Outpatient (BNVA) | payer MEDICARE, MEDICAID, SELFPAY | PROVIDERS: PCP Physician Assistant; Referring Provider Physician Assistant; Visit Provider Surgery | DX: E66.01 Morbid (severe) obesity due to excess calories (principal); I50.9 Heart failure, unspecified; I48.20 Chronic atrial fibrillation, unspecified; D72.829 Elevated white blood cell count, unspecified; D64.9 Anemia, unspecified | CPT/HCPCS: 99204 ==

== ENCOUNTER 2025-02-15 16:20 | Emergency (ER) | payer MEDICARE, MEDICAID, SELFPAY ==
--- NOTE | 2025-02-15 16:23 | XRR_ITS ---
PROCEDURE INFORMATION: Exam: XR Chest Exam date and time: 02/15/2025 4:47 PM Age: 79 years old Clinical indication: Dyspnea; Additional info: SOB TECHNIQUE: Imaging protocol: Radiologic exam of the chest. Views: 1 view. COMPARISON: [place] [id number] 04/04/2024 1:46 AM FINDINGS: Lungs: Mild atelectasis/opacity at the left lung base. Pleural spaces: Unremarkable. No pleural effusion. No pneumothorax. Heart/Mediastinum: Unremarkable. No cardiomegaly. Bones/joints: Unremarkable. XR/XR chest 1V portable [id number] IMPRESSION: Mild left basilar opacity.
--- NOTE | 2025-02-15 16:27 | W.ED.SOB ---
HPI - SOB/Dyspnea General: Chief Complaint: Shortness of Breath/Dyspnea Stated Complaint: sob Time Seen by Provider: 02/15/25 16:24 Source: patient and EMS Mode of arrival: EMS Limitations: no limitations History of Present Illness: HPI Narrative: [id number] yo female that is here from retirement with hx of copd. Pt is on oxygen at baseline 4L. EMS states she has had increasing shortness of breath the last 2 days and ems states they did give her a breathing treatment in route. they states she was 69% on her 4 liter but has improved after treatment. Pt states she has had increasing weakness as well. Denies any fever. Associated symptoms: Deny abdominal pain, chest pain, fever(s), nausea or vomiting Related Data Home Medications ?Medication ?Instructions ?Recorded ?Confirmed ropinirole 1 mg tablet 1 mg PO DAILY 07/18/19 05/13/24 docusate sodium 100 mg tablet 100 mg PO BID 01/06/20 05/13/24 (Stool Softener) ondansetron HCl 4 mg tablet 4 mg PO Q6H PRN Nausea 01/25/23 05/13/24 acetaminophen 325 mg tablet 650 mg PO Q4H PRN Pain OR FEVER 08/15/23 05/13/24 bisacodyl 10 mg rectal suppository 10 mg MS DAILY PRN Constipation 08/15/23 05/13/24 (Dulcolax (bisacodyl)) carboxymethylcellulose sodium 1 % 1 drp ophthalmic (eye) PRN DRY EYES 08/15/23 05/13/24 eye drops (Artificial Tears (carboxymethylcellulose)) hydrocodone 5 mg-acetaminophen 325 1 tab PO Q4H PRN Pain 08/15/23 05/13/24 mg tablet magnesium hydroxide 400 mg/5 mL 30 ml PO DAILY PRN Constipation 08/15/23 05/13/24 oral suspension (Milk of Magnesia) rosuvastatin 20 mg tablet 20 mg PO DAILY 08/15/23 05/13/24 sodium phosphates 19 gram-7 118 ml MS DAILY PRN Constipation 08/15/23 05/13/24 gram/118 mL enema (Fleet Enema) chlorhexidine gluconate 4 % See Rx Instructions .Route .COMPLEX 01/15/24 05/13/24 topical liquid (Hibiclens) cholecalciferol (vitamin D3) 1,250 1 mcg PO Q7D 01/15/24 05/13/24 mcg (50,000 unit) capsule diclofenac sodium 1 % topical gel See Rx Instructions .Route .COMPLEX 01/15/24 05/13/24 insulin lispro 100 unit/mL See Rx Instructions .Route .COMPLEX 01/15/24 05/13/24 subcutaneous pen (Humalog KwikPen (U-100) Insulin) mupirocin 2 % topical ointment 1 applic topical Q6D 01/15/24 05/13/24 nystatin 100,000 unit/gram topical 1 applic topical BID PRN SKIN 01/15/24 05/13/24 powder REDNESS albuterol sulfate 2.5 mg/3 mL 2.5 mg inhalation TID PRN copd 02/11/24 05/13/24 (0.083 %) solution for nebulization alprazolam 0.25 mg tablet 0.25 mg PO Q12H PRN Anxiety 02/11/24 05/13/24 cyanocobalamin (vitamin B-12) 100 mcg IM DAILY 03/08/24 05/13/24 1,000 mcg/mL injection kit insulin glargine 100 unit/mL 50 unit SUBCUT BID 03/08/24 05/13/24 subcutaneous solution potassium chloride 20 mEq 20 meq PO DAILY 03/08/24 05/13/24 tablet,extended release(part/cryst) (Lauren-Con M) Previous Rx's ?Medication ?Instructions ?Recorded albuterol sulfate 90 mcg/actuation 1 inh inhalation Q6H PRN shortness 02/02/23 aerosol inhaler of breath or wheezing #8.5 grams fluticasone fur. 100 mcg-umeclid 1 inh inhalation DAILY #60 ea 02/02/23 62.5 mcg-vilant 25 mcg inhalat.powder (Trelegy Ellipta) magnesium oxide 400 mg (241.3 mg 400 mg PO BID #6 tabs 02/02/23 magnesium) tablet diltiazem HCl 180 mg 180 mg PO DAILY #30 caps 08/16/23 capsule,extended release 24 hr (Cardizem CD) ferrous sulfate 325 mg (65 mg 325 mg PO BIDWM #60 tabs 02/13/24 iron) tablet pantoprazole 40 mg tablet,delayed 40 mg PO BIDWM #60 tabs 02/13/24 release sucralfate 1 gram tablet 1 g PO AC&BEDTIME #120 tabs 02/13/24 cephalexin 500 mg capsule 500 mg PO TID 7 days #21 caps 02/15/25 prednisone 50 mg tablet 50 mg PO DAILY #5 tabs 02/15/25 Allergies Allergy/AdvReac Type Severity Reaction Status Date / Time morphine Allergy ALGY-Rash Verified 02/27/24 01:53 quinine Allergy ALGY-Rash Verified 02/27/24 01:53 Sulfa (Sulfonamide Allergy ALGY-Rash Verified 02/27/24 01:53 Antibiotics) Penicillins AdvReac ALGY-Rash Verified 02/27/24 01:53 Review of Systems Const: Denies: fever(s), chills, body aches or change in appetite Eyes: Denies: blurry vision or eye discomfort Card: Denies: chest pain Resp: Reports: dyspnea GI: Denies: abdominal pain, nausea, vomiting or diarrhea Musc: Denies: neck pain or back pain Skin/Breast: Denies: rash Neuro: Denies: headache(s) PFSH ED PFSH: Medical History Candidal intertrigo Abnormal liver CT CHF exacerbation Acute on chronic anemia Acute on chronic hypoxic respiratory failure Hypoxia Pneumonia Heart failure with preserved left ventricular function History of echocardiogram 08/2023 technically difficult study due to poor ultrasonic windows, grossly normal LV systolic function, grade 1 diastolic dysfunction, mild MR, mild TR, left atrial dilitation Osteoporosis DEXA 09/2023 Right femoral neck T score -4.2 and Z score -0.3; L spine T score 0.2, Z score 0.9, fracture risk 10 yr probability 45%, hip fracture 22.9% ESBL 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 difficile colitis Gastroesophageal reflux disease Hyperlipidemia On apixaban therapy History of ESBL E. coli infection History of MRSA infection History of small bowel obstruction Medically managed to date Diabetes mellitus Coronary artery disease HTN (hypertension), malignant COPD (chronic obstructive pulmonary disease) Morbid obesity Surgical History History of colonoscopy (~2013) History of bladder suspension procedure History of orthopedic surgery Wrist and left leg History of cholecystectomy History of tubal ligation History of appendectomy Family History Other CAD (coronary artery disease) Cancer Social History Smoking and tobacco/nicotine status: former use of tobacco/nicotine Quit status (tobacco/nicotine): has quit using Alcohol intake: never Substance/Drug Use: never Caregiver/support person: Yes (Son ) Housing: [facility] Physical Exam Const: COMMON NORMALS: patient oriented x3 GENERAL APPEARANCE: ill appearing HENMT: COMMON NORMALS: normocephalic and atraumatic HEAD & SCALP: normocephalic and atraumatic Eye: COMMON NORMALS: conjunctivae normal CONJUNCTIVA: Yes conjunctivae normal Neck/C-Spine: COMMON NORMALS: full ROM and supple Chest: COMMONS NORMALS: normal inspection of the chest Resp: COMMON NORMALS: No retractions and No use of accessory muscles EFFORT & INSPECTION: Yes audible wheezes AUSCULTATION: wheezes Cardio: COMMON NORMALS: regular rate, regular rhythm and No murmurs present (Cardio) RATE: regular rate RHYTHM: regular rhythm GI: COMMON NORMALS: Normal to inspection, nondistended, normoactive bowel sounds present, Soft to palpation, non-tender and no masses PALPATION: Yes Soft to palpation Extremity: COMMON NORMALS: normal to inspection and full ROM Neuro: COMMON NORMALS: patient oriented x3, moves all extremities and no focal motor deficits Psych: COMMON NORMALS: mental status grossly normal, Normal thought process present and cooperative THOUGHT PROCESS: Normal thought process present Skin: COMMON NORMALS: no rashes or lesions noted and no wounds GENERAL SKIN EXAM: no rashes or lesions noted Course Vital Signs: Vital signs: Vital Signs Temperature 98.2 F 02/15/25 16:29 Pulse Rate 89 02/15/25 17:00 Respiratory Rate 20 H 02/15/25 16:46 Blood Pressure 116/75 02/15/25 16:29 Pulse Oximetry 91 02/15/25 16:46 Oxygen Delivery Me thod Nasal Cannula 02/15/25 16:46 Oxygen Flow Rate 4 02/15/25 16:46 MDM - SOB/Dyspnea Medical Decision Making Patient presents for shortness of breath and chronic COPD she is now at her baseline feels much improved after breathing treatments she is stable for discharge we will place her on steroids along with antibiotics she has to follow-up with her PCP and return if worsening. Medical Records I reviewed the patient's medical records. Lab Data I reviewed the patient's lab results. 02/15/25 16:44 02/15/25 16:44 Labs/Radiology: Radiology Impressions Chest X-Ray 02/15/25 16:23 IMPRESSION: Mild left basilar opacity. Laboratory Results WBC 19.32 10^3/uL (3.29-11.43) H 02/15/25 16:44 RBC 4.35 10^6/uL (3.85-5.65) 02/15/25 16:44 Hgb 12.30 g/dL (11.27-16.99) 02/15/25 16:44 Hct 40.4 % (36-47) 02/15/25 16:44 MCV 92.9 fl (85-98) 02/15/25 16:44 MCH 28.3 pg (27-33) 02/15/25 16:44 MCHC 30.4 g/dL (30-55) 02/15/25 16:44 RDW 16.9 % (12.1-15.1) H 02/15/25 16:44 Plt Count 249 10^3/cmm (157-399) 02/15/25 16:44 MPV 11.9 fL (7.4-10.4) H 02/15/25 16:44 Neut % (Auto) 54.6 % 02/15/25 16:44 Lymph % (Auto) 33.1 % 02/15/25 16:44 [place] % (Auto) 7.8 % 02/15/25 16:44 Eos % (Auto) 1.3 % 02/15/25 16:44 Baso % (Auto) 1.0 % 02/15/25 16:44 Neut # (Auto) 10.52 10^3/uL (1.8-7.7) H 02/15/25 16:44 Lymph # (Auto) 6.4 10^3/uL (0.8-4.8) H 02/15/25 16:44 [place] # (Auto) 1.5 10^3/uL (0.2-0.9) H 02/15/25 16:44 Eos # (Auto) 0.3 10^3/uL (0.0-0.8) 02/15/25 16:44 Baso # (Auto) 0.2 10^3/uL (0.0-0.1) H 02/15/25 16:44 Nucleated RBC % (auto) 0.7 % 02/15/25 16:44 Nucleated RBCs # 0.1 /100WBC 02/15/25 16:44 PT 13.80 SECONDS (12.1-14.9) 02/15/25 16:44 INR 0.99 (0.8-1.2) 02/15/25 16:44 Specimen Type Arterial 02/15/25 16:56 Sample Site Radial, right 02/15/25 16:56 ABG pH 7.37 (7.35-7.45) 02/15/25 16:56 ABG pCO2 52.7 mmHg (35-45) H 02/15/25 16:56 ABG pO2 67.2 mmHg (80.0-100.0) L 02/15/25 16:56 ABG PO2/FiO2 Ratio 186 02/15/25 16:56 ABG HCO3 30.7 mmol/L (22-26) H 02/15/25 16:56 ABG Base Excess 4.2 mmol/L (-2.0-2.0) H 02/15/25 16:56 Monico Test Pos 02/15/25 16:56 Hematocrit 39.5 % (37-47) 02/15/25 16:56 Hgb O2 Saturation 90.7 % (95-100) L 02/15/25 16:56 Carboxyhemoglobin 1.6 %THgb (0.4-20.1) 02/15/25 16:56 Methemoglobin 0.2 % (0.4-1.5) L 02/15/25 16:56 Total Hemoglobin 12.9 g/dL (12-16) 02/15/25 16:56 O2 Delivery Device Nc 02/15/25 16:56 O2 Liters/Min 4.0 % 02/15/25 16:56 FiO2 36.0 % 02/15/25 16:56 Junior Buyer ID glc 02/15/25 16:56 Sodium 136 mmol/L (136-145) 02/15/25 16:44 Potassium 5.3 mmol/L (3.5-5.1) H 02/15/25 16:44 Chloride 97 mmol/L (98-107) L 02/15/25 16:44 Carbon Dioxide 29 mmol/L (22-29) 02/15/25 16:44 Anion Gap 15.3 (5-19) 02/15/25 16:44 BUN 22 mg/dL (8-23) 02/15/25 16:44 Creatinine 1.0 mg/dL (0.5-0.9) H 02/15/25 16:44 GFR Calculation Not Reportable 02/15/25 16:44 Glucose 172 mg/dL (65-115) H 02/15/25 16:44 Calculated Osmolality 289 mOsm/kg (285-295) 02/15/25 16:44 Calcium 9.3 mg/dL (8.5-10.5) 02/15/25 16:44 Total Bilirubin 0.3 mg/dL (0.15-1.2) 02/15/25 16:44 AST 21 U/L (0-32) 02/15/25 16:44 ALT 20 U/L (0-33) 02/15/25 16:44 Alkaline Phosphatase 134 U/L (35-105) H 02/15/25 16:44 NT-Pro-B Natriuret Pep 807 pg/mL (0-450) H 02/15/25 16:44 Total Protein 7.2 g/dL (6.6-8.7) 02/15/25 16:44 Albumin 3.7 g/dL (3.5-5.2) 02/15/25 16:44 Globulin 3.5 g/dL (1.3-4.6) 02/15/25 16:44 All radiology interpretation(s) finalized by discharge EKG Data EKG 1: I personally reviewed and interpreted this EKG as follows: EKG Interpretation Date: 02/15/25 EKG interpretation time: 16:36 Interpretation: nsr hr [address] or t wave abnormalities qrs 74 qtc 391 Discharge Plan Discharge Patient Disposition: Home Clinical Impression: Acute exacerbation of chronic obstructive airways disease Condition: Stable Prescriptions: New cephalexin 500 mg capsule 500 mg PO TID 7 Days Qty: 21 0RF prednisone 50 mg tablet 50 mg PO DAILY Qty: 5 0RF No Action ropinirole 1 mg Tablet 1 mg PO DAILY docusate sodium [Stool Softener] 100 mg Tablet 100 mg PO BID ondansetron HCl 4 mg Tablet 4 mg PO Q6H PRN (Reason: Nausea) magnesium oxide 400 mg (241.3 mg magnesium) Tablet 400 mg PO BID Qty: 6 0RF Trelegy Ellipta 100-62.5-25 mcg blister with device 1 inh inhalation DAILY Qty: 60 0RF albuterol sulfate 90 mcg/actuation HFA aerosol inhaler 1 inh inhalation Q6H PRN (Reason: shortness of breath or wheezing) Qty: 8.5 0RF acetaminophen 325 mg Tablet 650 mg PO Q4H PRN (Reason: Pain OR FEVER) hydrocodone-acetaminophen 5-325 mg tablet 1 tab PO Q4H PRN (Reason: Pain) magnesium hydroxide [Milk of Magnesia] 400 mg/5 mL Suspension 30 ml PO DAILY PRN (Reason: Constipation) bisacodyl [Dulcolax (bisacodyl)] 10 mg Suppository 10 mg MS DAILY PRN (Reason: Constipation) Fleet Enema 19-7 gram/118 mL Enema 118 ml MS DAILY PRN (Reason: Constipation) rosuvastatin 20 mg tablet 20 mg PO DAILY Artificial Tears (cmc) 1 % Drops 1 drp OPHTHALMIC (EYE) PRN diltiazem HCl [Cardizem CD] 180 mg capsule,extended release 24hr 180 mg PO DAILY Qty: 30 0RF mupirocin 2 % Ointment 1 applic TOPICAL Q6D Rx Instructions: apply to axillary folds, groin folds nystatin 100,000 unit/gram Powder 1 applic TOPICAL BID PRN (Reason: SKIN REDNESS) chlorhexidine gluconate [Hibiclens] 4 % Liquid See Rx Instructions .ROUTE .COMPLEX Rx Instructions: APPLY TOPICALLY ALL OVER BODY EXCEPT FACE, EVERY 6 DAYS. insulin lispro [Humalog KwikPen Insulin] 100 unit/mL Insulin Pen See Rx Instructions .ROUTE .COMPLEX Rx Instructions: INJECT 15 UNITS 3 TIMES DAILY PLUS SLIDING SCALE: BS 150-200=0 UNITS, 201-250=2 UNITS, 251-300=4 UNITS, 301-350=6 UNITS, 351-400=8 UNITS. cholecalciferol (vitamin D3) 1,250 mcg (50,000 unit) Capsule 1 mcg PO Q7D Rx Instructions: ON SUNDAY diclofenac sodium 1 % Gel See Rx Instructions .ROUTE .COMPLEX Rx Instructions: APPLY 4G TOPICALLY TO RIGHT KNEW EVERY 12 HOURS NEEDED FOR PAIN. cyanocobalamin (vitamin B-12) 1,000 mcg/mL Kit 100 mcg IM DAILY Rx Instructions: one time daily every 7 days for vitamin deficiency for 4 weeks insulin glargine 100 unit/mL Solution 50 unit SUBCUT BID Rx Instructions: hold if blood glucose is less than 100 potassium chloride [Klor-Con M20] 20 mEq Tablet,Er Particles/Crystals 20 meq PO DAILY albuterol sulfate 2.5 mg /3 mL (0.083 %) solution for nebulization 2.5 mg inhalation TID PRN (Reason: copd) alprazolam 0.25 mg tablet 0.25 mg PO Q12H PRN (Reason: Anxiety) sucralfate 1 gram Tablet 1 g PO AC&BEDTIME Qty: 120 1RF pantoprazole 40 mg Tablet,Delayed Release (Dr/Ec) 40 mg PO BIDWM Qty: 60 0RF ferrous sulfate 325 mg (65 mg iron) Tablet 325 mg PO BIDWM Qty: 60 0RF Discharge Orders: Discharge ED (Routine); Ordered 02/15/25 Ordered By: Luna Nielsen Referrals: Elaine Topete PA [Primary Care Provider, Physicians Rental Salesperson] - 4-7 days Discharge Diet: Advance as tolerated Discharge Activity: Resume usual activity Patient Instructions: COPD (Chronic Obstructive Pulmonary Disease) (ED), Acute Nausea and Vomiting (ED) Print Language: Micronesian Coding Level of Care Code ED Wet Inspector Optical Glass for Gema Hatfield
[2025-02-15 16:29] VITALS: BP 116/75; PULSE 104; RESP 21; TEMP 36.8; O2SAT 93; BMI 54.9
--- NOTE | 2025-02-15 16:36 | ECG_ITS ---
[facility] Test Date: 2025-02-15 Pat Name: Purvi Sparks Department: Room: Gender: Female Thread Reeler: : 1945 Requested By: Luna Nielsen Order Number: [id number] Nia MD: Leonel Rodriguez M.D. Measurements Intervals [place] Rate: 86 P: -11 GA: 264 QRS: -33 QRSD: 74 T: 53 QT: 348 QTc: 417 Interpretive Statements SINUS RHYTHM WITH FIRST DEGREE AV BLOCK LOW QRS VOLTAGE IN PRECORDIAL LEADS [QRS DEFLECTION < 1.0 mV IN CHEST LEADS] INFERIOR MYOCARDIAL INFARCTION , PROBABLY OLD [40+ ms Q WAVE AND/OR ST/T ABNORMALITY IN II/aVF] ANTEROLATERAL MYOCARDIAL INFARCTION , PROBABLY OLD [40+ ms Q WAVE IN I/aVL/V3-V6] Compared to ECG 03/29/2024 13:05:33 No significant changes Electronically Signed On 02-17-2025 08:16:23 CDT by Leonel Rodriguez M.D. [email or web address]
[2025-02-15 16:46] VITALS: PULSE 86; RESP 20; O2SAT 91
[2025-02-15 16:50] LABS: Hematocrit 40.4 % (36-47); Hemoglobin 12.30 g/dL (11.27-16.99); Mean Corpuscular HGB Conc 30.4 g/dL (30-55); Mean Corpuscular Hemoglobin 28.3 pg (27-33); Mean Corpuscular Volume 92.9 fl (85-98); Nucleated Red Blood Cells % 0.7 %; Platelet Count 249 10^3/cmm (157-399); Red Blood Count 4.35 10^6/uL (3.85-5.65); White Blood Count 19.32 10^3/uL (3.29-11.43)
[2025-02-15 17:00] VITALS: PULSE 89
[2025-02-15 17:04] LABS: INR 0.99 (0.8-1.2); Prothrombin Time 13.80 SECONDS (12.1-14.9)
[2025-02-15 17:06] LABS: ABG PCO2 52.7 mmHg (35-45); ABG PH Result 7.37 (7.35-7.45); Arterial Blood Gas Hematocrit 39.5 % (37-47); Blood Gas Allen Test Pos; Blood Gas LPM 4.0 %; Blood Gas Operator Identificat glc; Blood Gas Sample Site Radial, right; Blood Gas Sample Type Arterial; Carboxyhemoglobin 1.6 %THgb (0.4-20.1); HCO3 ABG 30.7 mmol/L (22-26); Methemoglobin 0.2 % (0.4-1.5); PO2 ABG 67.2 mmHg (80.0-100.0); PO2 FiO2 Ratio Arterial Blood 186
[2025-02-15 17:21] LABS: Alanine Aminotransferase 20 U/L (0-33); Albumin Level 3.7 g/dL (3.5-5.2); Alkaline Phosphatase 134 U/L (35-105); Anion Gap 15.3 (5-19); Aspartate Amino Transferase 21 U/L (0-32); Blood Urea Nitrogen 22 mg/dL (8-23); Calcium 9.3 mg/dL (8.5-10.5); Carbon Dioxide 29 mmol/L (22-29); Chloride 97 mmol/L (98-107); Globulin 3.5 g/dL (1.3-4.6); Glucose 172 mg/dL (65-115); NT Pro B Type Natriuretic Pept 807 pg/mL (0-450); Osmolality Calculated 289 mOsm/kg (285-295); Potassium 5.3 mmol/L (3.5-5.1); Sodium 136 mmol/L (136-145); Total Protein 7.2 g/dL (6.6-8.7)
[2025-02-15 17:22] LABS: Creatinine Clr Calc Pharmacy 63.3004
[2025-02-15] MEDS: methylPREDNISolone sod succ 125 mg/2 mL INJ IVP (18:00)
--- OUTSIDE RECORDS SUMMARY | 2025-02-18 07:45 | XMS_ITS | Encounter Summary ---
Author Organization [facility] Address [address] [place] [address] Care Team Providers Care Traffic Coordinator Name Role Phone Magdi Francisco MD Primary Care Provider Unavail able Encounter Details Date Type Department Care Team (Late st Contact Info) Description 12/31/2001 Outpatient Historical [facility] [address] [facility] [address] [place] [address] Mary Scott MD NO ADDRESS ON FILE OT ABNORMAL RADIOLOG EXAM BREAST (Primary Dx) Social History Tobacco Use Types Packs/Day Years Used Date Smoking Tobacco: Never Assessed Comments Unknown Sex and Gender Information Value Date Recorded Sex Assigned at Not on file Legal Sex Female 2:58 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
--- OUTSIDE RECORDS SUMMARY | 2025-02-18 07:45 | XMS_ITS | Encounter Summary ---
Author Organization [facility] Address [address] [facility] Attn: Epic Prelude ADT [place] [address] Care Team Providers Care Radio Installer Automobile Name Role Phone Magdi Francisco MD Primary Care Provider Unavail able Encounter Details Date Type Department Care Team (Late st Contact Info) Description 10/15/2001 Outpatient Historical Mariia Alston, SUPERVISOR FELTING NO ADDRESS ON FILE Social History Tobacco Use Types Packs/Day Years Used Date Smoking Tobacco: Never Assessed Comments Unknown Sex and Gender Information Value Date Recorded Sex Assigned at Not on file Legal Sex Female 2:58 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
--- OUTSIDE RECORDS SUMMARY | 2025-02-18 07:45 | XMS_ITS | Encounter Summary ---
Author Organization [facility] Address [address] [facility] Attn: Epic Prelude ADT [place] [phone] Care Team Providers Care Hat And Cap Opener Name Role Phone Magdi Francisco MD Primary Care Provider Unavail able Encounter Details Date Type Department Care Team (Late st Contact Info) Description 11/05/2001 Outpatient Historical Magdi Francisco MD NO ADDRESS ON FILE Social History Tobacco Use Types Packs/Day Years Used Date Smoking Tobacco: Never Assessed Comments Unknown Sex and Gender Information Value Date Recorded Sex Assigned at Not on file 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
--- OUTSIDE RECORDS SUMMARY | 2025-02-18 07:45 | XMS_ITS | Encounter Summary ---
Author Organization [facility] Address [address] [place] [address] Care Team Providers Care Assistant Manager Name Role Phone Magdi Francisco MD Primary Care Provider Unavail able Encounter Details Date Type Department Care Team (Latest Contact Info) Description 12/30/2001 Outpatient Historical [facility] [place] [facility] [address] [phone] Magdi Francisco MD NO ADDRESS ON FILE DIABETES UNCOMPL ADULT-TYPE II (CMS/HCC) (Primary Dx); OBESITY NOS; DERMATOPHYTOSIS OF NAIL; AFTERCARE ENVIRONMENTAL HEALTH SAFETY MANAGER USE MEDICATN Social History Tobacco Use Types Packs/Day Years Used Date Smoking Tobacco: Never Assessed Comments Unknown Sex and Gender Information Value Date Recorded Sex Assigned at Not on file Legal Sex Female 2:58 AM PRINT DEVELOPER AUTOMATIC Gender Identity Not on file Sexual Orientation Not on file documented as of this encounter Plan of Treatment Not on file documented as of this encounter Visit Diagnoses Diagnosis Type II or unspecified type diabetes mellitus without mention of complication, not stated as uncontrolled- Primary Obesity, unspecified Dermatophytosis of nail Encounter for long-term (current) use of other medications documented in this encounter Care Teams Assistant Manager Relationship Specialty Start Date End Date Magdi Francisco MD NO ADDRESS ON FILE PCP - General 10/30/02 documented as of this encounter
--- OUTSIDE RECORDS SUMMARY | 2025-02-18 07:45 | XMS_ITS | Encounter Summary ---
Author Organization [facility] Address [address] [place] [address] Care Team Providers Care Doctor Of Podiatry Name Role Phone Magdi Francisco MD Primary Care Provider Unavail able Encounter Details Date Type Department Care Team (Latest Contact Info) Description 02/04/2002 Outpatient Historical [facility] [place] [facility] [address] [phone] Magdi Francisco MD NO ADDRESS ON FILE ACUTE BRONCHITIS (Primary Dx); COUGH; ACUTE LARYNGITIS WO OBSTRUCTION; OSTEOPOROSIS NOS Social History Tobacco Use Types Packs/Day Years Used Date Smoking Tobacco: Never Assessed Comments Unknown Sex and Gender Information Value Date Recorded Sex Assigned at Not on file Legal Sex Female 2:58 AM KEY 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
--- OUTSIDE RECORDS SUMMARY | 2025-02-18 07:45 | XMS_ITS | Encounter Summary ---
Author Organization [facility] Address [address] [facility] Attn: Epic Prelude ADT [place] [phone] Care Team Providers Care Manager Credit Collections Name Role Phone Magdi Francisco MD Primary Care Provider Unavail able Encounter Details Date Type Department Care Team (Late st Contact Info) Description 10/11/2001 Outpatient Historical Mariia Alston, BATTERY REPAIRER NO ADDRESS ON FILE Social History Tobacco Use Types Packs/Day Years Used Date Smoking Tobacco: Never Assessed Comments Unknown Sex and Gender Information Value Date Recorded Sex Assigned at Not on file Legal Sex Female 2:58 AM TABLE TOP TILE SETTER Gender Identity Not on file Sexual Orientation Not on file documented as of this encounter Plan of Treatment Not on file documented as of this encounter Visit Diagnoses Not on filedocumented in this encounter Care Teams Manager Credit Collections Relationship Specialty Start Date End Date Magdi Francisco MD NO ADDRESS ON FILE PCP - General 10/30/02 documented as of this encounter
--- OUTSIDE RECORDS SUMMARY | 2025-02-18 07:45 | XMS_ITS | Encounter Summary ---
Author Organization [facility] Address [address] [facility] Attn: Epic Prelude ADT JEANETTE LEDBETTER [phone] Care Team Providers Care Sales Architect Name Role Phone Magdi Francisco MD Primary Care Provider Unavail able Encounter Details Date Type Department Care Team (Late st Contact Info) Description 12/31/2001 Outpatient Historical Magdi Francisco MD NO ADDRESS ON FILE Social History Tobacco Use Types Packs/Day Years Used Date Smoking Tobacco: Never Assessed Comments Unknown Sex and Gender Information Value Date Recorded Sex Assigned at Not on file Legal Sex Female 2:58 AM FOOD COUNSELOR Gender Identity Not on file Sexual Orientation Not on file documented as of this encounter Plan of Treatment Not on file documented as of this encounter Visit Diagnoses Not on filedocumented in this encounter Care Teams Sales Architect Relationship Specialty Start Date End Date Magdi Francisco MD NO ADDRESS ON FILE PCP - General 10/30/02 documented as of this encounter
--- OUTSIDE RECORDS SUMMARY | 2025-02-18 07:45 | XMS_ITS | Encounter Summary ---
Author Organization [facility] Address [address] [place] [address] Care Team Providers Care Labor Relations Analyst Name Role Phone Magdi Francisco MD Primary Care Provider Unavail able Encounter Details Date Type Department Care Team (Latest Contact Info) Description 02/11/2002 Outpatient Historical [facility] Family Medicine [place] [facility] [address] [phone] Magdi Francisco MD NO ADDRESS ON FILE ACUTE BRONCHITIS (Primary Dx); DIABETES UNCOMPL ADULT-TYPE II ([facility]) Social History Tobacco Use Types Packs/Day Years Used Date Smoking Tobacco: Never Assessed Comments Unknown Sex and Gender Information Value Date Recorded Sex Assigned at Not on file Legal Sex Female 2:58 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
--- OUTSIDE RECORDS SUMMARY | 2025-02-18 07:45 | XMS_ITS | Encounter Summary ---
Author Organization [facility] Address [address] [place] [address] Care Team Providers Care Slag Dumper Name Role Phone Magdi Francisco MD Primary Care Provider Unavail able Encounter Details Date Type Department Care Team (Latest Contact Info) Description 10/11/2001 Outpatient Historical [facility] Family Medicine [place] [facility] [address] [phone] Magdi Francisco MD NO ADDRESS ON FILE Gynecologic examination (Primary Dx); CORONARY ATHEROSCLER UNSPEC VESSEL; HYPERTENSION NOS; DIABETES UNCOMPL ADULT-TYPE II ([facility]) Social History Tobacco Use Types Packs/Day Years Used Date Smoking Tobacco: Never Assessed Comments Unknown Sex and Gender Information Value Date Recorded Sex Assigned at Not on file Legal Sex Female 2:58 AM ELECTRODE CLEANER Gender Identity Not on file Sexual Orientation Not on file documented as of this encounter Plan of Treatment Not on file documented as of this encounter Visit Diagnoses Diagnosis Gynecologic examination- Primary Gynecological examination Coronary atherosclerosis of unspecified type of vessel, [place] or graft Unspecified essential hypertension Type II or unspecified type diabetes mellitus without mention of complication, not stated as uncontrolled documented in this encounter Care Teams Slag Dumper Relationship Specialty Start Date End Date Magdi Frnacisco MD NO ADDRESS ON FILE PCP - General 10/30/02 documented as of this encounter
--- OUTSIDE RECORDS SUMMARY | 2025-02-18 07:45 | XMS_ITS | Encounter Summary ---
Author Organization [facility] Address [address] [place] [address] Care Team Providers Care Sucker Machine Operator Name Role Phone Magdi Francisco MD Primary Care Provider Unavail able Encounter Details Date Type Department Care Team (Latest Contact Info) Description 10/22/2001 Outpatient Historical [facility] Ryley Thorpe PA [address] [place] [address] LOC PRIM OSTEOART-L/LEG (Primary Dx); OSTEOPOROSIS NOS Social History Tobacco Use Types Packs/Day Years Used Date Smoking Tobacco: Never Assessed Comments Unknown Sex and Gender Information Value Date Recorded Sex Assigned at Not on file Legal Sex Female 2:58 AM DIABETES NURSE Gender Identity Not on file Sexual Orientation Not on file documented as of this encounter Plan of Treatment Not on file documented as of this encounter Visit Diagnoses Diagnosis Primary localized osteoarthrosis, lower leg- Primary Osteoporosis, unspecified documented in this encounter Care Teams Sucker Machine Operator Relationship Specialty Start Date End Date Magdi Francisco MD NO ADDRESS ON FILE PCP - General 10/30/02 documented as of this encounter
--- OUTSIDE RECORDS SUMMARY | 2025-02-18 07:45 | XMS_ITS | Encounter Summary ---
Author Organization [facility] Address [address] [facility] Attn: Epic Prelude ADT JEANETTE LEDBETTER [phone] Care Team Providers Care Sec Accountant Name Role Phone Magdi Francisco MD Primary Care Provider Unavail able Encounter Details Date Type Department Care Team (Late st Contact Info) Description 12/03/2001 Outpatient Historical Magdi Francisco MD NO ADDRESS ON FILE Social History Tobacco Use Types Packs/Day Years Used Date Smoking Tobacco: Never Assessed Comments Unknown Sex and Gender Information Value Date Recorded Sex Assigned at Not on file Legal Sex Female 2:58 AM COTTON CLEANER Gender Identity Not on file Sexual Orientation Not on file documented as of this encounter Plan of Treatment Not on file documented as of this encounter Visit Diagnoses Not on filedocumented in this encounter Care Teams Sec Accountant Relationship Specialty Start Date End Date Magdi Francisco MD NO ADDRESS ON FILE PCP - General 10/30/02 documented as of this encounter
--- OUTSIDE RECORDS SUMMARY | 2025-02-18 07:45 | XMS_ITS | Encounter Summary ---
Author Organization [facility] Address [address] [place] [address] Care Team Providers Care Fire Management Officer Name Role Phone Magdi Francisco MD Primary Care Provider Unavail able Encounter Details Date Type Department Care Team (Latest Contact Info) Description 06/04/2001 Outpatient Historical [facility] Medicine [address] [phone] Hawk Serna MD [address] [phone] ASTHMA NOS W STATUS ASTHMATICUS (Primary Dx); DIABETES UNCOMPL ADULT-TYPE II ([facility]) Social History Tobacco Use Types Packs/Day Years Used Date Smoking Tobacco: Never Assessed Comments Unknown Sex and Gender Information Value Date Recorded Sex Assigned at Not on file Legal Sex Female 2:58 AM PSYCHOLOGIST EDUCATIONAL Gender Identity Not on file Sexual Orientation Not on file documented as of this encounter Plan of Treatment Not on file documented as of this encounter Visit Diagnoses Diagnosis Unspecified asthma, with status asthmaticus- Primary Type II or unspecified type diabetes mellitus without mention of complication, not stated as uncontrolled documented in this encounter Care Teams Fire Management Officer Relationship Specialty Start Date End Date Magdi Francisco MD NO ADDRESS ON FILE PCP - General 10/30/02 documented as of this encounter
--- OUTSIDE RECORDS SUMMARY | 2025-02-18 07:45 | XMS_ITS | Encounter Summary ---
Author Organization [facility] Address [address] [place] [address] Care Team Providers Care Principal Clerk Name Role Phone Magdi Francisco MD Primary Care Provider Unavail able Encounter Details Date Type Department Care Team (Latest Contact Info) Description 11/05/2001 Outpatient Historical [facility] Family Medicine [place] [facility] [address] [phone] Magdi Francisco MD NO ADDRESS ON FILE DIABETES UNCOMPL ADULT-TYPE II (CMS/HCC) (Primary Dx); MORBID OBESITY (CMS/HCC); DERMATOPHYTOSIS OF NAIL; CORONARY ATHEROSCLER UNSPEC VESSEL Social History Tobacco Use Types Packs/Day Years Used Date Smoking Tobacco: Never Assessed Comments Unknown Sex and Gender Information Value Date Recorded Sex Assigned at Not on file Legal Sex Female 2:58 AM TIMBER RIDER Gender Identity Not on file Sexual Orientation Not on file documented as of this encounter Plan of Treatment Not on file documented as of this encounter Visit Diagnoses Diagnosis Type II or unspecified type diabetes mellitus without mention of complication, not stated as uncontrolled- Primary Morbid obesity (CMS/HCC) Morbid obesity Dermatophytosis of nail Coronary atherosclerosis of unspecified type of vessel, [place] or graft documented in this encounter Care Teams Principal Clerk Relationship Specialty Start Date End Date Magdi Francisco MD NO ADDRESS ON FILE PCP - General 10/30/02 documented as of this encounter
--- OUTSIDE RECORDS SUMMARY | 2025-02-18 07:45 | XMS_ITS | Encounter Summary ---
Author Organization [facility] Address [address] [place] [address] Care Team Providers Care Carriage Feeder Name Role Phone Magdi Francisco MD Primary Care Provider Unavail able Encounter Details Date Type Department Care Team (Latest Contact Info) Description 10/02/2001 Outpatient Historical [facility] Family Medicine [place] [facility] [address] [phone] Magdi Francisco MD NO ADDRESS ON FILE SHORTNESS OF BREATH (Primary Dx); COUGH; ACUTE SINUSITIS NOS; ACUTE BRONCHITIS Social History Tobacco Use Types Packs/Day Years Used Date Smoking Tobacco: Never Assessed Comments Unknown Sex and Gender Information Value Date Recorded Sex Assigned at Not on file Legal Sex Female 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
--- OUTSIDE RECORDS SUMMARY | 2025-02-18 07:46 | XMS_ITS | Encounter Summary ---
Author Organization [facility] Address [address] [place] [address] Care Team Providers Care Aircraft Steel Fabricator Name Role Phone Magdi Francisco MD Primary Care Provider Unavail able Encounter Details Date Type Department Care Team (Latest Contact Info) Description 12/14/1999 Outpatient Historical [facility] Medicine [address] [phone] [place] [address] [place] [phone] Other and unspecified hyperlipidemia (Primary Dx); Unspecified essential hypertension Social History Tobacco Use Types Packs/Day Years Used Date Smoking Tobacco: Never Assessed Comments Unknown Sex and Gender Information Value Date Recorded Sex Assigned at Not on file Legal Sex Female 2:58 AM FINANCIAL WELLNESS 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
--- OUTSIDE RECORDS SUMMARY | 2025-02-18 07:46 | XMS_ITS | Encounter Summary ---
Author Organization [facility] Address [address] [place] [address] Care Team Providers Care Hairspring Adjuster Name Role Phone Magdi Francisco MD Primary Care Provider Unavail able Encounter Details Date Type Department Care Team (Latest Contact Info) Description 09/22/2003 Outpatient Historical [facility] Medicine [place] [facility] [address] [phone] Magdi Francisco MD NO ADDRESS ON FILE BRONCHITIS NOS (Primary Dx); ACUTE URI NOS; ACUTE PHARYNGITIS; ACUTE LARYNGITIS WO OBSTRUCTION Social History Tobacco Use Types Packs/Day Years Used Date Smoking Tobacco: Never Assessed Comments Unknown Sex and Gender Information Value Date Recorded Sex Assigned at Not on file Legal Sex Female 2:58 AM EMR ANALYST Gender Identity Not on file Sexual Orientation Not on file documented as of this encounter Plan of Treatment Not on file documented as of this encounter Visit Diagnoses Diagnosis Bronchitis, not specified as acute or chronic- Primary Acute upper respiratory infections of unspecified site Acute pharyngitis Acute laryngitis, without mention of obstruction documented in this encounter Care Teams Hairspring Adjuster Relationship Specialty Start Date End Date Magdi Francisco MD NO ADDRESS ON FILE PCP - General 10/30/02 documented as of this encounter
--- OUTSIDE RECORDS SUMMARY | 2025-02-18 07:46 | XMS_ITS | Encounter Summary ---
Author Organization [facility] Address [address] [facility] Attn: Epic Prelude ADT JEANETTE LEDBETTER [phone] Care Team Providers Care Information Security Systems Instructor Name Role Phone Magdi Francisco MD Primary Care Provider Unavail able Encounter Details Date Type Department Care Team (Late st Contact Info) Description 05/06/2002 Outpatient Historical Magdi Francisco MD NO ADDRESS ON FILE Social History Tobacco Use Types Packs/Day Years Used Date Smoking Tobacco: Never Assessed Comments Unknown Sex and Gender Information Value Date Recorded Sex Assigned at Not on file Legal Sex Female 2:58 AM MANAGER LEASING Gender Identity Not on file Sexual Orientation Not on file documented as of this encounter Plan of Treatment Not on file documented as of this encounter Visit Diagnoses Not on filedocumented in this encounter Care Teams Information Security Systems Instructor Relationship Specialty Start Date End Date Magdi Francisco MD NO ADDRESS ON FILE PCP - General 10/30/02 documented as of this encounter
--- OUTSIDE RECORDS SUMMARY | 2025-02-18 07:46 | XMS_ITS | Encounter Summary ---
Author Organization [facility] Address [address] [facility] Attn: Epic Prelude ADT JEANETTE LEDBETTER [phone] Care Team Providers Care Box Lidder Name Role Phone Magdi Francisco MD Primary Care Provider Unavail able Encounter Details Date Type Department Care Team (Late st Contact Info) Description 02/27/2000 Outpatient Historical Hawk Serna MD [address] [place] [phone] Social History Tobacco Use Types Packs/Day Years Used Date Smoking Tobacco: Never Assessed Comments Unknown Sex and Gender Information Value Date Recorded Sex Assigned at Not on file Legal Sex Female 2:58 AM HOUSECLEANER FLOOR Gender Identity Not on file Sexual Orientation Not on file documented as of this encounter Plan of Treatment Not on file documented as of this encounter Visit Diagnoses Not on filedocumented in this encounter Care Teams Box Lidder Relationship Specialty Start Date End Date Magdi Francisco MD NO ADDRESS ON FILE PCP - General 10/30/02 documented as of this encounter
--- OUTSIDE RECORDS SUMMARY | 2025-02-18 07:46 | XMS_ITS | Clinical Summary ---
Author Organization [facility] Address [address] [place] [address] Phone Care Team Providers Care Whale Fisherman Name Role Phone Magdi Francisco MD Primary Care Provider Unavail able Allergies Active Allergy Reactions Criticality Noted Date Comments Morphine Rash,Swelling,Other (See Comments) High 02/01/2018 Glossitis Penicillins Rash Low 02/01/2018 Quinine Rash Low 02/01/2018 Sulfa (Sulfonamide Antibiotics) Unknown 02/01/2018 Medications lisinopril (PRINIVIL) 40 mg tablet Take 40 mg by mouth daily. Active warfarin (COUMADIN) 5 mg tablet Take 5 mg by mouth see administration instructions Patient doesn't know how what her dose is . Active atorvastatin (LIPITOR) 40 mg tablet Take 40 mg by mouth daily at bedtime. Active diltiaZEM (CARDIZEM) 60 mg tablet Take 60 mg by mouth 3 times daily. Active FLUoxetine (PROzac) 20 mg capsule Take 20 mg by mouth daily. Active hydrOXYzine HCl (ATARAX) 50 mg tablet Take 50 mg by mouth daily. Active oxybutynin chloride (DITROPAN) 5 mg tablet Take 5 mg by mouth 2 times daily. Active furosemide (LASIX) 40 mg tablet Take 40 mg by mouth daily. Active warfarin (COUMADIN) 2.5 mg tablet Take 2.5 mg by mouth see administration instructions Patient is uncertain . Active folic acid (FOLVITE) 1 mg tablet Take 1 mg by mouth daily. Active rOPINIRole (REQUIP) 1 mg tablet Take 1 mg by mouth daily. Active HYDROcodone-acet aminophen (NORCO) 7.5-325 mg Tablet Take 1 Tablet by mouth every 12 hours. Active ipratropium-albu terol (DUONEB) 0.5 mg-3 mg(2.5 mg base)/3 mL Solution for Nebulization Take 3 mL by inhalation 4 times daily. Active OTHER 4.5 to 5 liters O2 per nasal canula continuously . Active Active Problems Problem Noted Date Diagnosed Date Chronic anticoagulation 03/03/2018 Overview (03/03/2018): On warfarin Chronic respiratory failure with hypoxia 018 Acute chest pain 02/02/2018 COPD (chronic obstructive pulmonary disease) Type 2 diabetes mellitus with hyperglycemia 01/07 Memory impairment 02/02/2018 Morbid obesity with BMI of 45.0-49.9, adult 01/07 Essential hypertension 02/02/2018 Chronic heart failure 02/02/2018 History of stroke 02/02/2018 Small bowel obstruction due to adhesions 018 Immunizations Immunization Administration Dates Next Due (PNEUMOVAX 23)(50 YRS UP) PN EUMOCOCCAL POLYSACCHARIDE (PPV23) 0.5 ML, IM 08/01/2000 Influenza Seasonal Unspecifi ed Formulation IM 04/28/2003,05/05/2002,05/10/2001,08/01 Family History Medical History Relation Name Comments Heart Disease Brother 1 Diabetes Brother 2 Heart Disease Brother 2 Unknown Brother 3 Heart Disease Father of heart attack Diabetes Mother Other Mother of old age Heart Disease Sister 1 Diabetes Sister 2 Heart Disease Sister 2 Hypertension Sister 2 Cancer Sister 3 of some ty pe of cancer Cancer Sister 4 of bone ca ncer Cancer Son 1 Other Son 2 narcolepsy No Known Problems Son 3 Relation Name Status Comments Brother 1 Brother 2 Brother 3 Alive Daughter Alive Father Mother Sister 1 Sister 2 Alive Sister 3 Sister 4 Son 1 Alive Son 2 Alive Son 3 Alive Social History Tobacco Use Types Packs/Day Years Used Date Smoking Tobacco: Some Days Cigarettes Smokeless Tobacco: Never Comments:3 cigarettes a week Alcohol Use Standard Drinks/Week Comments No 0 (1 standard drink = 0.6 oz pur e alcohol) Comments Unknown Sex and Gender Information Value Date Recorded Sex Assigned at Not on file Legal Sex Female 2:58 AM AIRPLANE CAPTAIN Gender Identity Not on file Sexual Orientation Not on file Last Filed Vital Signs Vital Sign Reading Time Taken Comments Blood Pressure 122/62 02/04/2018 12:00 PM CDT Pulse 68 02/04/2018 12:00 PM CDT Temperature 36.7 C (98 F) 02/04/2018 12:00 PM CDT Respiratory Rate 20 02/04/2018 12:0 0 PM CDT Oxygen Saturation 99% 02/04/2018 12: 00 PM CDT Inhaled Oxygen Concentration - - Weight 125.4 kg (276 lb 6.4 oz) 02/04/2018 6:00 AM CDT Height 162.6 cm (5' 4 ) 02/01/2018 10:1 7 PM CDT Body Mass Index 47.44 02/01/2018 10:17 PM CDT Plan of Treatment Health Maintenance Due Date Last Done Comments DIABETES ANNUAL FOOT EXAM 1961 DIABETES ANNUAL RETINAL EXAM 1961 DIABETES MICROALBUMIN ANNUAL SCREEN 1961 LDL CHOLESTEROL ANNUAL 1961 DTAP/TDAP/TD VACCINES (1 - Tdap) 1962 ZOSTER VACCINE (1 of 2) 1993 PNEUMOCOCCAL VACCINE 50+ YEA RS (2 of 2 - PCV) 08/01/2001 08/01/2000 OSTEOPOROSIS SCREENING 2008 RSV VACCINE (60+ or ) (1 - 1-dose 75+ series) 2018 DIABETES HBA1C Q 6 MONTHS 08/04/2018 02/01/2018, 01/2000 INFLUENZA VACCINE (#1) 02/06/202504/28/200 3, 05/05/2002, 05/10/2001, Additional history exists Procedures Procedure Name Priority Date/Time Associated Diagnosis Comments HEMOGLOBIN A1C Routine 02/01/2018 10:35 PM CDT from Last 3 Months or Most Recently Relevant to Health Maintenance Results * (ABNORMAL) HEMOGLOBIN A1C (02/01/2018 10:35 PM CDT) HEMOGLOBIN A1C 13.6(H) 4.0 - 6.0 % 02/04/2018 10:08 AM CDT [facility] EST. AVG GLUCOSE, A1C 344 mg/dL 02/04/2018 10:08 AM CDT [facility] Blood BLOOD SPECIMEN / Unknown Venipuncture / Unknown 02/01/2018 10:35 PM CDT 02/01/2018 10:40 PM CDT Narrative [facility] - 02/04/2018 10:08 AM CDT HGB A1C INTERPRETATION NORMAL: <5.7% PRE-DIABETES: 5.7 - 6.4% DIABETES: 6.5% OR GREATER us Gato Naylor MD CHEMISTRY ORDERABLES Final Resul t GW[facility]YN [facility] CLIA# [id number] [address] [place] [address] from Last 3 Months or Most Recently Relevant to Health Maintenance Insurance MEDICAID [place] DUAL COMPLETE [facility] PPO D-SNP Advance Directives For more information, please contact: [phone] Documents on File Type Date Recorded Patient Music Typographer Expl anation Advance Directive Living Will 02/02/2018 3:19 PM Advance Directive Living Will Advance Directive POA 02/02/2018 3:18 PM A dvance Directive POA * Full Code (Latest Code Status on File) Date Activated Date Inactivated Comments 02/01/2018 6:27 PM 02/03/2018 6:13 PM Care Teams Whale Fisherman Relationship Specialty Start Date End Date Magdi Francisco MD NO ADDRESS ON FILE PCP - General 10/30/02
--- OUTSIDE RECORDS SUMMARY | 2025-02-18 07:46 | XMS_ITS | Encounter Summary ---
Author Organization [facility] Address [address] [place] [address] Care Team Providers Care Valuer Name Role Phone Magdi Francisco MD Primary Care Provider Unavail able Encounter Details Date Type Department Care Team (Latest Contact Info) Description 05/28/2001 Outpatient Historical [facility] Medicine [address] [phone] Hawk Serna MD [address] [phone] ACUTE BRONCHITIS (Primary Dx); OBSTR CHR BRONCHITIS W AC EXACERB (CMS/HCC); HYPERTENSION NOS; NEUROTIC DEPRESSION Social History Tobacco Use Types Packs/Day Years Used Date Smoking Tobacco: Never Assessed Comments Unknown Sex and Gender Information Value Date Recorded Sex Assigned at Not on file Legal Sex Female 2:58 AM REJECT OPENER AND FILLER Gender Identity Not on file Sexual Orientation Not on file documented as of this encounter Plan of Treatment Not on file documented as of this encounter Visit Diagnoses Diagnosis Acute bronchitis- Primary Obstructive chronic bronchitis with exacerbation (CMS/HCC) Obstructive chronic bronchitis with exacerbation Unspecified essential hypertension Dysthymic disorder documented in this encounter Care Teams Valuer Relationship Specialty Start Date End Date Magdi Francisco MD NO ADDRESS ON FILE PCP - General 10/30/02 documented as of this encounter
--- OUTSIDE RECORDS SUMMARY | 2025-02-18 07:46 | XMS_ITS | Encounter Summary ---
Author Organization [facility] Address [address] [place] [address] Care Team Providers Care Paper Cleaner Name Role Phone Magdi Francisco MD Primary Care Provider Unavail able Encounter Details Date Type Department Care Team (Latest Contact Info) Description 05/15/2000 Outpatient Historical [facility] Medicine [address] [phone] Ashley Sam MD [address] [place] [address] Generalized anxiety disorder (Primary Dx); Unspecified essential hypertension; Type II or unspecified type diabetes mellitus without mention of complication, not stated as uncontrolled Social History Tobacco Use Types Packs/Day Years Used Date Smoking Tobacco: Never Assessed Comments Unknown Sex and Gender Information Value Date Recorded Sex Assigned at Not on file Legal Sex Female 2:58 AM ROOF TECHNICIAN Gender Identity Not on file Sexual Orientation Not on file documented as of this encounter Plan of Treatment Not on file documented as of this encounter Visit Diagnoses Diagnosis Generalized anxiety disorder- Primary Unspecified essential hypertension Type II or unspecified type diabetes mellitus without mention of complication, not stated as uncontrolled documented in this encounter Care Teams Paper Cleaner Relationship Specialty Start Date End Date Magdi Francisco MD NO ADDRESS ON FILE PCP - General 10/30/02 documented as of this encounter
--- OUTSIDE RECORDS SUMMARY | 2025-02-18 07:46 | XMS_ITS | Encounter Summary ---
Author Organization [facility] Address [address] [place] [address] Care Team Providers Care Rink Rat Name Role Phone Magdi Francisco MD Primary Care Provider Unavail able Encounter Details Date Type Department Care Team (Latest Contact Info) Description 06/18/2002 Outpatient Historical [facility] [place] [facility] [address] [phone] Magdi Francisco MD NO ADDRESS ON FILE CHRONIC AIRWAY OBSTRUCTION NEC (CMS/[facility]) (Primary Dx); ACUTE BRONCHITIS Social History Tobacco Use Types Packs/Day Years Used Date Smoking Tobacco: Never Assessed Comments Unknown Sex and Gender Information Value Date Recorded Sex Assigned at Not on file Legal Sex Female 2:58 AM BILINGUAL SECRETARY Gender Identity Not on file Sexual Orientation Not on file documented as of this encounter Plan of Treatment Not on file documented as of this encounter Visit Diagnoses Diagnosis Chronic airway obstruction, not elsewhere classified (CMS/HCC)- Primary Chronic airway obstruction, not elsewhere classified Acute bronchitis documented in this encounter Care Teams Rink Rat Relationship Specialty Start Date End Date Magdi Francisco MD NO ADDRESS ON FILE PCP - General 10/30/02 documented as of this encounter
--- OUTSIDE RECORDS SUMMARY | 2025-02-18 07:46 | XMS_ITS | Encounter Summary ---
Author Organization [facility] Address [address] [place] [address] Care Team Providers Care Bolt Threader Name Role Phone Magdi Francisco MD Primary Care Provider Unavail able Encounter Details Date Type Department Care Team (Latest Contact Info) Description 12/02/2002 Outpatient Historical [facility] Family Medicine [place] [facility] [address] [phone] Magdi Francisco MD NO ADDRESS ON FILE DIABETES UNCOMPL ADULT-TYPE II (CMS/HCC) (Primary Dx) Social History Tobacco Use Types Packs/Day Years Used Date Smoking Tobacco: Never Assessed Comments Unknown Sex and Gender Information Value Date Recorded Sex Assigned at Not on file Legal Sex Female 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
--- OUTSIDE RECORDS SUMMARY | 2025-02-18 07:46 | XMS_ITS | Encounter Summary ---
Author Organization [facility] Address [address] [place] [address] Care Team Providers Care Advertising Dispatch Clerks Supervisor Name Role Phone Magdi Francisco MD Primary Care Provider Unavail able Encounter Details Date Type Department Care Team (Latest Contact Info) Description 06/16/1998 Outpatient Historical [facility] Internal Medicine- [address] [phone] Melania Lindsay MD NO ADDRESS ON FILE Chronic ischemic heart disease, unspecified (Primary Dx); Unspecified essential hypertension Social History Tobacco Use Types Packs/Day Years Used Date Smoking Tobacco: Never Assessed Comments Unknown Sex and Gender Information Value Date Recorded Sex Assigned at Not on file Legal 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
--- OUTSIDE RECORDS SUMMARY | 2025-02-18 07:46 | XMS_ITS | Encounter Summary ---
Author Organization [facility] Address [address] [place] [address] Care Team Providers Care Lance Crewmember/Mlrs Sergeant Name Role Phone Magdi Francisco MD Primary Care Provider Unavail able Encounter Details Date Type Department Care Team (Latest Contact Info) Description 10/13/2003 Outpatient Historical [facility] Family Medicine [place] [facility] [address] [phone] Magdi Francisco MD NO ADDRESS ON FILE BRONCHITIS NOS (Primary Dx); HYPOVOLEMIA Social History Tobacco Use Types Packs/Day Years Used Date Smoking Tobacco: Never Assessed Comments Unknown Sex and Gender Information Value Date Recorded Sex Assigned at Not on file Legal Sex Female 2:58 AM MARIONETTE PERFORMER Gender Identity Not on file Sexual Orientation Not on file documented as of this encounter Plan of Treatment Not on file documented as of this encounter Visit Diagnoses Diagnosis Bronchitis, not specified as acute or chronic- Primary Volume depletion documented in this encounter Care Teams Lance Crewmember/Mlrs Sergeant Relationship Specialty Start Date End Date Magdi Francisco MD NO ADDRESS ON FILE PCP - General 10/30/02 documented as of this encounter
--- OUTSIDE RECORDS SUMMARY | 2025-02-18 07:46 | XMS_ITS | Encounter Summary ---
Author Organization [facility] Address [address] [place] [address] Care Team Providers Care Wastewater Treatment Supervisor Name Role Phone Magdi Francisco MD Primary Care Provider Unavail able Encounter Details Date Type Department Care Team (Latest Contact Info) Description 08/01/2000 Outpatient Historical [facility] Medicine [address] [phone] Hawk Serna MD [address] [phone] Type II or unspecified type diabetes mellitus without mention of complication, not stated as uncontrolled (Primary Dx); Shortness of breath; Need for other specified prophylactic vaccination against single bacterial disease; Need vaccination-viral disease Social History Tobacco Use Types Packs/Day Years Used Date Smoking Tobacco: Never Assessed Comments Unknown Sex and Gender Information Value Date Recorded Sex Assigned at Not on file Legal Sex Female 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 Gender Identity Not on file Sexual Orientation Not on file documented as of this encounter Plan of Treatment Not on file documented as of this encounter Visit Diagnoses Diagnosis Type II or unspecified type diabetes mellitus without mention of complication, not stated as uncontrolled- Primary Shortness of breath Need for other specified prophylactic vaccination against single bacterial disease Need vaccination-viral disease Need for prophylactic vaccination and inoculation against other viral diseases documented in this encounter Care Teams Wastewater Treatment Supervisor Relationship Specialty Start Date End Date Magdi Francisco MD NO ADDRESS ON FILE PCP - General 10/30/02 documented as of this encounter
--- OUTSIDE RECORDS SUMMARY | 2025-02-18 07:46 | XMS_ITS | Encounter Summary ---
Author Organization [facility] Address [address] [place] [address] Care Team Providers Care Production Analyst Name Role Phone Magdi Franicsco MD Primary Care Provider Unavail able Encounter Details Date Type Department Care Team (Latest Contact Info) Description 02/27/2000 Outpatient Historical [facility] Medicine [address] [phone] Hawk Serna MD [address] [phone] Unspecified essential hypertension (Primary Dx); Type II or unspecified type diabetes mellitus without mention of complication, not stated as uncontrolled; Other malaise and fatigue Social History Tobacco Use Types Packs/Day Years Used Date Smoking Tobacco: Never Assessed Comments Unknown Sex and Gender Information Value Date Recorded Sex Assigned at Not on file Legal Sex Female 2:58 AM CLINICAL SUPPORT MANAGER Gender Identity Not on file Sexual Orientation Not on file documented as of this encounter Plan of Treatment Not on file documented as of this encounter Visit Diagnoses Diagnosis Unspecified essential hypertension- Primary Type II or unspecified type diabetes mellitus without mention of complication, not stated as uncontrolled Other malaise and fatigue documented in this encounter Care Teams Production Analyst Relationship Specialty Start Date End Date Magdi Francisco MD NO ADDRESS ON FILE PCP - General 10/30/02 documented as of this encounter
--- OUTSIDE RECORDS SUMMARY | 2025-02-18 07:46 | XMS_ITS | Encounter Summary ---
Author Organization [facility] Address [address] [place] [address] Care Team Providers Care Manager Fine Name Role Phone Magdi Francisco MD Primary Care Provider Unavail able Encounter Details Date Type Department Care Team (Latest Contact Info) Description 04/09/2002 Outpatient Historical [facility] Family Medicine [place] [id number] [phone] Magdi Francisco MD NO ADDRESS ON FILE CONTUSION OF HAND(S) (Primary Dx); CONTUSION OF WRIST; JOINT PAIN-FOREARM Social History Tobacco Use Types Packs/Day Years Used Date Smoking Tobacco: Never Assessed Comments Unknown Sex and Gender Information Value Date Recorded Sex Assigned at Not on file Legal Sex Female 2:[address] INSPECTOR Gender Identity Not on file Sexual Orientation Not on file documented as of this encounter Plan of Treatment Not on file documented as of this encounter Visit Diagnoses Diagnosis Contusion of hand(s)- Primary Contusion of wrist Pain in joint, forearm documented in this encounter Care Teams Manager Fine Relationship Specialty Start Date End Date Magdi Francisco MD NO ADDRESS ON FILE PCP - General 10/30/02 documented as of this encounter
--- OUTSIDE RECORDS SUMMARY | 2025-02-18 07:46 | XMS_ITS | Encounter Summary ---
Author Organization [facility] Address [address] [place] [address] Care Team Providers Care Employee Benefits Director Name Role Phone Magdi Francisco MD Primary Care Provider Unavail able Encounter Details Date Type Department Care Team (Latest Contact Info) Description 10/28/[address] 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
--- OUTSIDE RECORDS SUMMARY | 2025-02-18 07:46 | XMS_ITS | Clinical Summary ---
Author Organization [facility] Address [address] Perez: Epic Prelude ADT JEANETTE LEDBETTER [address] Care Team Providers Care Chronometer Assembler And Adjuster Name Role Phone Magdi Francisco MD Primary Care Provider Unavail able Allergies Active Allergy Reactions Criticality Noted Date Comments Morphine Rash,Swelling,Other (See Comments) High 02/01/2018 Glossitis Penicillins Rash Low 02/01/2018 Quinine Rash Low 02/01/2018 Sulfa (Sulfonamide Antibiotics) Unknown 02/01/2018 Medications FLUoxetine (PROzac) 20 mg capsule Take 20 mg by mouth daily. 02/03/20 18 Active diltiaZEM (CARDIZEM) 60 mg tablet Take 60 mg by mouth 3 times daily. 02/03/20 18 Active warfarin (COUMADIN) 2.5 mg tablet Take 2.5 mg by mouth see administration instructions Patient is uncertain . 02/03/20 18 Active hydrOXYzine HCL (ATARAX) 50 mg tablet Take 50 mg by mouth daily. 02/03/20 18 Active atorvastatin (LIPITOR) 40 mg tablet Take 40 mg by mouth daily at bedtime. 02/03/20 18 Active rOPINIRole (REQUIP) 1 mg tablet Take 1 mg by mouth daily. 02/03/20 18 Active OTHER 4.5 to 5 liters O2 per nasal canula continuously . 02/03/20 18 Active oxybutynin chloride (DITROPAN) 5 mg tablet Take 5 mg by mouth 2 times daily. 02/03/20 18 Active furosemide (LASIX) 40 mg tablet Take 40 mg by mouth daily. 02/03/20 18 Active ipratropium-albu teroL (DUONEB) 0.5 mg-3 mg(2.5 mg base)/3 mL Solution for Nebulization Take 3 mL by inhalation 4 times daily. 02/03/20 Active folic acid (FOLVITE) 1 mg tablet Take 1 mg by mouth daily. 02/03/20 Active HYDROcodone-acet aminophen (NORCO) 7.5-325 mg Tablet Take 1 Tablet by mouth every 12 hours. 02/03/20 18 Active lisinopriL (PRINIVIL) 40 mg tablet Take 40 mg by mouth daily. 02/03/20 Active warfarin (COUMADIN) 5 mg tablet Take 5 mg by mouth see administration instructions Patient doesn't know how what her dose is . 02/03/20 18 Active Active Problems Problem Noted Date Diagnosed Date Chronic respiratory failure with hypoxia 018 Chronic anticoagulation 03/03/2018 Overview (11/04/2020): On warfarin Acute chest pain 02/02/2018 Memory impairment 02/02/2018 Chronic heart failure 02/02/2018 Type 2 diabetes mellitus with hyperglycemia 01/07 Essential hypertension 02/02/2018 COPD (chronic obstructive pulmonary disease) Morbid obesity with BMI of 45.0-49.9, adult 01/07 History of stroke 02/02/2018 Small bowel obstruction due to adhesions 018 Immunizations Immunization Administration Dates Next Due (PNEUMOVAX 23)(50 YRS UP) PN EUMOCOCCAL POLYSACCHARIDE (PPV23) 0.5 ML, IM 08/01/2000 Influenza Seasonal Unspecifi ed Formulation IM 04/28/2003,05/05/2002,05/10/2001,08/01 Family History Medical History Relation Name Comments Diabetes Brother 1 Heart Disease Brother 1 Unknown Brother 2 Heart Disease Brother 3 Heart Disease Father of heart attack Diabetes Mother Other Mother of old age Diabetes Sister 1 Heart Disease Sister 1 Hypertension Sister 1 Cancer Sister 2 of bone ca ncer Heart Disease Sister 3 Cancer Sister 4 of some ty pe of cancer Other Son 1 narcolepsy No Known Problems Son 2 Cancer Son 3 Relation Name Status Comments Brother 1 Brother 2 Alive Brother 3 Daughter Alive Father Mother Sister 1 Alive Sister 2 Sister 3 Sister 4 Son 1 Alive Son 2 Alive Son 3 Alive Social History Tobacco Use Types Packs/Day Years Used Date Smoking Tobacco: Some Days Smokeless Tobacco: Never Comments:Quit smokin cig arettes a week Alcohol Use Standard Drinks/Week Comments No 0 (1 standard drink = 0.6 oz pur e alcohol) Comments Unknown Sex and Gender Information Value Date Recorded Sex Assigned at Not on file Legal Sex Female 3:11 PM TANK TENDER Gender Identity Not on file Sexual Orientation Not on file Last Filed Vital Signs Vital Sign Reading Time Taken Comments Blood Pressure 122/62 02/04/2018 12:00 PM CDT Pulse 68 02/04/2018 12:00 PM CDT Temperature 36.7 C (98 F) 02/04/2018 12:00 PM CDT Respiratory Rate 20 02/04/2018 12:0 0 PM CDT Oxygen Saturation - - Inhaled Oxygen Concentration - - Weight 125.4 [...] series) 2018 DIABETES HBA1C Q 6 MONTHS 08/05/20182017, 02/01/2018, 02/01/2018 INFLUENZA VACCINE (#1) 2025 3, 05/05/2002, 05/10/2001, Additional history exists Procedures Procedure Name Priority Date/Time Associated Diagnosis Comments HEMOGLOBIN A1C Routine 02/01/2018 10:35 PM CDT from Last 3 Months or Most Recently Relevant to Health Maintenance Results * (ABNORMAL) HEMOGLOBIN A1C (02/01/2018 10:35 PM CDT) HEMOGLOBIN A1C 13.6(H) 4.0 - 6.0 % 02/04/2018 10:08 AM CDT [facility] EST. AVG GLUCOSE, A1C 344 mg/dL 02/04/2018 10:08 AM CDT [facility] Blood BLOOD SPECIMEN / Unknown Venipuncture / Unknown 02/01/2018 10:35 PM CDT 02/01/2018 10:40 PM CDT Narrative [facility] - 02/04/2018 10:08 AM CDT If not available from last three months. HGB A1C INTERPRETATION NORMAL: <5.7% PRE-DIABETES: 5.7 - 6.4% DIABETES: 6.5% OR GREATER us Gato Naylor MD CHEMISTRY ORDERABLES Final Resul t Performing Organization Address City/State/[facility] Co de Phone Number [facility] CLIA# [id number] [address] [place] [address] [facility] CLIA# [id number] [address] [place] [id number] from Last 3 Months or Most Recently Relevant to Health Maintenance Advance Directives For more information, please contact: [phone] Documents on File Type Date Recorded Patient Human Factors Specialist Expl anation Advance Directive POA 02/02/2018 3:19 PM A dvance Directive POA Advance Directive Living Will 02/02/2018 3:19 PM Advance Directive Living Will Care Teams Chronometer Assembler And Adjuster Relationship Specialty Start Date End Date Magdi Francisco MD NO ADDRESS ON FILE PCP - General 10/30/02
--- OUTSIDE RECORDS SUMMARY | 2025-02-18 07:46 | XMS_ITS | Encounter Summary ---
Author Organization [facility] Address [address] [place] [address] Care Team Providers Care Customer Account Specialist Name Role Phone Magdi Francisco MD Primary Care Provider Unavail able Encounter Details Date Type Department Care Team (Latest Contact Info) Description 10/01/2000 Outpatient Historical [facility] Medicine [address] [phone] [place] [address] [place] [phone] ASCVD (Primary Dx) Social History Tobacco Use Types Packs/Day Years Used Date Smoking Tobacco: Never Assessed Comments Unknown Sex and Gender Information Value Date Recorded Sex Assigned at Not on file Legal Sex Female 2:58 AM SANE NURSE Gender Identity Not on file Sexual Orientation Not on file documented as of this encounter Plan of Treatment Not on file documented as of this encounter Visit Diagnoses Diagnosis ASCVD- Primary Unspecified cardiovascular disease documented in this encounter Care Teams Customer Account Specialist Relationship Specialty Start Date End Date Magdi Francisco MD NO ADDRESS ON FILE PCP - General 10/30/02 documented as of this encounter
--- OUTSIDE RECORDS SUMMARY | 2025-02-18 07:46 | XMS_ITS | Encounter Summary ---
Author Organization [facility] Address [address] [place] [address] Care Team Providers Care Vascular Technologist Sonographer Name Role Phone aMgdi Francisco MD Primary Care Provider Unavail able Encounter Details Date Type Department Care Team (Latest Contact Info) Description 12/20/1999 Outpatient Historical [facility] Medicine [address] [phone] [place] [address] [place] [phone] Other and unspecified hyperlipidemia (Primary Dx) Social History Tobacco Use Types Packs/Day Years Used Date Smoking Tobacco: Never Assessed Comments Unknown Sex and Gender Information Value Date Recorded Sex Assigned at Not on file Legal Sex Female 2: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
--- OUTSIDE RECORDS SUMMARY | 2025-02-18 07:46 | XMS_ITS | Encounter Summary ---
Author Organization [facility] Address [address] [place] [address] Care Team Providers Care Barrel Tester Name Role Phone Magdi Francisco MD Primary Care Provider Unavail able Encounter Details Date Type Department Care Team (Latest Contact Info) Description 03/03/2002 Outpatient Historical [facility] Family Medicine [place] [facility] [address] [phone] Magdi Francisco MD NO ADDRESS ON FILE DIABETES UNCOMPL ADULT-UNCONTRLLED (Primary Dx); MORBID OBESITY (CMS/HCC); ANXIETY STATE NOS; DEPRESSIVE DISORDER NEC Social History Tobacco Use Types Packs/Day Years Used Date Smoking Tobacco: Never Assessed Comments Unknown Sex and Gender Information Value Date Recorded Sex Assigned at Not on file Legal Sex Female 2:58 AM RAILCAR CARPENTER Gender Identity Not on file Sexual Orientation Not on file documented as of this encounter Plan of Treatment Not on file documented as of this encounter Visit Diagnoses Diagnosis Type II or unspecified type diabetes mellitus without mention of complication, uncontrolled- Primary Morbid obesity (CMS/HCC) Morbid obesity Anxiety state, unspecified Depressive disorder, not elsewhere classified documented in this encounter Care Teams Barrel Tester Relationship Specialty Start Date End Date Magdi Francisco MD NO ADDRESS ON FILE PCP - General 10/30/02 documented as of this encounter
--- OUTSIDE RECORDS SUMMARY | 2025-02-18 07:46 | XMS_ITS | Encounter Summary ---
Author Organization [facility] Address [address] [place] [address] Care Team Providers Care Maintenance Planning Clerk Name Role Phone Magdi Francisco MD Primary Care Provider Unavail able Encounter Details Date Type Department Care Team (Latest Contact Info) Description 02/17/2003 Outpatient Historical [facility] Family Medicine [place] [address] [phone] Magdi Francisco MD NO ADDRESS ON FILE CHEST PAIN NOS (Primary Dx) Social History Tobacco Use Types Packs/Day Years Used Date Smoking Tobacco: Never Assessed Comments Unknown Sex and Gender Information Value Date Recorded Sex Assigned at Not on file Legal Sex Female 2:58 AM DETENTION SERGEANT Gender Identity Not on file Sexual Orientation Not on file documented as of this encounter Plan of Treatment Not on file documented as of this encounter Visit Diagnoses Diagnosis Chest pain, unspecified- Primary documented in this encounter Care Teams Maintenance Planning Clerk Relationship Specialty Start Date End Date Magdi Francisco MD NO ADDRESS ON FILE PCP - General 10/30/02 documented as of this encounter
--- OUTSIDE RECORDS SUMMARY | 2025-02-18 07:46 | XMS_ITS | Encounter Summary ---
Author Organization [facility] Address [address] [place] [address] Care Team Providers Care Jewelry Repairer Name Role Phone Magdi Francisco MD Primary Care Provider Unavail able Encounter Details Date Type Department Care Team (Latest Contact Info) Description 01/05/2000 Outpatient Historical [facility] Medicine [address] [phone] Hawk Serna MD [address] [phone] Type II or unspecified type diabetes mellitus without mention of complication, not stated as uncontrolled (Primary Dx); Unspecified essential hypertension Social History Tobacco Use Types Packs/Day Years Used Date Smoking Tobacco: Never Assessed Comments Unknown Sex and Gender Information Value Date Recorded Sex Assigned at Not on file Legal Sex Female 2:58 AM ELECTRONIC TECHNOLOGIST Gender Identity Not on file Sexual Orientation Not on file documented as of this encounter Plan of Treatment Not on file documented as of this encounter Visit Diagnoses Diagnosis Type II or unspecified type diabetes mellitus without mention of complication, not stated as uncontrolled- Primary Unspecified essential hypertension documented in this encounter Care Teams Jewelry Repairer Relationship Specialty Start Date End Date Magdi Francisco MD NO ADDRESS ON FILE PCP - General 10/30/02 documented as of this encounter
--- OUTSIDE RECORDS SUMMARY | 2025-02-18 07:46 | XMS_ITS | Encounter Summary ---
Author Organization [facility] Address [address] [place] [address] Care Team Providers Care Marketing Support Manager Name Role Phone Magdi Francisco MD Primary Care Provider Unavail able Encounter Details Date Type Department Care Team (Latest Contact Info) Description 05/05/2002 Outpatient Historical [facility] Family Medicine [place] [facility] [address] [phone] Magdi Francisco MD NO ADDRESS ON FILE DIABETES UNCOMPL ADULT-TYPE II (CMS/HCC) (Primary Dx); JOINT PAIN-FOREARM; VACCINE FOR INFLUENZA Social History Tobacco Use Types Packs/Day Years Used Date Smoking Tobacco: Never Assessed Comments Unknown Sex and Gender Information Value Date Recorded Sex Assigned at Not on file Legal Sex Female 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 Gender Identity Not on file Sexual Orientation Not on file documented as of this encounter Plan of Treatment Not on file documented as of this encounter Visit Diagnoses Diagnosis Type II or unspecified type diabetes mellitus without mention of complication, not stated as uncontrolled- Primary Pain in joint, forearm Need vaccination-viral disease Need for prophylactic vaccination and inoculation against other viral diseases documented in this encounter Care Teams Marketing Support Manager Relationship Specialty Start Date End Date Magdi Francisco MD NO ADDRESS ON FILE PCP - General 10/30/02 documented as of this encounter
--- OUTSIDE RECORDS SUMMARY | 2025-02-18 07:46 | XMS_ITS | Encounter Summary ---
Author Organization [facility] Address [address] [place] [address] Care Team Providers Care Waste Water Worker Name Role Phone Magdi Francisco MD Primary Care Provider Unavail able Encounter Details Date Type Department Care Team (Latest Contact Info) Description 01/16/2000 Outpatient Historical [facility] Medicine [address] [phone] [place] [address] [place] [phone] Type II or unspecified type diabetes mellitus without mention of complication, not stated as uncontrolled (Primary Dx); Unspecified essential hypertension Social History Tobacco Use Types Packs/Day Years Used Date Smoking Tobacco: Never Assessed Comments Unknown Sex and Gender Information Value Date Recorded Sex Assigned at Not on file Legal Sex Female 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
--- OUTSIDE RECORDS SUMMARY | 2025-02-18 07:46 | XMS_ITS | Encounter Summary ---
Author Organization [facility] Address [address] [place] [address] Care Team Providers Care Sheet Metal Layout Mechanic Name Role Phone Magdi Francisco MD Primary Care Provider Unavail able Encounter Details Date Type Department Care Team (Latest Contact Info) Description 05/10/2001 Outpatient Historical [facility] Medicine [address] [phone] Hawk Serna MD [address] [phone] DIABETES UNCOMPL ADULT-TYPE II (CMS/[facility]) (Primary Dx); HYPERTENSION NOS; ACUTE BRONCHITIS; TOBACCO USE DISORDER; VACCINE FOR INFLUENZA Social History Tobacco Use Types Packs/Day Years Used Date Smoking Tobacco: Never Assessed Comments Unknown Sex and Gender Information Value Date Recorded Sex Assigned at Not on file Legal Sex Female 2:[address]OTOGRAPHER Gender Identity Not on file Sexual Orientation Not on file documented as of this encounter Plan of Treatment Not on file documented as of this encounter Visit Diagnoses Diagnosis Type II or unspecified type diabetes mellitus without mention of complication, not stated as uncontrolled- Primary Unspecified essential hypertension Acute bronchitis Tobacco use disorder Need vaccination-viral disease Need for prophylactic vaccination and inoculation against other viral diseases documented in this encounter Care Teams Sheet Metal Layout Mechanic Relationship Specialty Start Date End Date Magdi Francisco MD NO ADDRESS ON FILE PCP - General 10/30/02 documented as of this encounter
--- OUTSIDE RECORDS SUMMARY | 2025-02-18 07:46 | XMS_ITS | Encounter Summary ---
Author Organization [facility] Address [address] [facility] Attn: Epic Prelude ADT JEANETTE LEDBETTER [phone] Care Team Providers Care Tobacco Drummer Name Role Phone Magdi Francisco MD Primary Care Provider Unavail able Encounter Details Date Type Department Care Team (Late st Contact Info) Description 05/10/2001 Outpatient Historical Hawk Serna MD [address] [place] [phone] Social History Tobacco Use Types Packs/Day Years Used Date Smoking Tobacco: Never Assessed Comments Unknown Sex and Gender Information Value Date Recorded Sex Assigned at Not on file Legal Sex Female 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
--- OUTSIDE RECORDS SUMMARY | 2025-02-18 07:46 | XMS_ITS | Encounter Summary ---
Author Organization [facility] Address [address] [place] [address] Care Team Providers Care Optometrist President/Practice Owner Name Role Phone Magdi Francisco MD Primary Care Provider Unavail able Encounter Details Date Type Department Care Team (Latest Contact Info) Description 12/02/2002 Outpatient Historical [facility] Family Medicine [place] [facility] [address] [phone] Magdi Francisco MD NO ADDRESS ON FILE DIABETES UNCOMPL ADULT-TYPE II (CMS/HCC) (Primary Dx) Social History Tobacco Use Types Packs/Day Years Used Date Smoking Tobacco: Never Assessed Comments Unknown Sex and Gender Information Value Date Recorded Sex Assigned at Not on file Legal Sex Female 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
--- OUTSIDE RECORDS SUMMARY | 2025-02-18 07:46 | XMS_ITS | Encounter Summary ---
Author Organization [facility] Address [address] [facility] Attn: Epic Prelude ADT JEANETTE LEDBETTER [phone] Care Team Providers Care Microbiology Technician Name Role Phone Magdi Francisco MD Primary Care Provider Unavail able Encounter Details Date Type Department Care Team (Late st Contact Info) Description 12/14/1999 Outpatient Historical Hawk Serna MD [address] [place] [phone] Social History Tobacco Use Types Packs/Day Years Used Date Smoking Tobacco: Never Assessed Comments Unknown Sex and Gender Information Value Date Recorded Sex Assigned at Not on file Legal Sex Female 2:58 AM HEALTH EDUCATION COORDINATOR Gender Identity Not on file Sexual Orientation Not on file documented as of this encounter Plan of Treatment Not on file documented as of this encounter Visit Diagnoses Not on filedocumented in this encounter Care Teams Microbiology Technician Relationship Specialty Start Date End Date Magdi Francisco MD NO ADDRESS ON FILE PCP - General 10/30/02 documented as of this encounter
--- OUTSIDE RECORDS SUMMARY | 2025-02-18 07:46 | XMS_ITS | Encounter Summary ---
Author Organization [facility] Address [address] [place] [address] Care Team Providers Care Business Continuity Coordinator Name Role Phone Magdi Francisco MD Primary Care Provider Unavail able Encounter Details Date Type Department Care Team (Latest Contact Info) Description 02/25/2003 Outpatient Historical [facility] Cardiac Animal Physiologist [address] [place] [address] Mike Gonzalez MD NO ADDRESS ON FILE CORON ATHEROSCL MCGRATH CORON VESSEL (Primary Dx) Social History Tobacco Use Types Packs/Day Years Used Date Smoking Tobacco: Never Assessed Comments Unknown Sex and Gender Information Value Date Recorded Sex Assigned at Not on file Legal Sex Female 2:58 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
--- OUTSIDE RECORDS SUMMARY | 2025-02-18 07:46 | XMS_ITS | Encounter Summary ---
Author Organization [facility] Address [address] [place] [address] Care Team Providers Care Price Lister Name Role Phone Magdi Francisco MD Primary Care Provider Unavail able Encounter Details Date Type Department Care Team (Latest Contact Info) Description 12/19/[address] [facility] [address] [facility] [address] [place] [address] Ravinder Kraft MD NO ADDRESS ON FILE OT ABNORMAL RADIOLOG EXAM BREAST (Primary Dx) Social History Tobacco Use Types Packs/Day Years Used Date Smoking Tobacco: Never Assessed Comments Unknown Sex and Gender Information Value Date Recorded Sex Assigned at Not on file Legal Sex Female 2:58 AM SHAREMILKER Gender Identity Not on file Sexual Orientation Not on file documented as of this encounter Plan of Treatment Not on file documented as of this encounter Visit Diagnoses Diagnosis Other (abnormal) findings on radiological examination of breast- Primary documented in this encounter Care Teams Price Lister Relationship Specialty Start Date End Date Magdi Francisco MD NO ADDRESS ON FILE PCP - General 10/30/02 documented as of this encounter
--- OUTSIDE RECORDS SUMMARY | 2025-02-18 07:46 | XMS_ITS | Encounter Summary ---
Author Organization [facility] Address [address] [place] [address] Care Team Providers Care Rn Or Lpn Name Role Phone Magdi Francisco MD Primary Care Provider Unavail able Encounter Details Date Type Department Care Team (Latest Contact Info) Description 10/30/2002 Outpatient Historical [facility] [address] [place] [phone] Magdi Francisco MD NO ADDRESS ON FILE CHEST PAIN NOS (Primary Dx) Social History Tobacco Use Types Packs/Day Years Used Date Smoking Tobacco: Never Assessed Comments Unknown Sex and Gender Information Value Date Recorded Sex Assigned at Not on file Legal Sex Female 2:58 AM SKI TOPPER Gender Identity Not on file Sexual Orientation Not on file documented as of this encounter Plan of Treatment Not on file documented as of this encounter Visit Diagnoses Diagnosis Chest pain, unspecified- Primary documented in this encounter Care Teams Rn Or Lpn Relationship Specialty Start Date End Date Magdi Francisco MD NO ADDRESS ON FILE PCP - General 10/30/02 documented as of this encounter
--- OUTSIDE RECORDS SUMMARY | 2025-02-18 07:46 | XMS_ITS | Encounter Summary ---
Author Organization [facility] Address [address] [place] [address] Care Team Providers Care Scanner Operator Name Role Phone Magdi Francisco MD Primary Care Provider Unavail able Encounter Details Date Type Department Care Team (Latest Contact Info) Description 01/19/2000 Outpatient Historical [facility] Medicine [address] [phone] Ashley Sam MD [address] [place] [address] Type II or unspecified type diabetes mellitus without mention of complication, not stated as uncontrolled (Primary Dx); Dietary surveil/children's counselor Social History Tobacco Use Types Packs/Day Years Used Date Smoking Tobacco: Never Assessed Comments Unknown Sex and Gender Information Value Date Recorded Sex Assigned at Not on file Legal Sex Female 2:58 AM NATURAL GAS ENGINEER Gender Identity Not on file Sexual Orientation Not on file documented as of this encounter Plan of Treatment Not on file documented as of this encounter Visit Diagnoses Diagnosis Type II or unspecified type diabetes mellitus without mention of complication, not stated as uncontrolled- Primary Dietary surveil/children's counselor Dietary surveillance and counseling documented in this encounter Care Teams Scanner Operator Relationship Specialty Start Date End Date Magdi Francisco MD NO ADDRESS ON FILE PCP - General 10/30/02 documented as of this encounter
--- OUTSIDE RECORDS SUMMARY | 2025-02-18 07:46 | XMS_ITS | Encounter Summary ---
Author Organization [facility] Address [address] [facility] Attn: Epic Prelude ADT JEANETTE LEDBETTER [phone] Care Team Providers Care Inspector Electromechanical Name Role Phone Magdi Francisco MD Primary Care Provider Unavail able Encounter Details Date Type Department Care Team (Late st Contact Info) Description 06/04/2001 Outpatient Historical Hawk Serna MD [address] [place] [phone] Social History Tobacco Use Types Packs/Day Years Used Date Smoking Tobacco: Never Assessed Comments Unknown Sex and Gender Information Value Date Recorded Sex Assigned at Not on file Legal Sex Female 2:58 AM MEDICAL MALPRACTICE PARALEGAL Gender Identity Not on file Sexual Orientation Not on file documented as of this encounter Plan of Treatment Not on file documented as of this encounter Visit Diagnoses Not on filedocumented in this encounter Care Teams Inspector Electromechanical Relationship Specialty Start Date End Date Magdi Francisco MD NO ADDRESS ON FILE PCP - General 10/30/02 documented as of this encounter
--- OUTSIDE RECORDS SUMMARY | 2025-02-18 07:46 | XMS_ITS | Encounter Summary ---
Author Organization [facility] Address [address] [place] [address] Care Team Providers Care World Geography Teacher Name Role Phone Magdi Francisco MD Primary Care Provider Unavail able Encounter Details Date Type Department Care Team (Latest Contact Info) Description 02/03/2003 Outpatient Historical [facility] Family Medicine [place] [address] [phone] Magdi Francisco MD NO ADDRESS ON FILE CHEST PAIN NOS (Primary Dx); PALPITATIONS Social History Tobacco Use Types Packs/Day Years Used Date Smoking Tobacco: Never Assessed Comments Unknown Sex and Gender Information Value Date Recorded Sex Assigned at Not on file Legal Sex Female 2:58 AM MARKETING RECRUITER Gender Identity Not on file Sexual Orientation Not on file documented as of this encounter Plan of Treatment Not on file documented as of this encounter Visit Diagnoses Diagnosis Chest pain, unspecified- Primary Palpitations documented in this encounter Care Teams World Geography Teacher Relationship Specialty Start Date End Date Magdi Francisco MD NO ADDRESS ON FILE PCP - General 10/30/02 documented as of this encounter
--- OUTSIDE RECORDS SUMMARY | 2025-02-18 07:46 | XMS_ITS | Encounter Summary ---
Author Organization [facility] Address [address] [place] [address] Care Team Providers Care Sample Body Builder Name Role Phone Magdi Francisco MD Primary Care Provider Unavail able Encounter Details Date Type Department Care Team (Latest Contact Info) Description 05/07/2002 Outpatient Historical [facility] Jose L Burks MD [address] [place] [phone] SPRAIN OF WRIST NOS (Primary Dx) Social History Tobacco Use Types Packs/Day Years Used Date Smoking Tobacco: Never Assessed Comments Unknown Sex and Gender Information Value Date Recorded Sex Assigned at Not on file Legal Sex Female 2:58 AM RACE ENGINE BUILDER Gender Identity Not on file Sexual Orientation Not on file documented as of this encounter Plan of Treatment Not on file documented as of this encounter Visit Diagnoses Diagnosis Sprain of wrist, unspecified site- Primary documented in this encounter Care Teams Sample Body Builder Relationship Specialty Start Date End Date Magdi Francisco MD NO ADDRESS ON FILE PCP - General 10/30/02 documented as of this encounter
--- OUTSIDE RECORDS SUMMARY | 2025-02-18 07:46 | XMS_ITS | Encounter Summary ---
Author Organization [facility] Address [address] [place] [address] Care Team Providers Care Senior Administrative Associate Name Role Phone Magdi Francisco MD Primary Care Provider Unavail able Encounter Details Date Type Department Care Team (Latest Contact Info) Description 05/26/1998 Outpatient Historical [facility] Internal Medicine- [address] [phone] Melania Lindsay MD NO ADDRESS ON FILE Headache(784.0) (Primary Dx); Unspecified essential hypertension Social History Tobacco Use Types Packs/Day Years Used Date Smoking Tobacco: Never Assessed Comments Unknown Sex and Gender Information Value Date Recorded Sex Assigned at Not on file Legal Sex Female 2:58 AM LONG TERM ACUTE CARE REGISTERED NURSE Gender Identity Not on file Sexual Orientation Not on file documented as of this encounter Plan of Treatment Not on file documented as of this encounter Visit Diagnoses Diagnosis Headache(784.0)- Primary Headache Unspecified essential hypertension documented in this encounter Care Teams Senior Administrative Associate Relationship Specialty Start Date End Date Magdi Francisco MD NO ADDRESS ON FILE PCP - General 10/30/02 documented as of this encounter
--- OUTSIDE RECORDS SUMMARY | 2025-02-18 07:46 | XMS_ITS | Encounter Summary ---
Author Organization [facility] Address [address] [place] [address] Care Team Providers Care Boilerhouse Mechanic Name Role Phone Magdi Francisco MD Primary Care Provider Unavail able Encounter Details Date Type Department Care Team (Latest Contact Info) Description 02/05/2003 Outpatient Historical [facility] [address] [place] [address] Magdi Francisco MD NO ADDRESS ON FILE PREMATURE BEATS NEC (Primary Dx) Social History Tobacco Use Types Packs/Day Years Used Date Smoking Tobacco: Never Assessed Comments Unknown Sex and Gender Information Value Date Recorded Sex Assigned at Not on file Legal Sex Female 2:58 AM VETERINARY TECHNOLOGY 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
--- OUTSIDE RECORDS SUMMARY | 2025-02-18 07:46 | XMS_ITS | Encounter Summary ---
Author Organization [facility] Address [address] [facility] Attn: Epic Prelude ADT JEANETTE LEDBETTER [address] Care Team Providers Care Firearms Specialist Name Role Phone Magdi Francisco MD Primary Care Provider Unavail able Encounter Details Date Type Department Care Team (Late st Contact Info) Description 08/01/2000 Outpatient Historical Hawk Serna MD [address] [place] [phone] Social History Tobacco Use Types Packs/Day Years Used Date Smoking Tobacco: Never Assessed Comments Unknown Sex and Gender Information Value Date Recorded Sex Assigned at Not on file Legal Sex Female 2:58 AM UNLOAD ASSOCIATE Gender Identity Not on file Sexual Orientation Not on file documented as of this encounter Plan of Treatment Not on file documented as of this encounter Visit Diagnoses Not on filedocumented in this encounter Care Teams Firearms Specialist Relationship Specialty Start Date End Date Magdi Francisco MD NO ADDRESS ON FILE PCP - General 10/30/02 documented as of this encounter
--- OUTSIDE RECORDS SUMMARY | 2025-02-18 07:46 | XMS_ITS | Encounter Summary ---
Author Organization [facility] Address [address] [place] [address] Care Team Providers Care Risk Reduction Counselor Name Role Phone Magdi Francisco MD Primary Care Provider Unavail able Encounter Details Date Type Department Care Team (Latest Contact Info) Description 12/02/2002 Outpatient Historical [facility] [address] [place] [phone] Magdi Francisco MD NO ADDRESS ON FILE SCREENING MAMM-MAILG NEOPL-OTHER (Primary Dx) Social History Tobacco Use Types Packs/Day Years Used Date Smoking Tobacco: Never Assessed Comments Unknown Sex and Gender Information Value Date Recorded Sex Assigned at Not on file Legal Sex Female 2:58 AM HYDROGRAPHIC ENGINEER Gender Identity Not on file Sexual Orientation Not on file documented as of this encounter Plan of Treatment Not on file documented as of this encounter Visit Diagnoses Diagnosis Other screening mammogram- Primary documented in this encounter Care Teams Risk Reduction Counselor Relationship Specialty Start Date End Date Magdi Francisco MD NO ADDRESS ON FILE PCP - General 10/30/02 documented as of this encounter
--- OUTSIDE RECORDS SUMMARY | 2025-02-18 07:46 | XMS_ITS | Encounter Summary ---
Author Organization [facility] Address [address] [place] [address] Care Team Providers Care Golf Teacher Name Role Phone Magdi Francisco MD Primary Care Provider Unavail able Encounter Details Date Type Department Care Team (Latest Contact Info) Description 12/19/2002 Outpatient Historical [facility] Magdi Francisco MD NO ADDRESS ON FILE OT ABNORMAL RADIOLOG EXAM BREAST (Primary Dx) Social History Tobacco Use Types Packs/Day Years Used Date Smoking Tobacco: Never Assessed Comments Unknown Sex and Gender Information Value Date Recorded Sex Assigned at Not on file Legal Sex Female 2:58 AM [employer] Gender Identity Not on file Sexual Orientation Not on file documented as of this encounter Plan of Treatment Not on file documented as of this encounter Visit Diagnoses Diagnosis Other (abnormal) findings on radiological examination of breast- Primary documented in this encounter Care Teams Golf Teacher Relationship Specialty Start Date End Date Magdi Francisco MD NO ADDRESS ON FILE PCP - General 10/30/02 documented as of this encounter
== END 2025-02-15 18:15 | disposition home or self-care (01) ==
PROVIDERS: Emergency Provider Emergency Medicine; PCP Physician Assistant
DX: J44.1 Chronic obstructive pulmonary disease with (acute) exacerbation (principal); I10 Essential (primary) hypertension; E11.9 Type 2 diabetes mellitus without complications; E78.5 Hyperlipidemia, unspecified; K21.9 Gastro-esophageal reflux disease without esophagitis; J96.11 Chronic respiratory failure with hypoxia; Z79.899 Other long term (current) drug therapy; Z79.4 Long term (current) use of insulin; Z99.81 Dependence on supplemental oxygen; Z88.2 Allergy status to sulfonamides; Z88.0 Allergy status to penicillin; Z88.5 Allergy status to narcotic agent; Z87.891 Personal history of nicotine dependence; Z79.01 Long term (current) use of anticoagulants
CPT/HCPCS: 36415; 36600; 71045; 80053; 82805; 83880; 85025; 85610; 93005; 94640; 96374; 99285; J2919; J7613